=== PATIENT | female | born 1945 | race Caucasian/White ===

== ENCOUNTER 2018-04-03 01:07 | Emergency (ER) | payer OTHER ==
[2018-04-03] MEDS ORDERED: THIAMINE 200 MG/2 ML INJ ONE (03:04)
[2018-04-03] MEDS ORDERED: NA CHLORIDE 0.9% 1,000 ML ONE (03:04)
[2018-04-03 03:07] LABS: Absolute Lymphocytes (CBC) 1.5 K/uL (0.7-4.9); Absolute Monocytes 1.1 K/uL (0.1-1.3); Absolute Neutrophil 6.9 K/uL (1.8-8.0); Basophils % 0.5 % (0-1.3); Eosinophils % 4.6 % (0-4.4); Hematocrit 40.1 % (36.0-45.0); Lymphocytes % 15.4 % (15.3-44.8); MCH 33.7 pg (27.0-35.0); MCV 99.9 fL (80-100); MPV 7.5 fL (7.6-11.3); Monocytes % 10.7 % (3.3-12.3); RBC Red Blood Cell Count 4.02 M/uL (3.86-4.86)
[2018-04-03 03:20] LABS: Protime INR 0.97
[2018-04-03 03:27] LABS: Barbiturates NEGATIVE (NEGATIVE); Benzodiazepines POSITIVE (NEGATIVE); Cocaine NEGATIVE (NEGATIVE); METHAMPHETAM NEGATIVE (NEGATIVE); Methadone NEGATIVE (NEGATIVE); Opiates POSITIVE (NEGATIVE); Phencyclidine NEGATIVE (NEGATIVE); THC Cannibis NEGATIVE (NEGATIVE)
[2018-04-03 03:35] LABS: ALT/SGPT 15 U/L (12-78); AST/SGOT 22 U/L (15-37); Albumin 3.6 g/dL (3.4-5.0); Alkaline Phosphatase 142 U/L (45-117); BUN Blood Urea Nitrogen 12 mg/dL (7-18); Bicarbonate 29 mmol/L (21-32); Bilirubin Direct 0.1 mg/dL (0-0.2); Bilirubin Total 0.4 mg/dL (0.2-1.0); CKMB Creatine Kinase MB 8.2 ng/mL (0.3-3.6); Creatine Phosphokinase 139 U/L (26-192); Glucose Level 91 mg/dL (74-106); Magnesium 1.9 mg/dL (1.8-2.4); NT PRO-BNP 569 pg/mL (<125); Potassium 4.8 mmol/L (3.5-5.1); Protein, Total 7.6 g/dL (6.4-8.2); Sodium Level 136 mmol/L (136-145)
[2018-04-03 03:42] LABS: Alcohol Serum/Plasma < 3 mg/dL (<3)
[2018-04-03 03:45] LABS: Urine Blood NEGATIVE (NEG); Urine Glucose NEGATIVE (NEG); Urine Protein NEGATIVE (NEG); Urine Specific Gravity <1.005 (1.005-1.030)
--- NOTE | 2018-04-03 05:57 | ER ---
Nurse's Notes [facility] Name: Shilpa Richardson Age: 72 yrs Sex: Female : 1945 Arrival Date: 04/03/2018 Time: 01:13 Bed 7 Private MD: Diagnosis: Weakness;Fall due to bumping against object;Chronic obstructive pulmonary disease, unspecified Presentation: 04/03 01:13 Presenting complaint: EMS states: Pt was getting out of bed and felt dizzy and fell and tl2 hit her head on the wall. Denies LOC. Reports dizziness. Contusions noted to right side of forehead. Transition of care: patient was not received from another setting of care. Onset of symptoms was April 03, 2018 at 00:30. Risk Assessment: Do you want to hurt yourself or someone else? Patient reports no desire to harm self or others. Initial Sepsis Screen: Does the patient meet any 2 criteria? No. Patient's initial sepsis screen is negative. Does the patient have a suspected source of infection? No. Patient's initial sepsis screen is negative. Care prior to arrival: None. 01:13 Method Of Arrival: EMS: [facility] tl2 01:13 Acuity: PATRICIA 3 tl2 Triage Assessment: 01:19 General: Appears in no apparent distress. uncomfortable, Behavior is calm, cooperative, tl2 appropriate for age. Pain: Complains of pain in headache, forehead Pain does not radiate. Pain currently is 8 out of 10 on a pain scale. Neuro: Level of Consciousness is awake, alert, obeys commands, Oriented to person, place, time, situation. Neuro: Reports dizziness, headache. Cardiovascular: Denies chest pain. Respiratory: Airway is patent Respiratory effort is even, unlabored, Respiratory pattern is regular, symmetrical. GI: No signs and/or symptoms were reported involving the gastrointestinal system. : No signs and/or symptoms were reported regarding the genitourinary system. Derm: Skin is pink, warm \T\ dry. Injury Description: Head injury sustained to forehead is closed, did not have loss of consciousness, was sustained 1-2 hours ago. Historical: - Allergies: 01:19 Erythromycin; tl2 01:19 PENICILLINS; tl2 - Home Meds: :19 atenolol 50 mg Oral tab 1 tab once daily [Active]; baclofen 10 mg Oral tab 1 tab twice tl2 a day [Active]; clonidine HCl 0.1 mg Oral tab 1 tab PRN [Active]; Norvasc 5 mg Oral tab 1 tab once daily [Active]; Xanax 0.5 mg Oral tab 1 tab as needed [Active]; simvastatin 20 mg Oral tab 1 tab nightly [Active]; Symbicort 160-4.5 mcg/actuation inhalation HFAA 2 puffs 2 times per day [Active]; Restoril 30 mg Oral cap 1 cap once daily [Active]; Amitiza 8 mcg Oral cap 1 cap 2 times per day [Active]; - PMHx: 01:19 Alcoholism; Anxiety; Chronic pain; COPD; Depression; Hypertension; tl2 - PSHx: 01:19 Cholecystectomy; tl2 - Immunization history:: Adult Immunizations up to date. - Social history:: Smoking status: Patient/guardian denies using tobacco, the patient reports quitting approximately 4 years ago. - Ebola Screening: : No symptoms or risks identified at this time. Screenin:22 Abuse screen: Denies threats or abuse. Nutritional screening: No deficits noted. tl2 Tuberculosis screening: No symptoms or risk factors identified. Fall Risk Fall in past 12 months (25 points). Assessment: 01:19 General: see triage assessment. tl2 03:18 Reassessment: Patient appears in no apparent distress at this time. Patient and/or tl2 family updated on plan of care and expected duration. Pain level reassessed. Patient is alert, oriented x 3, equal unlabored respirations, skin warm/dry/pink. 06:04 Reassessment: Assisted patient to [facility]. lp1 06:20 Reassessment: Called taxi service, coming from [place]. Will discharge pt when taxi tl2 arrives. 07:10 Reassessment: Taxi here to transport pt. jl7 Vital Signs: 01:19 BP 156 / 83; Pulse 94; Resp 20; Temp 98.1(O); Pulse Ox 94% on 2 lpm NC; Weight 42.64 tl2 kg; Height 4 ft. 11 in. (149.86 cm); Pain 8/10; 03:16 BP 146 / 81; Pulse 83; Resp 18; Pulse Ox 92% on 2 lpm NC; tl2 04:42 BP 124 / 76; Pulse 85; Resp 18; Pulse Ox 96% on 2 lpm NC; tl2 06:53 BP 148 / 75 Supine; Pulse 84; tl2 06:53 BP 137 / 93 Sitting; Pulse 88; tl2 06:53 BP 156 / 84 Standing; Pulse 97; tl2 07:21 BP 144 / 83; Pulse 85; Resp 19; Pulse Ox 96% on 2 lpm NC; jl7 01:19 Body Mass Index 18.99 (42.64 kg, 149.86 cm) tl2 ED Course: 01:13 Patient arrived in ED. tl2 01:15 Triage completed. tl2 01:19 Arm band placed on right wrist. tl2 01:22 Patient has correct armband on for positive identification. Bed in low position. Call tl2 light in reach. Side rails up X2. 01:30 Inserted saline lock: 22 gauge in left forearm, using aseptic technique. ks6 02:09 Hector Gray MD is Attending Physician. priti 02:[address] via stretcher. kw1 02:14 CT Head Brain wo Cont In Process Unspecified. EDMS 02:25 CT C Spine In Process Unspecified. EDMS 02:40 XRAY Chest (1 view) In Process Unspecified. EDMS 03:14 Nataliia Beckford, ANJUM is Primary Nurse. tl2 07:21 No provider procedures requiring assistance completed. IV discontinued, intact, jl7 bleeding controlled, No redness/swelling at site. Pressure dressing applied. Administered Medications: 03:15 Drug: NS 0.9% 500 ml Route: IV; Rate: bolus; Site: left wrist; tl2 03:15 Drug: NS 0.9% 1000 ml Route: IV; Rate: 125 ml/hr; Site: left wrist; tl2 03:16 Drug: Thiamine 100 mg Route: IV; Rate: bolus; Site: left wrist; tl2 Point of Care Testing: Blood Glucose: 01:19 Blood Glucose: 112 mg/dL; tl2 Ranges: Outcome: 05:56 Discharge ordered by . priti 07:22 Discharged to home via wheelchair. jl7 07:22 Condition: stable 07:22 Discharge instructions given to patient, Instructed on discharge instructions, follow up and referral plans. Demonstrated understanding of instructions, follow-up care. 07:23 Patient left the ED. jl7 Signatures: Dispatcher [employer] EDMS Hector Gray MD MD cha Pena, Laura, RN RN lp1 Nataliia Beckford, RN RN tl2 Wade Hernandez, RN RN jl7 Amanda Cobos1 Elias Delatorre6
--- NOTE | 2018-04-03 05:57 | EDPHYS ---
Physician Documentation [facility] Name: Shilpa Richardson Age: 72 yrs Sex: Female : 1945 Arrival Date: 04/03/2018 Time: 01:13 Bed 7 Private MD: ED Physician Hector Gray HPI: 04/03 02:47 This 72 yrs old Female presents to ER via EMS with complaints of Fall Injury. [facility] 02:47 Details of fall: The patient fell from an upright position, while standing, while priti walking. Onset: The symptoms/episode began/occurred just prior to arrival. Associated injuries: The patient sustained injury to the head, neck injury. Severity of symptoms: At their worst the symptoms were mild, in the emergency department the symptoms are unchanged. The patient has experienced similar episodes in the past, multiple times. Historical: - Allergies: 01:19 Erythromycin; tl2 01:19 PENICILLINS; tl2 - Home Meds: 01:19 atenolol 50 mg Oral tab 1 tab once daily [Active]; baclofen 10 mg Oral tab 1 tab twice tl2 a day [Active]; clonidine HCl 0.1 mg Oral tab 1 tab PRN [Active]; Norvasc 5 mg Oral tab 1 tab once daily [Active]; Xanax 0.5 mg Oral tab 1 tab as needed [Active]; simvastatin 20 mg Oral tab 1 tab nightly [Active]; Symbicort 160-4.5 mcg/actuation inhalation HFAA 2 puffs 2 times per day [Active]; Restoril 30 mg Oral cap 1 cap once daily [Active]; Amitiza 8 mcg Oral cap 1 cap 2 times per day [Active]; - PMHx: 01:19 Alcoholism; Anxiety; Chronic pain; COPD; Depression; Hypertension; tl2 - PSHx: 01:19 Cholecystectomy; tl2 - Immunization history:: Adult Immunizations up to date. - Social history:: Smoking status: Patient/guardian denies using tobacco, the patient reports quitting approximately 4 years ago. - Ebola Screening: : No symptoms or risks identified at this time. ROS: 02:49 Constitutional: Negative for fever, chills, and weight loss, Eyes: Negative for injury, priti pain, redness, and discharge, ENT: Negative for injury, pain, and discharge, Neck: Negative for injury, pain, and swelling, Cardiovascular: Negative for chest pain, palpitations, and edema, Respiratory: Negative for shortness of breath, cough, wheezing, and pleuritic chest pain, Abdomen/GI: Negative for abdominal pain, nausea, vomiting, diarrhea, and constipation, Back: Negative for injury and pain, : Negative for injury, bleeding, discharge, and swelling, MS/Extremity: Negative for injury and deformity, Skin: Negative for injury, rash, and discoloration, Psych: Negative for depression, anxiety, suicide ideation, homicidal ideation, and hallucinations, Allergy/Immunology: Negative for hives, rash, and allergies, Endocrine: Negative for neck swelling, polydipsia, polyuria, polyphagia, and marked weight changes, Hematologic/Lymphatic: Negative for swollen nodes, abnormal bleeding, and unusual bruising. 02:49 Neuro: Positive for dizziness, near syncope, weakness. Exam: 02:49 Constitutional: This is a well developed, well nourished patient who is awake, alert, priti and in no acute distress. Eyes: Pupils equal round and reactive to light, extra-ocular motions intact. Lids and lashes normal. Conjunctiva and sclera are non-icteric and not injected. Cornea within normal limits. Periorbital areas with no swelling, redness, or edema. ENT: Nares patent. No nasal discharge, no septal abnormalities noted. Tympanic membranes are normal and external auditory canals are clear. Oropharynx with no redness, swelling, or masses, exudates, or evidence of obstruction, uvula midline. Mucous membranes moist. Neck: Trachea midline, no thyromegaly or masses palpated, and no cervical lymphadenopathy. Supple, full range of motion without nuchal rigidity, or vertebral point tenderness. No Meningismus. Chest/axilla: Normal chest wall appearance and motion. Nontender with no deformity. No lesions are appreciated. Cardiovascular: Regular rate and rhythm with a normal S1 and S2. No gallops, murmurs, or rubs. Normal PMI, no JVD. No pulse deficits. Respiratory: Lungs have equal breath sounds bilaterally, clear to auscultation and percussion. No rales, rhonchi or wheezes noted. No increased work of breathing, no retractions or nasal flaring. Abdomen/GI: Soft, non-tender, with normal bowel sounds. No distension or tympany. No guarding or rebound. No evidence of tenderness throughout. Back: No spinal tenderness. No costovertebral tenderness. Full range of motion. Skin: Warm, dry with normal turgor. Normal color with no rashes, no lesions, and no evidence of cellulitis. MS/ Extremity: Pulses equal, no cyanosis. Neurovascular intact. Full, normal range of motion. Psych: Awake, alert, with orientation to person, place and time. Behavior, mood, and affect are within normal limits. 02:49 Neuro: Orientation: is normal, appropriate for stated age, no acute changes, Mentation: is normal, appropriate for stated age, no acute changes, Memory: is normal, appropriate for stated age, no acute changes, Cranial nerves: grossly normal, is grossly normal based on the patient's age, no acute changes, Cerebellar function: no acute changes, Romberg testing is negative, normal finger to nose testing, Motor: moves all fours, Sensation: no obvious gross deficits, Gait: shuffling, Deep tendon reflexes are Babinski testing is normal, seizure activity. Vital Signs: 01:19 BP 156 / 83; Pulse 94; Resp 20; Temp 98.1(O); Pulse Ox 94% on 2 lpm NC; Weight 42.64 tl2 kg; Height 4 ft. 11 in. (149.86 cm); Pain 8/10; 03:16 BP 146 / 81; Pulse 83; Resp 18; Pulse Ox 92% on 2 lpm NC; tl2 04:42 BP 124 / 76; Pulse 85; Resp 18; Pulse Ox 96% on 2 lpm NC; tl2 06:53 BP 148 / 75 Supine; Pulse 84; tl2 06:53 BP 137 / 93 Sitting; Pulse 88; tl2 06:53 BP 156 / 84 Standing; Pulse 97; tl2 07:21 BP 144 / 83; Pulse 85; Resp 19; Pulse Ox 96% on 2 lpm NC; jl7 01:19 Body Mass Index 18.99 (42.64 kg, 149.86 cm) tl2 MDM: 02:09 Patient medically screened. [facility] 02:49 Data reviewed: vital signs, nurses notes, lab test result(s), EKG, radiologic studies. [facility] 04/03 02:15 Order name: Basic Metabolic Panel; Complete Time: 03:54 [facility] 04/03 02:15 Order name: CBC with Diff; Complete Time: 03:54 [facility] 04/03 02:15 Order name: Ckmb; Complete Time: 03:54 priti 04/03 02:15 Order name: CPK; Complete Time: 03:54 priti 04/03 02:15 Order name: LFT's; Complete Time: 03:54 priti 04/03 02:15 Order name: Magnesium; Complete Time: 03:54 [facility] 04/03 02:15 Order name: NT PRO-BNP; Complete Time: 03:54 [facility] 04/03 02:15 Order name: PT-INR; Complete Time: 03:54 priti 04/03 02:15 Order name: Ptt, Activated; Complete Time: 03:54 priti 04/03 02:15 Order name: Troponin (emerg Dept Use Only); Complete Time: 03:54 [facility] 04/03 02:15 Order name: Acetaminophen; Complete Time: 03:54 priti 04/03 02:15 Order name: ETOH Level; Complete Time: 03:54 [facility] 04/03 02:15 Order name: Salicylate; Complete Time: 03:54 [facility] 04/03 02:15 Order name: Urine Drug Screen; Complete Time: 03:54 [facility] 04/03 01:24 Order name: CT Head Brain wo Cont tl2 04/03 02:15 Order name: XRAY Chest (1 view) 04/03 02:15 Order name: EKG; Complete Time: 02:16 [facility] 04/03 02:15 Order name: Cardiac monitoring; Complete Time: 02:19 priti 04/03 02:15 Order name: EKG - Nurse/Tech; Complete Time: 02:19 [facility] 04/03 02:15 Order name: IV Saline Lock; Complete Time: 02:18 [facility] 04/03 02:15 Order name: Labs collected and sent; Complete Time: 02:19 [facility] 04/03 02:15 Order name: O2 Per Protocol; Complete Time: 02:18 priti 04/03 02:15 Order name: O2 Sat Monitoring; Complete Time: 02:18 priti 04/03 02:15 Order name: Urine Dipstick-Ancillary (obtain specimen); Complete Time: 03:16 priti 04/03 02:17 Order name: CT C Spine 04/03 03:15 Order name: Urine Dipstick--Ancillary (enter results); Complete Time: 03:54 sd 04/03 05:54 Order name: Orthostatics; Complete Time: 06:55 priti Administered Medications: 03:15 Drug: NS 0.9% 500 ml Route: IV; Rate: bolus; Site: left wrist; tl2 03:15 Drug: NS 0.9% 1000 ml Route: IV; Rate: 125 ml/hr; Site: left wrist; tl2 03:16 Drug: Thiamine 100 mg Route: IV; Rate: bolus; Site: left wrist; tl2 Point of Care Testing: Blood Glucose: 01:19 Blood Glucose: 112 mg/dL; tl2 Ranges: Critical Glucose Levels:Adult <50 mg/dl or >400 mg/dl <40 mg/dl or >180 mg/dl Disposition: 04/03/18 05:56 Discharged to Home. Impression: Weakness, Fall due to bumping against object, Chronic obstructive pulmonary disease, unspecified. - Condition is Stable. - Discharge Instructions: Chronic Bronchitis, Dizziness, Head Injury, Adult, Weakness, Fatigue, Weakness, [id number], Head Injury, Adult, [id number], Dizziness, [id number]. - Medication Reconciliation Form, Thank You Letter, Antibiotic Education, Prescription Opioid Use form. - Follow up: Private Physician; When: 2 - 3 days; Reason: Recheck today's complaints, Continuance of care, Re-evaluation by your physician. - Problem is new. - Symptoms have improved. Signatures: Dispatcher [employer] [facility] Hector Gray MD MD cha Knox, Taylor, RN RN tl2 Wade Hernandez RN RN jl7 Corrections: (The following items were deleted from the chart) 02:27 02:16 Head C Spine MPR Wo Con+CT.RAD.BRZ ordered. [facility] 07:23 05:56 04/03/2018 05:56 Discharged to Home. Impression: Weakness; Fall due to bumping jl7 against object; Chronic obstructive pulmonary disease, unspecified. Condition is Stable. Forms are Medication Reconciliation Form, Thank You Letter, Antibiotic Education, Prescription Opioid Use. Follow up: Private Physician; When: 2 - 3 days; Reason: Recheck today's complaints, Continuance of care, Re-evaluation by your physician. Problem is new. Symptoms have improved. priti
[2018-04-03 07:28] VITALS: TEMP 98.1
[2018-04-03 07:31] VITALS: O2SAT 96
[2018-04-03 07:33] VITALS: BP 144/83
--- NOTE | 2018-04-03 09:28 | EKG ---
Test Date: 2018-04-03 Test Time: 04:04:03 Scourer: AUDREY MEASUREMENT RESULTS: Intervals: Rate: 87 IN: 166 QRSD: 88 QT: 346 QTc: 416 Gerton: P: 95 IN: 166 QRS: 66 T: 66 INTERPRETIVE STATEMENTS: Normal sinus rhythm Normal ECG Compared to ECG 06/03/2017 00:23:59 No significant changes Electronically Signed On 04-03-18 09:28:09 CDT by Kee Haile
--- NOTE | 2018-04-03 11:30 | RAD REPORT ---
EXAM DESCRIPTION: CT - Head Brain Wo Cont - 04/03/2018 4:08 am CLINICAL HISTORY: Dizzy, syncope, fall A preliminary written report was provided at the time of the study, and the report was reviewed prio r to final dictation. COMPARISON: CT head July 2016 TECHNIQUE: Axial 5 mm thick images of the head were obtained without IV contrast. All CT scans are performed using dose optimization technique as appropriate and may include automated exposure control or mA/KV adjustment according to patient size. FINDINGS: No intracranial hemorrhage, mass, edema or shift of mid-line structures. No acute cortical based infarction. Mild to moderate atrophy and chronic ischemic changes are present. Ventricular si ze is in proportion to the volume loss. No abnormal extra-axial fluid collections. Arterial and phys iologic calcifications are present. Mastoid air cells and visualized portions of the paranasal sinuses are clear. No acute bony findings. IMPRESSION: Negative non-contrast CT head examination for acute finding. Atrophy and chronic ischemic changes are present similar to 2016.
--- NOTE | 2018-04-03 11:33 | RAD REPORT ---
EXAM DESCRIPTION: CT - C Spine Wo Con - 04/03/2018 2:25 am CLINICAL HISTORY: Fall, neck pain Preliminary imaging report was not available for correlation. COMPARISON: None. TECHNIQUE: Axial 2 mm thick images of the cervical spine were obtained with sagittal and coronal rec onstruction images generated and reviewed. All CT scans are performed using dose optimization technique as appropriate and may include automated exposure control or mA/KV adjustment according to patient size. FINDINGS: Cervical bodies are normal in height. There is slight anterior subluxation C2. Slight C4 a nd C5 retrolisthesis noted. Advanced degenerative disc disease is present from C2 - C6. Mild bilatera l foraminal encroachment at C4-5 and C5-6. Central spinal stenosis present at C4-5. No pathologic bon e process. No fracture or acute bony abnormality. No paraspinal mass or hematoma. Central canal detail is inherently limited on CT imaging. IMPRESSION: Prominent cervical spine degenerative change as detailed. No acute findings seen.
--- NOTE | 2018-04-03 11:34 | RAD REPORT ---
EXAM DESCRIPTION: RAD - Chest Single View - 04/03/2018 2:41 am CLINICAL HISTORY: Fall, weakness, dizziness, cough and congestion COMPARISON: July 2017 TECHNIQUE: AP portable chest image was obtained 0229 hours . FINDINGS: Interstitial fibrotic pattern is present similar to baseline. No superimposed failure, inf iltrate or mass. Heart and vasculature are normal. No measurable pleural effusion and no pneumothorax . No gross bony abnormality seen. No acute aortic findings suspected. IMPRESSION: No acute cardiopulmonary process. No significant change from comparison.
== END 2018-04-03 07:23 | disposition home or self-care (01) ==
LOC: ER 01:07
DX: R53.1 Weakness (principal); J44.9 Chronic obstructive pulmonary disease, unspecified
CPT/HCPCS: 36415; 70450; 71045; 72125; 80048; 80076; 80307 ×8; 80320; 80329 ×2; 81003; 82550; 82553; 83735; 83880; 84484; 85025; 85610; 85730; 93005; J3411; J7030; 96374; 99284

== ENCOUNTER 2018-04-04 09:30 | Observation (INO) | payer OTHER ==
[2018-04-04] MEDS ORDERED: NA CHLORIDE 0.9% 1,000 ML ONE (10:12)
[2018-04-04] MEDS ORDERED: THIAMINE 200 MG/2 ML INJ ONE (10:26)
[2018-04-04 10:56] LABS: Urine Blood NEGATIVE (NEG); Urine Glucose NEGATIVE (NEG); Urine Protein NEGATIVE (NEG); Urine pH 7.5 (5.0-7.0)
[2018-04-04 11:04] LABS: Barbiturates NEGATIVE (NEGATIVE); Benzodiazepines POSITIVE (NEGATIVE); Cocaine NEGATIVE (NEGATIVE); METHAMPHETAM NEGATIVE (NEGATIVE); Methadone NEGATIVE (NEGATIVE); Opiates NEGATIVE (NEGATIVE); Phencyclidine NEGATIVE (NEGATIVE); THC Cannibis NEGATIVE (NEGATIVE)
--- NOTE | 2018-04-04 11:27 | RAD REPORT ---
EXAM DESCRIPTION: CT - Head Brain Wo Cont - 04/04/2018 11:22 am CLINICAL HISTORY: Dizziness;Syncope Drowsiness COMPARISON: Head Brain Wo Cont dated 04/03/2018; Head Brain Wo Cont dated 07/07/2016 TECHNIQUE: All CT scans are performed using dose optimization technique as appropriate and may inclu de automated exposure control or mA/KV adjustment according to patient size. FINDINGS: No intracranial hemorrhage, hydrocephalus or extra-axial fluid collection.Mild generalized brain atrophy is present with mild periventricular and deep white matter chronic microvascular ische marcella changes.No areas of brain edema or evidence of midline shift. The paranasal sinuses and mastoids are clear. The calvarium is intact. IMPRESSION: No acute intracranial abnormality.
--- NOTE | 2018-04-04 11:49 | RAD REPORT ---
EXAM DESCRIPTION: RAD - Chest Single View - 04/04/2018 11:26 am CLINICAL HISTORY: COUGH Chest pain. COMPARISON: Chest Single View dated 04/03/2018; Chest Pa And Lat (2 Views) dated 07/12/2017; Chest Sin gle View dated 06/03/2017; Chest Single View dated 04/05/2016 FINDINGS: Portable technique limits examination quality. The lungs are grossly clear. The heart is upper limit normal in size. No displaced fractures. IMPRESSION: No acute intrathoracic process suspected.
--- NOTE | 2018-04-04 12:16 | RAD REPORT ---
EXAM DESCRIPTION: VAS - CP - 04/04/2018 11:22 am CLINICAL HISTORY: DIZZINESS Syncope COMPARISON: C Spine Wo Con dated 04/03/2018; Carotid Artery Bilateral dated 04/03/2016; CAROTID ARTERY BILATERAL dated 02/06/2015 TECHNIQUE: Real-time sonographic evaluation of both carotid systems was performed. Doppler interroga tion was performed with waveform tracing bilaterally. FINDINGS: Normal high resistance waveforms are noted in both external carotid arteries. The common c arotid arteries and internal carotid arteries show normal low resistance waveforms. Diffuse intimal thickening is present bilaterally. Multifocal multisegmental atherosclerotic plaquing is present, predominately hard plaque involving both carotid systems. Right common carotid artery mi d aspect demonstrates elevated peak systolic velocity 420 cm/second distal to a moderate stenosis cau sed by atherosclerotic plaque focally. Elevated peak systolic velocity in the left carotid bulb is no arianna to 220 cm/second, likely indicating stenosis of 50-70%. Antegrade flow seen in both vertebral arteries. Right ICA to CCA ratio is 1.6. Left ICA to CCA ratio is 1.8. IMPRESSION: A hemodynamically significant moderate stenosis right mid common carotid artery is suspe cted. Stenosis at the level of the left carotid bulb suspected estimated at 50-70%, caused by atherosclerot ic plaque. MR angiography of the neck vessels could be obtained for further assessment if clinically indicated.
[2018-04-04 12:28] LABS: Protime INR 0.97
--- NOTE | 2018-04-04 12:32 | EDPHYS ---
Physician Documentation [facility] Name: Shilpa Richardson Age: 72 yrs Sex: Female : 1945 Arrival Date: 04/04/2018 Time: 09:34 Bed 4 Private MD: Temo Tran E ED Physician Hector Gray HPI: 04/04 10:29 This 72 yrs old Female presents to ER via Wheelchair with complaints of Fall priti Injury, Doesn't Feel Right. 10:29 Details of fall: The patient fell from an upright position. Onset: The symptoms/episode priti began/occurred just prior to arrival. Associated injuries: The patient sustained injury to the head. Severity of symptoms: At their worst the symptoms were mild, in the emergency department the symptoms are unchanged. The patient has not experienced similar symptoms in the past. Historical: - Allergies: : Erythromycin; iw 09:59 PENICILLINS; iw - Home Meds: :59 Amitiza 8 mcg Oral cap 1 cap 2 times per day [Active]; atenolol 50 mg Oral tab 1 tab iw once daily [Active]; baclofen 10 mg Oral tab 1 tab twice a day [Active]; clonidine HCl 0.1 mg Oral tab 1 tab PRN [Active]; Norvasc 5 mg Oral tab 1 tab once daily [Active]; Restoril 30 mg Oral cap 1 cap once daily [Active]; simvastatin 20 mg Oral tab 1 tab nightly [Active]; Symbicort 160-4.5 mcg/actuation inhalation HFAA 2 puffs 2 times per day [Active]; Xanax 0.5 mg Oral tab 1 tab as needed [Active]; - PMHx: 09:59 Anxiety; Chronic pain; Alcoholism; COPD; Depression; Hypertension; iw - PSHx: 09:59 Cholecystectomy; iw - Immunization history:: Adult Immunizations not up to date. - Social history:: Smoking status: Patient/guardian denies using tobacco, the patient reports quitting approximately 5 years ago. - Ebola Screening: : Patient negative for fever greater than or equal to 101.5 degrees Fahrenheit, and additional compatible Ebola Virus Disease symptoms Patient denies exposure to infectious person Patient denies travel to an Ebola-affected area in the 21 days before illness onset No symptoms or risks identified at this time. - Family history:: not pertinent. ROS: 10:29 Constitutional: Negative for fever, chills, and weight loss, Eyes: Negative for injury, priti pain, redness, and discharge, ENT: Negative for injury, pain, and discharge, Neck: Negative for injury, pain, and swelling, Cardiovascular: Negative for chest pain, palpitations, and edema, Respiratory: Negative for shortness of breath, cough, wheezing, and pleuritic chest pain, Abdomen/GI: Negative for abdominal pain, nausea, vomiting, diarrhea, and constipation, Back: Negative for injury and pain, : Negative for injury, bleeding, discharge, and swelling, MS/Extremity: Negative for injury and deformity, Skin: Negative for injury, rash, and discoloration, Psych: Negative for depression, anxiety, suicide ideation, homicidal ideation, and hallucinations, Allergy/Immunology: Negative for hives, rash, and allergies, Endocrine: Negative for neck swelling, polydipsia, polyuria, polyphagia, and marked weight changes, Hematologic/Lymphatic: Negative for swollen nodes, abnormal bleeding, and unusual bruising. 10:29 Neuro: Positive for altered mental status, near syncope, weakness. Exam: 10:29 Constitutional: This is a well developed, well nourished patient who is awake, alert, priti and in no acute distress. Head/Face: Normocephalic, atraumatic. Eyes: Pupils equal round and reactive to light, extra-ocular motions intact. Lids and lashes normal. Conjunctiva and sclera are non-icteric and not injected. Cornea within normal limits. Periorbital areas with no swelling, redness, or edema. ENT: Nares patent. No nasal discharge, no septal abnormalities noted. Tympanic membranes are normal and external auditory canals are clear. Oropharynx with no redness, swelling, or masses, exudates, or evidence of obstruction, uvula midline. Mucous membranes moist. Neck: Trachea midline, no thyromegaly or masses palpated, and no cervical lymphadenopathy. Supple, full range of motion without nuchal rigidity, or vertebral point tenderness. No Meningismus. Chest/axilla: Normal chest wall appearance and motion. Nontender with no deformity. No lesions are appreciated. Cardiovascular: Regular rate and rhythm with a normal S1 and S2. No gallops, murmurs, or rubs. Normal PMI, no JVD. No pulse deficits. Respiratory: Lungs have equal breath sounds bilaterally, clear to auscultation and percussion. No rales, rhonchi or wheezes noted. No increased work of breathing, no retractions or nasal flaring. Abdomen/GI: Soft, non-tender, with normal bowel sounds. No distension or tympany. No guarding or rebound. No evidence of tenderness throughout. Back: No spinal tenderness. No costovertebral tenderness. Full range of motion. Skin: Warm, dry with normal turgor. Normal color with no rashes, no lesions, and no evidence of cellulitis. MS/ Extremity: Pulses equal, no cyanosis. Neurovascular intact. Full, normal range of motion. Neuro: Awake and alert, GCS 15, oriented to person, place, time, and situation. Cranial nerves II-XII grossly intact. Motor strength 5/5 in all extremities. Sensory grossly intact. Cerebellar exam normal. Normal gait. Psych: Awake, alert, with orientation to person, place and time. Behavior, mood, and affect are within normal limits. Vital Signs: 09:58 BP 179 / 87; Pulse 109; Resp 18 S; Pulse Ox 98% on R/A; Weight 42.64 kg; Height 4 ft. iw 11 in. (149.86 cm); Pain 0/10; 10:59 BP 165 / 89; Pulse 109; Resp 16; Pulse Ox 98% on R/A; mh5 11:30 BP 108 / 66; Pulse 103; Resp 12; Pulse Ox 97% on 2 lpm NC; sv 12:15 BP 150 / 80; Pulse 105; Resp 16; Pulse Ox 97% on 2 lpm NC; sv 13:28 BP 166 / 83; Pulse 110; Resp 20; Pulse Ox 97% on 2 lpm NC; sv 09:58 Body Mass Index 18.99 (42.64 kg, 149.86 cm) iw Raymond Coma Score: 09:55 Eye Response: spontaneous(4). Verbal Response: oriented(5). Motor Response: obeys sv commands(6). Total: 15. Trauma Score (Adult): 09:55 Eye Response: spontaneous(1); Verbal Response: oriented(1); Motor Response: obeys sv commands(2); Systolic BP: > 89 mm Hg(4); Respiratory Rate: 10 to 29 per min(4); Raymond Score: 15; Trauma Score: 12 MDM: 09:55 Patient medically screened. [facility] 10:31 Data reviewed: vital signs, nurses notes, lab test result(s), EKG, radiologic studies, [facility] CT scan. 04/04 10:02 Order name: Basic Metabolic Panel [facility] 04/04 10:02 Order name: CBC with Diff [facility] 04/04 10:02 Order name: Ckmb [facility] 04/04 10:02 Order name: CPK [facility] 04/04 10:02 Order name: LFT's [facility] 04/04 10:02 Order name: Magnesium [facility] 04/04 10:02 Order name: NT PRO-BNP [facility] 04/04 10:02 Order name: PT-INR [facility] 04/04 10:02 Order name: Ptt, Activated [facility] 04/04 10:02 Order name: Troponin (emerg Dept Use Only) [facility] 04/04 10:02 Order name: Lipase [facility] 04/04 10:02 Order name: Acetaminophen [facility] 04/04 10:02 Order name: ETOH Level [facility] 04/04 10:02 Order name: Salicylate [facility] 04/04 10:02 Order name: XRAY Chest (1 view); Complete Time: 12:26 [facility] 04/04 10:02 Order name: US Carotid Artery Bilateral; Complete Time: 12:26 [facility] 04/04 10:02 Order name: Urine Drug Screen; Complete Time: 12:26 [facility] 04/04 10:02 Order name: Echo w/ Doppler [facility] 04/04 10:03 Order name: Basic Metabolic Panel [facility] 04/04 10:03 Order name: CBC with Automated Diff [facility] 04/04 10:03 Order name: CKMB Creatine Kinase MB [facility] 04/04 10:03 Order name: Creatine Phosphokinase [facility] 04/04 10:03 Order name: Liver (Hepatic) Function [facility] 04/04 10:03 Order name: Magnesium [facility] 04/04 10:03 Order name: NT PRO-BNP [facility] 04/04 10:03 Order name: TSH [facility] 04/04 10:03 Order name: Urine Culture [facility] 04/04 10:29 Order name: CT Head Brain wo Cont; Complete Time: 12:26 [facility] 04/04 10:35 Order name: Urine Dipstick--Ancillary (enter results); Complete Time: 12:26 04/04 10:02 Order name: EKG; Complete Time: 10:03 [facility] 04/04 10:02 Order name: Cardiac monitoring; Complete Time: 10:20 priti 04/04 10:02 Order name: EKG - Nurse/Tech; Complete Time: 11:48 priti 04/04 10:02 Order name: IV Saline Lock; Complete Time: 11:47 priti 04/04 10:02 Order name: O2 Per Protocol; Complete Time: 10:20 priti 04/04 10:02 Order name: O2 Sat Monitoring; Complete Time: 10:20 priti 04/04 11:41 Order name: Diet Heart Healthy; Complete Time: 11:41 sv 04/04 12:36 Order name: CONS Physician Consult EDMS 04/04 12:36 Order name: CONS Physician Consult EDMS Administered Medications: 11:39 Drug: Thiamine 100 mg Route: IV; Rate: bolus; Site: left forearm; sv 11:39 Drug: NS 0.9% 500 ml Route: IV; Rate: bolus; Site: left forearm; sv 12:47 Follow up: Response: No adverse reaction; IV Status: Completed infusion; IV Intake: sv 500ml 12:45 Drug: Aspirin 162 mg Route: PO; sg 13:00 Follow up: Response: No adverse reaction sv 12:45 Drug: foLIC Acid 1 mg Route: IVPB; Site: left wrist; sg 12:48 Drug: NS 0.9% 1000 ml Route: IV; Rate: 125 ml/hr; Site: left forearm; sv 13:30 Follow up: Response: No adverse reaction; IV Status: Infusion continued upon admission sv Disposition: 04/04/18 12:31 Hospitalization ordered by Vikram Guevara for Observation. Preliminary diagnosis are Syncope and collapse, Repeated falls, Weakness, Abnormal results of cardiovascular function studies - 50-70% LEFT CAROTID DISEASE. - Bed requested for Telemetry/MedSurg (observation). - Status is Observation. sv - Condition is Fair. - Problem is new. - Symptoms have improved. UTI on Admission? No Signatures: Dispatcher [employer] EDAZ Hollie Kumar Stephanie, RN RN sv Gay, Steven, RN RN sg Anderson, Corey, MD MD cha Williams, Irene RN ANJUM iw Corrections: (The following items were deleted from the chart) 11:06 10:29 Arterial Blood Gas+[id number].BRZ ordered. EDAZ EDMS 12:37 12:31 Hospitalization Ordered by Crystal Irene MD for Observation. Preliminary diagnosis priti is Syncope and collapse; Repeated falls; Weakness; Abnormal results of cardiovascular function studies - 50-70% LEFT CAROTID DISEASE. Bed requested for Telemetry/MedSurg (observation). Status is Observation. Condition is Fair. Problem is new. Symptoms have improved. UTI on Admission? No. priti 13:03 12:37 04/04/2018 12:31 Hospitalization Ordered by Vikram Guevara DO for Observation. bd Preliminary diagnosis is Syncope and collapse; Repeated falls; Weakness; Abnormal results of cardiovascular function studies - 50-70% LEFT CAROTID DISEASE. Bed requested for Telemetry/MedSurg (observation). Status is Observation. Condition is Fair. Problem is new. Symptoms have improved. UTI on Admission? No. priti 13:52 13:03 04/04/2018 12:31 Hospitalization Ordered by Vikram Guevara DO for Observation. sv Preliminary diagnosis is Syncope and collapse; Repeated falls; Weakness; Abnormal results of cardiovascular function studies - 50-70% LEFT CAROTID DISEASE. Bed requested for Telemetry/MedSurg (observation). Status is Observation. Condition is Fair. Problem is new. Symptoms have improved. UTI on Admission? No. bd
--- NOTE | 2018-04-04 12:32 | ER ---
Nurse's Notes [facility] Name: Shilpa Richardson Age: 72 yrs Sex: Female : 1945 Arrival Date: 04/04/2018 Time: 09:34 Bed 4 Private MD: Temo Tran E Diagnosis: Syncope and collapse;Repeated falls;Weakness;Abnormal results of cardiovascular function [id number]% LEFT CAROTID DISEASE Presentation: 04/04 09:55 Presenting complaint: Friend states: pt had a fall on Wednesday, was seen in ER and iw discharged, pt still having generalized weakness, and falls asleep easily when she's just sitting in her chair, pt was supposed to be admitted but she didn't want to stay on Wednesday. Transition of care: patient was not received from another setting of care. Onset of symptoms was April 02, 2018. Risk Assessment: Do you want to hurt yourself or someone else? Patient reports no desire to harm self or others. Initial Sepsis Screen: Does the patient meet any 2 criteria? No. Patient's initial sepsis screen is negative. Does the patient have a suspected source of infection? No. Patient's initial sepsis screen is negative. Care prior to arrival: None. 09:55 Method Of Arrival: Wheelchair iw 09:55 Acuity: PATRICIA 3 iw Historical: - Allergies: : Erythromycin; iw 09:59 PENICILLINS; iw - Home Meds: :59 Amitiza 8 mcg Oral cap 1 cap 2 times per day [Active]; atenolol 50 mg Oral tab 1 tab iw once daily [Active]; baclofen 10 mg Oral tab 1 tab twice a day [Active]; clonidine HCl 0.1 mg Oral tab 1 tab PRN [Active]; Norvasc 5 mg Oral tab 1 tab once daily [Active]; Restoril 30 mg Oral cap 1 cap once daily [Active]; simvastatin 20 mg Oral tab 1 tab nightly [Active]; Symbicort 160-4.5 mcg/actuation inhalation HFAA 2 puffs 2 times per day [Active]; Xanax 0.5 mg Oral tab 1 tab as needed [Active]; - PMHx: 09:59 Anxiety; Chronic pain; Alcoholism; COPD; Depression; Hypertension; iw - PSHx: 09:59 Cholecystectomy; iw - Immunization history:: Adult Immunizations not up to date. - Social history:: Smoking status: Patient/guardian denies using tobacco, the patient reports quitting approximately 5 years ago. - Ebola Screening: : Patient negative for fever greater than or equal to 101.5 degrees Fahrenheit, and additional compatible Ebola Virus Disease symptoms Patient denies exposure to infectious person Patient denies travel to an Ebola-affected area in the 21 days before illness onset No symptoms or risks identified at this time. - Family history:: not pertinent. Screenin:26 Abuse screen: Denies threats or abuse. Denies injuries from another. Nutritional sg screening: No deficits noted. Tuberculosis screening: No symptoms or risk factors identified. Never had TB. Fall Risk None identified. Assessment: 09:55 General: Appears in no apparent distress. uncomfortable, slender, Behavior is sv cooperative, appropriate for age, agitated. Pain: Denies pain. Neuro: Level of Consciousness is awake, alert, obeys commands, Oriented to person, place, time, situation, Moves all extremities. Full function Speech is normal. Cardiovascular: Heart tones S1 S2 present Patient's skin is warm and dry. Pulses are 2+ in right radial artery and left radial artery. Respiratory: Respiratory effort is even, unlabored, Respiratory pattern is regular, symmetrical, Breath sounds are clear bilaterally. Derm: Skin is normal. Musculoskeletal: Range of motion: intact in all extremities, Reports weakness in right leg and left leg. Injury Description: Abrasion sustained to right eye. 11:39 Reassessment: Patient appears in no apparent distress at this time. Patient and/or sv family updated on plan of care and expected duration. Pain level reassessed. Patient is alert, oriented x 3, equal unlabored respirations, skin warm/dry/pink. 13:00 Reassessment: Patient appears in no apparent distress at this time. Patient and/or sg family updated on plan of care and expected duration. Pain level reassessed. Patient is alert, oriented x 3, equal unlabored respirations, skin warm/dry/pink. pt requesting a soft diet d/t issues with dentation, notified, a new diet has been ordered Patient states feeling better. 13:15 Reassessment: Patient appears in no apparent distress at this time. attempt to call sg report, Jim renee for 409 unavailable at this time for report per Jose, will attempt to call again, pt updated and stated understanding, will continue to monitor. Vital Signs: 09:58 BP 179 / 87; Pulse 109; Resp 18 S; Pulse Ox 98% on R/A; Weight 42.64 kg; Height 4 ft. iw 11 in. (149.86 cm); Pain 0/10; 10:59 BP 165 / 89; Pulse 109; Resp 16; Pulse Ox 98% on R/A; mh5 11:30 BP 108 / 66; Pulse 103; Resp 12; Pulse Ox 97% on 2 lpm NC; sv 12:15 BP 150 / 80; Pulse 105; Resp 16; Pulse Ox 97% on 2 lpm NC; sv 13:28 BP 166 / 83; Pulse 110; Resp 20; Pulse Ox 97% on 2 lpm NC; sv 09:58 Body Mass Index 18.99 (42.64 kg, 149.86 cm) iw [place] Coma Score: 09:55 Eye Response: spontaneous(4). Verbal Response: oriented(5). Motor Response: obeys sv commands(6). Total: 15. Trauma Score (Adult): 09:55 Eye Response: spontaneous(1); Verbal Response: oriented(1); Motor Response: obeys sv commands(2); Systolic BP: > 89 mm Hg(4); Respiratory Rate: 10 to 29 per min(4); [place] Score: 15; Trauma Score: 12 ED Course: 09:34 Patient arrived in ED. sb2 09:34 Temo Tran MD is Private Physician. sb2 09:55 Hector Gray MD is Attending Physician. priti 09:57 Saul Castañeda, RN is Primary Nurse. sg 09:57 Primary Nurse role handed off by Saul Castañeda RN sv 09:57 Neelam Brennan, ANJUM is Primary Nurse. sv 09:58 Triage completed. iw 09:58 Arm band placed on. iw 10:02 EKG done, by rv service technician. reviewed by Hector Gray MD. at1 10:10 Patient has correct armband on for positive identification. Placed in gown. Bed in low sg position. Call light in reach. Side rails up X2. Adult w/ patient. child monitor on. Pulse ox on. NIBP on. 10:25 Inserted saline lock: 22 gauge in left wrist, using aseptic technique. unable to obtain sg blood from the IV start, pt requesting gold leaf laborer to draw blood d/t fear of needles and preference to lab draw using butterfly, lab notified for phlebotomy to come draw pt blood. 10:28 ED physician to see patient. sv 10:41 Note: patient not ready, us and echo in with patient at this time. vr 10:49 US Carotid Artery Bilateral In Process Unspecified. EDMS 11:03 Ultrasound completed. Patient tolerated well. Note: us done bedside/portable. lc3 11:[address] via stretcher. sj 11:22 CT Head Brain wo Cont In Process Unspecified. EDMS 11:25 XRAY Chest (1 view) In Process Unspecified. EDMS 11:30 Assisted with bedpan. sg 12:20 Assisted with bedpan. sg 12:28 Crystal Irene MD is Hospitalizing Provider. priti 12:37 Hospitalizing Provider role handed off by Crystal Irene MD priti 12:37 Vikram Guevara DO is Hospitalizing Provider. priti 12:44 Diet: Patient given a heart healthy meal tray. Tolerated well. sg 13:28 No provider procedures requiring assistance completed. Patient admitted, IV remains in sv place. intact. Administered Medications: 11:39 Drug: Thiamine 100 mg Route: IV; Rate: bolus; Site: left forearm; sv 11:39 Drug: NS 0.9% 500 ml Route: IV; Rate: bolus; Site: left forearm; sv 12:47 Follow up: Response: No adverse reaction; IV Status: Completed infusion; IV Intake: sv 500ml 12:45 Drug: Aspirin 162 mg Route: PO; sg 13:00 Follow up: Response: No adverse reaction sv 12:45 Drug: foLIC Acid 1 mg Route: IVPB; Site: left wrist; sg 12:48 Drug: NS 0.9% 1000 ml Route: IV; Rate: 125 ml/hr; Site: left forearm; sv 13:30 Follow up: Response: No adverse reaction; IV Status: Infusion continued upon admission sv Intake: 12:47 IV: 500ml; Total: 500ml. sv Outcome: 12:31 Decision to Hospitalize by Provider. priti 13:29 Admitted to Tele accompanied by tech, via stretcher, room 409, with oxygen, with chart, sv Report called to Jim VALERO 13:29 Condition: stable 13:29 Instructed on the need for admit. 13:52 Patient left the ED. sv Signatures: Dispatcher [employer] Neelam Owen RN RN sv Gay, Steven, RN RN sg Anderson, Corey, MD MD cha Jones, Irma Chawla RN RN iw Davis, Dorene Jovel, basketball commentator EKG Tat1 Cee Cavazos, Lillie 5 oJe, Anjali 2
[2018-04-04 12:36] LABS: Absolute Lymphocytes (CBC) 1.3 K/uL (0.7-4.9); Basophils % 0.6 % (0-1.3); Eosinophils % 3.7 % (0-4.4); Hematocrit 39.4 % (36.0-45.0); MCH 33.6 pg (27.0-35.0); MCV 99.4 fL (80-100); MPV 7.6 fL (7.6-11.3); Monocytes % 13.6 % (3.3-12.3); RBC Red Blood Cell Count 3.97 M/uL (3.86-4.86)
[2018-04-04] MEDS ORDERED: ASPIRIN 81 MG CHEWABLE TABLET ONE (13:01)
[2018-04-04] MEDS ORDERED: FOLIC ACID 5 MG/ML VIAL ONE (13:02)
[2018-04-04] MEDS ORDERED: ONDANSETRON 4 MG/2 ML VIAL IV PRN (13:03)
[2018-04-04] MEDS ORDERED: ALBUTEROL 2.5 MG/3 ML NEB SOL NEB PRN (13:03)
[2018-04-04] MEDS ORDERED: IPRATROPIUM BROM 0.5MG/2.5ML NEB PRN (13:03)
[2018-04-04] MEDS ORDERED: ACETAMINOPHEN 500 MG TAB PO PRN (13:03)
[2018-04-04 13:28] LABS: AST/SGOT 24 U/L (15-37); BUN Blood Urea Nitrogen 11 mg/dL (7-18); Bicarbonate 28 mmol/L (21-32); Glucose Level 87 mg/dL (74-106)
[2018-04-04 13:29] LABS: Bilirubin Direct 0.2 mg/dL (0-0.2); Bilirubin Total 0.4 mg/dL (0.2-1.0)
[2018-04-04 13:31] LABS: Albumin 3.5 g/dL (3.4-5.0)
[2018-04-04 13:32] LABS: Creatine Phosphokinase 154 U/L (26-192)
[2018-04-04 13:33] LABS: Lipase 139 U/L (73-393)
--- NOTE | 2018-04-04 13:39 | P.HP ---
Certification for Inpatient Patient admitted to: Observation With expected LOS: <2 Midnights Patient will require the following post-hospital care: None Practitioner: I am a practitioner with admitting privileges, knowledge of patient current condition, hospital course, and medical plan of care. Services: Services provided to patient in accordance with Admission requirements found in Title 42 Section 412.3 of the Code of Federal Regulations Patient History Date of Service: 04/04/18 Primary Care Provider: Dr. Tran; Cardiology-Dr. Velez Reason for admission: Presyncope, fall History of Present Illness: 72-year-old female presented emergency room with presyncope and fall. Patient was actually seen over the week and in the emergency room for a fall. She apparently lost her balance and fell to the ground. She denied any significant dizziness, headaches, chest pain or shortness of breath. The patient was evaluated in ER and was to be admitted but the patient declined. Today she had fell again. She came into emergency room for further evaluation. Denied any chest pain, headaches, dizziness, or shortness of breath. Patient has history of hypertension, COPD, Raynaud syndrome. In the ER patient was evaluated. Initial blood pressures were elevated at 150/ 80. Heart rate 111. Initial CT scan of the head unremarkable. Carotid Doppler showed significant moderate stenosis to the right mid common carotid artery. Stenosis at the level of the a left carotid was suspected at 50-70%. The patient was admitted for further evaluation. When I saw the patient ER, she appeared comfortable. She denied any significant problems at that time. Allergies adhesive tape Allergy (Verified 06/03/17 07:31) blisters codeine Allergy (Verified 06/03/17 07:31) Itching diphenhydramine [From Benadryl] Allergy (Verified 06/03/17 07:31) Unknown Penicillins Allergy (Verified 06/03/17 07:31) Anaphylaxis Erythromycin Allergy (Severe, Uncoded 06/03/17 07:31) Nausea/Vomiting Home Medications: ALPRAZolam [Xanax*] 0.5 mg PO BID PRN 06/03/17 Amlodipine [Norvasc*] 5 mg PO LUNCH 06/03/17 Atenolol 50 mg PO DAILY 06/03/17 Baclofen [Lioresal*] 10 mg PO BID 06/03/17 Benzonatate [Tessalon Perle] 100 mg PO TID PRN #20 cap 06/03/17 Bimatoprost [Lumigan] 1 drop EACH EYE BEDTIME 06/03/17 Budesonide/Formoterol Fumarate [Symbicort 160-4.5 Mcg Inhaler] 2 puff IH BID Cyclosporine [Restasis] 1 drop EACH EYE BID 06/03/17 Doxepin HCl [Silenor] 6 mg PO BEDTIME 06/03/17 Escitalopram [Lexapro*] 20 mg PO DAILY 06/03/17 Guaifenesin [Mucinex] 600 mg PO BID PRN #20 tablet.er 06/03/17 Hydrocodone/APAP Soln [Lortab Solution *] 1 tbs PO TIDP PRN 06/03/17 Ipratropium/Albuterol Sulfate [Combivent Respimat 20-100 Mcg] 2 puff IH DAILYPRN PRN 06/03/17 Simvastatin 20 mg PO BEDTIME 06/03/17 Tiotropium [Spiriva Handihaler*] 18 mcg IH DAILY 06/03/17 cloNIDine HCl [Catapres*] 0.1 mg PO DAILYPRN PRN 06/03/17 predniSONE [Deltasone] 10 mg PO DAILY #7 tab 06/03/17 - Past Medical/Surgical History Diabetic: No -: COPD -: HTN -: Osteoporosis -: Depression with anxiety -: Carotid arterial disease -: Insomnia -: Hyperlipidemia -: Cataracts -: Cataract sx Rt eye -: Carotid enterectomy -: Cholecystectomy -: C-sections x3 -: Tonsillectomy Psychosocial/ Personal History: She is , she has 2 children, she lives with a sister. She does not work. - Family History Father -: Heart disease, Lung disease Mother Notes: TIA's - Social History Smoking Status: Former smoker Alcohol use: Yes CD- Drugs: No Caffeine use: Yes Place of Residence: Home Review of Systems General: Weakness, As per HPI Eyes: Unremarkable ENT: Unremarkable Respiratory: Unremarkable Cardiovascular: Unremarkable Gastrointestinal: Unremarkable Genitourinary: Unremarkable Musculoskeletal: Unremarkable Integumentary: Unremarkable Neurological: Weakness, As per HPI Lymphatics: Unremarkable Physical Examination - Physical Exam General: Alert, In no apparent distress, Oriented x3, Cooperative HEENT: Atraumatic, Normocephalic, Mucous membr. moist/pink, EOMI Neck: Supple, No Thyromegaly Respiratory: Clear to auscultation bilaterally, Normal air movement Cardiovascular: Abnormal pulses (Mild tachycardia) Gastrointestinal: Normal bowel sounds, Soft and benign, Non-distended, No tenderness, No masses, No rebound, No guarding Musculoskeletal: No erythema, No tenderness, No warmth Integumentary: No tenderness/swelling, No erythema, No warmth, No cyanosis Neurological: Normal speech, Normal strength at 5/5 x4 extr, Normal tone, Normal affect - Studies Laboratory Data (last 24 hrs) 04/04/18 12:08: PT 11.4, INR 0.97, APTT 41.1 H 04/04/18 12:08: WBC 7.7 D, Hgb 13.3, Hct 39.4, Plt Count 350 04/04/18 12:08: Sodium 142, Potassium 4.3, BUN 11, Creatinine 0.56, Glucose 87, Total Bilirubin 0.4, AST 24, Lipase 139 Assessment and Plan - Problems (Diagnosis) (1) Pre-syncope Current Visit: Yes Status: Acute Plan: Patient with recurrent falls. Patient appears to have carotid arterial disease. Patient will be admitted for further evaluation. Will order echocardiogram and stroke protocol MRI. Will continue with aspirin, blood pressure medication and cholesterol medication. Will consult cardiology and neurology to further assess. Will have physical therapy ambulate. Patient may require physical therapy and home health at discharge. I will turn the service over to Dr. Kaba tomorrow. I will go over the plan of care with her. (2) Carotid artery disease Current Visit: Yes Status: Chronic Plan: Bilateral carotid disease noted. Moderate stenosis to the right common carotid. 50-70% to the left carotid bulb. Will order MRA of neck to further assess. Cardiology consulted. Qualifiers: Laterality: bilateral (3) Chronic pain disorder Current Visit: No Status: Chronic Plan: Patient with history of chronic pain. Will review and restart home medication. Will need to limit pain medication as this may be a factor in her falls. (4) Coronary artery disease Onset Date: 06/03/17 Current Visit: No Status: Chronic Plan: Continue with aspirin. Review and restart home medication. Qualifiers: (5) Depression with anxiety Onset Date: 06/03/17 Current Visit: No Status: Chronic Plan: Will need to review and restart home medication. Will need to limit benzodiazepine. Patient was positive for benzodiazepine. This may be a factor for her falls. Will physical therapy assess. (6) Hyperlipidemia Onset Date: 06/03/17 Current Visit: No Status: Chronic Plan: Will check fasting lipid panel. Will provide statin medication. Qualifiers: (7) Hypertension Onset Date: 06/03/17 Current Visit: No Status: Chronic Plan: Will discontinue atenolol. Will start metoprolol. Will continue Norvasc. Will maintain blood pressure control. Qualifiers: Hypertension type: essential hypertension (8) Alcohol abuse Current Visit: No Status: Chronic Plan: Patient reports alcohol is limited. Will need to make sure and investigate this further. (9) COPD (chronic obstructive pulmonary disease) Onset Date: 06/03/17 Current Visit: No Status: Chronic Plan: Will continue with COPD medication. Qualifiers: COPD type: chronic bronchitis Chronic bronchitis type: unspecified Qualified Code(s): J42 - Unspecified chronic bronchitis Discharge Plan: Home Plan to discharge in: 24 Hours - Advance Directives Does patient have a Living Will: No Does patient have a Durable POA for Healthcare: No - Code Status/Comfort Care Code Status Assessed: Yes Time Spent Managing Pts Care (In Minutes): 55
[2018-04-04 13:58] LABS: ALT/SGPT 14 U/L (12-78); Alkaline Phosphatase 134 U/L (45-117); CKMB Creatine Kinase MB 5.8 ng/mL (0.3-3.6); Magnesium 1.8 mg/dL (1.8-2.4); NT PRO-BNP 1230 pg/mL (<125); Protein, Total 7.4 g/dL (6.4-8.2)
[2018-04-04 13:59] LABS: Potassium 4.7 mmol/L (3.5-5.1); Sodium Level 139 mmol/L (136-145)
[2018-04-04 14:00] LABS: Alcohol Serum/Plasma < 3 mg/dL (<3)
[2018-04-04] MEDS: NA CHLORIDE 0.9% 1,000 ML IV SCH ×2 (14:00→20:51)
--- NOTE | 2018-04-04 14:01 | EKG ---
Test Date: 2018-04-04 Test Time: 09:57:58 Steep Tender: ANGEL MEASUREMENT RESULTS: Intervals: Rate: 112 OH: 160 QRSD: 84 QT: 300 QTc: 409 [place]: P: 72 OH: 160 QRS: 67 T: 98 INTERPRETIVE STATEMENTS: Sinus tachycardia Left ventricular hypertrophy with repolarization abnormality Abnormal ECG Compared to ECG 04/03/2018 04:04:03 Left ventricular hypertrophy now present Early repolarization now present Sinus rhythm no longer present Electronically Signed On 04-04-18 14:01:21 CDT by Kee Haile
[2018-04-04 14:34] VITALS: BMI 19.0
--- NOTE | 2018-04-04 14:45 | ECHO ---
HEIGHT: 4 ft 11 in WEIGHT: 94 lb 0 oz DATE OF STUDY: 04/04/[address]: Hector Gray MD 2-DIMENSIONAL: YES M.MODE: YES DOPPLER: YES COLOR FLOW: YES TDS: YES PORTABLE: DEFINITY: BUBBLE STUDY: DIAGNOSIS: SYNCOPE CARDIAC HISTORY: CATHERIZATION: NO SURGERY: NO PROSTHETIC VALVE: NO PACEMAKER: NO MEASUREMENTS (cm) DIASTOLIC (NORMALS) SYSTOLIC (NORMALS) IVSd 0.9 (0.6-1.2) LA Diam 4.0 (1.9-4.0) LVEF 60-69% LVIDd 3.5 (3.5-5.7) LVIDs 2.0 (2.0-3.5) %FS 44% LVPWd 1.0 (0.6-1.2) Ao Diam 2.4 (2.0-3.7) 2 DIMENSIONAL ASSESSMENT: RIGHT ATRIUM: NORMAL LEFT ATRIUM: DILATED RIGHT VENTRICLE: NORMAL LEFT VENTRICLE: NORMAL TRICUSPID VALVE: NORMAL MITRAL VALVE: NORMAL PULMONIC VALVE: NORMAL AORTIC VALVE: NORMAL PERICARDIAL EFFUSION: NONE AORTIC ROOT: NORMAL LEFT VENTRICULAR WALL MOTION: NORMAL DOPPLER/COLOR FLOW: NORMAL COMMENTS: NORMAL LEFT VENTRICULAR EJECTION FRACTION. DILATED LEFT ATRIUM. OTHERWISE NORMAL TWO DIMENSIONAL ECHOCARDIOGRAM WITH DOPPLER. TECHNOLOGIST: MANUELITO THOMASON
[2018-04-04] MEDS: METOPROLOL TAR 25 MG TAB PO SCH (18:00)
[2018-04-04] MEDS: ENOXAPARIN 40 MG/0.4 ML SQ SCH (18:10)
[2018-04-04] MEDS: ALPRAZOLAM 0.25 MG TABLET PO PRN ×2 (18:10→22:58)
[2018-04-04] MEDS ORDERED: LORazepam 2 MG/ML VIAL IV ONE (19:00)
[2018-04-04] MEDS ORDERED: ALPRAZOLAM 0.25 MG TABLET PO ONE (19:00)
--- NOTE | 2018-04-04 20:38 | RAD REPORT ---
EXAM DESCRIPTION: MRI - Stroke Protocol - 04/04/2018 2:08 pm CLINICAL HISTORY: presyncope CVA. COMPARISON: Head Brain Wo Cont dated 04/04/2018; C Spine Wo Con dated 04/03/2018; Head Brain Wo Cont d ated 04/03/2018; Carotid Artery Bilateral dated 04/04/2018 TECHNIQUE: MRI of brain with diffusion-weighted imaging with contrast 3D [id number] non contrast MR angiography of the [place]. 2D [id number] post contrast MR angiography of the neck vessels. Approximately 20 cc of Magnevist contrast was administered during the study. FINDINGS: No intracranial hemorrhage, hydrocephalus or extra-axial fluid collection is seen. Mild ar eas of T2/FLAIR hyperintensity in the periventricular and deep white matter is present compatible wit h chronic microvascular ischemic changes.No areas of brain edema or midline shift. No intracranial ma ss lesion. Diffusion-weighted imaging is negative for acute CVA. The midline structures are normally formed. Post-contrast imaging through the brain shows no abnormal enhancement to suggest tumor or infection. Mastoid air cells and paranasal sinuses are clear. MR angiography of the [place] shows no aneurysm, flow-limiting stenosis or vascular malforma tion. MR angiography of the neck vessels shows moderate stenosis estimated at 70% is noted involving the le ft carotid bulb. Moderate stenosis estimated at 50% is noted involving the mid right common carotid a rtery. Antegrade flow seen in both vertebral arteries. IMPRESSION: Negative for acute CVA or other acute intracranial process. No significant flow abnormality of the [place]. Moderate stenosis involving the left carotid bulb estimated at 70%. Moderate stenosis involving the mid right common carotid artery estimated at 50%.
[2018-04-04] MEDS: ARFORMOTEROL TARTRATE 15 MCG/2 ML VIAL.NEB NEB SCH (20:54)
[2018-04-04] MEDS ORDERED: ATORVASTATIN 40 MG TAB PO SCH (21:00)
[2018-04-04 21:12] LABS: CKMB Creatine Kinase MB 5.9 ng/mL (0.3-3.6)
--- NOTE | 2018-04-04 22:35 | CON ---
History Of Present Illness: Mrs. Richardson is 72. She has fallen twice, once she fell while getting into bed. She suddenly lost her balance, stumbled into the wall. There was no loss of consciousnes s. She came to the ER, went home, came back today at the insistence of family members. She fell one other time. She was cooking in the kitchen, decided to sit down, reached for something to help stea dy herself while she was sitting and it was an oven door that opened, so she fell to the floor. Mrs. Richardson has had a cardiac cath that revealed mild CAD. No stents have been done there. She has h ad severe cerebrovascular disease and in 2014, underwent a right carotid endarterectomy. I believe s he has had some procedures done on leg arteries as well. Less certain about that. I have to check o ld records that are not available at the present time. 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 She is not having chest pain or shortness of breath. She has not had syncope. She has fallen twic e since she has been here in the hospital. Her carotid Doppler reveals a 70% stenosis. It is comple tely unchanged from a carotid Doppler that was done in 2016, about a year after her right carotid end arterectomy. The left carotid is believed to be 50-70% stenosed. She was a cigarette smoker, quit i n 2014. Does not have diabetes. Home Medications: Amitiza, atenolol, baclofen, clonidine, Norvasc, Restoril, simvastatin, Symbicort, Xanax. Past Medical History: Significant for cholecystectomy, right carotid endarterectomy, peripheral vasc ular disease, cerebral vascular disease, anxiety, chronic pain, alcoholism, COPD, depression, and hyp ertension. Physical Examination: Vital Signs: 4 feet 11, 94 pounds. General: Irritable, angry. HEENT: Unremarkable. Neck: There is no carotid bruit. Lungs: No vesicular breath sounds, it is all bronchial. She appears to have severe COPD. Heart: Reveals a regular rate and rhythm. No significant murmur. Abdomen: Soft. Extremities: Reveal diminished, but palpable distal pulses. Diagnostic Studies: Her electrocardiogram shows sinus tachycardia, left ventricular hypertrophy. Impression: Ms. Richardson has cerebral vascular disease that is fairly severe, but stable over time. I do not think it has anything to do with symptoms she is having. An MRI is proposed. I think per haps Dr. Velez or I can visit with her after that has been done. We will get another view of what the carotid looks like, see what we think might be ideal, see what the patient would consent to. I g ot the idea she would probably not consent to have another carotid endarterectomy. Thank you very much for your kind referral of Ms. Richardson. I will follow her with you. GABI/JAMILA Voice ID: [id number] Report ID: [id number]
--- NOTE | 2018-04-05 00:47 | CON ---
Reason For Consultation: Fall and syncope. History Of Present Illness: Ms. Richardson is a 72-year-old patient with medical problems including h ypertension, chronic obstructive pulmonary disease, coronary artery disease, dyslipidemia, who was at home. She said when she got out of bed and walked several steps, then fell. She denied loss of con sciousness. She denied shortness of breath, chest pain, anything preceding the fall, but she did say at times her blood pressure would be low, counting pressure systolic in the 60s at times. After thi s fall, she did not have an immediate blood pressure check but came to [facility]. Review o f the chart indicates that she was actually in the hospital over the weekend for a fall and declined to come into the hospital. Then, she went back home and fell again. It is unclear which fall she de scribed, but the last fall was most likely the reason that precipitated her to come to the hospital d irectly. Her head CT scan showed no acute ischemic or hemorrhagic change; however, the study was rem arkable for a mild amount of generalized brain atrophy. There was no cerebral edema, no chronic isch emic stroke or hemorrhagic stroke. Her complete blood count with differential is essentially unremar kable. Coagulation panel again was essentially unremarkable. Her basic metabolic panel showed a mil dly elevated chloride, but was otherwise normal. Creatinine normal at 0.6. Her liver function studi es are remarkable for slightly elevated alkaline phosphatase of 134. Urinalysis is unremarkable and toxicology screen was positive for benzodiazepines. She is said that since the fall and being in the hospital, she denies any additional sensation, syncope, or near syncopal episodes. Past Medical History: COPD, hypertension, osteoporosis, depression, anxiety, coronary artery disease , insomnia, dyslipidemia. Surgical History: Cataract surgery in the right eye, carotid endarterectomy, cholecystectomy, multip le C-sections, tonsillectomy. Allergies: ADHESIVE TAPE, CODEINE, BENADRYL, PENICILLIN, ERYTHROMYCIN. Home Medications: Xanax 0.5 mg twice daily as needed, Norvasc 5 mg daily, atenolol 50 mg daily, bacl ofen 10 mg twice daily, Tessalon Perles 100 mg 3 times daily, Lumigan 1 drop in each eye at bedtime, formoterol fumarate (Symbicort) 2 puffs twice daily, Restasis 1 drop in each eye twice daily, Silenor for sleep 6 mg at bedtime, Lexapro 200 mg daily, Mucinex 600 mg twice daily, hydrocodone and acetami nophen 3 times daily, albuterol nebulizer (Combivent) 2 puffs daily, simvastatin 20 mg at bedtime, Sp iriva inhaler 18 mcg daily, Catapres 0.1 mg daily as needed, prednisone 10 mg daily. Family History: Positive for heart disease and lung disease in father and mother with transient isch emic attack. Social History: Smoked in the past and drinks alcohol as well and drinks caffeinated beverages. She is , with 2 children. Lives with her sister. Review of Systems: She does report at times getting transiently dizzy after standing and walking several feet and she pa sses blood pressures as indicated previously, may be low with systolics in the 60s at times. Otherwi se, denies any recent fevers or chills. She has a mild cough which is nonproductive, occasional shor tness of breath, and she takes oxygen at home, but denies any cyanosis, edema, or clubbing in the ext remities. Denies any prior stroke, gastrointestinal issues, or genitourinary issues. Physical Examination: Vital Signs: Blood pressure ranged from 108 systolic to 179 systolic over 66 to 89 diastolic, heart rate ranged from 103 to 110, respiratory rate 12 to 20, and temperature 98.9, oxygen saturation 91-97 % on 2 L nasal cannula. Weight 94 pounds, height 4 feet 11 inches, BMI 19. General: Ms. Richardson is sitting at the side of bed, comfortably in no acute distress. HEENT: She is normocephalic, atraumatic. Sclerae anicteric. Oropharynx is pink and moist. Neck: Supple. Chest: Clear. Heart: Regular. Extremities: Show no significant edema or cyanosis. Neurological: She is alert and oriented to person, place, time, and situation. Follows all commands appropriately. Cranial nerves 2 through 12 are intact by exam. Motor examination, she has full str ength in the arms and legs proximally and distally at 5/5. Sensory exam shows stocking-glove loss to light touch temperature in the arms and legs. Reflexes are trace at the patellae, 0 at the heels an d 0 at the biceps, triceps, and brachioradialis. Coordination intact, although slightly slow rapid a lternating movements. Gait; she has had good stance and stride. She will be ambulated further with her gait belt. Assessment: Ms. Richardson is a 72-year-old patient with likely cardiovascular related syncope relate d to low blood pressure, syncope, and near syncope. Likely, she has had transient ischemic attack or a stroke, also unlikely that she has had a central nervous system event such as seizure as a possibl e etiology. Plan: 1.She should continue all medications for comorbid conditions including hypertension, dyslipidemia, and should carefully monitor blood pressures and was recommended orthostatics to be done. 2.We will follow up the patient's brain MRI that is pending. 3.She has actually had an echocardiogram study that showed 60-69% ejection fraction, which is essent ially a normal study. Her carotid Doppler study also done shows hemodynamically moderate stenosis is present in the right common carotid artery and the left suspected to have 50-70% stenosis. It is re commended that the magnetic resonance angiogram of the neck be obtained. 4.The patient should then have a brain MRI with MRA of the head and neck. 5.She should be ambulated with physical therapy and determine the need for possibly outpatient physi maxx and occupational therapy. She will be followed once the pending studies are complete. LELE Voice ID: [id number] Report ID: [id number]
[2018-04-05] MEDS ORDERED: TEMAZEPAM 15 MG CAP PO ONE (01:20)
[2018-04-05 03:29] LABS: Absolute Lymphocytes (CBC) 1.4 K/uL (0.7-4.9); Absolute Monocytes 1.1 K/uL (0.1-1.3); Absolute Neutrophil 4.3 K/uL (1.8-8.0); Basophils % 0.8 % (0-1.3); Eosinophils % 4.1 % (0-4.4); Hematocrit 39.5 % (36.0-45.0); Lymphocytes % 19.3 % (15.3-44.8); MCH 33.5 pg (27.0-35.0); MCV 98.6 fL (80-100); MPV 7.6 fL (7.6-11.3); RBC Red Blood Cell Count 4.01 M/uL (3.86-4.86)
[2018-04-05 03:36] LABS: BUN Blood Urea Nitrogen 8 mg/dL (7-18); Bicarbonate 28 mmol/L (21-32); Glucose Level 92 mg/dL (74-106); HDL Cholesterol 68 mg/dL (40-60); LDL Cholesterol, Calculated 70 (<130); Magnesium 1.7 mg/dL (1.8-2.4); Potassium 3.4 mmol/L (3.5-5.1); Sodium Level 138 mmol/L (136-145)
[2018-04-05] MEDS: METOPROLOL TAR 25 MG TAB PO SCH (05:14)
[2018-04-05] MEDS ORDERED: POTASSIUM 25 MEQ EFFERV TAB PO ONE (05:30)
[2018-04-05] MEDS ORDERED: MAGNESIUM SULFATE 1 gm IVPB 1 GM/100 ML BAG IV ONE (06:00)
[2018-04-05] MEDS ORDERED: PANTOPRAZOLE 40MG TABLET PO SCH (06:30)
[2018-04-05] MEDS: ARFORMOTEROL TARTRATE 15 MCG/2 ML VIAL.NEB NEB SCH (07:54)
[2018-04-05] MEDS ORDERED: AMLODIPINE 5 MG TAB PO SCH (09:00)
[2018-04-05] MEDS ORDERED: ASPIRIN EC 81 MG TAB PO SCH (09:00)
[2018-04-05] MEDS: HYDRALAZINE HCL 20 MG/ML VIAL IV PRN ×2 (09:06→15:06)
[2018-04-05] MEDS: NA CHLORIDE 0.9% 1,000 ML IV SCH (10:00)
[2018-04-05 10:25] VITALS: O2SAT 91
[2018-04-05] MEDS ORDERED: ALPRAZOLAM 0.5 MG TABLET PO SCH (14:00)
[2018-04-05] MEDS ORDERED: HOME MED 1 EA UNK (Simvastatin [Simvastatin] 20 MG) PO SCH (14:00)
[2018-04-05] MEDS ORDERED: HOME MED 1 EA UNK (Pregabalin [Lyrica] 100 MG) PO SCH (14:00)
[2018-04-05] MEDS ORDERED: ATENOLOL 25 MG TAB PO SCH ×2 (14:00→15:00)
[2018-04-05] MEDS ORDERED: PREGABALIN 50 MG CAP PO SCH ×2 (15:00→21:00)
[2018-04-05] MEDS: ENOXAPARIN 40 MG/0.4 ML SQ SCH (17:00)
[2018-04-05 17:14] VITALS: BP 144/66; TEMP 98.3
--- NOTE | 2018-04-05 18:00 | P.SSS ---
Patient History Date of Service: 04/05/18 Primary Care Provider: Dr. Tran; Cardiology-Dr. Velez Reason for admission: Presyncope, fall History of Present Illness: 72-year-old female presented emergency room with presyncope and fall. Patient was actually seen over the week and in the emergency room for a fall. She apparently lost her balance and fell to the ground. She denied any significant dizziness, headaches, chest pain or shortness of breath. The patient was evaluated in ER and was to be admitted but the patient declined. Today she had fell again. She came into emergency room for further evaluation. Denied any chest pain, headaches, dizziness, or shortness of breath. Patient has history of hypertension, COPD, Raynaud syndrome. In the ER patient was evaluated. Initial blood pressures were elevated at 150/ 80. Heart rate 111. Initial CT scan of the head unremarkable. Carotid Doppler showed significant moderate stenosis to the right mid common carotid artery. Stenosis at the level of the a left carotid was suspected at 50-70%. The patient was admitted for further evaluation. When I saw the patient ER, she appeared comfortable. She denied any significant problems at that time. Allergies adhesive tape Allergy (Verified 06/03/17 07:31) blisters codeine Allergy (Verified 06/03/17 07:31) Itching diphenhydramine [From Benadryl] Allergy (Verified 06/03/17 07:31) Unknown Penicillins Allergy (Verified 06/03/17 07:31) Anaphylaxis Erythromycin Allergy (Severe, Uncoded 04/04/18 14:42) Nausea/Vomiting Home Medications: Alprazolam [Xanax] 0.5 mg PO ONCE 04/05/18 Amlodipine [Norvasc*] 2.5 mg PO DAILY 04/05/18 Atenolol [Tenormin] 25 mg PO ONCE 04/05/18 Baclofen 10 mg PO ONCE 04/05/18 Clopidogrel Bisulfate [Plavix] 75 mg PO DAILY #30 tablet 04/05/18 Doxepin HCl [Silenor] 6 mg PO ONCE 04/05/18 Meloxicam 15 mg PO ONCE 04/05/18 Pregabalin [Lyrica] 100 mg PO TID 04/05/18 Simvastatin 20 mg PO ONCE 04/05/18 Triamcinolone 0.1% Oint [Kenalog 0.1% Ointment*] 1 appl BID 04/05/18 - Past Medical/Surgical History Has patient received pneumonia vaccine in the past: Yes Diabetic: No -: COPD -: HTN -: Osteoporosis -: Depression with anxiety -: Carotid arterial disease -: Insomnia -: Hyperlipidemia -: Cataracts -: Cataract sx Rt eye -: Carotid enterectomy -: Cholecystectomy -: C-sections x3 -: Tonsillectomy Psychosocial/ Personal History: She is , she has 2 children, she lives with a sister. She does not work. - Family History Father -: Heart disease, Lung disease Mother Notes: TIA's - Social History Smoking Status: Former smoker Alcohol use: Yes CD- Drugs: No Caffeine use: Yes Place of Residence: Home Review of Systems General: As per HPI Physical Examination - Vital Signs Temperature: 98.3 F Blood Pressure: 144/66 Pulse: 110 Respirations: 18 Pulse Ox (%): 94 - Physical Exam General: Alert, In no apparent distress HEENT: Atraumatic, PERRLA, Mucous membr. moist/pink, EOMI, Sclerae nonicteric Neck: Supple, 2+ carotid pulse no bruit, No LAD, Without JVD or thyroid abnormality Respiratory: Clear to auscultation bilaterally, Normal air movement Cardiovascular: Regular rate/rhythm, Normal S1 S2 Gastrointestinal: Normal bowel sounds, No tenderness Musculoskeletal: No tenderness Integumentary: No rashes Neurological: Normal gait, Normal speech, Normal strength at 5/5 x4 extr, Normal tone, Normal affect Lymphatics: No axilla or inguinal lymphadenopathy - Diagnosis (Problem(s)) (1) Fall Current Visit: No Status: Acute Qualifiers: Encounter type: initial encounter Qualified Code(s): W19.XXXA - Unspecified fall, initial encounter (2) Pre-syncope Onset Date: 04/05/18 Current Visit: Yes Status: Acute (3) Alcohol abuse Onset Date: 04/05/18 Current Visit: Yes Status: Chronic (4) Carotid artery disease Onset Date: 04/05/18 Current Visit: Yes Status: Acute Qualifiers: Carotid artery disease type: stenosis Laterality: bilateral Qualified Code(s): I65.23 - Occlusion and stenosis of bilateral carotid arteries (5) COPD (chronic obstructive pulmonary disease) Onset Date: 06/03/17 Current Visit: No Status: Chronic Qualifiers: COPD type: chronic bronchitis Chronic bronchitis type: unspecified Qualified Code(s): J42 - Unspecified chronic bronchitis (6) Coronary artery disease Onset Date: 06/03/17 Current Visit: No Status: Chronic Qualifiers: Coronary Disease-Associated Artery/Lesion type: [place] artery [place] vs. 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 Patient has multiple falls and has hit her right-sided eye. No loss of consciousness when noted. Patient had extensive workup here in the hospital with head CT which was negative for any acute abnormality and was consistent with chronic ischemic changes. MRI of the head was done which was also consistent with similar findings of the head CT. Neurology was consulted who recommended the patient get a MRI of the neck and head. MRA of the head and neck was done which showed carotid on the left side with 70% stenosis and right-sided carotid with 50% stenosis. Cardiology was consulted who recommended medical therapy for left-sided carotid stenosis. Patient agreed to the plan and thus was discharged home under stable condition after working with physical therapy and resolution of her symptoms. Patient no longer was weak and was able to ambulate 250 feet with minimal assistance around the hospital. Patient was then discharged home under stable condition was asked to follow up with primary care provider and Cardiology in about 1-2 weeks post discharge. Patient was given medications that she was taking at home in addition to Plavix. Which was started for her left-sided carotid stenosis. - Disposition Disposition: ROUTINE DISCHARGE Condition: GOOD Diet: Regular Activity: Ad ely
[2018-04-05] MEDS ORDERED: ATORVASTATIN 10 MG TAB PO SCH (21:00)
[2018-04-06] MEDS ORDERED: AMLODIPINE 2.5 MG TAB PO SCH (09:00)
[2018-04-06] MEDS ORDERED: ALPRAZOLAM 0.5 MG TABLET PO SCH (09:00)
--- NOTE | 2018-04-06 11:36 | PN ---
Date of Progress Note: 04/05/2018 Dr. Haile had seen her on 04/04/2018, because of syncope and history of cerebrovascular disease. Sh e is status post right carotid endarterectomy in the past, has many issues including dyslipidemia, hy pertension, alcohol use, anxiety, depression, and COPD. We do not think her syncope is related to he r carotid disease. MRA showed 70% stenosis on the left ICA. We will suggest adding Plavix to her re gimen. Continue medical therapy. We will observe her carotid stenosis on a yearly basis with a andino tid Dopplers in the office as an outpatient, but she can go home whenever is okay with Dr. Teague. ISATU/JAMILA Voice ID: [id number] Report ID: [id number]
== END 2018-04-05 19:25 | disposition home or self-care (01) ==
LOC: ER 09:30 → ERHOLD 12:33 → 4TH 13:29
PROVIDERS: ADMIT Family Medicine; ATTEND Family Medicine
DX: R55 Syncope and collapse (principal); E78.5 Hyperlipidemia, unspecified; I10 Essential (primary) hypertension; F41.8 Other specified anxiety disorders; J44.9 Chronic obstructive pulmonary disease, unspecified; I65.22 Occlusion and stenosis of left carotid artery; F10.982 Alcohol use, unspecified with alcohol-induced sleep disorder; I25.10 Atherosclerotic heart disease of native coronary artery without angina pectoris; M81.0 Age-related osteoporosis without current pathological fracture; I73.00 Raynaud's syndrome without gangrene; Z88.1 Allergy status to other antibiotic agents; Z88.5 Allergy status to narcotic agent; G89.29 Other chronic pain; Z88.0 Allergy status to penicillin; Z88.8 Allergy status to other drugs, medicaments and biological substances; Z91.048 Other nonmedicinal substance allergy status; Z79.02 Long term (current) use of antithrombotics/antiplatelets; Z87.891 Personal history of nicotine dependence; W18.30XA Fall on same level, unspecified, initial encounter; Y92.009 Unspecified place in unspecified non-institutional (private) residence as the place of occurrence of the external cause
CPT/HCPCS: 36415; 70450; 70544; 70549; 70553; 71045; 80048 ×2; 80061; 80076; 80307 ×8; 80320; 80329 ×2; 81003; 82550 ×2; 82553 ×3; 83690; 83735 ×2; 83880; 84132; 84443; 84484 ×3; 85025 ×2; 85610; 85730; 93005; 93306; 93880; 97116; 97163; 97530; 99285; A9577; G0378 ×2; J0360 ×2; J1650 ×2; J2405; J3411; J3475; J7030 ×2; J7605 ×2

== ENCOUNTER 2018-05-17 16:41 | Inpatient (IN) | payer OTHER ==
[2018-05-17] MEDS ORDERED: NA CHLORIDE 0.9% 500 ML ONE (17:19)
[2018-05-17 17:20] LABS: Absolute Lymphocytes (CBC) 0.7 K/uL (0.7-4.9); Absolute Monocytes 1.1 K/uL (0.1-1.3); Absolute Neutrophil 16.5 K/uL (1.8-8.0); Basophils % 0.2 % (0-1.3); Eosinophils % 0.9 % (0-4.4); Hematocrit 43.3 % (36.0-45.0); Lymphocytes % 3.6 % (15.3-44.8); MCH 32.5 pg (27.0-35.0); MCV 98.9 fL (80-100); MPV 8.1 fL (7.6-11.3); Monocytes % 6.1 % (3.3-12.3); RBC Red Blood Cell Count 4.38 M/uL (3.86-4.86)
[2018-05-17 17:30] LABS: Protime INR 1.03
--- NOTE | 2018-05-17 17:39 | RAD REPORT ---
EXAM DESCRIPTION: CT - Head Brain Wo Cont - 05/17/2018 5:24 pm CLINICAL HISTORY: MENTAL STATUS CHANGE Drowsiness COMPARISON: Head Brain Wo Cont dated 04/04/2018; Head Brain Wo Cont dated 04/03/2018 TECHNIQUE: All CT scans are performed using dose optimization technique as appropriate and may inclu de automated exposure control or mA/KV adjustment according to patient size. FINDINGS: No intracranial hemorrhage, hydrocephalus or extra-axial fluid collection.Mild generalized brain atrophy is present with mild periventricular and deep white matter chronic microvascular ische marcella changes.No areas of brain edema or evidence of midline shift. The paranasal sinuses and mastoids are clear. The calvarium is intact. IMPRESSION: No acute intracranial abnormality.
--- NOTE | 2018-05-17 17:41 | RAD REPORT ---
EXAM DESCRIPTION: RAD - Chest Single View - 05/17/2018 5:22 pm CLINICAL HISTORY: Cough;SOB Chest pain. COMPARISON: Chest Single View dated 04/04/2018; Chest Single View dated 04/03/2018; Chest Pa And Lat ( 2 Views) dated 07/12/2017; Chest Single View dated 06/03/2017 FINDINGS: Portable technique limits examination quality. Emphysematous changes are present throughout the lungs with linear subsegmental atelectasis in the ri ght lung base. The heart is upper limit normal size. No displaced fractures. IMPRESSION: Linear subsegmental atelectasis is present in the right lung base.
[2018-05-17 17:53] LABS: ALT/SGPT 16 U/L (12-78); AST/SGOT 23 U/L (15-37); Albumin 3.6 g/dL (3.4-5.0); Alkaline Phosphatase 136 U/L (45-117); BUN Blood Urea Nitrogen 22 mg/dL (7-18); Bicarbonate 28 mmol/L (21-32); Bilirubin Direct 0.3 mg/dL (0-0.2); Bilirubin Total 0.9 mg/dL (0.2-1.0); CKMB Creatine Kinase MB 5.1 ng/mL (0.3-3.6); Creatine Phosphokinase 275 U/L (26-192); Glucose Level 102 mg/dL (74-106); Magnesium 1.8 mg/dL (1.8-2.4); NT PRO-BNP 804 pg/mL (<125); Potassium 4.3 mmol/L (3.5-5.1); Protein, Total 7.7 g/dL (6.4-8.2); Sodium Level 138 mmol/L (136-145); Troponin (Emerg Dept Use Only) < 0.02 ng/mL (0.0-0.045)
--- NOTE | 2018-05-17 18:04 | RAD REPORT ---
EXAM DESCRIPTION: CT - Stone Protocol - 05/17/2018 5:50 pm CLINICAL HISTORY: Abdominal pain. COMPARISON: 2016 TECHNIQUE: Computed axial tomography of the abdomen pelvis was obtained without oral or IV contrast. Lack of IV and oral contrast limits evaluation of solid organs, bowel, and vessels. Coronal reformat arianna images were obtained and reviewed. All CT scans are performed using dose optimization technique as appropriate and may include automated exposure control or mA/KV adjustment according to patient size. FINDINGS: A renal calculus is not seen. An ureteral calculus is not noted. A bladder calculus is not present. Extrarenal pelves are present bilaterally The gallbladder has been removed. There is considerable dilatation of intra and extrahepatic biliary tree. Small densities are suspected within the common bile duct. Spleen and adrenals appear grossly normal. The pancreatic duct is not dilated. There is no evidence of diverticulitis. An umbilical hernia contains a small portion of transverse co kem. The neck measures 24 millimeters Diverticulum stems from the left aspect of the bladder. Vascular calcifications are noted IMPRESSION: Dilatation of the intra and extrahepatic biliary tree. Vague densities in the common bret e duct may represent stones. Dilatation of the pancreatic duct consistent with chronic pancreatitis
--- NOTE | 2018-05-17 18:10 | EDPHYS ---
Physician Documentation [facility] Name: Shilpa Richardson Age: 72 yrs Sex: Female : 1945 Arrival Date: 05/17/2018 Time: 16:47 Bed 4 Private MD: ED Physician Hector Gray HPI: 05/17 17:40 This 72 yrs old Female presents to ER via EMS with complaints of Altered priti Mental Status. 17:40 The patient presents with decreased mental status, decreased responsiveness. Onset: The priti symptoms/episode began/occurred today. Possible causes: unknown. Associated signs and symptoms: The patient has no apparent associated signs or symptoms. Current symptoms: In the emergency department the patient's symptoms are unchanged from the initial presentation. Patient's baseline: Neuro: alert and fully oriented. The patient has experienced similar episodes in the past, a few times. Historical: - Allergies: 16:51 Erythromycin; aa5 16:51 PENICILLINS; aa5 - Home Meds: 17:30 hydrocodone-acetaminophen 7.5-325 mg/15 mL Oral soln take one tablespoon TID [Active]; aa5 Combivent Inhl [Active]; Stiolto Respimat 2.5-2.5 mcg/actuation inhalation mist 2 puffs once daily [Active]; Restasis ophthalmic ophthalmic 1 drop 2 times per day [Active]; alprazolam 1 mg Oral tab BID [Active]; Silenor 6 mg oral tab 1 tab once daily [Active]; baclofen 10 mg Oral tab BID [Active]; meloxicam 15 mg oral tab 1 tab once daily [Active]; Lyrica 100mg Oral 2 times per day [Active]; atenolol 25 mg Oral tab once daily [Active]; amlodipine 2.5 mg tab 1 tab once daily [Active]; simvastatin 20 mg Oral tab once daily [Active]; - PMHx: 16:51 Alcoholism; Anxiety; Chronic pain; COPD; Depression; Hypertension; Carotid Blockage; aa5 - PSHx: 16:51 Cholecystectomy; aa5 - Immunization history:: Adult Immunizations unknown. - Ebola Screening: : No symptoms or risks identified at this time. - Family history:: not pertinent. - Social history:: Smoking status: unknown. ROS: 17:40 Constitutional: Negative for fever, chills, and weight loss, Eyes: Negative for injury, priti pain, redness, and discharge, ENT: Negative for injury, pain, and discharge, Neck: Negative for injury, pain, and swelling, Cardiovascular: Negative for chest pain, palpitations, and edema, Respiratory: Negative for shortness of breath, cough, wheezing, and pleuritic chest pain, Abdomen/GI: Negative for abdominal pain, nausea, vomiting, diarrhea, and constipation, Back: Negative for injury and pain, : Negative for injury, bleeding, discharge, and swelling, MS/Extremity: Negative for injury and deformity, Skin: Negative for injury, rash, and discoloration, Psych: Negative for depression, anxiety, suicide ideation, homicidal ideation, and hallucinations, Allergy/Immunology: Negative for hives, rash, and allergies, Endocrine: Negative for neck swelling, polydipsia, polyuria, polyphagia, and marked weight changes, Hematologic/Lymphatic: Negative for swollen nodes, abnormal bleeding, and unusual bruising. 17:40 Neuro: Positive for altered mental status, weakness. Exam: 17:40 Constitutional: This is a well developed, well nourished patient who is awake, alert, priti and in no acute distress. Head/Face: Normocephalic, atraumatic. Eyes: Pupils equal round and reactive to light, extra-ocular motions intact. Lids and lashes normal. Conjunctiva and sclera are non-icteric and not injected. Cornea within normal limits. Periorbital areas with no swelling, redness, or edema. Neck: Trachea midline, no thyromegaly or masses palpated, and no cervical lymphadenopathy. Supple, full range of motion without nuchal rigidity, or vertebral point tenderness. No Meningismus. Chest/axilla: Normal chest wall appearance and motion. Nontender with no deformity. No lesions are appreciated. Cardiovascular: Regular rate and rhythm with a normal S1 and S2. No gallops, murmurs, or rubs. Normal PMI, no JVD. No pulse deficits. Respiratory: Lungs have equal breath sounds bilaterally, clear to auscultation and percussion. No rales, rhonchi or wheezes noted. No increased work of breathing, no retractions or nasal flaring. Back: No spinal tenderness. No costovertebral tenderness. Full range of motion. Female : Normal external genitalia. Skin: Warm, dry with normal turgor. Normal color with no rashes, no lesions, and no evidence of cellulitis. MS/ Extremity: Pulses equal, no cyanosis. Neurovascular intact. Full, normal range of motion. Psych: Awake, alert, with orientation to person, place and time. Behavior, mood, and affect are within normal limits. 17:40 ENT: Mouth: Oral mucosa: dry, Gums: normal with healthy appearance, Tongue: is normal, Posterior pharynx: is normal, airway is patent. 18:02 Neck: ROM/movement: is normal, no acute changes, Meningeal signs: are not present, [facility] Kernig's sign is negative, Brudzinski's sign is negative, nuchal rigidity, is not appreciated, is present. Vital Signs: 16:48 BP 131 / 68; Pulse 89; Resp 12 S; Temp 98.6(O); Pulse Ox 98% on 6 lpm NC; Pain 8/10; aa5 17:00 BP 93 / 60; Pulse 86; Resp 10 S; Pulse Ox 95% on 2 lpm NC; aa5 17:10 BP 94 / 57; Pulse 85; Resp 12 S; Pulse Ox 96% on 2 lpm NC; aa5 17:35 BP 129 / 72; Pulse 84; Resp 12 S; Pulse Ox 96% on 2 lpm NC; aa5 18:00 BP 123 / 63; Pulse 85; Resp 10 S; Pulse Ox 97% on 2 lpm NC; aa5 18:33 Weight 42 kg (R); aa5 18:33 BP 114 / 67; Pulse 85; Resp 12 S; Pulse Ox 96% on 2 lpm NC; aa5 19:34 BP 90 / 52; Pulse 93; Resp 7; Pulse Ox 98% on Nebulizer Mask; jb4 20:14 BP 132 / 65; Pulse 99; Resp 12; Pulse Ox 97% on 3 lpm NC; jb4 21:15 BP 118 / 62; Pulse 90; Resp 10; Pulse Ox 94% on 3 lpm NC; lp1 22:16 BP 114 / 79; Pulse 89; Resp 11; Pulse Ox 96% on 3 lpm NC; lp1 MDM: 17:03 Patient medically screened. [facility] 17:44 Data reviewed: vital signs, nurses notes, lab test result(s), EKG, radiologic studies, [facility] CT scan, plain films. 05/17 17:05 Order name: Basic Metabolic Panel [facility] 05/17 17:05 Order name: CBC with Diff; Complete Time: 18:15 [facility] 05/17 17:05 Order name: Ckmb [facility] 05/17 17:05 Order name: CPK [facility] 05/17 17:05 Order name: LFT's [facility] 05/17 17:05 Order name: Magnesium [facility] 05/17 17:05 Order name: NT PRO-BNP [facility] 05/17 17:05 Order name: PT-INR; Complete Time: 17:59 [facility] 05/17 17:05 Order name: Ptt, Activated; Complete Time: 17:59 [facility] 05/17 17:05 Order name: Troponin (emerg Dept Use Only) [facility] 05/17 17:05 Order name: Basic Metabolic Panel [facility] 05/17 17:08 Order name: Basic Metabolic Panel [facility] 05/17 17:08 Order name: CBC with Diff [facility] 05/17 17:08 Order name: Ckmb [facility] 05/17 17:05 Order name: XRAY Chest (1 view); Complete Time: 17:59 [facility] 05/17 17:08 Order name: CPK [facility] 05/17 17:08 Order name: LFT's [facility] 05/17 17:08 Order name: Magnesium [facility] 05/17 17:08 Order name: NT PRO-BNP [facility] 05/17 17:08 Order name: PT-INR [facility] 05/17 17:08 Order name: Ptt, Activated [facility] 05/17 17:08 Order name: Troponin (emerg Dept Use Only) [facility] 05/17 17:08 Order name: Urine Culture [facility] 05/17 17:27 Order name: CBC Smear Scan; Complete Time: 18:15 [facility] 05/17 18:02 Order name: Blood Culture Adult (2) [facility] 05/17 18:34 Order name: Lipase [facility] 05/17 17:05 Order name: Cardiac monitoring; Complete Time: 17:05 [facility] 05/17 17:05 Order name: EKG - Nurse/Tech; Complete Time: 17:46 [facility] 05/17 17:05 Order name: IV Saline Lock; Complete Time: 17:06 [facility] 05/17 17:05 Order name: O2 Per Protocol; Complete Time: 17:06 [facility] 05/17 17:05 Order name: O2 Sat Monitoring; Complete Time: 17:06 [facility] 05/17 17:08 Order name: EKG; Complete Time: 17:09 [facility] 05/17 17:08 Order name: Labs collected and sent; Complete Time: 17:10 [facility] 05/17 17:08 Order name: CT Head Brain wo Cont; Complete Time: 17:59 [facility] 05/17 17:39 Order name: CT Stone Protocol; Complete Time: 18:14 [facility] 05/17 18:36 Order name: Cholangiogram EDMS Administered Medications: 17:11 Drug: NS 0.9% 500 ml Route: IV; Rate: bolus; Site: right antecubital; aa5 18:45 Drug: Albuterol - atroVENT (3:1) (2.5 mg - 0.5 mg) 3 ml Route: Nebulizer; aa5 19:15 Follow up: Response: No adverse reaction jb4 18:48 Drug: SOLU-Medrol 2 mg/kg Route: IVP; Site: right antecubital; aa5 19:20 Follow up: Response: No adverse reaction jb4 18:50 Drug: Thiamine 100 mg Route: IV; Rate: bolus; Site: right antecubital; aa5 18:50 Drug: NS 0.9% 1000 ml Route: IV; Rate: 125 ml/hr; Site: right antecubital; aa5 22:15 Follow up: IV Status: Infusion continued upon admission lp1 19:01 Drug: Rocephin - (cefTRIAXone) 1 grams {Note: administered IVP over [address] [facility] pharmacy protocol at this time. .} Route: IVPB; Infused Over: 30 mins; Site: right antecubital; 19:42 Follow up: Response: No adverse reaction; IV Status: Completed infusion; IV Intake: jb4 10ml ; Given IVP per pharmacy protocol. 19:14 Drug: levofloxacin 500 mg Volume: 100 ml; Route: IVPB; Infused Over: 60 mins; Site: [facility] right antecubital; 20:15 Follow up: IV Status: Completed infusion; IV Intake: 100ml lp1 Disposition: 05/17/18 18:08 Hospitalization ordered by Rashmi Walter for Inpatient Admission. Preliminary diagnosis are Altered mental status, unspecified, Chronic obstructive pulmonary disease with (acute) exacerbation, Hypoxemia, Elevated white blood cell count. - Bed requested for Telemetry/MedSurg (Inpatient). - Status is Inpatient Admission. lp1 - Condition is Fair. - Problem is new. - Symptoms have improved. UTI on Admission? No Signatures: Dispatcher [employer] [facility] Hector Gray MD MD cha Solis, Maria ms PierceTabitha, RN RN aa5 Tanisha Anne RN RN lp1 Francisco Rosen RN jb4 Corrections: (The following items were deleted from the chart) 17:10 17:08 Cardiac monitoring ordered. [place] [id number] 17:10 17:08 EKG - Nurse/Tech ordered. [place] [id number] 17:10 17:08 IV Saline Lock ordered. [place] [id number] 17:11 17:08 Oxygen Per Protocol ordered. [place] [id number] 17:11 17:08 O2 Sat Monitoring ordered. [place] [id number] 17:11 17:08 Urine Dipstick-Ancillary ordered. [place] [id number] 17:11 17:09 Chest Single View+RAD.RAD.BRZ ordered. [facility] 17:12 17:05 Labs collected and sent ordered. [place] [id number] 17:59 17:45 ABG Arterial Blood Gas ordered. [facility] 18:11 18:08 Hospitalization Ordered by Toma Kaba MD for Inpatient Admission. Preliminary [facility] diagnosis is Altered mental status, unspecified; Chronic obstructive pulmonary disease with (acute) exacerbation; Hypoxemia. Bed requested for Telemetry/MedSurg (Inpatient). Status is Inpatient Admission. Condition is Fair. Problem is new. Symptoms have improved. UTI on Admission? No. [facility] 18:29 18:11 05/17/2018 18:08 Hospitalization Ordered by Toma Kaba MD for Inpatient priti Admission. Preliminary diagnosis is Altered mental status, unspecified; Chronic obstructive pulmonary disease with (acute) exacerbation; Hypoxemia; Elevated white blood cell count. Bed requested for Telemetry/MedSurg (Inpatient). Status is Inpatient Admission. Condition is Fair. Problem is new. Symptoms have improved. UTI on Admission? No. priti 18:32 17:09 LIPASE+C.LAB.BRZ ordered. [facility] 18:57 18:34 ERCP-Pancreatic System ordered. [facility] 20:57 18:29 05/17/2018 18:08 Hospitalization Ordered by Rashmi Walter MD for Inpatient ms Admission. Preliminary diagnosis is Altered mental status, unspecified; Chronic obstructive pulmonary disease with (acute) exacerbation; Hypoxemia; Elevated white blood cell count. Bed requested for Telemetry/MedSurg (Inpatient). Status is Inpatient Admission. Condition is Fair. Problem is new. Symptoms have improved. UTI on Admission? No. priti 22:28 20:57 05/17/2018 18:08 Hospitalization Ordered by Rashmi Walter MD for Inpatient lp1 Admission. Preliminary diagnosis is Altered mental status, unspecified; Chronic obstructive pulmonary disease with (acute) exacerbation; Hypoxemia; Elevated white blood cell count. Bed requested for Telemetry/MedSurg (Inpatient). Status is Inpatient Admission. Condition is Fair. Problem is new. Symptoms have improved. UTI on Admission? No. ms
--- NOTE | 2018-05-17 18:10 | ER ---
Nurse's Notes [facility] Name: Shilpa Richardson Age: 72 yrs Sex: Female : 1945 Arrival Date: 05/17/2018 Time: 16:47 Bed 4 Private MD: Diagnosis: Altered mental status, unspecified;Chronic obstructive pulmonary disease with (acute) exacerbation;Hypoxemia;Elevated white blood cell count Presentation: 05/17 16:50 Presenting complaint: EMS states: family reported drowsiness x 1 month ago, O2 sat 69% aa5 RA upon scene arrival with no cyanosis noted or increased work of breathing. EMS reports O2 sat increased to 97% 6 L NC, EMS reports pt was A \\T\\ O x 4 upon scene arrival. Pt currently A \\T\\ O x 4 but drowsy, easy to arouse to verbal stimuli. 16:50 Transition of care: patient was not received from another setting of care. Onset of aa5 symptoms was 2017. Risk Assessment: Do you want to hurt yourself or someone else? Patient reports no desire to harm self or others. Initial Sepsis Screen: Does the patient meet any 2 criteria? No. Patient's initial sepsis screen is negative. Does the patient have a suspected source of infection? No. Patient's initial sepsis screen is negative. Care prior to arrival: Glucose check: 148 Oxygen administered. via nasal cannula. 16:50 Method Of Arrival: EMS: [facility] aa5 16:50 Acuity: PATRICIA 3 aa5 Historical: - Allergies: 16:51 Erythromycin; aa5 16:51 PENICILLINS; aa5 - Home Meds: 17:30 hydrocodone-acetaminophen 7.5-325 mg/15 mL Oral soln take one tablespoon TID [Active]; aa5 Combivent Inhl [Active]; Stiolto Respimat 2.5-2.5 mcg/actuation inhalation mist 2 puffs once daily [Active]; Restasis ophthalmic ophthalmic 1 drop 2 times per day [Active]; alprazolam 1 mg Oral tab BID [Active]; Silenor 6 mg oral tab 1 tab once daily [Active]; baclofen 10 mg Oral tab BID [Active]; meloxicam 15 mg oral tab 1 tab once daily [Active]; Lyrica 100mg Oral 2 times per day [Active]; atenolol 25 mg Oral tab once daily [Active]; amlodipine 2.5 mg tab 1 tab once daily [Active]; simvastatin 20 mg Oral tab once daily [Active]; - PMHx: 16:51 Alcoholism; Anxiety; Chronic pain; COPD; Depression; Hypertension; Carotid Blockage; aa5 - PSHx: 16:51 Cholecystectomy; aa5 - Immunization history:: Adult Immunizations unknown. - Ebola Screening: : No symptoms or risks identified at this time. - Family history:: not pertinent. - Social history:: Smoking status: unknown. Screenin:55 Abuse screen: Denies threats or abuse. Nutritional screening: No deficits noted. aa5 Tuberculosis screening: No symptoms or risk factors identified. 17:10 Fall Risk Fall in past 12 months (25 points). IV access (20 points). Mental Status- aa5 Overestimates/Forgets Limitations (15 pts.). Total Solorzano Fall Scale indicates High Risk Score (45 or more points). Fall prevention measures have been instituted. Side Rails Up X 2 Placed Close to Nursing Station. Assessment: 16:50 General: Appears comfortable, Behavior is calm, cooperative. Pain: Complains of pain in aa5 whole body Pain does not radiate. Pain currently is 8 out of 10 on a pain scale. Quality of pain is described as aching, Pain began Pt reports pain is chronic Is continuous. Neuro: Level of Consciousness is awake, alert, obeys commands, drowsy . 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 Speech is normal, Facial symmetry appears normal, Pupils are PERRLA. Cardiovascular: Heart tones S1 S2 present Rhythm is regular. Respiratory: Reports mild SOB and dry cough x 1 week ago Airway is patent Respiratory effort is even, unlabored, shallow, Respiratory pattern is regular, symmetrical, Breath sounds with rales bilaterally. GI: Abdomen is round Bowel sounds present X 4 quads. Abd is soft and non tender X 4 quads. : No signs and/or symptoms were reported regarding the genitourinary system. EENT: No signs and/or symptoms were reported regarding the EENT system. Derm: Skin is pink, warm \\T\\ dry. Musculoskeletal: Range of motion: intact in all extremities. 17:30 Reassessment: Pt resting with eyes closed, pt easy to arouse to verbal stimuli. aa5 Respirations even and unlabored, skin is pink/warm/dry. . Cardiovascular: Rhythm is sinus rhythm. 18:30 Reassessment: Pt resting in bed with eyes closed, respirations remain shallow and aa5 unlabored, skin is pink/warm/dry. Pt easy to arouse to verbal stimuli. Awaiting room assignment, pt notified of wait time. 19:00 Reassessment: Unable to insert Juarez, attempts by Irma Jimenez RN and greyson Zapata RN. was notified. 19:34 General: Appears in no apparent distress. comfortable, Behavior is calm, cooperative. jb4 Neuro: Level of Consciousness is lethargic, Pt is easy to arouse by verbal stimuli.. Oriented to person, place, time, situation. Cardiovascular: Heart tones Rhythm is sinus rhythm. Respiratory: Airway is patent Respiratory effort is even, unlabored, Respiratory pattern is symmetrical, hypoventilation Breath sounds are clear bilaterally. GI: Abdomen is flat. : No signs and/or symptoms were reported regarding the genitourinary system. EENT: No signs and/or symptoms were reported regarding the EENT system. Derm: Skin is fragile, Skin is pink, warm \\T\\ dry. Musculoskeletal: Circulation, motion, and sensation intact. 20:00 Reassessment: Patient continues to refuse to have ABG drawn, states "You are the second lp1 person to ask me and I am still going to say no, you don't know how much that hurts". 21:15 Reassessment: Patient appears in no apparent distress at this time. Patient and/or jb4 family updated on plan of care and expected duration. Pain level reassessed. Patient is alert, oriented x 3, equal unlabored respirations, skin warm/dry/pink. attempted to call report, receiving nurse unavailable at this time, instructed to wait for call back. 21:40 Reassessment: Attempted to call back to give report. instructed to wait for return call.jb4 21:55 Reassessment: Patient difficult to arouse with verbal stimuli to go for MRI, after lp1 patient awakened, states "I can't go into that machine without some Xanax"; Patient educated on current drowsiness, refuses to have MRI at this time. Vital Signs: 16:48 BP 131 / 68; Pulse 89; Resp 12 S; Temp 98.6(O); Pulse Ox 98% on 6 lpm NC; Pain 8/10; aa5 17:00 BP 93 / 60; Pulse 86; Resp 10 S; Pulse Ox 95% on 2 lpm NC; aa5 17:10 BP 94 / 57; Pulse 85; Resp 12 S; Pulse Ox 96% on 2 lpm NC; aa5 17:35 BP 129 / 72; Pulse 84; Resp 12 S; Pulse Ox 96% on 2 lpm NC; aa5 18:00 BP 123 / 63; Pulse 85; Resp 10 S; Pulse Ox 97% on 2 lpm NC; aa5 18:33 Weight 42 kg (R); aa5 18:33 BP 114 / 67; Pulse 85; Resp 12 S; Pulse Ox 96% on 2 lpm NC; aa5 19:34 BP 90 / 52; Pulse 93; Resp 7; Pulse Ox 98% on Nebulizer Mask; jb4 20:14 BP 132 / 65; Pulse 99; Resp 12; Pulse Ox 97% on 3 lpm NC; jb4 21:15 BP 118 / 62; Pulse 90; Resp 10; Pulse Ox 94% on 3 lpm NC; lp1 22:16 BP 114 / 79; Pulse 89; Resp 11; Pulse Ox 96% on 3 lpm NC; lp1 ED Course: 16:47 Patient arrived in ED. aa5 16:48 Arm band placed on. aa5 16:48 Patient has correct armband on for positive identification. Placed in gown. Bed in low aa5 position. Call light in reach. Side rails up X2. monitor technician on. Pulse ox on. NIBP on. 16:54 Triage completed. aa5 16:54 Tabitha Pierce, RN is Primary Nurse. aa5 16:55 Initial lab(s) drawn, by mo, sent to lab. Inserted saline lock: 20 gauge in right em antecubital area, using aseptic technique. Blood collected. 17:03 Hector Gray MD is Attending Physician. priti 17:[address] via stretcher. jg6 17:20 X-ray completed. Portable x-ray completed in exam room. Patient tolerated procedure az well. 17:22 XRAY Chest (1 view) In Process Unspecified. EDMS 17:23 CT completed. Patient tolerated procedure well. Patient moved back from CT. vm2 17:24 CT Head Brain wo Cont In Process Unspecified. EDMS 17:[address] via stretcher. jg6 17:50 CT Stone Protocol In Process Unspecified. EDMS 18:07 Toma Kaba MD is Hospitalizing Provider. priti 18:29 Rashmi Walter MD is Hospitalizing Provider. priti 19:02 Report given to Sandie RN and Tanisha RN. aa5 19:21 juarez missed attempt x2. sg 22:09 No provider procedures requiring assistance completed. Patient admitted, IV remains in lp1 place. Administered Medications: 17:11 Drug: NS 0.9% 500 ml Route: IV; Rate: bolus; Site: right antecubital; aa5 18:45 Drug: Albuterol - atroVENT (3:1) (2.5 mg - 0.5 mg) 3 ml Route: Nebulizer; aa5 19:15 Follow up: Response: No adverse reaction jb4 18:48 Drug: SOLU-Medrol 2 mg/kg Route: IVP; Site: right antecubital; aa5 19:20 Follow up: Response: No adverse reaction jb4 18:50 Drug: Thiamine 100 mg Route: IV; Rate: bolus; Site: right antecubital; aa5 18:50 Drug: NS 0.9% 1000 ml Route: IV; Rate: 125 ml/hr; Site: right antecubital; aa5 22:15 Follow up: IV Status: Infusion continued upon admission lp1 19:01 Drug: Rocephin - (cefTRIAXone) 1 grams {Note: administered IVP over 2 mintes per aa5 pharmacy protocol at this time. .} Route: IVPB; Infused Over: 30 mins; Site: right antecubital; 19:42 Follow up: Response: No adverse reaction; IV Status: Completed infusion; IV Intake: jb4 10ml ; Given IVP per pharmacy protocol. 19:14 Drug: levofloxacin 500 mg Volume: 100 ml; Route: IVPB; Infused Over: 60 mins; Site: aa5 right antecubital; 20:15 Follow up: IV Status: Completed infusion; IV Intake: 100ml lp1 Intake: 19:42 IV: 10ml; Total: 10ml. jb4 20:15 IV: 100ml; Total: 110ml. lp1 Outcome: 18:08 Decision to Hospitalize by Provider. priti 22:13 Admitted to Med/surg via stretcher, room 219, with oxygen, with chart, Report called to lp1 Deanna Madrigal RN 22:13 Condition: stable 22:13 Instructed on the need for admit. 22:28 Patient left the ED. lp1 Signatures: Dispatcher [employer] Saul Sevilla, RN RN Hector Gomez MD MD cha Munoz, Vin, SEMICONDUCTOR WAFERS SAW OPERATOR SEMICONDUCTOR WAFERS SAW OPERATOR Tabitha Pugh RN RN aa5 Tanisha Anne RN RN lp1 Francisco Rosen RN RN jb4 McGuire, [facility] Kelsey Boggs Jessica jg6 Corrections: (The following items were deleted from the chart) 17:50 17:30 Reassessment: Pt resting with eyes closed, pt easy to arouse to verbal stimuli. aa5 Respirations even and unlabored, skin is pink/warm/dry. . aa5
[2018-05-17 18:14] LABS: Blood Morphology Comment NOT SEEN (NOT SEEN); Platelet Estimate ADEQ; Urine White Blood Cell Casts OK
[2018-05-17 18:39] LABS: Lipase 100 U/L (73-393)
[2018-05-17] MEDS ORDERED: ALBUTEROL 2.5 MG/3 ML NEB SOL ONE ×2 (18:44→20:45)
[2018-05-17] MEDS ORDERED: IPRATROPIUM BROM 0.5MG/2.5ML ONE ×2 (18:45→20:46)
[2018-05-17] MEDS ORDERED: THIAMINE 200 MG/2 ML INJ ONE (18:45)
[2018-05-17] MEDS ORDERED: Levofloxacin500mg IV 500 MG/100 ML BAG IV ONE (18:45)
[2018-05-17] MEDS ORDERED: CEFTRIAXONE/SWI 1gm 1 GM/10 ML SYR ONE (18:45)
[2018-05-17] MEDS ORDERED: NA CHLORIDE 0.9% 1,000 ML ONE (18:45)
[2018-05-17] MEDS: IPRATROPIUM BROM 0.5MG/2.5ML NEB SCH (20:00)
[2018-05-17] MEDS ORDERED: Levofloxacin500mg IV 500 MG/100 ML BAG IV SCH (20:00)
[2018-05-17] MEDS: ALBUTEROL 2.5 MG/3 ML NEB SOL NEB SCH (20:00)
[2018-05-17 23:43] VITALS: BMI 17.4
[2018-05-18] MEDS: NA CHLORIDE 0.9% 1,000 ML IV SCH (00:02)
[2018-05-18] MEDS: METHYLPREDNISOLONE 40 MG INJ IV SCH ×4 (00:03→18:49)
[2018-05-18] MEDS ORDERED: Levofloxacin 250mg IV 250 MG/50 ML BAG IV SCH (01:00)
[2018-05-18] MEDS: ALBUTEROL 2.5 MG/3 ML NEB SOL NEB SCH ×4 (03:00→20:09)
[2018-05-18] MEDS: IPRATROPIUM BROM 0.5MG/2.5ML NEB SCH ×4 (03:00→20:09)
[2018-05-18 04:53] LABS: Absolute Lymphocytes (CBC) 0.5 K/uL (0.7-4.9); Absolute Monocytes 0.1 K/uL (0.1-1.3); Absolute Neutrophil 14.4 K/uL (1.8-8.0); Basophils % 0.2 % (0-1.3); Eosinophils % 0.1 % (0-4.4); Hematocrit 38.9 % (36.0-45.0); MCV 97.6 fL (80-100); MPV 8.6 fL (7.6-11.3); Monocytes % 0.9 % (3.3-12.3); RBC Red Blood Cell Count 3.98 M/uL (3.86-4.86)
[2018-05-18 05:16] LABS: Albumin 2.9 g/dL (3.4-5.0); Bilirubin Total 0.6 mg/dL (0.2-1.0); Magnesium 1.8 mg/dL (1.8-2.4); Phosphorus 4.1 mg/dL (2.5-4.9); Potassium 4.1 mmol/L (3.5-5.1); Protein, Total 6.7 g/dL (6.4-8.2)
[2018-05-18] MEDS ORDERED: MAGNESIUM SULFATE 1 gm IVPB 1 GM/100 ML BAG IV ONE (05:21)
[2018-05-18] MEDS: ENOXAPARIN 40 MG/0.4 ML SQ SCH (09:00)
--- NOTE | 2018-05-18 09:02 | P.HP ---
Certification for Inpatient Patient admitted to: Inpatient With expected LOS: >2 Midnights Patient will require the following post-hospital care: None Practitioner: I am a practitioner with admitting privileges, knowledge of patient current condition, hospital course, and medical plan of care. Services: Services provided to patient in accordance with Admission requirements found in Title 42 Section 412.3 of the Code of Federal Regulations Patient History Date of Service: 05/17/18 Reason for admission: Shortness of breath History of Present Illness: Patient is a 72-year-old female who came into the hospital with altered mentation. Patient has not been feeling well and she was very short of breath. She was clinically getting worse so she came into the emergency room for further evaluation. In the ER she was found to be hypoxic and slightly hypercapnic. She was given O2 and respiratory treatments and her clinical symptoms have improved. However, patient does have significant COPD and would benefit from pulmonary function testing as an outpatient. She will be admitted to the hospital for further evaluation. Allergies adhesive tape Allergy (Verified 05/17/18 23:33) blisters codeine Allergy (Verified 05/17/18 23:33) Itching diphenhydramine [From Benadryl] Allergy (Verified 05/17/18 23:33) Itching Penicillins Allergy (Verified 05/17/18 23:33) Anaphylaxis Erythromycin Allergy (Severe, Uncoded 05/17/18 23:33) Nausea/Vomiting Home Medications: Alprazolam [Xanax] 1 mg PO DAILY 05/17/18 Amlodipine [Norvasc] 2.5 mg PO DAILY 05/17/18 Atenolol [Tenormin] 25 mg PO DAILY 05/17/18 Baclofen 10 mg PO BID PRN 05/17/18 Cyclosporine [Restasis] 1 drop EACH EYE BID 05/17/18 Doxepin HCl [Silenor] 6 mg PO DAILY 05/17/18 Hydrocodone/Acetaminophen [Hydrocodon-Acetamin 7.5-325/15] 15 ml PO BID PRN 07/24 Ipratropium/Albuterol Sulfate [Combivent Respimat Inhal [place]] 2 puff IH PRN 07/24 Meloxicam 15 mg PO DAILY 05/17/18 Pregabalin [Lyrica] 100 mg PO BID 05/17/18 Simvastatin 20 mg PO BEDTIME 05/17/18 Tiotropium Br/Olodaterol HCl [Stiolto Respimat Inhal [place]] 2 puff IH DAILY 07/24 - Past Medical/Surgical History Has patient received pneumonia vaccine in the past: No Diabetic: No -: COPD -: HTN -: Osteoporosis -: Depression with anxiety -: Carotid arterial disease -: Macular Degenartion -: Hyperlipidemia -: Cataracts -: Cataract sx Rt eye -: Carotid enterectomy -: Cholecystectomy -: C-sections x3 -: Tonsillectomy Psychosocial/ Personal History: She is , she has 2 children, she lives with a sister. She does not work. - Family History Father Medical History: Heart disease, Lung disease Mother Medical History: Stroke Notes: TIA's - Social History Smoking Status: Never smoker Alcohol use: Yes CD- Drugs: No Caffeine use: Yes Place of Residence: Home Review of Systems 10-point ROS is otherwise unremarkable Physical Examination - Vital Signs Temperature: 97.5 F Blood Pressure: 129/59 Pulse: 85 Respirations: 16 Pulse Ox (%): 96 - Physical Exam General: Alert, In no apparent distress, Oriented x3 HEENT: Atraumatic, Normocephalic, PERRLA Neck: Supple Respiratory: Diminished, Expiratory wheezes Cardiovascular: No edema, Normal pulses, Regular rate/rhythm, Normal S1 S2, No murmurs Gastrointestinal: Normal bowel sounds, Hypoactive, Soft and benign, Non- distended Musculoskeletal: No clubbing, No swelling Neurological: Normal gait, Normal speech, Normal strength at 5/5 x4 extr, Normal tone, Sensation intact, Cranial nerves 3-12 intact - Studies Laboratory Data (last 24 hrs) 05/17/18 17:08: PT Cancelled, INR Cancelled, APTT Cancelled 05/17/18 17:08: WBC Cancelled, Hgb Cancelled, Hct Cancelled, Plt Count Cancelled 05/17/18 17:08: Sodium Cancelled, Potassium Cancelled, BUN Cancelled, Creatinine Cancelled, Glucose Cancelled, Magnesium Cancelled, Total Bilirubin Cancelled, AST Cancelled, ALT Cancelled, Alkaline Phosphatase Cancelled, Lipase Cancelled 05/17/18 16:55: PT 12.2, INR 1.03, APTT 38.1 H 05/17/18 16:55: WBC 18.4 H, Hgb 14.2, Hct 43.3, Plt Count 412 H 05/17/18 16:55: Sodium 138, Potassium 4.3, BUN 22 H, Creatinine 1.80 H, Glucose 102, Magnesium 1.8, Total Bilirubin 0.9, AST 23, ALT 16, Alkaline Phosphatase 136 H, Lipase 100 Assessment & Plan - Problems (Diagnosis) (1) COPD exacerbation Onset Date: 06/03/17 Current Visit: No Status: Acute (2) Contusion, back Onset Date: 07/08/16 Current Visit: No Status: Acute (3) Fall Current Visit: No Status: Acute Qualifiers: (4) Hyponatremia Onset Date: 07/08/16 Current Visit: No Status: Acute (5) Coronary artery disease Onset Date: 06/03/17 Current Visit: No Status: Chronic Qualifiers: (6) Depression with anxiety Onset Date: 06/03/17 Current Visit: No Status: Chronic (7) Hyperlipidemia Onset Date: 06/03/17 Current Visit: No Status: Chronic Qualifiers: - Plan 1. Continue with IV antibiotics 2. Continue with nebs as needed 3. Repeat chest x-ray 4. CT scan of the chest as an outpt 5. Pulmonary consultation as an outpt 6. O2 per protocol 7. Continue with gentle hydration 8. Repeat labs including CBC and renal function in a.m. 9. GI and DVT prophylaxis Discharge Plan: Home Plan to discharge in: Greater than 2 days - Advance Directives Does patient have a Living Will: Yes Does patient have a Durable POA for Healthcare: Yes - Code Status/Comfort Care Code Status Assessed: Yes Code Status: Full Code Critical Care: No Time Spent Managing PTS Care (In Minutes): 50
[2018-05-18] MEDS ORDERED: BACLOFEN 10 MG TAB PO PRN (09:45)
[2018-05-18 10:49] LABS: Urine Appearance CLEAR; Urine Bilirubin NEGATIVE (NEG); Urine Blood NEGATIVE (NEG); Urine Color YELLOW; Urine Glucose TRACE (NEG); Urine Protein NEGATIVE (NEG); Urine Specific Gravity 1.015 (1.005-1.030); Urine Urobilinogen 0.2 mg/dL (0.2-1.0); Urine pH 5.5 (5.0-7.0)
[2018-05-18 10:52] LABS: Urine Microscopic Reflex NO UMIC
--- NOTE | 2018-05-18 12:12 | EKG ---
Test Date: 2018-05-17 Test Time: 17:16:10 Wheel Truer: RASHAWN MEASUREMENT RESULTS: Intervals: Rate: 82 NH: 150 QRSD: 90 QT: 374 QTc: 436 Fisher: P: 69 NH: 150 QRS: 68 T: 71 INTERPRETIVE STATEMENTS: Normal sinus rhythm Minimal voltage criteria for LVH, may be normal variant Borderline ECG Compared to ECG 04/04/2018 09:57:58 Sinus tachycardia no longer present Early repolarization no longer present Electronically Signed On 05-18-18 12:08:57 CDT by Bill Velez
--- NOTE | 2018-05-18 12:22 | RAD REPORT ---
EXAM DESCRIPTION: RAD - Wrist Left 3 View - 05/18/2018 11:57 am CLINICAL HISTORY: left hand drop Pain COMPARISON: Wrist Left 3 View dated 05/12/2014 FINDINGS: Osteopenia is noted. Mild radiocarpal arthritic changes is seen with mild TFCC chondrocal cinosis. Soft tissue swelling is seen about the wrist. The combination of findings could indicate un derlying inflammatory arthropathy, such as CPPD.
--- NOTE | 2018-05-18 13:53 | P.PN ---
Subjective Date of Service: 05/18/18 Chief Complaint: Shortness of breath Patient seen and examined at bedside with RN. Chart reviewed. Case discussed with patient at bedside. Patient denies having any shortness of breath chest pain or any other associated symptoms. The patient does complain of having problems with her left wrist. States that she does not know if she had any trauma to the area however is unable to lift her hand up. Oxygen removed at bedside recheck pulse ox in about 30 min. Patient is currently pending for MRCP as well. Review of Systems 10-point ROS is otherwise unremarkable Physical Examination - Vital Signs Temperature: 98.6 F Blood Pressure: 137/71 Pulse: 107 Respirations: 18 Pulse Ox (%): 94 - Physical Exam General: Alert, In no apparent distress HEENT: Atraumatic, PERRLA, EOMI Neck: Supple, JVD not distended Respiratory: Normal air movement, Expiratory wheezes, Inspiratory wheezes Cardiovascular: Regular rate/rhythm, Normal S1 S2 Gastrointestinal: Normal bowel sounds, No tenderness Musculoskeletal: Other (The left hand unable to be raised against gravity. 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 Not able to fix) Integumentary: No rashes Neurological: Normal speech, Normal tone, Normal affect Lymphatics: No axilla or inguinal lymphadenopathy - Studies Laboratory Data (last 24 hrs) 05/17/18 17:08: PT Cancelled, INR Cancelled, APTT Cancelled 05/17/18 17:08: WBC Cancelled, Hgb Cancelled, Hct Cancelled, Plt Count Cancelled 05/17/18 17:08: Sodium Cancelled, Potassium Cancelled, BUN Cancelled, Creatinine Cancelled, Glucose Cancelled, Magnesium Cancelled, Total Bilirubin Cancelled, AST Cancelled, ALT Cancelled, Alkaline Phosphatase Cancelled, Lipase Cancelled 05/17/18 16:55: PT 12.2, INR 1.03, APTT 38.1 H 05/17/18 16:55: WBC 18.4 H, Hgb 14.2, Hct 43.3, Plt Count 412 H 05/17/18 16:55: Sodium 138, Potassium 4.3, BUN 22 H, Creatinine 1.80 H, Glucose 102, Magnesium 1.8, Total Bilirubin 0.9, AST 23, ALT 16, Alkaline Phosphatase 136 H, Lipase 100 Medications List Reviewed: Yes Assessment And Plan - Current Problems (Diagnosis) (1) Intrahepatic bile duct dilation Current Visit: Yes Status: Acute Plan: Patient with intrahepatic biliary duct dilation along with extra hepatic dilation as well. Patient also has pancreatic duct dilation noted on her CT of the abdomen. -patient with history of chronic alcohol abuse causing her to have chronic pancreatitis -patient scheduled for MRCP at this time. (2) COPD exacerbation Onset Date: 06/03/17 Current Visit: No Status: Acute Plan: COPD exacerbation -DuoNeb, steroids, oxygen -wean off of oxygen as tolerated (3) Chronic pain disorder Onset Date: 04/05/18 Current Visit: No Status: Chronic (4) Coronary artery disease Onset Date: 06/03/17 Current Visit: No Status: Chronic Qualifiers: (5) Depression with anxiety Onset Date: 06/03/17 Current Visit: No Status: Chronic (6) Hyperlipidemia Onset Date: 06/03/17 Current Visit: No Status: Chronic Qualifiers: (7) Hypertension Onset Date: 06/03/17 Current Visit: No Status: Chronic Qualifiers: Hypertension type: essential hypertension - Plan Currently awaiting MRCP results. Will consult GI post MRCP results. Would try to wean off of oxygen as well at this time. Discharge Plan: Home Plan to discharge in: 24 Hours - Code Status/Comfort Care Code Status Assessed: Yes Critical Care: No
[2018-05-18] MEDS ORDERED: HYDROCOD 2.5mg-ACETAMIN 108mg/5mL Soln PO PRN (20:28)
[2018-05-18] MEDS ORDERED: ATORVASTATIN 10 MG TAB PO SCH (21:00)
[2018-05-18] MEDS: HOME MED 1 EA UNK (Cyclosporine [Restasis] 1 DROP) EACH EYE SCH (21:00)
[2018-05-18] MEDS ORDERED: METOPROLOL TAR 25 MG TAB PO ONE (21:20)
[2018-05-18] MEDS: PREGABALIN 50 MG CAP PO SCH (21:59)
[2018-05-18] MEDS: ENSURE ENLIVE 237 ML CAN PO SCH (22:03)
[2018-05-19] MEDS: METHYLPREDNISOLONE 40 MG INJ IV SCH ×3 (00:24→11:52)
[2018-05-19 01:27] VITALS: TEMP 97.9
[2018-05-19] MEDS: ALBUTEROL 2.5 MG/3 ML NEB SOL NEB SCH ×2 (01:37→07:29)
[2018-05-19] MEDS: IPRATROPIUM BROM 0.5MG/2.5ML NEB SCH ×2 (01:37→07:29)
[2018-05-19] MEDS: NA CHLORIDE 0.9% 1,000 ML IV SCH (05:20)
[2018-05-19 05:52] LABS: BUN Blood Urea Nitrogen 12 mg/dL (7-18); Bicarbonate 28 mmol/L (21-32); Glucose Level 149 mg/dL (74-106); Magnesium 1.9 mg/dL (1.8-2.4); Sodium Level 140 mmol/L (136-145)
[2018-05-19] MEDS ORDERED: METOPROLOL TAR 25 MG TAB PO SCH (06:00)
[2018-05-19] MEDS ORDERED: POTASSIUM CL SA 10 MEQ TAB PO ONE (06:41)
[2018-05-19] MEDS ORDERED: AMLODIPINE 2.5 MG TAB PO SCH (09:00)
[2018-05-19] MEDS: HOME MED 1 EA UNK (Cyclosporine [Restasis] 1 DROP) EACH EYE SCH (09:00)
[2018-05-19] MEDS ORDERED: ATENOLOL 25 MG TAB PO SCH (09:00)
[2018-05-19] MEDS ORDERED: ALPRAZOLAM 1 MG TABLET PO SCH (09:00)
[2018-05-19] MEDS ORDERED: DOXEPIN HCL 6 MG PO SCH (09:00)
[2018-05-19 09:30] VITALS: O2SAT 93
[2018-05-19] MEDS: ENOXAPARIN 40 MG/0.4 ML SQ SCH (09:38)
[2018-05-19] MEDS: PREGABALIN 50 MG CAP PO SCH (09:39)
[2018-05-19 09:41] VITALS: BP 188/92
[2018-05-19] MEDS: ENSURE ENLIVE 237 ML CAN PO SCH (10:16)
--- NOTE | 2018-05-19 14:55 | P.SSS ---
Patient History Date of Service: 05/19/18 Reason for admission: Shortness of breath History of Present Illness: Patient is a 72-year-old female who came into the hospital with altered mentation. Patient has not been feeling well and she was very short of breath. She was clinically getting worse so she came into the emergency room for further evaluation. In the ER she was found to be hypoxic and slightly hypercapnic. She was given O2 and respiratory treatments and her clinical symptoms have improved. However, patient does have significant COPD and would benefit from pulmonary function testing as an outpatient. She will be admitted to the hospital for further evaluation. Allergies adhesive tape Allergy (Verified 05/17/18 23:33) blisters codeine Allergy (Verified 05/17/18 23:33) Itching diphenhydramine [From Benadryl] Allergy (Verified 05/17/18 23:33) Itching Penicillins Allergy (Verified 05/17/18 23:33) Anaphylaxis Erythromycin Allergy (Severe, Uncoded 05/17/18 23:33) Nausea/Vomiting Home Medications: Alprazolam [Xanax] 1 mg PO DAILY 05/17/18 Amlodipine [Norvasc*] 2.5 mg PO DAILY 05/17/18 Atenolol [Tenormin*] 25 mg PO DAILY 05/17/18 Baclofen 10 mg PO BID PRN 05/17/18 Cyclosporine [Restasis] 1 drop EACH EYE BID 05/17/18 Doxepin HCl [Silenor] 6 mg PO DAILY 05/17/18 Hydrocodone/Acetaminophen [Hydrocodone-Acetamn 7.5-325/15] 15 ml PO BID PRN 07/24 Ipratropium/Albuterol Sulfate [Combivent Respimat 20-100 Mcg] 2 puff IH PRN 07/24 Meloxicam 15 mg PO DAILY 05/17/18 Pregabalin [Lyrica] 100 mg PO BID 05/17/18 Simvastatin 20 mg PO BEDTIME 05/17/18 Tiotropium Br/Olodaterol HCl [Stiolto Respimat Inhal [place]] 2 puff IH DAILY 07/24 Ipratropium/Albuterol Sulfate [Iprat-Albut 0.5-3(2.5) mg/3 ml] 3 ml IH Q4H PRN # 1 ampul.neb 05/19/18 predniSONE [Deltasone] 20 mg PO BID #30 tab 05/19/18 - Past Medical/Surgical History Has patient received pneumonia vaccine in the past: No Diabetic: No -: COPD -: HTN -: Osteoporosis -: Depression with anxiety -: Carotid arterial disease -: Macular Degenartion -: Hyperlipidemia -: Cataracts -: Cataract sx Rt eye -: Carotid enterectomy -: Cholecystectomy -: C-sections x3 -: Tonsillectomy Psychosocial/ Personal History: She is , she has 2 children, she lives with a sister. She does not work. - Family History Father -: Heart disease, Lung disease Mother -: Stroke Notes: TIA's - Social History Smoking Status: Never smoker Alcohol use: Yes CD- Drugs: No Caffeine use: Yes Place of Residence: Home Review of Systems 10-point ROS is otherwise unremarkable Physical Examination - Vital Signs Temperature: 97.9 F Blood Pressure: 188/92 Pulse: 106 Respirations: 18 Pulse Ox (%): 90 - Physical Exam General: Alert, In no apparent distress HEENT: Atraumatic, PERRLA, Mucous membr. moist/pink, EOMI, Sclerae nonicteric Neck: Supple, 2+ carotid pulse no bruit, No LAD, Without JVD or thyroid abnormality Respiratory: Clear to auscultation bilaterally, Normal air movement Cardiovascular: Regular rate/rhythm, Normal S1 S2 Gastrointestinal: Normal bowel sounds, No tenderness Musculoskeletal: No tenderness Integumentary: No rashes Neurological: Normal gait, Normal speech, Normal strength at 5/5 x4 extr, Normal tone, Normal affect Lymphatics: No axilla or inguinal lymphadenopathy - Diagnosis (Problem(s)) (1) Intrahepatic bile duct dilation Current Visit: Yes Status: Acute Plan: The patient refused to have MRCP done here in the hospital. States that she will have outpatient workup with GI. Currently just wants medical management. (2) COPD exacerbation Onset Date: 06/03/17 Current Visit: No Status: Acute Plan: Now resolved. (3) Chronic pain disorder Onset Date: 04/05/18 Current Visit: No Status: Chronic (4) Coronary artery disease Onset Date: 06/03/17 Current Visit: No Status: Chronic Qualifiers: (5) Depression with anxiety Onset Date: 06/03/17 Current Visit: No Status: Chronic (6) Hyperlipidemia Onset Date: 06/03/17 Current Visit: No Status: Chronic Qualifiers: (7) Hypertension Onset Date: 06/03/17 Current Visit: No Status: Chronic Qualifiers: Hypertension type: essential hypertension Treatment Summary: Overall during the hospital stay patient remained stable For patient's COPD exacerbation patient was started on duo nebs, steroids, oxygen. Patient was successfully weaned off of oxygen and had no wheezing and was not complaining of having any shortness of breath. Room air saturations were 94-95%. Patient then was discharged home with a nebulizer and prednisone. 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 For patient's dilated intrahepatic and extrahepatic duct initially patient was recommended to get MRCP done here in the hospital which she refused. Patient stated that she just wants medical management nothing to invasive and is not able to sit through the MRI machine for an hr. Patient states that she will follow up with her own GI doctor. Patient was educated on the need to follow up with her doctor for further management. Patient stated that she understands and will follow up with GI Patient was also complaining of having some trouble extending her left wrist. Patient again refused the MRI. X-ray of the wrist was inconclusive. Patient was then asked to follow up with orthopedic surgeon on outpatient basis. Home health was arranged for her to get physical therapy and occupational therapy for the left upper arm. - Disposition Disposition: ROUTINE DISCHARGE Condition: GOOD Patient Discharge Instructions: Please f.u with PCP, GI, Ortho and Pulmonology in 1 to 2 week post discharge. You will need GI f/u for CBD dilation. You will need Ortho f/u for Left wrist droop. Since you are unable to do MRI here in the hospital You will need to be seen by specialist outpt for further treatment. New medication. Duonebs q4h For Wheezing and SOB. Prednisone Taper Dose : Take 20mg BID for 5 days. Take 10mg BID for 5 days. Take 10mg daily for 5 days. Take 5mg Daily for 5 days Diet: Regular Activity: Ad ely
[2018-05-19] MEDS ORDERED: Levofloxacin 250mg IV 250 MG/50 ML BAG IV SCH (19:00)
== END 2018-05-19 14:00 | disposition home health service (06) | DRG 191 ==
LOC: ER 16:41 → ERHOLD 18:31 → 2ND 22:01
PROVIDERS: ADMIT Hospitalist; ATTEND Hospitalist
DX: J44.1 Chronic obstructive pulmonary disease with (acute) exacerbation (principal); E87.1 Hypo-osmolality and hyponatremia; K82.8 Other specified diseases of gallbladder; I25.10 Atherosclerotic heart disease of native coronary artery without angina pectoris; F41.8 Other specified anxiety disorders; E78.5 Hyperlipidemia, unspecified; I10 Essential (primary) hypertension; G89.29 Other chronic pain; H35.30 Unspecified macular degeneration; Z88.0 Allergy status to penicillin
CPT/HCPCS: 36415; 70450; 71045; 74176; 76377; 80048; 80053; 80076; 81003; 82550; 82553; 83690; 83735; 83880; 84100; 84484; 85025; 85610; 85730; 87040; 87086; 87088; 93005; 94640; 96361; 96365; 96375; 99285; J0696; J1650; J2920; J3411; J3475; J7030

== ENCOUNTER 2018-11-18 06:59 | Inpatient (IN) | payer OTHER ==
--- NOTE | 2018-11-18 08:04 | RAD REPORT ---
EXAM DESCRIPTION: CT - Head Brain Wo Cont - 11/18/2018 7:56 am CLINICAL HISTORY: Transient alteration of awareness, seizure like activity COMPARISON: CT head May 17, 2018 TECHNIQUE: Axial 5 mm thick images of the head were obtained without IV contrast. All CT scans are performed using dose optimization technique as appropriate and may include automated exposure control or mA/KV adjustment according to patient size. FINDINGS: No intracranial hemorrhage, mass, edema or shift of mid-line structures. No acute infarcti on changes seen. Moderate atrophy and chronic ischemic changes are present. Ventricles are in proport ion to volume loss. Arterial and physiologic calcifications are present. Small posterior right pariet al scalp hematoma present. Mastoid air cells and visualized portions of the paranasal sinuses are clear. No acute bony findings. IMPRESSION: Moderate atrophy and chronic ischemic change similar to comparison. No acute intracrania l finding. Small right parietal scalp hematoma with underlying bone intact.
[2018-11-18 08:10] LABS: Protime INR 0.92
[2018-11-18 08:22] LABS: Albumin 4.6 g/dL (3.4-5.0); Bilirubin Direct 0.2 mg/dL (0-0.2); Bilirubin Total 0.6 mg/dL (0.2-1.0); CKMB Creatine Kinase MB 3.8 ng/mL (0.3-3.6); Potassium 3.9 mmol/L (3.5-5.1); Protein, Total 8.1 g/dL (6.4-8.2); Troponin (Emerg Dept Use Only) 0.26 ng/mL (0.0-0.045)
[2018-11-18 08:23] LABS: Absolute Lymphocytes (CBC) 0.6 K/uL (0.7-4.9); Absolute Monocytes 0.8 K/uL (0.1-1.3); Absolute Neutrophil 13.1 K/uL (1.8-8.0); Basophils % 0.2 % (0-1.3); Hematocrit 36.2 % (36.0-45.0); Lymphocytes % 4.1 % (15.3-44.8); MPV 6.8 fL (7.6-11.3); Monocytes % 5.6 % (3.3-12.3); RBC Red Blood Cell Count 3.85 M/uL (3.86-4.86)
--- NOTE | 2018-11-18 08:29 | RAD REPORT ---
EXAM DESCRIPTION: RAD - Chest Single View - 11/18/2018 7:57 am CLINICAL HISTORY: COPD, seizure-like activity, altered mental status COMPARISON: May 2018, March 2018 TECHNIQUE: AP portable chest image was obtained . FINDINGS: Fibrotic lung changes are present not appearing different from baseline. No focal mass, co nsolidation failure finding. Heart and vasculature are normal. No measurable pleural effusion and no pneumothorax. Degenerative and scoliotic changes are present and stable. No acute aortic findings jae pected. IMPRESSION: Baseline fibrotic lung pattern seen. No acute cardiopulmonary finding identified.
[2018-11-18] MEDS ORDERED: NA CHLORIDE 0.9% 100 ML IV ONE (08:33)
[2018-11-18] MEDS ORDERED: THIAMINE 200 MG/2 ML INJ ONE (08:33)
[2018-11-18 09:16] LABS: Blood Morphology Comment NOT SEEN (NOT SEEN); Platelet Estimate ADEQ
--- NOTE | 2018-11-18 10:19 | ER ---
Nurse's Notes [facility] Name: Shilpa Richardson Age: 73 yrs Sex: Female : 1945 Arrival Date: 11/18/2018 Time: 07:01 Bed 3 Private MD: Diagnosis: Altered mental status, unspecified;Elevated white blood cell count;Bandemia Presentation: 11/18 07:01 Presenting complaint: EMS states: AMS x1 WK, QUESTIONABLE SZ-LIKE ACTIVITY THIS AM. bp Transition of care: patient was not received from another setting of care. No acute neurological deficit is noted. The patients blood glucose was checked prior to arriving to the hospital and was found to be hyperglycemic. The patient has been moved to a treatment room. Onset of symptoms is unknown. Risk Assessment: Do you want to hurt yourself or someone else? Patient reports no desire to harm self or others. Initial Sepsis Screen: Does the patient meet any 2 criteria? Altered Mental Status. No. Patient's initial sepsis screen is negative. Does the patient have a suspected source of infection? No. Patient's initial sepsis screen is negative. Care prior to arrival: Glucose check: 225. 07:01 Method Of Arrival: EMS: [facility] bp 07:01 Acuity: PATRICIA 2 bp Triage Assessment: 07:11 The onset of the patients symptoms was more than six hours ago. General: Appears in no bp apparent distress. comfortable, slender, Behavior is calm, cooperative, inappropriate for age. Pain: Complains of pain in abdomen. EENT: No deficits noted. Neuro: Reports CONFUSION. Cardiovascular: No deficits noted. Respiratory: Airway is patent Respiratory effort is even, unlabored, Respiratory pattern is regular, symmetrical. GI: Reports lower abdominal pain. : No signs and/or symptoms were reported regarding the genitourinary system. Derm: No deficits noted. Musculoskeletal: Circulation, motion, and sensation intact. Range of motion: intact in all extremities. 07:30 The onset of the patients symptoms was November 11, 2018 at 08:00. bp Stroke Activation: Symptom onset > 6 hours Physician: Stroke Attending; Name: ; Notified At: ; Arrived At: Physician: Chief Stroke Resident; Name: ; Notified At: ; Arrived At: Physician: Stroke Resident; Name: ; Notified At: ; Arrived At: Physician: ED Attending; Name: ; Notified At: ; Arrived At: Physician: ED Resident; Name: ; Notified At: ; Arrived At: Historical: - Allergies: 07:11 Erythromycin; bp 07:11 PENICILLINS; bp - Home Meds: 07:11 alprazolam 1 mg Oral tab BID [Active]; amlodipine 2.5 mg tab 1 tab once daily [Active]; bp atenolol 25 mg Oral tab once daily [Active]; baclofen 10 mg Oral tab BID [Active]; Combivent [place] [Active]; hydrocodone-acetaminophen 7.5-325 mg/15 mL Oral soln take one tablespoon TID [Active]; Lyrica 100mg Oral 2 times per day [Active]; meloxicam 15 mg Oral tab 1 tab once daily [Active]; Restasis ophthalmic 1 drop 2 times per day [Active]; Silenor 6 mg Oral tab 1 tab once daily [Active]; simvastatin 20 mg Oral tab once daily [Active]; Stiolto Respimat 2.5-2.5 mcg/actuation inhalation mist 2 puffs once daily [Active]; - PMHx: 07:11 Alcoholism; Anxiety; Carotid blockage; Chronic pain; COPD; Depression; Hypertension; bp - Immunization history:: Adult Immunizations up to date. - Social history:: Smoking status: Patient uses tobacco products, unknown amount. - Ebola Screening: : Patient negative for fever greater than or equal to 101.5 degrees Fahrenheit, and additional compatible Ebola Virus Disease symptoms Patient denies exposure to infectious person Patient denies travel to an Ebola-affected area in the 21 days before illness onset No symptoms or risks identified at this time. - Family history:: not pertinent. Screenin:11 Abuse screen: Denies threats or abuse. Denies injuries from another. Nutritional bp screening: No deficits noted. Tuberculosis screening: No symptoms or risk factors identified. Fall Risk Fall in past 12 months (25 points). Secondary diagnosis (15 points) TIA, No IV (0 pts). Ambulatory Aid- None/Bed Rest/Nurse Assist (0 pts). Gait- Normal/Bed Rest/Wheelchair (0 pts) Mental Status- Overestimates/Forgets Limitations (15 pts.). Total Solorzano Fall Scale indicates High Risk Score (45 or more points). Fall prevention measures have been instituted. Side Rails Up X 2 Placed Close to Nursing Station Frequent Obs/Assessments Occuring As available patient and family educated on Fall Prevention Program and Strategies. Assessment: 07:11 VAN Scoring: Arm Drift: Patients demonstrates NO arm weakness. Patient is VAN Negative. bp The patient has not been NPO before screening. The patient is not alert and/or unable to follow commands. Bedside swallow screen discontinued. Patient kept NPO until cleared by Speech Therapy or Physician. The patient failed the bedside swallow screening. The patient will be kept NPO until cleared by Speech Therapy or Physician. Provider notified of bedside swallow screening results: Erik Patiño RN. The patient does not exhibit slurred or garbled speech. The patient is not exhibiting difficulty speaking. The patient does not exhibit difficulty understanding words. The patient is able to swallow own secretions with no drooling or need for suction. Patient tolerated one teaspoon of water. No drooling, immediate coughing, gurgling, or clearing of the throat was noted. The patient tolerated 90mL of water. No drooling, immediate coughing, gurgling, or clearing of the throat was noted. T-PA (Activase) Screening: Contraindications: Patient reports onset of signs and symptoms of stroke greater than 6 hours ago: Yes. General: SEE TRIAGE NOTES. 08:30 Reassessment: ALL CURRENT ORDERS COMPLETED, UOP AND RESULTS PENDING. bp 09:59 Reassessment: PT LETHARGIC, AOx 1-2, REMAINS HYPERTENSIVE ON MONITOR. STRAIGHT CATH FOR bp URINE. 12:15 Reassessment: PT RETURNED FROM MRI, RESULTS PENDING. bp Vital Signs: 07:11 BP 211 / 96; Pulse 104; Resp 20; Temp 97; Pulse Ox 99% ; Weight 45.36 kg; bp 07:34 BP 208 / 95; Pulse 101; Resp 20; Pulse Ox 94% on R/A; bp 08:30 BP 193 / 86; Pulse 102; Resp 14; Pulse Ox 95% ; bp 09:00 BP 207 / 92; Pulse 100; Resp 14; Pulse Ox 94% ; bp 09:58 BP 205 / 91; Pulse 106; Resp 16; Pulse Ox 95% ; bp 11:00 BP 223 / 93; Pulse 104; Resp 12; Pulse Ox 92% on R/A; bp 12:00 BP 207 / 93; Pulse 104; Resp 16; Pulse Ox 93% ; bp 13:00 BP 207 / 95; Pulse 98; Resp 14; Pulse Ox 99% ; bp NIH Stroke Scale Scores: 07:11 NIHSS Score: 3 bp ED Course: 07:01 Patient arrived in ED. hj 07:01 Erik Patiño, RN is Primary Nurse. bp 07:04 Triage completed. bp 07:11 Arm band placed on. bp 07:11 Patient has correct armband on for positive identification. Bed in low position. Call bp light in reach. Side rails up X2. 07:27 Hector Gray MD is Attending Physician. priti 07:43 EKG done, by fiber technician. reviewed by Hector Gray MD. at1 07:45 Inserted saline lock: 20 gauge in left antecubital area, using aseptic technique. Blood bp collected. 07:54 X-ray completed. Portable x-ray completed in exam room. Patient tolerated procedure jb2 well. 07:56 Chest Single View XRAY In Process Unspecified. EDMS 07:56 CT completed. Patient tolerated procedure well. Patient moved to CT via stretcher. sj Patient moved back from CT. 07:56 CT Head Brain wo Cont In Process Unspecified. EDMS 10:05 Straight cath inserted, using sterile technique, 16 Fr. Specimen obtained. Returned aa5 clear yellow urine. Patient tolerated well. 10:16 Candace Hatch MD is Hospitalizing Provider. priti 11:50 Patient moved to MRI via stretcher. em2 13:43 No provider procedures requiring assistance completed. Patient admitted, IV remains in bp place. Administered Medications: 08:20 Drug: Thiamine 100 mg Route: IV; Rate: bolus; Site: left antecubital; bp 08:42 Follow up: IV Status: Completed infusion; IV Intake: 100ml bp 10:30 Drug: Cefepime 1 grams Route: IVPB; Rate: 200 ml/hr; Infused Over: 30 mins; Site: left bp antecubital; 11:20 Follow up: IV Status: Completed infusion; IV Intake: 100ml bp 10:31 Drug: Aspirin Chewable Tablet 162 mg Route: PO; bp 11:32 Follow up: Response: No adverse reaction bp 11:20 Drug: vancoMYCIN 1 grams Route: IVPB; Infused Over: 2 hrs; Site: left antecubital; bp 12:30 Follow up: IV Status: Completed infusion; IV Intake: 250ml bp Point of Care Testing: Blood Glucose: 07:05 Blood Glucose: 225 mg/dL; bp Ranges: Intake: 08:42 IV: 100ml; Total: 100ml. bp 11:20 IV: 100ml; Total: 200ml. bp 12:30 IV: 250ml; Total: 450ml. bp Outcome: 10:19 Decision to Hospitalize by Provider. priti 13:42 Admitted to Med/surg accompanied by tech, via stretcher, room 408, with chart, Report bp called to OZZIE VALERO 13:42 Condition: stable 13:42 Instructed on the need for admit. 13:44 Patient left the ED. bp NIH Stroke Scale - NIH Stroke Score Date: 11/18/2018 Time: 07:11 Total Score = 3 1a. Level of Consciousness (LOC) - 1(Not Alert) 1b. Level of Consciousness (LOC) (Year \T\ Age) - 1(One) 1c. LOC Commands (Open \T\ Closes Eyes/Social Work Lecturer) - 0(Both) 2. Best Gaze (Lateral Gaze Paresis) - 0(Normal) 3. Visual Field Loss - 0(No visual loss) 4. Facial Palsy - 0(Normal) 5a. Left Arm: Motor (10-second hold) - 0(No drift) 5b. Right Arm: Motor (10-second hold) - 0(No drift) 6a. Left Leg: Motor (5-second hold - always test supine) - 0(No drift) 6b. Right Leg: Motor (5-second hold - always test supine) - 0(No drift) 7. Limb Ataxia (finger/nose \T\ heel/guerra - test with eyes open) - 0(Absent) 8. Sensory Loss (pinprick arms/legs/face) - 0(Normal) 9. Best Language: Aphasia (description/naming/reading) - 1(Mild to moderate aphasia) 10. Dysarthria (speech clarity - read or repeat words) - 0(Normal) 11. Extinction and Inattention (visual/tactile/auditory/spatial/personal) - 0(No abnormality) Initials: bp Signatures: Dispatcher [employer] EDHector Maciel MD MD cha Buechter, Jesse jb2 Farzaneh Hwang Audri, RN RN aa5 Shahram Hong em2 Dorene Garza, furniture mover EKG Tat1 Danny, Papo, RN RN hj Kaylyn, Erik, RN RN bp Corrections: (The following items were deleted from the chart) 12:08 11:00 BP 207 / 93; Pulse 104bpm; Resp 16bpm; Pulse Ox 93%; bp bp
--- NOTE | 2018-11-18 10:20 | EDPHYS ---
Physician Documentation [facility] Name: Shilpa Richardson Age: 73 yrs Sex: Female : 1945 Arrival Date: 11/18/2018 Time: 07:01 Bed 3 Private MD: ED Physician Hector Gray HPI: 11/18 08:29 This 73 yrs old Female presents to ER via EMS with complaints of S/S of priti Possible Stroke. 08:29 The patient's problem is reported as altered mental status, disoriented to self, place, priti time, confused. Onset: The symptoms/episode began/occurred just prior to arrival. Duration: This was a single incident. Context: the episode(s) was witnessed. The symptoms are alleviated by nothing. The symptoms are aggravated by nothing. Associated signs and symptoms: The patient has no apparent associated signs or symptoms. It is unknown whether or not the patient has had similar symptoms in the past. Historical: - Allergies: 07:11 Erythromycin; bp 07:11 PENICILLINS; bp - Home Meds: 07:11 alprazolam 1 mg Oral tab BID [Active]; amlodipine 2.5 mg tab 1 tab once daily [Active]; bp atenolol 25 mg Oral tab once daily [Active]; baclofen 10 mg Oral tab BID [Active]; Combivent Inhl [Active]; hydrocodone-acetaminophen 7.5-325 mg/15 mL Oral soln take one tablespoon TID [Active]; Lyrica 100mg Oral 2 times per day [Active]; meloxicam 15 mg Oral tab 1 tab once daily [Active]; Restasis ophthalmic 1 drop 2 times per day [Active]; Silenor 6 mg Oral tab 1 tab once daily [Active]; simvastatin 20 mg Oral tab once daily [Active]; Stiolto Respimat 2.5-2.5 mcg/actuation inhalation mist 2 puffs once daily [Active]; - PMHx: 07:11 Alcoholism; Anxiety; Carotid blockage; Chronic pain; COPD; Depression; Hypertension; bp - Immunization history:: Adult Immunizations up to date. - Social history:: Smoking status: Patient uses tobacco products, unknown amount. - Ebola Screening: : Patient negative for fever greater than or equal to 101.5 degrees Fahrenheit, and additional compatible Ebola Virus Disease symptoms Patient denies exposure to infectious person Patient denies travel to an Ebola-affected area in the 21 days before illness onset No symptoms or risks identified at this time. - Family history:: not pertinent. ROS: 08:29 Constitutional: Negative for fever, chills, and weight loss, Eyes: Negative for injury, priti pain, redness, and discharge, ENT: Negative for injury, pain, and discharge, Neck: Negative for injury, pain, and swelling, Cardiovascular: Negative for chest pain, palpitations, and edema, Respiratory: Negative for shortness of breath, cough, wheezing, and pleuritic chest pain, Abdomen/GI: Negative for abdominal pain, nausea, vomiting, diarrhea, and constipation, Back: Negative for injury and pain, : Negative for injury, bleeding, discharge, and swelling, MS/Extremity: Negative for injury and deformity, Skin: Negative for injury, rash, and discoloration, Psych: Negative for depression, anxiety, suicide ideation, homicidal ideation, and hallucinations, Allergy/Immunology: Negative for hives, rash, and allergies, Endocrine: Negative for neck swelling, polydipsia, polyuria, polyphagia, and marked weight changes, Hematologic/Lymphatic: Negative for swollen nodes, abnormal bleeding, and unusual bruising. 08:29 Neuro: Positive for altered mental status, weakness. Exam: 08:29 Constitutional: This is a well developed, well nourished patient who is awake, alert, priti and in no acute distress. Head/Face: Normocephalic, atraumatic. Eyes: Pupils equal round and reactive to light, extra-ocular motions intact. Lids and lashes normal. Conjunctiva and sclera are non-icteric and not injected. Cornea within normal limits. Periorbital areas with no swelling, redness, or edema. ENT: Nares patent. No nasal discharge, no septal abnormalities noted. Tympanic membranes are normal and external auditory canals are clear. Oropharynx with no redness, swelling, or masses, exudates, or evidence of obstruction, uvula midline. Mucous membranes moist. Neck: Trachea midline, no thyromegaly or masses palpated, and no cervical lymphadenopathy. Supple, full range of motion without nuchal rigidity, or vertebral point tenderness. No Meningismus. Chest/axilla: Normal chest wall appearance and motion. Nontender with no deformity. No lesions are appreciated. Cardiovascular: Regular rate and rhythm with a normal S1 and S2. No gallops, murmurs, or rubs. Normal PMI, no JVD. No pulse deficits. Abdomen/GI: Soft, non-tender, with normal bowel sounds. No distension or tympany. No guarding or rebound. No evidence of tenderness throughout. Back: No spinal tenderness. No costovertebral tenderness. Full range of motion. Female : Normal external genitalia. Skin: Warm, dry with normal turgor. Normal color with no rashes, no lesions, and no evidence of cellulitis. MS/ Extremity: Pulses equal, no cyanosis. Neurovascular intact. Full, normal range of motion. Psych: Awake, alert, with orientation to person, place and time. Behavior, mood, and affect are within normal limits. 08:29 Respiratory: the patient does not display signs of respiratory distress, Respirations: normal, Breath sounds: bronchial sounds, that are mild. 08:32 Radiologist reports: nad, old changes [facility] Vital Signs: 07:11 BP 211 / 96; Pulse 104; Resp 20; Temp 97; Pulse Ox 99% ; Weight 45.36 kg; bp 07:34 BP 208 / 95; Pulse 101; Resp 20; Pulse Ox 94% on R/A; bp 08:30 BP 193 / 86; Pulse 102; Resp 14; Pulse Ox 95% ; bp 09:00 BP 207 / 92; Pulse 100; Resp 14; Pulse Ox 94% ; bp 09:58 BP 205 / 91; Pulse 106; Resp 16; Pulse Ox 95% ; bp 11:00 BP 223 / 93; Pulse 104; Resp 12; Pulse Ox 92% on R/A; bp 12:00 BP 207 / 93; Pulse 104; Resp 16; Pulse Ox 93% ; bp 13:00 BP 207 / 95; Pulse 98; Resp 14; Pulse Ox 99% ; bp NIH Stroke Scale Scores: 07:11 NIHSS Score: 3 bp MDM: 07:40 Patient medically screened. [facility] 08:32 Data reviewed: vital signs, nurses notes, lab test result(s), EKG, radiologic studies, [facility] CT scan, plain films. 11/18 07:27 Order name: Basic Metabolic Panel; Complete Time: 10:11 bp 11/18 07:27 Order name: Blood Culture Adult (2) bp 11/18 07:27 Order name: CBC with Diff; Complete Time: 10:11 bp 11/18 07:27 Order name: Ckmb; Complete Time: 10:11 bp 11/18 07:27 Order name: CPK; Complete Time: 10:11 bp 11/18 07:27 Order name: Lactate; Complete Time: 10:11 bp 11/18 07:27 Order name: LFT's; Complete Time: 10:11 bp 11/18 07:27 Order name: Lipase; Complete Time: 10:11 bp 11/18 07:27 Order name: Procalcitonin; Complete Time: 10:11 bp 11/18 07:27 Order name: Protime (+inr); Complete Time: 10:11 bp 11/18 07:27 Order name: Ptt, Activated; Complete Time: 10:11 bp 11/18 07:27 Order name: Troponin (emerg Dept Use Only); Complete Time: 10:11 bp 11/18 07:27 Order name: Urine Microscopic Only bp 11/18 07:33 Order name: ETOH Level; Complete Time: 10:11 bp 11/18 07:27 Order name: Chest Single View XRAY; Complete Time: 10:11 bp 11/18 07:27 Order name: Accucheck; Complete Time: 08:18 bp 11/18 07:27 Order name: Cardiac monitoring; Complete Time: 08:18 bp 11/18 07:27 Order name: EKG - Nurse/Tech; Complete Time: 07:29 bp 11/18 07:27 Order name: IV Saline Lock - Large Bore; Complete Time: 08:18 bp 11/18 07:27 Order name: Labs collected and sent; Complete Time: 08:18 bp 11/18 07:33 Order name: Urine Drug Screen bp 11/18 07:44 Order name: CT Head Brain wo Cont; Complete Time: 08:15 priti 11/18 09:17 Order name: Manual Differential; Complete Time: 10:11 EDMS 11/18 10:18 Order name: Urine Dipstick--Ancillary (enter results) eb 11/18 11:32 Order name: MRI Stroke Protocol bp 11/18 12:35 Order name: MRI EDMS 11/18 07:27 Order name: O2 Per Protocol; Complete Time: 08:18 bp 11/18 07:27 Order name: O2 Sat Monitoring; Complete Time: 08:18 bp 11/18 07:27 Order name: Urine Dipstick-Ancillary (obtain specimen); Complete Time: 10:04 bp 11/18 10:17 Order name: Straight Cath - Urine: VO received at 1000; Complete Time: 10:17 aa5 Administered Medications: 08:20 Drug: Thiamine 100 mg Route: IV; Rate: bolus; Site: left antecubital; bp 08:42 Follow up: IV Status: Completed infusion; IV Intake: 100ml bp 10:30 Drug: Cefepime 1 grams Route: IVPB; Rate: 200 ml/hr; Infused Over: 30 mins; Site: left bp antecubital; 11:20 Follow up: IV Status: Completed infusion; IV Intake: 100ml bp 10:31 Drug: Aspirin Chewable Tablet 162 mg Route: PO; bp 11:32 Follow up: Response: No adverse reaction bp 11:20 Drug: vancoMYCIN 1 grams Route: IVPB; Infused Over: 2 hrs; Site: left antecubital; bp 12:30 Follow up: IV Status: Completed infusion; IV Intake: 250ml bp Point of Care Testing: Blood Glucose: 07:05 Blood Glucose: 225 mg/dL; bp Ranges: Critical Glucose Levels:Adult <50 mg/dl or >400 mg/dl <40 mg/dl or >180 mg/dl Disposition: 11/18/18 10:19 Hospitalization ordered by Candace Hatch for Inpatient Admission. Preliminary diagnosis are Altered mental status, unspecified, Elevated white blood cell count, Bandemia. - Bed requested for Telemetry/MedSurg (Inpatient). - Status is Inpatient Admission. bp - Condition is Fair. - Problem is new. - Symptoms have improved. UTI on Admission? No NIH Stroke Scale - NIH Stroke Score Date: 11/18/2018 Time: 07:11 Total Score = 3 1a. Level of Consciousness (LOC) - 1(Not Alert) 1b. Level of Consciousness (LOC) (Year \T\ Age) - 1(One) 1c. LOC Commands (Open \T\ Closes Eyes/[employer]) - 0(Both) 2. Best Gaze (Lateral Gaze Paresis) - 0(Normal) 3. Visual Field Loss - 0(No visual loss) 4. Facial Palsy - 0(Normal) 5a. Left Arm: Motor (10-second hold) - 0(No drift) 5b. Right Arm: Motor (10-second hold) - 0(No drift) 6a. Left Leg: Motor (5-second hold - always test supine) - 0(No drift) 6b. Right Leg: Motor (5-second hold - always test supine) - 0(No drift) 7. Limb Ataxia (finger/nose \T\ heel/guerra - test with eyes open) - 0(Absent) 8. Sensory Loss (pinprick arms/legs/face) - 0(Normal) 9. Best Language: Aphasia (description/naming/reading) - 1(Mild to moderate aphasia) 10. Dysarthria (speech clarity - read or repeat words) - 0(Normal) 11. Extinction and Inattention (visual/tactile/auditory/spatial/personal) - 0(No abnormality) Initials: bp Signatures: Dispatcher [employer] EDMS Hector Gray MD MD cha Calderon, Audri RN RN aa5 Erik Patiño RN Araceli Tucker Corrections: (The following items were deleted from the chart) 10:16 10:15 Jacinto ordered. priti rubi 11:03 10:19 Hospitalization Ordered by Candace Hatch MD for Inpatient Admission. eb Preliminary diagnosis is Altered mental status, unspecified; Elevated white blood cell count; Bandemia. Bed requested for Telemetry/MedSurg (Inpatient). Status is Inpatient Admission. Condition is Fair. Problem is new. Symptoms have improved. UTI on Admission? No. [facility] 12:45 11:03 11/18/2018 10:19 Hospitalization Ordered by Candace Hatch MD for Inpatient eb Admission. Preliminary diagnosis is Altered mental status, unspecified; Elevated white blood cell count; Bandemia. Bed requested for [facility] ER HOLD. Status is Inpatient Admission. Condition is Fair. Problem is new. Symptoms have improved. UTI on Admission? No. eb 13:44 12:45 11/18/2018 10:19 Hospitalization Ordered by Candace Hatch MD for Inpatient bp Admission. Preliminary diagnosis is Altered mental status, unspecified; Elevated white blood cell count; Bandemia. Bed requested for Telemetry/MedSurg (Inpatient). Status is Inpatient Admission. Condition is Fair. Problem is new. Symptoms have improved. UTI on Admission? No. eb
[2018-11-18 10:29] LABS: Barbiturates NEGATIVE (NEGATIVE); Benzodiazepines NEGATIVE (NEGATIVE); Cocaine NEGATIVE (NEGATIVE); METHAMPHETAM NEGATIVE (NEGATIVE); Methadone NEGATIVE (NEGATIVE); Opiates NEGATIVE (NEGATIVE); Phencyclidine NEGATIVE (NEGATIVE); THC Cannibis NEGATIVE (NEGATIVE)
[2018-11-18] MEDS ORDERED: VANCOMYCIN/NS 1 gm 1 GM/250 ML BAG IV ONE (10:45)
[2018-11-18] MEDS ORDERED: ASPIRIN 81 MG CHEWABLE TABLET ONE (11:01)
[2018-11-18] MEDS ORDERED: CEFEPIME 2 GM VIAL ONE (11:01)
[2018-11-18] MEDS ORDERED: NA CHLORIDE 0.9% 250 ML ONE (11:01)
[2018-11-18 11:02] LABS: Urine Bacteria <20 /HPF (<20); Urine Culture Reflex Order NOT NEEDED; Urine RBC <5 /HPF (NONE SEEN)
[2018-11-18 11:58] LABS: Urine Blood NEGATIVE (NEG); Urine Glucose TRACE (NEG); Urine Protein NEGATIVE (NEG); Urine Specific Gravity 1.015 (1.005-1.030)
--- NOTE | 2018-11-18 12:34 | RAD REPORT ---
EXAM DESCRIPTION: MRI - Brain Wo Cont - 11/18/2018 12:21 pm CLINICAL HISTORY: Alteration of awareness. Seizure COMPARISON: November 18, 2018 TECHNIQUE: Axial, sagittal, and coronal magnetic images of the brain were obtained. Contrast was not requested FINDINGS: Right posterior scalp swelling is present. Mild to moderate signal within periventricular, deep and subcortical white matter likely represents i schemic changes secondary to small vessel disease. Diffusion-weighted/ADC mapping does not reveal evidence of acute infarction. The ventricles are normal caliber. An extra-axial fluid collection is not present. Hippocampal gyri are normal caliber and signal The sinuses and mastoids are clear. IMPRESSION: Right posterior scalp swelling probably posttraumatic. This should correlated clinically . No acute intracranial abnormality
[2018-11-18 15:14] VITALS: BMI 16.1
[2018-11-18] MEDS ORDERED: HYDRALAZINE HCL 20 MG/ML VIAL IV ONE (16:00)
[2018-11-18] MEDS ORDERED: INFLUENZA VACCINE (for 3y+) 0.5 ML DOSE IMVAC ONE (16:00)
[2018-11-18] MEDS ORDERED: PNEUMOCOCCAL VACCINE 0.5 ML IMVAC ONE (16:00)
[2018-11-18] MEDS: D5LR 1,000 ML IV SCH ×2 (16:20→21:08)
--- NOTE | 2018-11-18 18:07 | P.HP ---
Certification for Inpatient Patient admitted to: Inpatient With expected LOS: >2 Midnights Practitioner: I am a practitioner with admitting privileges, knowledge of patient current condition, hospital course, and medical plan of care. Services: Services provided to patient in accordance with Admission requirements found in Title 42 Section 412.3 of the Code of Federal Regulations Patient History Date of Service: 11/18/18 Reason for admission: Altered Mental status History of Present Illness: This is a 73-year-old female with history of COPD, CAD, chronic pain, depression and anxiety admitted for altered mental status. Patient cannot provide any history. She is unable to communicate at this time. History from the ER note and chart review. The patient lives with sister. Per ED, patient has been altered all week and progressively worsening?. Unknown baseline. In the ED, labs significant for sodium of 129 and a WBC count of 14.5. Pro calcitonin was negative, but the lactic acid was elevated at 9.6. Chest x-ray without any acute abnormalities with baseline fibrotic lung changes and head CT was negative. An MRI was ordered by me, negative for any acute stroke/CVA. Blood pressure was elevated at 204/89. At the time of my exam, patient was not really responsive. She was able to follow some commands sometimes, she did shake her head to everything, if asked a yes or no question. Allergies adhesive tape Allergy (Verified 05/17/18 23:33) blisters codeine Allergy (Verified 05/17/18 23:33) Itching diphenhydramine [From Benadryl] Allergy (Verified 05/17/18 23:33) Itching Penicillins Allergy (Verified 05/17/18 23:33) Anaphylaxis Erythromycin Allergy (Severe, Uncoded 05/17/18 23:33) Nausea/Vomiting Home Medications: RX: Alprazolam [Xanax] 1 mg PO DAILY 05/17/18 RX: Amlodipine [Norvasc*] 2.5 mg PO DAILY 05/17/18 RX: Atenolol [Tenormin*] 25 mg PO DAILY 05/17/18 RX: Baclofen 10 mg PO BID PRN 05/17/18 RX: Cyclosporine [Restasis] 1 drop EACH EYE BID 05/17/18 RX: Doxepin HCl [Silenor] 6 mg PO DAILY 05/17/18 RX: Hydrocodone/Acetaminophen [Hydrocodone-Acetamn 7.5-325/15] 15 ml PO BID PRN 05/17/18 RX: Ipratropium/Albuterol Sulfate [Combivent Respimat 20-100 Mcg] 2 puff IH PRN 05/17/18 RX: Meloxicam 15 mg PO DAILY 05/17/18 RX: Pregabalin [Lyrica] 100 mg PO BID 05/17/18 RX: Simvastatin 20 mg PO BEDTIME 05/17/18 RX: Tiotropium Br/Olodaterol HCl [Stiolto Respimat Inhal [place]] 2 puff IH DAILY 05/17/18 RX: Ipratropium/Albuterol Sulfate [Iprat-Albut 0.5-3(2.5) mg/3 ml] 3 ml IH Q4H PRN #1 ampul.neb 05/19/18 predniSONE [Deltasone] 20 mg PO BID #30 tab 05/19/18 - Past Medical/Surgical History Has patient received pneumonia vaccine in the past: No Diabetic: No -: COPD -: HTN -: Osteoporosis -: Depression with anxiety -: Carotid arterial disease -: Macular Degenartion -: Hyperlipidemia -: Cataracts -: Cataract sx Rt eye -: Carotid enterectomy -: Cholecystectomy -: C-sections x3 -: Tonsillectomy Psychosocial/ Personal History: She is , she has 2 children, she lives with a sister. She does not work. - Family History Father -: Heart disease, Lung disease Mother -: Stroke Notes: TIA's - Social History Smoking Status: Unknown if ever smoked Alcohol use: Yes CD- Drugs: No Caffeine use: Yes Place of Residence: Home Review of Systems is unable to be obtained Physical Examination - Vital Signs Temperature: 97.0 F Blood Pressure: 150/90 Pulse: 97 Respirations: 20 Pulse Ox (%): 98 - Physical Exam General: Cachectic, Other (Frail, elderly. Intermittently able to follow some commands, though not really responding.) HEENT: Other (Sluggish pupillary response) Neck: Supple, JVD not distended Respiratory: Clear to auscultation bilaterally, Normal air movement Cardiovascular: Regular rate/rhythm Gastrointestinal: Normal bowel sounds, Soft and benign, Non-distended Musculoskeletal: No clubbing, No swelling Integumentary: No rashes - Studies Laboratory Data (last 24 hrs) 11/18/18 07:45: PT 10.9, INR 0.92, APTT 29.2 11/18/18 07:45: WBC 14.5 H D, Hgb 12.3, Hct 36.2, Plt Count 591 H 11/18/18 07:45: Sodium 129 L, Potassium 3.9, BUN 19 H, Creatinine 0.78, Glucose 155 H, Total Bilirubin 0.6, AST 21, ALT 25, Alkaline Phosphatase 128 H, Lipase 117 Assessment and Plan - Problems (Diagnosis) (1) Sepsis Current Visit: Yes Status: Acute (2) Hyponatremia Onset Date: 07/08/16 Current Visit: No Status: Acute (3) COPD (chronic obstructive pulmonary disease) Onset Date: 06/03/17 Current Visit: No Status: Chronic Qualifiers: COPD type: chronic bronchitis Chronic bronchitis type: unspecified Qualified Code(s): J42 - Unspecified chronic bronchitis (4) Coronary artery disease Onset Date: 06/03/17 Current Visit: No Status: Chronic Qualifiers: (5) Depression with anxiety Onset Date: 06/03/17 Current Visit: No Status: Chronic (6) Hyperlipidemia Onset Date: 06/03/17 Current Visit: No Status: Chronic Qualifiers: (7) Hypertension Onset Date: 06/03/17 Current Visit: No Status: Chronic Qualifiers: Hypertension type: essential hypertension - Plan Admit patient to the floor. Start IV fluids To help correct hyponatremia Empiric antibiotics with vancomycin and cefepime as patient is septic. MRI of the head negative for any acute stroke at this time. Will need to speak to sister to give more history regarding baseline. Sister stated that she will be here tomorrow, will discuss that time. Unsure of code status as unable to get any history from patient. Difficult to discuss with sister via telephone. Will discuss tomorrow in person. - Advance Directives Does patient have a Living Will: No Does patient have a Durable POA for Healthcare: No Time Spent Managing Pts Care (In Minutes): 55
[2018-11-18] MEDS ORDERED: LEVALBUTEROL 0.63 MG/3 ML NEB IH PRN (18:13)
[2018-11-18] MEDS ORDERED: ALBUTEROL INHALER 60 PUFF/8 GM IH PRN (18:23)
[2018-11-18] MEDS ORDERED: POTASSIUM 25 MEQ EFFERV TAB PO ONE (20:00)
[2018-11-18] MEDS ORDERED: HOME MED 1 EA UNK (Simvastatin [Simvastatin] 20 MG) PO SCH (21:00)
[2018-11-18] MEDS ORDERED: VANCOMYCIN 1.5 GM in NA CHLORIDE 0.9% 500 ML IVPB SCH (21:00)
[2018-11-18] MEDS: GABAPENTIN 100 MG CAP PO SCH (21:08)
[2018-11-18] MEDS: ATORVASTATIN 10 MG TAB PO SCH (21:09)
[2018-11-19 07:03] LABS: Absolute Lymphocytes (CBC) 1.7 K/uL (0.7-4.9); Absolute Monocytes 1.9 K/uL (0.1-1.3); Absolute Neutrophil 10.7 K/uL (1.8-8.0); Basophils % 0.3 % (0-1.3); Eosinophils % 0.1 % (0-4.4); Hematocrit 39.5 % (36.0-45.0); Lymphocytes % 11.8 % (15.3-44.8); MPV 6.9 fL (7.6-11.3); Monocytes % 13.5 % (3.3-12.3); RBC Red Blood Cell Count 4.16 M/uL (3.86-4.86)
[2018-11-19 07:52] LABS: Albumin 4.3 g/dL (3.4-5.0); Bilirubin Total 0.9 mg/dL (0.2-1.0); Potassium 3.6 mmol/L (3.5-5.1); Protein, Total 7.5 g/dL (6.4-8.2)
[2018-11-19] MEDS ORDERED: ATENOLOL 50 MG TAB PO SCH (09:00)
[2018-11-19] MEDS ORDERED: HOME MED 1 EA UNK (Omeprazole [Prilosec] 40 MG) PO SCH (09:00)
[2018-11-19] MEDS ORDERED: AMLODIPINE 5 MG TAB PO SCH (09:00)
[2018-11-19] MEDS ORDERED: CEFEPIME 1 GM/VIAL IV SCH (09:00)
--- NOTE | 2018-11-19 09:26 | EKG ---
Test Date: 2018-11-18 Test Time: 06:28:05 Batch Mixer Operator: ANGEL MEASUREMENT RESULTS: Intervals: Rate: 105 TX: 160 QRSD: 82 QT: 332 QTc: 438 [place]: P: 74 TX: 160 QRS: 78 T: -14 INTERPRETIVE STATEMENTS: Sinus tachycardia Left ventricular hypertrophy with repolarization abnormality Abnormal ECG Compared to ECG 05/17/2018 17:16:10 Early repolarization now present Sinus rhythm no longer present Electronically Signed On 11-19-18 09:22:18 CDT by Bill Velez
[2018-11-19] MEDS: FLUOXETINE 20 MG CAP PO SCH (10:21)
[2018-11-19] MEDS: CEFEPIME/SWI 1gm 10 ML IVP SCH (10:22)
[2018-11-19] MEDS: GABAPENTIN 100 MG CAP PO SCH ×2 (10:22→20:26)
[2018-11-19] MEDS: PANTOPRAZOLE 40MG TABLET PO SCH (10:22)
[2018-11-19] MEDS: QUETIAPINE 100MG TAB PO SCH (10:22)
[2018-11-19 13:31] LABS: Magnesium 1.8 mg/dL (1.8-2.4); Phosphorus 2.5 mg/dL (2.5-4.9)
[2018-11-19] MEDS ORDERED: MAGNESIUM SULFATE 1 gm IVPB 1 GM/100 ML BAG IV ONE (14:00)
[2018-11-19] MEDS ORDERED: POTASSIUM PHOS IN 0.9 % NACL 15 MMOL/250 ML BAG IV ONE (15:00)
[2018-11-19] MEDS ORDERED: NA CHLORIDE 0.9% 100 ML ONE (15:02)
--- NOTE | 2018-11-19 17:31 | P.PN ---
Subjective Date of Service: 11/19/18 Chief Complaint: Altered Mental status Subjective: Improving Patient seen and examined at bedside. No family at bedside. Chart reviewed and case discussed with nursing staff. Patient awake and alert this morning. Able to hold a conversation with me. She states that she has fallen multiple times, though is not sure of the details. Seems to have a history of dementia, unable to really tell me her past medical history or medications. Unable to really tell me why she is in the hospital. Though she is oriented x3. States she has not been eating anything, this is a picky eater. She does not want to try anything else. She lives with her sister Review of Systems 10-point ROS is otherwise unremarkable Physical Examination - Vital Signs Temperature: 96.3 F Blood Pressure: 172/83 Pulse: 81 Respirations: 18 Pulse Ox (%): 95 - Physical Exam General: Alert, In no apparent distress, Oriented x3, Cachectic, Other (Elderly , frail) HEENT: Atraumatic, PERRLA, EOMI Neck: Supple, JVD not distended Respiratory: Clear to auscultation bilaterally, Normal air movement Cardiovascular: Regular rate/rhythm, Normal S1 S2 Gastrointestinal: Normal bowel sounds, No tenderness Musculoskeletal: No tenderness Integumentary: No rashes Neurological: Normal speech, Normal tone, Normal affect Lymphatics: No axilla or inguinal lymphadenopathy Assessment And Plan - Current Problems (Diagnosis) (1) Sepsis Current Visit: Yes Status: Acute (2) Hyponatremia Onset Date: 07/08/16 Current Visit: No Status: Acute (3) COPD (chronic obstructive pulmonary disease) Onset Date: 06/03/17 Current Visit: No Status: Chronic Qualifiers: COPD type: chronic bronchitis Chronic bronchitis type: unspecified Qualified Code(s): J42 - Unspecified chronic bronchitis (4) Coronary artery disease Onset Date: 06/03/17 Current Visit: No Status: Chronic Qualifiers: (5) Depression with anxiety Onset Date: 06/03/17 Current Visit: No Status: Chronic (6) Hyperlipidemia Onset Date: 06/03/17 Current Visit: No Status: Chronic Qualifiers: (7) Hypertension Onset Date: 06/03/17 Current Visit: No Status: Chronic Qualifiers: Hypertension type: essential hypertension - Plan This is a 73-year-old female with: Sepsis Afebrile overnight, white count slightly improved, stable. Continues to be on antibiotics Will continue to monitor Cultures pending Hyponatremia Improving with IV fluids. We will continue IV fluids Altered mental status Improved back to baseline. Coronary artery disease Hypertension Stable, will continue home medications Depression with anxiety Hyperlipidemia Debility Patient lives with her sister, who was as elderly S patient. Unsure if she would be safe discharge to go back there. May benefit from a facility placement for short-term. Will get physical therapy to evaluate. Will get social work involved Had discussion regarding code status with patient as she is now alert oriented x3. Patient said that she is not sure and would have to discuss it with her daughter who lives in [place]. DVT prophylaxis: Lovenox GI prophylaxis: None Diet: Regular Disposition: Pending symptomatic improvement.
[2018-11-19] MEDS: D5LR 1,000 ML IV SCH (17:49)
[2018-11-19] MEDS: ATORVASTATIN 10 MG TAB PO SCH (20:26)
[2018-11-19] MEDS: ENSURE ENLIVE 237 ML CAN PO SCH (20:26)
[2018-11-19] MEDS: VANCOMYCIN 750 MG in NA CHLORIDE 0.9% 150 ML IVPB SCH (23:37)
[2018-11-20] MEDS: D5LR 1,000 ML IV SCH ×3 (00:47→21:13)
[2018-11-20 06:56] LABS: Magnesium 1.7 mg/dL (1.8-2.4); Phosphorus 3.3 mg/dL (2.5-4.9)
[2018-11-20 06:59] LABS: Potassium 2.8 mmol/L (3.5-5.1)
[2018-11-20] MEDS: ATENOLOL 50 MG TAB PO SCH (08:01)
[2018-11-20] MEDS: AMLODIPINE 5 MG TAB PO SCH (08:01)
[2018-11-20] MEDS: PANTOPRAZOLE 40MG TABLET PO SCH (08:06)
[2018-11-20] MEDS: GABAPENTIN 100 MG CAP PO SCH ×2 (08:06→21:00)
[2018-11-20] MEDS: QUETIAPINE 100MG TAB PO SCH (08:06)
[2018-11-20] MEDS: FLUOXETINE 20 MG CAP PO SCH (08:06)
[2018-11-20] MEDS: KCL 20 MEQ/100 mL IVPB 20 MEQ/100 ML BAG IV SCH ×2 (08:07→11:13)
[2018-11-20] MEDS: CEFEPIME/SWI 1gm 10 ML IVP SCH (08:07)
[2018-11-20] MEDS: ENSURE ENLIVE 237 ML CAN PO SCH ×2 (08:08→21:00)
[2018-11-20] MEDS ORDERED: MAGNESIUM SULFATE 1 gm IVPB 1 GM/100 ML BAG IV ONE (09:00)
[2018-11-20] MEDS ORDERED: HYDRALAZINE HCL 20 MG/ML VIAL IV ONE (10:02)
[2018-11-20 11:46] LABS: Absolute Lymphocytes (CBC) 0.6 K/uL (0.7-4.9); Absolute Monocytes 1.1 K/uL (0.1-1.3); Basophils % 0.1 % (0-1.3); Eosinophils % 0.1 % (0-4.4); Hematocrit 35.7 % (36.0-45.0); Lymphocytes % 4.3 % (15.3-44.8); MPV 6.8 fL (7.6-11.3); Monocytes % 7.4 % (3.3-12.3); RBC Red Blood Cell Count 3.79 M/uL (3.86-4.86)
[2018-11-20 12:02] LABS: Albumin 4.2 g/dL (3.4-5.0); Bilirubin Total 0.8 mg/dL (0.2-1.0); Potassium 3.9 mmol/L (3.5-5.1); Protein, Total 7.3 g/dL (6.4-8.2)
--- NOTE | 2018-11-20 12:25 | EKG ---
Test Date: 2018-11-20 Test Time: 06:18:10 Hide Trimmer: RT-O MEASUREMENT RESULTS: Intervals: Rate: 100 CO: 196 QRSD: 82 QT: 358 QTc: 461 [place]: P: 59 CO: 196 QRS: 109 T: -87 INTERPRETIVE STATEMENTS: Normal sinus rhythm Rightward axis Left ventricular hypertrophy with repolarization abnormality Abnormal ECG Compared to ECG 11/18/2018 06:28:05 Right-axis deviation now present Sinus tachycardia no longer present Electronically Signed On 11-20-18 12:24:07 CDT by Bill Velez
[2018-11-20] MEDS: LORAZEPAM 0.5 MG TABLET PO SCH ×3 (12:31→21:00)
[2018-11-20] MEDS ORDERED: levETIRAcetam 500 MG in NA CHLORIDE 0.9% 100 ML IV ONE (15:00)
[2018-11-20] MEDS ORDERED: THIAMINE 200 MG/2 ML INJ IVP ONE (16:00)
--- NOTE | 2018-11-20 18:11 | CON ---
Reason: Possible seizures. History: A 73-year-old lady with multiple medical problems; COPD; chronic pain; chronic anxiety, on multiple medications; coronary artery disease, brought to the emergency department with confusion and apparent fall since she has ecchymoses on the knee, back of her occipital region and periorbital reg ion on the right. Sodium slightly low on admission. Brain MRI normal. CT scan of the brain, normal for an age. Is being admitted. Sodium has not really improved and she has had several episodes priti racterized by tonic extension of all 4 extremities and then tonic flexion of all 4 extremities with p upillary dilation consistent with seizure. Last 1 was brought under control with some lorazepam. Th e patient still is not quite to baseline. White count , she is on vancomycin. Creatinine is normal. Sodium still 128. Liver function tests normal. Lactic acid of 9.6, on admission down to 1.1 yesterday. Consultation requested. Past Medical History: As alluded to. Medications: Routine home medications are extensive. Seroquel, meloxicam, Flexeril, simvastatin, Bu Spar, atenolol, baclofen, Antivert, Ativan, gabapentin, Klonopin, Prozac, Norvasc, trazodone, and ome prazole. Allergies: CODEINE, PENICILLIN, ERYTHROMYCIN, BENADRYL, ADHESIVE TAPE. Social History: She lives with her sisters. Smokes. Drinks. Normally is able to ambulate. Review of Systems: Not properly obtainable only as alluded to. Physical Examination: Vital Signs: 97.9, 97, 20, 137/84. Sats 98%. She was quite hypertensive on admission. General: She is a thin lady, lying in bed, in no distress. Follows commands, but has echolalia and will perseverate. HEENT: Pupils reactive. Ocular motion full. [place] full. Face symmetric. Tongue midline. Soft p alate elevates bilaterally. Neck: Supple. Carotid bruit on the right. Neurologic: Sensation intact to pain. Reflexes 1/4. Toes are downgoing. Cerebellar exam demonstra sumeet no ataxia. Gait not tested. Impression: Probable new onset seizures. Plan: Keppra, continuing that intravenously is reasonable given the descriptor, but admin ister IV thiamine as well. EEG is pending. Check a carotid Doppler given the bruit on physical exam . We will continue to follow with you. PAM/JAMILA Voice ID: [id number] Report ID: [id number]
[2018-11-20] MEDS: ATORVASTATIN 10 MG TAB PO SCH (21:00)
--- NOTE | 2018-11-20 21:31 | P.PN ---
Subjective Date of Service: 11/20/18 Chief Complaint: Altered Mental status Patient seen and examined at bedside. No family at bedside. Chart reviewed and case discussed with nursing staff. Patient with multiple tonic clonic episodes this am. Last for a few seconds. Patient seems to be confused afterwards. At the time of my exam, awake but confused. Not talking and not really following most commands. Review of Systems 10-point ROS is otherwise unremarkable Physical Examination - Vital Signs Temperature: 97.9 F Blood Pressure: 119/66 Pulse: 75 Respirations: 20 Pulse Ox (%): 99 - Physical Exam General: In no apparent distress, Confused, Other (Not verbally responsive though will shake head and look when called. ) Neck: JVD not distended, Bruit Respiratory: Clear to auscultation bilaterally, Normal air movement Cardiovascular: Normal S1 S2, Irregular heart rate/rhythm Gastrointestinal: Normal bowel sounds, No tenderness Musculoskeletal: No clubbing Integumentary: Other (echymoses) Neurological: Other (unable to follow commands mostly) Assessment And Plan - Current Problems (Diagnosis) (1) Sepsis Current Visit: Yes Status: Acute (2) Hyponatremia Onset Date: 07/08/16 Current Visit: No Status: Acute (3) COPD (chronic obstructive pulmonary disease) Onset Date: 06/03/17 Current Visit: No Status: Chronic Qualifiers: COPD type: chronic bronchitis Chronic bronchitis type: unspecified Qualified Code(s): J42 - Unspecified chronic bronchitis (4) Coronary artery disease Onset Date: 06/03/17 Current Visit: No Status: Chronic Qualifiers: (5) Depression with anxiety Onset Date: 06/03/17 Current Visit: No Status: Chronic (6) Hyperlipidemia Onset Date: 06/03/17 Current Visit: No Status: Chronic Qualifiers: (7) Hypertension Onset Date: 06/03/17 Current Visit: No Status: Chronic Qualifiers: Hypertension type: essential hypertension - Plan This is a 73-year-old female with: Sepsis Afebrile overnight, white count slightly improved, stable. Continues to be on antibiotics Will continue to monitor Cultures pending Tonic clonic episodes Possible new onset seizures. Patient seems to be on multiple pain medications at home, including two benzodiazepenes. UDS on admission was negative for benzos, unsure if patient starting to withdraw. Also noted a hx of alcohol abuse, though patient unable to tell me much about hx. Unsure if alcohol withdrawal seizures. bruit on physical exam, unsure if cardiac involvement. Will get carotid ultrasound, EEG. Neuro consult. Case discussed in person with Dr. Del Cid. He was nice enough to see patient, Recommendations really appreciated. Restart Ativan (IV) and start keprra at this time. Hyponatremia Improving with IV fluids. We will continue IV fluids Coronary artery disease Hypertension Stable, will continue home medications Depression with anxiety Hyperlipidemia Debility Patient lives with her sister, who was as elderly S patient. Unsure if she would be safe discharge to go back there. May benefit from a facility placement for short-term. Will get physical therapy to evaluate. Will get social work involved Had discussion regarding code status with patient as she is now alert oriented x3. Patient said that she is not sure and would have to discuss it with her daughter who lives in [place]. Unable to get in touch with daughter, will attempt again. DVT prophylaxis: Lovenox GI prophylaxis: None Diet: Regular Disposition: Pending symptomatic improvement. May consider ICU bed if pt worsening. No ICU beds available at this time.
[2018-11-20] MEDS: levETIRAcetam 500 MG in NA CHLORIDE 0.9% 100 ML IV SCH (23:10)
[2018-11-21 05:03] LABS: Magnesium 2.2 mg/dL (1.8-2.4); Potassium 3.3 mmol/L (3.5-5.1)
[2018-11-21] MEDS ORDERED: POTASSIUM 25 MEQ EFFERV TAB PO ONE (06:09)
[2018-11-21] MEDS: D5LR 1,000 ML IV SCH ×2 (06:39→21:55)
[2018-11-21] MEDS: FLUOXETINE 20 MG CAP PO SCH (08:26)
[2018-11-21] MEDS: PANTOPRAZOLE 40MG TABLET PO SCH (08:26)
[2018-11-21] MEDS: GABAPENTIN 100 MG CAP PO SCH ×2 (08:27→20:13)
[2018-11-21] MEDS: QUETIAPINE 100MG TAB PO SCH (08:27)
[2018-11-21] MEDS: ATENOLOL 50 MG TAB PO SCH (08:27)
[2018-11-21] MEDS: LORAZEPAM 0.5 MG TABLET PO SCH ×3 (08:28→20:13)
[2018-11-21] MEDS: AMLODIPINE 5 MG TAB PO SCH (08:28)
[2018-11-21] MEDS: levETIRAcetam 500 MG in NA CHLORIDE 0.9% 100 ML IV SCH ×3 (08:29→21:54)
[2018-11-21] MEDS: ENSURE ENLIVE 237 ML CAN PO SCH ×2 (08:29→20:13)
[2018-11-21] MEDS: CEFEPIME/SWI 1gm 10 ML IVP SCH ×2 (08:30→13:01)
[2018-11-21] MEDS: THIAMINE 200 MG/2 ML INJ IVP SCH ×2 (08:36→13:02)
[2018-11-21] MEDS ORDERED: ALBUTEROL INHALER 60 PUFF/8 GM IH PRN (09:00)
--- NOTE | 2018-11-21 12:21 | EKG ---
Test Date: 2018-11-20 Test Time: 12:12:56 Cellophane Bath Mixer: NIURKA MEASUREMENT RESULTS: Intervals: Rate: 85 SD: 160 QRSD: 76 QT: 364 QTc: 433 Lester: P: 18 SD: 160 QRS: 72 T: 74 INTERPRETIVE STATEMENTS: Normal sinus rhythm Normal ECG Compared to ECG 11/20/2018 06:18:10 Right-axis deviation no longer present Left ventricular hypertrophy no longer present Early repolarization no longer present Electronically Signed On 11-21-18 12:20:52 CDT by Kee Haile
[2018-11-21] MEDS: VANCOMYCIN 750 MG in NA CHLORIDE 0.9% 150 ML IVPB SCH (14:24)
--- NOTE | 2018-11-21 17:14 | P.PN ---
Subjective Date of Service: 11/21/18 Chief Complaint: Altered Mental status Patient seen and examined at bedside. No family at bedside. Chart reviewed and case discussed with nursing staff. Patient without any witnessed seizures overnight. Patient seems to be more awake, though still seems to have waxing and waning mentation. Talking more, though sometimes not making sense. Able to follow some more commands than yesterday Review of Systems 10-point ROS is otherwise unremarkable Physical Examination - Vital Signs Temperature: 98.1 F Blood Pressure: 90/63 Pulse: 78 Respirations: 20 Pulse Ox (%): 99 - Physical Exam General: In no apparent distress, Confused HEENT: Atraumatic, PERRLA, EOMI Neck: Supple, JVD not distended Respiratory: Clear to auscultation bilaterally, Normal air movement Cardiovascular: Regular rate/rhythm, Normal S1 S2 Gastrointestinal: Normal bowel sounds, No tenderness Musculoskeletal: No tenderness Integumentary: No rashes Neurological: Normal speech, Normal tone, Normal affect Assessment And Plan - Current Problems (Diagnosis) (1) Sepsis Current Visit: Yes Status: Acute (2) Hyponatremia Onset Date: 07/08/16 Current Visit: No Status: Acute (3) COPD (chronic obstructive pulmonary disease) Onset Date: 06/03/17 Current Visit: No Status: Chronic Qualifiers: COPD type: chronic bronchitis Chronic bronchitis type: unspecified Qualified Code(s): J42 - Unspecified chronic bronchitis (4) Coronary artery disease Onset Date: 06/03/17 Current Visit: No Status: Chronic Qualifiers: (5) Depression with anxiety Onset Date: 06/03/17 Current Visit: No Status: Chronic (6) Hyperlipidemia Onset Date: 06/03/17 Current Visit: No Status: Chronic Qualifiers: (7) Hypertension Onset Date: 06/03/17 Current Visit: No Status: Chronic Qualifiers: Hypertension type: essential hypertension - Plan This is a 73-year-old female with: Sepsis Afebrile overnight, white count slightly improved, stable. Continues to be on antibiotics Will continue to monitor Cultures pending Tonic clonic episodes Possible new onset seizures. Patient seems to be on multiple pain medications at home, including two benzodiazepenes. UDS on admission was negative for benzos, unsure if patient starting to withdraw. Also noted a hx of alcohol abuse, though patient unable to tell me much about hx. Unsure if alcohol withdrawal seizures. bruit on physical exam, unsure if cardiac involvement. Will get carotid ultrasound, EEG. Pending Neuro consult. Case discussed in person with Dr. Del Cid. He was nice enough to see patient even though he was not on-call, Recommendations really appreciated. Restart Ativan (IV) and continue keprra at this time. Hyponatremia Improving with IV fluids. We will continue IV fluids Coronary artery disease Hypertension Stable, will continue home medications Depression with anxiety Hyperlipidemia Debility Patient lives with her sister, who was as elderly S patient. Unsure if she would be safe discharge to go back there. May benefit from a facility placement for short-term. Will get physical therapy to evaluate. Will get social work involved Had discussion regarding code status with patient when she was alert oriented x3. Patient said that she is not sure and would have to discuss it with her daughter who lives in [place]. Unable to get in touch with daughter, will attempt again. DVT prophylaxis: Lovenox GI prophylaxis: None Diet: Regular Disposition: Pending symptomatic improvement. May consider ICU bed if pt worsening. No ICU beds available at this time.
--- NOTE | 2018-11-21 19:30 | RAD REPORT ---
EXAM DESCRIPTION: US - CP - 11/21/2018 6:19 pm CLINICAL HISTORY: Bruit COMPARISON: Carotid Artery Bilateral dated 04/04/2018Carotid Artery Bilateral dated 04/04/2018; Brain Wo Cont dated 11/18/2018 TECHNIQUE: Real-time sonographic evaluation of both carotid systems was performed. Doppler interroga tion was performed with waveform tracing bilaterally. FINDINGS: Normal high resistance waveforms are noted in both external carotid arteries. The common c arotid arteries and internal carotid arteries show normal low resistance waveforms. Mild to moderate areas of hard plaquing are seen involving right carotid bulb and the right mid commo n carotid artery. Multifocal left common carotid artery hard plaquing also seen. Focal hard plaque is present involving the left carotid bulb resulting in 50-70% stenosis based on NASCET criteria. Peak systolic velocity is elevated in the proximal left ICA to 209 cm/second. Antegrade flow seen in both vertebral arteries. IMPRESSION: Moderate hard plaquing involving the proximal left ICA noted. 50-70% stenosis left carotid bulb suspected based on NASCET criteria.
[2018-11-21] MEDS: ATORVASTATIN 10 MG TAB PO SCH (20:13)
--- NOTE | 2018-11-21 22:54 | PN ---
Date of Progress Note: 11/21/2018 Time: 1730. Reason: Seizures. Interval History: The patient is better today. She is awake. She is following commands. Vitals ar e stable. She is afebrile. Creatinine is stable. EEG demonstrates 7 hertz background with superimp osed 4-6 hertz slowing that is a nonspecific abnormality indicating diffuse cerebral dysfunction. It can be seen as a postictal finding. I think it is prudent to continue the Keppra and to maybe repea t the EEG on Wednesday. If she is still in the hospital, we would like to see a little improvement o n a followup EEG. I do not think this is her baseline. Carotid Doppler is still pending. Physical Examination: The patient is drowsy, arousable, can tell me her name. No further echolalia. Follows simple one-st ep command. Ocular motion is full. [place] full. Strength 4+. Sensation intact. Reflexes suppress ed. Toes are downgoing. Impression And Plan: New-onset seizures. The patient does not appear to be in acute alcohol withdra wal, although she does have a history of alcohol abuse. Continue thiamine. Continue IV Keppra. Gen eral supportive care. Consider repeating EEG on Wednesday if she is still on the hospital to gauge f or interval improvement and again evaluate for epileptiform abnormalities. We will continue to khurram livingston with you. CHRIS Voice ID: [id number] Report ID: [id number]
[2018-11-22] MEDS: THIAMINE 200 MG/2 ML INJ IVP SCH (08:55)
[2018-11-22] MEDS: CEFEPIME/SWI 1gm 10 ML IVP SCH (08:55)
[2018-11-22] MEDS: ATENOLOL 50 MG TAB PO SCH (08:56)
[2018-11-22] MEDS: AMLODIPINE 5 MG TAB PO SCH (08:57)
[2018-11-22] MEDS: GABAPENTIN 100 MG CAP PO SCH ×2 (08:58→20:07)
[2018-11-22] MEDS: LORAZEPAM 0.5 MG TABLET PO SCH ×3 (08:58→20:06)
[2018-11-22] MEDS: QUETIAPINE 100MG TAB PO SCH (08:59)
[2018-11-22] MEDS: FLUOXETINE 20 MG CAP PO SCH (08:59)
[2018-11-22] MEDS: PANTOPRAZOLE 40MG TABLET PO SCH (08:59)
[2018-11-22] MEDS: ENSURE ENLIVE 237 ML CAN PO SCH ×2 (09:00→20:08)
[2018-11-22] MEDS: levETIRAcetam 500 MG in NA CHLORIDE 0.9% 100 ML IV SCH (10:09)
--- NOTE | 2018-11-22 11:48 | EEG ---
CHART: [id number] TEST ID#: [id number] DATE OF STUDY: 11/21/2018 THE EEG WAS RECORDED PORTABLE IN THE PATIENTS ROOM ON A 17 CHANNEL MACHINE. ELECTRODES WERE APPLIED IN THE USUAL MANNER USING THE INTERNATIONAL 10-20 SYSTEM. THE WAKING BACKGROUND RHYTHM IN THIS RECORD CONSISTS OF POORLY DEVELOPED AND POORLY ORGANIZED WAVES OF 7 HZ., MAXIMAL IN THE POSTERIOR HEAD REGIONS WHICH ATTENUATE NORMALLY WITH EYE OPENING. ADMIXED AND SUPERIMPOSED SLOE WAVES OF 4-6 HZ ARE MPTED IN A SHIFTING DISTRIBUTION. THERE ARE NO FOCAL OR LATERALIZING FEATURES. NO EPILEPTIFORM ACTIVITY APPEARS. SLEEP DID NOT OCCUR. HYPERVENTILATION WAS NOT PERFORMED. PHOTIC STIMULATION PRODUCED POOR DRIVING BILATERALLY. IMPRESSION: ABNORMAL EEG BECAUSE OF GENERALIZED AND EXCESSIVE SLOWING OF THE BACKGROUND. THE ABOVE INDICATES DIFFUSE CEREBRAL DYSFUNCTION.
[2018-11-22 11:59] LABS: Absolute Lymphocytes (CBC) 1.8 K/uL (0.7-4.9); Absolute Neutrophil 9.7 K/uL (1.8-8.0); Basophils % 0.5 % (0-1.3); Eosinophils % 1.8 % (0-4.4); Hematocrit 30.6 % (36.0-45.0); Lymphocytes % 13.8 % (15.3-44.8); MPV 6.8 fL (7.6-11.3); Monocytes % 7.6 % (3.3-12.3); RBC Red Blood Cell Count 3.16 M/uL (3.86-4.86)
[2018-11-22] MEDS: D5LR 1,000 ML IV SCH ×2 (13:20→20:38)
[2018-11-22] MEDS: ATORVASTATIN 10 MG TAB PO SCH (20:07)
--- NOTE | 2018-11-22 21:15 | PN ---
Date of Progress Note: 11/22/2018 Subjective: The patient is seen and examined. Chart reviewed and case discussed with RN. The patie nt is asking for regular diet and has been on pureed diet due to her seizure episodes and altered men kerri status. The patient had one episode of recurrent seizure. However since being on Keppra has not had any further episodes. Medications: List reviewed. Code Status: Full code. Physical Examination: Vital Signs: Temperature 98.3, heart rate 79, blood pressure 100/60, respirations 18, O2 of 97% on 3 L via nasal cannula. General: Awake, alert, oriented x3. Elderly female, not in any acute distress. CV: S1, S2. Regular rate and rhythm. Peripheral pulses present. Respiratory: Moving air well bilaterally. No wheezing or stridor. Gastrointestinal: Abdomen is soft, nontender, nondistended. Positive bowel sounds. Extremities: No clubbing, cyanosis, or edema. Neuro: Cranial nerves 2-12 intact grossly. No focal neurological deficits. Speech is normal. Skin: No rashes. Normal skin turgor. Laboratory Data: WBC 12.8, H and H 10.2 and 30.6, platelets 488, neutrophils 76%. Blood cultures no growth to date. Assessment And Plan: A 73-year-old female with: 1.Sepsis, unclear etiology. White count is trending down. The patient is afebrile. Sepsis seems t o have resolved on my examination. 2.Chronic seizure, new onset. The patient is on IV Keppra. May have been possible withdrawal from benzodiazepine. Does not appear to be alcohol withdrawal seizures per Neurology. Appreciate Dr. Moody carney's input. EEG has been done. May need repeat EEG in a.m. The EEG showed abnormal findings of exce ssive and generalized slowing of the background, above indicates diffuse cerebral dysfunction. We wi ll use Ativan p.r.n. 3.Hyponatremia, improving. We will continue IV fluids. 4.Coronary artery disease [place] artery, [place] heart without angina. Stable. 5.Essential hypertension. Blood pressure medications have been resumed as appropriate. 6.Depression with anxiety. 7.Hyperlipidemia. 8.Disuse myopathy and debility. We will have the patient work with PT and the patient may benefit f rom halfway facility versus rehab placement. Talking to the sister who is also ill, the tara ent's sister feels that they would be unable to take care of her at home and this may be an unsafe di scharge. The patient at this point is open to the idea of halfway facility for now. We will obtain PT evaluation. 9.Deep vein thrombosis prophylaxis with Lovenox. DARIUSZ Voice ID: [id number] Report ID: [id number]
[2018-11-22] MEDS: levETIRAcetam 500 MG TAB PO SCH (22:32)
[2018-11-22] MEDS: VANCOMYCIN 750 MG in NA CHLORIDE 0.9% 150 ML IVPB SCH (22:35)
[2018-11-23 05:00] LABS: Absolute Lymphocytes (CBC) 1.8 K/uL (0.7-4.9); Absolute Neutrophil 8.1 K/uL (1.8-8.0); Basophils % 0.9 % (0-1.3); Eosinophils % 3.9 % (0-4.4); Lymphocytes % 15.6 % (15.3-44.8); MPV 7.1 fL (7.6-11.3); Monocytes % 9.1 % (3.3-12.3); RBC Red Blood Cell Count 3.25 M/uL (3.86-4.86)
[2018-11-23 05:26] LABS: ALT/SGPT 18 U/L (12-78); AST/SGOT 20 U/L (15-37); Albumin 3.2 g/dL (3.4-5.0); Alkaline Phosphatase 96 U/L (45-117); BUN Blood Urea Nitrogen 7 mg/dL (7-18); Bicarbonate 34 mmol/L (21-32); Bilirubin Total 0.5 mg/dL (0.2-1.0); Glucose Level 94 mg/dL (74-106); Potassium 3.8 mmol/L (3.5-5.1); Sodium Level 136 mmol/L (136-145)
[2018-11-23] MEDS: D5LR 1,000 ML IV SCH (07:08)
--- NOTE | 2018-11-23 08:07 | PN ---
Reason: Seizures. Interval History: The patient seems back to baseline, wants to go home, complaining about the food i n the hospital. Awake, alert, lucid, following commands. Doppler, 50% to 70% stenosis on the left. The patient is still on oxygen, seems imprudent to send her home without knowing if she will need curran pplemental oxygen. I think those problems can be sorted out overnight and through the day tomorrow. We will change the Keppra from IV to p.o. We will order a repeat EEG for tomorrow. If she declines to have the study, then that is her prerogative. She seems capable of understanding risks and benef its of refusing procedures at this point in time. Physical Examination: She is awake, alert, oriented. Pupils reactive. Ocular motion full. [place] full. Face symmetric. Strength full. Sensation intact. Reflexes symmetric. Gait not tested. The patient normally needs a walker to ambulate. Impression: New-onset seizures, likely from combination of polypharmacy withdrawal and underlying is chemic vascular disease. Plan: Change Keppra to p.o. PT evaluation. Wean oxygen to off. Aspirin daily. Thank you for the consult. PAM/JAMILA Voice ID: [id number] Report ID: [id number]
[2018-11-23] MEDS: ASPIRIN EC 81 MG TAB PO SCH (08:49)
[2018-11-23] MEDS: LORAZEPAM 0.5 MG TABLET PO SCH ×3 (08:50→22:33)
[2018-11-23] MEDS: PANTOPRAZOLE 40MG TABLET PO SCH (08:50)
[2018-11-23] MEDS: ATENOLOL 50 MG TAB PO SCH (08:50)
[2018-11-23] MEDS: AMLODIPINE 5 MG TAB PO SCH (08:50)
[2018-11-23] MEDS: GABAPENTIN 100 MG CAP PO SCH ×2 (08:51→22:50)
[2018-11-23] MEDS: FLUOXETINE 20 MG CAP PO SCH (08:51)
[2018-11-23] MEDS: levETIRAcetam 500 MG TAB PO SCH ×2 (08:51→22:33)
[2018-11-23] MEDS: QUETIAPINE 100MG TAB PO SCH (08:51)
[2018-11-23] MEDS: ENSURE ENLIVE 237 ML CAN PO SCH ×2 (08:52→21:00)
[2018-11-23] MEDS: THIAMINE 200 MG/2 ML INJ IVP SCH (08:54)
[2018-11-23] MEDS: CEFEPIME/SWI 1gm 10 ML IVP SCH (08:58)
[2018-11-23] MEDS ORDERED: POTASSIUM CL SA 10 MEQ TAB PO ONE (09:00)
--- NOTE | 2018-11-23 22:20 | PN ---
Date of Progress Note: 11/23/2018 Subjective: The patient is seen and examined. Chart reviewed and case discussed with RN. The patie nt seems to be doing better. No further seizure episodes. Medications: List reviewed. Physical Examination: Vital Signs: Temperature 97, heart rate 83, blood pressure 93/64, respirations 19, O2 98% on room ai r. General: Awake, alert, oriented x3. Elderly female, frail, cachectic. BMI is 16. CV: S1, S2. Regular rate and rhythm. Peripheral pulses present. Respiratory: Moving air well bilaterally. No wheezing. No stridor. Gastrointestinal: Abdomen is soft, nontender, nondistended. Positive bowel sounds. Extremities: No clubbing, cyanosis, or edema. Neuro: Nonfocal. Laboratory Data: Sodium 136, potassium 3.8, chloride 98, CO2 34, BUN 7, creatinine 0.56, glucose 94, calcium 8.3, albumin 3.2. WBC 11.5, H and H 10.9 and 31, platelets 524, neutrophils 70%. Blood cul tures, no growth to date. Repeat EEG is pending. Assessment: A 73-year-old female with: 1.Sepsis, unclear etiology, trending down. Blood cultures negative. We will discontinue vancomycin . 2.Clonic seizure episode, new onset. Keppra has been switched to p.o. No further episodes. Repeat EEG done today. We will await results prior to releasing the patient. We will discuss further with Dr. Del Cid. 3.Hyponatremia, improved. 4.Coronary artery disease, [place] artery, [place] heart without angina. 5.Essential hypertension, stable. 6.Depression with anxiety, stable. 7.Hyperlipidemia. Continue home medications. 8.Disuse myopathy and debility. The patient still refusing to go to usp facility. Fly aguillon wants the patient to go to SNF. The patient lives with her sister who is also disabled, and sis ter stated that she is unable to take care of the patient. The patient states that she rather be wit h her dogs and does not wish to go to the nursing facility as she will be unable to get her pets ther e. 9.Deep vein thrombosis prophylaxis addressed with Lovenox. Plan: Follow up on repeat EEG. If cleared by Neurology standpoint, then we will discuss further dis charge options. The patient understands that she is not a safe discharge home. She would benefit fr om usp facility placement. She has agreed to home health with PT. For now, we will cont inue to monitor. Daughter states that she wants to appeal the discharge. We will have Case Manageme nt contact family. DARIUSZ Voice ID: [id number] Report ID: [id number]
[2018-11-23] MEDS: ATORVASTATIN 10 MG TAB PO SCH (22:33)
[2018-11-23] MEDS: MUPIROCIN 2% OINT 22GM TUBE TOP SCH (22:33)
[2018-11-23] MEDS ORDERED: VANCOMYCIN 750 MG in NA CHLORIDE 0.9% 150 ML IVPB SCH (23:00)
[2018-11-24] MEDS: D5LR 1,000 ML IV SCH (04:26)
[2018-11-24 04:46] LABS: Absolute Lymphocytes (CBC) 1.3 K/uL (0.7-4.9); Absolute Monocytes 0.9 K/uL (0.1-1.3); Absolute Neutrophil 7.4 K/uL (1.8-8.0); Basophils % 0.8 % (0-1.3); Eosinophils % 4.3 % (0-4.4); Hematocrit 32.5 % (36.0-45.0); MPV 6.9 fL (7.6-11.3); Monocytes % 8.8 % (3.3-12.3); RBC Red Blood Cell Count 3.37 M/uL (3.86-4.86)
[2018-11-24 05:05] LABS: BUN Blood Urea Nitrogen 6 mg/dL (7-18); Bicarbonate 32 mmol/L (21-32); Glucose Level 94 mg/dL (74-106); Potassium 3.9 mmol/L (3.5-5.1); Sodium Level 137 mmol/L (136-145)
[2018-11-24] MEDS ORDERED: POTASSIUM 25 MEQ EFFERV TAB PO ONE (09:00)
[2018-11-24] MEDS: THIAMINE 200 MG/2 ML INJ IVP SCH (09:00)
[2018-11-24] MEDS: GABAPENTIN 100 MG CAP PO SCH (09:00)
[2018-11-24] MEDS: ASPIRIN EC 81 MG TAB PO SCH (09:00)
[2018-11-24] MEDS: CEFEPIME/SWI 1gm 10 ML IVP SCH (09:00)
[2018-11-24] MEDS: ENSURE ENLIVE 237 ML CAN PO SCH (09:00)
[2018-11-24] MEDS: ATENOLOL 50 MG TAB PO SCH (09:33)
[2018-11-24] MEDS: FLUOXETINE 20 MG CAP PO SCH (09:34)
[2018-11-24] MEDS: levETIRAcetam 500 MG TAB PO SCH (09:34)
[2018-11-24] MEDS: QUETIAPINE 100MG TAB PO SCH (09:34)
[2018-11-24] MEDS: AMLODIPINE 5 MG TAB PO SCH (09:34)
[2018-11-24] MEDS: PANTOPRAZOLE 40MG TABLET PO SCH (09:34)
[2018-11-24] MEDS: LORAZEPAM 0.5 MG TABLET PO SCH (09:34)
[2018-11-24] MEDS: MUPIROCIN 2% OINT 22GM TUBE TOP SCH (09:37)
[2018-11-24 10:01] VITALS: O2SAT 92
[2018-11-24 12:08] VITALS: BP 105/61; TEMP 98.3
--- NOTE | 2018-11-25 02:40 | DS ---
Date of Discharge: 11/24/2018 Sales Development Manager: Dr. Del Cid with Neurology. Procedures: EEG on 11/21/2018 and 11/23/2018. Repeat EEG was negative for any acute seizure activit y. Initial EEG showed abnormal EEG because generalized and excessive slowing of the background indic ates diffuse cerebral dysfunction. Admitting Diagnoses: 1.Sepsis. 2.Hyponatremia. 3.COPD, chronic bronchitis. 4.Coronary artery disease, [place] artery and [place] heart without angina. 5.Depression with anxiety. 6.Hyperlipidemia. 7.Essential hypertension. Discharge Diagnoses: 1.Sepsis, ruled out. 2.Tonic-clonic seizure episode, new onset, likely due to withdrawal from multiple substance abuse an d alcohol abuse. 3.Hypokalemia, corrected. 4.Hyponatremia, corrected. 5.Coronary artery disease, [place] artery and [place] heart without angina, stable. 6.Essential hypertension, stable. 7.Depression with anxiety, stable. 8.Hyperlipidemia, mixed, stable. 9.Disuse myopathy and debility. 10.Normocytic normochromic anemia. 11.Carotid artery disease. 12.Scalp hematoma. 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 The patient had a sodium of 129. White count was elevated at 14.5. Lactate was elevated at 9.6. Chest x-ray showed fibrotic lung changes. Head CT was negative. MRI was also negative for any stroke. Her blood pressure was significantly elevated at 204/89. The patient was thought to be possibly withdrawing from her alcoho l and benzodiazepines. According to the daughter, the patient has history of being on chronic benzos and alcohol. The patient did have a seizure episodes and was started on IV Keppra. Dr. Del Cid with Neurology was consulted. Initial EEG showed diffuse cerebral slowing as mentioned above. Repeat EEG however was normal. She did well on Keppra, did not have any further seizures. Regarding her sepsi s, there was no source. Her blood cultures were negative. Most likely this was acute from her withd adrienne causing elevated blood pressure, elevated white count. The patient overall did well. She was then back to her baseline. She was very frail, cachectic with a BMI of 16. She has failure to thriv e. She lives with her sister who is also disabled and is not really able to take care of her. The p atient was recommended to go to longterm facility for rehab, however, the patient adamantly re fused. She is awake, alert, oriented x3, able to make her own decisions, understands the benefits an d risks involved with refusing SNF. The patient understands that if she does not go [facility] a [facility] or [facility], she is at risk of falling at home and she does have new onset seizures and ma y not have anybody at home to help her. She states that she is able to take care of herself. She lincoln s her sister with her. She says that she would rather be with her puppies and then go to skilled [facility] facility. I spoke with the daughter and let her know on multiple occasions that the patient is refusing longterm facility and unfortunately she makes her own decisions and cannot be forced to go to rehab. She understands the risks including falls, bleeding, hip fractures, brain bleed, and even and she again chooses not to go to longterm facility or rehab. The patient does a gree to home health, which was set up. The patient was then cleared from Neurology standpoint, and w as then discharged home with home health. The patient's discharge instructions include following up with primary care physician in 2-3 days, follow up with neurologist, Dr. Del Cid, in 2 weeks, return to ER for worsening condition, complete abstinence from alcohol. Diet: Heart healthy. Activity: Fall precautions. Ambulate with assist. Medications: As per medication reconciliation list. The patient does not require any antibiotics. Sepsis ruled out. No positive cultures. Physical Examination: General: Awake, alert, oriented x3. No acute distress. Frail, cachectic, elderly female. BMI 16. CV: S1, S2. Respiratory: Moving air well bilaterally. Abdomen: Soft, nontender, nondistended. Positive bowel sounds. Extremities: No clubbing, cyanosis, or edema. Neurologic: Nonfocal. Skin: The patient has multiple abrasions on her elbows and upper extremity. Total time spent discharging the patient was 42 minutes. /JAMILA Voice ID: [id number] Report ID: [id number]
--- NOTE | 2018-11-25 12:24 | EEG ---
CHART: [id number] TEST ID#: [id number] DATE OF STUDY: 11/23/2018 THE EEG WAS RECORDED PORTABLE IN THE PATIENTS ROOM ON A 17 CHANNEL MACHINE. ELECTRODES WERE APPLIED IN THE USUAL MANNER USING THE INTERNATIONAL 10-20 SYSTEM. THE WAKING BACKGROUND RHYTHM IN THIS RECORD CONSISTS OF FAIRLY WELL DEVELOPED AND FAIRLY WELL ORGANIZED WAVES OF UP TO 10 HZ., MAXIMAL IN THE POSTERIOR HEAD REGIONS WHICH ATTENUATE NORMALLY WITH EYE OPENING. IN DROWSINESS THE BACKGROUND DROPS TO 9 HZ. THERE ARE NO FOCAL OR LATERALIZING FEATURES. NO EPILEPTIFORM ACTIVITY APPEARS. SLEEP DID NOT OCCUR. HYPERVENTILATION WAS NOT PEFORMED. PHOTIC STIMULATION PRODUCED GOOD DRIVING BILATERALLY. IMPRESSION: NORMAL EEG FOR THE AGE OF THE PATIENT IN WAKE AND DROWSINESS. WHEN COMPARED WITH PATIENTS PRIOR EEG OF 11/21/2018, TODAYS DEMONSTRATES INTERVAL IMPROVEMENT.
== END 2018-11-24 14:28 | disposition home health service (06) | DRG 100 ==
LOC: ER 06:59 → ERHOLD 10:35 → 4TH 13:35
PROVIDERS: ADMIT Family Medicine; ATTEND Family Medicine
DX: G40.89 Other seizures (principal); E43 Unspecified severe protein-calorie malnutrition; F10.239 Alcohol dependence with withdrawal, unspecified; E87.1 Hypo-osmolality and hyponatremia; Z68.1 Body mass index [BMI] 19.9 or less, adult; T51.0X1A Toxic effect of ethanol, accidental (unintentional), initial encounter; F13.10 Sedative, hypnotic or anxiolytic abuse, uncomplicated; E87.6 Hypokalemia; I25.10 Atherosclerotic heart disease of native coronary artery without angina pectoris; I10 Essential (primary) hypertension; F41.8 Other specified anxiety disorders; E78.2 Mixed hyperlipidemia; G72.9 Myopathy, unspecified; D64.9 Anemia, unspecified; I77.89 Other specified disorders of arteries and arterioles; S00.03XA Contusion of scalp, initial encounter; X58.XXXA Exposure to other specified factors, initial encounter; Y92.9 Unspecified place or not applicable
CPT/HCPCS: 36415; 51702; 70450; 70551; 71045; 80048; 80053; 80076; 80202; 80307; 80320; 81003; 81015; 82550; 82553; 82962; 83605; 83690; 83735; 84100; 84132; 84145; 84484; 85025; 85610; 85730; 87040; 92526; 92610; 93005; 93880; 94760; 95816; 96365; 96367; 97162; 97530; 99285; J0360; J0692; J1953; J3370; J3411; J3475

== ENCOUNTER 2018-11-28 16:33 | Observation (INO) | payer OTHER ==
[2018-11-28] MEDS ORDERED: cloNIDine HCl 0.1 MG TAB ONE (17:17)
[2018-11-28 17:28] LABS: Absolute Lymphocytes (CBC) 1.6 K/uL (0.7-4.9); Absolute Neutrophil 11.1 K/uL (1.8-8.0); Basophils % 0.2 % (0-1.3); Eosinophils % 0.4 % (0-4.4); Lymphocytes % 10.6 % (15.3-44.8); MPV 6.7 fL (7.6-11.3); Monocytes % 13.8 % (3.3-12.3); RBC Red Blood Cell Count 4.01 M/uL (3.86-4.86)
[2018-11-28] MEDS ORDERED: NA CHLORIDE 0.9% 1,000 ML ONE (17:32)
--- NOTE | 2018-11-28 17:40 | RAD REPORT ---
EXAM DESCRIPTION: RAD - Chest Single View - 11/28/2018 5:35 pm CLINICAL HISTORY: confusion Chest pain. COMPARISON: Chest Single View dated 11/18/2018; Chest Single View dated 05/17/2018; Chest Single View dated 04/04/2018; Chest Single View dated 04/03/2018 FINDINGS: Portable technique limits examination quality. The lungs are grossly clear. The heart is normal in size. No displaced fractures.Thoracolumbar scolio sis noted. IMPRESSION: No acute intrathoracic process suspected.
[2018-11-28 18:00] LABS: Magnesium 1.5 mg/dL (1.8-2.4); Potassium 3.7 mmol/L (3.5-5.1); Troponin (Emerg Dept Use Only) 0.42 ng/mL (0.0-0.045)
[2018-11-28] MEDS ORDERED: LORazepam 2 MG/ML VIAL ONE (18:26)
--- NOTE | 2018-11-28 18:33 | EDPHYS ---
Physician Documentation [facility] Name: Shilpa Richardson Age: 73 yrs Sex: Female : 1945 Arrival Date: 11/28/2018 Time: 16:34 Bed 14 Private MD: ED Physician Trav Galicia Historical: - Allergies: 11/28 16:47 Erythromycin; jl7 16:47 PENICILLINS; jl7 16:47 Tape; jl7 - Home Meds: 17:01 alprazolam 1 mg Oral tab BID [Active]; amlodipine 2.5 mg tab 1 tab once daily [Active]; jl7 atenolol 25 mg Oral tab once daily [Active]; baclofen 10 mg Oral tab BID [Active]; Combivent Inhl [Active]; hydrocodone-acetaminophen 7.5-325 mg/15 mL Oral soln take one tablespoon TID [Active]; Lyrica 100mg Oral 2 times per day [Active]; meloxicam 15 mg Oral tab 1 tab once daily [Active]; Restasis ophthalmic 1 drop 2 times per day [Active]; Silenor 6 mg Oral tab 1 tab once daily [Active]; simvastatin 20 mg Oral tab once daily [Active]; Stiolto Respimat 2.5-2.5 mcg/actuation inhalation mist 2 puffs once daily [Active]; clonidine HCl 0.1 mg Oral tab [Active]; - PMHx: 16:47 Alcoholism; Anxiety; Carotid blockage; Chronic pain; COPD; Depression; Hypertension; jl7 - Immunization history:: Adult Immunizations unknown, Adult Immunizations. - Social history:: Smoking status: Patient/guardian denies using tobacco. - Ebola Screening: : No symptoms or risks identified at this time. Vital Signs: 16:37 Temp 98.6(O); pc1 17:01 BP 170 / 91; Pulse 125; Resp 14 S; Pulse Ox 100% on R/A; Weight 39.46 kg (R); Pain 0/10;jl7 17:30 BP 157 / 93; Pulse 129; Resp 18 S; Pulse Ox 100% on R/A; jl7 18:00 BP 183 / 90; Pulse 119; Resp 18 S; Pulse Ox 100% on R/A; jl7 18:30 BP 179 / 90; Pulse 119; Resp 18 S; Pulse Ox 100% on R/A; jl7 MDM: 17:02 Patient medically screened. ps1 11/28 17:01 Order name: Basic Metabolic Panel; Complete Time: 18:17 ps1 11/28 17:01 Order name: CBC with Diff; Complete Time: 18:17 ps1 11/28 17:01 Order name: Magnesium; Complete Time: 18:17 ps1 11/28 17:01 Order name: Troponin (emerg Dept Use Only); Complete Time: 18:17 ps1 11/28 17:01 Order name: ETOH Level; Complete Time: 18:17 ps1 11/28 18:41 Order name: Urine Dipstick--Ancillary (enter results); Complete Time: 20:28 bd 11/28 17:01 Order name: XRAY Chest (1 view); Complete Time: 18:17 ps1 11/28 17:01 Order name: EKG; Complete Time: 17:02 ps1 11/28 17:01 Order name: Cardiac monitoring; Complete Time: 17:39 ps1 11/28 17:01 Order name: EKG - Nurse/Tech; Complete Time: 17:39 ps1 11/28 17:01 Order name: IV Saline Lock; Complete Time: 17:39 ps1 11/28 17:01 Order name: Labs collected and sent; Complete Time: 17:39 ps1 11/28 17:01 Order name: O2 Per Protocol; Complete Time: 17:38 ps1 11/28 17:01 Order name: O2 Sat Monitoring; Complete Time: 17:38 ps1 Administered Medications: 17:10 Drug: cloNIDine 0.1 mg Route: PO; jl7 17:20 Drug: NS 0.9% 1000 ml Route: IV; Rate: 1 bolus; Site: right antecubital; jl7 18:15 Drug: Ativan 1 mg Route: IVP; Site: right forearm; jl7 Disposition: 11/28/18 18:32 Hospitalization ordered by Candace Hatch for Observation. Preliminary diagnosis are Elevated troponin, alcohol withdrawal, hypertension. - Bed requested for Telemetry/MedSurg (observation). - Status is Observation. ao - Condition is Fair. - Problem is new. - Symptoms are unchanged. UTI on Admission? No Signatures: Dispatcher [employer] EDMS Aurora Herrera RN RN Kory Beltran RN Wade Merino RN RN jl7 Trav Galicia MD MD ps1 Corrections: (The following items were deleted from the chart) 19:21 18:32 Hospitalization Ordered by Candace Hatch MD for Observation. Preliminary diagnosis cg is Elevated troponin; alcohol withdrawal; hypertension. Bed requested for Telemetry/MedSurg (observation). Status is Observation. Condition is Fair. Problem is new. Symptoms are unchanged. UTI on Admission? No. ps1 20:49 19:21 11/28/2018 18:32 Hospitalization Ordered by Candace Hatch MD for Observation. ao Preliminary diagnosis is Elevated troponin; alcohol withdrawal; hypertension. Bed requested for Telemetry/MedSurg (observation). Status is Observation. Condition is Fair. Problem is new. Symptoms are unchanged. UTI on Admission? No. cg
--- NOTE | 2018-11-28 18:33 | ER ---
Nurse's Notes [facility] Name: Shilpa Richardson Age: 73 yrs Sex: Female : 1945 Arrival Date: 11/28/2018 Time: 16:34 Bed 14 Private MD: Diagnosis: Elevated troponin;alcohol withdrawal;hypertension Presentation: 11/28 16:43 Presenting complaint: EMS states: Family called due to high blood pressure of 180/90, jl7 attempted to administer her Clonidine but unsure if she actually took it. Pt denies chest pain, denies shortness of breath, denies N/V/D, reports possible constipation, denies abdominal pain. Transition of care: patient was not received from another setting of care. Onset of symptoms was November 28, 2018. Risk Assessment: Do you want to hurt yourself or someone else? Patient reports no desire to harm self or others. Initial Sepsis Screen: Does the patient meet any 2 criteria? HR > 90 bpm. No. Patient's initial sepsis screen is negative. Does the patient have a suspected source of infection? No. Patient's initial sepsis screen is negative. Care prior to arrival: None. 16:43 Method Of Arrival: EMS: [facility] emergency room 16:43 Acuity: PATRICIA 3 jl7 Historical: - Allergies: 16:47 Erythromycin; jl7 16:47 PENICILLINS; 16:47 Tape; jl7 - Home Meds: 17:01 alprazolam 1 mg Oral tab BID [Active]; amlodipine 2.5 mg tab 1 tab once daily [Active]; jl7 atenolol 25 mg Oral tab once daily [Active]; baclofen 10 mg Oral tab BID [Active]; Combivent Inhl [Active]; hydrocodone-acetaminophen 7.5-325 mg/15 mL Oral soln take one tablespoon TID [Active]; Lyrica 100mg Oral 2 times per day [Active]; meloxicam 15 mg Oral tab 1 tab once daily [Active]; Restasis ophthalmic 1 drop 2 times per day [Active]; Silenor 6 mg Oral tab 1 tab once daily [Active]; simvastatin 20 mg Oral tab once daily [Active]; Stiolto Respimat 2.5-2.5 mcg/actuation inhalation mist 2 puffs once daily [Active]; clonidine HCl 0.1 mg Oral tab [Active]; - PMHx: 16:47 Alcoholism; Anxiety; Carotid blockage; Chronic pain; COPD; Depression; Hypertension; jl7 - Immunization history:: Adult Immunizations unknown, Adult Immunizations. - Social history:: Smoking status: Patient/guardian denies using tobacco. - Ebola Screening: : No symptoms or risks identified at this time. Screenin:15 Abuse screen: Denies threats or abuse. Denies injuries from another. Nutritional jl7 screening: No deficits noted. Tuberculosis screening: No symptoms or risk factors identified. Fall Risk Fall in past 12 months (25 points). No secondary diagnosis (0 pts). IV access (20 points). Ambulatory Aid- Crutches/Cane/Walker (15 pts). Gait- Weak (10 pts.). Mental Status- Oriented to own ability (0 pts). Total Solorzano Fall Scale indicates High Risk Score (45 or more points). Fall prevention measures have been instituted. Side Rails Up X 2 Placed Close to Nursing Station Frequent Obs/Assessments Occuring As available patient and family educated on Fall Prevention Program and Strategies. Assessment: 16:45 General: Appears in no apparent distress. uncomfortable, Behavior is cooperative, jl7 anxious. Pain: Denies pain. Neuro: Level of Consciousness is awake, alert, obeys commands, confused, Pt unable to say when her last drink of alcohol was, reports she did not have a drink today but unsure if she did yesterday. . Oriented to person, place, time, situation. Cardiovascular: Patient's skin is warm and dry. Rhythm is sinus tachycardia. Respiratory: Airway is patent Respiratory effort is even, unlabored, Respiratory pattern is regular, symmetrical, Denies shortness of breath. GI: Reports constipation, Patient currently denies diarrhea, nausea, vomiting. : Reports urinary frequency, Denies burning with urination. EENT: No signs and/or symptoms were reported regarding the EENT system. Derm: Bruising that is brown, yellow, bilateral arms, pt reports "I don't know where they came from. Everyone said they are from me falling a long time ago.". 18:15 Reassessment: Pt started screaming, stating "I can't breathe! I don't know what's wrong jl7 with me?" Able to get pt to calm down and deep breathe, O2 100%, went to notify ERD and pt began screaming again, ERD notified, see MAR for orders. 19:20 General: Appears in no apparent distress. comfortable, Behavior is calm, cooperative. ao Pain: Denies pain. Neuro: Level of Consciousness is awake, alert, obeys commands, confused, Oriented to person, place, time, situation, Moves all extremities. Full function Speech is normal. Cardiovascular: Patient's skin is warm and dry. Rhythm is sinus tachycardia. Respiratory: Airway is patent Respiratory effort is even, unlabored, Respiratory pattern is regular, symmetrical. GI: Reports constipation. : Reports urinary frequency. EENT: No signs and/or symptoms were reported regarding the EENT system. Derm: Bruising that is. Musculoskeletal: Range of motion: limited in all extremities. 19:58 Reassessment: Called report to ANJUM Hutchinson. ao Vital Signs: 16:37 Temp 98.6(O); pc1 17:01 BP 170 / 91; Pulse 125; Resp 14 S; Pulse Ox 100% on R/A; Weight 39.46 kg (R); Pain 0/10;jl7 17:30 BP 157 / 93; Pulse 129; Resp 18 S; Pulse Ox 100% on R/A; jl7 18:00 BP 183 / 90; Pulse 119; Resp 18 S; Pulse Ox 100% on R/A; jl7 18:30 BP 179 / 90; Pulse 119; Resp 18 S; Pulse Ox 100% on R/A; jl7 ED Course: 16:34 Patient arrived in ED. jl7 16:35 Trav Galicia MD is Attending Physician. ps1 16:43 Wade Hernandez RN is Primary Nurse. jl7 16:45 Triage completed. jl7 16:45 Patient has correct armband on for positive identification. Placed in gown. Bed in low jl7 position. Call light in reach. Side rails up X2. burn center nurse on. Pulse ox on. NIBP on. Warm blanket given. 17:00 Initial lab(s) drawn, by me, sent to lab. Urine collected: clean catch specimen, jl7 cloudy. Inserted saline lock: 20 gauge in right antecubital area, using aseptic technique. Blood collected. 17:01 Arm band placed on right wrist. jl7 17:04 EKG done, by platform power technician. reviewed by Trav Galicia MD. 3 17:35 XRAY Chest (1 view) In Process Unspecified. EDMS 17:45 Inserted saline lock: 22 gauge in right forearm, using aseptic technique. jl7 18:31 Candace Hatch MD is Hospitalizing Provider. ps1 20:48 No provider procedures requiring assistance completed. Patient did not have IV access ao during this emergency room visit. Administered Medications: 17:10 Drug: cloNIDine 0.1 mg Route: PO; jl7 17:20 Drug: NS 0.9% 1000 ml Route: IV; Rate: 1 bolus; Site: right antecubital; jl7 18:15 Drug: Ativan 1 mg Route: IVP; Site: right forearm; jl7 Outcome: 18:32 Decision to Hospitalize by Provider. ps1 20:48 Admitted to Tele accompanied by tech, room 421, with chart, Report called to hilton Hutchinson RN 20:48 Condition: stable 20:48 Instructed on the need for admit. 20:49 Patient left the ED. ao Signatures: Dispatcher [employer] Kory Betancourt, RN RN Wade Foley RN RN Trav Orta MD MD ps1 Cierra Hong sm3 Darnell Cedeno pc1 Corrections: (The following items were deleted from the chart) 16:45 16:35 Presenting complaint: berna coronel
[2018-11-28 19:47] LABS: Urine Blood NEGATIVE (NEG); Urine Glucose NEGATIVE (NEG); Urine Protein 1+ (NEG); Urine pH 6.5 (5.0-7.0)
[2018-11-28] MEDS: POTASSIUM CL SA 10 MEQ TAB PO ONE ×2 (22:30→22:59)
[2018-11-28] MEDS ORDERED: Magnesium Sulfate 2gm IVPB 2 G/50 ML BAG IV ONE (22:32)
[2018-11-28] MEDS: NA CHLORIDE 0.9% 1,000 ML IV SCH (22:59)
[2018-11-28] MEDS ORDERED: POTASSIUM 25 MEQ EFFERV TAB PO ONE (23:04)
[2018-11-29 01:18] VITALS: BMI 2432.4
[2018-11-29] MEDS: TEMAZEPAM 15 MG CAP PO PRN ×2 (02:00→21:03)
[2018-11-29] MEDS ORDERED: METOPROLOL TAR 50 MG TAB PO SCH (02:08)
[2018-11-29] MEDS ORDERED: ASPIRIN EC 81 MG TAB PO ONE (02:14)
[2018-11-29] MEDS ORDERED: NA CHLORIDE 0.9% 250 ML IV ONE (02:15)
[2018-11-29] MEDS ORDERED: METOPROLOL TARTRATE 5 MG/5 ML INJ IV STA (02:16)
[2018-11-29] MEDS ORDERED: HEPARIN/D5W 25,000 UNIT/500 ML BAG IV SCH (03:00)
[2018-11-29 03:49] LABS: Urine Appearance CLEAR; Urine Bilirubin NEGATIVE (NEG); Urine Blood NEGATIVE (NEG); Urine Color YELLOW; Urine Glucose NEGATIVE (NEG); Urine Protein NEGATIVE (NEG); Urine Specific Gravity 1.015 (1.005-1.030)
[2018-11-29 03:57] LABS: Urine Microscopic Reflex NO UMIC
[2018-11-29] MEDS: METOPROLOL TAR 50 MG TAB PO SCH ×2 (05:54→17:06)
[2018-11-29 06:07] LABS: Absolute Lymphocytes (CBC) 1.8 K/uL (0.7-4.9); Absolute Monocytes 1.3 K/uL (0.1-1.3); Absolute Neutrophil 5.7 K/uL (1.8-8.0); Basophils % 1.1 % (0-1.3); Eosinophils % 2.2 % (0-4.4); Hematocrit 30.1 % (36.0-45.0); Lymphocytes % 20.1 % (15.3-44.8); MPV 6.8 fL (7.6-11.3); Monocytes % 14.2 % (3.3-12.3); RBC Red Blood Cell Count 3.19 M/uL (3.86-4.86)
[2018-11-29 06:18] LABS: Albumin 3.2 g/dL (3.4-5.0); Bilirubin Total 0.5 mg/dL (0.2-1.0); Magnesium 2.4 mg/dL (1.8-2.4); Phosphorus 3.3 mg/dL (2.5-4.9); Potassium 4.7 mmol/L (3.5-5.1); Protein, Total 5.8 g/dL (6.4-8.2)
[2018-11-29 06:26] LABS: Thyroid Stimulating Hormone 3.31 uIU/mL (0.360-3.740)
--- NOTE | 2018-11-29 08:16 | P.HP ---
Certification for Inpatient Patient admitted to: Observation With expected LOS: <2 Midnights Patient will require the following post-hospital care: None Practitioner: I am a practitioner with admitting privileges, knowledge of patient current condition, hospital course, and medical plan of care. Services: Services provided to patient in accordance with Admission requirements found in Title 42 Section 412.3 of the Code of Federal Regulations Patient History Date of Service: 11/28/18 Reason for admission: Chest pain rule out acute coronary syndrome History of Present Illness: Patient is a 73-year-old female who was in the hospital recently for altered mental status. Patient was worked up for seizures and was discharged on anti epileptics. Patient has been doing okay until the chest pain started. Her daughter brought her back into the emergency room for evaluation. In the ER her troponins were mildly elevated. These are trending down. Her chest pain has pretty much cleared up. She just has a lot of a complaints. She has been spoken to about [facility] but she wants to be at home. Will go ahead and rule her out for acute coronary syndrome. She did have a cardiac catheterization a couple of years ago. It did not reveal any significant Coronary artery disease. She has had an arteriogram of her peripheral arteries and she has significant peripheral arterial disease including her carotid artery & her femoral arteries. Will Consult Cardiology for further evaluation. Possible discharge if cardiac status is stable. Allergies adhesive tape Allergy (Verified 11/28/18 21:48) blisters codeine Allergy (Verified 11/28/18 21:48) Itching diphenhydramine [From Benadryl] Allergy (Verified 11/28/18 21:48) Itching Penicillins Allergy (Verified 11/28/18 21:48) Anaphylaxis Erythromycin Allergy (Severe, Uncoded 11/28/18 21:48) Nausea/Vomiting Home Medications: Amlodipine [Norvasc*] 2.5 mg PO DAILY 11/18/18 Atenolol [Tenormin] 25 mg PO DAILY 11/18/18 Ipratropium/Albuterol Sulfate [Combivent Respimat 20-100 Mcg] 1 puff IH QID PRN 11/18/18 Meloxicam [Mobic] 15 mg PO DAILY 11/18/18 Ristasis 1 drop EACH EYE BID 11/18/18 Simvastatin 20 mg PO BEDTIME 11/18/18 Tiotropium Br/Olodaterol HCl [Stiolto Respimat Inhal Carbon] 2 puff IH DAILY Baclofen 1 tab PO BID 11/28/18 Alprazolam [Xanax] 1 tab PO BID 11/29/18 Alprazolam [Xanax] 1 tab PO BID 11/29/18 Doxepin HCl [Silenor] 1 tab PO DAILY 11/29/18 Hydrocodone/Acetaminophen [Hydrocodon-Acetamin 7.5-325/15] 1 tbsp PO TID Pregabalin [Lyrica] 1 cap PO BID 11/29/18 - Past Medical/Surgical History Has patient received pneumonia vaccine in the past: No Diabetic: No -: COPD -: HTN -: Osteoporosis -: Depression with anxiety -: Carotid arterial disease -: Macular Degenartion -: Hyperlipidemia -: Cataracts -: Cataract sx Rt eye -: Carotid enterectomy -: Cholecystectomy -: C-sections x3 -: Tonsillectomy Psychosocial/ Personal History: She is , she has 2 children, she lives with a sister. She does not work. - Family History Father Medical History: Heart disease, Lung disease Mother Medical History: Stroke Notes: TIA's - Social History Smoking Status: Former smoker Alcohol use: No CD- Drugs: No Caffeine use: No Place of Residence: Home Review of Systems 10-point ROS is otherwise unremarkable Physical Examination - Vital Signs Temperature: 97.9 F Blood Pressure: 126/73 Pulse: 85 Respirations: 19 Pulse Ox (%): 99 - Physical Exam General: Alert, In no apparent distress, Oriented x3 HEENT: Atraumatic, PERRLA, Mucous membr. moist/pink, EOMI, Sclerae nonicteric Neck: Supple, 2+ carotid pulse no bruit, No LAD, Without JVD or thyroid abnormality Respiratory: Clear to auscultation bilaterally, Normal air movement Cardiovascular: Regular rate/rhythm, Normal S1 S2, No murmurs Gastrointestinal: Normal bowel sounds, Soft and benign, Non-distended, No tenderness Musculoskeletal: No clubbing, No swelling, No tenderness Integumentary: No rashes Neurological: Normal speech, Normal tone, Sensation intact, Cranial nerves 3-12 intact, Normal affect, Abnormal gait, Abnormal strength Lymphatics: No axilla or inguinal lymphadenopathy - Studies Laboratory Data (last 24 hrs) 11/28/18 17:17: WBC 14.8 H D, Hgb 12.8, Hct 38.0 D, Plt Count 809 H D 11/28/18 17:17: Sodium 133 L, Potassium 3.7, BUN 19 H, Creatinine 1.07, Glucose 102, Magnesium 1.5 L D Assessment & Plan - Problems (Diagnosis) (1) Chest pain, rule out acute myocardial infarction Current Visit: Yes Status: Acute (2) Carotid artery disease Onset Date: 04/05/18 Current Visit: No Status: Acute Qualifiers: Carotid artery disease type: stenosis Laterality: bilateral Qualified Code(s): I65.23 - Occlusion and stenosis of bilateral carotid arteries (3) Alcohol abuse Onset Date: 04/05/18 Current Visit: No Status: Chronic (4) COPD (chronic obstructive pulmonary disease) Onset Date: 06/03/17 Current Visit: No Status: Chronic Qualifiers: COPD type: chronic bronchitis Chronic bronchitis type: unspecified Qualified Code(s): J42 - Unspecified chronic bronchitis (5) Chronic pain disorder Onset Date: 04/05/18 Current Visit: No Status: Chronic (6) Coronary artery disease Onset Date: 06/03/17 Current Visit: No Status: Chronic Qualifiers: (7) Depression with anxiety Onset Date: 06/03/17 Current Visit: No Status: Chronic (8) Hyperlipidemia Onset Date: 06/03/17 Current Visit: No Status: Chronic Qualifiers: (9) Hypertension Onset Date: 06/03/17 Current Visit: No Status: Chronic Qualifiers: Hypertension type: essential hypertension - Plan 1. Serial troponins and EKG 2. Cardiology consultation 3. Echocardiogram and possible stress test 4. Anti-platelet therapy, anti coagulation, beta-ramila, statin, and O2 as needed 5. IV morphine for pain 6. Nitro p.r.n. 7. Continue with anti epileptics 8. GI and DVT prophylaxis Discharge Plan: Home Plan to discharge in: 48 Hours - Advance Directives Does patient have a Living Will: Yes Does patient have a Durable POA for Healthcare: Yes - Code Status/Comfort Care Code Status Assessed: Yes Code Status: Full Code Critical Care: No Time Spent Managing PTS Care (In Minutes): 45
[2018-11-29] MEDS: CLOPIDOGREL 75 MG TABLET PO SCH (09:00)
[2018-11-29] MEDS: HYDROCOD 2.5mg-ACETAMIN 108mg/5mL Soln PO SCH ×3 (09:00→21:03)
[2018-11-29] MEDS ORDERED: ENOXAPARIN 40 MG/0.4 ML SQ SCH (09:00)
[2018-11-29] MEDS: ASPIRIN EC 81 MG TAB PO SCH (09:00)
[2018-11-29] MEDS: levETIRAcetam 500 MG TAB PO SCH ×2 (09:00→21:03)
[2018-11-29] MEDS ORDERED: TIOTROPIUM BR IH SCH (09:00)
[2018-11-29] MEDS: ALPRAZOLAM 1 MG TABLET PO SCH ×2 (09:00→21:03)
[2018-11-29] MEDS: PREGABALIN 50 MG CAP PO SCH ×2 (09:00→21:02)
[2018-11-29] MEDS ORDERED: OLODATEROL HCL IH SCH (09:00)
[2018-11-29] MEDS ORDERED: [UNRECOGNIZED DRUG - OTHER] EACH EYE SCH (09:00)
[2018-11-29] MEDS: AMLODIPINE 5 MG TAB PO SCH (09:00)
[2018-11-29] MEDS: BACLOFEN 10 MG TAB PO SCH ×2 (09:00→21:03)
[2018-11-29] MEDS ORDERED: DOXEPIN HCL PO SCH (09:00)
--- NOTE | 2018-11-29 09:22 | CON ---
Chief Complaint: Just feeling bad in general. History Of Present Illness: The patient was in our hospital and left just 2 days ago, and came back, she believes because she was treated poorly by her sister, not given medicines. She depends on her sister to arrange the medicines and give them to her, and she said it was not done properly. She is extremely angry. She was not having chest pain, but she was very angry and out of breath, that was t he main complaint, and since being here, she has abnormal cardiac enzymes consistent with myocardial necrosis. The patient has a history of going through a cardiac cath and carotid angiography, carotid endarterectomy, or stent was done in 2015. She has had abdominal angiography. No stents in leg art dillan. She is a former smoker. She has COPD, chronic pain, depression, anxiety, altered mental status , and now it looks like she probably had a seizure. She was hyponatremic at the time of her seizure about up to a week ago. Her most recent carotid artery ultrasound was just 5 days ago. The left car otid bulb has an intermediate stenosis in it. The right carotid bulb was not mentioned as having any thing abnormal, but I believe she has had an endarterectomy on the right. Physical Examination: General: She is alert, extremely angry, angry at her sister. Chest: Not having chest pain or shortness of breath. Lungs: No crackles or wheeze. Breath tones are mostly bronchial, but no wheezes. Heart: Regular rate and rhythm. No significant murmur. Abdomen: Soft. Extremities: Thin, almost wasted. Vital Signs: She is 5 feet tall, 86 pounds, she has lost 8 pounds of weight since she was in our [facility] last week. Laboratory Data: Reveals a troponin of 0.22. Her creatinine is 0.67. Estimated glomerular filtrati on rate is 87. Impression: Mrs. Richardson has abnormal enzymes. It could be from the seizure she had last week. I am very suspicious she has unstable angina. She is reluctant to do a cardiac cath unless her daught er is called, who lives in [place]. She is reluctant to do a cardiac cath at all, perhaps for good reason. She is a very small person, and in general there are lot more complications in very sma ll people going through heart catheterization and intervention. I will await and see what comes to p ass today. We will redo an echocardiogram, trying to contact family members, and try and decide if t hey want to do a cardiac cath tomorrow. GABI/JAMILA Voice ID: [id number] Report ID: [id number]
--- NOTE | 2018-11-29 11:20 | ECHO ---
HEIGHT: 4 ft 11 in WEIGHT: 86 lb 8 oz DATE OF STUDY: 11/29/[address]: Rashmi Walter MD 2-DIMENSIONAL: YES M.MODE: YES DOPPLER: YES COLOR FLOW: YES TDS: YES PORTABLE: NO DEFINITY: NO BUBBLE STUDY: NO DIAGNOSIS: CHEST PAIN, RULE OUT ACS CARDIAC HISTORY: CATHERIZATION: NO SURGERY: NO PROSTHETIC VALVE: NO PACEMAKER: NO MEASUREMENTS (cm) DIASTOLIC (NORMALS) SYSTOLIC (NORMALS) IVSd 1.0 (0.6-1.2) LA Diam 3.0 (1.9-4.0) LVEF 61% LVIDd 2.7 (3.5-5.7) LVIDs 1.9 (2.0-3.5) %FS 31% LVPWd 1.0 (0.6-1.2) Ao Diam 2.6 (2.0-3.7) 2 DIMENSIONAL ASSESSMENT: RIGHT ATRIUM: NORMAL LEFT ATRIUM: NORMAL RIGHT VENTRICLE: NORMAL LEFT VENTRICLE: NORMAL TRICUSPID VALVE: NORMAL MITRAL VALVE: NORMAL PULMONIC VALVE: NORMAL AORTIC VALVE: NORMAL PERICARDIAL EFFUSION: NONE AORTIC ROOT: NORMAL LEFT VENTRICULAR WALL MOTION: DOPPLER/COLOR FLOW: TRACE TRICUSPID REGURGITATION. NORMAL RIGHT VENTRICULAR SYSTOLIC PRESSURE. COMMENTS: NORMAL 2D ECHOCARDIOGRAM. TRACE TRICUSPID REGURGITATION. TECHNOLOGIST: Alma EVANS
[2018-11-29] MEDS: NA CHLORIDE 0.9% 1,000 ML IV SCH (11:23)
--- NOTE | 2018-11-29 13:45 | P.PN ---
Subjective Date of Service: 11/29/18 Chief Complaint: Chest pain rule out acute coronary syndrome Subjective: Improving Patient seen and examined at bedside. No family at bedside. Patient angry that her sister did not give her medications and states that "no one is looking after her". She denies any chest pain at this time, sob, dizziness, headache, vision changes. She states that she would like us to talk to her daughter in [facility] regarding her moving there to be in a prison. Review of Systems 10-point ROS is otherwise unremarkable Physical Examination - Vital Signs Temperature: 97.8 F Blood Pressure: 102/68 Pulse: 88 Respirations: 18 Pulse Ox (%): 98 - Physical Exam General: Alert, In no apparent distress, Oriented x3, Cachectic HEENT: Atraumatic, PERRLA, EOMI Neck: Supple, JVD not distended Respiratory: Clear to auscultation bilaterally, Normal air movement Cardiovascular: Regular rate/rhythm, Normal S1 S2 Gastrointestinal: Normal bowel sounds, No tenderness Musculoskeletal: No tenderness Integumentary: No rashes Neurological: Normal speech, Normal tone, Normal affect Lymphatics: No axilla or inguinal lymphadenopathy - Studies Laboratory Data (last 24 hrs) 11/28/18 17:17: WBC 14.8 H D, Hgb 12.8, Hct 38.0 D, Plt Count 809 H D 11/28/18 17:17: Sodium 133 L, Potassium 3.7, BUN 19 H, Creatinine 1.07, Glucose 102, Magnesium 1.5 L D Assessment And Plan - Current Problems (Diagnosis) (1) Seizure Current Visit: Yes Status: Acute (2) Chest pain, rule out acute myocardial infarction Current Visit: Yes Status: Acute (3) Alcohol ingestion Onset Date: 07/08/16 Current Visit: No Status: Acute (4) COPD (chronic obstructive pulmonary disease) Onset Date: 06/03/17 Current Visit: No Status: Chronic Qualifiers: COPD type: chronic bronchitis Chronic bronchitis type: unspecified Qualified Code(s): J42 - Unspecified chronic bronchitis (5) Chronic pain disorder Onset Date: 04/05/18 Current Visit: No Status: Chronic (6) Coronary artery disease Onset Date: 06/03/17 Current Visit: No Status: Chronic Qualifiers: (7) Depression with anxiety Onset Date: 06/03/17 Current Visit: No Status: Chronic (8) Hyperlipidemia Onset Date: 06/03/17 Current Visit: No Status: Chronic Qualifiers: (9) Hypertension Onset Date: 06/03/17 Current Visit: No Status: Chronic Qualifiers: Hypertension type: essential hypertension Qualified Code(s): I10 - Essential (primary) hypertension - Plan This is a 73 yr old female: Chest pain, rule out acute myocardial infarction (Acute) R07.9 Coronary artery disease (Chronic 06/03/17) I25.10 Chest pain resolved Conitnue chest pain guidelines Cardiology consulted Troponins trending down ECHO pending. Possibility that patient may require cardiac cath, though patient unsure if she would like to do it or not. States that she has previously had a heart cath and it was normal. She did not like the procedure last time and does not want to go through it again. Fall (Acute) W19.XXXA Patient with a hx of falls recently. She does not remember a lot of her falls Alcohol abuse (Chronic 04/05/18) F10.10 Education of complete alcohol cessation re-iterated. COPD (chronic obstructive pulmonary disease) (Chronic 06/03/17) J44.9 Stable, continue home medications. Chronic pain disorder (Chronic 04/05/18) G89.4 Patient on multiple medications at home, including 2 benzos. Will continue ativan prn Will hold other pain medications at this time. Depression with anxiety (Chronic 06/03/17) F41.8 Restart home medications Hyperlipidemia (Chronic 06/03/17) E78.5 Restart home medications Hypertension (Chronic 06/03/17) I10 Restart home medications Carotid artery disease (Acute 04/05/18) I77.9 Seizures Recently diagnosed; unsure if this was secondary to withdrawal. No episodes after starting keppra at last visit. .Will continue at this time. Continue to monitor. Debility Patient unsafe discharge home, was discussed with her prior to discharge at last visit though patient was adamant about going back to her sister's house. Discussed again with patient regarding possibility of getting patient to SNF. Patient agrees that she would like to go to a SNF DVT prophylaxis: Lovenox GI Prophylaxis: None Diet: Heart Healthy Dispo: pending cardiac workup and symptomatic improvement. SW consulted for discharge planning.
[2018-11-29] MEDS: ATORVASTATIN 10 MG TAB PO SCH (21:03)
[2018-11-30] MEDS: NA CHLORIDE 0.9% 1,000 ML IV SCH ×3 (00:13→21:12)
[2018-11-30] MEDS: METOPROLOL TAR 50 MG TAB PO SCH ×2 (05:03→17:23)
[2018-11-30] MEDS: HYDROCOD 2.5mg-ACETAMIN 108mg/5mL Soln PO SCH ×3 (08:09→21:08)
[2018-11-30] MEDS: PREGABALIN 50 MG CAP PO SCH ×2 (08:09→21:08)
[2018-11-30] MEDS: levETIRAcetam 500 MG TAB PO SCH ×2 (08:10→21:09)
[2018-11-30] MEDS: BACLOFEN 10 MG TAB PO SCH ×2 (08:10→21:09)
[2018-11-30] MEDS: ASPIRIN EC 81 MG TAB PO SCH (08:11)
[2018-11-30] MEDS: AMLODIPINE 5 MG TAB PO SCH (08:11)
[2018-11-30] MEDS: CLOPIDOGREL 75 MG TABLET PO SCH (08:12)
[2018-11-30] MEDS: ALPRAZOLAM 1 MG TABLET PO SCH ×2 (08:12→21:09)
[2018-11-30] MEDS ORDERED: PNEUMOCOCCAL VACCINE 0.5 ML IMVAC ONE (12:00)
[2018-11-30] MEDS: MUPIROCIN 2% OINT 22GM TUBE TOP SCH (13:21)
--- NOTE | 2018-11-30 13:21 | PN ---
Ms. Richardson is much improved today. She would refuse to have a cardiac cath at right wrist and at this point, I think it is not likely to be useful. Her echocardiogram was normal. She is not having angina, so lets proceed with medical therapy for presumed CAD. GABI/JAMILA Voice ID: [id number] Report ID: [id number]
--- NOTE | 2018-11-30 17:52 | P.PN ---
Subjective Date of Service: 11/30/18 Chief Complaint: Chest pain rule out acute coronary syndrome Patient seen and examined at bedside. No family at bedside. Chart reviewed and case discussed with nursing staff and social work. Patient is admitted for elevated troponins. Doing well, no complaints of chest pain, shortness of breath, dizziness, headaches this morning. Review of Systems 10-point ROS is otherwise unremarkable Physical Examination - Vital Signs Temperature: 96.6 F Blood Pressure: 160/68 Pulse: 80 Respirations: 18 Pulse Ox (%): 93 - Physical Exam General: Alert, In no apparent distress, Oriented x3, Cachectic Respiratory: Clear to auscultation bilaterally, Normal air movement Cardiovascular: Regular rate/rhythm, Normal S1 S2 Gastrointestinal: Normal bowel sounds Integumentary: Rash(es), Skin lesion Assessment And Plan - Current Problems (Diagnosis) (1) Seizure Current Visit: Yes Status: Acute (2) Chest pain, rule out acute myocardial infarction Current Visit: Yes Status: Acute (3) Alcohol ingestion Onset Date: 07/08/16 Current Visit: No Status: Acute (4) COPD (chronic obstructive pulmonary disease) Onset Date: 06/03/17 Current Visit: No Status: Chronic Qualifiers: COPD type: chronic bronchitis Chronic bronchitis type: unspecified Qualified Code(s): J42 - Unspecified chronic bronchitis (5) Chronic pain disorder Onset Date: 04/05/18 Current Visit: No Status: Chronic (6) Coronary artery disease Onset Date: 06/03/17 Current Visit: No Status: Chronic Qualifiers: (7) Depression with anxiety Onset Date: 06/03/17 Current Visit: No Status: Chronic (8) Hyperlipidemia Onset Date: 06/03/17 Current Visit: No Status: Chronic Qualifiers: (9) Hypertension Onset Date: 06/03/17 Current Visit: No Status: Chronic Qualifiers: Hypertension type: essential hypertension Qualified Code(s): I10 - Essential (primary) hypertension - Plan This is a 73 yr old female: Chest pain, rule out acute myocardial infarction (Acute) R07.9 Coronary artery disease (Chronic 06/03/17) I25.10 Chest pain resolved Continue chest pain guidelines Cardiology consulted, recommendations appreciated Troponins trending down ECHO normal. No recommendations of cardiac catheterization at this point per cardiology. Will continue medical management for presumed CAD at this time. Fall (Acute) W19.XXXA Patient with a hx of falls recently. She does not remember a lot of her falls Physical therapy consulted Patient will [facility] and physical therapy. Alcohol abuse (Chronic 04/05/18) F10.10 Education of complete alcohol cessation re-iterated. COPD (chronic obstructive pulmonary disease) (Chronic 06/03/17) J44.9 Stable, continue home medications. Chronic pain disorder (Chronic 04/05/18) G89.4 Patient on multiple medications at home, including 2 benzos. Will continue ativan prn Will hold other pain medications at this time. Depression with anxiety (Chronic 06/03/17) F41.8 Restart home medications Hyperlipidemia (Chronic 06/03/17) E78.5 Restart home medications Hypertension (Chronic 06/03/17) I10 Restart home medications Carotid artery disease (Acute 04/05/18) I77.9 Medical management. See above Seizures Recently diagnosed; unsure if this was secondary to withdrawal. No episodes after starting keppra at last visit. .Will continue at this time. Continue to monitor. Debility Patient unsafe discharge home, was discussed with her prior to discharge at last visit though patient was adamant about going back to her sister's house. Discussed again with patient regarding possibility of getting patient to SNF. Patient agrees that she would like to go to a SNF DVT prophylaxis: Lovenox GI Prophylaxis: None Diet: Heart Healthy Dispo: pending cardiac workup and symptomatic improvement. SW consulted for discharge planning.
[2018-11-30] MEDS: ENSURE ENLIVE 237 ML CAN PO SCH (21:00)
[2018-11-30] MEDS: ATORVASTATIN 10 MG TAB PO SCH (21:09)
[2018-11-30] MEDS: TEMAZEPAM 15 MG CAP PO PRN (23:26)
[2018-12-01] MEDS: NA CHLORIDE 0.9% 1,000 ML IV SCH ×2 (03:24→16:44)
[2018-12-01] MEDS: METOPROLOL TAR 50 MG TAB PO SCH ×2 (05:48→18:24)
[2018-12-01] MEDS: MUPIROCIN 2% OINT 22GM TUBE TOP SCH ×2 (09:00→20:34)
[2018-12-01] MEDS: ENSURE ENLIVE 237 ML CAN PO SCH ×2 (09:00→20:34)
[2018-12-01] MEDS: HYDROCOD 2.5mg-ACETAMIN 108mg/5mL Soln PO SCH ×3 (09:00→20:33)
[2018-12-01] MEDS: PREGABALIN 50 MG CAP PO SCH ×2 (09:43→20:33)
[2018-12-01] MEDS: AMLODIPINE 5 MG TAB PO SCH (09:43)
[2018-12-01] MEDS: ASPIRIN EC 81 MG TAB PO SCH (09:44)
[2018-12-01] MEDS: BACLOFEN 10 MG TAB PO SCH ×2 (09:45→20:33)
[2018-12-01] MEDS: levETIRAcetam 500 MG TAB PO SCH ×2 (09:45→20:33)
[2018-12-01] MEDS: CLOPIDOGREL 75 MG TABLET PO SCH (09:45)
[2018-12-01] MEDS: ALPRAZOLAM 1 MG TABLET PO SCH ×2 (09:45→20:34)
--- NOTE | 2018-12-01 13:59 | P.PN ---
Subjective Date of Service: 12/01/18 Chief Complaint: Chest pain rule out acute coronary syndrome Subjective: No C/O voiced Patient seen and examined at bedside. No family at bedside. Chart reviewed and case discussed with nursing staff and social work. Patient is admitted for elevated troponins. Doing well, no complaints of chest pain, shortness of breath, dizziness, headaches this morning. Review of Systems 10-point ROS is otherwise unremarkable Physical Examination - Vital Signs Temperature: 97.8 F Blood Pressure: 137/74 Pulse: 91 Respirations: 20 Pulse Ox (%): 100 - Physical Exam General: Alert, In no apparent distress, Oriented x3, Cachectic HEENT: Atraumatic, PERRLA, EOMI Neck: Supple, JVD not distended Respiratory: Clear to auscultation bilaterally, Normal air movement Cardiovascular: Regular rate/rhythm, Normal S1 S2 Gastrointestinal: Normal bowel sounds, No tenderness Musculoskeletal: No tenderness Integumentary: No rashes Neurological: Normal speech, Normal tone, Normal affect Lymphatics: No axilla or inguinal lymphadenopathy Assessment And Plan - Current Problems (Diagnosis) (1) Seizure Current Visit: Yes Status: Acute (2) Chest pain, rule out acute myocardial infarction Current Visit: Yes Status: Acute (3) Alcohol ingestion Onset Date: 07/08/16 Current Visit: No Status: Acute (4) COPD (chronic obstructive pulmonary disease) Onset Date: 06/03/17 Current Visit: No Status: Chronic Qualifiers: COPD type: chronic bronchitis Chronic bronchitis type: unspecified Qualified Code(s): J42 - Unspecified chronic bronchitis (5) Chronic pain disorder Onset Date: 04/05/18 Current Visit: No Status: Chronic (6) Coronary artery disease Onset Date: 06/03/17 Current Visit: No Status: Chronic Qualifiers: (7) Depression with anxiety Onset Date: 06/03/17 Current Visit: No Status: Chronic (8) Hyperlipidemia Onset Date: 06/03/17 Current Visit: No Status: Chronic Qualifiers: (9) Hypertension Onset Date: 06/03/17 Current Visit: No Status: Chronic Qualifiers: Hypertension type: essential hypertension Qualified Code(s): I10 - Essential (primary) hypertension - Plan This is a 73 yr old female: Chest pain, rule out acute myocardial infarction (Acute) R07.9 Coronary artery disease (Chronic 06/03/17) I25.10 Chest pain resolved Continue chest pain guidelines Cardiology consulted, recommendations appreciated Troponins trending down ECHO normal. No recommendations of cardiac catheterization at this point per cardiology. Will continue medical management for presumed CAD at this time. Fall (Acute) W19.XXXA Patient with a hx of falls recently. She does not remember a lot of her falls Physical therapy consulted Patient will benefit from [facility] facility and physical therapy. Alcohol abuse (Chronic 04/05/18) F10.10 Education of complete alcohol cessation re-iterated. COPD (chronic obstructive pulmonary disease) (Chronic 06/03/17) J44.9 Stable, continue home medications. Chronic pain disorder (Chronic 04/05/18) G89.4 Patient on multiple medications at home, including 2 benzos. Will continue ativan prn Will hold other pain medications at this time. Depression with anxiety (Chronic 06/03/17) F41.8 Restart home medications Hyperlipidemia (Chronic 06/03/17) E78.5 Restart home medications Hypertension (Chronic 06/03/17) I10 Restart home medications Carotid artery disease (Acute 04/05/18) I77.9 Medical management. See above Seizures Recently diagnosed; unsure if this was secondary to withdrawal. No episodes after starting keppra at last visit. .Will continue at this time. Continue to monitor. Debility Patient unsafe discharge home, was discussed with her prior to discharge at last visit though patient was adamant about going back to her sister's house. Discussed again with patient regarding possibility of getting patient to SNF. Patient agrees that she would like to go to a SNF DVT prophylaxis: Lovenox GI Prophylaxis: None Diet: Heart Healthy Dispo: Pending placement
[2018-12-01] MEDS: ATORVASTATIN 10 MG TAB PO SCH (20:33)
[2018-12-01] MEDS: TEMAZEPAM 15 MG CAP PO PRN (20:34)
[2018-12-02] MEDS: METOPROLOL TAR 50 MG TAB PO SCH (06:08)
[2018-12-02] MEDS: levETIRAcetam 500 MG TAB PO SCH (09:36)
[2018-12-02] MEDS: ASPIRIN EC 81 MG TAB PO SCH (09:36)
[2018-12-02] MEDS: AMLODIPINE 5 MG TAB PO SCH (09:36)
[2018-12-02] MEDS: MUPIROCIN 2% OINT 22GM TUBE TOP SCH (09:37)
[2018-12-02] MEDS: ALPRAZOLAM 1 MG TABLET PO SCH (09:37)
[2018-12-02] MEDS: ENSURE ENLIVE 237 ML CAN PO SCH (09:37)
[2018-12-02] MEDS: BACLOFEN 10 MG TAB PO SCH (09:37)
[2018-12-02] MEDS: CLOPIDOGREL 75 MG TABLET PO SCH (09:37)
[2018-12-02] MEDS: HYDROCOD 2.5mg-ACETAMIN 108mg/5mL Soln PO SCH ×2 (09:38→14:00)
[2018-12-02] MEDS: PREGABALIN 50 MG CAP PO SCH (09:41)
--- NOTE | 2018-12-02 10:59 | P.DS ---
Admission Date: 11/28/18 Discharge Date: 12/02/18 Disposition: ROUTINE DISCHARGE Discharge Condition: GOOD Reason for Admission: Chest pain rule out acute coronary syndrome Consultations: Cardiology, Dr. Haile Procedures: 11/29/2018: ECHOCARDIOGRAM REPORT DOPPLER/COLOR FLOW: TRACE TRICUSPID REGURGITATION. NORMAL RIGHT VENTRICULAR SYSTOLIC PRESSURE. COMMENTS: NORMAL 2D ECHOCARDIOGRAM. TRACE TRICUSPID REGURGITATION. - Problems (1) Seizure Current Visit: Yes Status: Acute (2) Chest pain, rule out acute myocardial infarction Current Visit: Yes Status: Acute (3) Alcohol ingestion Onset Date: 07/08/16 Current Visit: No Status: Acute (4) COPD (chronic obstructive pulmonary disease) Onset Date: 06/03/17 Current Visit: No Status: Chronic Qualifiers: COPD type: chronic bronchitis Chronic bronchitis type: unspecified Qualified Code(s): J42 - Unspecified chronic bronchitis (5) Chronic pain disorder Onset Date: 04/05/18 Current Visit: No Status: Chronic (6) Coronary artery disease Onset Date: 06/03/17 Current Visit: No Status: Chronic Qualifiers: (7) Depression with anxiety Onset Date: 06/03/17 Current Visit: No Status: Chronic (8) Hyperlipidemia Onset Date: 06/03/17 Current Visit: No Status: Chronic Qualifiers: (9) Hypertension Onset Date: 06/03/17 Current Visit: No Status: Chronic Qualifiers: Hypertension type: essential hypertension Qualified Code(s): I10 - Essential (primary) hypertension Brief History of Present Illness: Patient is a 73-year-old female who was in the hospital recently for altered mental status. Patient was worked up for seizures and was discharged on anti epileptics. Patient has been doing okay until the chest pain started. Her daughter brought her back into the emergency room for evaluation. In the ER her troponins were mildly elevated. These are trending down. Her chest pain has pretty much cleared up. She just has a lot of a complaints. She has been spoken to about halfway but she wants to be at home. Will go ahead and rule her out for acute coronary syndrome. She did have a cardiac catheterization a couple of years ago. It did not reveal any significant Coronary artery disease. She has had an arteriogram of her peripheral arteries and she has significant peripheral arterial disease including her carotid artery & her femoral arteries. Will Consult Cardiology for further evaluation. Possible discharge if cardiac status is stable. Hospital Course: Patient was admitted for chest pain rule out. Cardio was consulted. She was started on chest pain guidelines. Her troponins were trending down. Her echocardiogram was done, which was normal. Initially, Cardiology did recommend a cardiac catheterization, the patient did not want it. As her symptoms improved, cardiology stated that medical management and continued for presumed coronary artery disease at this time. Patient does not need a heart catheterization at this point, may needed down the line. Her chest pain did resolve prior to discharge. No Plavix prescription was provided to her at discharge as she has a high risk for falls due to her alcohol use. Explained risks and benefits to patient. Patient verbalized understanding. She was discharged home on a beta-ramila. Patient with a history of hypertension, blood pressure elevated at times throughout the stay. Her blood pressure was stabilized on home medications. Please see medication reconciliation for medications. Patient with a history of recent falls which she did not remember a lot of her falls. Physical therapy was consulted. She worked really well with physical therapy. She was referred for a halfway facility placement which was denied by her insurance as she was doing too well with physical therapy. She is recommended to continue with the exercises at home. Patient with a history of alcohol abuse. She was Re educated on complete alcohol cessation. This was reiterated many times throughout this hospitalization. I am not sure if patient is interested in quitting alcohol at this time. Patient with a history of COPD, which remained stable throughout the stay. No medication changes were made for her COPD on discharge. Patient with a history of chronic pain disorder. Reiterated the risks of taking multiple pain medications at home. Patient states that she continues to take them because she has this pain. She will follow up with primary care physician. It was recommended that she does follow up with pain management. Information provided to her on discharge paperwork Patient also has a history of depression with anxiety. She remained stable throughout the stay. Denied any suicidal or homicidal ideations. No medication changes made prior to discharge. Patient with a recent diagnosis of seizures at last admission. Unsure if this was secondary to withdrawal. She has had no episodes of seizures throughout his hospitalization while being on Keppra. Will continue Keppra oral upon discharge. Prescription sent to the pharmacy. Otherwise, she remained stable throughout the stay. No other medication changes were made to her hyperlipidemia medications. Prior to discharge, patient was alert oriented x3, in no acute distress, she is working well with physical therapy, tolerating an oral diet. Her labs were stable and she was doing well. She was then discharged home in a stable manner. Vital Signs/Physical Exam: Temp Pulse Resp BP Pulse Ox 97.0 F 83 18 138/70 96 12/02/18 08:00 12/02/18 09:36 12/02/18 08:00 12/02/18 09:36 12/02/18 08:00 General: Alert, In no apparent distress, Oriented x3 HEENT: Atraumatic, PERRLA, EOMI Neck: Supple, JVD not distended Respiratory: Clear to auscultation bilaterally, Normal air movement Cardiovascular: Regular rate/rhythm, Normal S1 S2 Gastrointestinal: Normal bowel sounds, No tenderness Musculoskeletal: No tenderness Integumentary: No rashes Neurological: Normal speech, Normal tone, Normal affect Lymphatics: No axilla or inguinal lymphadenopathy Laboratory Data at Discharge: WBC 9.2 K/uL (4.3-10.9) D 11/29/18 05:46 Hgb 10.4 g/dL (12.0-15.0) L 11/29/18 05:46 Hct 30.1 % (36.0-45.0) L D 11/29/18 05:46 Plt Count 671 K/uL (152-406) H 11/29/18 05:46 Sodium 137 mmol/L (136-145) 11/29/18 05:46 Potassium 4.7 mmol/L (3.5-5.1) 11/29/18 05:46 BUN 9 mg/dL (7-18) 11/29/18 05:46 Creatinine 0.67 mg/dL (0.55-1.3) 11/29/18 05:46 Glucose 89 mg/dL (74-106) 11/29/18 05:46 Phosphorus 3.3 mg/dL (2.5-4.9) 11/29/18 05:46 Magnesium 2.4 mg/dL (1.8-2.4) D 11/29/18 05:46 Total Bilirubin 0.5 mg/dL (0.2-1.0) 11/29/18 05:46 AST 28 U/L (15-37) 11/29/18 05:46 ALT 22 U/L (12-78) 11/29/18 05:46 Alkaline Phosphatase 109 U/L (45-117) 11/29/18 05:46 Troponin I 0.22 ng/mL (0.0-0.045) H 11/29/18 02:13 Home Medications: Ipratropium/Albuterol Sulfate [Combivent Respimat 20-100 Mcg] 1 puff IH QID PRN 11/18/18 Meloxicam [Mobic] 15 mg PO DAILY 11/18/18 Ristasis 1 drop EACH EYE BID 11/18/18 Simvastatin 20 mg PO BEDTIME 11/18/18 Tiotropium Br/Olodaterol HCl [Stiolto Respimat Inhal [place]] 2 puff IH DAILY Baclofen 1 tab PO BID 11/28/18 Alprazolam [Xanax] 1 tab PO BID 11/29/18 Doxepin HCl [Silenor] 1 tab PO DAILY 11/29/18 Hydrocodone/Acetaminophen [Hydrocodon-Acetamin 7.5-325/15] 1 tbsp PO TID Pregabalin [Lyrica] 1 cap PO BID 11/29/18 Amlodipine [Norvasc*] 2.5 mg PO DAILY #30 tab 12/02/18 Atenolol [Tenormin] 25 mg PO DAILY #30 tablet 12/02/18 Mupirocin Oint [Bactroban 2% Ointment*] 1 appl TOP BID #1 tube 12/02/18 levETIRAcetam [Keppra*] 500 mg PO BID #60 tab 12/02/18 New Medications: Amlodipine [Norvasc*] 2.5 mg PO DAILY #30 tab Atenolol [Tenormin] 25 mg PO DAILY #30 tablet levETIRAcetam [Keppra*] 500 mg PO BID #60 tab Mupirocin Oint [Bactroban 2% Ointment*] 1 appl TOP BID #1 tube Patient Discharge Instructions: Please follow up with the primary care physician in 2-3 days. Please follow up with cardiology, Dr. Haile in 2 weeks. Please remember to take a blood pressure medications. Return to the emergency room for worsening symptoms. Diet: AHA Activity: Fall precautions Followup: Kee Haile MD [ACTIVE - CAN ADMIT] - 1-2 Weeks Jhonatan Frazier DO [ACTIVE - CAN ADMIT] - Time spent managing pt's care (in minutes): 55
[2018-12-02 12:14] VITALS: O2SAT 93
[2018-12-02 13:01] VITALS: BP 131/77; TEMP 97.1
== END 2018-12-02 14:46 | disposition home or self-care (01) ==
LOC: ER 16:33 → 4TH 20:28
PROVIDERS: ADMIT Family Medicine; ATTEND Hospitalist
DX: R07.9 Chest pain, unspecified (principal); R56.9 Unspecified convulsions; I73.9 Peripheral vascular disease, unspecified; E78.5 Hyperlipidemia, unspecified; I10 Essential (primary) hypertension; J44.9 Chronic obstructive pulmonary disease, unspecified; G89.29 Other chronic pain; F41.8 Other specified anxiety disorders; I25.10 Atherosclerotic heart disease of native coronary artery without angina pectoris; F10.10 Alcohol abuse, uncomplicated; Z88.0 Allergy status to penicillin; Z23 Encounter for immunization
CPT/HCPCS: 93005; 93306; 85025 ×2; 80048; 36415; 80320; 83735 ×2; 84100; 87493; 84443; 81003 ×2; 84484 ×2; 84439; 80053; 71045; 90670; 97116 ×2; 97163; 97530 ×2; 94760 ×8; 96374; 99285; G0009; J3475; J7030 ×5; G0378 ×2

== ENCOUNTER 2018-12-07 12:06 | Observation (INO) | payer OTHER ==
--- NOTE | 2018-12-07 12:49 | RAD REPORT ---
EXAM DESCRIPTION: Evin Single View12/07/2018 12:44 pm CLINICAL HISTORY: Chest pain COMPARISON: November 2018 FINDINGS: The lungs are hyperaerated The lungs appear clear of acute infiltrate. The heart is normal size IMPRESSION: No acute abnormalities displayed
--- NOTE | 2018-12-07 12:51 | RAD REPORT ---
EXAM DESCRIPTION: CT - Head Brain Wo Cont - 12/07/2018 12:40 pm CLINICAL HISTORY: Confused;Mental status change Headache, drowsiness COMPARISON: Head Brain Wo Cont dated 11/18/2018; Head Brain Wo Cont dated 05/17/2018 TECHNIQUE: All CT scans are performed using dose optimization technique as appropriate and may inclu de automated exposure control or mA/KV adjustment according to patient size. FINDINGS: No intracranial hemorrhage, hydrocephalus or extra-axial fluid collection.Mild generalized brain atrophy is present with mild periventricular and deep white matter chronic microvascular ische marcella changes.No areas of brain edema or evidence of midline shift. The paranasal sinuses and mastoids are clear. The calvarium is intact. IMPRESSION: No acute intracranial abnormality.
[2018-12-07] MEDS ORDERED: LORazepam 2 MG/ML VIAL ONE (13:17)
[2018-12-07] MEDS ORDERED: NA CHLORIDE 0.9% 1,000 ML ONE (13:17)
[2018-12-07 13:23] LABS: Absolute Lymphocytes (CBC) 0.7 K/uL (0.7-4.9); Absolute Monocytes 0.8 K/uL (0.1-1.3); Absolute Neutrophil 11.9 K/uL (1.8-8.0); Basophils % 0.4 % (0-1.3); Eosinophils % 0.1 % (0-4.4); Hematocrit 39.2 % (36.0-45.0); Lymphocytes % 4.8 % (15.3-44.8); MPV 7.1 fL (7.6-11.3); Monocytes % 6.2 % (3.3-12.3); RBC Red Blood Cell Count 4.13 M/uL (3.86-4.86)
[2018-12-07 13:50] LABS: ALT/SGPT 26 U/L (12-78); AST/SGOT 27 U/L (15-37); Albumin 4.5 g/dL (3.4-5.0); Alkaline Phosphatase 196 U/L (45-117); BUN Blood Urea Nitrogen 16 mg/dL (7-18); Bicarbonate 25 mmol/L (21-32); Bilirubin Direct 0.3 mg/dL (0-0.2); Creatine Phosphokinase 128 U/L (26-192); Glucose Level 101 mg/dL (74-106); Lipase 189 U/L (73-393); Magnesium 1.9 mg/dL (1.8-2.4); Potassium 3.8 mmol/L (3.5-5.1); Protein, Total 8.6 g/dL (6.4-8.2); Sodium Level 137 mmol/L (136-145); Troponin (Emerg Dept Use Only) 0.04 ng/mL (0.0-0.045)
--- NOTE | 2018-12-07 13:58 | RAD REPORT ---
EXAM DESCRIPTION: CT - Abdomen Pelvis Wo Contrast - 12/07/2018 1:50 pm CLINICAL HISTORY: Abdominal pain. abd pain, vomiting, weight loss COMPARISON: Stone Protocol dated 05/17/2018 TECHNIQUE: CT imaging of the abdomen and pelvis was performed without contrast. Solid organ, bowel a nd vascular assessment is limited due to lack of IV and oral contrast. All CT scans are performed using dose optimization technique as appropriate and may include automated exposure control or mA/KV adjustment according to patient size. FINDINGS: The lower lung graham are emphysematous. Cholecystectomy clips are seen. The liver demonstrates [id number] intrahepatic biliary dilatati on. Common bile duct is mildly dilated. The degree of biliary dilatation appears mildly improved sinc e comparative study.The spleen, adrenal glands, pancreas and kidneys are within normal limits. No bowel obstruction, free air, free fluid or abscess. Heavy aortic atherosclerosis. The appendix is normal. Moderate lumbar degenerative changes are present with levoscoliosis. IMPRESSION: No acute intra-abdominal or pelvic findings. Intrahepatic and extrahepatic biliary tree dilatation is again noted, slightly improved relative to c omparative study. MRCP can be obtained if further assessment is clinically warranted. A limited non-contrast examination was performed as detailed.
[2018-12-07 14:21] LABS: Protime INR 1.03
[2018-12-07 15:26] LABS: Barbiturates NEGATIVE (NEGATIVE); Benzodiazepines NEGATIVE (NEGATIVE); Cocaine NEGATIVE (NEGATIVE); METHAMPHETAM NEGATIVE (NEGATIVE); Methadone NEGATIVE (NEGATIVE); Opiates NEGATIVE (NEGATIVE); Phencyclidine NEGATIVE (NEGATIVE); THC Cannibis NEGATIVE (NEGATIVE)
--- NOTE | 2018-12-07 15:32 | EDPHYS ---
Physician Documentation [facility] Name: Shilpa Richardson Age: 73 yrs Sex: Female : 1945 Arrival Date: 12/07/2018 Time: 12:08 Bed 8 Private MD: ED Physician Evaristo Zendejas HPI: 12/07 12:31 This 73 yrs old Female presents to ER via EMS with complaints of Altered rn Mental Status. 12:31 The patient presents with agitation, confusion, decreased mental status, rn disorientation. Onset: The symptoms/episode began/occurred yesterday. Possible causes: unknown. Current symptoms: In the emergency department the patient's symptoms are unchanged from the initial presentation. The patient has experienced similar episodes in the past. Sister called 911 because becoming combative and agitated, is an alcoholic, unclear if drinking or not drinking lately, patient uncooperative and doesn't answer any questions, did tell EMS/nurse that "took some pills". . Historical: - Allergies: 12:33 Erythromycin; tw2 12:33 PENICILLINS; tw2 12:33 Tape; tw2 12:33 adhesive tape; tw2 12:33 Codeine; tw2 12:33 Diphenhydramine; tw2 - Home Meds: 17:18 simvastatin 20 mg Oral tab once daily [Active]; clonidine HCl 0.1 mg Oral tab [Active]; tw2 Combivent Inhl [Active]; baclofen 10 mg Oral tab BID [Active]; alprazolam 1 mg Oral tab BID [Active]; amlodipine 2.5 mg tab 1 tab once daily [Active]; atenolol 25 mg Oral tab once daily [Active]; hydrocodone-acetaminophen 7.5-325 mg/15 mL Oral soln take one tablespoon TID [Active]; Lyrica 100mg Oral 2 times per day [Active]; meloxicam 15 mg Oral tab 1 tab once daily [Active]; Restasis ophthalmic 1 drop 2 times per day [Active]; Silenor 6 mg Oral tab 1 tab once daily [Active]; Stiolto Respimat 2.5-2.5 mcg/actuation inhalation mist 2 puffs once daily [Active]; - PMHx: 12:33 Anxiety; Carotid blockage; Alcoholism; Chronic pain; COPD; Depression; Hypertension; tw2 - Immunization history:: Adult Immunizations. - Social history:: Smoking status: . - Ebola Screening: : Patient denies travel to an Ebola-affected area in the 21 days before illness onset. - Unable to obtain history due to: altered mental status. ROS: 12:31 Unable to obtain ROS due to altered mental status. rn Exam: 12:31 Constitutional: Cachectic female, appears agitated, uncooperative. Head/Face: rn Normocephalic, atraumatic. Eyes: Dilated pupils, equal and reactive, no nystagmus. ENT: dry MM, no stridor Cardiovascular: tachycardic, regular, no murmur Respiratory: Lungs have equal breath sounds bilaterally, clear to auscultation. Mild tachypnea. Abdomen/GI: soft, non-tender MS/ Extremity: Pulses equal, no cyanosis. Neurovascular intact. Full, normal range of motion. Equal circumference. Neuro: Awake, agitated and confused, uncooperative, + bilateral coarse tremors. Vital Signs: 12:08 BP 145 / 112; Pulse 132; Resp 20; Temp 98.2(O); Pulse Ox 93% on R/A; Weight 45.36 kg tw2 (R); Pain 0/10; 13:00 BP 157 / 109; Pulse 122; Resp 17; Pulse Ox 97% on R/A; tw2 13:35 BP 167 / 96; Pulse 115; Resp 15; Pulse Ox 100% on R/A; tw2 15:15 BP 190 / 96; Pulse 117; Resp 19 S; Pulse Ox 96% on R/A; Pain 0/10; iw 16:15 BP 147 / 93; Pulse 120; Resp 17; Pulse Ox 99% on R/A; tw2 17:21 BP 128 / 87; Pulse 118; Resp 17; Pulse Ox 99% on R/A; tw2 MDM: 12:10 Patient medically screened. rn 15:26 Differential Diagnosis: electrolyte abnormality, alcohol intoxication, UTI, volume rn depletion, ETOH withdrawal, adverse effects of medication. Data reviewed: vital signs, nurses notes, lab test result(s), EKG, radiologic studies, CT scan, plain films, and as a result, I will admit patient. Counseling: I had a detailed discussion with the patient and/or guardian regarding: the historical points, exam findings, and any diagnostic results supporting the discharge/admit diagnosis, lab results, radiology results, the need for further work-up and treatment in the hospital. Response to treatment: the patient's symptoms have mildly improved after treatment, and as a result, I will admit patient. Admission orders: after a detailed discussion of the patient's condition and case, the admit orders are written by me. ED course: Admitted to Dr. Irene for continued abnormal vitals, unclear etiologygiven patient reports no ETOH for months, but hypertensive/tachycardic, hx of alcoholism and improvement of symptoms with ativan. Fluids given for abd pain/anorexia/vomiting/dehdyration.. 12/07 12:15 Order name: Magnesium; Complete Time: 14:12 rn 12/07 12:15 Order name: Basic Metabolic Panel; Complete Time: 14:12 rn 12/07 12:15 Order name: CBC with Diff rn 12/07 12:15 Order name: CPK; Complete Time: 14:12 rn 12/07 12:15 Order name: Hepatic Function; Complete Time: 14:12 rn 12/07 12:15 Order name: Lipase; Complete Time: 14:12 rn 12/07 12:15 Order name: Troponin (emerg Dept Use Only); Complete Time: 14:12 rn 12/07 12:15 Order name: ETOH Level; Complete Time: 14:46 rn 12/07 12:15 Order name: Acetaminophen; Complete Time: 14:12 rn 12/07 12:15 Order name: PT-INR; Complete Time: 14:46 rn 12/07 12:15 Order name: Ptt, Activated; Complete Time: 14:46 rn 12/07 12:15 Order name: Salicylate; Complete Time: 14:12 rn 12/07 12:15 Order name: Urine Drug Screen rn 12/07 13:30 Order name: CBC Smear Scan EDMS 12/07 12:15 Order name: CT Head Brain wo Cont; Complete Time: 13:08 rn 12/07 12:15 Order name: EKG; Complete Time: 12:16 rn 12/07 12:15 Order name: Cardiac monitoring; Complete Time: 12:38 rn 12/07 12:15 Order name: EKG - Nurse/Tech; Complete Time: 12:43 rn 12/07 12:15 Order name: IV Saline Lock; Complete Time: 14:45 rn 12/07 12:15 Order name: Labs collected and sent; Complete Time: 14:45 rn 12/07 12:15 Order name: NPO; Complete Time: 12:43 rn 12/07 12:15 Order name: O2 Per Protocol; Complete Time: 12:43 rn 12/07 12:15 Order name: O2 Sat Monitoring; Complete Time: 12:43 rn 12/07 12:15 Order name: XRAY Chest (1 view); Complete Time: 13:08 rn 12/07 13:24 Order name: CT Abd/Pelvis - Without Cont; Complete Time: 14:12 rn 12/07 15:08 Order name: Urine Dipstick--Ancillary (enter results) bd 12/07 15:16 Order name: Diet Regular; Complete Time: 15:17 iw 12/07 12:15 Order name: Urine Dipstick-Ancillary (obtain specimen); Complete Time: 15:16 rn Administered Medications: 13:15 Drug: NS 0.9% 1000 ml Route: IV; Rate: 1000 ml; Site: right antecubital; tw2 14:56 Follow up: Response: No adverse reaction; IV Status: Completed infusion; IV Intake: tw2 1000ml 13:15 Drug: Ativan 1 mg Route: IVP; Site: left antecubital; tw2 14:57 Follow up: Response: No adverse reaction tw2 15:33 Drug: Ativan 1 mg Route: IVP; Site: left antecubital; tw2 17:24 Follow up: Response: No adverse reaction tw2 Disposition: 12/07/18 15:32 Hospitalization ordered by Crystal Irene for Inpatient Admission. Preliminary diagnosis are Dehydration, Altered mental status, unspecified. - Bed requested for Telemetry/MedSurg (Inpatient). - Status is Inpatient Admission. tw2 - Condition is Stable. - Problem is new. - Symptoms have improved. UTI on Admission? No Signatures: Dispatcher [employer] EDMS Hollie Kumar Roman, MD MD rn Wise, Tara, RN RN tw2 Corrections: (The following items were deleted from the chart) 16:55 15:32 Hospitalization Ordered by Crystal Irene MD for Inpatient Admission. Preliminary bd diagnosis is Dehydration; Altered mental status, unspecified. Bed requested for Telemetry/MedSurg (Inpatient). Status is Inpatient Admission. Condition is Stable. Problem is new. Symptoms have improved. UTI on Admission? No. rn 17:42 16:55 12/07/2018 15:32 Hospitalization Ordered by Crystal Irene MD for Inpatient tw2 Admission. Preliminary diagnosis is Dehydration; Altered mental status, unspecified. Bed requested for Telemetry/MedSurg (Inpatient). Status is Inpatient Admission. Condition is Stable. Problem is new. Symptoms have improved. UTI on Admission? No. bd
--- NOTE | 2018-12-07 15:32 | ER ---
Nurse's Notes [facility] Name: Shilpa Richardson Age: 73 yrs Sex: Female : 1945 Arrival Date: 12/07/2018 Time: 12:08 Bed 8 Private MD: Diagnosis: Dehydration;Altered mental status, unspecified Presentation: 12/07 12:08 Presenting complaint: EMS states: was called in by her sister for altered mental tw2 status, she was combative, asulting and biting her sister and throwing things, sister states that she noticed her becoming altered since yesterday, she is pale cool to the touch, pupils are dilated, tachy on monitor. Transition of care: patient was not received from another setting of care. Onset of symptoms was December 07, 2018. Risk Assessment: Do you want to hurt yourself or someone else? Patient reports no desire to harm self or others. Initial Sepsis Screen:. Care prior to arrival: None. 12:08 Method Of Arrival: EMS: [facility] tw2 12:08 Acuity: PATRICIA 2 tw2 12:37 Initial Sepsis Screen: Does the patient meet any 2 criteria? Altered Mental Status. HR tw2 > 90 bpm. Yes Does the patient have a suspected source of infection? No. Patient's initial sepsis screen is negative. If YES to both, name of provider notified: Evaristo Zendejas MD Triage Assessment: 12:08 General: Appears in no apparent distress. slender, Behavior is anxious. Pain: Complains tw2 of pain in abdomen. EENT: pupils are dilated. Neuro: Level of Consciousness is awake, alert, obeys commands, Oriented to person. Cardiovascular: Heart tones S1 S2 Patient's skin is warm and dry. Respiratory: Airway is patent Respiratory effort is even, unlabored, Respiratory pattern is regular, symmetrical, Breath sounds are clear bilaterally. GI: Reports nausea, vomiting. : No signs and/or symptoms were reported regarding the genitourinary system. Derm: Skin is fragile, is thin, Skin is dry, Skin temperature is cool. Musculoskeletal: Range of motion: intact in all extremities. Historical: - Allergies: 12:33 Erythromycin; tw2 12:33 PENICILLINS; tw2 12:33 Tape; tw2 12:33 adhesive tape; tw2 12:33 Codeine; tw2 12:33 Diphenhydramine; tw2 - Home Meds: 17:18 simvastatin 20 mg Oral tab once daily [Active]; clonidine HCl 0.1 mg Oral tab [Active]; tw2 Combivent Inhl [Active]; baclofen 10 mg Oral tab BID [Active]; alprazolam 1 mg Oral tab BID [Active]; amlodipine 2.5 mg tab 1 tab once daily [Active]; atenolol 25 mg Oral tab once daily [Active]; hydrocodone-acetaminophen 7.5-325 mg/15 mL Oral soln take one tablespoon TID [Active]; Lyrica 100mg Oral 2 times per day [Active]; meloxicam 15 mg Oral tab 1 tab once daily [Active]; Restasis ophthalmic 1 drop 2 times per day [Active]; Silenor 6 mg Oral tab 1 tab once daily [Active]; Stiolto Respimat 2.5-2.5 mcg/actuation inhalation mist 2 puffs once daily [Active]; - PMHx: 12:33 Anxiety; Carotid blockage; Alcoholism; Chronic pain; COPD; Depression; Hypertension; tw2 - Immunization history:: Adult Immunizations. - Social history:: Smoking status: . - Ebola Screening: : Patient denies travel to an Ebola-affected area in the 21 days before illness onset. - Unable to obtain history due to: altered mental status. Screenin:37 Abuse screen: Denies threats or abuse. Nutritional screening: No deficits noted. tw2 Tuberculosis screening: No symptoms or risk factors identified. Fall Risk Secondary diagnosis (15 points) impaired mobility. Assessment: 12:36 Reassessment: see triage assessment. tw2 15:14 Reassessment: Patient appears in no apparent distress at this time. Patient and/or iw family updated on plan of care and expected duration. Pain level reassessed. Patient is alert, oriented x 3, equal unlabored respirations, skin warm/dry/pink. pt requesting something to eat, denies need for pain medication, denies pain, denies need for warm blanket. Vital Signs: 12:08 BP 145 / 112; Pulse 132; Resp 20; Temp 98.2(O); Pulse Ox 93% on R/A; Weight 45.36 kg tw2 (R); Pain 0/10; 13:00 BP 157 / 109; Pulse 122; Resp 17; Pulse Ox 97% on R/A; tw2 13:35 BP 167 / 96; Pulse 115; Resp 15; Pulse Ox 100% on R/A; tw2 15:15 BP 190 / 96; Pulse 117; Resp 19 S; Pulse Ox 96% on R/A; Pain 0/10; iw 16:15 BP 147 / 93; Pulse 120; Resp 17; Pulse Ox 99% on R/A; tw2 17:21 BP 128 / 87; Pulse 118; Resp 17; Pulse Ox 99% on R/A; tw2 ED Course: 12:08 Patient arrived in ED. tw2 12:08 Bed in low position. Call light in reach. Side rails up X2. oil changer on. Pulse tw2 ox on. NIBP on. Warm blanket given. 12:10 Evaristo Zendejas MD is Attending Physician. rn 12:17 EKG done, by neurology technologist. reviewed by Evaristo Zendejas MD. at1 12:[address] via stretcher. 12:28 Analisa Jimenes, ANJUM is Primary Nurse. tw2 12:30 Triage completed. tw2 12:30 Missed attempt(s): 20 gauge in right antecubital area. Bleeding controlled, band aid jp3 applied, catheter tip intact. 12:31 Arm band placed on. tw2 12:40 CT completed. Patient tolerated procedure well. Patient moved to CT via stretcher. Patient moved back from CT. 12:41 CT Head Brain wo Cont In Process Unspecified. EDMS 12:43 X-ray completed. Patient tolerated procedure well. Patient moved back from radiology. mh1 12:44 XRAY Chest (1 view) In Process Unspecified. EDMS 12:45 Inserted saline lock: 22 gauge in left antecubital area, using aseptic technique. Blood jp3 collected. drawn by immigration paralegal Oh. 12:45 Initial lab(s) drawn, by ED staff, sent to lab. jp3 13:51 CT Abd/Pelvis - Without Cont In Process Unspecified. EDMS 15:00 Urine collected: clean catch specimen, clear, cassie colored, Amount Voided: 210mL. jp3 15:22 Urine Drug Screen Sent. jp3 15:32 Crystal Irene MD is Hospitalizing Provider. rn 16:33 IV discontinued, intact, bleeding controlled, No redness/swelling at site. Pressure sg dressing applied, pt pulled IV at this time, no iv medications ordered, will wait until prior to leaving ER before attempted new iv. 17:12 No provider procedures requiring assistance completed. tw2 17:41 Inserted saline lock: 24 gauge in right antecubital area, using aseptic technique. tw2 ,using aseptic technique. per Daniel Casiano Blood collected. Administered Medications: 13:15 Drug: NS 0.9% 1000 ml Route: IV; Rate: 1000 ml; Site: right antecubital; tw2 14:56 Follow up: Response: No adverse reaction; IV Status: Completed infusion; IV Intake: tw2 1000ml 13:15 Drug: Ativan 1 mg Route: IVP; Site: left antecubital; tw2 14:57 Follow up: Response: No adverse reaction tw2 15:33 Drug: Ativan 1 mg Route: IVP; Site: left antecubital; tw2 17:24 Follow up: Response: No adverse reaction tw2 Intake: 14:56 IV: 1000ml; Total: 1000ml. tw2 Outcome: 15:32 Decision to Hospitalize by Provider. rn 17:22 Admitted to Med/surg accompanied by daniel, via wheelchair, room 218, on monitor, Report tw2 called to ANJUM Palomino 17:22 Condition: stable 17:22 Instructed on the need for admit. 17:42 Patient left the ED. tw2 Signatures: Dispatcher [employer] EDMS Saul Castañeda, RN Amy Llanos 1 Farzaneh Hwang Irene, RN RN iw Nieto, Roman, MD MD rn Gonzales, Amanda, it disaster recovery manager EKG Tat1 Analisa Jimenes RN RN tw2 Duke Rodgers jp3
[2018-12-07] MEDS ORDERED: LORazepam 2 MG/ML VIAL IV PRN (15:45)
[2018-12-07] MEDS ORDERED: FLUMAZENIL 0.1 MG/ML (5 mL VIAL) IV PRN (15:45)
[2018-12-07] MEDS ORDERED: ONDANSETRON 4 MG/2 ML VIAL IV PRN (15:45)
[2018-12-07 16:02] LABS: Urine Blood TRACE (NEG); Urine Glucose NEGATIVE (NEG); Urine Protein 1+ (NEG); Urine Specific Gravity 1.015 (1.005-1.030)
[2018-12-07 18:21] VITALS: BMI 29.2
[2018-12-07 20:16] LABS: Blood Morphology Comment NOT SEEN (NOT SEEN); Platelet Estimate INCR; Urine White Blood Cell Casts OK
[2018-12-08] MEDS ORDERED: LORazepam 2 MG/ML VIAL IV ONE ×2 (01:28→01:29)
--- NOTE | 2018-12-08 05:07 | P.HP ---
Certification for Inpatient Patient admitted to: Observation With expected LOS: <2 Midnights Practitioner: I am a practitioner with admitting privileges, knowledge of patient current condition, hospital course, and medical plan of care. Services: Services provided to patient in accordance with Admission requirements found in Title 42 Section 412.3 of the Code of Federal Regulations Patient History Date of Service: 12/07/18 Reason for admission: acute encephalopathy History of Present Illness: Ms Richardson is a 73 years old woman with history of COPD, HTN, alcohol abuse, who was brought to ED by her sister due to AMS. The patient has been confused, anxious and agitated since this morning. No history of fever or chills. She is hypertensive and tachycardic. Lab work shows leukocytosis, but the patient is afebrile without any obvious signs of infection. Alcohol level is low. Allergies adhesive tape Allergy (Verified 11/28/18 21:48) blisters codeine Allergy (Verified 11/28/18 21:48) Itching diphenhydramine [From Benadryl] Allergy (Verified 11/28/18 21:48) Itching Penicillins Allergy (Verified 11/28/18 21:48) Anaphylaxis Erythromycin Allergy (Severe, Uncoded 11/28/18 21:48) Nausea/Vomiting Home Medications: Atenolol 1 tab PO NOON 12/07/18 Buspirone HCl [Buspar] 1 tab PO BID 12/07/18 Cyclobenzaprine [Flexeril*] 1 tab PO BID 12/07/18 Cyclosporine [Restasis] 1 drop EACH EYE BID 12/07/18 Fluoxetine HCl [Prozac*] 1 tab PO DAILY 12/07/18 Meloxicam 1 tab PO DAILY 12/07/18 Quetiapine [Seroquel*] 1 tab PO BEDTIME 12/07/18 Bimatoprost [Lumigan Opthalmic Drops*] 1 drop EACH EYE BEDTIME 12/08/18 Fluticasone/Umeclidin/Vilanter [Trelegy Ellipta 100-62.5-25] 1 puff IH DAILY 12/23 Ipratropium/Albuterol Sulfate [Combivent Respimat 20-100 Mcg] 1 puff IH DAILY PRN 12/08/18 LORazepam [Ativan*] 1 tab PO TID PRN 12/08/18 Simvastatin 1 tab PO DAILY 12/08/18 - Past Medical/Surgical History Diabetic: No -: COPD -: HTN -: Osteoporosis -: Depression with anxiety -: Carotid arterial disease -: Macular Degenartion -: Hyperlipidemia -: Cataracts -: Cataract sx Rt eye -: Carotid enterectomy -: Cholecystectomy -: C-sections x3 -: Tonsillectomy Psychosocial/ Personal History: She is , she has 2 children, she lives with a sister. She does not work. - Family History Father -: Heart disease, Lung disease Mother -: Stroke Notes: TIA's - Social History Smoking Status: Never smoker Alcohol use: Yes CD- Drugs: No Caffeine use: Yes Place of Residence: Home Review of Systems 10-point ROS is otherwise unremarkable Physical Examination - Vital Signs Temperature: 98.6 F Blood Pressure: 118/56 Pulse: 129 Respirations: 16 Pulse Ox (%): 94 - Physical Exam General: Alert, Moderate distress, Confused HEENT: Atraumatic, PERRLA, Mucous membr. moist/pink, EOMI, Sclerae nonicteric Neck: Supple, 2+ carotid pulse no bruit, No LAD, Without JVD or thyroid abnormality Respiratory: Clear to auscultation bilaterally, Normal air movement Cardiovascular: Regular rate/rhythm, Normal S1 S2 Gastrointestinal: Normal bowel sounds, No tenderness Musculoskeletal: No tenderness Integumentary: No rashes Neurological: Normal strength at 5/5 x4 extr, Normal tone, Normal affect Lymphatics: No axilla or inguinal lymphadenopathy - Studies Laboratory Data (last 24 hrs) 12/07/18 13:05: PT 12.1, INR 1.03, APTT 37.7 H 12/07/18 13:05: WBC 13.5 H D, Hgb 13.2 D, Hct 39.2 D, Plt Count 820 H D 12/07/18 13:05: Sodium 137, Potassium 3.8, BUN 16, Creatinine 1.33 H, Glucose 101, Magnesium 1.9 D, Total Bilirubin 1.0, AST 27, ALT 26, Alkaline Phosphatase 196 H, Lipase 189 Assessment and Plan - Problems (Diagnosis) (1) Alcohol abuse Onset Date: 04/05/18 Current Visit: No Status: Chronic (2) COPD (chronic obstructive pulmonary disease) Onset Date: 06/03/17 Current Visit: No Status: Chronic Qualifiers: COPD type: unspecified COPD Qualified Code(s): J44.9 - Chronic obstructive pulmonary disease, unspecified (3) Hypertension Onset Date: 06/03/17 Current Visit: No Status: Chronic Qualifiers: Hypertension type: essential hypertension (4) Acute encephalopathy Current Visit: Yes Status: Acute - Plan The patient will be admitted to the hospital due to acute encephalopathy, likely secondary to alcohol withdrawal. Continue close monitoring, order benzodiazepinas per protocol. - Advance Directives Does patient have a Living Will: Yes Does patient have a Durable POA for Healthcare: Yes - Code Status/Comfort Care Code Status Assessed: Yes Code Status: Full Code
[2018-12-08 08:00] LABS: Albumin 3.4 g/dL (3.4-5.0); Bilirubin Total 0.6 mg/dL (0.2-1.0); Potassium 3.1 mmol/L (3.5-5.1); Protein, Total 6.7 g/dL (6.4-8.2)
[2018-12-08 08:04] LABS: Absolute Lymphocytes (CBC) 1.4 K/uL (0.7-4.9); Absolute Monocytes 1.7 K/uL (0.1-1.3); Absolute Neutrophil 9.5 K/uL (1.8-8.0); Basophils % 0.4 % (0-1.3); Eosinophils % 0.7 % (0-4.4); Hematocrit 31.6 % (36.0-45.0); Lymphocytes % 11.2 % (15.3-44.8); MPV 7.2 fL (7.6-11.3); Monocytes % 13.1 % (3.3-12.3); RBC Red Blood Cell Count 3.33 M/uL (3.86-4.86)
[2018-12-08] MEDS ORDERED: HOME MED 1 EA UNK (Ipratropium/Albuterol Sulfate [Combivent Respimat 20-100 Mcg] 1 PUFF) IH PRN (08:31)
[2018-12-08] MEDS ORDERED: LORAZEPAM 0.5 MG TABLET PO PRN (08:31)
[2018-12-08] MEDS ORDERED: FLUOXETINE 10 MG CAP PO SCH (09:00)
[2018-12-08] MEDS ORDERED: HOME MED 1 EA UNK (Cyclosporine [Restasis] 1 DROP) EACH EYE SCH (09:00)
[2018-12-08] MEDS ORDERED: CYCLOBENZAPRINE 10 MG TAB PO SCH (09:00)
[2018-12-08] MEDS ORDERED: HOME MED 1 EA UNK (Fluticasone/Umeclidin/Vilanter [Trelegy Ellipta 100-62.5-25] 1 PUFF) IH SCH (09:00)
[2018-12-08] MEDS ORDERED: FOLIC ACID 1 MG TABLET PO SCH (09:00)
[2018-12-08] MEDS ORDERED: THIAMINE HCL 100 MG TABLET PO SCH (09:00)
[2018-12-08] MEDS ORDERED: BUSPIRONE HCL 5 MG TABLET PO SCH (10:00)
[2018-12-08] MEDS ORDERED: MELOXICAM 7.5 MG TAB PO SCH (10:00)
--- NOTE | 2018-12-08 10:23 | RAD REPORT ---
EXAM DESCRIPTION: RAD - Foot Left 2 View - 12/08/2018 10:14 am CLINICAL HISTORY: pain Pain and swelling COMPARISON: No comparisons FINDINGS: Diffuse osteopenia is present. Mild soft tissue swelling is seen along the dorsum of the m idfoot. No acute fracture or dislocation seen.
[2018-12-08 10:45] VITALS: O2SAT 96
[2018-12-08] MEDS ORDERED: POTASSIUM 25 MEQ EFFERV TAB PO ONE (12:00)
[2018-12-08] MEDS ORDERED: POTASSIUM CL SA 10 MEQ TAB PO ONE (12:00)
[2018-12-08] MEDS ORDERED: ATENOLOL 50 MG TAB PO SCH (12:00)
[2018-12-08 12:36] VITALS: BP 184/78
[2018-12-08 13:20] VITALS: TEMP 97
[2018-12-08] MEDS ORDERED: ATORVASTATIN 10 MG TAB PO SCH (21:00)
[2018-12-08] MEDS ORDERED: QUETIAPINE 100MG TAB PO SCH (21:00)
[2018-12-08] MEDS ORDERED: BIMATOPROST OPHTH DROPS/2.5 ML BTL OPTH SCH (21:00)
--- NOTE | 2018-12-09 05:57 | DS ---
Date of Discharge: 12/08/2018 Discharge Diagnoses: 1.Acute metabolic encephalopathy, resolved. 2.Alcohol abuse. 3.Chronic obstructive pulmonary disease, chronic bronchitis. 4.Essential hypertension. 5.Pain in the left foot. X-ray negative for any fractures. 6.Hypercholesterolemia, continue statin. Hospital Course: The patient is a 73-year-old female who was admitted to the hospital for altered me ntal status. The patient was brought in by the sister for confusion, anxiousness, and agitation. Sh e had elevated blood pressure and was tachycardic, felt to be withdrawing from alcohol. Her UDS show ed alcohol level less than 3, otherwise negative UDS. UA was negative. She did have some elevated c reatinine on admission, likely due to dehydration, which improved with IV fluid resuscitation. The p atient also had some hypokalemia which was replaced. The patient had minimally elevated white count which was likely reactive, which was trending down. The patient did complain of some pain in her lef t foot. Denied any trauma. X-ray did not show any fractures, did show diffuse osteopenia. Her othe r workup including CT scan of the abdomen and pelvis did not show any significant changes. Head CT s can was also negative for any acute bleed or ischemia. Did show some deep white matter chronic micro vascular ischemic changes. Her chest x-ray was clear. The patient was doing better. Her mental sta tus improved. She was back to her baseline. The patient did request a switch in her home health age ncy as she was unsatisfied with her previous home health agency. wafer polishing lead worker was involved to help set that up. The patient was then cleared for discharge and was sent home in a stable condition. Th e patient again refuses any sort of correction facility placement or rehab. Medications: As per medication reconciliation list. Followup: Follow up with primary care physician in 2-3 days. Return to ER for worsening condition. Diet: Heart healthy. Activity: Fall precautions. Physical Examination: General: Awake, alert, oriented x3, not in any acute distress. Appears older than stated age, frail female. CV: S1, S2. Peripheral pulses present. Respiratory: Moving air well bilaterally. No wheezing. Gastrointestinal: Abdomen is soft, nontender, nondistended. Positive bowel sounds. Extremities: No clubbing, cyanosis, or edema. Neurologic: Nonfocal. SA/MODL Voice ID: [id number] Report ID: [id number]
--- NOTE | 2018-12-13 11:16 | EKG ---
Test Date: 2018-12-07 Test Time: 12:09:16 Sales Inspector: ANGEL/S MEASUREMENT RESULTS: Intervals: Rate: 129 DC: 158 QRSD: 66 QT: 310 QTc: 454 [place]: P: 71 DC: 158 QRS: 73 T: 267 INTERPRETIVE STATEMENTS: Sinus tachycardia Left ventricular hypertrophy with repolarization abnormality Abnormal ECG Compared to ECG 11/28/2018 16:58:38 Early repolarization now present ST (T wave) deviation no longer present Possible ischemia no longer present Electronically Signed On 12-07-18 16:59:10 CDT by Kee Haile
== END 2018-12-08 14:15 | disposition home health service (06) ==
LOC: ER 12:06 → ERHOLD 15:42 → 2ND 17:23
PROVIDERS: ADMIT Family Medicine; ATTEND Family Medicine
DX: F10.239 Alcohol dependence with withdrawal, unspecified (principal); J44.9 Chronic obstructive pulmonary disease, unspecified; I10 Essential (primary) hypertension; M79.672 Pain in left foot; E78.00 Pure hypercholesterolemia, unspecified; E86.0 Dehydration; E78.5 Hyperlipidemia, unspecified; F41.8 Other specified anxiety disorders; G93.40 Encephalopathy, unspecified; G93.41 Metabolic encephalopathy; I25.10 Atherosclerotic heart disease of native coronary artery without angina pectoris; M85.80 Other specified disorders of bone density and structure, unspecified site; Z82.3 Family history of stroke; Z82.49 Family history of ischemic heart disease and other diseases of the circulatory system; Z88.0 Allergy status to penicillin; Z88.3 Allergy status to other anti-infective agents; Z88.5 Allergy status to narcotic agent; Z88.8 Allergy status to other drugs, medicaments and biological substances; Z90.49 Acquired absence of other specified parts of digestive tract; Z91.048 Other nonmedicinal substance allergy status
CPT/HCPCS: 96361; 93005; 85025 ×2; 80048; 36415; 80320; 83735; 82550; 80329 ×2; 85610; 80076; 80307 ×8; 85730; 81003; 84484; 83690; 80053; 70450; 74176; 71045; 73620; 94760 ×3; 96374; 99285; J7030; G0378 ×2

== ENCOUNTER 2018-12-10 09:47 | Observation (INO) | payer OTHER ==
[2018-12-10 10:40] LABS: Absolute Lymphocytes (CBC) 0.8 K/uL (0.7-4.9); Absolute Monocytes 0.8 K/uL (0.1-1.3); Absolute Neutrophil 7.8 K/uL (1.8-8.0); Basophils % 0.7 % (0-1.3); Eosinophils % 0.4 % (0-4.4); Hematocrit 33.9 % (36.0-45.0); Lymphocytes % 8.4 % (15.3-44.8); MPV 7.1 fL (7.6-11.3); Monocytes % 7.9 % (3.3-12.3); RBC Red Blood Cell Count 3.59 M/uL (3.86-4.86)
[2018-12-10 10:59] LABS: ALT/SGPT 22 U/L (12-78); AST/SGOT 24 U/L (15-37); Albumin 3.6 g/dL (3.4-5.0); Alkaline Phosphatase 153 U/L (45-117); BUN Blood Urea Nitrogen 13 mg/dL (7-18); Bicarbonate 27 mmol/L (21-32); Bilirubin Direct 0.2 mg/dL (0-0.2); Bilirubin Total 0.6 mg/dL (0.2-1.0); Glucose Level 120 mg/dL (74-106); Lipase 284 U/L (73-393); Magnesium 1.6 mg/dL (1.8-2.4); NT PRO-BNP 1516 pg/mL (<125); Protein, Total 7.1 g/dL (6.4-8.2); Sodium Level 133 mmol/L (136-145); Troponin (Emerg Dept Use Only) < 0.02 ng/mL (0.0-0.045)
[2018-12-10] MEDS ORDERED: NA CHLORIDE 0.9% 1,000 ML ONE (10:59)
[2018-12-10 11:11] LABS: Protime INR 0.99
--- NOTE | 2018-12-10 11:11 | EDPHYS ---
Physician Documentation [facility] Name: Shilpa Richardson Age: 73 yrs Sex: Female : 1945 Arrival Date: 12/10/2018 Time: 09:48 Bed 17 Private MD: ED Physician Hector Gray HPI: 12/10 10:57 This 73 yrs old Female presents to ER via EMS with complaints of Anxiety, priti Shortness Of Breath. 10:57 The patient has shortness of breath at rest, with light activity. Onset: The priti symptoms/episode began/occurred just prior to arrival, this morning. Duration: The symptoms are continuous, and are steadily getting worse. The patient's shortness of breath is aggravated by coughing, anxiety. Associated signs and symptoms: Pertinent positives: chest pain, non-productive cough. The patient has experienced similar episodes in the past, several times. Historical: - Allergies: 09:51 adhesive tape; la1 09:51 Codeine; la1 09:51 Diphenhydramine; la1 09:51 Erythromycin; la1 09:51 PENICILLINS; la1 09:51 Tape; la1 - PMHx: 09:51 Alcoholism; Anxiety; Carotid blockage; Chronic pain; Depression; Hypertension; COPD; la1 - Immunization history:: Adult Immunizations up to date. - Social history:: Smoking status: unknown. - Ebola Screening: : No symptoms or risks identified at this time. - Family history:: not pertinent. ROS: 10:57 Constitutional: Negative for fever, chills, and weight loss, Eyes: Negative for injury, priti pain, redness, and discharge, ENT: Negative for injury, pain, and discharge, Neck: Negative for injury, pain, and swelling, Abdomen/GI: Negative for abdominal pain, nausea, vomiting, diarrhea, and constipation, Back: Negative for injury and pain, : Negative for injury, bleeding, discharge, and swelling, MS/Extremity: Negative for injury and deformity, Skin: Negative for injury, rash, and discoloration, Neuro: Negative for headache, weakness, numbness, tingling, and seizure, Psych: Negative for depression, anxiety, suicide ideation, homicidal ideation, and hallucinations, Allergy/Immunology: Negative for hives, rash, and allergies, Endocrine: Negative for neck swelling, polydipsia, polyuria, polyphagia, and marked weight changes, Hematologic/Lymphatic: Negative for swollen nodes, abnormal bleeding, and unusual bruising. 10:57 Cardiovascular: Positive for chest pain. 10:57 Respiratory: Positive for shortness of breath, at rest. Exam: 10:57 Constitutional: This is a well developed, well nourished patient who is awake, alert, priti and in no acute distress. Head/Face: Normocephalic, atraumatic. Eyes: Pupils equal round and reactive to light, extra-ocular motions intact. Lids and lashes normal. Conjunctiva and sclera are non-icteric and not injected. Cornea within normal limits. Periorbital areas with no swelling, redness, or edema. ENT: Nares patent. No nasal discharge, no septal abnormalities noted. Tympanic membranes are normal and external auditory canals are clear. Oropharynx with no redness, swelling, or masses, exudates, or evidence of obstruction, uvula midline. Mucous membranes moist. Neck: Trachea midline, no thyromegaly or masses palpated, and no cervical lymphadenopathy. Supple, full range of motion without nuchal rigidity, or vertebral point tenderness. No Meningismus. Chest/axilla: Normal chest wall appearance and motion. Nontender with no deformity. No lesions are appreciated. Cardiovascular: Regular rate and rhythm with a normal S1 and S2. No gallops, murmurs, or rubs. Normal PMI, no JVD. No pulse deficits. Abdomen/GI: Soft, non-tender, with normal bowel sounds. No distension or tympany. No guarding or rebound. No evidence of tenderness throughout. Back: No spinal tenderness. No costovertebral tenderness. Full range of motion. Female : Normal external genitalia. Skin: Warm, dry with normal turgor. Normal color with no rashes, no lesions, and no evidence of cellulitis. MS/ Extremity: Pulses equal, no cyanosis. Neurovascular intact. Full, normal range of motion. Neuro: Awake and alert, GCS 15, oriented to person, place, time, and situation. Cranial nerves II-XII grossly intact. Motor strength 5/5 in all extremities. Sensory grossly intact. Cerebellar exam normal. Normal gait. Psych: Awake, alert, with orientation to person, place and time. Behavior, mood, and affect are within normal limits. 10:57 Respiratory: the patient does not display signs of respiratory distress, Respirations: labored breathing, that is mild, Breath sounds: decreased breath sounds, rhonchi, that are mild, are scattered. 11:00 Musculoskeletal/extremity: DVT Exam: No signs of deep vein thrombosis. no pain, no priti swelling, no tenderness, negative Homans' sign noted on exam, no appreciated bluish discoloration, no erythema, no increased warmth. Vital Signs: 09:52 BP 181 / 90; Pulse 85; Resp 18; Pulse Ox 98% on R/A; Weight 38.56 kg; Height 5 ft. 0 la1 in. (152.40 cm); 11:15 BP 145 / 85; Pulse 81; Resp 20; Pulse Ox 97% on R/A; aj1 12:03 BP 162 / 88; Pulse 78; Resp 20; Pulse Ox 98% on R/A; aj1 13:05 BP 155 / 82; Pulse 85; Resp 20; Pulse Ox 97% on R/A; aj1 09:52 Body Mass Index 16.60 (38.56 kg, 152.40 cm) la1 MDM: 10:00 Patient medically screened. [facility] 11:00 Data reviewed: vital signs, nurses notes, lab test result(s), EKG, radiologic studies, [facility] plain films. 12/10 09:59 Order name: Basic Metabolic Panel; Complete Time: 11:05 [facility] 12/10 09:59 Order name: CBC with Diff; Complete Time: 11:13 [facility] 12/10 09:59 Order name: LFT's; Complete Time: 11:05 [facility] 12/10 09:59 Order name: Magnesium; Complete Time: 11:05 [facility] 12/10 09:59 Order name: NT PRO-BNP; Complete Time: 11:05 [facility] 12/10 09:59 Order name: PT-INR; Complete Time: 12:26 [facility] 12/10 09:59 Order name: Troponin (emerg Dept Use Only); Complete Time: 11:05 [facility] 12/10 09:59 Order name: Lipase; Complete Time: 11:05 [facility] 12/10 09:59 Order name: D-Dimer; Complete Time: 12:26 [facility] 12/10 09:59 Order name: Urine Culture [facility] 12/10 11:01 Order name: Urine Dipstick--Ancillary (enter results); Complete Time: 12:26 eb 12/10 11:19 Order name: UDS; Complete Time: 12:26 [facility] 12/10 11:19 Order name: Alcohol Level [facility] 12/10 09:59 Order name: XRAY Chest (1 view); Complete Time: 12:26 [facility] 12/10 09:59 Order name: EKG; Complete Time: 10:00 [facility] 12/10 11:14 Order name: US Extremity Venous W Compression Claudio priti 12/10 11:14 Order name: CT Chest For PE Angio; Complete Time: 12:26 [facility] 12/10 11:21 Order name: Diet Regular; Complete Time: 11:21 aj 12/10 13:39 Order name: US EDMS 12/10 09:59 Order name: Cardiac monitoring; Complete Time: 10:32 [facility] 12/10 09:59 Order name: EKG - Nurse/Tech; Complete Time: 10:33 [facility] 12/10 09:59 Order name: IV Saline Lock; Complete Time: 10:33 [facility] 12/10 09:59 Order name: Labs collected and sent; Complete Time: 10:40 [facility] 12/10 09:59 Order name: O2 Per Protocol; Complete Time: 10:40 [facility] 12/10 09:59 Order name: O2 Sat Monitoring; Complete Time: 10:40 [facility] 12/10 09:59 Order name: Urine Dipstick-Ancillary (obtain specimen); Complete Time: 10:50 [facility] Administered Medications: 11:14 Drug: NS 0.9% 1000 ml Route: IV; Rate: 125 ml/hr; Site: right antecubital; aj1 14:48 Follow up: IV Status: Infusion continued upon admission; IV Intake: 300ml aj1 11:32 Drug: Magnesium Sulfate 1 grams Route: IVPB; Infused Over: 1 hrs; Site: right aj1 antecubital; 14:50 Follow up: IV Status: Infusion continued upon admission aj1 11:33 Drug: Pepcid 20 mg Route: IVP; Site: right antecubital; aj1 12:30 Follow up: Response: No adverse reaction aj1 11:33 Not Given (Patient Refused): Lovenox 1 mg/kg Sub-Q once aj1 11:33 Drug: SOLU-Medrol 2 mg/kg Route: IVP; Site: right antecubital; aj1 12:30 Follow up: Response: No adverse reaction aj1 11:34 Drug: Lopressor 25 mg Route: PO; aj1 12:30 Follow up: Response: No adverse reaction aj1 11:34 Drug: Aspirin Chewable Tablet 162 mg Route: PO; aj1 12:30 Follow up: Response: No adverse reaction aj1 12:07 Drug: Thiamine 100 mg Route: IV; Rate: bolus; Site: right antecubital; aj1 12:30 Follow up: IV Status: Completed infusion; IV Intake: 20ml aj1 12:09 Drug: Xopenex 1.25 mg Route: Inhalation; aj1 12:09 Drug: AtroVENT Aerosol 0.5 mg Route: Inhalation; aj1 14:51 Follow up: Response: No adverse reaction aj1 Disposition: 12/10/18 11:10 Hospitalization ordered by Crystal Irene for Inpatient Admission. Preliminary diagnosis are Anxiety disorder, unspecified, Chest pain, unspecified, Dyspnea, Hypomagnesemia, Chronic obstructive pulmonary disease with (acute) exacerbation. - Bed requested for Telemetry/MedSurg (Inpatient). - Status is Inpatient Admission. aj1 - Condition is Stable. - Problem is new. - Symptoms have improved. UTI on Admission? No Signatures: Dispatcher [employer] EDNH Rachel Russell RN RN aj1 Hector Gray MD MD cha Attema, Lee, RN RN laSharee Sandy RN RN Araceli Fontaine Corrections: (The following items were deleted from the chart) 12:12 10:00 Arterial Blood Gas+[id number] ordered. [facility] ED[facility] 12:31 11:10 Hospitalization Ordered by Crystal Irene MD for Inpatient Admission. Preliminary eb diagnosis is Anxiety disorder, unspecified; Chest pain, unspecified; Dyspnea; Hypomagnesemia; Chronic obstructive pulmonary disease with (acute) exacerbation. Bed requested for Telemetry/MedSurg (Inpatient). Status is Inpatient Admission. Condition is Stable. Problem is new. Symptoms have improved. UTI on Admission? No. priti 14:06 12:31 12/10/2018 11:10 Hospitalization Ordered by Crystal Irene MD for Inpatient df Admission. Preliminary diagnosis is Anxiety disorder, unspecified; Chest pain, unspecified; Dyspnea; Hypomagnesemia; Chronic obstructive pulmonary disease with (acute) exacerbation. Bed requested for Telemetry/MedSurg (Inpatient). Status is Inpatient Admission. Condition is Stable. Problem is new. Symptoms have improved. UTI on Admission? No. eb 14:52 14:06 12/10/2018 11:10 Hospitalization Ordered by Crystal Irene MD for Inpatient aj1 Admission. Preliminary diagnosis is Anxiety disorder, unspecified; Chest pain, unspecified; Dyspnea; Hypomagnesemia; Chronic obstructive pulmonary disease with (acute) exacerbation. Bed requested for Telemetry/MedSurg (Inpatient). Status is Inpatient Admission. Condition is Stable. Problem is new. Symptoms have improved. UTI on Admission? No. df
--- NOTE | 2018-12-10 11:11 | ER ---
Nurse's Notes [facility] Name: Shilpa Richardson Age: 73 yrs Sex: Female : 1945 Arrival Date: 12/10/2018 Time: 09:48 Bed 17 Private MD: Diagnosis: Anxiety disorder, unspecified;Chest pain, unspecified;Dyspnea;Hypomagnesemia;Chronic obstructive pulmonary disease with (acute) exacerbation Presentation: 12/10 09:49 Presenting complaint: EMS states: Pt was at home with sister and they got in a la1 disagreement and she got agitated and worked up, Sister called 911 with concern for her breathing. Pt RA sats 98%, lungs CTA OBEY. Transition of care: patient was not received from another setting of care. Onset of symptoms was December 10, 2018. Risk Assessment: Do you want to hurt yourself or someone else? Patient reports no desire to harm self or others. Initial Sepsis Screen: Does the patient meet any 2 criteria? No. Patient's initial sepsis screen is negative. Does the patient have a suspected source of infection? No. Patient's initial sepsis screen is negative. Care prior to arrival: None. 09:49 Method Of Arrival: EMS: [facility] la1 09:49 Acuity: PATRICIA 3 la1 Historical: - Allergies: 09:51 adhesive tape; la1 09:51 Codeine; la1 09:51 Diphenhydramine; la1 09:51 Erythromycin; la1 09:51 PENICILLINS; la1 09:51 Tape; la1 - PMHx: 09:51 Alcoholism; Anxiety; Carotid blockage; Chronic pain; Depression; Hypertension; COPD; la1 - Immunization history:: Adult Immunizations up to date. - Social history:: Smoking status: unknown. - Ebola Screening: : No symptoms or risks identified at this time. - Family history:: not pertinent. Screenin:05 Abuse screen: Denies threats or abuse. Denies injuries from another. aj1 10:05 Nutritional screening: No deficits noted. Tuberculosis screening: No symptoms or risk aj1 factors identified. 14:47 Fall Risk Fall in past 12 months (25 points). No secondary diagnosis (0 pts). IV access aj1 (20 points). Ambulatory Aid- Crutches/Cane/Walker (15 pts). Gait- Impaired (20 pts.). Mental Status- Oriented to own ability (0 pts). Total Solorzano Fall Scale indicates High Risk Score (45 or more points). As available patient and family educated on Fall Prevention Program and Strategies. Assessment: 10:05 General: Appears in no apparent distress. comfortable, Behavior is cooperative, aj1 anxious. Pain: Denies pain. Neuro: Level of Consciousness is awake, alert, obeys commands, Oriented to person, place, time, situation. Cardiovascular: Reports shortness of breath, chest pain that has now resolved Heart tones S1 S2 present Patient's skin is warm and dry. Rhythm is regular. Respiratory: Airway is patent Respiratory effort is even, unlabored, Respiratory pattern is regular, symmetrical, Breath sounds are clear bilaterally. GI: No signs and/or symptoms were reported involving the gastrointestinal system. : No signs and/or symptoms were reported regarding the genitourinary system. EENT: No signs and/or symptoms were reported regarding the EENT system. Derm: No signs and/or symptoms reported regarding the dermatologic system. Skin is pink, warm \T\ dry. normal. Musculoskeletal: No signs and/or symptoms reported regarding the musculoskeletal system. Circulation, motion, and sensation intact. 11:05 Reassessment: Patient appears in no apparent distress at this time. No changes from aj1 previously documented assessment. Patient and/or family updated on plan of care and expected duration. Pain level reassessed. Patient is alert, oriented x 3, equal unlabored respirations, skin warm/dry/pink. 12:03 Reassessment: Patient appears in no apparent distress at this time. No changes from aj1 previously documented assessment. Patient and/or family updated on plan of care and expected duration. Pain level reassessed. Patient is alert, oriented x 3, equal unlabored respirations, skin warm/dry/pink. 13:07 Reassessment: Patient appears in no apparent distress at this time. No changes from aj1 previously documented assessment. Patient and/or family updated on plan of care and expected duration. Pain level reassessed. Patient is alert, oriented x 3, equal unlabored respirations, skin warm/dry/pink. 14:05 Reassessment: Patient appears in no apparent distress at this time. No changes from aj1 previously documented assessment. Patient and/or family updated on plan of care and expected duration. Pain level reassessed. Patient is alert, oriented x 3, equal unlabored respirations, skin warm/dry/pink. Vital Signs: 09:52 BP 181 / 90; Pulse 85; Resp 18; Pulse Ox 98% on R/A; Weight 38.56 kg; Height 5 ft. 0 la1 in. (152.40 cm); 11:15 BP 145 / 85; Pulse 81; Resp 20; Pulse Ox 97% on R/A; aj1 12:03 BP 162 / 88; Pulse 78; Resp 20; Pulse Ox 98% on R/A; aj1 13:05 BP 155 / 82; Pulse 85; Resp 20; Pulse Ox 97% on R/A; aj1 09:52 Body Mass Index 16.60 (38.56 kg, 152.40 cm) la1 ED Course: 09:48 Patient arrived in ED. la1 09:50 Triage completed. la1 09:52 Arm band placed on left wrist. la1 09:58 Hector Gray MD is Attending Physician. priti 10:05 Patient has correct armband on for positive identification. Bed in low position. Call aj1 light in reach. Side rails up X 1. dance entertainer on. Pulse ox on. NIBP on. 10:05 No provider procedures requiring assistance completed. Initial lab(s) drawn, by ga, aj1 sent to lab. Inserted saline lock: 20 gauge in right antecubital area, using aseptic technique. Blood collected. 10:20 Rachel Russell, ANJUM is Primary Nurse. aj1 10:58 X-ray completed. Portable x-ray completed in exam room. Patient tolerated procedure la2 well. 11:06 XRAY Chest (1 view) In Process Unspecified. EDMS 11:08 Crystal Irene MD is Hospitalizing Provider. priti 11:47 CT Chest For PE Angio In Process Unspecified. EDMS 13:33 Ultrasound completed. Patient tolerated well. sg3 14:46 Patient admitted, IV remains in place. aj1 14:47 Report given to ANJUM Jean on 4th floor. aj1 Administered Medications: 11:14 Drug: NS 0.9% 1000 ml Route: IV; Rate: 125 ml/hr; Site: right antecubital; aj1 14:48 Follow up: IV Status: Infusion continued upon admission; IV Intake: 300ml aj1 11:32 Drug: Magnesium Sulfate 1 grams Route: IVPB; Infused Over: 1 hrs; Site: right aj1 antecubital; 14:50 Follow up: IV Status: Infusion continued upon admission aj1 11:33 Drug: Pepcid 20 mg Route: IVP; Site: right antecubital; aj1 12:30 Follow up: Response: No adverse reaction aj1 11:33 Not Given (Patient Refused): Lovenox 1 mg/kg Sub-Q once aj1 11:33 Drug: SOLU-Medrol 2 mg/kg Route: IVP; Site: right antecubital; aj1 12:30 Follow up: Response: No adverse reaction aj1 11:34 Drug: Lopressor 25 mg Route: PO; aj1 12:30 Follow up: Response: No adverse reaction aj1 11:34 Drug: Aspirin Chewable Tablet 162 mg Route: PO; aj1 12:30 Follow up: Response: No adverse reaction aj1 12:07 Drug: Thiamine 100 mg Route: IV; Rate: bolus; Site: right antecubital; aj1 12:30 Follow up: IV Status: Completed infusion; IV Intake: 20ml aj1 12:09 Drug: Xopenex 1.25 mg Route: Inhalation; aj1 12:09 Drug: AtroVENT Aerosol 0.5 mg Route: Inhalation; aj1 14:51 Follow up: Response: No adverse reaction aj1 Intake: 12:30 IV: 20ml; Total: 20ml. aj1 14:48 IV: 300ml; Total: 320ml. aj1 Outcome: 11:10 Decision to Hospitalize by Provider. [facility] 14:47 Admitted to Tele accompanied by tech, via wheelchair, with chart. aj1 14:47 Condition: stable 14:47 Discharge instructions given to patient, Instructed on the need for admit, Demonstrated understanding of instructions. 14:52 Patient left the ED. aj1 Signatures: Dispatcher [employer] EDMS Rachel Russell RN RN [email or web address] Hector Gray MD MD cha Attema, Lee RN RN Rosio Sanchez Sarah 3
[2018-12-10] MEDS ORDERED: IPRATROPIUM BROM 0.5MG/2.5ML ONE (11:30)
[2018-12-10] MEDS ORDERED: LEVALBUTEROL 1.25 MG/3 ML NEB ONE (11:30)
[2018-12-10] MEDS ORDERED: ASPIRIN 81 MG CHEWABLE TABLET ONE (11:30)
[2018-12-10] MEDS ORDERED: MAGNESIUM SULFATE 1 gm IVPB 1 GM/100 ML BAG IV ONE (11:31)
[2018-12-10] MEDS ORDERED: ENOXAPARIN 40 MG/0.4 ML SQ ONE (11:31)
[2018-12-10] MEDS ORDERED: METHYLPREDNISOLONE 40 MG INJ ONE (11:31)
[2018-12-10] MEDS ORDERED: METOPROLOL TAR 25 MG TAB ONE (11:31)
[2018-12-10] MEDS ORDERED: FAMOTIDINE 20 MG/2 ML VIAL IV ONE (11:32)
--- NOTE | 2018-12-10 11:38 | RAD REPORT ---
EXAM DESCRIPTION: RAD - Chest Single View - 12/10/2018 11:06 am CLINICAL HISTORY: Dyspnea COMPARISON: December 07 TECHNIQUE: AP portable chest image was obtained 1046 hours . FINDINGS: Underlying COPD pattern has not changed. No focal mass, consolidation or failure. Heart an d vasculature are normal. No measurable pleural effusion and no pneumothorax. No acute bony abnormali ty seen. No acute aortic findings suspected. IMPRESSION: Prominent COPD similar to comparison.
[2018-12-10] MEDS ORDERED: THIAMINE 200 MG/2 ML INJ ONE (11:52)
--- NOTE | 2018-12-10 11:59 | RAD REPORT ---
EXAM DESCRIPTION: CT - Chest For Pe Angio - 12/10/2018 11:47 am CLINICAL HISTORY: COPD, shortness of breath COMPARISON: Chest films same date, CT study May 2017 TECHNIQUE: Dynamically enhanced 3 mm thick images of the chest were obtained during administration o f approximately 150mL Isovue 370 IV contrast. Coronal and oblique MIP reconstruction images were gene rated and reviewed. Exam utilizes a protocol to evaluate the pulmonary arterial tree. All CT scans are performed using dose optimization technique as appropriate and may include automated exposure control or mA/KV adjustment according to patient size. FINDINGS: No pulmonary emboli are identified. The aorta as imaged shows no acute or suspicious finding. No pericardial thickening or effusion. Prominent COPD changes are present without focal infiltrate or suspicious mass. Calcified granuloma o r calcified scarring in the posterior right upper lung field noted and stable. No pleural effusion or pleural thickening. No mediastinal or hilar suspicious masses. No chest wall masses or abnormal axillary lymphadenopathy. Bony degenerative changes are present. Scoliosis is present similar to comparison. No acute finding. IMPRESSION: No pulmonary emboli identified. Prominent COPD with no acute finding.
[2018-12-10 12:04] LABS: Barbiturates NEGATIVE (NEGATIVE); Benzodiazepines NEGATIVE (NEGATIVE); Cocaine NEGATIVE (NEGATIVE); METHAMPHETAM NEGATIVE (NEGATIVE); Methadone NEGATIVE (NEGATIVE); Opiates NEGATIVE (NEGATIVE); Phencyclidine NEGATIVE (NEGATIVE); THC Cannibis NEGATIVE (NEGATIVE)
[2018-12-10 12:13] LABS: Urine Blood NEGATIVE (NEG); Urine Glucose NEGATIVE (NEG); Urine Protein NEGATIVE (NEG)
--- NOTE | 2018-12-10 13:38 | RAD REPORT ---
EXAM DESCRIPTION: US - Extrem Venous W Compress Claudio - 12/10/2018 1:32 pm CLINICAL HISTORY: Leg pain and swelling COMPARISON: None. TECHNIQUE: Real-time sonographic evaluation of the bilateral lower extremity common femoral, superfi cial femoral, popliteal and posterior tibial veins was performed. FINDINGS: Normal compressibility, flow augmentation, phasic flow and spontaneous flow are identified in the left and right lower extremity common femoral, superficial femoral, popliteal and posterior t ibial veins. No intraluminal filling defects seen. IMPRESSION: No DVT in either lower extremity.
[2018-12-10] MEDS ORDERED: ALBUTEROL 2.5 MG/3 ML NEB SOL NEB PRN (14:44)
[2018-12-10] MEDS ORDERED: ACETAMINOPHEN 500 MG TAB PO PRN (14:44)
[2018-12-10] MEDS ORDERED: IPRATROPIUM BROM 0.5MG/2.5ML NEB PRN (14:44)
[2018-12-10] MEDS: NA CHLORIDE 0.9% 1,000 ML IV SCH ×2 (14:44→21:27)
[2018-12-10] MEDS ORDERED: MECLIZINE HCL 12.5 MG TAB PO PRN (15:39)
[2018-12-10 16:08] VITALS: BMI 16.4
[2018-12-10] MEDS ORDERED: ENOXAPARIN 40 MG/0.4 ML SQ SCH (17:00)
[2018-12-10] MEDS: METHYLPREDNISOLONE 40 MG INJ IV SCH (17:10)
[2018-12-10] MEDS ORDERED: LORAZEPAM 0.5 MG TABLET PO PRN (20:31)
[2018-12-10] MEDS ORDERED: ATORVASTATIN 10 MG TAB PO SCH (21:00)
[2018-12-10] MEDS ORDERED: TRAZODONE 50 MG TABLET PO SCH (21:00)
[2018-12-10] MEDS ORDERED: BUSPIRONE HCL 5 MG TABLET PO SCH (21:00)
[2018-12-10 21:24] VITALS: O2SAT 100
[2018-12-11] MEDS: METHYLPREDNISOLONE 40 MG INJ IV SCH (01:00)
--- NOTE | 2018-12-11 03:16 | HP ---
Date of Admission: 12/10/2018 Chief Complaint: Shortness of breath, panic attack. Code Status: Full. History Of Present Illness: The patient is a 73-year-old female who has had multiple admissions to the hospital for various etiologies including seizure, altered mental status, most recent admission on 12/07/2018 when the patient was admitted for altered mental status. The patient is very noncompliant, rude, aggressive, and hostile towards hospital staff and nursing staff, who was discharged on 12/07/2018 due to altered mental status. The patient does have significant social issues including not getting along with her sister, issues with having meal at home, and complained of shortness of breath, chest pain on the day of admission. The patient's symptoms are constant, moderate, progressively worsening. She came into the ER for further evaluation. Her workup revealed elevated D-dimer at 1934. She refused ABG. The patient was started on supplemental oxygen. Her white count was normal. CT angio chest was negative for PE and venous Doppler was negative for DVT. The patient was then referred for admission. Past Medical History: COPD, hypertension, osteoporosis, depression with anxiety , carotid artery disease, macular degeneration, hyperlipidemia, cataracts. Surgical History: Cataract surgery in the right eye, carotid endarterectomy, cholecystectomy, x3, tonsillectomy. Allergies: ADHESIVE TAPE, CODEINE, DIPHENHYDRAMINE, PENICILLIN, ERYTHROMYCIN. Medications: List reviewed. Social History: The patient is , has 2 children. Lives with her sister. Does not work. Family History: Father had heart disease and lung disease. Mother had stroke, TIA. Habits: The patient denies any tobacco use. The patient was a heavy drinker. States her last drink was 3 months ago. No illicit drug use. Review of Systems: Ten-point system reviewed, negative except as per HPI. Physical Examination: Vital Signs: heart rate 85, blood pressure 181/90, respirations 18, O2 98% on room air. General: Awake, alert, oriented x3 elderly female, frail, cachectic. BMI 16.5 , not in any acute distress. HEENT: Normocephalic, atraumatic. PERRLA, EOMI. Moist mucous membranes. Oropharynx is clear. Poor dentition. Conjunctivae are anicteric. Neck: Supple. No JVD. Trachea midline. CV: S1, S2. Regular rate and rhythm. Peripheral pulses weak bilaterally. No murmurs. Respiratory: Diminished breath sounds. Some wheezing heard. No use of accessory muscles. No stridor. Gastrointestinal: Abdomen is soft, nontender, nondistended. Positive bowel sounds. No guarding or rigidity. Extremities: No clubbing, cyanosis, or edema. No calf tenderness. Neuro: Cranial nerves 2 through 12 intact grossly. No focal neurological deficit. Strength is 5/5 in bilateral upper and lower extremities, major muscle groups. Skin: No rashes. Normal skin turgor. Psych: Mood is dysphoric. Affect is congruent with mood. Insight and judgment are poor. Laboratory Data: WBC 9.5, H and H 11.7 and 33.9, neutrophils 82%. INR 0.99. D-dimer of 1934. ABG was refused. Sodium 133, potassium 4, chloride 98, CO2 27 , BUN 13, creatinine 0.8, glucose 120, calcium 8.4, magnesium 1.6. Troponin less than 0.02. BNP 1516. Lipase 284. UA is negative. Tox screen is negative. Alcohol level less than 3. Doppler sonogram negative for DVT in either lower extremity. CT angio chest shows prominent COPD with no acute finding. No pulmonary emboli identified. Chest x-ray shows prominent COPD similar to comparison. Assessment And Plan: 1. Shortness of breath, likely related to chronic obstructive pulmonary disease versus panic attack. The patient is doing well on room air. 2. Acute chronic obstructive pulmonary disease exacerbation. Continue on breathing treatments and supplemental oxygen as needed. We will start on steroids. 3. Panic attack, improved. The patient has poor coping skills and would benefit from outpatient psychiatry evaluation. We will start on BuSpar. 4. Noncompliance, intentional. The patient has been counseled. 5. Personality disorder, not otherwise specified. 6. Hyponatremia. We will start on IV fluids. 7. Hypocalcemia. 8. Hypomagnesemia. We will replace and monitor. 9. Elevated D-dimer. CT angio is negative for pulmonary embolism. No deep venous thrombosis on ultrasound Doppler. 10. Seizure disorder. 11. Essential hypertension, stable. Resume home medications. 12. Osteoporosis. 13. Failure to thrive, body mass index 16. 14. Depression with anxiety. 15. Carotid artery disease, status post carotid endarterectomy. 16. Macular degeneration. 17. Hyperlipidemia. We will resume statin. Plan: Admit the patient to Med-Surg, place as observation. I did contact [facility] [employer] for direct placement to nursing facility from the ER. However , as the patient is on managed Medicare, she will need to go through authorization from the insurance company. [employer] for [employer] did evaluate the patient. The patient did not seem to be interested, however initially was asking to be placed in a nursing facility. We will have social workers start on discharge planning. ADDENDUM: Patient left AMA the following morning. Also should be noted she declined help from [employer] outside dealer sales representative regarding placement and stated that her sister needs to be kicked out of her house. DARIUSZ Voice ID: [id number] MTDD
[2018-12-11 05:14] VITALS: BP 171/87; TEMP 98.7
[2018-12-11] MEDS ORDERED: levETIRAcetam 500 MG TAB PO SCH (06:00)
[2018-12-11] MEDS ORDERED: CETIRIZINE HCL 5 MG TABLET PO SCH (09:00)
[2018-12-11] MEDS ORDERED: ATENOLOL 50 MG TAB PO SCH (12:00)
--- NOTE | 2018-12-13 11:33 | EKG ---
Test Date: 2018-12-10 Test Time: 10:02:16 Boating Safety Officer: JOSE MEASUREMENT RESULTS: Intervals: Rate: 81 MI: 142 QRSD: 88 QT: 400 QTc: 464 [place]: P: 67 MI: 142 QRS: 74 T: -53 INTERPRETIVE STATEMENTS: Normal sinus rhythm Voltage criteria for left ventricular hypertrophy T wave abnormality, consider inferior ischemia T wave abnormality, consider anterolateral ischemia Abnormal ECG Compared to ECG 12/10/2018 10:01:08 No significant changes Electronically Signed On 12-11-18 10:51:41 CDT by Kee Haile
--- NOTE | 2018-12-13 11:33 | EKG ---
Test Date: 2018-12-10 Test Time: 11:04:47 Solar Sales Representative And Assessor: JOSE MEASUREMENT RESULTS: Intervals: Rate: 75 AR: 144 QRSD: 84 QT: 406 QTc: 453 [place]: P: 60 AR: 144 QRS: 61 T: 53 INTERPRETIVE STATEMENTS: Normal sinus rhythm Voltage criteria for left ventricular hypertrophy T wave abnormality, consider lateral ischemia Abnormal ECG Compared to ECG 12/10/2018 10:02:16 No significant changes Electronically Signed On 12-11-18 10:51:35 CDT by Kee Haile
== END 2018-12-11 06:04 | disposition left against medical advice (07) ==
LOC: ER 09:47 → ERHOLD 12:42 → 4TH 14:27
PROVIDERS: ADMIT Family Medicine; ATTEND Family Medicine
DX: J44.1 Chronic obstructive pulmonary disease with (acute) exacerbation (principal); I25.10 Atherosclerotic heart disease of native coronary artery without angina pectoris; I10 Essential (primary) hypertension; F41.0 Panic disorder [episodic paroxysmal anxiety]; E87.1 Hypo-osmolality and hyponatremia; E83.51 Hypocalcemia; E83.42 Hypomagnesemia; G40.909 Epilepsy, unspecified, not intractable, without status epilepticus; M81.0 Age-related osteoporosis without current pathological fracture; F60.9 Personality disorder, unspecified; R62.7 Adult failure to thrive; F41.8 Other specified anxiety disorders; H35.30 Unspecified macular degeneration; E78.5 Hyperlipidemia, unspecified; Z68.1 Body mass index [BMI] 19.9 or less, adult; Z88.6 Allergy status to analgesic agent; Z91.19 Patient's noncompliance with other medical treatment and regimen; Z88.0 Allergy status to penicillin
CPT/HCPCS: 96365; 96368; 93005 ×2; 85025; 87086; 80048; 36415; 80320; 83735; 85610; 85379; 80076; 80307 ×8; 81003; 84484; 83690; 83880; 71275; 71045; 93970; 94640; 96375; 99285; 96366; Q9967; J3411; J1650; J3475; J7030 ×3; J2920 ×3; G0378 ×2; 87088

== ENCOUNTER 2018-12-14 12:39 | Observation (INO) | payer OTHER ==
[2018-12-14] MEDS ORDERED: NA CHLORIDE 0.9% 500 ML ONE (13:12)
[2018-12-14] MEDS ORDERED: LORazepam 2 MG/ML VIAL ONE ×2 (13:12→20:29)
[2018-12-14 13:33] LABS: Absolute Lymphocytes (CBC) 1.7 K/uL (0.7-4.9); Absolute Monocytes 1.1 K/uL (0.1-1.3); Absolute Neutrophil 10.6 K/uL (1.8-8.0); Basophils % 0.2 % (0-1.3); Hematocrit 39.8 % (36.0-45.0); Lymphocytes % 12.7 % (15.3-44.8); MPV 7.3 fL (7.6-11.3); Monocytes % 8.3 % (3.3-12.3); RBC Red Blood Cell Count 4.22 M/uL (3.86-4.86)
[2018-12-14 13:46] LABS: Protime INR 0.98
--- NOTE | 2018-12-14 13:46 | RAD REPORT ---
EXAM DESCRIPTION: Evin Single View12/14/2018 1:25 pm CLINICAL HISTORY: Chest pain COMPARISON: December 10, 2018 FINDINGS: The lungs are hyperaerated. The lungs appear clear of acute infiltrate. The heart is norm al size. Scoliosis involves the thoracolumbar spine IMPRESSION: No acute abnormalities displayed
[2018-12-14 13:49] LABS: Albumin 4.4 g/dL (3.4-5.0); Bilirubin Direct 0.3 mg/dL (0-0.2); Bilirubin Total 0.9 mg/dL (0.2-1.0); Magnesium 1.8 mg/dL (1.8-2.4); Potassium 3.6 mmol/L (3.5-5.1); Protein, Total 8.3 g/dL (6.4-8.2); Troponin (Emerg Dept Use Only) 0.02 ng/mL (0.0-0.045)
--- NOTE | 2018-12-14 13:52 | RAD REPORT ---
EXAM DESCRIPTION: RAD - Foot Left 3 View - 12/14/2018 1:34 pm CLINICAL HISTORY: Left Foot pain FINDINGS: No fracture or dislocation is seen. The bones are osteoporotic. Soft tissue swelling is seen
--- NOTE | 2018-12-14 17:47 | EKG ---
Test Date: 2018-12-14 Test Time: 13:00:57 Vegetable Grower: RASHAWN MEASUREMENT RESULTS: Intervals: Rate: 127 OR: 124 QRSD: 68 QT: 314 QTc: 456 [place]: P: 60 OR: 124 QRS: 77 T: 109 INTERPRETIVE STATEMENTS: Sinus tachycardia Left ventricular hypertrophy with repolarization abnormality Abnormal ECG Compared to ECG 12/10/2018 11:04:47 Sinus rhythm no longer present Electronically Signed On 12-14-18 17:46:16 CDT by Kee Haile
--- NOTE | 2018-12-14 18:11 | ER ---
Nurse's Notes [facility] Name: Shilpa Richardson Age: 73 yrs Sex: Female : 1945 Arrival Date: 12/14/2018 Time: 12:44 Bed 2 Private MD: Diagnosis: Confusional arousals;Altered mental status, unspecified;Anxiety disorder, unspecified Presentation: 12/14 12:45 Presenting complaint: EMS states: Sister called for altered mental status, pt severely hb agitated, c/o shortness of breath. Transition of care: patient was not received from another setting of care. Onset of symptoms was December 14, 2018. Risk Assessment: Do you want to hurt yourself or someone else? Patient reports no desire to harm self or others. Care prior to arrival: None. 12:45 Method Of Arrival: EMS: [facility] 12:45 Acuity: PATRICIA 2 hb Triage Assessment: 12:54 General: Appears distressed, uncomfortable, Behavior is agitated, anxious. Pain: Unable bp to use pain scale. Does not appear to understand pain scale. EENT: No deficits noted. Neuro: Level of Consciousness is awake, Oriented to person, situation. Cardiovascular: Rhythm is sinus tachycardia. Respiratory: Airway is patent Respiratory effort is labored, Respiratory pattern is hyperventilation. GI: No signs and/or symptoms were reported involving the gastrointestinal system. : No signs and/or symptoms were reported regarding the genitourinary system. Derm: No deficits noted. Musculoskeletal: Circulation, motion, and sensation intact. Range of motion: intact in all extremities. Historical: - Allergies: 12:49 adhesive tape; hb 12:49 Codeine; hb 12:49 Diphenhydramine; hb 12:49 Erythromycin; hb 12:49 PENICILLINS; hb 12:49 Tape; hb - PMHx: 12:56 Alcoholism; Carotid blockage; Anxiety; COPD; Chronic pain; Depression; Hypertension; hb - Immunization history:: Adult Immunizations unknown. - Social history:: Smoking status: unknown. - Ebola Screening: : No symptoms or risks identified at this time. Screenin:22 Abuse screen: Denies threats or abuse. Denies injuries from another. Nutritional bp screening: No deficits noted. Tuberculosis screening: No symptoms or risk factors identified. Fall Risk No fall in past 12 months (0 pts). Secondary diagnosis (15 points) dementia, IV access (20 points). Ambulatory Aid- None/Bed Rest/Nurse Assist (0 pts). Gait- Normal/Bed Rest/Wheelchair (0 pts) Mental Status- Overestimates/Forgets Limitations (15 pts.). Total Solorzano Fall Scale indicates High Risk Score (45 or more points). Fall prevention measures have been instituted. Side Rails Up X 2 Placed Close to Nursing Station Frequent Obs/Assessments Occuring As available patient and family educated on Fall Prevention Program and Strategies. Assessment: 13:22 General: SEE TRIAGE SHEET. bp 14:00 Reassessment: Patient appears in no apparent distress at this time. Patient and/or hb family updated on plan of care and expected duration. Pain level reassessed. 14:22 Reassessment: Pt pulled out PIV, refusing blood culture set #2, Dr. Montelongo aware. hb 15:57 Reassessment: PT D/C OWN PIV, REFUSING TO STAY IN BED OR HAVE FURTHER VS TAKEN. MD AND bp CN AWARE. 16:48 Reassessment: SAS ADMINISTRATOR FROM [facility] AT B/S FOR PT INTERVIEW AND bp EVALUATION. 18:00 Reassessment: NO ROOM AVAILABLE AT [facility], PER REP. DISPO PENDING. PT INTERMITTENTLY bp ORIENTED. 18:30 Reassessment: ADMIT IN PROCESS, PT JUDGED UNSAFE FOR D/C. PT CONTINUES TO REFUSE bp HEALTH CARE ACTIVITIES. 19:15 Reassessment: Patient appears in no apparent distress at this time. Patient and/or aa1 family updated on plan of care and expected duration. Pain level reassessed. Reassessment: Awaiting admission to floor. Neuro: Level of Consciousness is awake, alert, confused, Oriented to person, Moves all extremities. Full function Gait is steady, Speech is normal. Respiratory: Airway is patent Respiratory effort is even, unlabored, Respiratory pattern is regular, symmetrical. GI: No signs and/or symptoms were reported involving the gastrointestinal system. EENT: No signs and/or symptoms were reported regarding the EENT system. Derm: Skin is intact, is healthy with good turgor, Skin is pink, warm \T\ dry. Musculoskeletal: Circulation, motion, and sensation intact. 19:41 Reassessment: Attempted to call report to 4th floor, was placed on hold with no answer. aa1 Will call back. 19:59 Reassessment: Patient appears in no apparent distress at this time. Patient and/or jd3 family updated on plan of care and expected duration. Pain level reassessed. report given to Jacky VALERO. nurse reported will call back when room is prepared for pt admission. 20:15 Reassessment: notified Dr Walter pt refusing IV and lab draws pt agitated refusing care bb new orders received pt medicated see NOV. 21:30 Reassessment: Patient appears in no apparent distress at this time. No changes from aa1 previously documented assessment. Per household appliances salesperson pt is ok to be taken upstairs at this time. Vital Signs: 12:44 BP 171 / 91; Pulse 137; Resp 30; Temp 98.7; Pulse Ox 94% on R/A; Weight 36.29 kg; bp 13:21 BP 174 / 101; Pulse 112; Resp 24; Pulse Ox 100% on Non-rebreather mask; bp 14:00 BP 180 / 88; Pulse 88; Resp 22; Pulse Ox 99% on R/A; hb 15:58 bp 18:00 bp 19:22 BP 182 / 75; Pulse 90; Resp 22; Pulse Ox 94% on R/A; mt 20:33 BP 144 / 98; Pulse 95; Resp 20; Pulse Ox 98% on R/A; mt 15:58 PT REFUSED bp 18:00 PT REFUSED bp NIH Stroke Scale Scores: 12:54 NIHSS Score: 2 bp ED Course: 12:44 Patient arrived in ED. hb 12:46 Triage completed. hb 12:47 Arm band placed on. hb 12:51 Erik Patiño, RN is Primary Nurse. bp 12:51 Shaheen Montelongo MD is Attending Physician. kdr 13:00 Inserted saline lock: 22 gauge in right upper arm, using aseptic technique. Blood bp collected. 13:18 EKG done, by tool and die technician. reviewed by Shaheen Montelongo MD. sm3 13:22 Patient has correct armband on for positive identification. Bed in low position. Call bp light in reach. Side rails up X2. Pulse ox on. NIBP on. 13:25 XRAY Chest (1 view) In Process Unspecified. EDMS 13:33 Foot Left 3 View XRAY In Process Unspecified. EDMS 15:16 PIV D/C BY PT. bp 18:09 Candace Hatch MD is Hospitalizing Provider. kdr 19:13 No provider procedures requiring assistance completed. aa1 20:30 Inserted saline lock: 22 gauge in right forearm, using aseptic technique. Blood rr5 collected. 20:30 by me, sent to lab. rr5 Administered Medications: 13:04 Drug: NS 0.9% 500 ml Route: IV; Rate: bolus; Site: right antecubital; hb 13:05 Drug: Ativan 0.25 mg Route: IVP; Site: right antecubital; hb 13:24 Follow up: Response: Marked relief of symptoms bp 20:32 Drug: Ativan 1 mg Route: IVP; Site: right forearm; bb Outcome: 18:11 Decision to Hospitalize by Provider. kdr 21:30 Admitted to Med/surg accompanied by tech, via stretcher, room 401, with chart, Report aa1 called to Jacky by Josué Gutiérrez RN 21:30 Condition: stable 21:30 Instructed on the need for admit. 21:45 Patient left the ED. aa1 NIH Stroke Scale - NIH Stroke Score Date: 12/14/2018 Time: 12:54 Total Score = 2 1a. Level of Consciousness (LOC) - 0(Alert) 1b. Level of Consciousness (LOC) (Year \T\ Age) - 2(Neither) 1c. LOC Commands (Open \T\ Closes Eyes/Digital Media Representative) - 0(Both) 2. Best Gaze (Lateral Gaze Paresis) - 0(Normal) 3. Visual Field Loss - 0(No visual loss) 4. Facial Palsy - 0(Normal) 5a. Left Arm: Motor (10-second hold) - 0(No drift) 5b. Right Arm: Motor (10-second hold) - 0(No drift) 6a. Left Leg: Motor (5-second hold - always test supine) - 0(No drift) 6b. Right Leg: Motor (5-second hold - always test supine) - 0(No drift) 7. Limb Ataxia (finger/nose \T\ heel/guerra - test with eyes open) - 0(Absent) 8. Sensory Loss (pinprick arms/legs/face) - 0(Normal) 9. Best Language: Aphasia (description/naming/reading) - 0(No aphasia) 10. Dysarthria (speech clarity - read or repeat words) - 0(Normal) 11. Extinction and Inattention (visual/tactile/auditory/spatial/personal) - 0(No abnormality) Initials: bp Signatures: Dispatcher [employer] EDRandee Flores RN RN aa1 Shaheen Montelongo MD MD [facility] Kristen Lobo RN RN bb Nelly Jackson RN RN Maximo [facility] Josué Gutiérrez RN RN jd3 Erik Patiño RN RN Cierra Hong 3 Alfie Castillo RN RN rr5 Corrections: (The following items were deleted from the chart) 12:53 12:44 BP 161 / 116; Pulse 137bpm; Resp 30bpm; Pulse Ox 94% RA; Temp 98.7F; hb hb 13:21 12:44 BP 171 / 91; Pulse 137bpm; Resp 30bpm; Pulse Ox 94% RA; Temp 98.7F; hb bp 21:46 19:59 Reassessment: Patient appears in no apparent distress at this time. tameka Patient and/or family updated on plan of care and expected duration. Pain level reassessed. report Jacky VALERO. nurse reported will call back when room is prepared for pt admission. tameka
--- NOTE | 2018-12-14 18:11 | EDPHYS ---
Physician Documentation [facility] Name: Shilpa Richardson Age: 73 yrs Sex: Female : 1945 Arrival Date: 12/14/2018 Time: 12:44 Bed 2 Private MD: ED Physician Shaheen Montelongo HPI: 12/14 13:01 This 73 yrs old Female presents to ER via EMS with complaints of Altered kdr Mental Status, Shortness Of Breath. 14:42 The patient presents with agitation, confusion, disorientation, to place, to time. kdr 14:45 Onset: The symptoms/episode began/occurred suddenly, just prior to arrival. Possible kdr causes: unknown. Associated signs and symptoms: Pertinent positives: agitation, confusion, lightheadedness, SOB, cyanotic lips and hyperventilation . Current symptoms: In the emergency department the patient's symptoms are unchanged from the initial presentation. Patient's baseline: Neuro: alert and fully oriented, Motor: no deficits, Ambulation: walks with assist only, Speech: normal for age. It is unknown whether or not the patient has had similar symptoms in the past. The patient has not recently seen a physician. Historical: - Allergies: 12:49 adhesive tape; hb 12:49 Codeine; hb 12:49 Diphenhydramine; hb 12:49 Erythromycin; hb 12:49 PENICILLINS; hb 12:49 Tape; hb - PMHx: 12:56 Alcoholism; Carotid blockage; Anxiety; COPD; Chronic pain; Depression; Hypertension; hb - Immunization history:: Adult Immunizations unknown. - Social history:: Smoking status: unknown. - Ebola Screening: : No symptoms or risks identified at this time. ROS: 14:45 Constitutional: Initially, the patient was too aggitated and confused to respond to kdr questions. Later, she became clear and appropriate for age and situation Eyes: Negative for injury, pain, redness, and discharge, Neck: Negative for injury, pain, and swelling, Cardiovascular: Negative for chest pain, palpitations, and edema, Abdomen/GI: Negative for abdominal pain, nausea, vomiting, diarrhea, and constipation, Back: Negative for injury and pain, MS/Extremity: Negative for injury and deformity, Skin: Negative for injury, rash, and discoloration, Neuro: Negative for headache, weakness, numbness, tingling, and seizure activity. Psych: Negative for depression, anxiety, suicide ideation, homicidal ideation, and hallucinations, Allergy/Immunology: Negative for hives, rash, and allergies, Endocrine: Negative for neck swelling, polydipsia, polyuria, polyphagia, and marked weight changes, Hematologic/Lymphatic: Negative for swollen nodes, abnormal bleeding, and unusual bruising. Exam: 14:45 Constitutional: This is a well developed, poorly nourished patient who is awake, kdr alert, and in moderate distress - aggitated and confused Head/Face: Normocephalic, atraumatic. Eyes: Pupils equal round and reactive to light, extra-ocular motions intact. Lids and lashes normal. Conjunctiva and sclera are non-icteric and not injected. Cornea within normal limits. Periorbital areas with no swelling, redness, or edema. Neck: Trachea midline, no thyromegaly or masses palpated, and no cervical lymphadenopathy. Supple, full range of motion without nuchal rigidity, or vertebral point tenderness. No Meningismus. Chest/axilla: Normal chest wall appearance and motion. Nontender with no deformity. No lesions are appreciated. Cardiovascular: Regular rate and rhythm with a normal S1 and S2. No gallops, murmurs, or rubs. Normal PMI, no JVD. No pulse deficits. 14:45 ENT: Mouth: Oral mucosa: dry. Vital Signs: 12:44 BP 171 / 91; Pulse 137; Resp 30; Temp 98.7; Pulse Ox 94% on R/A; Weight 36.29 kg; bp 13:21 BP 174 / 101; Pulse 112; Resp 24; Pulse Ox 100% on Non-rebreather mask; bp 14:00 BP 180 / 88; Pulse 88; Resp 22; Pulse Ox 99% on R/A; hb 15:58 bp 18:00 bp 19:22 BP 182 / 75; Pulse 90; Resp 22; Pulse Ox 94% on R/A; mt 20:33 BP 144 / 98; Pulse 95; Resp 20; Pulse Ox 98% on R/A; mt 15:58 PT REFUSED bp 18:00 PT REFUSED bp NIH Stroke Scale Scores: 12:54 NIHSS Score: 2 bp MDM: 18:11 Patient medically screened. kdr 18:11 Data reviewed: vital signs, nurses notes, lab test result(s), radiologic studies. kdr Counseling: I had a detailed discussion with the patient and/or guardian regarding: the historical points, exam findings, and any diagnostic results supporting the discharge/admit diagnosis, lab results, radiology results, the need for further work-up and treatment in the hospital. 12/14 12:52 Order name: Basic Metabolic Panel; Complete Time: 14:31 kdr 12/14 12:52 Order name: CBC with Diff; Complete Time: 14:31 kdr 12/14 12:52 Order name: LFT's; Complete Time: 14: kdr 12/14 12:52 Order name: Magnesium; Complete Time: 14:31 kdr 12/14 12:52 Order name: NT PRO-BNP; Complete Time: 14:31 kdr 12/14 12:52 Order name: PT-INR; Complete Time: 14: kdr 12/14 12:52 Order name: Troponin (emerg Dept Use Only); Complete Time: 14:31 kdr 12/14 12:58 Order name: Procalcitonin; Complete Time: 14:31 kdr 12/14 12:58 Order name: Lactate; Complete Time: 14:31 kdr 12/14 12:58 Order name: Blood Culture Adult (2) kdr 12/14 20:47 Order name: Lactate bb 12/14 21:01 Order name: Blood Culture* bb 12/14 21:12 Order name: Lactate EDMS 12/14 21:12 Order name: Blood Culture EDMS 12/14 12:52 Order name: XRAY Chest (1 view); Complete Time: 14:31 kdr 12/14 12:52 Order name: EKG; Complete Time: 12:52 kdr 12/14 12:52 Order name: Cardiac monitoring; Complete Time: 13:24 kdr 12/14 12:52 Order name: EKG - Nurse/Tech; Complete Time: 13:24 kdr 12/14 12:52 Order name: IV Saline Lock; Complete Time: 13:24 kdr 12/14 12:52 Order name: Labs collected and sent; Complete Time: 13:24 kdr 12/14 12:52 Order name: O2 Per Protocol; Complete Time: 13:24 kdr 12/14 12:52 Order name: O2 Sat Monitoring; Complete Time: 13:24 kdr 12/14 13:01 Order name: Foot Left 3 View XRAY; Complete Time: 14: kdr 12/14 18:36 Order name: Diet Mech. Soft (chopped); Complete Time: 18:37 dh3 Administered Medications: 13:04 Drug: NS 0.9% 500 ml Route: IV; Rate: bolus; Site: right antecubital; hb 13:05 Drug: Ativan 0.25 mg Route: IVP; Site: right antecubital; hb 13:24 Follow up: Response: Marked relief of symptoms bp 20:32 Drug: Ativan 1 mg Route: IVP; Site: right forearm; bb Disposition: 12/14/18 18:11 Hospitalization ordered by Candace Hatch for Observation. Preliminary diagnosis are Confusional arousals, Altered mental status, unspecified, Anxiety disorder, unspecified. - Bed requested for Telemetry/MedSurg (Inpatient). - Status is Observation. aa1 - Condition is Fair. - Problem is an acute exacerbation. - Symptoms have improved. UTI on Admission? No NIH Stroke Scale - NIH Stroke Score Date: 12/14/2018 Time: 12:54 Total Score = 2 1a. Level of Consciousness (LOC) - 0(Alert) 1b. Level of Consciousness (LOC) (Year \T\ Age) - 2(Neither) 1c. LOC Commands (Open \T\ Closes Eyes/Public Policy Manager) - 0(Both) 2. Best Gaze (Lateral Gaze Paresis) - 0(Normal) 3. Visual Field Loss - 0(No visual loss) 4. Facial Palsy - 0(Normal) 5a. Left Arm: Motor (10-second hold) - 0(No drift) 5b. Right Arm: Motor (10-second hold) - 0(No drift) 6a. Left Leg: Motor (5-second hold - always test supine) - 0(No drift) 6b. Right Leg: Motor (5-second hold - always test supine) - 0(No drift) 7. Limb Ataxia (finger/nose \T\ heel/guerra - test with eyes open) - 0(Absent) 8. Sensory Loss (pinprick arms/legs/face) - 0(Normal) 9. Best Language: Aphasia (description/naming/reading) - 0(No aphasia) 10. Dysarthria (speech clarity - read or repeat words) - 0(Normal) 11. Extinction and Inattention (visual/tactile/auditory/spatial/personal) - 0(No abnormality) Initials: bp Signatures: Dispatcher [employer] EDMS Hollie Kumar bd Amy Herbert RN ANJUM Randee Landon RN RN aa1 Shaheen Montelongo MD MD [facility] Kristen Lobo RN RN bb Baxter, Heather, Erik Gomez RN, RN bp Corrections: (The following items were deleted from the chart) 18:46 18:11 Hospitalization Ordered by Candace Hatch MD for Observation. Preliminary bd diagnosis is Confusional arousals; Altered mental status, unspecified; Anxiety disorder, unspecified. Bed requested for Telemetry/MedSurg (Inpatient). Status is Observation. Condition is Fair. Problem is an acute exacerbation. Symptoms have improved. UTI on Admission? No. kdr 19:00 18:46 12/14/2018 18:11 Hospitalization Ordered by Candace Hatch MD for Observation. Preliminary diagnosis is Confusional arousals; Altered mental status, unspecified; Anxiety disorder, unspecified. Bed requested for Telemetry/MedSurg (Inpatient). Status is Observation. Condition is Fair. Problem is an acute exacerbation. Symptoms have improved. UTI on Admission? No. bd 19:02 19:00 12/14/2018 18:11 Hospitalization Ordered by Candace Hatch MD for Observation. Preliminary diagnosis is Confusional arousals; Altered mental status, unspecified; Anxiety disorder, unspecified. Bed requested for Telemetry/MedSurg (Inpatient). Status is Observation. Condition is Fair. Problem is an acute exacerbation. Symptoms have improved. UTI on Admission? No. mw 21:45 19:02 12/14/2018 18:11 Hospitalization Ordered by Candace Hatch MD for aa1 Observation. Preliminary diagnosis is Confusional arousals; Altered mental status, unspecified; Anxiety disorder, unspecified. Bed requested for Telemetry/MedSurg (Inpatient). Status is Observation. Condition is Fair. Problem is an acute exacerbation. Symptoms have improved. UTI on Admission? No. mw
--- NOTE | 2018-12-14 18:21 | P.HP ---
Certification for Inpatient Patient admitted to: Observation With expected LOS: <2 Midnights Practitioner: I am a practitioner with admitting privileges, knowledge of patient current condition, hospital course, and medical plan of care. Services: Services provided to patient in accordance with Admission requirements found in Title 42 Section 412.3 of the Code of Federal Regulations Patient History Date of Service: 12/14/18 Reason for admission: Altered mental status History of Present Illness: The patient is a 73-year-old female who has had multiple admissions to the hospital and multiple visits to the ER for various etiologies including seizure , altered mental status, most recent admission on 12/10/2018 when the patient was admitted for altered mental status. The patient is very noncompliant, rude , aggressive, and hostile towards hospital staff and nursing staff, who was discharged on 12/11/2018 due to altered mental status. The patient does have significant social issues including not getting along with her sister, issues with having meal at home, and complained of shortness of breath, chest pain on the day of admission. Symptoms are constant, moderate, progressively worsening. She came into the ER for further evaluation. The patient's symptoms had resolved in the emergency room after being given IV Ativan. The rest of the labs were unremarkable and unchanged from prior admissions. In [facility] was called from the emergency room. She was evaluated by incompetence. Per the company, she will need to be admitted for observation while we pending insurance acceptance. Allergies adhesive tape Allergy (Verified 11/28/18 21:48) blisters codeine Allergy (Verified 11/28/18 21:48) Itching diphenhydramine [From Benadryl] Allergy (Verified 11/28/18 21:48) Itching Penicillins Allergy (Verified 11/28/18 21:48) Anaphylaxis Erythromycin Allergy (Severe, Uncoded 11/28/18 21:48) Nausea/Vomiting Home Medications: Atenolol 1 tab PO NOON 12/07/18 Ipratropium/Albuterol Sulfate [Combivent Respimat 20-100 Mcg] 1 puff IH QID PRN 12/08/18 Simvastatin 1 tab PO DAILY 12/08/18 Amlodipine [Norvasc*] 2.5 mg PO DAILY 12/10/18 Baclofen 10 mg PO TIDP PRN 12/10/18 Benzonatate 200 mg PO DAILY 12/10/18 Cetirizine HCl [All Day Allergy] 10 mg PO DAILY 12/10/18 Folic Acid 1 mg PO DAILY 12/10/18 LORazepam [Ativan*] 0.5 mg PO TIDP PRN 12/10/18 Meclizine HCl 12.5 mg pe PO TID PRN 12/10/18 Omeprazole [Prilosec] 40 mg PO DAILY 12/10/18 Tiotropium Br/Olodaterol HCl [Stiolto Respimat Inhal [place]] 1 puff IN DAILY 02/22 Trazodone HCl 50 mg PO BEDTIME 12/10/18 levETIRAcetam [Keppra*] 500 mg PO BID 6AM 6PM 12/10/18 - Past Medical/Surgical History Diabetic: No -: COPD -: HTN -: Osteoporosis -: Depression with anxiety -: Carotid arterial disease -: Macular Degenartion -: Hyperlipidemia -: Cataracts -: Cataract sx Rt eye -: Carotid enterectomy -: Cholecystectomy -: C-sections x3 -: Tonsillectomy Psychosocial/ Personal History: She is , she has 2 children, she lives with a sister. She does not work. - Family History Father -: Heart disease, Lung disease Mother -: Stroke Notes: TIA's - Social History Alcohol use: No CD- Drugs: No Caffeine use: Yes Review of Systems 10-point ROS is otherwise unremarkable Physical Examination - Physical Exam General: Alert, In no apparent distress, Oriented x3 HEENT: Atraumatic, PERRLA, Mucous membr. moist/pink, EOMI, Sclerae nonicteric Neck: Supple, 2+ carotid pulse no bruit, No LAD, Without JVD or thyroid abnormality Respiratory: Clear to auscultation bilaterally, Normal air movement Cardiovascular: Regular rate/rhythm, Normal S1 S2 Gastrointestinal: Normal bowel sounds, No tenderness Musculoskeletal: No tenderness Integumentary: No rashes Neurological: Normal gait, Normal speech, Normal strength at 5/5 x4 extr, Normal tone, Normal affect Lymphatics: No axilla or inguinal lymphadenopathy - Studies Laboratory Data (last 24 hrs) 12/14/18 13:15: PT 11.6, INR 0.98 12/14/18 13:15: WBC 13.5 H D, Hgb 13.2, Hct 39.8 D, Plt Count 861 H D 12/14/18 13:15: Sodium 135 L, Potassium 3.6, BUN 19 H, Creatinine 1.51 H, Glucose 107 H, Magnesium 1.8, Total Bilirubin 0.9, AST 27, ALT 22, Alkaline Phosphatase 172 H Assessment and Plan - Problems (Diagnosis) (1) Acute encephalopathy Current Visit: No Status: Acute (2) Alcohol ingestion Onset Date: 07/08/16 Current Visit: No Status: Acute (3) Seizure Current Visit: No Status: Acute (4) Alcohol abuse Onset Date: 04/05/18 Current Visit: No Status: Chronic (5) Coronary artery disease Onset Date: 06/03/17 Current Visit: No Status: Chronic Qualifiers: (6) Depression with anxiety Onset Date: 06/03/17 Current Visit: No Status: Chronic (7) Hyperlipidemia Onset Date: 06/03/17 Current Visit: No Status: Chronic Qualifiers: - Plan Admit the patient to the floor for observation. We will reach out to [facility] again tomorrow morning. We will restart home medications once reconciled. Monitor via a.m. labs. - Advance Directives Does patient have a Living Will: No Does patient have a Durable POA for Healthcare: Yes
[2018-12-14] MEDS ORDERED: IPRATROPIUM BROM 0.5MG/2.5ML NEB PRN (22:20)
[2018-12-15] MEDS: NA CHLORIDE 0.9% 1,000 ML IV SCH ×3 (00:36→16:04)
[2018-12-15] MEDS ORDERED: MAGNESIUM SULFATE 1 gm IVPB 1 GM/100 ML BAG IV ONE (01:52)
[2018-12-15 06:11] LABS: Absolute Lymphocytes (CBC) 1.9 K/uL (0.7-4.9); Absolute Neutrophil 6.7 K/uL (1.8-8.0); Basophils % 0.4 % (0-1.3); Eosinophils % 2.3 % (0-4.4); Hematocrit 33.7 % (36.0-45.0); Lymphocytes % 19.1 % (15.3-44.8); Monocytes % 10.1 % (3.3-12.3); RBC Red Blood Cell Count 3.57 M/uL (3.86-4.86)
[2018-12-15 06:32] LABS: Albumin 3.5 g/dL (3.4-5.0); Bilirubin Total 0.8 mg/dL (0.2-1.0); Potassium 3.2 mmol/L (3.5-5.1); Protein, Total 6.3 g/dL (6.4-8.2)
[2018-12-15] MEDS: HEPARIN 5000 UNIT/ML 1 ML VIAL SQ SCH ×3 (09:00→20:14)
[2018-12-15] MEDS ORDERED: ENOXAPARIN 40 MG/0.4 ML SQ SCH (09:00)
[2018-12-15] MEDS: ATENOLOL 50 MG TAB PO SCH (10:15)
[2018-12-15] MEDS ORDERED: POTASSIUM 25 MEQ EFFERV TAB PO ONE ×2 (11:04→21:00)
[2018-12-15 15:14] LABS: Urine Appearance CLEAR; Urine Bilirubin NEGATIVE (NEG); Urine Blood NEGATIVE (NEG); Urine Color YELLOW; Urine Glucose NEGATIVE (NEG); Urine Protein NEGATIVE (NEG); Urine Specific Gravity <=1.005 (1.005-1.030)
[2018-12-15 15:28] LABS: Urine Microscopic Reflex NO UMIC
[2018-12-15] MEDS: AMLODIPINE 2.5 MG TAB PO SCH (16:04)
[2018-12-15] MEDS: HYDRALAZINE HCL 20 MG/ML VIAL IV PRN (18:08)
--- NOTE | 2018-12-15 23:01 | P.PN ---
Subjective Date of Service: 12/15/18 Chief Complaint: Altered mental status Subjective: No C/O voiced, Improving Patient seen and examined at bedside. Chart reviewed and case discussed with nursing staff No family at bedside Patient sleeping comfortably in bed No complaints or concerns this am. Review of Systems 10-point ROS is otherwise unremarkable Physical Examination - Vital Signs Temperature: 98.6 F Blood Pressure: 94/54 Pulse: 85 Respirations: 16 Pulse Ox (%): 95 - Physical Exam General: Alert, In no apparent distress, Oriented x3 HEENT: Atraumatic, PERRLA, EOMI Neck: Supple, JVD not distended Respiratory: Clear to auscultation bilaterally, Normal air movement Cardiovascular: Regular rate/rhythm, Normal S1 S2 Gastrointestinal: Normal bowel sounds, No tenderness Musculoskeletal: No tenderness Integumentary: No rashes Neurological: Normal speech, Normal tone, Normal affect Lymphatics: No axilla or inguinal lymphadenopathy Assessment And Plan - Current Problems (Diagnosis) (1) Acute encephalopathy Current Visit: No Status: Acute (2) Alcohol ingestion Onset Date: 07/08/16 Current Visit: No Status: Acute (3) Seizure Current Visit: No Status: Acute (4) Alcohol abuse Onset Date: 04/05/18 Current Visit: No Status: Chronic (5) Coronary artery disease Onset Date: 06/03/17 Current Visit: No Status: Chronic Qualifiers: (6) Depression with anxiety Onset Date: 06/03/17 Current Visit: No Status: Chronic (7) Hyperlipidemia Onset Date: 06/03/17 Current Visit: No Status: Chronic Qualifiers: - Plan Unable to reach [facility]. We will reach out to [facility] again tomorrow morning. We will restart home medications Strict BP control. IV hydralazine prn Monitor via a.m. labs. Medically stable. Patient has social issues and does not have a stable home situation. Social work consulted for discharge planning. She will benefit form physical therapy
[2018-12-15] MEDS: TEMAZEPAM 15 MG CAP PO PRN (23:38)
[2018-12-16 05:50] LABS: Potassium 3.9 mmol/L (3.5-5.1)
[2018-12-16] MEDS ORDERED: POTASSIUM 25 MEQ EFFERV TAB PO ONE (05:52)
[2018-12-16] MEDS: HEPARIN 5000 UNIT/ML 1 ML VIAL SQ SCH ×2 (09:00→20:22)
[2018-12-16] MEDS: AMLODIPINE 2.5 MG TAB PO SCH (09:39)
[2018-12-16] MEDS: ATENOLOL 50 MG TAB PO SCH (11:54)
--- NOTE | 2018-12-16 12:42 | P.PN ---
Subjective Date of Service: 12/16/18 Chief Complaint: Altered mental status Subjective: No C/O voiced Patient seen and examined at bedside. Chart reviewed and case discussed with nursing staff No family at bedside Patient sleeping comfortably in bed No complaints or concerns this am. Review of Systems 10-point ROS is otherwise unremarkable Physical Examination - Vital Signs Temperature: 98.6 F Blood Pressure: 94/54 Pulse: 85 Respirations: 16 Pulse Ox (%): 95 - Physical Exam General: Alert, In no apparent distress, Oriented x3 HEENT: Atraumatic, PERRLA, EOMI Neck: Supple, JVD not distended Respiratory: Clear to auscultation bilaterally, Normal air movement Cardiovascular: Regular rate/rhythm, Normal S1 S2 Gastrointestinal: Normal bowel sounds, No tenderness Musculoskeletal: No tenderness Integumentary: No rashes Neurological: Normal speech, Normal tone, Normal affect Lymphatics: No axilla or inguinal lymphadenopathy Assessment And Plan - Current Problems (Diagnosis) (1) Acute encephalopathy Current Visit: No Status: Acute (2) Alcohol ingestion Onset Date: 07/08/16 Current Visit: No Status: Acute (3) Seizure Current Visit: No Status: Acute (4) Alcohol abuse Onset Date: 04/05/18 Current Visit: No Status: Chronic (5) Coronary artery disease Onset Date: 06/03/17 Current Visit: No Status: Chronic Qualifiers: (6) Depression with anxiety Onset Date: 06/03/17 Current Visit: No Status: Chronic (7) Hyperlipidemia Onset Date: 06/03/17 Current Visit: No Status: Chronic Qualifiers: - Plan Social work consulted. Continue home medications Strict BP control. IV hydralazine prn Monitor via a.m. labs. Medically stable. Patient has social issues and does not have a stable home situation. Social work consulted for discharge planning. She will benefit form physical therapy
[2018-12-16] MEDS: ALBUTEROL 2.5 MG/3 ML NEB SOL NEB PRN (13:00)
[2018-12-16] MEDS: ENSURE ENLIVE 237 ML CAN PO SCH (20:22)
[2018-12-16] MEDS: TEMAZEPAM 15 MG CAP PO PRN (21:38)
[2018-12-17 06:02] LABS: Phosphorus 3.5 mg/dL (2.5-4.9); Potassium 3.8 mmol/L (3.5-5.1)
[2018-12-17] MEDS: AMLODIPINE 2.5 MG TAB PO SCH (08:52)
[2018-12-17] MEDS: HEPARIN 5000 UNIT/ML 1 ML VIAL SQ SCH ×2 (08:54→21:00)
[2018-12-17] MEDS: ENSURE ENLIVE 237 ML CAN PO SCH ×2 (08:54→21:00)
[2018-12-17] MEDS ORDERED: POTASSIUM CL SA 10 MEQ TAB PO ONE (09:00)
[2018-12-17] MEDS ORDERED: POTASSIUM 25 MEQ EFFERV TAB PO ONE (09:00)
[2018-12-17] MEDS: ATENOLOL 50 MG TAB PO SCH (12:14)
[2018-12-17] MEDS: ALBUTEROL 2.5 MG/3 ML NEB SOL NEB PRN (16:15)
--- NOTE | 2018-12-17 22:32 | P.PN ---
Subjective Date of Service: 12/17/18 Chief Complaint: Altered mental status Subjective: No C/O voiced, Tolerating diet Patient seen and examined at bedside. Chart reviewed and case discussed with nursing staff No family at bedside Patient sleeping comfortably in bed No complaints or concerns this am. Review of Systems 10-point ROS is otherwise unremarkable Physical Examination - Vital Signs Temperature: 97.7 F Blood Pressure: 147/79 Pulse: 84 Respirations: 16 Pulse Ox (%): 99 - Physical Exam General: Alert, In no apparent distress HEENT: Atraumatic, PERRLA, EOMI Neck: Supple, JVD not distended Respiratory: Clear to auscultation bilaterally, Normal air movement Cardiovascular: Regular rate/rhythm, Normal S1 S2 Gastrointestinal: Normal bowel sounds, No tenderness Musculoskeletal: No tenderness Integumentary: No rashes Neurological: Normal speech, Normal tone, Normal affect Lymphatics: No axilla or inguinal lymphadenopathy Assessment And Plan - Current Problems (Diagnosis) (1) Acute encephalopathy Current Visit: No Status: Acute (2) Alcohol ingestion Onset Date: 07/08/16 Current Visit: No Status: Acute (3) Seizure Current Visit: No Status: Acute (4) Alcohol abuse Onset Date: 04/05/18 Current Visit: No Status: Chronic (5) Coronary artery disease Onset Date: 06/03/17 Current Visit: No Status: Chronic Qualifiers: (6) Depression with anxiety Onset Date: 06/03/17 Current Visit: No Status: Chronic (7) Hyperlipidemia Onset Date: 06/03/17 Current Visit: No Status: Chronic Qualifiers: - Plan Social work consulted. Continue home medications Strict BP control. IV hydralazine prn Monitor via a.m. labs. Medically stable. Patient has social issues and does not have a stable home situation. Social work consulted for discharge planning. She will benefit form physical therapy
[2018-12-18 06:09] LABS: Potassium 4.2 mmol/L (3.5-5.1)
[2018-12-18] MEDS: ENSURE ENLIVE 237 ML CAN PO SCH ×2 (08:36→20:36)
[2018-12-18] MEDS: AMLODIPINE 2.5 MG TAB PO SCH (08:36)
[2018-12-18] MEDS: HEPARIN 5000 UNIT/ML 1 ML VIAL SQ SCH ×2 (08:37→20:36)
[2018-12-18] MEDS: ATENOLOL 50 MG TAB PO SCH (12:32)
[2018-12-18] MEDS: ALBUTEROL 2.5 MG/3 ML NEB SOL NEB PRN (15:25)
[2018-12-18 18:09] VITALS: BMI 15.6
--- NOTE | 2018-12-18 19:49 | P.PN ---
Subjective Date of Service: 12/18/18 Chief Complaint: Altered mental status Subjective: No C/O voiced Patient seen and examined at bedside. Chart reviewed and case discussed with nursing staff No family at bedside Patient sleeping comfortably in bed No complaints or concerns this am. Review of Systems 10-point ROS is otherwise unremarkable Physical Examination - Vital Signs Temperature: 98.1 F Blood Pressure: 150/90 Pulse: 72 Respirations: 18 Pulse Ox (%): 100 - Physical Exam General: Alert, In no apparent distress, Oriented x3 HEENT: Atraumatic, PERRLA, EOMI Neck: Supple, JVD not distended Respiratory: Clear to auscultation bilaterally, Normal air movement Cardiovascular: Regular rate/rhythm, Normal S1 S2 Gastrointestinal: Normal bowel sounds, No tenderness Musculoskeletal: No tenderness Integumentary: No rashes Neurological: Normal speech, Normal tone, Normal affect Lymphatics: No axilla or inguinal lymphadenopathy Assessment And Plan - Current Problems (Diagnosis) (1) Acute encephalopathy Current Visit: No Status: Acute (2) Alcohol ingestion Onset Date: 07/08/16 Current Visit: No Status: Acute (3) Seizure Current Visit: No Status: Acute (4) Alcohol abuse Onset Date: 04/05/18 Current Visit: No Status: Chronic (5) Coronary artery disease Onset Date: 06/03/17 Current Visit: No Status: Chronic Qualifiers: (6) Depression with anxiety Onset Date: 06/03/17 Current Visit: No Status: Chronic (7) Hyperlipidemia Onset Date: 06/03/17 Current Visit: No Status: Chronic Qualifiers: - Plan Social work consulted. Continue home medications Strict BP control. IV hydralazine prn Monitor via a.m. labs. Medically stable. Patient has social issues and does not have a stable home situation. Social work consulted for discharge planning. She will benefit form physical therapy
[2018-12-18] MEDS: HYDRALAZINE HCL 20 MG/ML VIAL IV PRN (20:35)
[2018-12-18] MEDS ORDERED: LORAZEPAM 1 MG TABLET PO ONE (21:20)
[2018-12-19] MEDS: AMLODIPINE 2.5 MG TAB PO SCH (08:58)
[2018-12-19] MEDS: ENSURE ENLIVE 237 ML CAN PO SCH ×2 (08:58→21:00)
[2018-12-19] MEDS: HEPARIN 5000 UNIT/ML 1 ML VIAL SQ SCH ×2 (08:58→21:00)
[2018-12-19] MEDS: ATENOLOL 50 MG TAB PO SCH (12:00)
--- NOTE | 2018-12-19 18:41 | P.PN ---
Subjective Date of Service: 12/19/18 Chief Complaint: Altered mental status Subjective: No C/O voiced Patient seen and examined at bedside. Chart reviewed and case discussed with nursing staff No family at bedside No medical complaints at this time. States that she is very overwhelmed with all a lot of stuff that she is to do, social issues. Review of Systems 10-point ROS is otherwise unremarkable Physical Examination - Vital Signs Temperature: 97.5 F Blood Pressure: 145/70 Pulse: 84 Respirations: 18 Pulse Ox (%): 97 - Physical Exam General: Alert, In no apparent distress HEENT: Atraumatic, PERRLA, EOMI Neck: Supple, JVD not distended Respiratory: Clear to auscultation bilaterally, Normal air movement Cardiovascular: Regular rate/rhythm, Normal S1 S2 Gastrointestinal: Normal bowel sounds, No tenderness Musculoskeletal: No tenderness Integumentary: No rashes Neurological: Normal speech, Normal tone, Normal affect Lymphatics: No axilla or inguinal lymphadenopathy - Studies Microbiology Data (last 24 hrs): 12/14/18 13:15 Blood - Blood Aerobic Blood Culture - Final No growth in 5 days. 12/14/18 13:15 Blood - Blood Anaerobic Blood Culture - Final No growth in 5 days. Assessment And Plan - Current Problems (Diagnosis) (1) Acute encephalopathy Current Visit: No Status: Acute (2) Alcohol ingestion Onset Date: 07/08/16 Current Visit: No Status: Acute (3) Seizure Current Visit: No Status: Acute (4) Alcohol abuse Onset Date: 04/05/18 Current Visit: No Status: Chronic (5) Coronary artery disease Onset Date: 06/03/17 Current Visit: No Status: Chronic Qualifiers: (6) Depression with anxiety Onset Date: 06/03/17 Current Visit: No Status: Chronic (7) Hyperlipidemia Onset Date: 06/03/17 Current Visit: No Status: Chronic Qualifiers: - Plan Social work consulted. Continue home medications Strict BP control. IV hydralazine prn Monitor via a.m. labs. Medically stable. Patient has social issues and does not have a stable home situation. Social work consulted for discharge planning. Per social work note, they did speak to daughter regarding the possibility of Medicaid pending facility.
[2018-12-19] MEDS ORDERED: LORAZEPAM 1 MG TABLET PO ONE (21:04)
[2018-12-19 22:14] VITALS: O2SAT 98
[2018-12-20] MEDS: AMLODIPINE 2.5 MG TAB PO SCH (08:50)
[2018-12-20] MEDS: HEPARIN 5000 UNIT/ML 1 ML VIAL SQ SCH ×2 (08:51→20:12)
[2018-12-20] MEDS: ENSURE ENLIVE 237 ML CAN PO SCH ×2 (08:51→21:00)
[2018-12-20] MEDS: ATENOLOL 50 MG TAB PO SCH (12:37)
[2018-12-20] MEDS ORDERED: ALBUTEROL 2.5 MG/3 ML NEB SOL NEB PRN (15:00)
--- NOTE | 2018-12-20 16:19 | PN ---
Date of Progress Note: 12/20/2018 Subjective: The patient seen and examined. Chart reviewed and case discussed with RN. The patient is still awaiting placement. No acute events overnight. Medications: List reviewed. Code Status: Full code. Physical Examination: Vital Signs: Temperature 97.4, heart rate 104, blood pressure 140/83, respirations 20, and O2 98% on room air. General: Awake, alert, and oriented x3. Elderly female, frail, ill-appearing. BMI 15.6. CV: S1 and S2. Sinus tachycardia. Peripheral pulses weak. Respiratory: Moving air well bilaterally. No wheezing. Gastrointestinal: Abdomen is soft, nontender, nondistended. Positive bowel sounds. Extremities: No clubbing, cyanosis, or edema. Neurologic: Nonfocal. Laboratory Data: Pending. Blood cultures negative to date. Assessment And Plan: A 73-year-old female with: 1.Acute metabolic encephalopathy, resolved. The patient now back to baseline. 2.Alcohol ingestion and dependence. Watch for signs of withdrawal. 3.Seizure disorder. We will continue seizure precautions and continue home medications. 4.Coronary artery disease, [place] artery and [place] heart without angina, stable. 5.Depression with anxiety. 6.Mixed hyperlipidemia. 7.Deep vein thrombosis prophylaxis. 8.Failure to thrive. BMI 15.6. 9.Early dementia. CT scan of the head does show mild atrophy. No behavioral disturbance. Plan: Discharged to Medicare facility, once accepted. The patient has a poor social situation at [facility]. APS has been contacted by social service coordinator. DARIUSZ Voice ID: [id number] Report ID: [id number]
[2018-12-20] MEDS: levETIRAcetam 500 MG TAB PO SCH (17:18)
[2018-12-20] MEDS: HYDRALAZINE HCL 20 MG/ML VIAL IV PRN (17:59)
[2018-12-20] MEDS ORDERED: LORAZEPAM 1 MG TABLET PO ONE (20:23)
[2018-12-21] MEDS: levETIRAcetam 500 MG TAB PO SCH (06:50)
[2018-12-21] MEDS: AMLODIPINE 2.5 MG TAB PO SCH (09:00)
[2018-12-21] MEDS: HEPARIN 5000 UNIT/ML 1 ML VIAL SQ SCH (09:00)
[2018-12-21] MEDS: ENSURE ENLIVE 237 ML CAN PO SCH (09:02)
[2018-12-21] MEDS: ATENOLOL 50 MG TAB PO SCH (12:14)
[2018-12-21 12:16] VITALS: BP 138/79
[2018-12-21 12:52] VITALS: TEMP 98.4
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
== END 2018-12-21 16:02 | disposition home or self-care (01) ==
LOC: ER 12:39 → ERHOLD 18:16 → 4TH 21:25
PROVIDERS: ADMIT Family Medicine; ATTEND Family Medicine
DX: G93.40 Encephalopathy, unspecified (principal); Z72.89 Other problems related to lifestyle; I77.89 Other specified disorders of arteries and arterioles; G40.909 Epilepsy, unspecified, not intractable, without status epilepticus; J44.9 Chronic obstructive pulmonary disease, unspecified; G89.29 Other chronic pain; I25.10 Atherosclerotic heart disease of native coronary artery without angina pectoris; F41.8 Other specified anxiety disorders; E78.5 Hyperlipidemia, unspecified; I10 Essential (primary) hypertension; F60.9 Personality disorder, unspecified; Z91.19 Patient's noncompliance with other medical treatment and regimen; R62.7 Adult failure to thrive; Z68.1 Body mass index [BMI] 19.9 or less, adult; F03.90 Unspecified dementia, unspecified severity, without behavioral disturbance, psychotic disturbance, mood disturbance, and anxiety
CPT/HCPCS: 93005; 87040 ×2; 85025 ×2; 80048 ×4; 36415 ×4; 83735 ×3; 84100; 84132; 85610; 80076; 83605 ×2; 81003; 84484; 80053; 84145; 83880; 71045; 73630; 97116 ×4; 97163; 97530 ×2; 94640; 94760 ×13; 99285; J0360 ×3; J1644; J3475; J7030 ×2; G0378 ×2

== ENCOUNTER 2019-02-06 20:13 | Emergency (ER) | payer OTHER ==
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
[2019-02-06 23:47] VITALS: TEMP 98.1; O2SAT 95
[2019-02-06 23:48] VITALS: BP 155/85
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
== END 2019-02-06 23:35 | disposition home or self-care (01) ==
LOC: ER 20:13
DX: S00.83XA Contusion of other part of head, initial encounter (principal); Y04.2XXA Assault by strike against or bumped into by another person, initial encounter; Y93.9 Activity, unspecified; Y92.129 Unspecified place in nursing home as the place of occurrence of the external cause; Z88.0 Allergy status to penicillin; Z88.3 Allergy status to other anti-infective agents; Z88.5 Allergy status to narcotic agent; Z91.048 Other nonmedicinal substance allergy status; I10 Essential (primary) hypertension; F41.9 Anxiety disorder, unspecified
CPT/HCPCS: 70450; 70486; 76377; 99284

== ENCOUNTER 2019-07-21 15:41 | Inpatient (IN) | payer OTHER ==
[2019-07-21 17:33] LABS: Absolute Lymphocytes (CBC) 1.4 K/uL (0.7-4.9); Basophils % 0.7 % (0-1.3); Hematocrit 32.3 % (36.0-45.0); Lymphocytes % 12.9 % (15.3-44.8); MPV 6.5 fL (7.6-11.3); RBC Red Blood Cell Count 3.62 M/uL (3.86-4.86)
[2019-07-21 17:52] LABS: Albumin 4.2 g/dL (3.4-5.0); Bilirubin Total 0.5 mg/dL (0.2-1.0); Potassium 4.6 mmol/L (3.5-5.1); Protein, Total 7.1 g/dL (6.4-8.2)
[2019-07-21] MEDS ORDERED: NA CHLORIDE 0.9% 500 ML ONE (18:38)
--- NOTE | 2019-07-21 20:00 | RAD REPORT ---
EXAM DESCRIPTION: Evin Single View07/21/2019 7:43 pm CLINICAL HISTORY: Hypertension COMPARISON: December 2018 FINDINGS: Lungs are hyperaerated The lungs appear clear of acute infiltrate. The heart is normal size IMPRESSION: No acute abnormalities displayed
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
--- NOTE | 2019-07-21 21:12 | EDPHYS ---
Physician Documentation [facility] Name: Shilpa Richardson Age: 73 yrs Sex: Female : 1945 Arrival Date: 07/21/2019 Time: 15:44 Bed 7 Private MD: ED Physician Shaheen Montelongo HPI: 07/21 16:29 This 73 yrs old Female presents to ER via EMS with complaints of High Blood jmm Pressure. 16:29 The patient presents with confusion. Onset: The symptoms/episode began/occurred jmm gradually, 2 day(s) ago. Possible causes: alcohol, unknown. Associated signs and symptoms: Pertinent positives: agitation, combativeness, Pertinent negatives: blurred vision, chest pain, headache, palpitations, seizure. The patient has experienced similar episodes in the past. Historical: - Allergies: 15:46 adhesive tape; ss 15:46 Codeine; ss 15:46 Diphenhydramine; ss 15:46 Erythromycin; ss 15:46 PENICILLINS; ss 15:46 Tape; ss - Home Meds: 19:15 alprazolam 1 mg Oral tab BID [Active]; amlodipine 2.5 mg tab 1 tab once daily [Active]; cc3 atenolol 25 mg Oral tab once daily [Active]; baclofen 10 mg Oral tab BID [Active]; clonidine HCl 0.1 mg Oral tab [Active]; Combivent Inhl [Active]; hydrocodone-acetaminophen 7.5-325 mg/15 mL Oral soln take one tablespoon TID [Active]; Lyrica 100mg Oral 2 times per day [Active]; meloxicam 15 mg Oral tab 1 tab once daily [Active]; Restasis ophthalmic 1 drop 2 times per day [Active]; Silenor 6 mg Oral tab 1 tab once daily [Active]; simvastatin 20 mg Oral tab once daily [Active]; Stiolto Respimat 2.5-2.5 mcg/actuation inhalation mist 2 puffs once daily [Active]; - PMHx: 15:46 Alcoholism; Anxiety; Carotid blockage; Chronic pain; COPD; Depression; Hypertension; ss - Immunization history:: Adult Immunizations up to date. - Social history:: Smoking status: Patient/guardian denies using tobacco. - Ebola Screening: : Patient denies exposure to infectious person Patient denies travel to an Ebola-affected area in the 21 days before illness onset. ROS: 16:29 Constitutional: Negative for fever, chills, and weight loss, Cardiovascular: Negative jmm for chest pain, palpitations, and edema, Respiratory: Negative for shortness of breath, cough, wheezing, and pleuritic chest pain, Abdomen/GI: Negative for abdominal pain, nausea, vomiting, diarrhea, and constipation. 16:29 Neuro: Positive for confusion. 16:29 All other systems are negative. Exam: 16:29 Constitutional: This is a well developed, well nourished patient who is awake, alert, jmm and in no acute distress. Head/Face: atraumatic. Eyes: EOMI, no conjunctival erythema appreciated ENT: Moist Mucus Membranes Neck: Trachea midline, Supple Chest/axilla: Normal chest wall appearance and motion. Cardiovascular: Regular rate and rhythm. No edema appreciated Respiratory: Normal respirations, no respiratory distress appreciated Abdomen/GI: Non distended, soft Back: Normal ROM Skin: General appearance color normal MS/ Extremity: Moves all extremities, no obvious deformities appreciated, no edema noted to the lower extremities Neuro: Awake and alert, normal gait Psych: Behavior is normal, Mood is normal, Patient is cooperative and pleasant Vital Signs: 15:46 BP 164 / 80; Pulse 77; Resp 16; Temp 98.0(TE); Pulse Ox 100% on R/A; Weight 39.92 kg; ss Height 4 ft. 11 in. (149.86 cm); Pain 0/10; 19:15 BP 180 / 94; Pulse 96; Resp 20 S; Temp 97.9(O); Pulse Ox 98% on R/A; Pain 0/10; cc3 20:02 BP 138 / 92; Pulse 89; Resp 18 S; Pulse Ox 95% on R/A; cc3 20:15 BP 126 / 97; Pulse 95; Resp 19 S; Pulse Ox 95% on R/A; cc3 20:45 BP 166 / 87; Pulse 91; Resp 18 S; Pulse Ox 95% on R/A; cc3 21:15 BP 103 / 87; Pulse 103; Resp 20 S; Pulse Ox 96% on R/A; cc3 22:20 BP 145 / 83; Pulse 85; Resp 20 S; Pulse Ox 96% on R/A; cc3 22:45 BP 153 / 81; Pulse 83; Resp 18 S; Pulse Ox 95% on R/A; cc3 15:46 Body Mass Index 17.78 (39.92 kg, 149.86 cm) ss MDM: 16:29 Patient medically screened. [facility] 21:09 Data reviewed: vital signs, nurses notes. Counseling: I had a detailed discussion with apple the patient and/or guardian regarding: the historical points, exam findings, and any diagnostic results supporting the discharge/admit diagnosis, lab results, the need for further work-up and treatment in the hospital. ED course: i discussed the patient with Dr. Dumas whom accepted admission. . 07/21 16:49 Order name: CBC with Diff; Complete Time: 18:00 [facility] 07/21 16:49 Order name: CMP [facility] 07/21 19:32 Order name: Troponin (emerg Dept Use Only); Complete Time: 20:16 [facility] 07/21 19:45 Order name: Osmolality, Serum; Complete Time: 20:57 [facility] 07/21 19:46 Order name: Urine Osmolality [facility] 07/21 19:46 Order name: Osmolality, Urine [facility] 07/21 17:57 Order name: EKG Electrocardiogram; Complete Time: 18:00 [facility] 07/21 19:26 Order name: CT Head Brain wo Cont; Complete Time: 20:06 [facility] 07/21 19:26 Order name: Chest Single View XRAY; Complete Time: 20:06 [facility] 07/21 20:32 Order name: ETOH Level; Complete Time: 21:31 [facility] 07/21 22:42 Order name: Urine Microscopic Only [facility] 07/21 22:44 Order name: Urine Dipstick--Ancillary (enter results) [facility] 07/21 22:59 Order name: Urine Dipstick-Ancillary; Complete Time: 23:01 [facility] 07/21 16:49 Order name: EKG - Nurse/Tech; Complete Time: 17:07 [facility] 07/21 16:49 Order name: Urine Dipstick-Ancillary (obtain specimen); Complete Time: 22:44 [facility] 07/21 22:30 Order name: Jacinto; Complete Time: 22:30 cc3 Administered Medications: 18:45 Drug: NS 0.9% 500 ml Route: IV; Rate: bolus; Site: left wrist; sg 20:30 Follow up: Response: No adverse reaction; IV Status: Completed infusion; IV Intake: cc3 500ml Disposition: 07/21/19 21:11 Hospitalization ordered by Richard Dumas for Inpatient Admission. Preliminary diagnosis are Hypo-osmolality and hyponatremia, Altered mental status, unspecified. - Bed requested for Telemetry/MedSurg (Inpatient). - Status is Inpatient Admission. cc3 - Condition is Stable. - Problem is new. - Symptoms are unchanged. UTI on Admission? Yes Addendum: 07/25/2019 06:31 Co-signature as Attending Physician, Shaheen Montelongo MD I agree with the assessment and k dr plan of care. Signatures: Dispatcher [employer] EDMS Saul Castañeda RN RN Shaheen Montelongo MD MD [facility] Yanick Spencer PA PA jm Tati Jaramillo RN RN ss Aurora Herrera RN RN Herlinda Herring cc3 Corrections: (The following items were deleted from the chart) 07/21 22:26 21:11 Hospitalization Ordered by Richard Dumas for Inpatient Admission. Preliminary cg diagnosis is Hypo-osmolality and hyponatremia; Altered mental status, unspecified. Bed requested for Telemetry/MedSurg (Inpatient). Status is Inpatient Admission. Condition is Stable. Problem is new. Symptoms are unchanged. UTI on Admission? No. [facility] 22:30 20:58 Jacinto ordered. cc3 cc3 23:01 22:26 07/21/2019 21:11 Hospitalization Ordered by Richard Dumas for Inpatient [facility] Admission. Preliminary diagnosis is Hypo-osmolality and hyponatremia; Altered mental status, unspecified. Bed requested for Telemetry/MedSurg (Inpatient). Status is Inpatient Admission. Condition is Stable. Problem is new. Symptoms are unchanged. UTI on Admission? No. cg 23:05 23:01 07/21/2019 21:11 Hospitalization Ordered by Richard Dumas for Inpatient cc3 Admission. Preliminary diagnosis is Hypo-osmolality and hyponatremia; Altered mental status, unspecified. Bed requested for Telemetry/MedSurg (Inpatient). Status is Inpatient Admission. Condition is Stable. Problem is new. Symptoms are unchanged. UTI on Admission? Yes. [facility]
--- NOTE | 2019-07-21 21:12 | ER ---
Nurse's Notes [facility] Name: Shilpa Richardson Age: 73 yrs Sex: Female : 1945 Arrival Date: 07/21/2019 Time: 15:44 Bed 7 Private MD: Diagnosis: Hypo-osmolality and hyponatremia;Altered mental status, unspecified Presentation: 07/21 15:44 Presenting complaint: EMS states: high blood pressure and confusion that began today. EMS reports that they responded to a call to patient's home for same complaints this morning, but she refused transportation. Transition of care: patient was not received from another setting of care. Onset of symptoms was July 21, 2019. Risk Assessment: Do you want to hurt yourself or someone else? Patient reports no desire to harm self or others. Initial Sepsis Screen: Does the patient meet any 2 criteria? No. Patient's initial sepsis screen is negative. Does the patient have a suspected source of infection? No. Patient's initial sepsis screen is negative. Care prior to arrival: Glucose check: 112. 15:44 Acuity: PATRICIA 3 ss 15:44 Method Of Arrival: EMS: [facility] Historical: - Allergies: 15:46 adhesive tape; ss 15:46 Codeine; ss 15:46 Diphenhydramine; ss 15:46 Erythromycin; ss 15:46 PENICILLINS; ss 15:46 Tape; - Home Meds: 19:15 alprazolam 1 mg Oral tab BID [Active]; amlodipine 2.5 mg tab 1 tab once daily [Active]; cc3 atenolol 25 mg Oral tab once daily [Active]; baclofen 10 mg Oral tab BID [Active]; clonidine HCl 0.1 mg Oral tab [Active]; Combivent Inhl [Active]; hydrocodone-acetaminophen 7.5-325 mg/15 mL Oral soln take one tablespoon TID [Active]; Lyrica 100mg Oral 2 times per day [Active]; meloxicam 15 mg Oral tab 1 tab once daily [Active]; Restasis ophthalmic 1 drop 2 times per day [Active]; Silenor 6 mg Oral tab 1 tab once daily [Active]; simvastatin 20 mg Oral tab once daily [Active]; Stiolto Respimat 2.5-2.5 mcg/actuation inhalation mist 2 puffs once daily [Active]; - PMHx: 15:46 Alcoholism; Anxiety; Carotid blockage; Chronic pain; COPD; Depression; Hypertension; ss - Immunization history:: Adult Immunizations up to date. - Social history:: Smoking status: Patient/guardian denies using tobacco. - Ebola Screening: : Patient denies exposure to infectious person Patient denies travel to an Ebola-affected area in the 21 days before illness onset. Screenin:15 Abuse screen: Denies threats or abuse. Denies injuries from another. Nutritional cc3 screening: No deficits noted. Tuberculosis screening: No symptoms or risk factors identified. Fall Risk Ambulatory Aid- None/Bed Rest/Nurse Assist (0 pts). Gait- Weak (10 pts.). Mental Status- Overestimates/Forgets Limitations (15 pts.). Assessment: 16:32 Reassessment: spoke with sister who reports that she is unable to come get patient from ED and bring her home because she does not have a car. Instructs to call a cab for her on discharge. Patient voiced concern about getting her medication regularly at home. Sister reports that they have a home health aide that helps with things of that nature at home 5 days out of the week. 19:15 General: Appears in no apparent distress. comfortable, Behavior is cooperative, cc3 confused. Pain: Denies pain. Neuro: Level of Consciousness is awake, alert, obeys commands, confused, Oriented to person. Cardiovascular: Denies chest pain, Heart tones S1 S2 present Capillary refill < 3 seconds in bilateral fingers Patient's skin is warm and dry. Respiratory: Airway is patent Respiratory effort is even, unlabored, Respiratory pattern is regular, symmetrical, Breath sounds are clear bilaterally. GI: Abdomen is flat, Bowel sounds present X 4 quads. Abd is soft and non tender X 4 quads. : No signs and/or symptoms were reported regarding the genitourinary system. EENT: No signs and/or symptoms were reported regarding the EENT system. Derm: Skin is intact, is healthy with good turgor, Skin is pink, warm \T\ dry. normal. Musculoskeletal: Circulation, motion, and sensation intact. Range of motion: intact in all extremities. 20:30 Reassessment: Patient appears in no apparent distress at this time. No changes from cc3 previously documented assessment. Tried to put straight cath on the patient 3x with the help of ANJUM Huerta and medical imaging technologist José Miguel but there's no urine output, CARA lua, bladder scan 294 mL. 20:37 Reassessment: Hospitalist Dr. Dumas at bedside assessing the patient. cc3 21:18 Reassessment: Patient appears in no apparent distress at this time. No changes from cc3 previously documented assessment. Patient and/or family updated on plan of care and expected duration. Pain level reassessed. 22:47 Reassessment: Patient appears in no apparent distress at this time. No changes from cc3 previously documented assessment. Room available in 224, report called and handed over to ANJUM Salgado for continuity of care and management. 23:00 Reassessment: Patient appears in no apparent distress at this time. No changes from cc3 previously documented assessment. Patient and/or family updated on plan of care and expected duration. Pain level reassessed. Patient left ER for admission vitally stable by stretcher escorted by medical imaging technologist José Miguel. No valuables left in the patient's room. Patient denies pain at this time. Vital Signs: 15:46 BP 164 / 80; Pulse 77; Resp 16; Temp 98.0(TE); Pulse Ox 100% on R/A; Weight 39.92 kg; ss Height 4 ft. 11 in. (149.86 cm); Pain 0/10; 19:15 BP 180 / 94; Pulse 96; Resp 20 S; Temp 97.9(O); Pulse Ox 98% on R/A; Pain 0/10; cc3 20:02 BP 138 / 92; Pulse 89; Resp 18 S; Pulse Ox 95% on R/A; cc3 20:15 BP 126 / 97; Pulse 95; Resp 19 S; Pulse Ox 95% on R/A; cc3 20:45 BP 166 / 87; Pulse 91; Resp 18 S; Pulse Ox 95% on R/A; cc3 21:15 BP 103 / 87; Pulse 103; Resp 20 S; Pulse Ox 96% on R/A; cc3 22:20 BP 145 / 83; Pulse 85; Resp 20 S; Pulse Ox 96% on R/A; cc3 22:45 BP 153 / 81; Pulse 83; Resp 18 S; Pulse Ox 95% on R/A; cc3 15:46 Body Mass Index 17.78 (39.92 kg, 149.86 cm) ED Course: 15:44 Patient arrived in ED. ss 15:46 Triage completed. ss 15:46 Arm band placed on right wrist. 15:51 EKG done, by surgical scrub technician. reviewed by Shaheen Montelongo MD. 3 16:18 Yanick Spencer PA is PHCP. [facility] 16:18 Shaheen Montelongo MD is Attending Physician. m 17:15 Initial lab(s) drawn, by me, sent to lab. Inserted saline lock: 22 gauge in left dh3 forearm, using aseptic technique. Blood collected. 19:03 Wade Hernandez, ANJUM is Primary Nurse. jl7 19:15 Patient has correct armband on for positive identification. Placed in gown. Bed in low cc3 position. Call light in reach. Side rails up X2. gunstock repairer on. Pulse ox on. NIBP on. 19:40 IV discontinued, intact, bleeding controlled, No redness/swelling at site. Pressure cc3 dressing applied, patient confused and removed the IV cannula. 19:43 Chest Single View XRAY In Process Unspecified. EDMS 19:52 CT Head Brain wo Cont In Process Unspecified. EDMS 20:39 Inserted saline lock: 20 gauge in right antecubital area, using aseptic technique. cc3 Blood collected. 21:11 Richard Dumas is Hospitalizing Provider. [facility] 22:00 Jacinto cath inserted, using sterile technique, 16 Fr., by tn, balloon inflated, urine cc3 specimen collected. returned cassie urine. Patient tolerated well. 22:24 No provider procedures requiring assistance completed. cc3 22:44 Urine Microscopic Only Sent. ds4 22:44 Osmolality, Urine Sent. ds4 Administered Medications: 18:45 Drug: NS 0.9% 500 ml Route: IV; Rate: bolus; Site: left wrist; sg 20:30 Follow up: Response: No adverse reaction; IV Status: Completed infusion; IV Intake: cc3 500ml Intake: 20:30 IV: 500ml; Total: 500ml. cc3 Outcome: 21:11 Decision to Hospitalize by Provider. m 22:24 Admitted to Med/surg accompanied by tech, via stretcher, room 224, with chart, Report cc3 called to ANJUM Salgado 22:24 Condition: stable 22:24 Instructed on the need for admit, Demonstrated understanding of instructions. 23:05 Patient left the ED. cc3 Signatures: Dispatcher [employer] EDMS Saul Castañeda RN RN Yanick Kumari, Tati Garcia RN RN ss José Miguel Rodriguez ds4 Wade Hernandez RN RN jl7 Brittny Schwartz 3 Cierra Hong 3 Herlinda Herring cc3 Corrections: (The following items were deleted from the chart) 17:28 15:46 BP 164 / 80; Pulse 77bpm; Resp 16bpm; Pulse Ox 100% RA; 39.92 kg; Height 4 ft. 11 ss in.; BMI: 17.7; Pain 0/10; ss 20:42 20:00 Reassessment: Patient appears in no apparent distress at this time. No changes cc3 from previously documented assessment. Tried to put straight cath on the patient 3x with the help of ANJUM Huerta and medical imaging technologist José Miguel but there's no urine output, CARA Herndon informed. cc3
--- NOTE | 2019-07-21 21:59 | P.HP ---
Certification for Inpatient Patient admitted to: Observation With expected LOS: <2 Midnights Practitioner: I am a practitioner with admitting privileges, knowledge of patient current condition, hospital course, and medical plan of care. Services: Services provided to patient in accordance with Admission requirements found in Title 42 Section 412.3 of the Code of Federal Regulations Patient History Date of Service: 07/22/19 Reason for admission: Altered Mental status. History of Present Illness: 73-year-old woman with a history of hypertension, COPD, chronic alcohol drinker was transferred from her home to the emergency department to be evaluated for confusion and high blood pressure. Patient reports feeling thirsty most of the time, she stated she drinks beer to quench her thirst. Her sodium level in the ED was as low as 126. Her systolic blood pressure during my examination was 210. Patient looked dry. Serum creatinine is normal. Serum osmolality is low. UA is pending. Patient is placed under observation for further evaluation of altered mental status. Allergies adhesive tape Allergy (Verified 11/28/18 21:48) blisters codeine Allergy (Verified 11/28/18 21:48) Itching diphenhydramine [From Benadryl] Allergy (Verified 11/28/18 21:48) Itching Penicillins Allergy (Verified 11/28/18 21:48) Anaphylaxis Erythromycin Allergy (Severe, Uncoded 11/28/18 21:48) Nausea/Vomiting Home Medications: Atenolol 1 tab PO NOON 12/07/18 Ipratropium/Albuterol Sulfate [Combivent Respimat 20-100 Mcg] 1 puff IH QID PRN 12/08/18 Simvastatin 1 tab PO DAILY 12/08/18 Amlodipine [Norvasc*] 2.5 mg PO DAILY 12/10/18 Baclofen 10 mg PO TIDP PRN 12/10/18 Benzonatate 200 mg PO DAILY 12/10/18 Cetirizine HCl [All Day Allergy] 10 mg PO DAILY 12/10/18 Folic Acid 1 mg PO DAILY 12/10/18 LORazepam [Ativan*] 0.5 mg PO TIDP PRN 12/10/18 Meclizine HCl 12.5 mg pe PO TID PRN 12/10/18 Omeprazole [Prilosec] 40 mg PO DAILY 12/10/18 Tiotropium Br/Olodaterol HCl [Stiolto Respimat Inhal [place]] 1 puff IN DAILY 02/22 Trazodone HCl 50 mg PO BEDTIME 12/10/18 levETIRAcetam [Keppra*] 500 mg PO BID 6AM 6PM 12/10/18 - Past Medical/Surgical History Diabetic: No -: COPD -: HTN -: Osteoporosis -: Depression with anxiety -: Carotid arterial disease -: Macular Degenartion -: Hyperlipidemia -: Cataracts -: Cataract sx Rt eye -: Carotid enterectomy -: Cholecystectomy -: C-sections x3 -: Tonsillectomy Psychosocial/ Personal History: She is , she has 2 children, she lives with a sister. She does not work. - Family History Father -: Heart disease, Lung disease Mother -: Stroke Notes: TIA's - Social History Alcohol use: No CD- Drugs: No Caffeine use: Yes Review of Systems Other: General: No fever, no malaise. Respiratory: No cough, no shortness of breath. CVS: No chest pain, no palpitation, no lightheadedness. GI: No abdominal pain, no nausea no vomit, no constipation, no diarrhea. Genitourinary: No dysuria, no urinary frequency. She has urinary incontinence. Musculoskeletal: No joint pains, or joint swelling. Neurology: No headache, no asymmetric weakness, no problem with swallowing. Except as documented, all other systems reviewed and negative. Physical Examination - Physical Exam General: In no apparent distress, Oriented x3, Cachectic HEENT: Atraumatic, Normocephalic, PERRLA, Other (Dry oral mucosa.) Neck: Supple, JVD not distended Respiratory: Clear to auscultation bilaterally, Normal air movement Cardiovascular: No edema, Regular rate/rhythm, Normal S1 S2, No murmurs Capillary refill: <2 Seconds Gastrointestinal: Normal bowel sounds, Soft and benign, Non-distended, No tenderness Musculoskeletal: No swelling, No erythema Integumentary: No rashes Neurological: Normal speech, Normal strength at 5/5 x4 extr, Cranial nerves 3- 12 intact - Studies Laboratory Data (last 24 hrs) 07/21/19 17:15: Sodium 126 L, Potassium 4.6, BUN 17, Creatinine 0.88, Glucose 78 , Total Bilirubin 0.5, AST 27, ALT 22, Alkaline Phosphatase 153 H 07/21/19 17:15: WBC 11.0 H, Hgb 11.3 L, Hct 32.3 L, Plt Count 577 H Assessment and Plan - Problems (Diagnosis) (1) Metabolic encephalopathy Current Visit: Yes Status: Acute (2) Hyponatremia Onset Date: 07/08/16 Current Visit: No Status: Acute (3) Accelerated hypertension Current Visit: Yes Status: Acute (4) Alcohol abuse Onset Date: 04/05/18 Current Visit: No Status: Chronic (5) Seizure disorder Current Visit: Yes Status: Acute - Plan Place under observation awake overnight monitor IV normal saline Follow urine osmolality and UA Monitor serum sodium q6 hrs. Avoid greater than 10-12 meq correction per day. Continue home antihypertensives Hydralazine IV p.r.n. for BP spikes Neuro check Monitor for alcohol withdrawal and institute CIWA as needed. Continue Keppra for seizure disorder. - Advance Directives Does patient have a Living Will: No Does patient have a Durable POA for Healthcare: No
[2019-07-21 22:59] LABS: Urine Blood TRACE (NEG); Urine Glucose NEGATIVE (NEG); Urine Protein NEGATIVE (NEG); Urine Specific Gravity 1.015 (1.005-1.030); Urine pH 7.5 (5.0-7.0)
[2019-07-21] MEDS ORDERED: HYDRALAZINE HCL 20 MG/ML VIAL IV PRN (23:11)
[2019-07-21] MEDS ORDERED: ACETAMINOPHEN 500 MG TAB PO PRN (23:11)
[2019-07-21] MEDS ORDERED: ONDANSETRON 4 MG/2 ML VIAL IV PRN (23:11)
[2019-07-21] MEDS ORDERED: ALBUTEROL 2.5 MG/3 ML NEB SOL NEB PRN (23:11)
[2019-07-21 23:26] VITALS: BMI 15.0
[2019-07-21 23:38] LABS: Urine Bacteria <20 /HPF (<20); Urine Culture Reflex Order NOT NEEDED; Urine RBC NONE SEEN /HPF (NONE SEEN)
[2019-07-21 23:52] LABS: Thyroid Stimulating Hormone 10.9 uIU/mL (0.360-3.740)
[2019-07-22] MEDS: IPRATROPIUM BROM 0.5MG/2.5ML NEB SCH ×4 (01:35→20:00)
[2019-07-22] MEDS: levETIRAcetam 500 MG in NA CHLORIDE 0.9% 100 ML IV SCH ×2 (03:15→16:59)
[2019-07-22] MEDS ORDERED: LEVETIRACETAM 500 MG/5 ML VIAL IV ONE (03:17)
[2019-07-22] MEDS ORDERED: NA CHLORIDE 0.9% 100 ML ONE (03:22)
[2019-07-22 06:30] LABS: Absolute Lymphocytes (CBC) 0.9 K/uL (0.7-4.9); Basophils % 0.4 % (0-1.3); Hematocrit 30.2 % (36.0-45.0); Lymphocytes % 7.1 % (15.3-44.8); MPV 6.8 fL (7.6-11.3); RBC Red Blood Cell Count 3.41 M/uL (3.86-4.86)
[2019-07-22 06:41] LABS: BUN Blood Urea Nitrogen 13 mg/dL (7-18); Bicarbonate 29 mmol/L (21-32); Glucose Level 128 mg/dL (74-106); Potassium 3.3 mmol/L (3.5-5.1); Sodium Level 129 mmol/L (136-145)
--- NOTE | 2019-07-22 07:08 | P.PN ---
Date of Service: 07/22/19 Nursing staff reported patient became umresponsive and had a brief episode of seizure. BP was elevated during the episode. She was given a dose of IV keppra. CT head done was negative for acute changes.
[2019-07-22 07:09] LABS: Magnesium 1.8 mg/dL (1.8-2.4); Phosphorus 2.3 mg/dL (2.5-4.9); Troponin I 0.04 ng/mL (0.0-0.045)
[2019-07-22 08:01] LABS: Urine Appearance CLEAR; Urine Bilirubin NEGATIVE (NEG); Urine Blood 1+ (NEG); Urine Color YELLOW; Urine Glucose NEGATIVE (NEG); Urine Protein NEGATIVE (NEG); Urine Urobilinogen 0.2 mg/dL (0.2-1.0)
[2019-07-22 08:02] LABS: Urine Bacteria <20 /HPF (<20); Urine Culture Reflex Order REFLEXED; Urine Microscopic Reflex ORDER UMIC; Urine RBC <5 /HPF (NONE SEEN)
--- NOTE | 2019-07-22 08:11 | EKG ---
Test Date: 2019-07-21 Test Time: 15:46:47 Gauntlet Pairer: RASHAWN MEASUREMENT RESULTS: Intervals: Rate: 77 ME: QRSD: 82 QT: 368 QTc: 416 Jeff: P: ME: QRS: 83 T: 76 INTERPRETIVE STATEMENTS: Sinus rhythm Voltage criteria for left ventricular hypertrophy Early repolarization Abnormal ECG Compared to ECG 12/14/2018 13:00:57 Sinus tachycardia no longer present Electronically Signed On 07-22-19 08:11:07 BAG MACHINE OPERATOR HELPER by Kee Haile
[2019-07-22] MEDS: ENOXAPARIN 40 MG/0.4 ML SQ SCH ×2 (09:00→09:15)
[2019-07-22] MEDS: POTASSIUM CL SA 10 MEQ TAB PO ONE ×2 (09:00→09:15)
[2019-07-22] MEDS ORDERED: MAGNESIUM SULFATE 1 gm IVPB 1 GM/100 ML BAG IV ONE (09:00)
[2019-07-22] MEDS: NA CHLORIDE 0.9% 1,000 ML IV SCH ×2 (09:14)
[2019-07-22] MEDS ORDERED: HOME MED 1 EA UNK (Ipratropium/Albuterol Sulfate [Combivent Respimat 20-100 Mcg] 1 PUFF) IH PRN (09:21)
[2019-07-22] MEDS ORDERED: LORAZEPAM 0.5 MG TABLET PO PRN (09:25)
[2019-07-22] MEDS: clonazePAM 0.5 MG TAB PO SCH ×3 (10:04→20:35)
[2019-07-22] MEDS: POTASS/SODIUM PHOSPHATE 1 PKT POWD.PACK PO SCH ×3 (10:04→10:12)
[2019-07-22] MEDS ORDERED: HYDRALAZINE HCL 20 MG/ML VIAL IV PRN (12:19)
--- NOTE | 2019-07-22 13:47 | P.PN ---
Subjective Date of Service: 07/22/19 Chief Complaint: Altered Mental status. Subjective: Other (She is anxious Afraid about getting stroke) Review of Systems 10-point ROS is otherwise unremarkable General: Unremarkable ENT: Unremarkable Respiratory: Unremarkable Cardiovascular: Palpitations Gastrointestinal: Nausea Genitourinary: Unremarkable Physical Examination - Vital Signs Temperature: 98.5 F Blood Pressure: 130/70 Pulse: 99 Respirations: 18 Pulse Ox (%): 84 - Physical Exam General: Alert, Mild distress, Confused, Other HEENT: Atraumatic, Normocephalic Neck: Supple, 2+ carotid pulse no bruit Respiratory: Normal air movement Cardiovascular: Normal pulses, Regular rate/rhythm Capillary refill: <2 Seconds Gastrointestinal: Soft and benign, Non-distended Musculoskeletal: No swelling, No contractures Integumentary: No rashes, No significant lesion Neurological: Normal strength at 5/5 x4 extr, Other (Anxious and condused ) Lymphatics: No axilla or inguinal lymphadenopathy Urinary: Other (no bladder distention) External genitalia: Deferred Rectal: Deferred - Studies Laboratory Data (last 24 hrs) 07/21/19 17:15: Sodium 126 L, Potassium 4.6, BUN 17, Creatinine 0.88, Glucose 78 , Total Bilirubin 0.5, AST 27, ALT 22, Alkaline Phosphatase 153 H 07/21/19 17:15: WBC 11.0 H, Hgb 11.3 L, Hct 32.3 L, Plt Count 577 H Assessment & Plan - Problems (Diagnosis) (1) Accelerated hypertension Current Visit: Yes Status: Acute Plan: Coming home medications titrate as needed hydralazine prn monitor under telemetry (2) Metabolic encephalopathy Current Visit: Yes Status: Acute Plan: Metabolic encephalopathy versus DT will monitor neurovital signs closely CT did not show any acute changes Will get MRI Brain DT precautions (3) Seizure disorder Current Visit: Yes Status: Acute Plan: on Keppra ? DT Start on Ativan prn Neurology consult (4) Hyponatremia Onset Date: 07/08/16 Current Visit: No Status: Acute (5) Seizure Current Visit: No Status: Acute (6) Alcohol abuse Onset Date: 04/05/18 Current Visit: No Status: Chronic Plan: DT precautions Will add Thiamine ., Folic acid ,MVT (7) Chronic pain disorder Onset Date: 04/05/18 Current Visit: No Status: Chronic Plan: Continue home meds Titrate as needed (8) Depression with anxiety Onset Date: 06/03/17 Current Visit: No Status: Chronic Plan: Continue home meds Titrate as needed (9) Hyperlipidemia Onset Date: 06/03/17 Current Visit: No Status: Chronic Plan: Continue home meds Qualifiers: (10) Hypertension Onset Date: 06/03/17 Current Visit: No Status: Chronic Plan: Continue home meds Titrate as needed Hydralazine prm Qualifiers: Hypertension type: essential hypertension Qualified Code(s): I10 - Essential (primary) hypertension Discharge Plan: Home - Code Status/Comfort Care Code Status Assessed: Yes Code Status: Full Code Time Spent Managing Pts Care (In Minutes): 48
[2019-07-22] MEDS: MULTIVITAMIN TAB PO SCH ×2 (13:58→14:39)
[2019-07-22] MEDS ORDERED: THIAMINE HCL 100 MG TABLET PO ONE (13:59)
[2019-07-22] MEDS ORDERED: clonazePAM 0.5 MG TAB PO SCH (14:00)
[2019-07-22] MEDS: NS KCL 20MEQ 20 MEQ/1,000 ML BAG IV SCH (14:38)
[2019-07-22] MEDS ORDERED: MORPHINE 2 MG/ML SYR IV PRN (14:41)
[2019-07-22] MEDS ORDERED: HYDROCODONE/APAP 7.5/325 MG TAB PO PRN (14:41)
[2019-07-22] MEDS: METOPROLOL TAR 50 MG TAB PO SCH (16:57)
[2019-07-22] MEDS: LORazepam 2 MG/ML VIAL IV PRN ×2 (16:57→22:09)
[2019-07-22] MEDS: DICLOFENAC SOD D.R. 75 MG TAB PO SCH (20:35)
[2019-07-22] MEDS: FOLIC ACID 1 MG TABLET PO SCH (20:35)
[2019-07-22] MEDS: ATORVASTATIN 10 MG TAB PO SCH (20:35)
[2019-07-22] MEDS: HOME MED 1 EA UNK (Cyclosporine [Restasis] 1 DROP) EACH EYE SCH (20:41)
[2019-07-23] MEDS: IPRATROPIUM BROM 0.5MG/2.5ML NEB SCH ×4 (02:00→20:30)
[2019-07-23] MEDS: levETIRAcetam 500 MG in NA CHLORIDE 0.9% 100 ML IV SCH ×2 (02:39→14:19)
[2019-07-23] MEDS: METOPROLOL TAR 50 MG TAB PO SCH ×2 (06:09→17:45)
[2019-07-23] MEDS: PANTOPRAZOLE 40MG TABLET PO SCH (06:09)
[2019-07-23] MEDS: NS KCL 20MEQ 20 MEQ/1,000 ML BAG IV SCH ×2 (06:11→17:50)
[2019-07-23 06:42] LABS: Absolute Lymphocytes (CBC) 1.5 K/uL (0.7-4.9); Basophils % 0.9 % (0-1.3); Hematocrit 32.3 % (36.0-45.0); Lymphocytes % 21.7 % (15.3-44.8); RBC Red Blood Cell Count 3.58 M/uL (3.86-4.86)
[2019-07-23 06:47] LABS: ALT/SGPT 17 U/L (12-78); AST/SGOT 22 U/L (15-37); Albumin 3.2 g/dL (3.4-5.0); Alkaline Phosphatase 117 U/L (45-117); BUN Blood Urea Nitrogen 6 mg/dL (7-18); Bicarbonate 25 mmol/L (21-32); Bilirubin Total 0.5 mg/dL (0.2-1.0); Glucose Level 86 mg/dL (74-106); Potassium 4.2 mmol/L (3.5-5.1); Protein, Total 5.8 g/dL (6.4-8.2); Sodium Level 135 mmol/L (136-145)
[2019-07-23] MEDS: TIOTROPIUM BR IN SCH (09:00)
[2019-07-23] MEDS: OLODATEROL HCL IN SCH (09:00)
[2019-07-23] MEDS: HOME MED 1 EA UNK (Cyclosporine [Restasis] 1 DROP) EACH EYE SCH ×2 (09:00→21:00)
[2019-07-23] MEDS ORDERED: BIMATOPROST OPHTH DROPS/2.5 ML BTL OPTH SCH ×2 (09:00)
[2019-07-23] MEDS: DICLOFENAC SOD D.R. 75 MG TAB PO SCH ×2 (10:15→21:12)
[2019-07-23] MEDS: clonazePAM 0.5 MG TAB PO SCH ×3 (10:15→21:11)
[2019-07-23] MEDS: FOLIC ACID 1 MG TABLET PO SCH ×2 (10:15→21:12)
[2019-07-23] MEDS: AMITRIPTYLINE 50 MG TAB PO SCH (10:16)
[2019-07-23] MEDS: DULOXETINE 30 MG CAP PO SCH (10:16)
[2019-07-23] MEDS: THIAMINE HCL 100 MG TABLET PO SCH (10:16)
[2019-07-23] MEDS: MULTIVITAMIN TAB PO SCH (10:17)
--- NOTE | 2019-07-23 11:28 | P.PN ---
Subjective Date of Service: 07/23/19 Chief Complaint: Altered Mental status. Subjective: No new changes, Improving Feeling better Denies any chest pain or shortness of breath More alert awake now Review of Systems 10-point ROS is otherwise unremarkable Physical Examination - Vital Signs Temperature: 97.8 F Blood Pressure: 193/91 Pulse: 77 Respirations: 17 Pulse Ox (%): 92 - Physical Exam General: Alert, In no apparent distress, Cachectic HEENT: Atraumatic, Normocephalic Neck: Supple, JVD not distended Respiratory: Clear to auscultation bilaterally Cardiovascular: Normal pulses, Regular rate/rhythm Capillary refill: <2 Seconds Gastrointestinal: Soft and benign, Non-distended, W/out hepatosplenomegaly Musculoskeletal: No clubbing, No swelling Integumentary: No rashes Neurological: Normal strength at 5/5 x4 extr, Sensation intact Lymphatics: No axilla or inguinal lymphadenopathy Urinary: Other (no bladder distention) External genitalia: Deferred Rectal: Deferred Assessment & Plan - Problems (Diagnosis) (1) Accelerated hypertension Current Visit: Yes Status: Acute Plan: Continue home medications titrate as needed hydralazine prn monitor under telemetry (2) Metabolic encephalopathy Current Visit: Yes Status: Acute Plan: Metabolic encephalopathy versus DT More awake alert now will monitor neurovital signs closely CT did not show any acute changes Will get MRI Brain DT precautions (3) Seizure disorder Current Visit: Yes Status: Acute Plan: on Keppra ? DT Start on Ativan prn Neurology consult Awaited (4) Hyponatremia Onset Date: 07/08/16 Current Visit: No Status: Acute Plan: Monitor sodium levels Monitor neuro vital signs On IV fluids (5) Seizure Current Visit: No Status: Acute (6) Alcohol abuse Onset Date: 04/05/18 Current Visit: No Status: Chronic Plan: DT precautions On Thiamine ., Folic acid ,MVT (7) Chronic pain disorder Onset Date: 04/05/18 Current Visit: No Status: Chronic Plan: Continue home meds Titrate as needed (8) Depression with anxiety Onset Date: 06/03/17 Current Visit: No Status: Chronic Plan: Continue home meds Titrate as needed (9) Hyperlipidemia Onset Date: 06/03/17 Current Visit: No Status: Chronic Plan: Continue home meds Qualifiers: (10) Hypertension Onset Date: 06/03/17 Current Visit: No Status: Chronic Plan: Continue home meds Titrate as needed Hydralazine prm Qualifiers: Hypertension type: essential hypertension Qualified Code(s): I10 - Essential (primary) hypertension Discharge Plan: Prison Plan to discharge in: 48 Hours Time Spent Managing Pts Care (In Minutes): 38
[2019-07-23] MEDS: ATORVASTATIN 10 MG TAB PO SCH (21:11)
[2019-07-24] MEDS: IPRATROPIUM BROM 0.5MG/2.5ML NEB SCH ×4 (01:59→20:00)
[2019-07-24] MEDS: levETIRAcetam 500 MG in NA CHLORIDE 0.9% 100 ML IV SCH ×2 (02:14→15:15)
[2019-07-24] MEDS: LORazepam 2 MG/ML VIAL IV PRN ×2 (04:04→07:59)
[2019-07-24] MEDS: METOPROLOL TAR 50 MG TAB PO SCH ×2 (06:23→18:17)
[2019-07-24] MEDS: PANTOPRAZOLE 40MG TABLET PO SCH (06:23)
[2019-07-24] MEDS: NS KCL 20MEQ 20 MEQ/1,000 ML BAG IV SCH ×2 (06:25→19:20)
[2019-07-24] MEDS: AMITRIPTYLINE 50 MG TAB PO SCH (08:54)
[2019-07-24] MEDS: MULTIVITAMIN TAB PO SCH (08:54)
[2019-07-24] MEDS: clonazePAM 0.5 MG TAB PO SCH ×3 (08:54→20:29)
[2019-07-24] MEDS: DULOXETINE 30 MG CAP PO SCH (08:54)
[2019-07-24] MEDS: DICLOFENAC SOD D.R. 75 MG TAB PO SCH ×2 (08:55→20:28)
[2019-07-24] MEDS: THIAMINE HCL 100 MG TABLET PO SCH (08:55)
[2019-07-24] MEDS: FOLIC ACID 1 MG TABLET PO SCH ×2 (08:55→20:29)
[2019-07-24] MEDS: HOME MED 1 EA UNK (Cyclosporine [Restasis] 1 DROP) EACH EYE SCH ×2 (08:56→20:40)
[2019-07-24] MEDS ORDERED: ENOXAPARIN 30 MG/0.3 ML SQ SCH (09:00)
[2019-07-24] MEDS: OLODATEROL HCL IN SCH (09:00)
[2019-07-24] MEDS: TIOTROPIUM BR IN SCH (09:00)
--- NOTE | 2019-07-24 09:24 | P.PN ---
Subjective Date of Service: 07/24/19 Chief Complaint: Altered Mental status. Subjective: No new changes, Improving Feeling better Denies any chest pain or shortness of breath Review of Systems 10-point ROS is otherwise unremarkable ENT: Unremarkable Respiratory: Unremarkable Physical Examination - Vital Signs Temperature: 97.8 F Blood Pressure: 176/86 Pulse: 79 Respirations: 16 Pulse Ox (%): 96 - Physical Exam General: Alert, In no apparent distress HEENT: Atraumatic, Normocephalic Neck: Supple, 2+ carotid pulse no bruit Respiratory: Clear to auscultation bilaterally, Normal air movement Cardiovascular: Regular rate/rhythm, Normal S1 S2 Capillary refill: <2 Seconds Gastrointestinal: Soft and benign, W/out hepatosplenomegaly Musculoskeletal: No clubbing Integumentary: No rashes Neurological: Normal speech, Normal strength at 5/5 x4 extr Lymphatics: No axilla or inguinal lymphadenopathy Urinary: Other (No bladder distention) External genitalia: Deferred Rectal: Deferred - Studies Microbiology Data (last 24 hrs): 07/22/19 06:35 Clean Catch Urine [place] Count - Final 07/22/19 06:35 Clean Catch Urine - Final No growth. Assessment & Plan - Problems (Diagnosis) (1) Accelerated hypertension Current Visit: Yes Status: Acute Plan: Continue home medications titrate as needed hydralazine prn monitor under telemetry (2) Metabolic encephalopathy Current Visit: Yes Status: Acute Plan: encephalopathy resolved More awake alert now will monitor neurovital signs closely CT did not show any acute changes MRI Brain awaited DT precautions (3) Seizure disorder Current Visit: Yes Status: Acute Plan: on Keppra New episode of seizuress No further episodes of seizures Neurology consult Awaited (4) Hyponatremia Onset Date: 07/08/16 Current Visit: No Status: Acute Plan: Monitor sodium levels Monitor neuro vital signs On IV fluids (5) Seizure Current Visit: No Status: Acute (6) Alcohol abuse Onset Date: 04/05/18 Current Visit: No Status: Chronic Plan: DT precautions On Thiamine ., Folic acid ,MVT (7) Chronic pain disorder Onset Date: 04/05/18 Current Visit: No Status: Chronic Plan: Continue home meds Titrate as needed (8) Depression with anxiety Onset Date: 06/03/17 Current Visit: No Status: Chronic Plan: Continue home meds Titrate as needed (9) Hyperlipidemia Onset Date: 06/03/17 Current Visit: No Status: Chronic Plan: Continue home meds Qualifiers: (10) Hypertension Onset Date: 06/03/17 Current Visit: No Status: Chronic Plan: Continue home meds Titrate as needed Hydralazine prm Qualifiers: Hypertension type: essential hypertension Qualified Code(s): I10 - Essential (primary) hypertension Discharge Plan: Home Plan to discharge in: 48 Hours Time Spent Managing Pts Care (In Minutes): 39
--- NOTE | 2019-07-24 10:45 | RAD REPORT ---
EXAM DESCRIPTION: MRI - Brain Wo Cont - 07/24/2019 9:59 am CLINICAL HISTORY: seizure, hypertension COMPARISON: CT head July 21, MRI brain November 2018 TECHNIQUE: Sagittal T1-weighted images were obtained along with axial PD, heavily T2-weighted and T2 -FLAIR images. Axial DWI and ADC mapping sequences were also obtained along with coronal heavily T2-w eighted images. FINDINGS: No intracranial hemorrhage, mass or acute infarction. There is no edema or shift of midlin e structures. No extra-axial fluid collections. Metz-matter/white matter junction is preserved. Signa l voids are seen as a normal finding in the major intracranial vessels. Patient has advanced chronic ischemic change in the lona. This may be minimally progressive since the November 2018 MRI. The extensive cerebral white matter chronic ischemic change is minimally progressive as well. Atrophy is present as well. Ventricles are in proportion to the amount of volume loss. Atrophy is sta ble. Mastoid air cells and paranasal sinuses are clear. IMPRESSION: No acute infarction changes are present. No hemorrhage, mass or acute intracranial findi ng. Extensive chronic ischemic change throughout the cerebral white matter and brainstem. This has shown some progression since November 2018. Atrophy is present and stable from November. Ventricles remain in proportion to volume loss.
[2019-07-24] MEDS ORDERED: HYDRALAZINE HCL 20 MG/ML VIAL IV ONE (11:20)
[2019-07-24] MEDS ORDERED: ALBUTEROL INHALER 60 PUFF/8 GM IH PRN (11:32)
--- NOTE | 2019-07-24 13:08 | RAD REPORT ---
EXAM DESCRIPTION: CT HEAD WITHOUT CONTRAST CLINICAL HISTORY: AMS, Possible Seizure COMPARISON: CT head without contrast 07/21/2019. TECHNIQUE: Axial [address] imaging of the brain. Reformatted coronal and sagittal images ob tained. This examination was performed according to our departmental dose optimization program, which include s automated exposure control, adjustment of the mA and/or kV according to patient size and/or use of iterative reconstruction technique. FINDINGS: Moderately prominent ventricles and sulci due to age-related cortical loss. Moderate decre ased white matter attenuation due to chronic vascular ischemic change. There is no intracranial hemor rhage. No mass or midline shift. No large acute territorial infarction or hyperdense vessel. Normal cerebellum and vermis. Fourth ventricle is midline. Prepontine cisterns are not effaced. Normal appearance of the intraorbital contents. Clear paranasal sinuses and mastoid air cells. Unrema rkable skull base and calvarium. Image facial bones appear intact. Atherosclerosis noted within the i nternal carotid arteries through the cavernous segments. IMPRESSION: 1. Moderate senescent and chronic microvascular white matter ischemic changes. No intrac ranial acute finding. Electronically signed by: Anna Marie Avalos DO 07/22/2019 4:24 AM SUPERVISOR Due to temporary technical issues with the PACS/Fluency reporting system, reports are being signed by the in house radiologist as a courtesy to ensure prompt reporting. The interpreting radiologist is f ully responsible for the content of the report.
[2019-07-24] MEDS: levETIRAcetam 500 MG TAB PO SCH (20:29)
[2019-07-24] MEDS: HEPARIN 5000 UNIT/ML 1 ML VIAL SQ SCH (20:29)
[2019-07-24] MEDS: ATORVASTATIN 10 MG TAB PO SCH (20:29)
[2019-07-24] MEDS: ENSURE ENLIVE 237 ML CAN PO SCH (20:29)
--- NOTE | 2019-07-24 22:23 | CON ---
Reason For Consultation: Consultation called because of altered mental status and new-onset seizure, likely secondary to alcohol. History Of Present Illness: Ms. Richardson is a 73-year-old right-handed patient with hypertension, c hronic obstructive pulmonary disease, and longstanding chronic alcohol use. Apparently came [facility] the emergency room confused with elevated high blood pressure. Patient apparently was drinking beer to quench her thirst, was found to have hyponatremia and elevated blood pressure up to a systoli c of 210. Workup revealed dehydration and potential alcohol withdrawal. She had imaging including b rain MRI, which identified very advanced chronic ischemic changes throughout the brain and white rosangela er, which was notably minimally progressive from November of 2018 when the patient had prior MRI scan. However, nevertheless, these showed extensive chronic ischemic changes throughout the brain, white ma tter, and brainstem. Since the patient has been hospitalized. She did have the withdrawal-type seiz ure on the 16 as a day following hospitalization. It is reported patient lost consciousness and wa s unresponsive with seizure-like activity. She has been put on Keppra and is receiving 500 mg twice daily. She has Ativan with folic acid for DVT prophylaxis along with Klonopin. At my evaluation with the patient, she was fully oriented, back to herself, and followed all commands appropriately. Past Medical History: COPD, hypertension, osteoporosis, depression, anxiety, coronary artery disease , macular degeneration, dyslipidemia, cataracts. Past Surgical History: Cataract surgery right eye, carotid endarterectomy, cholecystectomy, multiple C-sections, tonsillectomy. Social History: Patient has 2 children. Lives with her sister and is . Family History: Heart disease, lung disease in father and stroke in mother and multiple transient is chemic attacks. Current Medications: Keppra 500 mg twice a day, trazodone 50 mg at bedtime, Prilosec 40 mg daily, me clizine 12.5 mg 3 times daily as needed, Ativan 0.5 mg 3 times daily as needed, folate 1 mg daily, ce tirizine 10 mg daily, benzonatate 200 mg daily, baclofen 10 mg 3 times daily, Norvasc 2.5 mg daily, s imvastatin 40 mg at night, atenolol daily, and Combivent 1 puff up to 4 times daily as needed. Review of Systems: She denies recent fevers, chills, nausea, vomiting, myalgias, arthralgias, rash, headache, weight priti nge. Social History: Reports chronic alcohol use. No tobacco use or caffeine use. Review of Systems: Aside from mentioned above, no recent fevers, chills, nausea, vomiting, myalgias, arthralgias, headac he, weight change, rash, psychiatric complaints, or gastrointestinal issues. Physical Examination: Vital Signs: Blood pressure 130/67, pulse of 90, respiratory rate 16, temperature 97.6, oxygen satur ation 95%. Reported weight of 74 pounds, height 4 feet 11 inches, BMI 14.9. General: Ms. Richardson is resting in bed. She is in no acute distress. HEENT: She is normocephalic, atraumatic. Sclerae anicteric. Oropharynx is pink and moist. Neck: Supple. Chest: Clear. Heart: Regular. Extremities: No edema, cyanosis, or clubbing. Neurological: She is alert and oriented to person, place, situation, time. Follows commands appropr iately. She has no focal cranial nerve deficits. No motor, coordination, sensory deficits except mi ld ataxia noted. Mild dysmetria also noted. She will be ambulated with the physical therapist. Laboratory Studies: White blood cell count normal at 6.9, was as high as 12.2 right after her seizur e; hemoglobin 11.1 and 32.3, platelets 530. Chemistries most recently, sodium now 135, potassium 4.2 , chloride 103, BUN 6, creatinine 0.47. Liver function studies are normal despite her alcohol use. Urinalysis shows a trace esterase, this is on the 16th, 1+ blood and 5-10 epithelial cells. Her seru m plasma alcohol level was less than 3 on admission on the 15 indicating possible withdrawal from a lcohol related seizure. Assessment: Ms. Richardson is a 73-year-old patient with multiple medical problems, who is a chronic alcohol user and likely had an alcohol withdrawal related seizure. She is not currently in delirium tremens as blood pressure, pulse is fine, autonomic function is within normal limits. Brain MRI does show extensive cerebral and brainstem white matter ischemic disease potentially aggravated by chroni c alcohol use. She would benefit from detoxing from alcohol and during this time up to the next 2 we eks she would still be at risk for alcohol-related seizures and so Keppra should be continued. Impor tant to continue folic acid and thiamine 100 mg daily, folic acid 1 mg daily. Continue with aggressi ve management, hypertension, dyslipidemia for stroke risk reduction. She may be discharged home. Fo llow up with Dr. Wright in clinic in 1 month. Plan as indicated. Discharge home. We will review EEG and make determination on adjustment of Keppra level after blood level is done out patient. Patient was instructed on importance of stopping alcohol consumption. THAD/JAMILA Voice ID: [id number] Report ID: [id number]
[2019-07-25] MEDS: IPRATROPIUM BROM 0.5MG/2.5ML NEB SCH ×2 (02:00→08:05)
[2019-07-25] MEDS: METOPROLOL TAR 50 MG TAB PO SCH (06:28)
[2019-07-25] MEDS: PANTOPRAZOLE 40MG TABLET PO SCH (06:28)
[2019-07-25] MEDS: NS KCL 20MEQ 20 MEQ/1,000 ML BAG IV SCH (08:40)
[2019-07-25] MEDS: OLODATEROL HCL IN SCH (09:00)
[2019-07-25] MEDS: HOME MED 1 EA UNK (Cyclosporine [Restasis] 1 DROP) EACH EYE SCH (09:00)
[2019-07-25] MEDS: TIOTROPIUM BR IN SCH (09:00)
[2019-07-25] MEDS: MULTIVITAMIN TAB PO SCH (09:10)
[2019-07-25] MEDS: DICLOFENAC SOD D.R. 75 MG TAB PO SCH (09:10)
[2019-07-25] MEDS: THIAMINE HCL 100 MG TABLET PO SCH (09:11)
[2019-07-25] MEDS: DULOXETINE 30 MG CAP PO SCH (09:11)
[2019-07-25] MEDS: clonazePAM 0.5 MG TAB PO SCH (09:11)
[2019-07-25] MEDS: FOLIC ACID 1 MG TABLET PO SCH (09:11)
[2019-07-25] MEDS: levETIRAcetam 500 MG TAB PO SCH (09:12)
[2019-07-25] MEDS: AMITRIPTYLINE 50 MG TAB PO SCH (09:12)
[2019-07-25] MEDS: HEPARIN 5000 UNIT/ML 1 ML VIAL SQ SCH (09:13)
[2019-07-25] MEDS: ENSURE ENLIVE 237 ML CAN PO SCH (09:14)
[2019-07-25 09:15] VITALS: BP 179/82; TEMP 97.4
--- NOTE | 2019-07-25 09:39 | P.DS ---
Admission Date: 07/22/19 Discharge Date: 07/26/19 Disposition: ROUTINE DISCHARGE Discharge Condition: GOOD Reason for Admission: Altered Mental status. - Problems (1) Accelerated hypertension Status: Acute (2) Metabolic encephalopathy Status: Acute (3) Seizure disorder Status: Acute (4) Hyponatremia Onset Date: 07/08/16 Status: Acute (5) Seizure Status: Acute (6) Alcohol abuse Onset Date: 04/05/18 Status: Chronic (7) Chronic pain disorder Onset Date: 04/05/18 Status: Chronic (8) Depression with anxiety Onset Date: 06/03/17 Status: Chronic (9) Hyperlipidemia Onset Date: 06/03/17 Status: Chronic Qualifiers: (10) Hypertension Onset Date: 06/03/17 Status: Chronic Qualifiers: Hypertension type: essential hypertension Qualified Code(s): I10 - Essential (primary) hypertension Brief History of Present Illness: 73-year-old woman with a history of hypertension, COPD, chronic alcohol drinker was transferred from her home to the emergency department to be evaluated for confusion and high blood pressure. Patient reports feeling thirsty most of the time, she stated she drinks beer to quench her thirst. Her sodium level in the ED was as low as 126. Her systolic blood pressure during my examination was 210. Patient looked dry. Serum creatinine is normal. Serum osmolality is low. UA is pending. Patient is placed under observation for further evaluation of altered mental status. Hospital Course: Patient was admitted with acute encephalopathy possibly metabolic vs alcohol delirium . Patient had a stroke workup including MRI which was negative, she was also found to be anxious , she was started on ativan p.r.n. along with clonazepam as a home medication, neuro vital signs were monitored closely. The patient had an episode of possible seizure-like activity while in house and was started on Keppra. she was also had hyponatremia and was start on IV fluids. Neurology was consulted. hyponatremia was better and patient clinically improved well. She was also started on thiamine and folic acid and other medications Neurology recommended continuing Keppra till an EEG is performed as outpatient . The patient is being discharged home today in a stable condition with advice to follow up with PCP in 1 week and also with Neurology in 1-2 weeks. Was also found to have a accelerated hypertension for which antihypertensives were titrated Vital Signs/Physical Exam: Temp Pulse Resp BP Pulse Ox 97.4 F 88 16 179/82 H 93 07/25/19 08:00 07/25/19 08:00 07/25/19 08:00 07/25/19 08:00 07/25/19 08:00 General: Alert, In no apparent distress HEENT: Atraumatic, Normocephalic Neck: Supple Respiratory: Clear to auscultation bilaterally Cardiovascular: Regular rate/rhythm Capillary refill: <2 Seconds Gastrointestinal: Soft and benign, W/out hepatosplenomegaly Neurological: Normal strength at 5/5 x4 extr Laboratory Data at Discharge: WBC 6.9 K/uL (4.3-10.9) D 07/23/19 05:54 Hgb 11.1 g/dL (12.0-15.0) L 07/23/19 05:54 Hct 32.3 % (36.0-45.0) L 07/23/19 05:54 Plt Count 530 K/uL (152-406) H 07/23/19 05:54 Sodium 135 mmol/L (136-145) L 07/23/19 05:54 Potassium 4.2 mmol/L (3.5-5.1) 07/23/19 05:54 BUN 6 mg/dL (7-18) L 07/23/19 05:54 Creatinine 0.47 mg/dL (0.55-1.3) L 07/23/19 05:54 Glucose 86 mg/dL (74-106) 07/23/19 05:54 Phosphorus 2.3 mg/dL (2.5-4.9) L 07/22/19 05:36 Magnesium 1.8 mg/dL (1.8-2.4) 07/22/19 05:36 Total Bilirubin 0.5 mg/dL (0.2-1.0) 07/23/19 05:54 AST 22 U/L (15-37) 07/23/19 05:54 ALT 17 U/L (12-78) 07/23/19 05:54 Alkaline Phosphatase 117 U/L (45-117) 07/23/19 05:54 Troponin I 0.04 ng/mL (0.0-0.045) 07/22/19 05:36 Home Medications: Ipratropium/Albuterol Sulfate [Combivent Respimat 20-100 Mcg] 1 puff IH QID PRN 12/08/18 Simvastatin 20 tab PO DAILY 12/08/18 Omeprazole [Prilosec] 40 mg PO DAILY 12/10/18 Tiotropium Br/Olodaterol HCl [Stiolto Respimat Inhal [place]] 2 puff IN DAILY 02/22 Amitriptyline HCl 50 mg PO DAILY 07/22/19 Bimatoprost [[place] Opthalmic Drops*] 1 drop EACH EYE DAILY 07/22/19 Cyclosporine [Restasis] 1 drop EACH EYE BID 07/22/19 Diclofenac Na [Voltaren D.r*] 75 mg PO BID 07/22/19 Duloxetine HCl [Cymbalta] 30 mg PO DAILY 07/22/19 Metoprolol Tartrate [Lopressor*] 50 mg PO BID 07/22/19 clonazePAM [Clonazepam] 0.5 mg PO TID 07/22/19 Albuterol Inhaler [Ventolin Inhaler*] 2 puff IH Q6H PRN #1 hfa.aer.ad 07/25/19 Folic Acid 1 mg PO DAILY #30 tablet 07/25/19 Thiamine HCl [Vitamin B-1*] 100 mg PO DAILY #30 tablet 07/25/19 levETIRAcetam [Keppra*] 500 mg PO BID #30 tab 07/25/19 New Medications: Albuterol Inhaler [Ventolin Inhaler*] 2 puff IH Q6H PRN #1 hfa.aer.ad PRN Reason: Shortness Of Breath Folic Acid 1 mg PO DAILY #30 tablet levETIRAcetam [Keppra*] 500 mg PO BID #30 tab Thiamine HCl [Vitamin B-1*] 100 mg PO DAILY #30 tablet Diet: AHA Activity: Ad ely Followup: El Wright MD [ASSOCIATE-ACTIVE - CAN ADMIT] - Time spent managing pt's care (in minutes): 40
[2019-07-25 09:49] VITALS: O2SAT 94
--- NOTE | 2019-07-27 07:20 | EEG ---
CHART: [id number] TEST ID#: [id number] DATE OF STUDY: 07/24/2019 THE EEG WAS RECORDED PORTABLE IN THE PATIENTS ROOM ON A 17 CHANNEL MACHINE. ELECTRODES WERE APPLIED IN THE USUAL MANNER USING THE INTERNATIONAL 10-20 SYSTEM. THE WAKING BACKGROUND RHYTHM IN THIS RECORD CONSISTS OF VERY WELL DEVELOPED AND WELL ORGANIZED WAVES OF 10 HZ., MAXIMAL IN THE POSTERIOR HEAD REGIONS WHICH ATTENUATE NORMALLY WITH EYE OPENING. LOW-VOLTAGE 18-22 HZ ACTIVITY IS EXPRESSED IN THE FRONTAL REGIONS. THERE ARE NO FOCAL OR LATERALIZING FEATURES. NO EPILEPTIFORM ACTIVITY APPEARS. SLEEP OCCURRED NATURALLY. IN ADDITION NORMAL SLEEP PATTERNS ARE PRESENT. HYPERVENTILATION WAS NOT PERFORMED. PHOTIC STIMULATION PRODUCED POOR DRIVING BILATERALLY. IMPRESSION: NORMAL EEG FOR THE AGE OF THE PATIENT IN [place], DROWSINESS AND SLEEP.
== END 2019-07-25 11:43 | disposition home or self-care (01) | DRG 71 ==
LOC: ER 15:41 → ERHOLD 22:30 → 2ND 22:47 → OBSVTOIN 07-22 14:57
PROVIDERS: ADMIT Internal Medicine; ATTEND Internal Medicine
DX: G93.41 Metabolic encephalopathy (principal); E87.1 Hypo-osmolality and hyponatremia; E44.0 Moderate protein-calorie malnutrition; Z68.1 Body mass index [BMI] 19.9 or less, adult; I10 Essential (primary) hypertension; J44.9 Chronic obstructive pulmonary disease, unspecified; G40.909 Epilepsy, unspecified, not intractable, without status epilepticus; F10.10 Alcohol abuse, uncomplicated; G89.29 Other chronic pain; F41.8 Other specified anxiety disorders; E78.5 Hyperlipidemia, unspecified; I25.10 Atherosclerotic heart disease of native coronary artery without angina pectoris; Z88.0 Allergy status to penicillin
CPT/HCPCS: 36415; 51702; 70450; 70551; 71045; 80048; 80053; 80320; 81003; 81015; 82947; 83735; 83930; 83935; 84100; 84132; 84439; 84443; 84484; 85025; 87086; 87088; 93005; 94640; 94760; 95819; 96360; 96361; 97110; 97116; 97530; 99285; G0378; J0360; J1644; J1650; J1953; J2405; J3475; J7030; J7040

== ENCOUNTER 2020-01-03 17:39 | Emergency (ER) | payer OTHER ==
--- OUTSIDE RECORDS SUMMARY | 2020-01-03 17:42 | XMS REPORT ---
:1945 Author Organization [facility] t Address [address] [place] [address] Care Team Providers Name Role Phone Unavailable Unavailable Unavailable Problems Condition Condition Condition Status Onset Resolution Last Treatin g Comments Name Details Category Date Date Treatment Clinician Date High High Problem Active cholesterol cholesterol High blood High blood Problem Active pressure pressure Low back Low back Problem Active pain pain Anxiety Anxiety Problem Active Depression Depression Problem Active Chronic Chronic Problem Active obstructive obstructive pulmonary pulmonary disease, disease, unspecified unspecified COPD type COPD type Gastroesoph Gastroesoph Problem Active ageal ageal reflux reflux disease, disease, esophagitis esophagitis presence presence not not specified specified Other Other Problem Active chronic chronic pain pain Seizures Seizures Problem Active Memory Memory Problem Active problem problem Depression Depression Problem Active with with anxiety anxiety Dry mouth Dry mouth Problem Active 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 History of History of Problem Active carotid carotid endarterect endarterect merna merna Hyperlipide Hyperlipide Problem Active grace, grace, unspecified unspecified hyperlipide hyperlipide grace type grace type Herpes Herpes Diagnosis Active zoster zoster without without complicatio complicatio n n Allergies, Adverse Reactions, Alerts Allergy Allergy Status Severity Reaction(s) Onset Inactive Treating C omments Name Type Date Date Clinician codeine Adverse Active Itching/"clim Reaction christiano the regan" Medications Ordered Filled Start Stop Current Ordering Indication Dosage Frequency Signature Comments Components Medication Medication Date Date Medication? Clinician (SIG) Name Name Gabapentin Gabapentin 2019-0 Yes Libra 1 capsule 4-20 Millender as needed 00:00: for severe 00 pain Acyclovir Acyclovir 2020-0 Yes Libra 1 tablet 4-20 Millender 00:00: 00 HydrOXYzine HydrOXYzine 2019-0 Yes Libra 1 table t HCl HCl 4-20 Millender as needed 00:00: for 00 itching Acetaminoph Acetaminoph 2020-0 2020- Yes Libra 1-2 tab let en en 12-24 04-30 Millender as needed 00:00: 00:00 for 00 :00 pain/fever Gabapentin Gabapentin Yes Libra 1 capsule 3-11 Millender as needed 00:00: for pain 00 Amitriptyli Amitriptyli Yes Libra 1 tablet ne HCl ne HCl Millender at bedtime Omeprazole Omeprazole Yes Libra 1 capsule Millender Simvastatin Simvastatin Yes Libra 1 tablet Millender in the evening Metoprolol Metoprolol Yes Libra 1 tablet Tartrate Tartrate Millender Combivent Combivent Yes Libra 1 puff as Respimat Respimat Millender needed Duloxetine Duloxetine Yes Libra 1 capsule HCl HCl Millender Clonazepam Clonazepam Yes Libra 1 tablet Millender at bedtime Restasis Restasis Yes Libra 1 drop Millender into affected eye Levetiracet Levetiracet Yes Libra 1 tablet am am Millender Amlodipine Amlodipine Yes Libra 1 tablet Besylate Besylate Millender Stiolto Stiolto Yes Libra 2 puffs Respimat Respimat Millender Encounters Start End Encounter Admission Attending Care Care Encounter Date/Time Date/Time Type Type Clinicians Facility Department ID 2019-12-25 2019-12-25 [facility] 3 [id number] 10:00:00 10:00:00 [facility] 2019-11-24 2019-11-24 [facility] [id number] 08:25:00 08:25:00 [facility] 2019-11-15 2019-11-15 [facility] [place] [facility] 2 [id number] 10:30:00 10:30:00 [facility] Medicine
--- OUTSIDE RECORDS SUMMARY | 2020-01-03 17:42 | XMS REPORT ---
:1945 Author Organization [employer] Care Team Providers Name Role Phone Libra Eduardo Provider Role Unavailable Allergies, Adverse Reactions, Alerts Substance Reaction Event Type codeine Itching/"climbing the regan" Non Drug Al lergy Problems Problem Type Condition Code Onset Dates Condition Statu s Problem Other chronic pain G89.29 Active Problem Depression with anxiety F41.8 Acti ve Problem Reflux K21.9 Active Problem COPD (chronic obstructive pulmonary J44.9 Active disease) Problem Anxiety F41.9 Active Problem Essential hypertension I10 Activ e Problem Seizures R56.9 Active Problem Memory problem R41.3 Active Problem Depression F32.9 Active Problem Low back pain M54.5 Active Problem History of carotid endarterectomy Z98.890 Active Problem High blood pressure I10 Active Assessment Herpes zoster without complication B02.9 Active Problem Gastroesophageal reflux disease, K21.9 Active esophagitis presence not specified Problem Chronic obstructive pulmonary J44.9 Active disease, unspecified COPD type Problem Hyperlipidemia, unspecified E78.5 Active hyperlipidemia type Problem High cholesterol E78.00 Active Problem Atherosclerosis of left carotid I65.22 Active artery Problem Dry mouth R68.2 Active Medications Medication Code Code Instructions Start End Date Status Dosage System Date Metoprolol [facility] 43646417046 50 MG Orally Active 1 ta blet Tartrate Twice a day Acetaminophen ND 62936564191 500 MG Orally December Active 1-2 tablet every 6 hrs; 2019 as needed not to exceed 6 for tablets in 24 pain/fever hours Omeprazole ND 68775642881 40 MG Orally Active 1 ca psule Once a day Clonazepam ND 41488681717 0.5 MG Orally Active 1 t ablet Once a day as at bedtime needed Levetiracetam ND 80927655107 500 MG Orally Active 1 tablet Twice a day Amitriptyline ND 61613980782 50 MG Orally Active 1 tablet HCl Once a day at bedtime Gabapentin ND 68572329511 100 MG Orally December Active 1 c apsule Twice a day 2019 as needed for severe pain Stiolto Respimat [facility] 11727688304 2.5mcg/2.5mcg Activ e 2 puffs inhaled Once a day Amlodipine ND 39307656441 5 MG Orally Active 1 tab let Besylate Once a day Duloxetine HCl ND 29882314911 20 MG Orally Active 1 capsule Twice a day Acyclovir ND 38328869388 800 MG Orally December Active 1 ta blet Five times 2019 daily Combivent [facility] 46016989318 20MCG /100 MCG Active 1 p uff as Respimat Oral Inhalation needed 4 times daily Gabapentin ND 03252782387 300 MG Orally November Active 1 c apsule Once a day in 2019 as needed evening for pain Restasis [facility] 70968721276 0.05 % Active 1 drop Ophthalmic into Twice a day affected eye HydrOXYzine HCl [facility] 32930977397 25 MG Orally December Active 1 tablet every 8 hrs 2019 as needed for itching Simvastatin ND 59519084814 20 MG Orally Active 1 t ablet Once a day in the evening Results No Known Results Summary Purpose eClinicalWorks Submission
--- OUTSIDE RECORDS SUMMARY | 2020-01-03 17:42 | XMS REPORT ---
:1945 Author Organization [employer] Care Team Providers Name Role Phone Libra Eduardo Provider Role Unavailable Allergies No Known Allergies Problems Problem Type Condition Code Onset Dates Condition Statu s Problem High cholesterol E78.00 Active Problem High blood pressure I10 Active Assessment Low back pain M54.5 Active Problem Anxiety F41.9 Active Problem Depression F32.9 Active Problem COPD (chronic obstructive pulmonary J44.9 Active disease) Problem Reflux K21.9 Active Problem Other chronic pain G89.29 Active Problem Seizures R56.9 Active Problem Memory problem R41.3 Active Medications Medication Code System Code Instructions Start End Date Status Dos age Date Gabapentin [facility] 58855461319 300 MG Orally November 14, Active 1 capsule Once a day in 2019 as needed evening for pain Results No Known Results Summary Purpose eClinicalWorks Submission
--- OUTSIDE RECORDS SUMMARY | 2020-01-03 17:42 | XMS REPORT ---
:1945 [facility] Team Providers Name Role Phone Libra Eduardo Provider Role Unavailable Allergies, Adverse Reactions, Alerts Substance Reaction Event Type N.K.D.A. Info Not Available Non Drug Allergy Problems Problem Type Condition Code Onset Dates Condition Statu s Assessment Depression with anxiety F41.8 Acti ve Assessment Other chronic pain G89.29 Active Assessment Low back pain M54.5 Active Assessment Seizures R56.9 Active Assessment Dry mouth R68.2 Active Problem High cholesterol E78.00 Active Assessment Gastroesophageal reflux disease, K21.9 Active esophagitis presence not specified Problem Dry mouth R68.2 Active Assessment Chronic obstructive pulmonary J44.9 Active disease, unspecified COPD type Problem Other chronic pain G89.29 Active Problem Depression with anxiety F41.8 Acti ve Problem Reflux K21.9 Active Problem COPD (chronic obstructive pulmonary J44.9 Active disease) Problem Anxiety F41.9 Active Assessment Atherosclerosis of left carotid I65.22 Active artery Assessment History of carotid endarterectomy Z98.890 Active Problem Essential hypertension I10 Activ e Assessment Hyperlipidemia, unspecified E78.5 Active hyperlipidemia type Problem Seizures R56.9 Active Problem Memory problem R41.3 Active Problem Depression F32.9 Active Problem Low back pain M54.5 Active Problem History of carotid endarterectomy Z98.890 Active Problem High blood pressure I10 Active Assessment Essential hypertension I10 Activ e Problem Gastroesophageal reflux disease, K21.9 Active esophagitis presence not specified Problem Chronic obstructive pulmonary J44.9 Active disease, unspecified COPD type Problem Hyperlipidemia, unspecified E78.5 Active hyperlipidemia type Problem Atherosclerosis of left carotid I65.22 Active artery Medications Medication Code Code Instructions Start End Status Dosage System Date Date Amitriptyline [facility] 70857251909 50 MG Orally Active 1 tablet at HCl Once a day bedtime Omeprazole ND 76099745242 40 MG Orally Active 1 ca psule Once a day Simvastatin ND 94288206844 20 MG Orally Active 1 t ablet in Once a day the evening Metoprolol [facility] 22990047375 50 MG Orally Active 1 ta blet Tartrate Twice a day Combivent [facility] 47909772753 20MCG /100 MCG Active 1 p uff as Respimat Oral Inhalation needed 4 times daily Duloxetine HCl [facility] 81800629682 20 MG Orally Active 1 capsule Twice a day Clonazepam [facility] 52884320110 0.5 MG Orally Active 1 t ablet at Once a day as bedtime needed Restasis [facility] 76752873388 0.05 % Active 1 drop into Ophthalmic affected Twice a day eye Levetiracetam [facility] 05383325749 500 MG Orally Active 1 tablet Twice a day Amlodipine [facility] 58362529102 5 MG Orally Active 1 tab let Besylate Once a day Stiolto Respimat [facility] 95628990933 2.5mcg/2.5mcg Activ e 2 puffs inhaled Once a day Gabapentin [facility] 95641056471 100 MG Orally November Active 1 c apsule Once a day in 2019 as needed evening for pain Results No Known Results Summary Purpose eClinicalWorks Submission
--- NOTE | 2020-01-03 18:03 | EDPHYS ---
Physician Documentation [facility] Name: Shilpa Richardson Age: 74 yrs Sex: Female : 1945 Arrival Date: 01/03/2020 Time: 17:40 Bed 16 Private MD: Temo Tran E ED Physician Shaheen Montelongo HPI: 01/02 17:50 This 74 yrs old Female presents to ER via EMS with complaints of Rash. jr8 17:50 The patient's rash thought to be caused by an unknown cause. The rash is located on the jr8 left neck, chest, shoulder, back. The rash can be described as crusted, erythematous, urticarial. Onset: The symptoms/episode began/occurred gradually, 5 day(s) ago. Associated signs and symptoms: Pertinent positives: burning sensation, Pain. Severity of symptoms: At their worst the symptoms were mild in the emergency department the symptoms are unchanged. The patient has not experienced similar symptoms in the past. The patient has not recently seen a physician. Historical: - Allergies: 17:44 adhesive tape; hb 17:44 Codeine; hb 17:44 Diphenhydramine; hb 17:44 Erythromycin; hb 17:44 PENICILLINS; hb 17:44 Tape; hb - Home Meds: 17:44 clonidine HCl 0.1 mg Oral tab [Active]; Combivent Inhl [Active]; hb hydrocodone-acetaminophen 7.5-325 mg/15 mL Oral soln take one tablespoon TID [Active]; Lyrica 100mg Oral 2 times per day [Active]; meloxicam 15 mg Oral tab 1 tab once daily [Active]; Restasis ophthalmic 1 drop 2 times per day [Active]; Silenor 6 mg Oral tab 1 tab once daily [Active]; alprazolam 1 mg Oral tab BID [Active]; amlodipine 2.5 mg tab 1 tab once daily [Active]; atenolol 25 mg Oral tab once daily [Active]; baclofen 10 mg Oral tab BID [Active]; simvastatin 20 mg Oral tab once daily [Active]; Stiolto Respimat 2.5-2.5 mcg/actuation inhalation mist 2 puffs once daily [Active]; - PMHx: 17:44 Anxiety; Alcoholism; Carotid blockage; Chronic pain; COPD; Depression; Hypertension; hb - Immunization history:: Adult Immunizations up to date. - Social history:: Smoking status: Patient denies any tobacco usage or history of. ROS: 17:50 Eyes: Negative for injury, pain, redness, and discharge, ENT: Negative for injury, jr8 pain, and discharge, Neck: Negative for injury, pain, and swelling, Cardiovascular: Negative for chest pain, palpitations, and edema, Respiratory: Negative for shortness of breath, cough, wheezing, and pleuritic chest pain, Abdomen/GI: Negative for abdominal pain, nausea, vomiting, diarrhea, and constipation, Back: Negative for injury and pain, MS/Extremity: Negative for injury and deformity, Neuro: Negative for headache, weakness, numbness, tingling, and seizure. 17:50 Skin: Positive for rash. Exam: 17:50 Eyes: Pupils equal round and reactive to light, extra-ocular motions intact. Lids and jr8 lashes normal. Conjunctiva and sclera are non-icteric and not injected. Cornea within normal limits. Periorbital areas with no swelling, redness, or edema. ENT: Nares patent. No nasal discharge, no septal abnormalities noted. Tympanic membranes are normal and external auditory canals are clear. Oropharynx with no redness, swelling, or masses, exudates, or evidence of obstruction, uvula midline. Mucous membranes moist. Neck: Trachea midline, no thyromegaly or masses palpated, and no cervical lymphadenopathy. Supple, full range of motion without nuchal rigidity, or vertebral point tenderness. No Meningismus. Cardiovascular: Regular rate and rhythm with a normal S1 and S2. No gallops, murmurs, or rubs. Normal PMI, no JVD. No pulse deficits. Respiratory: Lungs have equal breath sounds bilaterally, clear to auscultation and percussion. No rales, rhonchi or wheezes noted. No increased work of breathing, no retractions or nasal flaring. Abdomen/GI: Soft, non-tender, with normal bowel sounds. No distension or tympany. No guarding or rebound. No evidence of tenderness throughout. Back: No spinal tenderness. No costovertebral tenderness. Full range of motion. MS/ Extremity: Pulses equal, no cyanosis. Neurovascular intact. Full, normal range of motion. Neuro: Awake and alert, GCS 15, oriented to person, place, time, and situation. Cranial nerves II-XII grossly intact. Motor strength 5/5 in all extremities. Sensory grossly intact. Cerebellar exam normal. Normal gait. 17:50 Skin: rash a moderate rash is noted, rash can be described as erythematous, vesicular, zoster, on the left chest, neck, shoulder, upper back. Does not cross midline . Vital Signs: 17:41 BP 168 / 93; Pulse 88; Resp 18; Temp 97.8; Pulse Ox 96% on 2 lpm NC; Weight 40.37 kg; hb Height 5 ft. 1 in. (154.94 cm); Pain 8/10; 17:41 Body Mass Index 16.82 (40.37 kg, 154.94 cm) hb MDM: 17:42 Patient medically screened. jr8 17:50 Data reviewed: vital signs, nurses notes, and as a result, I will discharge patient. jr8 Data interpreted: Pulse oximetry: on room air is 96 %. Interpretation: normal. Counseling: I had a detailed discussion with the patient and/or guardian regarding: the historical points, exam findings, and any diagnostic results supporting the discharge/admit diagnosis, the need for outpatient follow up, a family practitioner, to return to the emergency department if symptoms worsen or persist or if there are any questions or concerns that arise at home. Administered Medications: No medications were administered Disposition: 18:40 Co-signature as Attending Physician, Shaheen Montelongo MD I agree with the assessment and kdr plan of care. Disposition: 01/03/20 18:02 Discharged to Home. Impression: Zoster [herpes zoster]. - Condition is Stable. - Discharge Instructions: Shingles. - Prescriptions for Acyclovir 800 mg Oral Tablet - take 1 tablet by ORAL route 5 times per day for 7 days; 35 tablet. Keflex 500 mg Oral Capsule - take 1 capsule by ORAL route every 8 hours for 7 days; 21 capsule. - Medication Reconciliation Form, Thank You Letter, Antibiotic Education, Prescription Opioid Use form. - Follow up: Private Physician; When: As needed; Reason: Wound Recheck, Recheck today's complaints, Continuance of care, Re-evaluation by your physician. - Problem is new. - Symptoms have improved. Signatures: Shaheen Montelongo MD MD kdr Roszak, Josh, PA PA jr8 Nelly Jackson RN RN hb Arleen Tafoya RN RN vc Corrections: (The following items were deleted from the chart) 18:36 18:02 01/03/2020 18:02 Discharged to Home. Impression: Zoster [herpes zoster]. vc Condition is Stable. Forms are Medication Reconciliation Form, Thank You Letter, Antibiotic Education, Prescription Opioid Use. Follow up: Private Physician; When: As needed; Reason: Wound Recheck, Recheck today's complaints, Continuance of care, Re-evaluation by your physician. Problem is new. Symptoms have improved. jr8
--- NOTE | 2020-01-03 18:03 | ER ---
Nurse's Notes [facility] Name: Shilpa Richardson Age: 74 yrs Sex: Female : 1945 Arrival Date: 01/03/2020 Time: 17:40 Bed 16 Private MD: Temo Tran E Diagnosis: Zoster [herpes zoster] Presentation: 01/02 17:41 Chief complaint: EMS states: Painful and itchy rash on trunk and left arm x 3 days. hb Denies fever. Coronavirus screen: Proceed with normal triage. Ebola Screen: No symptoms or risks identified at this time. Risk Assessment: Do you want to hurt yourself or someone else? Patient reports no desire to harm self or others. Onset of symptoms was December 31, 2019. 17:41 Method Of Arrival: EMS: [facility] hb 17:41 Acuity: PATRICIA 4 hb 18:09 Initial Sepsis Screen: Does the patient meet any 2 criteria? No. Patient's initial vc sepsis screen is negative. Does the patient have a suspected source of infection? No. Patient's initial sepsis screen is negative. Triage Assessment: 18:07 General: Appears in no apparent distress. uncomfortable, Behavior is calm, cooperative, vc appropriate for age. Pain:. Historical: - Allergies: 17:44 adhesive tape; hb 17:44 Codeine; hb 17:44 Diphenhydramine; hb 17:44 Erythromycin; hb 17:44 PENICILLINS; hb 17:44 Tape; hb - Home Meds: 17:44 clonidine HCl 0.1 mg Oral tab [Active]; Combivent Inhl [Active]; hb hydrocodone-acetaminophen 7.5-325 mg/15 mL Oral soln take one tablespoon TID [Active]; Lyrica 100mg Oral 2 times per day [Active]; meloxicam 15 mg Oral tab 1 tab once daily [Active]; Restasis ophthalmic 1 drop 2 times per day [Active]; Silenor 6 mg Oral tab 1 tab once daily [Active]; alprazolam 1 mg Oral tab BID [Active]; amlodipine 2.5 mg tab 1 tab once daily [Active]; atenolol 25 mg Oral tab once daily [Active]; baclofen 10 mg Oral tab BID [Active]; simvastatin 20 mg Oral tab once daily [Active]; Stiolto Respimat 2.5-2.5 mcg/actuation inhalation mist 2 puffs once daily [Active]; - PMHx: 17:44 Anxiety; Alcoholism; Carotid blockage; Chronic pain; COPD; Depression; Hypertension; hb - Immunization history:: Adult Immunizations up to date. - Social history:: Smoking status: Patient denies any tobacco usage or history of. Screenin:06 Abuse screen: Denies threats or abuse. Nutritional screening: No deficits noted. vc Tuberculosis screening: No symptoms or risk factors identified. Fall Risk None identified. Assessment: 18:00 General: Appears in no apparent distress. uncomfortable, Behavior is calm, cooperative, vc appropriate for age. Pain: Complains of pain in to the skin of the left side of chest, left neck, and left side of posterior shoulder. Neuro: Level of Consciousness is awake, alert, obeys commands, Oriented to person, place, time, situation, Appropriate for age. Cardiovascular: Capillary refill < 3 seconds Patient's skin is warm and dry. Respiratory: Airway is patent Respiratory effort is even, unlabored, Respiratory pattern is regular, symmetrical. GI: No signs and/or symptoms were reported involving the gastrointestinal system. : No signs and/or symptoms were reported regarding the genitourinary system. EENT: No signs and/or symptoms were reported regarding the EENT system. Derm: Wound noted anterior right chest, right side of neck, right side of posterior shoulder. 18:19 Reassessment:. vc Vital Signs: 17:41 BP 168 / 93; Pulse 88; Resp 18; Temp 97.8; Pulse Ox 96% on 2 lpm NC; Weight 40.37 kg; hb Height 5 ft. 1 in. (154.94 cm); Pain 8/10; 17:41 Body Mass Index 16.82 (40.37 kg, 154.94 cm) hb ED Course: 17:40 Patient arrived in ED. am2 17:42 Enrico Fry PA is PHCP. jr8 17:42 Shaheen Montelongo MD is Attending Physician. jr8 17:43 Triage completed. hb 17:44 Arm band placed on. hb 18:05 Arleen Tafoya, RN is Primary Nurse. vc 18:10 Patient has correct armband on for positive identification. Pulse ox on. NIBP on. vc 18:30 Temo Tran MD is Private Physician. am2 18:32 No provider procedures requiring assistance completed. Patient did not have IV access vc during this emergency room visit. Administered Medications: No medications were administered Outcome: 18:02 Discharge ordered by . mikie 18:33 Discharged to home via ambulance. vc 18:33 Condition: good 18:33 Discharge instructions given to patient, Instructed on discharge instructions, follow up and referral plans. medication usage, Demonstrated understanding of instructions, follow-up care, medications, Prescriptions given X 2. 18:36 Patient left the ED. vc Signatures: Enrico Fry PA PA jr8 Nelly Jackson, RN RN hb Dorene Bell am2 Arleen Tafoya RN RN vc Corrections: (The following items were deleted from the chart) 17:46 17:41 Chief complaint: EMS states: Painful itchy rash on trunk and left arm x 3 days. hb Denies fever. hb
[2020-01-03 18:42] VITALS: BP 168/93; TEMP 97.8; O2SAT 96
== END 2020-01-03 18:36 | disposition home or self-care (01) ==
LOC: ER 17:39
DX: B02.9 Zoster without complications (principal); Z88.6 Allergy status to analgesic agent; Z88.0 Allergy status to penicillin; Z88.3 Allergy status to other anti-infective agents; J44.9 Chronic obstructive pulmonary disease, unspecified; I10 Essential (primary) hypertension
CPT/HCPCS: 99283

== ENCOUNTER 2020-01-10 04:18 | Inpatient (IN) | payer OTHER ==
--- OUTSIDE RECORDS SUMMARY | 2020-01-10 04:21 | XMS REPORT ---
:1945 [facility] Care Team Providers Name Role Phone Libra [...] End Status Dosage System Date Date Amitriptyline [facility] 95368855456 50 MG Orally Active 1 tablet at HCl Once a day bedtime Omeprazole ND 23239649399 40 MG Orally Active 1 ca psule Once a day Simvastatin ND 29145914621 20 MG Orally Active 1 t ablet in Once a day the evening Metoprolol [facility] 82980105970 50 MG Orally Active 1 ta blet Tartrate Twice a day Combivent [facility] 75376879201 20MCG /100 MCG Active 1 p uff as Respimat Oral Inhalation needed 4 times daily Duloxetine HCl [facility] 13091048143 20 MG Orally Active 1 capsule Twice a day Clonazepam [facility] 60424117057 0.5 MG Orally Active 1 t ablet at Once a day as bedtime needed Restasis [facility] 42204173880 0.05 % Active 1 drop into Ophthalmic affected Twice a day eye Levetiracetam [facility] 54490491886 500 MG Orally Active 1 tablet Twice a day Amlodipine [facility] 72262513629 5 MG Orally Active 1 tab let Besylate Once a day Stiolto Respimat [facility] 68895428257 2.5mcg/2.5mcg Activ e 2 puffs inhaled Once a day Gabapentin [facility] 13716144347 100 MG Orally November Active 1 c apsule Once a day in 2019 as needed evening for pain Results No Known Results Summary Purpose eClinicalWorks Submission
--- OUTSIDE RECORDS SUMMARY | 2020-01-10 04:21 | XMS REPORT ---
[...] End Date Status Dos age Date Gabapentin [facility] 35118896754 300 MG Orally November 14, Active 1 capsule Once a day in 2019 as needed evening for pain Results No Known Results Summary Purpose eClinicalWorks Submission
--- OUTSIDE RECORDS SUMMARY | 2020-01-10 04:21 | XMS REPORT ---
:1945 Author Organization [facility] t Address [address] [place] [address] Care Team Providers Name Role Phone Unavailable [...] ID 2019-12-25 2019-12-25 Outpatient [place] 3 [id number] 10:00:00 10:00:00 [facility] 2019-11-24 2019-11-24 Outpatient [facility] [facility] 3 [id number] 08:25:00 08:25:00 [facility] 2019-11-15 2019-11-15 [place] [facility] 2 [id number] 10:30:00 10:30:00 [facility]
--- OUTSIDE RECORDS SUMMARY | 2020-01-10 04:22 | XMS REPORT ---
[...] End Date Status Dosage System Date Metoprolol [facility] 31008057986 50 MG Orally Active 1 ta blet Tartrate Twice a day Acetaminophen ND 02441406104 500 MG Orally December Active 1-2 tablet every 6 hrs; 2019 as needed not to exceed 6 for tablets in 24 pain/fever hours Omeprazole ND 43081957526 40 MG Orally Active 1 ca psule Once a day Clonazepam ND 83539206617 0.5 MG Orally Active 1 t ablet Once a day as at bedtime needed Levetiracetam ND 37716794465 500 MG Orally Active 1 tablet Twice a day Amitriptyline ND 14412797729 50 MG Orally Active 1 tablet HCl Once a day at bedtime Gabapentin ND 95085526909 100 MG Orally December Active 1 c apsule Twice a day 2019 as needed for severe pain Stiolto Respimat [facility] 28290739976 2.5mcg/2.5mcg Activ e 2 puffs inhaled Once a day Amlodipine ND 56833372847 5 MG Orally Active 1 tab let Besylate Once a day Duloxetine HCl ND 16146254272 20 MG Orally Active 1 capsule Twice a day Acyclovir ND 41067874314 800 MG Orally December Active 1 ta blet Five times 2019 daily Combivent [facility] 68548339853 20MCG /100 MCG Active 1 p uff as Respimat Oral Inhalation needed 4 times daily Gabapentin ND 25758291396 300 MG Orally November Active 1 c apsule Once a day in 2019 as needed evening for pain Restasis [facility] 32276837149 0.05 % Active 1 drop Ophthalmic into Twice a day affected eye HydrOXYzine HCl [facility] 04640089869 25 MG Orally December Active 1 tablet every 8 hrs 2019 as needed for itching Simvastatin ND 86643320424 20 MG Orally Active 1 t ablet Once a day in the evening Results No Known Results Summary Purpose eClinicalWorks Submission
[2020-01-10] MEDS ORDERED: NA CHLORIDE 0.9% 1,000 ML ONE (04:46)
[2020-01-10 05:02] LABS: Absolute Lymphocytes (CBC) 2.4 K/uL (0.7-4.9); Basophils % 0.9 % (0-1.3); Hematocrit 33.3 % (36.0-45.0); Lymphocytes % 25.3 % (15.3-44.8); MPV 6.6 fL (7.6-11.3); RBC Red Blood Cell Count 3.61 M/uL (3.86-4.86)
[2020-01-10 05:05] LABS: Protime INR 0.92
[2020-01-10 05:14] LABS: ALT/SGPT 20 U/L (12-78); AST/SGOT 27 U/L (15-37); Albumin 3.6 g/dL (3.4-5.0); Alkaline Phosphatase 144 U/L (45-117); BUN Blood Urea Nitrogen 15 mg/dL (7-18); Bicarbonate 23 mmol/L (21-32); Bilirubin Direct < 0.1 mg/dL (0-0.2); Bilirubin Total 0.3 mg/dL (0.2-1.0); CKMB Creatine Kinase MB 1.2 ng/mL (0.3-3.6); Creatine Phosphokinase 50 U/L (26-192); Glucose Level 84 mg/dL (74-106); Lipase 214 U/L (73-393); Magnesium 1.8 mg/dL (1.8-2.4); Potassium 4.9 mmol/L (3.5-5.1); Protein, Total 7.2 g/dL (6.4-8.2); Sodium Level 129 mmol/L (136-145); Troponin (Emerg Dept Use Only) < 0.02 ng/mL (0.0-0.045)
--- NOTE | 2020-01-10 06:48 | ER ---
Nurse's Notes [facility] Name: Shilpa Richardson Age: 74 yrs Sex: Female : 1945 Arrival Date: 01/10/2020 Time: 04:19 Bed 4 Private MD: Diagnosis: Syncope and collapse;Alcohol abuse with intoxication, unspecified;Bradycardia, unspecified Presentation: 01/09 04:32 Chief complaint: EMS states: pt was found on the ground by her roommate, pt reports she sg is unsure of what happened and unsure of how she ended up on the ground, EMS state pt bradycardic upon arrival with a HR in the 40's and Systolic BP registering in the 80's. Coronavirus screen: Proceed with normal triage. Ebola Screen: Patient negative for fever greater than or equal to 101.5 degrees Fahrenheit, and additional compatible Ebola Virus Disease symptoms Patient denies exposure to infectious person. Patient denies travel to an Ebola-affected area in the 21 days before illness onset. No symptoms or risks identified at this time. Initial Sepsis Screen: Does the patient meet any 2 criteria? No. Patient's initial sepsis screen is negative. Does the patient have a suspected source of infection? No. Patient's initial sepsis screen is negative. Risk Assessment: Do you want to hurt yourself or someone else? Patient reports no desire to harm self or others. Onset of symptoms was January 10, 2020. Care prior to arrival: None. 04:32 Method Of Arrival: EMS: [facility] sg 04:32 Acuity: PATRICIA 2 sg Triage Assessment: 04:35 General: Appears unkempt, emaciated, Behavior is drowsy, Smells of alcohol. Neuro: sg Level of Consciousness is awake, obeys commands, confused, Oriented to person, Speech delayed responses to questioning. Facial symmetry appears normal. Respiratory: Airway is patent Respiratory effort is even, unlabored, Respiratory pattern is regular. Derm: Skin is pale, Skin temperature is cool. Historical: - Allergies: 04:35 adhesive tape; sg 04:35 Codeine; sg 04:35 Diphenhydramine; sg 04:35 Erythromycin; sg 04:35 PENICILLINS; sg 04:35 Tape; sg - PMHx: 04:35 Alcoholism; Anxiety; Carotid blockage; Chronic pain; COPD; Depression; Hypertension; sg - Immunization history:: Adult Immunizations unknown. - Social history:: Smoking status: Patient denies any tobacco usage or history of. Screenin:44 Abuse screen: Denies threats or abuse. Nutritional screening: No deficits noted. ea Tuberculosis screening: No symptoms or risk factors identified. Fall Risk Fall in past 12 months (25 points). IV access (20 points). Assessment: 04:45 General: Appears uncomfortable, Behavior is calm, cooperative, appropriate for age. ea 04:45 Pain: Complains of pain in back. Neuro: Level of Consciousness is responds to verbal ea stimulus. Oriented to person. Cardiovascular: Patient's skin is warm and dry. Respiratory: Airway is patent Respiratory effort is even, unlabored, Respiratory pattern is regular, agonal. Derm: Skin is dry, Skin is pale, Skin temperature is warm. 05:50 Reassessment: Patient and/or family updated on plan of care and expected duration. Pain ea level reassessed. Pt resting with eyes closed, respirations even and unlabored, chest expansions even and symmetrical. 06:50 Reassessment: Patient and/or family updated on plan of care and expected duration. Pain ea level reassessed. Pt resting with eyes closed, respirations even and unlabored, chest expansions even and symmetrical. Vital Signs: 04:44 BP 92 / 50; Pulse 69; Resp 18; Temp 97.2; Pulse Ox 92% on R/A; Weight 39.92 kg; Height ea 4 ft. 11 in. (149.86 cm); 06:50 BP 104 / 61; Pulse 61; Resp 18; Pulse Ox 100% on NC; ea 08:30 BP 112 / 50; Pulse 68; Resp 16; Pulse Ox 99% on R/A; hb 04:44 Body Mass Index 17.77 (39.92 kg, 149.86 cm) ea ED Course: 04:19 Patient arrived in ED. ds1 04:25 Missed attempt(s): 22 gauge in left wrist. Bleeding controlled, band aid applied, sg catheter tip intact. 04:28 José Manuel Salas MD is Attending Physician. tw4 04:30 Inserted saline lock: 20 gauge in right EJ, using aseptic technique. ,using aseptic ea technique. per Dr. salas Blood collected. 04:33 Triage completed. sg 04:35 Arm band placed on. sg 04:44 Sandie Jha, RN is Primary Nurse. ea 04:44 Patient has correct armband on for positive identification. Bed in low position. Call ea light in reach. Side rails up X2. 05:07 CT Head C Spine In Process Unspecified. EDMS 06:30 No provider procedures requiring assistance completed. Patient admitted, IV remains in ea place. 06:47 Rashmi Walter MD is Hospitalizing Provider. tw4 08:07 Primary Nurse role handed off by Sandie Jha RN 09:13 Irma Jimenez, RN is Primary Nurse. iw Administered Medications: No medications were administered Outcome: 06:48 Decision to Hospitalize by Provider. tw4 09:13 Admitted to Med/surg accompanied by tech, via wheelchair, room 212, pt to go to MRI iw prior to going upstairs. 09:13 Condition: good 09:13 Discharge instructions given to patient, Instructed on the need for admit. 09:14 Patient left the ED. iw Signatures: Dispatcher [employer] EDMS Hollie Kumar Saul Castañeda, ANJUM VALERO Alexandra Cloud ds1 Irma Jimenez, ANJUM VALERO Nelly Jackson RN RN Sandie Jha RN RN ea Wadley, Terrence, MD MD tw4 Corrections: (The following items were deleted from the chart) 07:10 04:45 General: Appears uncomfortable, Behavior is calm, cooperative, appropriate for ea age, ea
--- NOTE | 2020-01-10 06:49 | EDPHYS ---
Physician Documentation [facility] Name: Shilpa Richardson Age: 74 yrs Sex: Female : 1945 Arrival Date: 01/10/2020 Time: 04:19 Bed 4 Private MD: ED Physician José Manuel Marie HPI: 01/09 04:38 This 74 yrs old Female presents to ER via EMS with complaints of Altered tw4 Mental Status. 04:38 The patient presents with decreased mental status, decreased responsiveness. Onset: The tw4 symptoms/episode began/occurred today. Possible causes: unknown. Associated signs and symptoms: The patient has no apparent associated signs or symptoms. Patient's baseline: Neuro: alert but confused, Motor: no deficits, Ambulation: walks with assist only, Speech: normal. The patient has not experienced similar symptoms in the past. Historical: - Allergies: 04:35 adhesive tape; sg 04:35 Codeine; sg 04:35 Diphenhydramine; sg 04:35 Erythromycin; sg 04:35 PENICILLINS; sg 04:35 Tape; sg - PMHx: 04:35 Alcoholism; Anxiety; Carotid blockage; Chronic pain; COPD; Depression; Hypertension; sg - Immunization history:: Adult Immunizations unknown. - Social history:: Smoking status: Patient denies any tobacco usage or history of. ROS: 04:38 Constitutional: Negative for fever, chills, and weight loss, Eyes: Negative for injury, tw4 pain, redness, and discharge, Cardiovascular: Negative for chest pain, palpitations, and edema, Respiratory: Negative for shortness of breath, cough, wheezing, and pleuritic chest pain, Abdomen/GI: Negative for abdominal pain, nausea, vomiting, diarrhea, and constipation, Back: Negative for injury and pain. 04:38 Neuro: Positive for syncope, weakness. Exam: 04:38 Chest/axilla: Normal chest wall appearance and motion. Nontender with no deformity. tw4 No lesions are appreciated. Cardiovascular: Regular rate and rhythm with a normal S1 and S2. No gallops, murmurs, or rubs. Normal PMI, no JVD. No pulse deficits. Respiratory: Lungs have equal breath sounds bilaterally, clear to auscultation and percussion. No rales, rhonchi or wheezes noted. No increased work of breathing, no retractions or nasal flaring. Abdomen/GI: Soft, non-tender, with normal bowel sounds. No distension or tympany. No guarding or rebound. No evidence of tenderness throughout. MS/ Extremity: Pulses equal, no cyanosis. Neurovascular intact. Full, normal range of motion. Neuro: Awake and alert, GCS 15, oriented to person, place, time, and situation. Cranial nerves II-XII grossly intact. Motor strength 5/5 in all extremities. Sensory grossly intact. Cerebellar exam normal. Normal gait. 04:38 Constitutional: The patient appears frail, listless, obviously ill. Vital Signs: 04:44 BP 92 / 50; Pulse 69; Resp 18; Temp 97.2; Pulse Ox 92% on R/A; Weight 39.92 kg; Height ea 4 ft. 11 in. (149.86 cm); 06:50 BP 104 / 61; Pulse 61; Resp 18; Pulse Ox 100% on NC; ea 08:30 BP 112 / 50; Pulse 68; Resp 16; Pulse Ox 99% on R/A; hb 04:44 Body Mass Index 17.77 (39.92 kg, 149.86 cm) ea Procedures: 05:32 Peripheral line: by aseptic technique a peripheral line was placed in the right tw4 external jugular vein. 08:50 Peripheral line: by aseptic technique a peripheral line was placed in the left external jr8 jugular vein. MDM: 04:28 Patient medically screened. tw4 06:45 Differential Diagnosis: CVA, electrolyte abnormality, pneumonia, sepsis. Data reviewed: tw4 vital signs, nurses notes, lab test result(s), cardiac enzymes, CBC, hepatic panel, EKG. Data interpreted: Pulse oximetry: Interpretation: normal. Test interpretation: by ED physician or midlevel provider: ECG. Counseling: I had a detailed discussion with the patient and/or guardian regarding: the historical points, exam findings, and any diagnostic results supporting the discharge/admit diagnosis, lab results, radiology results, the need for further work-up and treatment in the hospital. Physician consultation: Rasmhi Walter MD regarding admission, to the telemetry unit. patient's condition, need to come to ED to see patient, and will see patient in ED. 06:48 Physician consultation: was contacted at 06:45. tw4 01/09 04:29 Order name: Basic Metabolic Panel; Complete Time: 05:33 01/09 05:34 Interpretation: Normal except: NA 129; GFR 36; CRE 1.44; CL 95; CA 8.2. 01/09 04:29 Order name: CBC with Diff; Complete Time: 05:33 01/09 05:34 Interpretation: Normal except: RBC 3.61; HGB 11.2; HCT 33.3; PLT 546; MPV 6.6. 01/09 04:29 Order name: Ckmb; Complete Time: 05:33 05 05:34 Interpretation: Within normal limits: CKMB 1.2. 01/09 04:29 Order name: CPK; Complete Time: 05:33 01/09 05:34 Interpretation: Within normal limits: CPK 50. 01/09 04:29 Order name: Hepatic Function; Complete Time: 05:33 01/09 05:34 Interpretation: Normal except: ALK 144; GLOB 3.6; A/G 1.0. 01/09 04:29 Order name: Lipase; Complete Time: 05:33 01/09 05:35 Interpretation: Within normal limits: LIP 214. 01/09 04:29 Order name: Magnesium; Complete Time: 05:33 01/09 05:35 Interpretation: MG 1.8. 01/09 04:29 Order name: Protime (+inr); Complete Time: 05:33 01/09 04:29 Order name: Ptt, Activated; Complete Time: 05:33 01/09 05:34 Interpretation: Within normal limits: PTT 37.9. 01/09 04:29 Order name: Troponin (emerg Dept Use Only); Complete Time: 05:33 01/09 04:35 Order name: Alcohol Level; Complete Time: 05:33 01/09 05:34 Interpretation: Abnormal: ETOH 232. 01/09 07:51 Order name: CBC with Automated Diff EDMS 01/09 07:51 Order name: CBC with Automated Diff EDMS 01/09 07:52 Order name: Comprehensive Metabolic Panel EDMS 01/09 07:52 Order name: Comprehensive Metabolic Panel EDMS 01/09 07:52 Order name: Lipid Profile EDMS 01/09 07:52 Order name: Lipid Profile EDMS 01/09 07:52 Order name: Magnesium EDMS 01/09 07:52 Order name: Magnesium EDMS 01/09 07:52 Order name: Phosphorus EDMS 01/09 07:52 Order name: Phosphorus EDMS 01/09 07:52 Order name: Protime (+INR) EDMS 01/09 07:52 Order name: Protime (+INR) EDMS 01/09 07:52 Order name: Protime (+INR) EDMS 01/09 07:52 Order name: Protime (+INR) EDMS 01/09 07:52 Order name: Protime (+INR) EDMS 01/09 07:52 Order name: Protime (+INR) EDMS 01/09 07:52 Order name: PTT, Activated Partial Thromb EDMS 01/09 07:52 Order name: PTT, Activated Partial Thromb EDMS 01/09 07:52 Order name: PTT, Activated Partial Thromb EDMS 01/09 04:29 Order name: CT Head C Spine tw4 01/09 04:29 Order name: EKG; Complete Time: 04:30 01/09 04:29 Order name: Cardiac monitoring; Complete Time: 07:10 01/09 04:29 Order name: EKG - Nurse/Tech; Complete Time: 07:10 01/09 04:29 Order name: IV Saline Lock; Complete Time: 07:10 01/09 04:29 Order name: Labs collected and sent; Complete Time: 07:10 01/09 04:29 Order name: NPO; Complete Time: 07:10 01/09 04:29 Order name: O2 Per Protocol; Complete Time: 07:10 01/09 04:29 Order name: O2 Sat Monitoring; Complete Time: 07:10 4 01/09 07:51 Order name: Physical Therapy Consult EDMS 01/09 07:51 Order name: Speech Therapy Consult EDMS 01/09 07:51 Order name: Heart Healthy EDMS 01/09 07:51 Order name: Echo with Doppler EDMS 01/09 07:51 Order name: EKG Electrocardiogram EDMS 01/09 07:52 Order name: PTT, Activated Partial Thromb EDMS 01/09 07:52 Order name: PTT, Activated Partial Thromb EDMS 01/09 07:52 Order name: PTT, Activated Partial Thromb EDMS 01/09 07:52 Order name: Stroke Protocol EDSC 01/09 07:53 Order name: Chest Pa And Lat (2 Views) EDSC 01/09 08:40 Order name: RAD [facility] EC:57 Rate is 46 beats/min. Rhythm is regular. QRS [place] is Normal. ND interval is normal. QRS tw4 interval is normal. QT interval is normal. No Q waves. T waves are Normal. No ST changes noted. Clinical impression: Sinus bradycardia. Interpreted by me. Reviewed by me. Administered Medications: No medications were administered Disposition: 17:13 Co-signature as Attending Physician, José Manule Marie MD I agree with the assessment and tw4 plan of care. Disposition: 01/10/20 06:48 Hospitalization ordered by Rashmi Walter for Inpatient Admission. Preliminary diagnosis are Syncope and collapse, Alcohol abuse with intoxication, unspecified, Bradycardia, unspecified. - Bed requested for Telemetry/MedSurg (Inpatient). - Status is Inpatient Admission. iw - Condition is Fair. - Problem is new. - Symptoms are unchanged. Signatures: Dispatcher [employer] [facility] Saul Castañeda, RN RN Irma Jimenez RN RN iw Enrico Fry PA PA jr8 Jackelin Laboy RN RN tl1 José Manuel Marie MD MD tw4 Corrections: (The following items were deleted from the chart) 08:16 06:48 Hospitalization Ordered by Rashmi Walter MD for Inpatient Admission. Preliminary tl1 diagnosis is Syncope and collapse; Alcohol abuse with intoxication, unspecified; Bradycardia, unspecified. Bed requested for Telemetry/MedSurg (Inpatient). Status is Inpatient Admission. Condition is Fair. Problem is new. Symptoms are unchanged. tw4 09:14 08:16 01/10/2020 06:48 Hospitalization Ordered by Rashmi Walter MD for Inpatient iw Admission. Preliminary diagnosis is Syncope and collapse; Alcohol abuse with intoxication, unspecified; Bradycardia, unspecified. Bed requested for Telemetry/MedSurg (Inpatient). Status is Inpatient Admission. Condition is Fair. Problem is new. Symptoms are unchanged. tl1
[2020-01-10] MEDS ORDERED: ACETAMINOPHEN 500 MG TAB PO PRN (07:41)
[2020-01-10] MEDS ORDERED: ONDANSETRON 4 MG/2 ML VIAL IV PRN (07:41)
--- NOTE | 2020-01-10 07:46 | P.HP ---
Certification for Inpatient Patient admitted to: Observation With expected LOS: <2 Midnights Patient will require the following post-hospital care: None Practitioner: I am a practitioner with admitting privileges, knowledge of patient current condition, hospital course, and medical plan of care. Services: Services provided to patient in accordance with Admission requirements found in Title 42 Section 412.3 of the Code of Federal Regulations Patient History Date of Service: 01/10/20 Reason for admission: Altered mental status; alcohol abuse; hyponatremia History of Present Illness: Patient is a 74yo who was admitted to the hospital with AMS. Patient was found on the floor unresponsive. Patient had apparently been drinking quite a bit. She was admitted to our hospital for work up for possible syncope and possible stroke. Patient is a poor historian. Patient is able to remember how old she is, and she also knows her date of . But she doesn't really make conversation and she falls asleep readily. Reviewing her medical history, she does also have a history of seizures. She will be admitted for further evaluation. Allergies adhesive tape Allergy (Verified 11/28/18 21:48) blisters codeine Allergy (Verified 11/28/18 21:48) Itching diphenhydramine [From Benadryl] Allergy (Verified 11/28/18 21:48) Itching Penicillins Allergy (Verified 11/28/18 21:48) Anaphylaxis Erythromycin Allergy (Severe, Uncoded 11/28/18 21:48) Nausea/Vomiting Home Medications: Ipratropium/Albuterol Sulfate [Combivent Respimat 20-100 Mcg] 1 puff IH QID PRN 12/08/18 Simvastatin 20 tab PO DAILY 12/08/18 Omeprazole [Prilosec] 40 mg PO DAILY 12/10/18 Tiotropium Br/Olodaterol HCl [Stiolto Respimat Inhal [place]] 2 puff IN DAILY 12/10/18 Amitriptyline HCl 50 mg PO DAILY 07/22/19 Bimatoprost [Lumigan Opthalmic Drops*] 1 drop EACH EYE DAILY 07/22/19 Cyclosporine [Restasis] 1 drop EACH EYE BID 07/22/19 Diclofenac Na [Voltaren D.r*] 75 mg PO BID 07/22/19 Duloxetine HCl [Cymbalta] 30 mg PO DAILY 07/22/19 Metoprolol Tartrate [Lopressor*] 50 mg PO BID 07/22/19 clonazePAM [Clonazepam] 0.5 mg PO TID 07/22/19 Albuterol Inhaler [Ventolin Inhaler*] 2 puff IH Q6H PRN #1 hfa.aer.ad 07/25/19 Folic Acid 1 mg PO DAILY #30 tablet 07/25/19 Thiamine HCl [Vitamin B-1*] 100 mg PO DAILY #30 tablet 07/25/19 levETIRAcetam [Keppra*] 500 mg PO BID #30 tab 07/25/19 - Past Medical/Surgical History Diabetic: No -: COPD -: HTN -: Osteoporosis -: Depression with anxiety -: Carotid arterial disease -: Macular Degenartion -: Hyperlipidemia -: Cataracts -: Cataract sx Rt eye -: Carotid enterectomy -: Cholecystectomy -: C-sections x3 -: Tonsillectomy Psychosocial/ Personal History: She is , she has 2 children, she lives with a sister. She does not work. - Family History Father Medical History: Heart disease, Lung disease Mother Medical History: Stroke Notes: TIA's - Social History Alcohol use: No CD- Drugs: No Caffeine use: Yes Review of Systems 10-point ROS is otherwise unremarkable Physical Examination - Vital Signs Temperature: 98 F Blood Pressure: 150/90 Pulse: 88 Respirations: 18 Pulse Ox (%): 96 - Physical Exam General: Confused HEENT: Atraumatic, PERRLA, Mucous membr. moist/pink, EOMI, Sclerae nonicteric Neck: Supple, 2+ carotid pulse no bruit, No LAD, Without JVD or thyroid abnormality Respiratory: Clear to auscultation bilaterally, Normal air movement Cardiovascular: Regular rate/rhythm, Normal S1 S2, Systolic murmur Gastrointestinal: Normal bowel sounds, Soft and benign, Non-distended, No tenderness Musculoskeletal: No clubbing, No swelling, No tenderness Integumentary: No rashes Neurological: Sensation intact, Cranial nerves 3-12 intact, Normal affect, Abnormal gait, Abnormal speech, Abnormal strength Lymphatics: No axilla or inguinal lymphadenopathy - Studies Laboratory Data (last 24 hrs) 01/10/20 04:40: PT 10.9, INR 0.92, APTT 37.9 H 01/10/20 04:40: WBC 9.4, Hgb 11.2 L, Hct 33.3 L, Plt Count 546 H 01/10/20 04:40: Sodium 129 L, Potassium 4.9, BUN 15, Creatinine 1.44 H, Glucose 84, Magnesium 1.8, Total Bilirubin 0.3, AST 27, ALT 20, Alkaline Phosphatase 144 H, Lipase 214 Assessment & Plan - Problems (Diagnosis) (1) Acute encephalopathy Current Visit: No Status: Acute (2) Alcohol ingestion Onset Date: 07/08/16 Current Visit: No Status: Acute (3) COPD exacerbation Onset Date: 06/03/17 Current Visit: No Status: Acute (4) Fall Current Visit: No Status: Acute Qualifiers: (5) Seizure Current Visit: No Status: Acute (6) COPD (chronic obstructive pulmonary disease) Onset Date: 06/03/17 Current Visit: No Status: Chronic Qualifiers: (7) Hyperlipidemia Onset Date: 06/03/17 Current Visit: No Status: Chronic Qualifiers: (8) Hypertension Onset Date: 06/03/17 Current Visit: No Status: Chronic Qualifiers: - Plan 1. MRI of the brain 2. Echocardiogram and carotid Doppler 3. Anti-platelet therapy and statin therapy 4. Neurology consultation if symptoms do not improve 5. Physical therapy/occupational therapy/speech therapy evaluation 6. Seizure precautions and DT prevention 7. DVT prophylaxis Discharge Plan: Home Plan to discharge in: 48 Hours - Advance Directives Does patient have a Living Will: No Does patient have a Durable POA for Healthcare: No - Code Status/Comfort Care Code Status Assessed: Yes Code Status: Full Code Critical Care: No Time Spent Managing PTS Care (In Minutes): 45
--- NOTE | 2020-01-10 08:39 | RAD REPORT ---
EXAM DESCRIPTION: RAD - Chest Single View - 01/10/2020 8:14 am CLINICAL HISTORY: Stroke, shortness of breath, Stroke protocol chest film COMPARISON: Portable July 2019 TECHNIQUE: AP portable chest image was obtained 01/10/2020 8:14 am . FINDINGS: Lung volumes are low. Scarring changes are present in the right lung parenchyma. Stranding at the right base is favored to be atelectasis over infiltrate. Small left pleural effusion is prese nt. Linear atelectasis or scarring present in the mid left lung field. There are patchy mid interstit ial and alveolar opacities in the lower left lung field. This is partially atelectasis but left lung base infiltrate suspected. This could be an aspiration pneumonia given the stroke symptoms. Infectiou s pneumonia possible as well. Heart and vasculature are normal. No pneumothorax. No acute bony abnormality seen. No acute aortic f indings suspected. IMPRESSION: Left base infectious or aspiration pneumonia changes along with bilateral lung base atel ectasis.
[2020-01-10] MEDS ORDERED: DIAZEPAM 10 MG/2 ML INJ SYRINGE IV ONE ×2 (09:18→09:22)
[2020-01-10] MEDS ORDERED: DIAZEPAM 10 MG/2 ML INJ SYRINGE ONE (09:38)
--- NOTE | 2020-01-10 10:17 | RAD REPORT ---
EXAM DESCRIPTION: MRI - Brain Wo Cont - 01/10/2020 9:58 am CLINICAL HISTORY: Altered mental status/ status post fall COMPARISON: Brain Wo Cont dated 07/24/2019; Head C Spine Mpr Wo Con dated 01/10/2020 TECHNIQUE: Sagittal T1-weighted images were obtained along with axial PD, heavily T2-weighted and T2 -FLAIR images. Axial DWI and ADC mapping sequences were also obtained along with coronal heavily T2-w eighted images. FINDINGS: No intracranial hemorrhage is present. Diffusion-weighted imaging shows a punctate focus o f hyperintense signal in the midbrain just right of midline. A correlate on the ADC mapping study is only questionable. Patient has a baseline of [id number] atrophy and chronic ischemic change. Ch ronic ischemic changes present in the brainstem. There is no edema or shift of midline structures. No extra-axial fluid collections. Metz-matter/white matter junction is preserved. Signal voids are seen as a normal finding in the major intracranial vessels. Ventricles are in proportion to the volume lo ss. No globe or orbital content acute finding. No sella or supra sella abnormality. Mastoid air cells and paranasal sinuses are clear. IMPRESSION: Suspected punctate acute infarction in the brainstem. This small focus is in the midbrai n just right of midline at the base of the cerebral peduncle. No additional acute intracranial finding. Patient has mild to moderate underlying atrophy and chronic ischemic change.
--- NOTE | 2020-01-10 10:23 | RAD REPORT ---
EXAM DESCRIPTION: CT - [id number] - 01/10/2020 6:39 am CLINICAL HISTORY: Ams , found on floor COMPARISON: CT head 07/22/2019 CT cervical spine 04/03/2018 TECHNIQUE: Head/brain and cervical spine axial images acquired without contrast. Coronal and sagitta l reformats created. Exam performed according to departmental dose-optimization program which include s automated exposure control, adjustment of mA and/or kV according to patient size, and/or use of ite rative reconstruction technique. FINDINGS: Head/brain- No midline shift, mass effect, intracranial hemorrhage, or hydrocephalus. CSF spaces appear overall mildly enlarged likely representing age-appropriate cerebral volume loss. Paranasal sinuses and mastoid air cells clear. No skull fracture or significant skull lesion. Cervical spine- Osteopenia. No acute fracture or traumatic subluxation. Minimal grade 1 anterolisthesis of C2 on C3 again noted due to degenerative disease. Mild dextroscoliosis of cervical spine. Moderate, bilateral, uncovertebral and facet, degenerative joint changes throughout cervical spine. Moderate, atlantodental, degenerative joint changes. Marked disc height loss at C2/C3, C3/C4, C4/C5, and C5/C6 Transverse ligament of atlas calcification may represent CPPD deposition disease. No paraspinal hematoma. Thyroid right lobe hypodense nodule measuring 23 x 18 mm on axial images. IMPRESSION: 1. Head/brain- No CT evidence of acute intracranial abnormality or skull fracture. Mild cerebral white matter disease most likely represents chronic small vessel ischemia. 2. Cervical spine- No CT evidence of cervical spine injury. Marked cervical spine degenerative disease. Osteopenia. Thyroid right lobe hypodense nodule measuring 23 x 18 mm on axial images. Nonemergent elective US thyroid recommended to evaluate for thyroid neoplastic nodule. Electronically signed by: Vel Kirkland MD 01/10/2020 5:53 AM CDT Due to temporary technical issues with the PACS/Fluency reporting system, reports are being signed by the in house radiologist as a courtesy to ensure prompt reporting. The interpreting radiologist is f ully responsible for the content of the report.
[2020-01-10 10:37] VITALS: BMI 17.7
[2020-01-10] MEDS: NA CHLORIDE 0.9% 1,000 ML IV SCH (11:03)
[2020-01-10] MEDS: ASPIRIN EC 81 MG TAB PO SCH (11:04)
[2020-01-10] MEDS: ENOXAPARIN 40 MG/0.4 ML SQ SCH (11:04)
[2020-01-10] MEDS: CLOPIDOGREL 75 MG TABLET PO SCH (11:05)
[2020-01-10] MEDS ORDERED: chlordiazePOXIDE HCl 5 MG CAP PO SCH (12:00)
[2020-01-10] MEDS: levETIRAcetam 500 MG in NA CHLORIDE 0.9% 100 ML IV SCH ×3 (13:12→23:51)
[2020-01-10] MEDS ORDERED: clonazePAM 0.5 MG TAB PO PRN (14:49)
[2020-01-10] MEDS ORDERED: IPRATROPIUM IH PRN (14:49)
[2020-01-10] MEDS ORDERED: [UNRECOGNIZED DRUG - OTHER] IH PRN (14:49)
[2020-01-10] MEDS ORDERED: ALBUTEROL SULFATE IH PRN (14:49)
[2020-01-10] MEDS ORDERED: METOPROLOL TAR 50 MG TAB PO SCH (15:00)
[2020-01-10] MEDS ORDERED: IPRATROPIUM BROM 0.5MG/2.5ML IH PRN (15:17)
[2020-01-10] MEDS ORDERED: ALBUTEROL 2.5 MG/3 ML NEB SOL IH PRN (15:17)
--- NOTE | 2020-01-10 16:18 | EKG ---
Test Date: 2020-01-10 Test Time: 04:42:22 [employer]: LOPEZ MEASUREMENT RESULTS: Intervals: Rate: 46 UT: QRSD: 82 QT: 446 QTc: 390 Alexander: P: UT: QRS: 71 T: 75 INTERPRETIVE STATEMENTS: Atrial fibrillation with slow ventricular response with a competing junctional pacemaker Abnormal ECG Compared to ECG 07/21/2019 15:46:47 Sinus rhythm no longer present Left ventricular hypertrophy no longer present Early repolarization no longer present Electronically Signed On 01-10-20 16:16:51 CDT by Bill Velez
[2020-01-10] MEDS ORDERED: MAGNESIUM SULFATE 1 gm IVPB 1 GM/100 ML BAG IV ONE (17:00)
[2020-01-10] MEDS: chlordiazePOXIDE HCl 5 MG CAP PO SCH (17:49)
[2020-01-10] MEDS: NICOTINE 21 MG/PAT TD SCH (18:00)
[2020-01-10] MEDS ORDERED: ATORVASTATIN 40 MG TAB PO SCH (21:00)
[2020-01-10] MEDS: HOME MED 1 EA UNK (Cyclosporine [Restasis] 1 DROP) EACH EYE SCH (21:00)
[2020-01-10] MEDS: ATORVASTATIN 10 MG TAB PO SCH (21:46)
--- NOTE | 2020-01-10 23:53 | CON ---
Date of Consultation: 01/10/[address] Walter's service on 01/10/2020. I saw the patient on 01/10/2020. Reason For Consultation: Atrial fibrillation and new-onset CVA. History Of Present Illness: Ms. Richardson is a 74-year-old woman who has a history of alcoholism, an xiety, cerebrovascular disease, COPD, hypertension, and depression, came in with altered mental statu s, was found to have atrial fibrillation which is chronic, rate controlled. She also has an aspirati on pneumonia. MRI showed an acute infarction in the brainstem region along with some chronic ischemi c changes and atrophy. No cardiac symptoms reported. Denied chest pain, shortness of breath, nausea , vomiting, diaphoresis, PND, orthopnea, pedal edema, palpitations, or syncope. Past Medical History: As stated above. Allergies: SHE IS ALLERGIC TO CODEINE, PENICILLIN, BENADRYL, ERYTHROMYCIN, AND ADHESIVE TAPE. Review of Systems: Negative. Social History: Positive for alcohol and tobacco. Family History: Noncontributory. Medications: At home include inhalers, Cymbalta, metoprolol, Prilosec, Zocor, Keppra and clonazepam. Physical Examination: General: She was hypertensive at 189/93. She was in atrial fibrillation, rate of 87, afebrile. HEENT: Negative. Neck: Supple with no bruit on the right. She has a bruit on the left carotid. Chest: Clear. Cardiac: Atrial fibrillation. No murmurs, gallops, or rubs. Abdomen: Benign. Extremities: No clubbing, cyanosis, or edema. Diagnostic Data: Chest x-ray shows aspiration pneumonia on the left base. EKG showed atrial fibrill ation, rate of 87. MRI showed acute infarction in the brain stem. Creatinine is 1.44. Sodium was 1 29. Alcohol level was 232. Impression And Plan: Acute cerebrovascular accident, possibly secondary to her cardiovascular diseas e and/or atrial fibrillation. Her alcoholism presents a big problem as far as trying to anticoagulat e her, but I will discuss that further with Dr. Guevara and with Neurology. Speech therapy has been o rdered. I agree with aspirin and Plavix and Lovenox for now. She is also on Keppra, which she shoul d be on. We will continue her metoprolol, inhalers as well as her thiamine. Her other problems incl ude renal insufficiency that needs to be followed. She has a pneumonia for which she is on antibioti cs right now. Other issues include chronic obstructive pulmonary disease, hypertension, anxiety, and depression, seems to be stable at this point. Her cerebrovascular disease has been cared for. I be lieve she has had an endarterectomy in the past at [facility]. Her last carotid showed 50% ramon nosis. We will keep following that as an outpatient if the patient comes to the clinic. For now, we will continue to follow her. No plan as far as atrial fibrillation is concerned as far as cardiover yanet. She has had chronic atrial fibrillation for many years. ISATU/JAMILA Voice ID: [id number] Report ID: [id number]
[2020-01-11] MEDS: chlordiazePOXIDE HCl 5 MG CAP PO SCH ×4 (00:03→17:13)
[2020-01-11] MEDS: NA CHLORIDE 0.9% 1,000 ML IV SCH ×3 (02:58→17:16)
[2020-01-11 04:24] LABS: Absolute Lymphocytes (CBC) 1.1 K/uL (0.7-4.9); Basophils % 0.6 % (0-1.3); Lymphocytes % 13.9 % (15.3-44.8); MPV 6.7 fL (7.6-11.3); RBC Red Blood Cell Count 3.88 M/uL (3.86-4.86)
[2020-01-11 04:47] LABS: ALT/SGPT 20 U/L (12-78); AST/SGOT 23 U/L (15-37); Albumin 3.7 g/dL (3.4-5.0); Alkaline Phosphatase 164 U/L (45-117); BUN Blood Urea Nitrogen 10 mg/dL (7-18); Bicarbonate 27 mmol/L (21-32); Bilirubin Total 0.7 mg/dL (0.2-1.0); Glucose Level 78 mg/dL (74-106); HDL Cholesterol 82 mg/dL (40-60); LDL Cholesterol, Calculated 89 (<130); Magnesium 1.9 mg/dL (1.8-2.4); Phosphorus 2.9 mg/dL (2.5-4.9); Potassium 3.3 mmol/L (3.5-5.1); Protein, Total 7.2 g/dL (6.4-8.2); Sodium Level 136 mmol/L (136-145)
[2020-01-11 04:48] LABS: Protime INR 0.97
[2020-01-11] MEDS ORDERED: POTASSIUM 25 MEQ EFFERV TAB PO ONE (04:56)
[2020-01-11] MEDS: PANTOPRAZOLE 40MG TABLET PO SCH ×2 (06:33→09:23)
--- NOTE | 2020-01-11 08:06 | ECHO ---
HEIGHT: 4 ft 11 in WEIGHT: 88 lb 0 oz DATE OF STUDY: 01/10/[address]: Rashmi Walter MD 2-DIMENSIONAL: YES M.MODE: YES DOPPLER: YES COLOR FLOW: YES TDS: YES PORTABLE: NO DEFINITY: NO BUBBLE STUDY: NO DIAGNOSIS: STROKE CARDIAC HISTORY: CATHERIZATION: NO SURGERY: NO PROSTHETIC VALVE: NO PACEMAKER: NO MEASUREMENTS (cm) DIASTOLIC (NORMALS) SYSTOLIC (NORMALS) IVSd 0.8 (0.6-1.2) LA Diam 3.1 (1.9-4.0) LVEF 75% LVIDd 3.7 (3.5-5.7) LVIDs 2.1 (2.0-3.5) %FS 43% LVPWd 0.8 (0.6-1.2) Ao Diam 2.6 (2.0-3.7) 2 DIMENSIONAL ASSESSMENT: RIGHT ATRIUM: NORMAL LEFT ATRIUM: NORMAL RIGHT VENTRICLE: NORMAL LEFT VENTRICLE: NORMAL TRICUSPID VALVE: NORMAL MITRAL VALVE: NORMAL PULMONIC VALVE: NORMAL AORTIC VALVE: NORMAL PERICARDIAL EFFUSION: NONE AORTIC ROOT: NORMAL LEFT VENTRICULAR WALL MOTION: NORMAL DOPPLER/COLOR FLOW: NORMAL COMMENTS: NORMAL 2D ECHOCARDIOGRAM WITH DOPPLER. NO WALL MOTION ABNORMALITY. NO EFFUSION. TECHNOLOGIST: Radha RIVERS
--- NOTE | 2020-01-11 08:41 | P.PN ---
Subjective Date of Service: 01/11/20 Patient appears to have had a brainstem infarct. Neurology consultation and rehab consultation. Continue with physical therapy and speech therapy and occupational therapy. Patient is more awake and alert today. Will monitor closely as stroke progresses and patient may have worsening symptoms with surrounding edema. Review of Systems 10-point ROS is otherwise unremarkable Physical Examination - Vital Signs Temperature: 97.4 F Blood Pressure: 158/82 Pulse: 93 Respirations: 15 Pulse Ox (%): 98 - Physical Exam General: Alert, In no apparent distress, Oriented x3, Cachectic Respiratory: Clear to auscultation bilaterally, Normal air movement Cardiovascular: Regular rate/rhythm, Normal S1 S2, No murmurs Gastrointestinal: Normal bowel sounds, Soft and benign, Non-distended, No tenderness Musculoskeletal: No clubbing, No swelling, No tenderness Integumentary: No rashes Neurological: Normal speech, Normal tone, Sensation intact, Cranial nerves 3-12 intact, Abnormal strength (4/5) Lymphatics: No axilla or inguinal lymphadenopathy - Studies Medications List Reviewed: Yes Assessment & Plan - Problems (Diagnosis) (1) Acute encephalopathy Current Visit: No Status: Acute (2) Alcohol ingestion Onset Date: 07/08/16 Current Visit: No Status: Acute (3) COPD exacerbation Onset Date: 06/03/17 Current Visit: No Status: Acute (4) Fall Current Visit: No Status: Acute Qualifiers: (5) Seizure Current Visit: No Status: Acute (6) COPD (chronic obstructive pulmonary disease) Onset Date: 06/03/17 Current Visit: No Status: Chronic Qualifiers: (7) Hyperlipidemia Onset Date: 06/03/17 Current Visit: No Status: Chronic Qualifiers: (8) Hypertension Onset Date: 06/03/17 Current Visit: No Status: Chronic Qualifiers: (9) Acute brainstem infarction Current Visit: Yes Status: Acute - Plan Continue with current plan of care as mentioned below 1. MRI of the brain revealed brainstem infarct 2. Echocardiogram and carotid Doppler are pending 3. Anti-platelet therapy and statin therapy 4. Neurology consultation and rehab evaluation 5. Physical therapy/occupational therapy/speech therapy evaluation appreciated 6. Seizure precautions and DT prevention; patient has history of seizures and continue anti epileptics 7. DVT prophylaxis Discharge Plan: Other (Rehabilitation) Plan to discharge in: 48 Hours - Advance Directives Does patient have a Living Will: No Does patient have a Durable POA for Healthcare: No - Code Status/Comfort Care Code Status: Full Code Critical Care: No Time Spent Managing PTS Care (In Minutes): 45
[2020-01-11] MEDS ORDERED: HOME MED [BIMATOPROST OPHTH DROPS/2.5 ML BTL] OPTH SCH (09:00)
[2020-01-11] MEDS ORDERED: SIMVASTATIN PO SCH (09:00)
[2020-01-11] MEDS: HOME MED 1 EA UNK (Cyclosporine [Restasis] 1 DROP) EACH EYE SCH ×2 (09:00→20:55)
[2020-01-11] MEDS ORDERED: HOME MED 1 EA UNK (Omeprazole [Prilosec] 40 MG) PO SCH (09:00)
[2020-01-11] MEDS: levETIRAcetam 500 MG in NA CHLORIDE 0.9% 100 ML IV SCH (09:00)
[2020-01-11] MEDS: NICOTINE 21 MG/PAT TD SCH (09:00)
[2020-01-11] MEDS: ASPIRIN EC 81 MG TAB PO SCH (09:22)
[2020-01-11] MEDS: AMLODIPINE 5 MG TAB PO SCH ×2 (09:23→20:54)
[2020-01-11] MEDS: FOLIC ACID 1 MG TABLET PO SCH (09:23)
[2020-01-11] MEDS: AMITRIPTYLINE 50 MG TAB PO SCH (09:23)
[2020-01-11] MEDS: CLOPIDOGREL 75 MG TABLET PO SCH (09:23)
[2020-01-11] MEDS: DULOXETINE 30 MG CAP PO SCH (09:23)
[2020-01-11] MEDS: THIAMINE HCL 100 MG TABLET PO SCH (09:23)
[2020-01-11] MEDS: ENOXAPARIN 40 MG/0.4 ML SQ SCH (09:24)
--- NOTE | 2020-01-11 11:56 | RAD REPORT ---
EXAM DESCRIPTION: USCarotid Artery Bilateral01/11/2020 7:27 am CLINICAL HISTORY: Acute CVA COMPARISON: None FINDINGS: The velocity of the right internal carotid artery equals 117 cm/sec. The right ICA/CCA rat io .4 The velocity of the left internal carotid artery equals 341 cm/sec. The left ICA/CCA ratio 3.6 Moderate calcified plaque right common carotid artery. Mild plaque right internal carotid artery. Moderate plaque left external carotid artery. Proximal left common internal carotid arteries not well visualized The vertebral arteries demonstrate antegrade flow IMPRESSION: Proximal left internal carotid artery is not well visualized. However the velocity is si gnificantly elevated which indicates severe stenosis is probable. Further evaluation with MRA may be helpful Moderate plaque right common carotid artery NASCET criteria used. Mild 0-49% stenosis Moderate 50-69% stenosis Severe 70-99% stenosis
--- NOTE | 2020-01-11 12:56 | RAD REPORT ---
EXAM DESCRIPTION: RAD - Barium Swallow Modified - 01/11/2020 12:30 pm CLINICAL HISTORY: asp. pneumonia COMPARISON: None. TECHNIQUE: The patient was given liquid, semi-solid and solid forms of barium. Lateral view fluorosc opic imaging was performed in conjunction with speech pathology service. FINDINGS: Cineloop acquisitions: 26 Fluoro time: 3:48 MIN Laryngeal penetration: cleared with cup sip and straw sip x 1 Pharyngeal residue: mild Vallecular, mild Pyriform, mild Posterior wall Increased oral preparation with solid. Swallow is timely for age. There is reduced base of tongue r etraction and reduced laryngeal elevation and protraction. There was pentration of thin liquid that cleared. no aspiration was viewed during this exam. Mild residue in the valleculae, pyriforms and po sterior pharyngeal wall is reduced with a re-swallow. The barium tablet remained in the valleculae m omentarily and was swallowed with additional liquid. There was moderate to significant esophageal st asis. IMPRESSION: Modified barium swallow as summarized above and fully detailed on speech pathology repor goyo
[2020-01-11] MEDS: ENSURE ENLIVE 237 ML CAN PO SCH ×2 (14:00→20:55)
--- NOTE | 2020-01-11 16:56 | PN ---
Date of Progress Note: 01/11/2020 Ms. Richardson was admitted with acute CVA in her brainstem. She has been on seizure precautions sinc e. She has a history of CVD. She had 50% to 70% left carotid stenosis. She has had a right carotid artery repaired in the past. She has a history of COPD, hypertension, depression. She came in with hyponatremia, elevated creatinine, acute CVA in the brainstem. She has a history of alcohol abuse. Overnight, she is back to normal. Her speech is back to normal. She has not ambulated yet. I think she needs to ambulate to see what her balance is like. She is very hesitant to go to the rehab or s magan in the hospital any more than she needs to. Ms. Richardson have chronic atrial fibrillation with a controlled ventricular response that is asymptomatic, although I think with her stroke, I think she should be on anticoagulants, preferably Eliquis. I would keep an eye on her carotid in the office a fter followup. From my standpoint, she can go home and I will see her in the office in the next week or 2. ISATU/JAMILA Voice ID: [id number] Report ID: [id number]
[2020-01-11] MEDS: levETIRAcetam 500 MG TAB PO SCH (20:54)
[2020-01-11] MEDS: ATORVASTATIN 10 MG TAB PO SCH (20:54)
[2020-01-12] MEDS: chlordiazePOXIDE HCl 5 MG CAP PO SCH ×4 (00:54→11:31)
[2020-01-12 05:22] LABS: BUN Blood Urea Nitrogen 6 mg/dL (7-18); Bicarbonate 27 mmol/L (21-32); Glucose Level 97 mg/dL (74-106); Potassium 3.5 mmol/L (3.5-5.1); Sodium Level 136 mmol/L (136-145)
[2020-01-12 05:39] LABS: Protime INR 0.94
[2020-01-12] MEDS ORDERED: POTASSIUM CL SA 10 MEQ TAB PO ONE (05:43)
--- NOTE | 2020-01-12 08:50 | P.DS ---
Discharge Date: 01/12/20 Disposition: ROUTINE DISCHARGE Discharge Condition: GOOD Reason for Admission: Altered mental status; alcohol abuse; hyponatremia Consultations: Neurology and Cardiology - Problems (1) Acute encephalopathy Current Visit: No Status: Acute (2) Alcohol ingestion Onset Date: 07/08/16 Current Visit: No Status: Acute (3) COPD exacerbation Onset Date: 06/03/17 Current Visit: No Status: Acute (4) Fall Current Visit: No Status: Acute Qualifiers: (5) Seizure Current Visit: No Status: Acute (6) COPD (chronic obstructive pulmonary disease) Onset Date: 06/03/17 Current Visit: No Status: Chronic Qualifiers: (7) Hyperlipidemia Onset Date: 06/03/17 Current Visit: No Status: Chronic Qualifiers: (8) Hypertension Onset Date: 06/03/17 Current Visit: No Status: Chronic Qualifiers: (9) Acute brainstem infarction Current Visit: Yes Status: Acute Brief History of Present Illness: Patient is a 74yo who was admitted to the hospital with AMS. Patient was found on the floor unresponsive. Patient had apparently been drinking quite a bit. She was admitted to our hospital for work up for possible syncope and possible stroke. Patient is a poor historian. Patient is able to remember how old she is, and she also knows her date of . But she doesn't really make conversation and she falls asleep readily. Reviewing her medical history, she does also have a history of seizures. She will be admitted for further evaluation. Hospital Course: Patient was found have a brainstem infarct. We will go ahead and arrange for physical therapy, occupational therapy, and speech therapy. Patient will also need to follow with Cardiology and Neurology. Patient ultrasound of the carotid revealed carotid artery stenosis of 70% on the left which will need to be monito red at discharge. Patient will also need to see GI for EGD for possible esophageal stasis. Patient will continue with anti coagulation and medication for rate control per Cardiology. Continue anti-platelet therapy. At this time, patient is stable for discharge with close outpatient follow-up: 4. Patient is to return to the ER if symptoms worsen. Patient also needs to refrain from alcohol use going forward and we of counseled her regarding this as well. Vital Signs/Physical Exam: Temp Pulse Resp BP Pulse Ox 97.4 F 93 H 15 158/82 H 98 01/12/20 08:47 01/12/20 08:47 01/12/20 08:47 01/12/20 08:47 01/12/20 08:47 General: Alert, In no apparent distress, Oriented x3 Laboratory Data at Discharge: WBC 7.9 K/uL (4.3-10.9) D 01/11/20 04:02 Hgb 12.2 g/dL (12.0-15.0) 01/11/20 04:02 Hct 36.0 % (36.0-45.0) 01/11/20 04:02 Plt Count 459 K/uL (152-406) H 01/11/20 04:02 PT 11.1 SECONDS (9.5-12.5) 01/12/20 04:31 INR 0.94 01/12/20 04:31 APTT 37.2 SECONDS (24.3-36.9) H 01/12/20 04:31 Sodium 136 mmol/L (136-145) 01/12/20 04:31 Potassium 3.5 mmol/L (3.5-5.1) 01/12/20 04:31 BUN 6 mg/dL (7-18) L 01/12/20 04:31 Creatinine 0.54 mg/dL (0.55-1.3) L 01/12/20 04:31 Glucose 97 mg/dL (74-106) 01/12/20 04:31 Phosphorus 2.9 mg/dL (2.5-4.9) 01/11/20 04:02 Magnesium 1.9 mg/dL (1.8-2.4) 01/11/20 04:02 Total Bilirubin 0.7 mg/dL (0.2-1.0) 01/11/20 04:02 AST 23 U/L (15-37) 01/11/20 04:02 ALT 20 U/L (12-78) 01/11/20 04:02 Alkaline Phosphatase 164 U/L (45-117) H 01/11/20 04:02 Triglycerides 75 mg/dL (<150) 01/11/20 04:02 Cholesterol 186 mg/dL (<200) 01/11/20 04:02 HDL Cholesterol 82 mg/dL (40-60) H 01/11/20 04:02 Cholesterol/HDL Ratio 2.27 05/07/20 04:02 Lipase 214 U/L (73-393) 01/10/20 04:40 Home Medications: Ipratropium/Albuterol Sulfate [Combivent Respimat 20-100 Mcg] 1 puff IH QID PRN 12/08/18 Simvastatin 20 tab PO DAILY 12/08/18 Omeprazole [Prilosec] 40 mg PO DAILY 12/10/18 Amitriptyline HCl 50 mg PO DAILY 07/22/19 Bimatoprost [Lumigan Opthalmic Drops*] 1 drop EACH EYE DAILY 07/22/19 Cyclosporine [Restasis] 1 drop EACH EYE BID 07/22/19 Duloxetine HCl [Cymbalta] 30 mg PO DAILY 07/22/19 Metoprolol Tartrate [Lopressor*] 50 mg PO BID 07/22/19 clonazePAM [Clonazepam] 0.5 mg PO TID 07/22/19 Folic Acid 1 mg PO DAILY #30 tablet 07/25/19 Thiamine HCl [Vitamin B-1*] 100 mg PO DAILY #30 tablet 07/25/19 levETIRAcetam [Keppra*] 500 mg PO BID #30 tab 07/25/19 Amlodipine [Norvasc*] 10 mg PO DAILY #30 tab 01/12/20 Apixaban [Eliquis] 2.5 mg PO BID #60 tablet 01/12/20 Aspirin [Aspirin EC 81 MG] 162 mg PO DAILY #60 tablet. 01/12/20 chlordiazePOXIDE HCl [Librium*] 5 mg PO Q8HR #40 cap 01/12/20 levETIRAcetam [Keppra*] 500 mg PO BID #60 tab 01/12/20 New Medications: Aspirin [Aspirin EC 81 MG] 162 mg PO DAILY #60 tablet. Apixaban [Eliquis] 2.5 mg PO BID #60 tablet levETIRAcetam [Keppra*] 500 mg PO BID #60 tab chlordiazePOXIDE HCl [Librium*] 5 mg PO Q8HR #40 cap Amlodipine [Norvasc*] 10 mg PO DAILY #30 tab Patient Discharge Instructions: OK TO DC IV AND DC HOME. FOLLOW-UP WITH PRIMARY CARE PROVIDER IN 1-2 WEEKS. Please give patient information for assistance with refraining from alcohol. FOLLOW-UP WITH CARDIOLOGY IN 1-2 WEEKS. Follow up with Neurology in 1-2 weeks. Follow-up with Gastroenterology for esophageal stasis; patient may need EGD. CALL or TEXT DR. FANG AT [phone] IF ANY QUESTIONS REGARDING HOSPITAL STAY. PLEASE CALL THE FLOOR AT [phone] IF ANY MEDICATION OR NURSING QUESTIONS. RETURN TO THE ER IF. CALL or TEXT DR. FANG AT [phone] IF ANY QUESTIONS REGARDING HOSPITAL STAY. PLEASE CALL THE FLOOR AT [phone] IF ANY MEDICATION OR NURSING QUESTIONS. Speech therapy recommendations included a diet that includes mechanical soft foods (ground meats) and regular liquids. They also recommended following swallow precautions: sit upright at 90 degrees, take small bites/sips, eat/drink slowly, swallow twice, alternate liquids and solids, and sit up for 30-60 minutes after meals. Medications should be crushed in puree/pudding. ST is recommended 2 times per week to increase swallow safety/efficiency. Diet: AHA Activity: Fall precautions Time spent managing pt's care (in minutes): 40
[2020-01-12] MEDS: NICOTINE 21 MG/PAT TD SCH (09:00)
[2020-01-12] MEDS: HOME MED 1 EA UNK (Cyclosporine [Restasis] 1 DROP) EACH EYE SCH (09:00)
[2020-01-12] MEDS: ENSURE ENLIVE 237 ML CAN PO SCH ×2 (09:00→13:56)
[2020-01-12] MEDS: ENOXAPARIN 40 MG/0.4 ML SQ SCH (09:06)
[2020-01-12] MEDS: levETIRAcetam 500 MG TAB PO SCH (09:07)
[2020-01-12] MEDS: AMLODIPINE 5 MG TAB PO SCH (09:07)
[2020-01-12] MEDS: DULOXETINE 30 MG CAP PO SCH (09:07)
[2020-01-12] MEDS: CLOPIDOGREL 75 MG TABLET PO SCH (09:07)
[2020-01-12] MEDS: ASPIRIN EC 81 MG TAB PO SCH (09:08)
[2020-01-12] MEDS: THIAMINE HCL 100 MG TABLET PO SCH (09:08)
[2020-01-12] MEDS: FOLIC ACID 1 MG TABLET PO SCH (09:08)
[2020-01-12] MEDS: AMITRIPTYLINE 50 MG TAB PO SCH (09:08)
[2020-01-12 09:14] VITALS: O2SAT 98
[2020-01-12] MEDS: NA CHLORIDE 0.9% 1,000 ML IV SCH ×2 (13:20)
[2020-01-12 16:23] VITALS: BP 137/80; TEMP 99.1
== END 2020-01-12 17:07 | disposition home or self-care (01) | DRG 64 ==
LOC: ER 04:18 → ERHOLD 07:41 → 2ND 08:57 → OBSVTOIN 17:20
PROVIDERS: ADMIT Hospitalist; ATTEND Family Medicine
DX: I63.9 Cerebral infarction, unspecified (principal); J69.0 Pneumonitis due to inhalation of food and vomit; J44.1 Chronic obstructive pulmonary disease with (acute) exacerbation; J44.0 Chronic obstructive pulmonary disease with (acute) lower respiratory infection; G93.40 Encephalopathy, unspecified; I48.20 Chronic atrial fibrillation, unspecified; E87.1 Hypo-osmolality and hyponatremia; R64 Cachexia; Z68.1 Body mass index [BMI] 19.9 or less, adult; Z88.4 Allergy status to anesthetic agent; Z88.5 Allergy status to narcotic agent; Z88.0 Allergy status to penicillin; Z88.8 Allergy status to other drugs, medicaments and biological substances; Z91.048 Other nonmedicinal substance allergy status; Z79.899 Other long term (current) drug therapy; I10 Essential (primary) hypertension; E78.5 Hyperlipidemia, unspecified; Z90.49 Acquired absence of other specified parts of digestive tract; W18.30XA Fall on same level, unspecified, initial encounter; Z88.1 Allergy status to other antibiotic agents; N28.9 Disorder of kidney and ureter, unspecified; F41.9 Anxiety disorder, unspecified; F32.9 Major depressive disorder, single episode, unspecified; F10.20 Alcohol dependence, uncomplicated
CPT/HCPCS: 36415; 70450; 70551; 70553; 71045; 72125; 74230; 80048; 80053; 80061; 80076; 80320; 82550; 82553; 82947; 83690; 83735; 84100; 84145; 84484; 85025; 85610; 85730; 92611; 93005; 93306; 93880; 94640; 97116; 97161; 97530; 99285; G0378; J1650; J1953; J3360; J3475; J7030

== ENCOUNTER 2020-01-27 17:27 | Observation (INO) | payer OTHER ==
--- OUTSIDE RECORDS SUMMARY | 2020-01-27 17:30 | XMS REPORT ---
:1945 Author Organization [facility] t Address [address] [place] [address] Care Team Providers Name Role Phone Unavailable Unavailable Unavailable Problems Condition Condition Condition Status Onset Resolution Last Treating Co mments Source Name Details Category Date Date Treatment Clinician Date High High Problem Active [facility] cholester[facility] cholestero Caridad kes - l [facility] High blood High blood Problem Active [facility] pressure pressure [facility] Low back Low back Problem Active [facility] Anxiety Anxiety Problem Active [facility] Depression Depression Problem Active [facility] Chronic Chronic Problem Active [facility] obstructiv obstructiv Caridad kes - e e Memoria pulmonary pulmonary l disease, disease, Outpat i unspecifie unspecifie en t d COPD d COPD Clinics type type Gastroesop Gastroesop Problem Active [facility] hageal hageal [facility] - reflux reflux Memoria disease, disease, l esophagiti esophagiti Ou tpati s presence s presence en t not not Clinics specified specified Other Other Problem Active [facility] chronic chronic [facility] pain pain [facility] Seizures Seizures Problem [facility] Memory Memory Problem Active [facility] problem problem [facility] Depression Depression Problem Active [facility] with with [facility] - anxiety anxiety [facility] Dry mouth Dry mouth Problem Active [facility] 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 Outpati ent Clinics History of History of Problem Active [facility] carotid carotid [facility] - endarterec endarterec Me moria minda minda l [facility] Hyperlipid Hyperlipid Problem Active [facility] emia, emia, [facility] - unspecifie unspecifie Me moria d d l hyperlipid hyperlipid Ou tpati emia type emia type ent Clinics Herpes Herpes Diagnosis Active [facility] zoster zoster [facility] - without without Memoria complicati complicati l on on [facility] Allergies, Adverse Reactions, Alerts Allergy Allergy Status Severity Reaction(s) Onset Inactive Treating Comm ents Source Name Type Date Date Clinician codeine Adverse Active Itching/"cli [facility] Reaction mbing the [facility] - regan" [facility] l [facility] Medications Ordered Filled Start Stop Current Ordering Indication Dosage Frequency Signature Comments Components Source Medication Medication Date Date Medication? Clinician (SIG) Name Name Gabapentin Gabapentin Yes Libra [address] [facility] 4[facility]20 [place] as needed [facility] - 00:00: for severe Memoria 00 pain l [facility] Acyclovir Acyclovir Yes Libra [address] [facility] 4-20 Mill[place] [facility] - 00:00: Memoria 00 l [facility] HydrOXYzine HydrOXYzine Yes Libra [address] [facility] HCl HCl 4-20 Millender as needed [facility] - 00:00: for Memoria 00 itching l [facility] Acetaminoph Acetaminoph 2020- Yes Libra 1-[address] [facility] en en 4-20 04-30 Millender as needed Luke s - 00:00: 00:00 for Memoria 00 :00 pain/fever l [facility] Gabapentin Gabapentin 0 Yes Libra [address] [facility] 3-11 Millender as needed [facility] - 00:00: for pain Memoria 00 l [facility] Amitriptyli Amitriptyli Yes Libra [address] [facility] ne HCl ne HCl Millender at bedtime [facility] - [facility] Omeprazole Omeprazole Yes Libra [address] [facility] Millender [facility] - Memoria l [facility] Simvastatin Simvastatin Yes Libra [address] [facility] Millender in the [facility] - evening Memoria l [facility] Metoprolol Metoprolol Yes Libra [address] [facility] Tartrate Tartrate Millender Caridad kes - Memoria l [facility] Combivent Combivent Yes Libra [address] [facility] Respimat Respimat Millender needed kes - Memoria l Outpati ent Clinics Duloxetine Duloxetine Yes Libra [address] [facility] HCl HCl Millender [facility] - [facility]ics Clonazepam Clonazepam Yes Libra [address] [facility] Millender at bedtime Luke s - Memoria l Outpati ent Clinics Restasis Restasis Yes Libra [address] [facility] Millender into [facility] - affected Memoria eye l Outpati ent Clinics Levetiracet Levetiracet Yes Libra [address] [facility] Amlodipine Amlodipine Yes Libra [address] [facility] Besylate Besylate Millender Caridad [facility] Outpati ent Clinics Stiolto Stiolto Yes Libra 2 puffs [facility] Respimat Respimat [facility] Procedures This patient has no known procedures. Encounters Start End Encounter Admission Attending Care Care Encounter Source Date/Time Date/Time Type Type Clinicians Facility Department ID 2019-12-25 2019-12-25 [facility] [id number] [facility]00 10:00:00 [facility] Medicine Outpati ent Clinics 2019-11-24 2019-11-24 [facility] [id number] [address] 08:25:00 08:25:00 [facility] Medicine Outpati ent Clinics 2019-11-15 2019-11-15 Out[facility] [id number] 10:30:00 10:30:00 [facility] Medicine Outpati ent Clinics Results This patient has no known results.
--- OUTSIDE RECORDS SUMMARY | 2020-01-27 17:30 | XMS REPORT ---
[...] End Date Status Dos age Date Gabapentin [facility] 76689606082 300 MG Orally November 14, Active 1 capsule Once a day in 2019 as needed evening for pain Results No Known Results Summary Purpose eClinicalWorks Submission
--- OUTSIDE RECORDS SUMMARY | 2020-01-27 17:30 | XMS REPORT ---
[...] End Date Status Dosage System Date Metoprolol [facility] 93399203249 50 MG Orally Active 1 ta blet Tartrate Twice a day Acetaminophen ND 07347459894 500 MG Orally December Active 1-2 tablet every 6 hrs; 2019 as needed not to exceed 6 for tablets in 24 pain/fever hours Omeprazole ND 69017606325 40 MG Orally Active 1 ca psule Once a day Clonazepam ND 22529182607 0.5 MG Orally Active 1 t ablet Once a day as at bedtime needed Levetiracetam ND 41345485646 500 MG Orally Active 1 tablet Twice a day Amitriptyline ND 41616462947 50 MG Orally Active 1 tablet HCl Once a day at bedtime Gabapentin ND 64287719858 100 MG Orally December Active 1 c apsule Twice a day 2019 as needed for severe pain Stiolto Respimat [facility] 16444142754 2.5mcg/2.5mcg Activ e 2 puffs inhaled Once a day Amlodipine ND 56376549439 5 MG Orally Active 1 tab let Besylate Once a day Duloxetine HCl ND 46802983417 20 MG Orally Active 1 capsule Twice a day Acyclovir ND 85975234571 800 MG Orally December Active 1 ta blet Five times 2019 daily Combivent [facility] 43614137759 20MCG /100 MCG Active 1 p uff as Respimat Oral Inhalation needed 4 times daily Gabapentin ND 59088719925 300 MG Orally November Active 1 c apsule Once a day in 2019 as needed evening for pain Restasis [facility] 11623384627 0.05 % Active 1 drop Ophthalmic into Twice a day affected eye HydrOXYzine HCl [facility] 76499469490 25 MG Orally December Active 1 tablet every 8 hrs 2019 as needed for itching Simvastatin ND 00345687666 20 MG Orally Active 1 t ablet Once a day in the evening Results No Known Results Summary Purpose eClinicalWorks Submission
--- OUTSIDE RECORDS SUMMARY | 2020-01-27 17:30 | XMS REPORT ---
:1945 [facility] Care Team Providers Name Role Phone [...] Status Dosage System Date Date Amitriptyline [facility] 50525734141 50 MG Orally Active 1 tablet at HCl Once a day bedtime Omeprazole ND 19573687510 40 MG Orally Active 1 ca psule Once a day Simvastatin ND 09958379345 20 MG Orally Active 1 t ablet in Once a day the evening Metoprolol [facility] 04496960349 50 MG Orally Active 1 ta blet Tartrate Twice a day Combivent [facility] 15245846284 20MCG /100 MCG Active 1 p uff as Respimat Oral Inhalation needed 4 times daily Duloxetine HCl [facility] 47528121540 20 MG Orally Active 1 capsule Twice a day Clonazepam [facility] 07863509295 0.5 MG Orally Active 1 t ablet at Once a day as bedtime needed Restasis [facility] 01737396289 0.05 % Active 1 drop into Ophthalmic affected Twice a day eye Levetiracetam [facility] 22734290020 500 MG Orally Active 1 tablet Twice a day Amlodipine [facility] 94739014625 5 MG Orally Active 1 tab let Besylate Once a day Stiolto Respimat [facility] 37167436171 2.5mcg/2.5mcg Activ e 2 puffs inhaled Once a day Gabapentin [facility] 69409471473 100 MG Orally November Active 1 c apsule Once a day in 2019 as needed evening for pain Results No Known Results Summary Purpose eClinicalWorks Submission
--- NOTE | 2020-01-27 18:06 | RAD REPORT ---
EXAM DESCRIPTION: RAD - Chest Single View - 01/27/2020 5:59 pm CLINICAL HISTORY: syncope Chest pain. COMPARISON: Chest Single View dated 01/10/2020; Chest Single View dated 07/21/2019; Chest Single View dated 12/14/2018; Chest Single View dated 12/10/2018 FINDINGS: Portable technique limits examination quality. Emphysematous changes present throughout the lungs with patchy opacity in left base likely representi ng minimal infiltrate/ pneumonia. The lungs are otherwise clear. The heart is upper limit normal. Mil d dextroscoliosis of the thoracic spine.
[2020-01-27 18:17] LABS: Urine Blood NEGATIVE (NEG); Urine Glucose NEGATIVE (NEG); Urine Protein NEGATIVE (NEG)
[2020-01-27 18:32] LABS: ALT/SGPT 15 U/L (12-78); AST/SGOT 14 U/L (15-37); Albumin 3.2 g/dL (3.4-5.0); Alkaline Phosphatase 134 U/L (45-117); BUN Blood Urea Nitrogen 15 mg/dL (7-18); Bicarbonate 27 mmol/L (21-32); Bilirubin Direct 0.1 mg/dL (0-0.2); Bilirubin Total 0.3 mg/dL (0.2-1.0); Glucose Level 88 mg/dL (74-106); Magnesium 1.9 mg/dL (1.8-2.4); NT PRO-BNP 1320 pg/mL (<125); Potassium 3.9 mmol/L (3.5-5.1); Protein, Total 6.5 g/dL (6.4-8.2); Sodium Level 139 mmol/L (136-145); Troponin (Emerg Dept Use Only) < 0.02 ng/mL (0.0-0.045)
[2020-01-27 18:47] LABS: Protime INR 0.98
[2020-01-27 18:49] LABS: Absolute Lymphocytes (CBC) 1.2 K/uL (0.7-4.9); Basophils % 0.6 % (0-1.3); Hematocrit 34.3 % (36.0-45.0); Lymphocytes % 15.3 % (15.3-44.8); MPV 7.1 fL (7.6-11.3); RBC Red Blood Cell Count 3.63 M/uL (3.86-4.86)
[2020-01-27 19:10] LABS: Barbiturates NEGATIVE (NEGATIVE); Benzodiazepines POSITIVE (NEGATIVE); Cocaine NEGATIVE (NEGATIVE); METHAMPHETAM NEGATIVE (NEGATIVE); Methadone NEGATIVE (NEGATIVE); Opiates NEGATIVE (NEGATIVE); Phencyclidine NEGATIVE (NEGATIVE); THC Cannibis NEGATIVE (NEGATIVE)
--- NOTE | 2020-01-27 19:20 | RAD REPORT ---
EXAM DESCRIPTION: CT - Head Brain Wo Cont - 01/27/2020 6:56 pm CLINICAL HISTORY: SYNCOPE Headache, drowsiness COMPARISON: Ct Stroke Brain Wo Cont dated 07/22/2019; Head Brain Wo Cont dated 07/21/2019 TECHNIQUE: All CT scans are performed using dose optimization technique as appropriate and may inclu de automated exposure control or mA/KV adjustment according to patient size. FINDINGS: No intracranial hemorrhage, hydrocephalus or extra-axial fluid collection.Moderate general ized brain atrophy is present with moderate periventricular and deep white matter chronic microvascul ar ischemic changes.No areas of brain edema or evidence of midline shift. The paranasal sinuses and mastoids are clear. The calvarium is intact. IMPRESSION: No acute intracranial abnormality.
--- NOTE | 2020-01-27 19:35 | EDPHYS ---
Physician Documentation [facility] Name: Shilpa Richardson Age: 74 yrs Sex: Female : 1945 Arrival Date: 01/27/2020 Time: 17:37 Bed 2 Private MD: ED Physician Micha Frazier HPI: 01/26 17:42 This 74 yrs old Female presents to ER via Unassigned with complaints of mh7 Syncope, Possible Overdose. 17:42 The patient has experienced syncope, became unresponsive, collapsed, lost mh7 consciousness. Onset: The symptoms/episode began/occurred just prior to arrival, today. Duration: This was a single episode, that lasted an unknown period of time. Context: the episode(s) was witnessed, by family, sister, occurred at home, occurred while the patient was sitting, Just prior to the episode the patient experienced no apparent symptoms. Associated injury: The patient did not suffer any apparent associated injury. Associated signs and symptoms: Pertinent negatives: abdominal pain, agitation, ataxia, blurred vision, chest pain, combativeness, confusion, diaphoresis, diarrhea, dizziness, headache, lightheadedness, nausea, numbness, palpitations, seizure, shortness of breath, tingling, vertigo, vomiting, weakness. Current symptoms: Currently, the patient is not experiencing any symptoms, the patient feels back to baseline. The patient has experienced similar episodes in the past, several times. According to EMS, patient family member states that she was sitting in a chair then slumped over then fell onto the floor. On arrival to scene, patient had decreased LOC and was bradycardic with a heart rate in the 40's. She was given Atropine with minimal response. She was given Glucagon and heart rate normalized and she she became more responsive.. Historical: - Allergies: 17:46 adhesive tape; em 17:46 Codeine; em 17:46 Diphenhydramine; em 17:46 Erythromycin; em 17:46 PENICILLINS; em 17:46 Tape; em - PMHx: 17:46 Alcoholism; Anxiety; Carotid blockage; Chronic pain; COPD; Depression; Hypertension; em ADD/ADHD; - Immunization history:: Adult Immunizations unknown. - Social history:: Smoking status: unknown. ROS: 17:42 Constitutional: Negative for fever, chills, and weight loss, Eyes: Negative for injury, mh7 pain, redness, and discharge, ENT: Negative for injury, pain, and discharge, Neck: Negative for injury, pain, and swelling, Cardiovascular: Negative for chest pain, palpitations, and edema, Respiratory: Negative for shortness of breath, cough, wheezing, and pleuritic chest pain, Abdomen/GI: Negative for abdominal pain, nausea, vomiting, diarrhea, and constipation, Back: Negative for injury and pain, : Negative for injury, bleeding, discharge, and swelling, MS/Extremity: Negative for injury and deformity, Skin: Negative for injury, rash, and discoloration, Neuro: Negative for headache, weakness, numbness, tingling, and seizure, Psych: Negative for depression, anxiety, suicide ideation, homicidal ideation, and hallucinations, Allergy/Immunology: Negative for hives, rash, and allergies, Endocrine: Negative for neck swelling, polydipsia, polyuria, polyphagia, and marked weight changes, Hematologic/Lymphatic: Negative for swollen nodes, abnormal bleeding, and unusual bruising. Exam: 17:42 Constitutional: This is a well developed, well nourished patient who is awake, alert, mh7 and in no acute distress. Head/Face: Normocephalic, atraumatic. Eyes: Pupils equal round and reactive to light, extra-ocular motions intact. Lids and lashes normal. Conjunctiva and sclera are non-icteric and not injected. Cornea within normal limits. Periorbital areas with no swelling, redness, or edema. ENT: Nares patent. No nasal discharge, no septal abnormalities noted. Tympanic membranes are normal and external auditory canals are clear. Oropharynx with no redness, swelling, or masses, exudates, or evidence of obstruction, uvula midline. Mucous membranes moist. Neck: Trachea midline, no thyromegaly or masses palpated, and no cervical lymphadenopathy. Supple, full range of motion without nuchal rigidity, or vertebral point tenderness. No Meningismus. Chest/axilla: Normal chest wall appearance and motion. Nontender with no deformity. No lesions are appreciated. Cardiovascular: Regular rate and rhythm with a normal S1 and S2. No gallops, murmurs, or rubs. Normal PMI, no JVD. No pulse deficits. Respiratory: Lungs have equal breath sounds bilaterally, clear to auscultation and percussion. No rales, rhonchi or wheezes noted. No increased work of breathing, no retractions or nasal flaring. Abdomen/GI: Soft, non-tender, with normal bowel sounds. No distension or tympany. No guarding or rebound. No evidence of tenderness throughout. Back: No spinal tenderness. No costovertebral tenderness. Full range of motion. Skin: Warm, dry with normal turgor. Normal color with no rashes, no lesions, and no evidence of cellulitis. MS/ Extremity: Pulses equal, no cyanosis. Neurovascular intact. Full, normal range of motion. Neuro: Awake and alert, GCS 15, oriented to person, place, time, and situation. Cranial nerves II-XII grossly intact. Motor strength 5/5 in all extremities. Sensory grossly intact. Cerebellar exam normal. Normal gait. Psych: Awake, alert, with orientation to person, place and time. Behavior, mood, and affect are within normal limits. Vital Signs: 17:39 BP 117 / 76; Pulse 58; Resp 18; Temp 98.4; Pulse Ox 97% on R/A; Pain 0/10; em 19:37 BP 143 / 69; Pulse 48; Resp 13 S; Pulse Ox 95% on R/A; jd3 20:46 BP 168 / 78; Pulse 85; Resp 16 S; Pulse Ox 94% on R/A; Pain 0/10; jd3 21:15 BP 147 / 90; Pulse 88; Resp 17 S; Pulse Ox 94% on R/A; jd3 22:24 BP 122 / 88; Pulse 84; Resp 16 S; Pulse Ox 96% on R/A; jd3 MDM: 17:35 Patient medically screened. mh7 17:37 Patient medically screened. [facility] 19:30 Differential Diagnosis: cardiac arrhythmia, cerebrovascular accident, drug effect, 7 idiopathic syncope, sepsis, vasovagal episode. Data reviewed: vital signs, nurses notes, EMS record, old medical records, lab test result(s), cardiac enzymes, CBC, drug level(s), electrolytes, urinalysis, EKG, radiologic studies, CT scan, plain films. Data interpreted: ekg monitor tech: rate is 60 beats/min, rhythm is normal sinus rhythm, regular, Interpretation: normal rate, normal rhythm, Pulse oximetry: on room air is 97 %. Interpretation: normal. 01/27 07:50 Counseling: I had a detailed discussion with the patient and/or guardian regarding: the [facility] historical points, exam findings, and any diagnostic results supporting the discharge/admit diagnosis, lab results, radiology results, the need for further work-up and treatment in the hospital. 01/26 17:39 Order name: Basic Metabolic Panel [facility] 01/26 17:39 Order name: CBC with Diff [facility] 01/26 17:39 Order name: LFT's [facility] 01/26 17:39 Order name: Magnesium; Complete Time: 18:34 [facility] 01/26 17:39 Order name: NT PRO-BNP; Complete Time: 18:34 [facility] 01/26 17:39 Order name: PT-INR; Complete Time: 19:24 [facility] 01/26 17:39 Order name: Troponin (emerg Dept Use Only); Complete Time: 18:34 [facility] 01/26 17:39 Order name: Basic Metabolic Panel; Complete Time: 18:34 [facility] 01/26 17:39 Order name: CBC with Automated Diff; Complete Time: 19:24 [facility] 01/26 17:39 Order name: Liver (Hepatic) Function; Complete Time: 18:34 [facility] 01/26 17:51 Order name: ETOH Level; Complete Time: 19:00 [facility] 01/26 17:51 Order name: UDS; Complete Time: 19:24 [facility] 01/26 18:09 Order name: Urine Dipstick--Ancillary (enter results) [facility]b 01/26 19:32 Order name: Blood Culture Adult (2) [facility] 01/26 17:39 Order name: XRAY Chest (1 view); Complete Time: 18:25 [facility] 01/26 20:16 Order name: CBC with Automated Diff [facility] 01/26 20:16 Order name: CBC with Automated Diff [facility] 01/26 20:16 Order name: Comprehensive Metabolic Panel [facility] 01/26 20:16 Order name: Comprehensive Metabolic Panel [facility] 01/26 20:16 Order name: Lipid Profile [facility] 01/26 20:16 Order name: Lipid Profile [facility] 01/26 20:16 Order name: Protime (+INR) [facility] 01/26 20:16 Order name: Protime (+INR) [facility] 01/26 20:16 Order name: PTT, Activated Partial Thromb [facility] 01/26 20:16 Order name: PTT, Activated Partial Thromb [facility] 01/26 20:16 Order name: Troponin I [facility] 01/26 20:16 Order name: Troponin I [facility] 01/26 20:16 Order name: Troponin I [facility] 01/26 22:06 Order name: CORONAVIRUS [facility] 01/26 17:39 Order name: EKG; Complete Time: 17:40 [facility] 01/26 17:39 Order name: Cardiac monitoring; Complete Time: 17:52 [facility] 01/26 17:39 Order name: EKG - Nurse/Tech; Complete Time: 17:52 [facility] 01/26 17:39 Order name: IV Saline Lock; Complete Time: 18:40 [facility] 01/26 17:39 Order name: Labs collected and sent; Complete Time: 18:40 [facility] 01/26 17:39 Order name: O2 Per Protocol; Complete Time: 17:52 [facility] 01/26 17:39 Order name: O2 Sat Monitoring; Complete Time: 17:52 [facility] 01/26 17:39 Order name: Urine Dipstick-Ancillary (obtain specimen); Complete Time: 17:52 [facility] 01/26 17:39 Order name: CT Head Brain wo Cont; Complete Time: 19:24 [facility] 01/26 20:00 Order name: Droplet/Contact Precautions; Complete Time: 20:00 01/26 20:16 Order name: CONS Pharmacy Consult [facility] 01/26 20:16 Order name: CONS Physician Consult [facility] 01/26 20:16 Order name: NPO [facility] 01/26 20:16 Order name: EKG Electrocardiogram [facility] 01/26 20:16 Order name: EKG Electrocardiogram [facility] Administered Medications: 01/26 20:32 Drug: LevaQUIN 500 mg Volume: 100 ml; Route: IVPB; Infused Over: 60 mins; Site: left jd3 femoral; 21:30 Follow up: Response: No adverse reaction; IV Status: Completed infusion; IV Intake: jd3 100ml Point of Care Testin:24 no test point of care test ordered [facility] Ranges: Critical Glucose Levels:Adult <50 mg/dl or >400 mg/dl <40 mg/dl or >180 mg/dl Disposition: 01/27/20 19:32 Hospitalization ordered by Rashmi Walter for Inpatient Admission. Preliminary diagnosis are Syncope and collapse, Pneumonia in diseases classified elsewhere, Urinary tract infection, site not specified. - Bed requested for Telemetry/MedSurg (Inpatient). - Status is Inpatient Admission. jd3 - Condition is Stable. - Problem is new. - Symptoms have improved. Signatures: Dispatcher [employer] EDAmy Gorman RN RN Vin Marquez, RN RN Josué Tsai RN RN jd3 Micha Frazier MD MD 7 Corrections: (The following items were deleted from the chart) 20:23 19:32 Hospitalization Ordered by Rashmi Walter MD for Inpatient Admission. Preliminary diagnosis is Syncope and collapse; Pneumonia in diseases classified elsewhere; Urinary tract infection, site not specified. Bed requested for Telemetry/MedSurg (Inpatient). Status is Inpatient Admission. Condition is Stable. Problem is new. Symptoms have improved. [facility] 22:26 20:23 01/27/2020 19:32 Hospitalization Ordered by Rashmi Walter MD for Inpatient jd3 Admission. Preliminary diagnosis is Syncope and collapse; Pneumonia in diseases classified elsewhere; Urinary tract infection, site not specified. Bed requested for Telemetry/MedSurg (Inpatient). Status is Inpatient Admission. Condition is Stable. Problem is new. Symptoms have improved. mw
--- NOTE | 2020-01-27 19:35 | ER ---
Nurse's Notes [facility] Name: Shilpa Richardson Age: 74 yrs Sex: Female : 1945 Arrival Date: 01/27/2020 Time: 17:37 Bed 2 Private MD: Diagnosis: Syncope and collapse;Pneumonia in diseases classified elsewhere;Urinary tract infection, site not specified Presentation: 01/26 17:39 Chief complaint: EMS states: called out for a fall, sister witnessed pt slump over and em fall from chair, EMS showed up, HR was in the 40s, BP in the 90s, EMS gave 0.5 mg atropine IV x 1 and HR remained the same, EMS gave 3 mg of glucagon IV x 1 and brought HR into the 70s and BP up to 140/70s, pt drowsy and denies taking any of her metoprolol medication on purpose, pt c-collared, Dr. Frazier at bedside. Coronavirus screen: Proceed with normal triage. Ebola Screen: Patient negative for fever greater than or equal to 101.5 degrees Fahrenheit, and additional compatible Ebola Virus Disease symptoms Patient denies exposure to infectious person. Patient denies travel to an Ebola-affected area in the 21 days before illness onset. No symptoms or risks identified at this time. Initial Sepsis Screen: Does the patient meet any 2 criteria? No. Patient's initial sepsis screen is negative. Does the patient have a suspected source of infection? No. Patient's initial sepsis screen is negative. Risk Assessment: Do you want to hurt yourself or someone else? Patient reports no desire to harm self or others. Onset of symptoms. 17:39 Method Of Arrival: EMS: [facility] em 17:39 Acuity: PATRICIA 2 em Triage Assessment: 19:30 Neuro: Reports syncope prior to arrival. jd3 Historical: - Allergies: 17:46 adhesive tape; em 17:46 Codeine; em 17:46 Diphenhydramine; em 17:46 Erythromycin; em 17:46 PENICILLINS; em 17:46 Tape; em - PMHx: 17:46 Alcoholism; Anxiety; Carotid blockage; Chronic pain; COPD; Depression; Hypertension; em ADD/ADHD; - Immunization history:: Adult Immunizations unknown. - Social history:: Smoking status: unknown. Screenin:39 Abuse screen: Denies threats or abuse. Nutritional screening: No deficits noted. em Tuberculosis screening: No symptoms or risk factors identified. Fall Risk Fall in past 12 months (25 points). IV access (20 points). Gait- Impaired (20 pts.). Mental Status- Overestimates/Forgets Limitations (15 pts.). Total Solorzano Fall Scale indicates High Risk Score (45 or more points). Side Rails Up X 2 Placed Close to Nursing Station. Assessment: 17:37 General: Appears in no apparent distress. comfortable, ill, Behavior is calm, em cooperative, appropriate for age. Pain: Denies pain. Neuro: Level of Consciousness is awake, obeys commands, drowsy. Oriented to person, place, time, situation, Appropriate for age. Cardiovascular: Rhythm is sinus bradycardia. Respiratory: Airway is patent Respiratory effort is even, unlabored, Respiratory pattern is regular, symmetrical. GI: Abdomen is flat. Derm: Skin is intact, is fragile, is thin, Skin is pink, warm \T\ dry. Musculoskeletal: Range of motion: intact in all extremities. 18:38 Reassessment: Patient appears in no apparent distress at this time. Patient and/or em family updated on plan of care and expected duration. Pain level reassessed. Patient is alert, oriented x 3, equal unlabored respirations, skin warm/dry/pink. 19:30 General: Appears in no apparent distress. comfortable, Behavior is calm, cooperative, jd3 appropriate for age. Pain: Denies pain. Neuro: Level of Consciousness is awake, alert, obeys commands, Oriented to person, place, time, situation. Cardiovascular: Capillary refill < 3 seconds Patient's skin is warm and dry. Respiratory: Airway is patent Respiratory effort is even, unlabored, Respiratory pattern is regular, symmetrical, Breath sounds are clear bilaterally. GI: No signs and/or symptoms were reported involving the gastrointestinal system. : No signs and/or symptoms were reported regarding the genitourinary system. EENT: No signs and/or symptoms were reported regarding the EENT system. Derm: Skin is intact, is fragile, is thin, Skin is dry, Skin is normal, Skin temperature is warm. Musculoskeletal: No signs and/or symptoms reported regarding the musculoskeletal system. 20:48 Reassessment: Patient appears in no apparent distress at this time. Patient and/or jd3 family updated on plan of care and expected duration. Pain level reassessed. Patient is alert, oriented x 3, equal unlabored respirations, skin warm/dry/pink. 21:14 Reassessment: Patient appears in no apparent distress at this time. Patient and/or jd3 family updated on plan of care and expected duration. Pain level reassessed. Patient is alert, oriented x 3, equal unlabored respirations, skin warm/dry/pink. report given to Benito VALERO. Vital Signs: 17:39 BP 117 / 76; Pulse 58; Resp 18; Temp 98.4; Pulse Ox 97% on R/A; Pain 0/10; em 19:37 BP 143 / 69; Pulse 48; Resp 13 S; Pulse Ox 95% on R/A; jd3 20:46 BP 168 / 78; Pulse 85; Resp 16 S; Pulse Ox 94% on R/A; Pain 0/10; jd3 21:15 BP 147 / 90; Pulse 88; Resp 17 S; Pulse Ox 94% on R/A; jd3 22:24 BP 122 / 88; Pulse 84; Resp 16 S; Pulse Ox 96% on R/A; jd3 ED Course: 17:35 Micha Frazier MD is Attending Physician. mh7 17:37 Patient arrived in ED. em 17:39 Patient has correct armband on for positive identification. Bed in low position. Call em light in reach. Side rails up X2. 17:39 Maintain EMS IV. Dressing intact. Good blood return noted. Site clean \T\ dry. Gauge \T\ em site: 20 RFA . 17:45 Triage completed. em 17:46 Arm band placed on. em 17:52 Urine collected: clean catch specimen, clear, cassie colored, EKG done, by ED staff, jb1 reviewed by Micha Frazier MD. 17:59 XRAY Chest (1 view) In Process Unspecified. EDMS 18:14 Vin Marquez, RN is Primary Nurse. em 18:56 CT Head Brain wo Cont In Process Unspecified. EDMS 19:31 Rashmi Walter MD is Hospitalizing Provider. mh7 20:00 Inserted saline lock: 22 gauge in left wrist, using aseptic technique. Blood collected. ds4 20:15 First set of blood cultures drawn by me, Second set of blood cultures drawn by me. ds4 22:23 No provider procedures requiring assistance completed. Patient admitted, IV remains in jd3 place. Administered Medications: 20:32 Drug: LevaQUIN 500 mg Volume: 100 ml; Route: IVPB; Infused Over: 60 mins; Site: left jd3 femoral; 21:30 Follow up: Response: No adverse reaction; IV Status: Completed infusion; IV Intake: jd3 100ml Point of Care Testin:24 no test point of care test ordered j Ranges: Intake: 21:30 IV: 100ml; Total: 100ml. [facility] Outcome: 19:32 Decision to Hospitalize by Provider. [facility] 22:23 Admitted to Med/surg accompanied by tech, via stretcher, room 412. jd3 22:23 Condition: stable 22:23 Instructed on the need for admit, Demonstrated understanding of instructions. 22:26 Patient left the ED. [facility] Signatures: Dispatcher [employer] Oh Ovalles jb1 Vin Marquez, José Miguel De Leon RN4 Josué Gutiérrez RN RN jd3 Holmes, Maurice, MD MD [facility]
[2020-01-27] MEDS ORDERED: Levofloxacin500mg IV 500 MG/100 ML BAG IV ONE (19:44)
[2020-01-27] MEDS ORDERED: MORPHINE 2 MG/ML SYR IV PRN (20:11)
[2020-01-27] MEDS ORDERED: ACETAMINOPHEN 500 MG TAB PO PRN (20:11)
[2020-01-27] MEDS ORDERED: ONDANSETRON 4 MG/2 ML VIAL IV PRN (20:11)
[2020-01-27 22:40] VITALS: O2SAT 96
[2020-01-27] MEDS: NA CHLORIDE 0.9% 1,000 ML IV SCH (22:59)
[2020-01-27] MEDS: levETIRAcetam 500 MG TAB PO SCH (23:00)
[2020-01-27] MEDS: clonazePAM 0.5 MG TAB PO SCH (23:00)
[2020-01-27] MEDS: APIXABAN 2.5 MG TABLET PO SCH (23:00)
[2020-01-28 00:33] VITALS: BMI 17.8
[2020-01-28 04:45] LABS: Absolute Lymphocytes (CBC) 1.5 K/uL (0.7-4.9); Basophils % 0.6 % (0-1.3); Hematocrit 34.6 % (36.0-45.0); Lymphocytes % 17.1 % (15.3-44.8); MPV 6.7 fL (7.6-11.3); RBC Red Blood Cell Count 3.76 M/uL (3.86-4.86)
[2020-01-28 05:10] LABS: ALT/SGPT 16 U/L (12-78); AST/SGOT 16 U/L (15-37); Albumin 3.4 g/dL (3.4-5.0); Alkaline Phosphatase 144 U/L (45-117); BUN Blood Urea Nitrogen 10 mg/dL (7-18); Bicarbonate 26 mmol/L (21-32); Bilirubin Total 0.5 mg/dL (0.2-1.0); Glucose Level 78 mg/dL (74-106); HDL Cholesterol 98 mg/dL (40-60); LDL Cholesterol, Calculated 89 (<130); Potassium 3.4 mmol/L (3.5-5.1); Protein, Total 6.9 g/dL (6.4-8.2); Sodium Level 138 mmol/L (136-145); Troponin I < 0.02 ng/mL (0.0-0.045)
[2020-01-28 05:11] LABS: Protime INR 1.2
--- NOTE | 2020-01-28 08:56 | P.HP ---
Certification for Inpatient Patient admitted to: Inpatient With expected LOS: >2 Midnights Patient will require the following post-hospital care: None Practitioner: I am a practitioner with admitting privileges, knowledge of patient current condition, hospital course, and medical plan of care. Services: Services provided to patient in accordance with Admission requirements found in Title 42 Section 412.3 of the Code of Federal Regulations Patient History Date of Service: 01/27/20 Reason for admission: Bradycardia; altered mentation; hypoglycemia History of Present Illness: Patient is a 74-year-old female who comes into the hospital after possibly overdosing on some medication. However, her drug screen only revealed benzodiazepines in her system. She was at home and she had collapsed and passed out. If her family was with her and they tried to arouse her. EMS came out and they found she was hypoglycemic and bradycardic with a heart rate in the low 40s. She was given atropine if as well as glucose and glucagon. Her heart rate improved after this was done. She came into the emergency room in her blood sugars remained low. She was given additional medications and after review of medications she was found to be on a beta-ramila. This was felt to be most likely causing some of her symptoms. As her heart rate stabilizer mentation starts slowly improved. She was admitted to the hospital and she was tested for COVID-19. She will be admitted to the hospital for further evaluation. Patient does have a history of alcohol abuse. She has cut down on her drinking. She denies any substance abuse recently. Will monitor her closely for delirium tremens. Anticipate discharge once her bradycardia is worked up. Check thyroid studies as well. Allergies adhesive tape Allergy (Verified 11/28/18 21:48) blisters codeine Allergy (Verified 11/28/18 21:48) Itching diphenhydramine [From Benadryl] Allergy (Verified 11/28/18 21:48) Itching Penicillins Allergy (Verified 11/28/18 21:48) Anaphylaxis Erythromycin Allergy (Severe, Uncoded 11/28/18 21:48) Nausea/Vomiting Home Medications: Ipratropium/Albuterol Sulfate [Combivent Respimat 20-100 Mcg] 1 puff IH QID PRN 12/08/18 Simvastatin 20 tab PO DAILY 12/08/18 Omeprazole [Prilosec] 40 mg PO DAILY 12/10/18 Amitriptyline HCl 50 mg PO BEDTIME 07/22/19 Bimatoprost [Lumigan Opthalmic Drops*] 1 drop EACH EYE DAILY 07/22/19 Cyclosporine [Restasis] 1 drop EACH EYE BID 07/22/19 Duloxetine HCl [Cymbalta] 30 mg PO DAILY 07/22/19 Metoprolol Tartrate [Lopressor*] 50 mg PO BID 07/22/19 clonazePAM [Clonazepam] 0.5 mg PO TID 07/22/19 Folic Acid 1 mg PO DAILY #30 tablet 07/25/19 Thiamine HCl [Vitamin B-1*] 100 mg PO DAILY #30 tablet 07/25/19 levETIRAcetam [Keppra*] 500 mg PO BID #30 tab 07/25/19 Amlodipine [Norvasc*] 10 mg PO DAILY #30 tab 01/12/20 Apixaban [Eliquis] 2.5 mg PO BID #60 tablet 01/12/20 Aspirin [Aspirin EC 81 MG] 162 mg PO DAILY #60 tablet. 01/12/20 - Past Medical/Surgical History Has patient received pneumonia vaccine in the past: No Diabetic: No -: COPD -: HTN -: Osteoporosis -: Depression with anxiety -: Carotid arterial disease -: Macular Degenartion -: Hyperlipidemia -: Cataracts -: Cataract sx Rt eye -: Carotid enterectomy -: Cholecystectomy -: C-sections x3 -: Tonsillectomy Psychosocial/ Personal History: She is , she has 2 children, she lives with a sister. She does not work. - Family History Father Medical History: Heart disease, Lung disease Mother Medical History: Stroke Notes: TIA's - Social History Smoking Status: Former smoker Alcohol use: Yes CD- Drugs: No Caffeine use: Yes Place of Residence: Home Review of Systems 10-point ROS is otherwise unremarkable Physical Examination - Vital Signs Temperature: 98.0 F Blood Pressure: 167/72 Pulse: 90 Respirations: 17 Pulse Ox (%): 97 - Physical Exam General: Alert, In no apparent distress, Oriented x3 HEENT: Atraumatic, PERRLA, Mucous membr. moist/pink, EOMI, Sclerae nonicteric Neck: Supple, 2+ carotid pulse no bruit, No LAD, Without JVD or thyroid abnormality Respiratory: Clear to auscultation bilaterally, Normal air movement Cardiovascular: Other (Patient was bradycardic) Gastrointestinal: Normal bowel sounds, Soft and benign, Non-distended, No tenderness Musculoskeletal: No clubbing, No swelling, No tenderness Integumentary: No rashes Neurological: Normal gait, Normal speech, Normal strength at 5/5 x4 extr, Normal tone, Sensation intact, Cranial nerves 3-12 intact, Normal affect Lymphatics: No axilla or inguinal lymphadenopathy - Studies Laboratory Data (last 24 hrs) 01/27/20 18:05: PT 11.6, INR 0.98 01/27/20 18:05: WBC 7.6, Hgb 11.4 L, Hct 34.3 L, Plt Count 453 H 01/27/20 18:05: Sodium 139, Potassium 3.9, BUN 15, Creatinine 0.82, Glucose 88, Magnesium 1.9, Total Bilirubin 0.3, AST 14 L, ALT 15, Alkaline Phosphatase 134 H Microbiology Data (last 24 hrs): 01/27/20 20:04 Nasopharnyx Coronavirus COVID-19 PCR - Final Assessment & Plan - Problems (Diagnosis) (1) Bradycardia Current Visit: Yes Status: Acute (2) Hypoglycemia Current Visit: Yes Status: Acute (3) History of alcohol abuse Current Visit: Yes Status: Acute (4) History of beta adrenergic receptor blocking agent therapy Current Visit: Yes Status: Acute (5) Seizure Current Visit: No Status: Acute (6) Depression with anxiety Onset Date: 06/03/17 Current Visit: No Status: Chronic (7) Hyperlipidemia Onset Date: 06/03/17 Current Visit: No Status: Chronic Qualifiers: (8) Hypertension Onset Date: 06/03/17 Current Visit: No Status: Chronic Qualifiers: (9) Alcohol abuse, continuous drinking behavior Current Visit: Yes Status: Acute - Plan Plan: 1. Will monitor blood sugars closely 2. Monitor on telemetry 3. If blood pressure continues to drop and blood pressure goes down then we may transfer to ICU and put on a dopamine drip 4. Cardiology consultation 5. May need cardiac workup done 6. May need cardiac intervention including possibly a loop recorder 7. Hold Lopressor therapy 8. Monitor for alcohol withdrawals 9. GI and DVT prophylaxis Discharge Plan: Home Plan to discharge in: Greater than 2 days - Advance Directives Does patient have a Living Will: No Does patient have a Durable POA for Healthcare: No - Code Status/Comfort Care Code Status Assessed: Yes Code Status: Full Code Critical Care: No Time Spent Managing PTS Care (In Minutes): 40
--- NOTE | 2020-01-28 08:59 | P.PN ---
Subjective Date of Service: 01/28/20 Patient is improved today. Heart rate is much better. Will need to speak with Cardiology regarding what medication to use for her blood pressure. She has a history of alcohol abuse but looks to be doing well. She say she has cut down on her alcohol use but is still drinking a little bit. Will monitor her closely and she may need further intervention to see if she may have sick sinus syndrome or thyroid abnormalities. Cardiac workup pending. Review of Systems 10-point ROS is otherwise unremarkable Physical Examination - Vital Signs Temperature: 98.0 F Blood Pressure: 167/72 Pulse: 90 Respirations: 17 Pulse Ox (%): 97 - Physical Exam General: Alert, In no apparent distress, Oriented x3 Respiratory: Clear to auscultation bilaterally, Normal air movement Cardiovascular: No murmurs, Irregular heart rate/rhythm Gastrointestinal: Normal bowel sounds, Soft and benign, Non-distended, No tenderness Musculoskeletal: No clubbing, No swelling, No tenderness - Studies Laboratory Data (last 24 hrs) 01/27/20 18:05: PT 11.6, INR 0.98 01/27/20 18:05: WBC 7.6, Hgb 11.4 L, Hct 34.3 L, Plt Count 453 H 01/27/20 18:05: Sodium 139, Potassium 3.9, BUN 15, Creatinine 0.82, Glucose 88, Magnesium 1.9, Total Bilirubin 0.3, AST 14 L, ALT 15, Alkaline Phosphatase 134 H Microbiology Data (last 24 hrs): 01/27/20 20:04 Nasopharnyx Coronavirus COVID-19 PCR - Final Medications List Reviewed: Yes Assessment & Plan - Problems (Diagnosis) (1) Bradycardia Current Visit: Yes Status: Acute (2) Hypoglycemia Current Visit: Yes Status: Acute (3) History of alcohol abuse Current Visit: Yes Status: Acute (4) History of beta adrenergic receptor blocking agent therapy Current Visit: Yes Status: Acute (5) Seizure Current Visit: No Status: Acute (6) Depression with anxiety Onset Date: 06/03/17 Current Visit: No Status: Chronic (7) Hyperlipidemia Onset Date: 06/03/17 Current Visit: No Status: Chronic Qualifiers: (8) Hypertension Onset Date: 06/03/17 Current Visit: No Status: Chronic Qualifiers: (9) Alcohol abuse, continuous drinking behavior Current Visit: Yes Status: Acute - Plan Plan: continue with current plan of care as mentioned below 1. Continue to monitor blood sugars closely 2. Continue to monitor on telemetry 3. Cardiac status is stabilized. Heart rate has improved. Blood pressure is stable. 4. Cardiology consultation pending 5. May need cardiac workup done including monitoring for possible sick sinus syndrome; check thyroid studies 6. May need cardiac intervention including possibly a loop recorder 7. Hold Lopressor therapy 8. Monitor for alcohol withdrawals 9. GI and DVT prophylaxis Discharge Plan: Home Plan to discharge in: Greater than 2 days - Advance Directives Does patient have a Living Will: No Does patient have a Durable POA for Healthcare: No - Code Status/Comfort Care Code Status: Full Code Critical Care: No Time Spent Managing PTS Care (In Minutes): 30
[2020-01-28] MEDS ORDERED: ASPIRIN EC 81 MG TAB PO SCH (09:00)
[2020-01-28] MEDS: AMITRIPTYLINE 50 MG TAB PO SCH ×2 (09:00→10:00)
[2020-01-28] MEDS ORDERED: AMLODIPINE 10 MG TAB PO SCH (09:00)
[2020-01-28] MEDS: clonazePAM 0.5 MG TAB PO SCH ×2 (10:00→13:32)
[2020-01-28] MEDS: APIXABAN 2.5 MG TABLET PO SCH (10:00)
[2020-01-28] MEDS: levETIRAcetam 500 MG TAB PO SCH (10:01)
[2020-01-28 12:17] LABS: Magnesium 1.6 mg/dL (1.8-2.4); Troponin I < 0.02 ng/mL (0.0-0.045)
--- NOTE | 2020-01-28 12:26 | CON ---
Date of Consultation: 01/28/2020 The patient admitted on 01/27/[address] Walter's service. I saw the patient on 01/28/2020. Reason For Consultation: Altered mental status, bradycardia, and syncope. History Of Present Illness: Ms. Richardson is a 74-year-old woman. She just left the hospital after a new-onset CVA. She was placed on Eliquis because of paroxysmal atrial fibrillation. She was broug ht back with altered mental status, bradycardia, syncope, possible drug overdose with her medication. Ms. Richardson herself is awake, alert, oriented this morning x3, but does not recall what happened. She denied any chest pain, nausea, vomiting, diaphoresis, PND, orthopnea, pedal edema, or palpitation . Her heart rate when she came in was 58, it is now 90. Her BNP was 1320, otherwise her workup was within normal limits. Past Medical History: Includes CAD, carotid endarterectomy, alcohol use, COPD, atrial fibrillation, recent onset CVA, anxiety, ADD, CVA, hypertension, and depression. Allergies: TO ERYTHROMYCIN, BENADRYL, PENICILLIN, TAPE, AND CODEINE. Medications: At home include Cymbalta, Elavil, metoprolol, Eliquis, Norvasc, clonazepam, Prilosec, K eppra, and inhalers. Physical Examination: General: She was in no acute distress. Awake, alert, and oriented x3. Vital Signs: Stable. Afebrile. HEENT: Negative. Neck: Supple with no lymphadenopathy, JVD, or thyromegaly. She has bilateral carotid bruit. Chest: Clear. Cardiac: Revealed irregular rhythm and rate. No murmurs, gallops, or rubs. Abdomen: Benign. Extremities: Revealed no clubbing, cyanosis, or edema. Diagnostic Data: As stated earlier. Impression And Plan: Altered mental status secondary to bradycardia, possible syncope, possibly over dose on medication. She does not remember what happened before. She does not remember if she took m ore medicine than she needs. Nevertheless, she is stable now. Alert and oriented x3. No evidence o f new cerebrovascular accident. No evidence of acute coronary syndrome. Ms. Richardson lives with he r sister, but I am not so sure how compliant she is with her medicine. She is on appropriate medical therapy for all of her medical problems including CVD, cerebrovascular accident, chronic obstructive pulmonary disease, atrial fibrillation, depression, hypertension, anxiety, attention deficit disorde r. Alcohol abuse continues to be an issue. I would not change any of her medicine for now except fo r maybe decrease her metoprolol from 50 b.i.d. to 25 b.i.d., continue her Eliquis and other regimen. She can go home today. I will make arrangements for her to see me in the office in the near future. She definitely needs her carotid arteries re-evaluated. She also missed a Lexiscan as well. ISATU/JAMILA Voice ID: [id number] Report ID: [id number]
[2020-01-28 12:29] VITALS: BP 132/92; TEMP 98.2
--- NOTE | 2020-01-28 13:22 | P.DS ---
Admission Date: 01/27/20 Discharge Date: 01/28/20 Primary Care Provider: unknown Disposition: ROUTINE DISCHARGE Discharge Condition: GOOD Reason for Admission: Bradycardia; altered mentation; hypoglycemia Consultations: Cardiology-Dr. Velez Procedures: CT Head: FINDINGS: No intracranial hemorrhage, hydrocephalus or extra-axial fluid collection.Moderate generalized brain atrophy is present with moderate periventricular and deep white matter chronic microvascular ischemic changes.No areas of brain edema or evidence of midline shift. The paranasal sinuses and mastoids are clear. The calvarium is intact. IMPRESSION: No acute intracranial abnormality. CXR: FINDINGS: Portable technique limits examination quality. Emphysematous changes present throughout the lungs with patchy opacity in left base likely representing minimal infiltrate/ pneumonia. The lungs are otherwise clear. The heart is upper limit normal. Mild dextroscoliosis of the thoracic spine. Medical Problem List: Encephalopathy suspect over use of benzodiazepine Hypoglycemia with poor oral intake Bradycardia likely related to medication Atrial fibrillation on chronic anti coagulation therapy History of CVA Hypertension GERD Depression with anxiety Alcohol use Brief History of Present Illness: 74-year-old female with history of CVA, atrial fibrillation on chronic anti coalition therapy, hypertension seizure disorder, depression with anxiety and chronic pain. Patient presented to the hospital with altered mental status. There was some concern patient may have taken too much benzodiazepine. Her family tried to wake her up. She was found hypoglycemic and bradycardic. Patient required atropine and glucose by EMS. When she presented in the emergency room blood sugars were low. The patient was admitted for further evaluation. Hospital Course: Patient presented with altered mental status/encephalopathy likely related to medication-benzodiazepine. This may have been possibly related to overuse of her medication. Patient initially seen could she was hypoglycemic and bradycardic at that time. Patient required glucose and atropine. The patient was monitored overnight. CT head unremarkable. Chest x-ray unremarkable. The patient was seen by Cardiology. Patient has done well during the course of her stay. No further cardiac intervention is required at this time. For her bradycardia heart rate has now significantly improved. Cardiology recommends to decrease metoprolol to 25 mg 1 pill twice daily. Recommend to monitor blood pressure and heart rate closely. Recommend follow up with cardiology to further address. It is also recommended that the patient limit the use of her benzodiazepine. They should be monitored closely. Will have social work provide help on getting home health and physical therapy within the next week. Patient with hypoglycemia. Patient was treated. During the course of her stay patient improved. She is now eating appropriately. At discharge she will continue with Ensure supplementation 3 times a day. Recommend to monitor blood sugar closely. Patient with underlying atrial fibrillation on chronic anti coagulation therapy. Cardiology recommended to decrease metoprolol due to above issues. At discharge patient will continue with metoprolol 25 mg 1 pill twice daily. Patient will also continue with Eliquis 2.5 mg 1 pill twice daily and aspirin 81 mg daily. Recommend follow up with cardiology in 1-2 weeks to follow up hospitalization. Patient with history of CVA. As mentioned above patient will continue with her current medications. Patient with hypertension. As recommended above patient will continue with metoprolol 25 mg 1 pill twice daily. Patient also takes Norvasc 10 mg daily. Patient will continue with this medication. Patient with depression with anxiety. Patient takes Elavil 50 mg at night, Klonopin 0.5 mg 3 times a day as needed. Klonopin may have been over used. It is recommended to hold medication if with increase sedation. This should be monitored closely. Will have home health arranged to monitor her medications. This can be further addressed by her PCP. Patient with GERD. At discharge she will continue with Protonix 40 mg daily. Patient with hyperlipidemia. At discharge she will continue with Zocor 20 mg daily. Patient with alcohol use. Recommend cessation. Patient will continue with folic acid and thiamine daily. Fall precautions in place. Patient should not mix benzodiazepine with alcohol. Vital Signs/Physical Exam: Temp Pulse Resp BP Pulse Ox 98.2 F 96 H 17 132/92 H 96 01/28/20 12:00 01/28/20 12:00 01/28/20 12:00 01/28/20 12:00 01/28/20 12:00 General: Alert, In no apparent distress, Oriented x3, Cooperative HEENT: Atraumatic Neck: Supple Respiratory: Clear to auscultation bilaterally, Normal air movement Cardiovascular: Normal pulses, Regular rate/rhythm Gastrointestinal: Normal bowel sounds, Soft and benign, Non-distended, No masses, No rebound, No guarding Neurological: Normal speech, Normal strength at 5/5 x4 extr, Normal tone Laboratory Data at Discharge: WBC 8.8 K/uL (4.3-10.9) D 01/28/20 04:30 Hgb 11.9 g/dL (12.0-15.0) L 01/28/20 04:30 Hct 34.6 % (36.0-45.0) L 01/28/20 04:30 Plt Count 484 K/uL (152-406) H 01/28/20 04:30 PT 14.1 SECONDS (9.5-12.5) H 01/28/20 04:30 INR 1.20 01/28/20 04:30 APTT 41.6 SECONDS (24.3-36.9) H 01/28/20 04:30 Sodium 138 mmol/L (136-145) 01/28/20 04:30 Potassium 3.4 mmol/L (3.5-5.1) L 01/28/20 04:30 BUN 10 mg/dL (7-18) 01/28/20 04:30 Creatinine 0.62 mg/dL (0.55-1.3) 01/28/20 04:30 Glucose 78 mg/dL (74-106) 01/28/20 04:30 Magnesium 1.6 mg/dL (1.8-2.4) L 01/28/20 11:35 Total Bilirubin 0.5 mg/dL (0.2-1.0) 01/28/20 04:30 AST 16 U/L (15-37) 01/28/20 04:30 ALT 16 U/L (12-78) 01/28/20 04:30 Alkaline Phosphatase 144 U/L (45-117) H 01/28/20 04:30 Troponin I < 0.02 ng/mL (0.0-0.045) 01/28/20 11:35 Triglycerides 36 mg/dL (<150) 01/28/20 04:30 Cholesterol 194 mg/dL (<200) 01/28/20 04:30 HDL Cholesterol 98 mg/dL (40-60) H 01/28/20 04:30 Cholesterol/HDL Ratio 1.98 01/28/20 04:30 Home Medications: Ipratropium/Albuterol Sulfate [Combivent Respimat 20-100 Mcg] 1 puff IH QID PRN 12/08/18 Simvastatin 20 tab PO DAILY 12/08/18 Omeprazole [Prilosec] 40 mg PO DAILY 12/10/18 Amitriptyline HCl 50 mg PO BEDTIME 07/22/19 Bimatoprost [Lumigan Opthalmic Drops*] 1 drop EACH EYE DAILY 07/22/19 Cyclosporine [Restasis] 1 drop EACH EYE BID 07/22/19 Duloxetine HCl [Cymbalta] 30 mg PO DAILY 07/22/19 clonazePAM [Clonazepam] 0.5 mg PO TID 07/22/19 Folic Acid 1 mg PO DAILY #30 tablet 07/25/19 Thiamine HCl [Vitamin B-1*] 100 mg PO DAILY #30 tablet 07/25/19 levETIRAcetam [Keppra*] 500 mg PO BID #30 tab 07/25/19 Amlodipine [Norvasc*] 10 mg PO DAILY #30 tab 01/12/20 Apixaban [Eliquis *] 2.5 mg PO BID #60 tablet 01/12/20 Aspirin [Aspirin EC 81 MG] 162 mg PO DAILY #60 tablet. 01/12/20 Ensure High Protein 237 ml PO TID #90 can 01/28/20 Metoprolol Tartrate [Lopressor*] 25 mg PO BID #60 tab 01/28/20 New Medications: Ensure High Protein 237 ml PO TID #90 can Metoprolol Tartrate [Lopressor*] 25 mg PO BID #60 tab Patient Discharge Instructions: 1. Recommend follow up with PCP in 1 week to follow up this hospitalization. 2. Patient presented with altered mental status/encephalopathy likely related to medication-benzodiazepine. This may have been possibly related to overuse of her medication. Patient initially seen could she was hypoglycemic and bradycardic at that time. Patient required glucose and atropine. The patient was monitored overnight. CT head unremarkable. Chest x-ray unremarkable. The patient was seen by Cardiology. Patient has done well during the course of her stay. No further cardiac intervention is required at this time. For her bradycardia heart rate has now significantly improved. Cardiology recommends to decrease metoprolol to 25 mg 1 pill twice daily. Recommend to monitor blood pressure and heart rate closely. Recommend follow up with cardiology to further address. It is also recommended that the patient limit the use of her benzodiazepine. They should be monitored closely. Will have social work provide help on getting home health and physical therapy within the next week. 3. Patient with hypoglycemia. Patient was treated. During the course of her stay patient improved. She is now eating appropriately. At discharge she will continue with Ensure supplementation 3 times a day. Recommend to monitor blood sugar closely. 4. Patient with unde rlying atrial fibrillation on chronic anti coagulation therapy. Cardiology recommended to decrease metoprolol due to above issues. At discharge patient will continue with metoprolol 25 mg 1 pill twice daily. Patient will also continue with Eliquis 2.5 mg 1 pill twice daily and aspirin 81 mg daily. Recommend follow up with cardiology in 1-2 weeks to follow up hospitalization. 5. Patient with history of CVA. As mentioned above patient will continue with her current medications. 6. Patient with hypertension. As recommended above patient will continue with metoprolol 25 mg 1 pill twice daily. Patient also takes Norvasc 10 mg daily. Patient will continue with this medication. 7. Patient with depression with anxiety. Patient takes Elavil 50 mg at night, Klonopin 0.5 mg 3 times a day as needed. Klonopin may have been over used. It is recommended to hold medication if with increase sedation. This should be monitored closely. Will have home health arranged to monitor her medications. This can be further addressed by her PCP. 8. Patient with GERD. At discharge she will continue with Protonix 40 mg daily. 9. Patient with hyperlipidemia. At discharge she will continue with Zocor 20 mg daily. 10. Patient with alcohol use. Recommend cessation. Patient will continue with folic acid and thiamine daily. Fall precautions in place. Patient should not mix alcohol with benzodiazepine. Diet: AHA Activity: Fall precautions Followup: Bill Velez MD [ACTIVE - CAN ADMIT] - 1 Week ([facility] [employer] [facility] supervisor- call to schedule an appointment ) Mickey Frank MD [ACTIVE - CAN ADMIT] - 1 Week (Follow up with Dr. Frank or your preferred primary care physician ) Time spent managing pt's care (in minutes): 55
[2020-01-28] MEDS: NA CHLORIDE 0.9% 1,000 ML IV SCH (13:32)
--- NOTE | 2020-01-29 08:57 | EKG ---
Test Date: 2020-01-27 Test Time: 17:48:29 Sports Statistician: MALIK MEASUREMENT RESULTS: Intervals: Rate: 60 OK: 166 QRSD: 94 QT: 430 QTc: 430 [place]: P: 62 OK: 166 QRS: 74 T: 74 INTERPRETIVE STATEMENTS: Sinus rhythm with premature atrial complexes Minimal voltage criteria for LVH, may be normal variant Borderline ECG Compared to ECG 01/10/2020 04:42:22 Atrial premature complex(es) now present Left ventricular hypertrophy now present Atrial fibrillation no longer present Electronically Signed On 01-29-20 08:54:14 CDT by Bill Velez
--- NOTE | 2020-01-31 06:14 | EKG ---
Test Date: 2020-01-28 Test Time: 10:08:26 [place]: SOFIE MEASUREMENT RESULTS: Intervals: Rate: 100 MO: 204 QRSD: 88 QT: 348 QTc: 448 [place]: P: 87 MO: 204 QRS: 77 T: 238 INTERPRETIVE STATEMENTS: Normal sinus rhythm ST & T wave abnormality, consider inferolateral ischemia Abnormal ECG Compared to ECG 01/27/2020 17:48:29 ST (T wave) deviation now present Possible ischemia now present Atrial premature complex(es) no longer present Left ventricular hypertrophy no longer present Electronically Signed On 01-31-20 06:11:26 CDT by Bill Velez
== END 2020-01-28 15:33 | disposition home or self-care (01) ==
LOC: ER 17:27 → INTOOBSV 20:11 → ERHOLD 20:11 → 4TH 21:23
PROVIDERS: ADMIT Hospitalist; ATTEND Hospitalist
DX: G93.40 Encephalopathy, unspecified (principal); R00.1 Bradycardia, unspecified; J44.9 Chronic obstructive pulmonary disease, unspecified; I48.91 Unspecified atrial fibrillation; I10 Essential (primary) hypertension; M81.0 Age-related osteoporosis without current pathological fracture; F41.8 Other specified anxiety disorders; H35.30 Unspecified macular degeneration; E78.5 Hyperlipidemia, unspecified; E16.2 Hypoglycemia, unspecified; R56.9 Unspecified convulsions; F10.10 Alcohol abuse, uncomplicated; K21.9 Gastro-esophageal reflux disease without esophagitis; Z79.01 Long term (current) use of anticoagulants; Z86.73 Personal history of transient ischemic attack (TIA), and cerebral infarction without residual deficits; Z87.891 Personal history of nicotine dependence; Z20.828 Contact with and (suspected) exposure to other viral communicable diseases
CPT/HCPCS: 96365; 93005 ×2; 87040 ×2; 85025 ×2; 80048; 36415 ×2; 80320; 83735 ×2; 85610 ×2; 80061; 80076; 80307 ×8; 85730; 84443; 81003; 84484 ×3; 84439; 80053; 83880; 70450; 71045; 99285; U0002; J7030 ×2; G0378 ×2

== ENCOUNTER 2020-02-15 20:51 | Emergency (ER) | payer OTHER ==
--- OUTSIDE RECORDS SUMMARY | 2020-02-15 20:54 | XMS REPORT ---
:1945 Author Organization eClinicalWorks Care Team Providers Name Role Phone Charley Gallo Provider Role Unavailable Allergies, Adverse Reactions, Alerts Substance Reaction Event Type codeine Itching/"climbing the regan" Non Drug Al lergy Problems Problem Type Condition Code Onset Dates Condition Statu s Problem Other chronic pain G89.29 Active Problem Depression with anxiety F41.8 Acti ve Problem Reflux K21.9 Active Problem COPD (chronic obstructive pulmonary J44.9 Active disease) Assessment Reflux K21.9 Active Problem Anxiety F41.9 Active Assessment High blood pressure I10 Active Assessment Depression with anxiety F41.8 Acti ve Problem Essential hypertension I10 Activ e Problem Seizures R56.9 Active Problem Memory problem R41.3 Active Problem Depression F32.9 Active Problem Low back pain M54.5 Active Problem History of carotid endarterectomy Z98.890 Active Problem High blood pressure I10 Active Assessment Hospital discharge follow-up Z09 Active Problem Gastroesophageal reflux disease, K21.9 Active esophagitis presence not specified Problem Chronic obstructive pulmonary J44.9 Active disease, unspecified COPD type Assessment Cachectic R64 Active Problem Hyperlipidemia, unspecified E78.5 Active hyperlipidemia type Problem High cholesterol E78.00 Active Assessment Chronic atrial fibrillation I48.20 Active Problem Atherosclerosis of left carotid I65.22 Active artery Problem Dry mouth R68.2 Active Medications Medication Code Code Instructions Start End Status Dosage System Date Date Omeprazole ND 42252757882 40 MG Orally Active 1 ca psule Once a day Simvastatin ND 12778782346 20 MG Orally Active 1 t ablet in Once a day the evening Clonazepam ND 85698438555 0.5 MG Orally Active 1 t ablet at Once a day as bedtime needed Duloxetine HCl ND 42977257214 20 MG Orally Active 1 capsule Twice a day Restasis ND 20310487714 0.05 % Active 1 drop into Ophthalmic affected Twice a day eye Gabapentin ND 90248457100 100 MG Orally December Active 1 c apsule Twice a day 2019 as needed for severe pain Amlodipine [facility] 40310692410 5 MG Orally Active 1 tab let Besylate Once a day Combivent [facility] 39543806622 20MCG /100 MCG Active 1 p uff as Respimat Oral Inhalation needed 4 times daily HydrOXYzine HCl [facility] 42233115457 25 MG Orally December Active 1 tablet as every 8 hrs 2019 needed for itching Amitriptyline [facility] 05928857447 50 MG Orally Active 1 tablet at HCl Once a day bedtime Acyclovir [facility] 71229862014 800 MG Orally December Active 1 ta blet Five times 2019 daily Metoprolol [facility] 52316347330 25 MG Orally Active 1 ta blet Tartrate Twice a day with food Levetiracetam [facility] 94191447364 500 MG Orally Active 1 tablet Twice a day Gabapentin [facility] 15249120544 300 MG Orally November Active 1 c apsule Once a day in 2019 as needed evening for pain Stiolto Respimat [facility] 01295152633 2.5mcg/2.5mcg Activ e 2 puffs inhaled Once a day Results No Known Results Summary Purpose eClinicalWorks Submission
--- OUTSIDE RECORDS SUMMARY | 2020-02-15 20:54 | XMS REPORT | Continuity of Care Document ---
:1945 Author Organization [facility] t Address [address] [place] [address] Care Team Providers Name Role Phone Unavailable Unavailable Unavailable Problems Condition Condition Condition Status Onset Resolution Last Treating Co mments Source Name Details Category Date Date Treatment Clinician Date High High Problem Active [facility] High blood High blood Problem Active [facility] Low back Low back Problem [facility] Anxiety Anxiety Problem [facility] Depression Depression Problem [facility] Chronic Chronic Problem Active [facility] chronic [facility] Seizures Seizures Problem [facility] Memory Memory Problem Active [facility] problem problem [facility] Depression Depression Problem Active [facility] with with [facility] anxiety anxiety [facility] Dry mouth Dry mouth Problem Active [facility] 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 History of History of Problem Active [facility] carotid carotid [facility] endarterec endarterec Ca daphne perla l [facility] Hyperlipid Hyperlipid Problem Active [facility] emia, emia, [facility] - unspecifie unspecifie Me moria d d l hyperlipid hyperlipid Ou tpati emia type emia type ent Clinics Allergies, Adverse Reactions, Alerts Allergy Allergy Status Severity Reaction(s) Onset Inactive Treating Comm ents Source Name Type Date Date Clinician codeine Adverse Active Itching/"cli [facility] Reaction mbing the [facility]" [facility] Medications Ordered Filled Start Stop Current Ordering Indication Dosage Frequency Signature Comments Components Source Medication Medication Date Date Medication? Clinician (SIG) Name Name Gabapentin Gabapentin Yes Libra [address] [facility] [place] as needed [facility] - 00:[facility]: for severe [facility]oria 00 pain l [facility] Acyclovir Acyclovir Yes Libra [address] [facility]: [facility] 00 l [facility] HydrOXYzine HydrOXYzine Yes Libra [address] [facility] HCl HCl 4-20 [place] as needed [facility] - 00:[facility]: for [facility] 00 itching l [facility] Gabapentin Gabapentin Yes Libra [address] [facility]11 [place] as needed [facility]: for pain [facility] Amitriptyli Amitriptyli Yes Libra [address] [facility] ne HCl ne HCl [place] at bedtime [facility] Simvastatin Simvastatin Yes Libra [address] [facility] [place] in the [facility] - evening [facility] Combivent Combivent Yes Libra [address] [facility] Respimat Respimat [place] needed [facility] Duloxetine Duloxetine Yes Libra [address] [facility] HCl HCl [facility] Clonazepam Clonazepam Yes Libra [address] [facility] [place] at bedtime [facility] - [facility] Restasis Restasis Yes Libra [address] [facility] into [facility] - affected [facility]oria eye l [facility] Levetiracet Levetiracet Yes Libra [address] [facility] am am [place] Amlodipine Amlodipine Yes Libra [address] [facility] Besylate Besylate [place] Caridad [facility] Clinics Stiolto Stiolto Yes Libra 2 puffs [facility] Respimat Respimat [facility] Metoprolol Metoprolol Yes Libra [address] [facility] Tartrate Tartrate [place] with food [facility] Outpat[facility] ent Clinics Omeprazole Omeprazole Yes Libra [address] [facility] [place] [facility] Procedures This patient has no known procedures. Encounters Start End Encounter Admission Attending Care Care Encounter Source Date/Time Date/Time Type Type Clinicians Facility Department ID 2020-02-09 2020-02-09 [facility] [id number] [facility] 16:33[facility]00 16:33:00 [facility] Out[facility] Clinics 2020-02-01 2020-02-01 [facility] [id number] [facility] 09:00:00 09:00:00 [facility] Out[facility] Clin[facility] 2019-12-25 2019-12-25 [facility] [id number] 10:00:00 10:00:00 [facility] Out[facility] Clinics 2019-11-24 2019-11-24 [facility] [id number] [facility] 08:25:00 08:25:00 [facility] Out[facility] Clinics 2019-11-15 2019-11-15 [facility] [id number] [facility] 10:30:00 10:30:00 [facility] Clin[facility] Results This patient has no known results.
--- OUTSIDE RECORDS SUMMARY | 2020-02-15 20:54 | XMS REPORT ---
[...] End Date Status Dos age Date Gabapentin [facility] 88877607232 300 MG Orally November 14, Active 1 capsule Once a day in 2019 as needed evening for pain Results No Known Results Summary Purpose eClinicalWorks Submission
--- OUTSIDE RECORDS SUMMARY | 2020-02-15 20:54 | XMS REPORT ---
:1945 [facility] Team Providers Name Role Phone Libra [...] Problem High blood pressure I10 Active Assessment Gastroesophageal reflux disease, K21.9 Active esophagitis presence not specified Problem Gastroesophageal reflux disease, K21.9 Active esophagitis presence not specified Problem Chronic obstructive pulmonary J44.9 Active disease, unspecified COPD type Problem Hyperlipidemia, unspecified E78.5 Active hyperlipidemia type Problem High cholesterol E78.00 Active Problem Atherosclerosis of left carotid I65.22 Active artery Problem Dry mouth R68.2 Active Medications Medication Code Code Instructions Start End Status Dosage System Date Date Amlodipine ND 20490033027 5 MG Orally Active 1 tab let Besylate Once a day Metoprolol ND 27354644506 25 MG Orally Active 1 ta blet Tartrate Twice a day with food Duloxetine HCl ND 84143546176 20 MG Orally Active 1 capsule Twice a day Clonazepam ND 39578756106 0.5 MG Orally Active 1 t ablet at Once a day as bedtime needed Gabapentin ND 10611325519 300 MG Orally November Active 1 c apsule Once a day in 2019 as needed evening for pain Acyclovir ND 23579922234 800 MG Orally December Active 1 ta blet Five times 2019 daily Omeprazole ND 59450709081 20 MG Orally Active 1 ca psule Once a day Levetiracetam ND 77348438127 500 MG Orally Active 1 tablet Twice a day Simvastatin ND 92895008560 20 MG Orally Active 1 t ablet in Once a day the evening Stiolto Respimat ND 95396104834 2.5mcg/2.5mcg Activ e 2 puffs inhaled Once a day Combivent ND 19235920480 20MCG /100 MCG Active 1 p uff as Respimat Oral Inhalation needed 4 times daily Gabapentin ND 77639974099 100 MG Orally December Active 1 c apsule Twice a day 2019 as needed for severe pain Amitriptyline [facility] 56788976239 50 MG Orally Active 1 tablet at HCl Once a day bedtime HydrOXYzine HCl [facility] 85221119725 25 MG Orally December Active 1 tablet as every 8 hrs 2019 needed for itching Restasis [facility] 91287882815 0.05 % Active 1 drop into Ophthalmic affected Twice a day eye Results No Known Results Summary Purpose eClinicalWorks Submission
--- OUTSIDE RECORDS SUMMARY | 2020-02-15 20:54 | XMS REPORT ---
:1945 [facility] Team Providers Name [...] Status Dosage System Date Date Amitriptyline [facility] 92581234773 50 MG Orally Active 1 tablet at HCl Once a day bedtime Omeprazole ND 45022835684 40 MG Orally Active 1 ca psule Once a day Simvastatin ND 81787234521 20 MG Orally Active 1 t ablet in Once a day the evening Metoprolol [facility] 24275021526 50 MG Orally Active 1 ta blet Tartrate Twice a day Combivent [facility] 93290975571 20MCG /100 MCG Active 1 p uff as Respimat Oral Inhalation needed 4 times daily Duloxetine HCl [facility] 39023974298 20 MG Orally Active 1 capsule Twice a day Clonazepam [facility] 28932109220 0.5 MG Orally Active 1 t ablet at Once a day as bedtime needed Restasis [facility] 50153684742 0.05 % Active 1 drop into Ophthalmic affected Twice a day eye Levetiracetam [facility] 97470720046 500 MG Orally Active 1 tablet Twice a day Amlodipine [facility] 13720281036 5 MG Orally Active 1 tab let Besylate Once a day Stiolto Respimat [facility] 63097910678 2.5mcg/2.5mcg Activ e 2 puffs inhaled Once a day Gabapentin [facility] 16460468344 100 MG Orally November Active 1 c apsule Once a day in 2019 as needed evening for pain Results No Known Results Summary Purpose eClinicalWorks Submission
--- OUTSIDE RECORDS SUMMARY | 2020-02-15 20:54 | XMS REPORT ---
[...] End Date Status Dosage System Date Metoprolol [facility] 64950201344 50 MG Orally Active 1 ta blet Tartrate Twice a day Acetaminophen ND 24875414198 500 MG Orally December Active 1-2 tablet every 6 hrs; 2019 as needed not to exceed 6 for tablets in 24 pain/fever hours Omeprazole ND 88503815892 40 MG Orally Active 1 ca psule Once a day Clonazepam ND 73686094839 0.5 MG Orally Active 1 t ablet Once a day as at bedtime needed Levetiracetam ND 86357817633 500 MG Orally Active 1 tablet Twice a day Amitriptyline ND 62387019832 50 MG Orally Active 1 tablet HCl Once a day at bedtime Gabapentin ND 94403860719 100 MG Orally December Active 1 c apsule Twice a day 2019 as needed for severe pain Stiolto Respimat [facility] 63338246240 2.5mcg/2.5mcg Activ e 2 puffs inhaled Once a day Amlodipine ND 92926089379 5 MG Orally Active 1 tab let Besylate Once a day Duloxetine HCl ND 05850372657 20 MG Orally Active 1 capsule Twice a day Acyclovir ND 09586519257 800 MG Orally December Active 1 ta blet Five times 2019 daily Combivent [facility] 25212117858 20MCG /100 MCG Active 1 p uff as Respimat Oral Inhalation needed 4 times daily Gabapentin ND 48542812463 300 MG Orally November Active 1 c apsule Once a day in 2019 as needed evening for pain Restasis [facility] 18197027983 0.05 % Active 1 drop Ophthalmic into Twice a day affected eye HydrOXYzine HCl [facility] 85188600534 25 MG Orally December Active 1 tablet every 8 hrs 2019 as needed for itching Simvastatin ND 10147822690 20 MG Orally Active 1 t ablet Once a day in the evening Results No Known Results Summary Purpose eClinicalWorks Submission
[2020-02-15] MEDS ORDERED: MEPERIDINE HCL 50 MG/ML ONE (22:18)
[2020-02-15] MEDS ORDERED: dexAMETHasone 10 MG/ML VIAL ONE (22:18)
--- NOTE | 2020-02-15 23:33 | EDPHYS ---
Physician Documentation [facility] Name: Shilpa Richardson Age: 74 yrs Sex: Female : 1945 Arrival Date: 02/15/2020 Time: 20:52 Bed 15 Private MD: ED Physician Evaristo Zendejas HPI: 02/14 21:42 This 74 yrs old Female presents to ER via Ambulatory with complaints of Neck rn Pain, <24hrs Old. 21:42 The patient or guardian complains of pain, that is chronic. The symptoms are located at rn the cervical spine. Onset: The symptoms/episode began/occurred 10 year(s) ago. Associated signs and symptoms: The patient has no apparent associated signs or symptoms, Pertinent negatives: fever, headache, bowel incontinence, weakness. The pain does not radiate. Modifying factors: The symptoms are alleviated by nothing. the symptoms are aggravated by movement. Severity of symptoms: At their worst the symptoms were moderate, in the emergency department the symptoms are unchanged. The patient has experienced similar episodes in the past, chronically. Reports chronic neck and back pain, states for atleast "10 years", no new trauma or symptoms, no bowel incontinence, no weakness, no chest pain/sob/cough/vomiting. No urinary symptoms. Reports multiple MRIs in past and evaluations without definitive treatment or diagnosis offered. She denies any new problems, just tired of the pain. Has tried baclofen in past with some improvement. . Historical: - Allergies: 21:02 adhesive tape; ll1 21:02 Codeine; ll1 21:02 Diphenhydramine; ll1 21:02 Erythromycin; ll1 21:02 PENICILLINS; ll1 21:02 Tape; ll1 - PMHx: 21:02 Depression; Anxiety; Alcoholism; Carotid blockage; COPD; Chronic pain; ADD/ADHD; ll1 Hypertension; - Immunization history:: Adult Immunizations up to date. - Social history:: Smoking status: Patient denies any tobacco usage or history of. Patient/guardian denies using alcohol, street drugs, tobacco products. - Family history:: not pertinent. - Hospitalizations: : The patient was recently seen at [facility]. ROS: 21:44 Constitutional: Negative for fever, chills, and weight loss, Eyes: Negative for injury, rn pain, redness, and discharge, Neck: Negative for injury, and swelling, Cardiovascular: Negative for chest pain, palpitations, and edema, Respiratory: Negative for shortness of breath, cough, wheezing, and pleuritic chest pain, Abdomen/GI: Negative for abdominal pain, nausea, vomiting, diarrhea, and constipation, Back: + low back pain : Negative for injury, bleeding, discharge, and swelling, MS/Extremity: Negative for injury and deformity, Skin: Negative for injury, rash, and discoloration, Neuro: Negative for headache, weakness, and seizure. Exam: 21:44 Constitutional: This is a well developed, well nourished patient who is awake, alert, rn and in no acute distress. LAying on ice pack at neck level. Head/Face: Normocephalic, atraumatic. Neck: Trachea midline, no masses palpated, and no cervical lymphadenopathy. No Meningismus. Cardiovascular: Regular rate and rhythm. No pulse deficits. Respiratory: No increased work of breathing, no retractions or nasal flaring. Abdomen/GI: soft, non-tender MS/ Extremity: Pulses equal, no cyanosis. Neurovascular intact. Full, normal range of motion. Equal circumference. Neuro: Awake and alert, GCS 15, oriented to person, place, time, and situation. Cranial nerves II-XII grossly intact. Motor strength 5/5 in all extremities. Sensory grossly intact. Vital Signs: 21:00 BP 139 / 62; Pulse 80; Resp 17; Temp 97.3; Pulse Ox 94% on R/A; Pain 7/10; ll1 23:00 BP 128 / 60; Pulse 82; Resp 18; Pulse Ox 96% on R/A; vc MDM: 20:53 Patient medically screened. rn 23:30 Differential diagnosis: arthritis, Cervical Discogenic Pain Cervical Facet Syndrome rn Cervical Raiculopathy cervical strain, Degenerative Disc Disease torticollis, chronic pain. Data reviewed: vital signs, nurses notes, old medical records, and as a result, I will discharge patient. Counseling: I had a detailed discussion with the patient and/or guardian regarding: the historical points, exam findings, and any diagnostic results supporting the discharge/admit diagnosis, the need for outpatient follow up, to return to the emergency department if symptoms worsen or persist or if there are any questions or concerns that arise at home. Response to treatment: the patient's symptoms have mildly improved after treatment, and as a result, I will discharge patient. Special discussion: I discussed with the patient/guardian in detail that at this point there is no indication for admission to the hospital. It is understood, however, that if the symptoms persist or worsen the patient needs to return immediately for re-evaluation. Based on the history and exam findings, there is no indication for further emergent testing or inpatient evaluation. I discussed with the patient/guardian the need to see the primary care provider for further evaluation of the symptoms. ED course: No changes neurologically, + chronic neck and back pain without acute changes, improved after demerol, will dc home with steroids and muscle relaxers, has pcp appt in AM. . Administered Medications: 22:19 Drug: Demerol - Meperidine 12.5 mg {Note: given IM in left deltoid per MD .} Route: vc IVP; Site: Other; 23:00 Follow up: Response: No adverse reaction; Pain is decreased vc 22:20 Drug: Decadron - Dexamethasone 10 mg {Note: Administered IM in right deltoid..} Route: vc IVP; Site: Other; 23:00 Follow up: Response: No adverse reaction; Pain is decreased vc Disposition: 02/15/20 23:32 Discharged to Home. Impression: Chronic pain, not elsewhere classified. - Condition is Stable. - Discharge Instructions: Chronic Pain. - Prescriptions for Medrol (Lex) 4 mg Oral Tablets, Dose Pack - take 1 tablet by ORAL route as directed - follow package instructions; 1 packet. Cyclobenzaprine 5 mg Oral Tablet - take 1 tablet by ORAL route every 8-12 hours As needed; 15 tablet. - Medication Reconciliation Form, Thank You Letter, Antibiotic Education, Prescription Opioid Use form. - Follow up: Private Physician; When: Tomorrow; Reason: Recheck today's complaints, Re-evaluation by your physician. - Problem is chronic. - Symptoms have improved. Signatures: Evaristo Zendejas MD MD rn Calcote, Vanessa, RN RN Godwin Velasco RN RN ll1 Corrections: (The following items were deleted from the chart) 23:52 23:32 02/15/2020 23:32 Discharged to Home. Impression: Chronic pain, not elsewhere vc classified. Condition is Stable. Forms are Medication Reconciliation Form, Thank You Letter, Antibiotic Education, Prescription Opioid Use. Follow up: Private Physician; When: Tomorrow; Reason: Recheck today's complaints, Re-evaluation by your physician. Problem is chronic. Symptoms have improved. rn
--- NOTE | 2020-02-15 23:33 | ER ---
Nurse's Notes [facility] Name: Shilpa Richardson Age: 74 yrs Sex: Female : 1945 Arrival Date: 02/15/2020 Time: 20:52 Bed 15 Private MD: Diagnosis: Chronic pain, not elsewhere classified Presentation: 02/14 21:00 Chief complaint: Patient states: Chronic neck and back pain, got worse today. No trauma ll1 or falls recently. Coronavirus screen: Proceed with normal triage. Patient denies a cough. Patient denies shortness of breath or difficulty breathing. Patient denies measured and/or subjective temperature greater than 100.4F prior to today's visit. Patient denies travel on a cruise ship or to a country the [facility] currently lists as an affected area. Patient denies contact with known and/or suspected case of COVID-19. Ebola Screen: Patient denies travel to an Ebola-affected area in the 21 days before illness onset. Initial Sepsis Screen: Does the patient meet any 2 criteria? No. Patient's initial sepsis screen is negative. Does the patient have a suspected source of infection? No. Patient's initial sepsis screen is negative. Risk Assessment: Do you want to hurt yourself or someone else? Patient reports no desire to harm self or others. Onset of symptoms was February 15, 2020. 21:00 Method Of Arrival: Ambulatory ll1 21:00 Acuity: PATRICIA 3 ll1 Triage Assessment: 21:00 General: Appears in no apparent distress. Behavior is calm, cooperative, appropriate vc for age. Historical: - Allergies: 21:02 adhesive tape; ll1 21:02 Codeine; ll1 21:02 Diphenhydramine; ll1 21:02 Erythromycin; ll1 21:02 PENICILLINS; ll1 21:02 Tape; ll1 - PMHx: 21:02 Depression; Anxiety; Alcoholism; Carotid blockage; COPD; Chronic pain; ADD/ADHD; ll1 Hypertension; - Immunization history:: Adult Immunizations up to date. - Social history:: Smoking status: Patient denies any tobacco usage or history of. Patient/guardian denies using alcohol, street drugs, tobacco products. - Family history:: not pertinent. - Hospitalizations: : The patient was recently seen at [facility]. Screenin:00 Abuse screen: Denies threats or abuse. Nutritional screening: No deficits noted. vc Tuberculosis screening: No symptoms or risk factors identified. Fall Risk None identified. Assessment: 21:00 General: Appears in no apparent distress. uncomfortable, Behavior is calm, cooperative, vc appropriate for age. Pain: Complains of pain in left sternocleidomastoid and neck Pain does not radiate. Pain currently is 10 out of 10 on a pain scale. Neuro: Level of Consciousness is awake, alert, obeys commands, Oriented to person, place, time. Cardiovascular: Capillary refill < 3 seconds Patient's skin is warm and dry. Respiratory: Airway is patent Respiratory effort is even, unlabored, Respiratory pattern is regular, symmetrical. GI: No signs and/or symptoms were reported involving the gastrointestinal system. : No signs and/or symptoms were reported regarding the genitourinary system. Musculoskeletal: Circulation, motion, and sensation intact. Reports weakness in cervical spine. 22:00 Reassessment: Patient appears in no apparent distress at this time. Patient and/or vc family updated on plan of care and expected duration. Pain level reassessed. Patient states symptoms have not improved. 23:00 Reassessment: Patient appears in no apparent distress at this time. Patient and/or vc family updated on plan of care and expected duration. Pain level reassessed. Patient states symptoms have improved. Patient states symptoms have not improved. Vital Signs: 21:00 BP 139 / 62; Pulse 80; Resp 17; Temp 97.3; Pulse Ox 94% on R/A; Pain 7/10; ll1 23:00 BP 128 / 60; Pulse 82; Resp 18; Pulse Ox 96% on R/A; vc ED Course: 20:52 Patient arrived in ED. cf2 20:53 Evaristo Zendejas MD is Attending Physician. rn 20:59 Arleen Tafoya RN is Primary Nurse. vc 21:01 Triage completed. ll1 21:02 Arm band placed on Patient placed in an exam room, on a stretcher. ll1 21:02 Patient has correct armband on for positive identification. Bed in low position. Call vc light in reach. Side rails up X2. Pulse ox on. NIBP on. 22:50 No provider procedures requiring assistance completed. Patient did not have IV access vc during this emergency room visit. Administered Medications: 22:19 Drug: Demerol - Meperidine 12.5 mg {Note: given IM in left deltoid per MD .} Route: vc IVP; Site: Other; 23:00 Follow up: Response: No adverse reaction; Pain is decreased vc 22:20 Drug: Decadron - Dexamethasone 10 mg {Note: Administered IM in right deltoid..} Route: vc IVP; Site: Other; 23:00 Follow up: Response: No adverse reaction; Pain is decreased vc Outcome: 23:32 Discharge ordered by . rn 23:50 Discharged to home via wheelchair. vc 23:50 Condition: improved 23:50 Discharge instructions given to patient, Instructed on discharge instructions, follow up and referral plans. medication usage, Demonstrated understanding of instructions, follow-up care, medications, Prescriptions given X 2. 23:52 Patient left the ED. vc Signatures: Evaristo Zendejas MD MD rn Frazier, Celesta cf2 Arleen Tafoya RN RN vc Godwin Calderon RN RN ll1 Corrections: (The following items were deleted from the chart) 21:06 21:00 Chief complaint: Patient states: Neck pain started today. No trauma or falls ll1 recently. ll1
[2020-02-15 23:58] VITALS: BP 139/62; TEMP 97.3; O2SAT 94
== END 2020-02-15 23:52 | disposition home or self-care (01) ==
LOC: ER 20:51
DX: G89.29 Other chronic pain (principal); F10.20 Alcohol dependence, uncomplicated; I10 Essential (primary) hypertension; Z88.0 Allergy status to penicillin; Z88.1 Allergy status to other antibiotic agents; Z88.5 Allergy status to narcotic agent; Z91.048 Other nonmedicinal substance allergy status
CPT/HCPCS: 96375; 96374; 99283; J1100; J2175

== ENCOUNTER 2020-03-01 21:33 | Emergency (ER) | payer OTHER ==
--- OUTSIDE RECORDS SUMMARY | 2020-03-01 21:36 | XMS REPORT ---
:1945 [facility] Care Team Providers Name Role Phone Libra [...] End Status Dosage System Date Date Amitriptyline [facility] 92576355504 50 MG Orally Active 1 tablet at HCl Once a day bedtime Omeprazole ND 07634871649 40 MG Orally Active 1 ca psule Once a day Simvastatin ND 96198216960 20 MG Orally Active 1 t ablet in Once a day the evening Metoprolol [facility] 56454716577 50 MG Orally Active 1 ta blet Tartrate Twice a day Combivent [facility] 81105379545 20MCG /100 MCG Active 1 p uff as Respimat Oral Inhalation needed 4 times daily Duloxetine HCl [facility] 12127633459 20 MG Orally Active 1 capsule Twice a day Clonazepam [facility] 09715584835 0.5 MG Orally Active 1 t ablet at Once a day as bedtime needed Restasis [facility] 72676389944 0.05 % Active 1 drop into Ophthalmic affected Twice a day eye Levetiracetam [facility] 87222065487 500 MG Orally Active 1 tablet Twice a day Amlodipine [facility] 85806527252 5 MG Orally Active 1 tab let Besylate Once a day Stiolto Respimat [facility] 67962468540 2.5mcg/2.5mcg Activ e 2 puffs inhaled Once a day Gabapentin [facility] 58088158277 100 MG Orally November Active 1 c apsule Once a day in 2019 as needed evening for pain Results No Known Results Summary Purpose eClinicalWorks Submission
--- OUTSIDE RECORDS SUMMARY | 2020-03-01 21:36 | XMS REPORT | Continuity of Care Document ---
:[address] [facility] t Address [address] [place] [address] Care Team Providers Name Role Phone Unavailable Unavailable Unavailable Problems Condition Condition Condition Status Onset Resolution Last Treating Co mments Source Name Details Category Date Date Treatment Clinician Date High High Problem Active [facility] cholester[facility] cholestero Caridad kes - l l [facility] High blood High blood Problem Active [facility] Low back Low back Problem Active [facility] Anxiety Anxiety Problem [facility] Depression Depression Problem Active [facility] Chronic Chronic Problem Active [facility] obstructiv obstructiv Caridad kes - e e Memoria pulmonary pulmonary l disease, disease, Outpat i unspecifie unspecifie en t d COPD d COPD Clinics type type Reflux Reflux Problem [facility] Other Other Problem Active [facility] chronic chronic [facility] pain pain [facility] Seizures Seizures Problem Active [facility] Memory Memory Problem Active [facility] problem problem [facility] Depression Depression Problem Active [facility] with with [facility] - anxiety anxiety [facility] Dry mouth Dry mouth Problem Active [facility] 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 Outpati ent Clinics History of History of Problem Active [facility] carotid carotid [facility] - endarterec endarterec Me moria minda minda l [facility] Hyperlipid Hyperlipid Problem Active [facility] emia, emia, [facility] - unspecifie unspecifie Me moria d d l hyperlipid hyperlipid Ou tpati emia type emia type ent Clinics Lumbago Lumbago Problem Active [facility] with with [facility] - sciatica, sciatica, Raghavendra shereen unspecifie unspecifie l d side d side [facility] Allergies, Adverse Reactions, Alerts Allergy Allergy Status Severity Reaction(s) Onset Inactive Treating Comm ents Source Name Type Date Date Clinician codeine Adverse Active Itching/"cli [facility] Reaction mbing the [facility] - regan" [facility] Medications Ordered Filled Start Stop Current Ordering Indication Dosage Frequency Signature Comments Components Source Medication Medication Date Date Medication? Clinician (SIG) Name Name Gabapentin Gabapentin Yes Libra [address] [facility] 4[facility]20 [place] as needed [facility] - 00:00: for severe Memoria 00 pain l [facility] Acyclovir Acyclovir Yes Libra [address] [facility] [place] [facility] - 00:[facility]: Memoria 00 l [facility] HydrOXYzine HydrOXYzine Yes Libra [address] HCl HCl 4-20 [place] as needed [facility] - 00:00: for Memoria 00 itching l [facility] Gabapentin Gabapentin Yes Libra [address] [facility] 3[facility]11 [place] as needed [facility] - 00:00: for pain Memoria 00 l [facility] Amitriptyli Amitriptyli Yes Libra [address] [facility] ne HCl ne HCl [place] at bedtime [facility] Simvastatin Simvastatin Yes Libra [address] [facility] [place] in the [facility] - evening [facility]oria l [facility] Combivent Combivent Yes Libra [address] [facility] Respimat Respimat [place] needed [facility] Duloxetine Duloxetine Yes Libra [address] HCl HCl Mill[facility] l [facility] Clonazepam Clonazepam Yes Libra [address] [facility] [place] at bedtime [place] Restasis Restasis Yes Libra [address] [facility] [place] into [facility] - affected Memoria eye l [facility] Amlodipine Amlodipine Yes Libra [address] [facility] Besylate Besylate [place] Caridad kes - Memoria l Outpati ent Clinics Stiolto Stiolto Yes Libra 2 puffs [facility] Respimat Respimat [place] Caridad kes - Memoria l Outpati ent Clinics Omeprazole Omeprazole Yes Libra [address] [facility] Levetiracet Levetiracet Yes Libra [address] [facility] am am [place] Metoprolol Metoprolol Yes Libra [address] Tartrate Tartrate [place] with food [facility] Lumigan Lumigan Yes Libra [address] [facility] [place] into [facility] - affected Memoria eye in the l evening Outpati ent Clinics Procedures This patient has no known procedures. Encounters Start End Encounter Admission Attending Care Care Encounter Source Date/Time Date/Time Type Type Clinicians Facility Department ID 2020-02-28 2020-02-28 [place] [place] [id number] [facility] 16[facility]00 16:56:00 [facility] Medicine Outpati ent Clinics 2020-02-25 2020-02-25 Outpatient [place] [id number] 18:47[facility]00 18:47:00 [facility] Medicine Outpati ent Clinics 2020-02-21 2020-02-21 [place] [id number] 10:01:00 10:01:00 [facility] Medicine Medicine Outpati ent Clinics 2020-02-16 2020-02-16 [place] [id number] 11[facility]00:00 11:00:00 [facility] Medicine Medicine Outpati ent Clinics 2020-02-14 2020-02-14 [place] [id number] 18:14:00 18:14:00 [facility] Medicine Medicine Outpati ent Clinics 2020-02-09 2020-02-09 [facility] [id number] 16:33:00 16:33:00 [facility] Medicine Medicine Outpati ent Clinics 2020-02-01 2020-02-01 Outpatient Lexi [facility] [id number] 09:00:00 09:00:00 [facility] Outpati ent Clinics 2019-12-25 2019-12-25 Outpatient Lexi Elliottt [id number] 10:00:00 10:00:00 [facility] Outpati ent Clinics 2019-11-24 2019-11-24 Outpatient Lexi Elliottt [id number] 08:25:00 08:25:00 [facility] Medicine Outpati ent Clinics 2019-11-15 2019-11-15 Outpatient Lexi Hines [id number] 10:30:00 10:30:00 [facility] Outpati ent Clinics Results This patient has no known results.
--- OUTSIDE RECORDS SUMMARY | 2020-03-01 21:37 | XMS REPORT ---
[...] End Date Status Dosage System Date Metoprolol [facility] 78330695102 50 MG Orally Active 1 ta blet Tartrate Twice a day Acetaminophen ND 48632595316 500 MG Orally December Active 1-2 tablet every 6 hrs; 2019 as needed not to exceed 6 for tablets in 24 pain/fever hours Omeprazole ND 13110176645 40 MG Orally Active 1 ca psule Once a day Clonazepam ND 47603263966 0.5 MG Orally Active 1 t ablet Once a day as at bedtime needed Levetiracetam ND 66683393340 500 MG Orally Active 1 tablet Twice a day Amitriptyline ND 56028092779 50 MG Orally Active 1 tablet HCl Once a day at bedtime Gabapentin ND 16571264247 100 MG Orally December Active 1 c apsule Twice a day 2019 as needed for severe pain Stiolto Respimat [facility] 77003446659 2.5mcg/2.5mcg Activ e 2 puffs inhaled Once a day Amlodipine ND 30326008290 5 MG Orally Active 1 tab let Besylate Once a day Duloxetine HCl ND 45809792325 20 MG Orally Active 1 capsule Twice a day Acyclovir ND 48614266978 800 MG Orally December Active 1 ta blet Five times 2019 daily [address] [facility] 91346044463 20MCG /100 MCG Active 1 p uff as Respimat Oral Inhalation needed 4 times daily Gabapentin ND 73797620675 300 MG Orally November Active 1 c apsule Once a day in 2019 as needed evening for pain Restasis [facility] 20244615218 0.05 % Active 1 drop Ophthalmic into Twice a day affected eye HydrOXYzine HCl [facility] 82617543391 25 MG Orally December Active 1 tablet every 8 hrs 2019 as needed for itching Simvastatin ND 96916456308 20 MG Orally Active 1 t ablet Once a day in the evening Results No Known Results Summary Purpose eClinicalWorks Submission
--- OUTSIDE RECORDS SUMMARY | 2020-03-01 21:37 | XMS REPORT ---
:1945 [facility] Care Team Providers Name Role Phone [...] Status Dosage System Date Date Amlodipine ND 53198691138 5 MG Orally Active 1 tab let Besylate Once a day Metoprolol ND 38152833139 25 MG Orally Active 1 ta blet Tartrate Twice a day with food Duloxetine HCl ND 03618421297 20 MG Orally Active 1 capsule Twice a day Clonazepam ND 03442442276 0.5 MG Orally Active 1 t ablet at Once a day as bedtime needed Gabapentin ND 63069930108 300 MG Orally November Active 1 c apsule Once a day in 2019 as needed evening for pain Acyclovir ND 72471089051 800 MG Orally December Active 1 ta blet Five times 2019 daily Omeprazole ND 01009124076 20 MG Orally Active 1 ca psule Once a day Levetiracetam ND 14603287530 500 MG Orally Active 1 tablet Twice a day Simvastatin ND 22194085173 20 MG Orally Active 1 t ablet in Once a day the evening Stiolto Respimat ND 53977040735 2.5mcg/2.5mcg Activ e 2 puffs inhaled Once a day Combivent ND 44595094124 20MCG /100 MCG Active 1 p uff as Respimat Oral Inhalation needed 4 times daily Gabapentin ND 37452385820 100 MG Orally December Active 1 c apsule Twice a day 2019 as needed for severe pain Amitriptyline [facility] 93300888465 50 MG Orally Active 1 tablet at HCl Once a day bedtime HydrOXYzine HCl [facility] 57733207594 25 MG Orally December Active 1 tablet as every 8 hrs 2019 needed for itching Restasis [facility] 16726623674 0.05 % Active 1 drop into Ophthalmic affected Twice a day eye Results No Known Results Summary Purpose eClinicalWorks Submission
--- OUTSIDE RECORDS SUMMARY | 2020-03-01 21:37 | XMS REPORT ---
[...] Active Problem High blood pressure I10 Active Problem Gastroesophageal reflux disease, K21.9 Active esophagitis presence not specified Problem Chronic obstructive pulmonary J44.9 Active disease, unspecified COPD type Problem Hyperlipidemia, unspecified E78.5 Active hyperlipidemia type Problem High cholesterol E78.00 Active Problem Atherosclerosis of left carotid I65.22 Active artery Problem Dry mouth R68.2 Active Medications No Known Medications Results No Known Results Summary Purpose eClinicalWorks Submission
--- OUTSIDE RECORDS SUMMARY | 2020-03-01 21:37 | XMS REPORT ---
[...] Status Dosage System Date Date Omeprazole ND 70933693447 40 MG Orally Active 1 ca psule Once a day Simvastatin ND 22595741156 20 MG Orally Active 1 t ablet in Once a day the evening Clonazepam ND 29925179951 0.5 MG Orally Active 1 t ablet at Once a day as bedtime needed Duloxetine HCl ND 79964121627 20 MG Orally Active 1 capsule Twice a day Restasis ND 68904004349 0.05 % Active 1 drop into Ophthalmic affected Twice a day eye Gabapentin ND 13828566119 100 MG Orally December Active 1 c apsule Twice a day 2019 as needed for severe pain Amlodipine [facility] 83419286549 5 MG Orally Active 1 tab let Besylate Once a day Combivent [facility] 40792940930 20MCG /100 MCG Active 1 p uff as Respimat Oral Inhalation needed 4 times daily HydrOXYzine HCl [facility] 06791150158 25 MG Orally December Active 1 tablet as every 8 hrs 2019 needed for itching Amitriptyline [facility] 91914946246 50 MG Orally Active 1 tablet at HCl Once a day bedtime Acyclovir [facility] 25264967573 800 MG Orally December Active 1 ta blet Five times 2019 daily Metoprolol [facility] 02133527121 25 MG Orally Active 1 ta blet Tartrate Twice a day with food Levetiracetam [facility] 59093688673 500 MG Orally Active 1 tablet Twice a day Gabapentin [facility] 21475873561 300 MG Orally November Active 1 c apsule Once a day in 2019 as needed evening for pain Stiolto Respimat [facility] 60946947250 2.5mcg/2.5mcg Activ e 2 puffs inhaled Once a day Results No Known Results Summary Purpose eClinicalWorks Submission
--- OUTSIDE RECORDS SUMMARY | 2020-03-01 21:38 | XMS REPORT ---
:1945 Author Organization eClinicalWorks Care Team Providers Name Role Phone Libra Eduardo Provider Role Unavailable Allergies No Known Allergies Problems Problem Type Condition Code Onset Dates Condition Statu s Problem Anxiety F41.9 Active Problem Essential hypertension I10 Activ e Problem COPD (chronic obstructive pulmonary J44.9 Active disease) Problem Chronic obstructive pulmonary J44.9 Active disease, unspecified COPD type Problem Gastroesophageal reflux disease, K21.9 Active esophagitis presence not specified Problem Lumbago with sciatica, unspecified M54.40 Active side Problem High blood pressure I10 Active Problem History of carotid endarterectomy Z98.890 Active Problem Atherosclerosis of left carotid I65.22 Active artery Problem Hyperlipidemia, unspecified E78.5 Active hyperlipidemia type Problem Dry mouth R68.2 Active Problem Other chronic pain G89.29 Active Problem High cholesterol E78.00 Active Problem Memory problem R41.3 Active Problem Seizures R56.9 Active Problem Reflux K21.9 Active Problem Low back pain M54.5 Active Problem Depression with anxiety F41.8 Acti ve Problem Depression F32.9 Active Medications No Known Medications Results No Known Results Summary Purpose eClinicalWorks Submission
--- OUTSIDE RECORDS SUMMARY | 2020-03-01 21:38 | XMS REPORT ---
:1945 Author [facility] Care Team Providers Name Role Phone Libra [...] J44.9 Active disease, unspecified COPD type Assessment Lumbago with sciatica, unspecified M54.40 Active side Problem Gastroesophageal reflux disease, K21.9 Active esophagitis presence not specified Assessment Other chronic pain G89.29 Active Assessment Follow-up exam Z09 Active Problem Lumbago with sciatica, unspecified M54.40 Active [...] Acti ve Problem Depression F32.9 Active Medications Medication Code Code Instructions Start End Status Dosage System Date Date Simvastatin ND 34365503770 20 MG Orally Active 1 t ablet in Once a day the evening Stiolto Respimat ND 76598074891 2.5mcg/2.5mcg Activ e 2 puffs inhaled Once a day Acyclovir ND 20811862449 800 MG Orally December Active 1 ta blet Five times 2019 daily Amitriptyline ND 24595816623 50 MG Orally Active 1 tablet at HCl Once a day bedtime Restasis ND 22169429258 0.05 % Active 1 drop into Ophthalmic affected Twice a day eye Gabapentin ND 55256390255 100 MG Orally December Active 1 c apsule Twice a day 2019 as needed for severe pain Clonazepam ND 19883255542 0.5 MG Orally Active 1 t ablet at Once a day as bedtime needed Gabapentin ND 00629352814 300 MG Orally November Active 1 c apsule Once a day in 2019 as needed evening for pain HydrOXYzine HCl ND 13823789329 25 MG Orally December Active 1 tablet as every 8 hrs 2019 needed for itching Omeprazole ND 46734114493 20 MG Orally Active 1 ca psule Once a day Duloxetine HCl [facility] 18030947710 20 MG Orally Active 1 capsule Twice a day Levetiracetam [facility] 96745932953 250 MG Orally Active 1 tablet Twice a day Metoprolol [facility] 29839510233 50 MG Orally Active 1 ta blet Tartrate Twice a day with food Lumigan [facility] 33534336538 0.01 % Active 1 drop into Ophthalmic Once affected a day eye in the evening Combivent [facility] 32329274411 20MCG /100 MCG Active 1 p uff Respimat Oral Inhalation 4 times daily, not to exceed 6 in 24 hrs Amlodipine ND 57057375183 5 MG Orally Active 1 tab let Besylate Once a day Combivent [facility] 19514210926 20MCG /100 MCG Active 1 p uff as Respimat Oral Inhalation needed 4 times daily Restasis ND 04369270360 0.05 % Active 1 drop into Ophthalmic affected Twice a day eye Results No Known Results Summary Purpose eClinicalWorks Submission
[2020-03-01 22:22] LABS: Protime INR 0.81
[2020-03-01 22:33] LABS: Absolute Lymphocytes (CBC) 2.4 K/uL (0.7-4.9); Basophils % 0.8 % (0-1.3); Lymphocytes % 33.2 % (15.3-44.8); MPV 6.9 fL (7.6-11.3); RBC Red Blood Cell Count 3.62 M/uL (3.86-4.86)
[2020-03-01 22:41] LABS: ALT/SGPT 26 U/L (12-78); AST/SGOT 26 U/L (15-37); Albumin 3.4 g/dL (3.4-5.0); Alkaline Phosphatase 113 U/L (45-117); BUN Blood Urea Nitrogen 9 mg/dL (7-18); Bicarbonate 25 mmol/L (21-32); Bilirubin Direct < 0.1 mg/dL (0-0.2); Bilirubin Total 0.3 mg/dL (0.2-1.0); Glucose Level 84 mg/dL (74-106); Magnesium 1.9 mg/dL (1.8-2.4); NT PRO-BNP 488 pg/mL (<125); Protein, Total 6.4 g/dL (6.4-8.2); Sodium Level 135 mmol/L (136-145); Troponin (Emerg Dept Use Only) < 0.02 ng/mL (0.0-0.045)
--- NOTE | 2020-03-01 23:11 | EDPHYS ---
Physician Documentation [facility] Name: Shilpa Richardson Age: 74 yrs Sex: Female : 1945 Arrival Date: 03/01/2020 Time: 21:36 Bed 12 Private MD: ED Physician Micha Frazier HPI: 03/01 22:27 This 74 yrs old Female presents to ER via EMS with complaints of Fall Injury. jr8 22:27 Details of fall: The patient fell from an upright position, while standing. Onset: The jr8 symptoms/episode began/occurred acutely, today. Associated injuries: The patient sustained injury to the head. Severity of symptoms: At their worst the symptoms were mild, in the emergency department the symptoms are unchanged. The patient has not experienced similar symptoms in the past. The patient has not recently seen a physician. Patient reports accidental fall. Had alcoholic beverage tonight . Historical: - Allergies: 21:50 adhesive tape; rv 21:50 Codeine; rv 21:50 Diphenhydramine; rv 21:50 Erythromycin; rv 21:50 PENICILLINS; rv 21:50 Tape; rv - PMHx: 21:50 ADD/ADHD; Alcoholism; Anxiety; Carotid blockage; Chronic pain; COPD; Depression; rv Hypertension; - PSHx: 21:50 Unable to obtain; rv - Immunization history: Last tetanus immunization: unknown. - Social history:: Smoking status: unknown. ROS: 22:27 Eyes: Negative for injury, pain, redness, and discharge, ENT: Negative for injury, jr8 pain, and discharge, Neck: Negative for injury, pain, and swelling, Cardiovascular: Negative for chest pain, palpitations, and edema, Respiratory: Negative for shortness of breath, cough, wheezing, and pleuritic chest pain, Abdomen/GI: Negative for abdominal pain, nausea, vomiting, diarrhea, and constipation, Back: Negative for injury and pain, MS/Extremity: Negative for injury and deformity, Skin: Negative for injury, rash, and discoloration, Neuro: Negative for headache, weakness, numbness, tingling, and seizure. Exam: 22:27 Eyes: Pupils equal round and reactive to light, extra-ocular motions intact. Lids and jr8 lashes normal. Conjunctiva and sclera are non-icteric and not injected. Cornea within normal limits. Periorbital areas with no swelling, redness, or edema. ENT: Nares patent. No nasal discharge, no septal abnormalities noted. Tympanic membranes are normal and external auditory canals are clear. Oropharynx with no redness, swelling, or masses, exudates, or evidence of obstruction, uvula midline. Mucous membranes moist. Neck: Trachea midline, no thyromegaly or masses palpated, and no cervical lymphadenopathy. Supple, full range of motion without nuchal rigidity, or vertebral point tenderness. No Meningismus. Cardiovascular: Regular rate and rhythm with a normal S1 and S2. No gallops, murmurs, or rubs. Normal PMI, no JVD. No pulse deficits. Respiratory: Lungs have equal breath sounds bilaterally, clear to auscultation and percussion. No rales, rhonchi or wheezes noted. No increased work of breathing, no retractions or nasal flaring. Abdomen/GI: Soft, non-tender, with normal bowel sounds. No distension or tympany. No guarding or rebound. No evidence of tenderness throughout. Back: No spinal tenderness. No costovertebral tenderness. Full range of motion. Skin: Warm, dry with normal turgor. Normal color with no rashes, no lesions, and no evidence of cellulitis. MS/ Extremity: Pulses equal, no cyanosis. Neurovascular intact. Full, normal range of motion. Neuro: Awake and alert, GCS 15, oriented to person, place, time, and situation. Cranial nerves II-XII grossly intact. Motor strength 5/5 in all extremities. Sensory grossly intact. Vital Signs: 21:47 BP 118 / 68; Pulse 65; Resp 15; Temp 98.4; Pulse Ox 93% on R/A; Weight 45.36 kg; rv 22:19 BP 100 / 69; Pulse 60; Resp 17; Pulse Ox 94% on R/A; rv 22:30 Pulse Ox 88% on R/A; rv 22:40 BP 121 / 66; Pulse 78; Resp 18; Pulse Ox 100% on 3 lpm NC; rv 23:53 BP 128 / 68; Pulse 76; Resp 16; Temp 98.2; Pulse Ox 94% on R/A; rv [place] Coma Score: 21:47 Eye Response: spontaneous(4). Verbal Response: confused(4). Motor Response: obeys rv commands(6). Total: 14. Trauma Score (Adult): 21:47 Eye Response: spontaneous(1); Verbal Response: confused(1); Motor Response: obeys rv commands(2); Systolic BP: > 89 mm Hg(4); Respiratory Rate: 10 to 29 per min(4); [place] Score: 14; Trauma Score: 12 MDM: 21:52 Patient medically screened. [facility] 23:10 Data reviewed: vital signs, nurses notes, lab test result(s), EKG, radiologic studies, [facility] scan, plain films. Data interpreted: Pulse oximetry: on room air is 100 %. Interpretation: normal. Counseling: I had a detailed discussion with the patient and/or guardian regarding: the historical points, exam findings, and any diagnostic results supporting the discharge/admit diagnosis, lab results, radiology results, the need for outpatient follow up, a family practitioner, to return to the emergency department if symptoms worsen or persist or if there are any questions or concerns that arise at home. ED course: Patient stable. No acute findings on labs or images. Will d/c home to f/u with PCP . 03/01 21:54 Order name: Basic Metabolic Panel [facility] 03/01 21:54 Order name: CBC with Diff; Complete Time: 22:50 [facility] 03/01 21:54 Order name: LFT's; Complete Time: 22:43 [facility] 03/01 21:54 Order name: Magnesium; Complete Time: 22:43 [facility] 03/01 21:54 Order name: NT PRO-BNP; Complete Time: 22:43 [facility] 03/01 21:54 Order name: PT-INR; Complete Time: 22:50 [facility] 03/01 21:53 Order name: CT Head C Spine 03/01 21:54 Order name: Troponin (emerg Dept Use Only); Complete Time: 22:43 [facility] 03/01 21:54 Order name: XRAY Chest (1 view) [facility] 03/01 21:54 Order name: EKG; Complete Time: 21:54 [facility] 03/01 21:54 Order name: Cardiac monitoring; Complete Time: 21:54 [facility] 03/01 21:54 Order name: EKG - Nurse/Tech; Complete Time: 23:00 [facility] 03/01 21:54 Order name: Basic Metabolic Panel; Complete Time: 22:43 [facility] 03/01 22:01 Order name: Glucose, Ancillary Testing; Complete Time: 22:32 [facility] 03/01 21:54 Order name: IV Saline Lock; Complete Time: 21:54 [facility] 03/01 21:54 Order name: Labs collected and sent; Complete Time: 21:54 [facility] 03/01 21:54 Order name: O2 Per Protocol; Complete Time: 21:54 [facility] 03/01 21:54 Order name: O2 Sat Monitoring; Complete Time: 21:54 [facility] Administered Medications: No medications were administered Disposition: 03/02 05:40 Co-signature as Attending Physician, Micha Frazier MD. [email or web address] Disposition: 03/01/20 23:11 Discharged to Home. Impression: Superficial injury of head. - Condition is Stable. - Discharge Instructions: Head Injury, Adult. - Medication Reconciliation Form, Thank You Letter, Antibiotic Education, Prescription Opioid Use form. - Follow up: Private Physician; When: 2 - 3 days; Reason: Recheck today's complaints, Continuance of care, Re-evaluation by your physician. - Problem is new. - Symptoms have improved. Signatures: Dispatcher [employer] [facility] Enrico Fry PA PA jr8 Corwin Wilson RN RN Micha Ortega MD MD [email or web address] Corrections: (The following items were deleted from the chart) 03/01 23:55 23:11 03/01/2020 23:11 Discharged to Home. Impression: Superficial injury of head. rv Condition is Stable. Forms are Medication Reconciliation Form, Thank You Letter, Antibiotic Education, Prescription Opioid Use. Follow up: Private Physician; When: 2 - 3 days; Reason: Recheck today's complaints, Continuance of care, Re-evaluation by your physician. Problem is new. Symptoms have improved. jr8
--- NOTE | 2020-03-01 23:11 | ER ---
Nurse's Notes [facility] Name: Shilpa Richardson Age: 74 yrs Sex: Female : 1945 Arrival Date: 03/01/2020 Time: 21:36 Bed 12 Private MD: Diagnosis: Superficial injury of head Presentation: 03/01 21:38 Chief complaint: EMS states: PATIENT HAD A DRINK TONIGHT ACCORDING TO THE SISTER. rv PATIENT FELL FROM STANDING. HURTING HER RIGHT ARM, LOWER BACK, AND BACK OF THE HEAD. ABRASIONS ON THE RIGHT ARM. Care prior to arrival: None. Mechanism of Injury: Fall from standing position. Trauma event details: Injury occurred in the [facility], Injury occurred: at home. Injury occurred: March 01, 2020 Injury occurred at: 21:00. 21:38 Acuity: PATRICIA 2 rv 21:38 Method Of Arrival: EMS: [facility] rv 21:49 Coronavirus screen: Proceed with normal triage. Ebola Screen: No symptoms or risks rv identified at this time. Initial Sepsis Screen: Does the patient meet any 2 criteria? No. Patient's initial sepsis screen is negative. Does the patient have a suspected source of infection? No. Patient's initial sepsis screen is negative. Risk Assessment: Do you want to hurt yourself or someone else? Patient reports no desire to harm self or others. Onset of symptoms was March 01, 2020 at 21:00. Trauma Activation: Alert Physician: ED Physician; Name: JOANNE; Notified At: 21:51; Arrived At: 21:51 Physician: General Surgeon; Name: ; Notified At: 21:51; Arrived At: Physician: Radiology; Name: CAESAR; Notified At: 21:51; Arrived At: Physician: Respiratory; Name: ; Notified At: 21:51; Arrived At: Physician: Lab; Name: ; Notified At: 21:51; Arrived At: Historical: - Allergies: 21:50 adhesive tape; rv 21:50 Codeine; rv 21:50 Diphenhydramine; rv 21:50 Erythromycin; rv 21:50 PENICILLINS; rv 21:50 Tape; rv - PMHx: 21:50 ADD/ADHD; Alcoholism; Anxiety; Carotid blockage; Chronic pain; COPD; Depression; rv Hypertension; - PSHx: 21:50 Unable to obtain; rv - Immunization history: Last tetanus immunization: unknown. - Social history:: Smoking status: unknown. Screenin:47 Abuse screen: CONFUSED. Tuberculosis screening: No symptoms or risk factors identified. rv 21:49 Nutritional screening: No deficits noted. Fall Risk Fall in past 12 months (25 points). rv Secondary diagnosis (15 points) CONFUSED. IV access (20 points). Ambulatory Aid- Crutches/Cane/Walker (15 pts). Gait- Weak (10 pts.). Mental Status- Overestimates/Forgets Limitations (15 pts.). Total Solorzano Fall Scale indicates High Risk Score (45 or more points). Fall prevention measures have been instituted. Side Rails Up X 2 Frequent Obs/Assessments Occuring As available patient and family educated on Fall Prevention Program and Strategies. Primary Survey: 21:44 NO uncontrolled hemorrhage observed. Breathing/Chest: Respiratory pattern: regular. rv Circulation: Cardiac rhythm: sinus rhythm. Disability Alert. Exposure/Environment: There is no evidence of uncontrolled external bleeding. No obvious injuries are noted at this time. Secondary Survey: 21:44 HEENT: Head Other PAIN ON THE BACK OF THE HEAD. NO HEMATOMA OR ABRASION SEEN. rv Gastrointestinal: No deficits noted. : No signs and/or symptoms were reported regarding the genitourinary system. Musculoskeletal: Range of motion: intact in all extremities. Injury Description: Abrasion sustained to right arm. Assessment: 21:41 General: Appears comfortable, Behavior is calm, cooperative. Pain: Complains of pain in rv scalp, back and right arm. Neuro: Level of Consciousness is awake, obeys commands, confused, Oriented to person. EENT: No signs and/or symptoms were reported regarding the EENT system. Cardiovascular: Patient's skin is warm and dry. Rhythm is atrial fibrillation. Respiratory: Airway is patent Respiratory effort is even, unlabored, Breath sounds are clear bilaterally. Derm: Skin has skin tears on RIGHT ARM. Musculoskeletal: Range of motion: intact in all extremities, Reports pain in back and right arm. 23:55 Reassessment: Patient appears in no apparent distress at this time. pt ambulatory with sg assist to the wheelchair with EMS for pt transport back to home, pt left the ED in stable condition at this time. Vital Signs: 21:47 BP 118 / 68; Pulse 65; Resp 15; Temp 98.4; Pulse Ox 93% on R/A; Weight 45.36 kg; rv 22:19 BP 100 / 69; Pulse 60; Resp 17; Pulse Ox 94% on R/A; rv 22:30 Pulse Ox 88% on R/A; rv 22:40 BP 121 / 66; Pulse 78; Resp 18; Pulse Ox 100% on 3 lpm NC; rv 23:53 BP 128 / 68; Pulse 76; Resp 16; Temp 98.2; Pulse Ox 94% on R/A; rv [place] Coma Score: 21:47 Eye Response: spontaneous(4). Verbal Response: confused(4). Motor Response: obeys rv commands(6). Total: 14. Trauma Score (Adult): 21:47 Eye Response: spontaneous(1); Verbal Response: confused(1); Motor Response: obeys rv commands(2); Systolic BP: > 89 mm Hg(4); Respiratory Rate: 10 to 29 per min(4); [place] Score: 14; Trauma Score: 12 ED Course: 21:36 Patient arrived in ED. cl3 21:38 Corwin Wilson, RN is Primary Nurse. rv 21:41 Triage completed. rv 21:45 Inserted saline lock: 22 gauge in left wrist, using aseptic technique. Blood collected. ds4 21:47 Patient has correct armband on for positive identification. Bed in low position. Call rv light in reach. Side rails up X2. 21:48 Patient maintains SpO2 saturation greater than 95% on room air. rv 21:50 Arm band placed on right wrist. Patient placed in the treatment room, on a stretcher, rv Patient notified of wait time. 21:51 Thermoregulation: warm blanket given to patient. rv 21:52 Enrico Fry PA is PHCP. jr8 21:52 Micha Frazier MD is Attending Physician. jr8 22:17 Basic Metabolic Panel Sent. ds4 22:17 PT-INR Sent. ds4 22:17 CBC with Diff Sent. ds4 22:17 LFT's Sent. ds4 22:17 Magnesium Sent. ds4 22:17 NT PRO-BNP Sent. ds4 22:17 Troponin (emerg Dept Use Only) Sent. ds4 22:17 Basic Metabolic Panel Sent. ds4 22:25 CT Head C Spine In Process Unspecified. EDMS 22:39 XRAY Chest (1 view) In Process Unspecified. EDMS 23:01 EKG done, by ED staff, reviewed by Enrico MARROQUIN. ds4 23:55 No provider procedures requiring assistance completed. IV discontinued, intact, rv bleeding controlled, No redness/swelling at site. Pressure dressing applied. Administered Medications: No medications were administered Outcome: 23:11 Discharge ordered by MD. deluna 23:55 Discharged to home via ambulance. rv 23:55 Condition: good 23:55 Discharge instructions given to patient, Instructed on discharge instructions, follow up and referral plans. Demonstrated understanding of instructions, follow-up care. 23:55 Patient left the ED. rv Signatures: Dispatcher [employer] EDSaul Carranza, RN Enrico Vivas PA PA jrJosé Miguel Nuno ds4 Corwin Wilson RN RN rv Noe Calderon cl3 Corrections: (The following items were deleted from the chart) 21:49 21:48 Oxygen administration via nasal cannula \T\ 2L/min rv rv
[2020-03-02 01:40] VITALS: BP 128/68; TEMP 98.2; O2SAT 94
--- NOTE | 2020-03-02 10:55 | RAD REPORT ---
EXAM DESCRIPTION: RAD - Chest Single View - 03/01/2020 10:38 pm CLINICAL HISTORY: TRAUMA Chest pain. COMPARISON: Chest Single View dated 01/27/2020; Chest Single View dated 01/10/2020; Chest Single View d ated 07/21/2019; Chest Single View dated 12/14/2018 FINDINGS: Portable technique limits examination quality. The lungs are mildly emphysematous but grossly clear. The heart is normal in size. No displaced fract ures. IMPRESSION: Mild diffuse COPD.
--- NOTE | 2020-03-02 11:24 | EKG ---
Test Date: 2020-03-01 Test Time: 22:52:38 Crop Duster: CHRISTIANO MEASUREMENT RESULTS: Intervals: Rate: 77 WV: QRSD: 80 QT: 378 QTc: 427 Pollock: P: WV: QRS: 71 T: 76 INTERPRETIVE STATEMENTS: Accelerated Junctional rhythm Abnormal ECG Compared to ECG 01/28/2020 10:08:26 Accelerated junctional rhythm now present Sinus rhythm no longer present ST (T wave) deviation no longer present Possible ischemia no longer present Electronically Signed On 03-02-20 11:23:14 CDT by Bill Velez
--- NOTE | 2020-03-03 11:14 | RAD REPORT ---
EXAM DESCRIPTION: Head C Spine Mpr Wo Con CLINICAL HISTORY: PAIN COMPARISON: None. TECHNIQUE: CT Head and Cervical spine WO contrast on 03/01/2020 9:53 PM CDT This exam was performed according to our departmental dose-optimization program, which includes autom ated exposure control, adjustment of the mA and/or kV according to patient size and/or use of iterati ve reconstruction technique. FINDINGS: Brain: There is no acute hemorrhage, mass effect or midline shift. There is encephalomalac ia in the posterior inferior right frontal lobe. There is no hydrocephalus. There is no significant v olume loss for age. The calvarium is intact. Orbits and globes are unremarkable. The paranasal sinuses are clear. Mastoid air cells are clear. Cervical Spine: There is no acute fracture. There is grade 1 anterolisthesis of C2 on C3. There is mi ld diffuse facet arthritis. There is mild narrowing of the C2-3 disc. There is severe narrowing of the C3-4, C4-5 and C5-6 discs. Vertebral body heights are preserved. Soft tissues are unremarkable. IMPRESSION: No acute postraumatic findings. Electronically signed by: Padilla Grover MD 03/01/2020 10:36 PM CDT Due to temporary technical issues with the PACS/Fluency reporting system, reports are being signed by the in house radiologist without review as a courtesy to ensure prompt reporting. The interpreting r adiologist is fully responsible for the content of the report.
== END 2020-03-01 23:55 | disposition home or self-care (01) ==
LOC: ER 21:33
DX: S00.90XA Unspecified superficial injury of unspecified part of head, initial encounter (principal); W19.XXXA Unspecified fall, initial encounter; Y93.9 Activity, unspecified; Y92.9 Unspecified place or not applicable; I10 Essential (primary) hypertension; F10.20 Alcohol dependence, uncomplicated; Z88.0 Allergy status to penicillin; Z88.3 Allergy status to other anti-infective agents; Z88.5 Allergy status to narcotic agent; Z88.8 Allergy status to other drugs, medicaments and biological substances; Z91.048 Other nonmedicinal substance allergy status
CPT/HCPCS: 36415; 70450; 71045; 72125; 80048; 80076; 82947; 83735; 83880; 84484; 85025; 85610; 93005; 99285

== ENCOUNTER 2020-04-07 22:37 | Emergency (ER) | payer OTHER ==
--- OUTSIDE RECORDS SUMMARY | 2020-04-07 22:40 | XMS REPORT ---
[...] Status Dosage System Date Date Omeprazole ND 40817997247 40 MG Orally Active 1 ca psule Once a day Simvastatin ND 57346680050 20 MG Orally Active 1 t ablet in Once a day the evening Clonazepam ND 09300692632 0.5 MG Orally Active 1 t ablet at Once a day as bedtime needed Duloxetine HCl ND 73234414530 20 MG Orally Active 1 capsule Twice a day Restasis ND 96984210240 0.05 % Active 1 drop into Ophthalmic affected Twice a day eye Gabapentin ND 38914503981 100 MG Orally December Active 1 c apsule Twice a day 2019 as needed for severe pain Amlodipine [facility] 07550909379 5 MG Orally Active 1 tab let Besylate Once a day Combivent [facility] 93331626210 20MCG /100 MCG Active 1 p uff as Respimat Oral Inhalation needed 4 times daily HydrOXYzine HCl [facility] 44886372111 25 MG Orally December Active 1 tablet as every 8 hrs 2019 needed for itching Amitriptyline [facility] 55711411017 50 MG Orally Active 1 tablet at HCl Once a day bedtime Acyclovir [facility] 64110762644 800 MG Orally December Active 1 ta blet Five times 2019 daily Metoprolol [facility] 97928907697 25 MG Orally Active 1 ta blet Tartrate Twice a day with food Levetiracetam [facility] 73213169819 500 MG Orally Active 1 tablet Twice a day Gabapentin [facility] 95909985542 300 MG Orally November Active 1 c apsule Once a day in 2019 as needed evening for pain Stiolto Respimat [facility] 02724546635 2.5mcg/2.5mcg Activ e 2 puffs inhaled Once a day Results No Known Results Summary Purpose eClinicalWorks Submission
--- OUTSIDE RECORDS SUMMARY | 2020-04-07 22:40 | XMS REPORT ---
:1945 [facility] Providers Name Role [...] Status Dosage System Date Date Amlodipine ND 89005496868 5 MG Orally Active 1 tab let Besylate Once a day Metoprolol ND 54645889821 25 MG Orally Active 1 ta blet Tartrate Twice a day with food Duloxetine HCl ND 49162939668 20 MG Orally Active 1 capsule Twice a day Clonazepam ND 69048707878 0.5 MG Orally Active 1 t ablet at Once a day as bedtime needed Gabapentin ND 05668583672 300 MG Orally November Active 1 c apsule Once a day in 2019 as needed evening for pain Acyclovir ND 05501255664 800 MG Orally December Active 1 ta blet Five times 2019 daily Omeprazole ND 12520837694 20 MG Orally Active 1 ca psule Once a day Levetiracetam ND 80377834465 500 MG Orally Active 1 tablet Twice a day Simvastatin ND 55929891520 20 MG Orally Active 1 t ablet in Once a day the evening Stiolto Respimat ND 24986701232 2.5mcg/2.5mcg Activ e 2 puffs inhaled Once a day Combivent ND 78939333933 20MCG /100 MCG Active 1 p uff as Respimat Oral Inhalation needed 4 times daily Gabapentin ND 03719546199 100 MG Orally December Active 1 c apsule Twice a day 2019 as needed for severe pain Amitriptyline [facility] 70257188185 50 MG Orally Active 1 tablet at HCl Once a day bedtime HydrOXYzine HCl [facility] 30441156804 25 MG Orally December Active 1 tablet as every 8 hrs 2019 needed for itching Restasis [facility] 04224162174 0.05 % Active 1 drop into Ophthalmic affected Twice a day eye Results No Known Results Summary Purpose eClinicalWorks Submission
--- OUTSIDE RECORDS SUMMARY | 2020-04-07 22:40 | XMS REPORT | Continuity of Care Document ---
:1945 Author Organization [facility] t Address [address] [place] [address] Care Team Providers Name Role Phone Unavailable Unavailable Unavailable Problems Condition Condition Condition Status Onset Resolution Last Treating Co mments Source Name Details Category Date Date Treatment Clinician Date High High Problem Active [facility] cholester[facility] cholestero Caridad kes - l l [facility] Essential Essential Problem Active [facility] hypertensi hypertensi Caridad kes - on on [facility] Low back Low back Problem [facility] Anxiety Anxiety Problem [facility] Depression Depression Problem Active [facility] COPD COPD Problem Active [facility] (chronic (chronic [facility] - obstructiv obstructiv Me moria e e l pulmonary pulmonary Outp ati disease) disease) ent Clinics Gastroesop Gastroesop Problem Active [facility] hageal hageal [facility] - reflux reflux Memoria disease, disease, l esophagiti esophagiti Ou tpati s presence s presence en t not not Clinics specified specified Other Other Problem Active [facility] chronic chronic [facility] Seizures Seizures Problem [facility] Memory Memory Problem Active [facility] problem problem [facility] Depression Depression Problem Active [facility] with with [facility] anxiety anxiety [facility] Dry mouth Dry mouth Problem Active [facility] 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 Outpati ent Clinics History of History of Problem Active [facility] carotid carotid [facility] - endarterec endarterec Me moria minda minda l [facility] Hyperlipid Hyperlipid Problem Active [facility] emia, emia, [facility] - unspecifie unspecifie Me moria d d l hyperlipid hyperlipid Ou tpati emia type emia type ent Clinics Lumbago Lumbago Problem Active [facility] with with [facility] - sciatica, sciatica, Raghavendra shereen unspecifie unspecifie l d side d side [facility] Scratches Scratches Problem Active [facility] Multiple Multiple Problem Active [facility] bruises bruises [facility] Right arm Right arm Problem Active [facility] pain pain [facility] Status Status Problem Active [facility] post fall post fall [facility] Allergies, Adverse Reactions, Alerts Allergy Allergy Status Severity Reaction(s) Onset Inactive Treating Comm ents Source Name Type Date Date Clinician codeine Adverse Active Itching/"cli [facility] Reaction mbing the [facility] - regan" [facility] Medications Ordered Filled Start Stop Current Ordering Indication Dosage Frequency Signature Comments Components Source Medication Medication Date Date Medication? Clinician (SIG) Name Name Cyclobenzap Cyclobenzap 2020-0 2020- Yes Libra as [facility] rine HCl rine HCl 6-29 07-09 Millender directed [facility] - 00:00: 00:00 Memoria 00 :00 [facility] Gabapentin Gabapentin Yes Libra [address] [facility] 3-11 Millender as needed [facility] - 00:00: for pain Memoria 00 [facility] Amitriptyli Amitriptyli Yes Libra [address] [facility] ne HCl ne HCl Millender at bedtime [facility] Simvastatin Simvastatin Yes Libra [address] [facility] Millender in the [facility] - evening [facility] Combivent Combivent Yes Libra [address] Respimat Respimat Millender Caridad [facility] Duloxetine Duloxetine Yes Libra [address] HCl HCl Millender [facility] Clonazepam Clonazepam Yes Libra [address] [facility] Millender at bedtime [facility] Restasis Restasis Yes Libra [address] [facility] [address] Millender into [facility] - affected Memoria eye l Outpati ent Clinics Amlodipine Amlodipine Yes [...] Date/Time Type Type Clinicians Facility Department ID 2020-04-02 2020-04-02 Outpatient Lexi Elliottt [id number] [facility] 16:41[facility]00 16:41[facility]00 [facility] Medicine Medicine Outpati ent Clinics 2020-03-27 2020-03-27 Outpatient Lexi Elliottt [id number] [facility] 09:05:00 09:05:00 [facility] Medicine Medicine Outpati ent Clinics 2020-03-18 2020-03-18 [place] [id number] [facility] 14:30:00 14:30:00 [facility] Medicine Medicine Outpati ent Clinics 2020-03-04 2020-03-04 [place] [facility] [id number] 15:57:00 15:57:00 [facility] Medicine Medicine Outpati ent Clinics 2020-03-04 2020-03-04 Outpatient [place]i [place] [id number] [facility] 11:00[facility]00 11[facility]:00 [facility] Medicine Medicine Outpati ent Clinics 2020-02-28 2020-02-28 Outpatient [place] [id number] [address] 16:56:00 16:56:00 [facility] Medicine Outpati ent Clinics 2020-02-25 2020-02-25 [place] [id number] 18:47:00 18:47:00 [facility] Medicine Outpati ent Clinics 2020-02-21 2020-02-21 [place] [id number] 10:01:00 10:01:00 [facility] Medicine Outpati ent Clinics 2020-02-16 2020-02-16 [place] [id number] 11[facility]00:00 11:00:00 [facility] Medicine Outpati ent Clinics 2020-02-14 2020-02-14 [place] [place] [id number] 18:14:00 18:14:00 [facility] Medicine Outpati ent Clinics 2020-02-09 2020-02-09 [facility] [place] [id number] 16:33:00 16:33:00 [facility] Medicine Outpati ent Clinics 2020-02-01 2020-02-01 [facility] [id number] [facility] 09:00:00 09:00:00 [facility] Medicine Outpati ent Clinics 2019-12-25 2019-12-25 [place] [id number] 10:00:00 10:00:00 [facility] Medicine Outpati ent Clinics 2019-11-24 2019-11-24 [facility] [place] [id number] 08:25:00 08:25:00 [facility] Medicine Outpati ent Clinics 2019-11-15 2019-11-15 [facility] [id number] [facility] 10:30:00 10:30:00 [facility] Medicine Outpati ent Clinics Results This patient has no known results.
--- OUTSIDE RECORDS SUMMARY | 2020-04-07 22:41 | XMS REPORT ---
:1945 Author Organization [employer] Care Team Providers Name Role Phone Libra Eduardo Provider Role Unavailable Allergies No Known Allergies Problems Problem Type Condition Code Onset Dates Condition Statu s Problem High blood pressure I10 Active Problem Atherosclerosis of left carotid I65.22 Active artery Problem Hyperlipidemia, unspecified E78.5 Active hyperlipidemia type Problem Status post fall Z91.81 Active Problem Depression with anxiety F41.8 Acti ve Problem Multiple bruises T07.XXXA Active Problem Reflux K21.9 Active Problem History of carotid endarterectomy Z98.890 Active Problem Right arm pain M79.601 Active Problem Chronic obstructive pulmonary J44.9 Active disease, unspecified COPD type Problem Gastroesophageal reflux disease, K21.9 Active esophagitis presence not specified Problem Scratches T14.8XXA Active Problem Lumbago with sciatica, unspecified M54.40 Active side Problem Low back pain M54.5 Active Problem Depression F32.9 Active Problem Memory problem R41.3 Active Problem Seizures R56.9 Active Problem Essential hypertension I10 Activ e Problem High cholesterol E78.00 Active Problem Anxiety F41.9 Active Problem Dry mouth R68.2 Active Problem COPD (chronic obstructive J44.9 Ac tive pulmonary disease) Problem Other chronic pain G89.29 Active Medications No Known Medications Results No Known Results Summary Purpose eClinicalWorks Submission
--- OUTSIDE RECORDS SUMMARY | 2020-04-07 22:41 | XMS REPORT ---
:1945 [facility] Team Providers Name [...] Status Dosage System Date Date Simvastatin ND 75482633456 20 MG Orally Active 1 t ablet in Once a day the evening Stiolto Respimat ND 76477045568 2.5mcg/2.5mcg Activ e 2 puffs inhaled Once a day Acyclovir ND 64890160008 800 MG Orally December Active 1 ta blet Five times 2019 daily Amitriptyline ND 87513838770 50 MG Orally Active 1 tablet at HCl Once a day bedtime Restasis ND 08008171479 0.05 % Active 1 drop into Ophthalmic affected Twice a day eye Gabapentin ND 49426069743 100 MG Orally December Active 1 c apsule Twice a day 2019 as needed for severe pain Clonazepam ND 10588560184 0.5 MG Orally Active 1 t ablet at Once a day as bedtime needed Gabapentin ND 39514437578 300 MG Orally November Active 1 c apsule Once a day in 2019 as needed evening for pain HydrOXYzine HCl ND 29689614123 25 MG Orally December Active 1 tablet as every 8 hrs 2019 needed for itching Omeprazole ND 84252874360 20 MG Orally Active 1 ca psule Once a day Duloxetine HCl [facility] 85405873193 20 MG Orally Active 1 capsule Twice a day Levetiracetam [facility] 28176659987 250 MG Orally Active 1 tablet Twice a day Metoprolol [facility] 11899314802 50 MG Orally Active 1 ta blet Tartrate Twice a day with food Lumigan [facility] 34978531700 0.01 % Active 1 drop into Ophthalmic Once affected a day eye in the evening Combivent [facility] 67419544524 20MCG /100 MCG Active 1 p uff Respimat Oral Inhalation 4 times daily, not to exceed 6 in 24 hrs Amlodipine ND 04098562030 5 MG Orally Active 1 tab let Besylate Once a day Combivent [facility] 87601305003 20MCG /100 MCG Active 1 p uff as Respimat Oral Inhalation needed 4 times daily Restasis ND 60780328725 0.05 % Active 1 drop into Ophthalmic affected Twice a day eye Results No Known Results Summary Purpose eClinicalWorks Submission
--- OUTSIDE RECORDS SUMMARY | 2020-04-07 22:41 | XMS REPORT ---
:1945 [facility] Team Providers Name Role Phone Libra Eduardo Provider Role Unavailable Allergies, Adverse Reactions, Alerts Substance Reaction Event Type codeine Itching/"climbing the regan" Non Drug Al lergy Problems Problem Type Condition Code Onset Dates Condition Statu s Assessment Scratches T14.8XXA Active Assessment Multiple bruises T07.XXXA Active Assessment Right arm pain M79.601 Active Assessment Follow-up exam Z09 Active Assessment Status post fall Z91.81 Active Assessment Other chronic pain G89.29 Active Problem Dry mouth R68.2 Active Assessment Low back pain M54.5 Active Problem Other chronic pain G89.29 Active Problem High blood pressure I10 Active Problem Atherosclerosis of left carotid I65.22 Active artery Problem Hyperlipidemia, unspecified E78.5 Active hyperlipidemia type Problem Status post fall Z91.81 Active Problem Multiple bruises T07.XXXA Active Problem Depression with anxiety F41.8 Acti ve Problem Reflux K21.9 Active Problem Right arm pain M79.601 Active Problem History of carotid endarterectomy Z98.890 Active Problem Chronic obstructive pulmonary J44.9 Active [...] E78.00 Active Problem Anxiety F41.9 Active Problem COPD (chronic obstructive J44.9 Ac tive pulmonary disease) Medications Medication Code Code Instructions Start End Status Dosage System Date Date Combivent Respimat [facility] 06813484509 20MCG /100 MCG Ac tive 1 puff as Oral Inhalation needed 4 times daily Duloxetine HCl ND 74578833350 20 MG Orally Active 1 capsule Twice a day Omeprazole ND 53560090412 20 MG Orally Active 1 ca psule Once a day Restasis [facility] 50306736487 0.05 % Active 1 drop Ophthalmic into Twice a day affected eye Cyclobenzaprine ND 24001266520 5 MG Orally 1-2 March 04March Act rosalina as HCl tablets once 2020 05, daily 2019 Restasis [facility] 41474389192 0.05 % Active 1 drop Ophthalmic into Twice a day affected eye Metoprolol [facility] 29594836854 50 MG Orally Active 1 ta blet Tartrate Twice a day with food Clonazepam [facility] 54498181880 0.5 MG Orally Active 1 t ablet Once a day as at bedtime needed Stiolto Respimat [facility] 20898898341 2.5mcg/2.5mcg Activ e 2 puffs inhaled Once a day Combivent Respimat [facility] 66783902797 20MCG /100 MCG Ac tive 1 puff Oral Inhalation 4 times daily, not to exceed 6 in 24 hrs Gabapentin [facility] 84109659458 300 MG Orally November Active 1 c apsule Once a day in 2019 as needed evening for pain Lumigan [facility] 77973581249 0.01 % Active 1 drop Ophthalmic Once into a day affected eye in the evening Levetiracetam ND 97538542420 250 MG Orally Active 1 tablet Twice a day Simvastatin ND 00733210279 20 MG Orally Active 1 t ablet Once a day in the evening Amlodipine ND 82280189329 5 MG Orally Active 1 tab let Besylate Once a day Amitriptyline HCl ND 43917090611 50 MG Orally Activ e 1 tablet Once a day at bedtime Results No Known Results Summary Purpose eClinicalWorks Submission
[2020-04-07] MEDS ORDERED: NA CHLORIDE 0.9% 250 ML ONE (23:31)
[2020-04-07] MEDS ORDERED: ONDANSETRON 4 MG/2 ML VIAL ONE (23:31)
[2020-04-07] MEDS ORDERED: NITROGLYCERIN 0.4 MG/TAB SL ONE (23:31)
[2020-04-08 00:02] LABS: Protime INR 0.91
[2020-04-08 00:03] LABS: Absolute Lymphocytes (CBC) 1.6 K/uL (0.7-4.9); Basophils % 1.1 % (0-1.3); Lymphocytes % 24.8 % (15.3-44.8); MPV 6.7 fL (7.6-11.3); RBC Red Blood Cell Count 3.86 M/uL (3.86-4.86)
[2020-04-08 00:21] LABS: ALT/SGPT 27 U/L (12-78); AST/SGOT 26 U/L (15-37); Albumin 3.7 g/dL (3.4-5.0); Alkaline Phosphatase 163 U/L (45-117); BUN Blood Urea Nitrogen 9 mg/dL (7-18); Bicarbonate 27 mmol/L (21-32); Bilirubin Direct 0.1 mg/dL (0-0.2); Bilirubin Total 0.3 mg/dL (0.2-1.0); Creatine Phosphokinase 55 U/L (26-192); Glucose Level 79 mg/dL (74-106); NT PRO-BNP 383 pg/mL (<125); Potassium 4.3 mmol/L (3.5-5.1); Protein, Total 7.7 g/dL (6.4-8.2); Sodium Level 133 mmol/L (136-145); Troponin (Emerg Dept Use Only) < 0.02 ng/mL (0.0-0.045)
[2020-04-08 01:09] LABS: Blood Morphology Comment NOT SEEN (NOT SEEN); Platelet Estimate INCR
[2020-04-08 02:46] LABS: Urine Blood NEGATIVE (NEG); Urine Glucose NEGATIVE (NEG); Urine Protein NEGATIVE (NEG); Urine Specific Gravity 1.015 (1.005-1.030)
[2020-04-08 02:46] LABS: Urine Bacteria <20 /HPF (<20); Urine RBC <5 /HPF (NONE SEEN); Urine Urothelial Cells <5 /HPF (NONE SEEN)
[2020-04-08 02:47] LABS: Urine Culture Reflex Order NOT NEEDED
--- NOTE | 2020-04-08 03:08 | EDPHYS ---
Physician Documentation [facility] Name: Shilpa Richardson Age: 74 yrs Sex: Female : 1945 Arrival Date: 04/07/2020 Time: 22:39 Bed 15 Private MD: ED Physician José Manuel Marie HPI: 04/07 23:00 This 74 yrs old Female presents to ER via EMS with complaints of Near cp Syncope, Fall. 23:00 Details of fall: The patient fell from an upright position. Onset: The symptoms/episode cp began/occurred today. Found on ground by sister. Unknown down time. 23:00 Associated injuries: The patient sustained injury to the chest, pain with movement, cp tenderness, injury to the abdomen, tenderness. Historical: - Allergies: 22:43 Codeine; ll1 22:43 adhesive tape; ll1 22:43 Diphenhydramine; ll1 22:43 Erythromycin; ll1 22:43 PENICILLINS; ll1 22:43 Tape; ll1 - Home Meds: 23:42 alprazolam 1 mg Oral tab BID [Active]; amlodipine 2.5 mg tab 1 tab once daily [Active]; rr5 atenolol 25 mg Oral tab once daily [Active]; baclofen 10 mg Oral tab BID [Active]; clonidine HCl 0.1 mg Oral tab [Active]; Combivent Inhl [Active]; hydrocodone-acetaminophen 7.5-325 mg/15 mL Oral soln take one tablespoon TID [Active]; Lyrica 100mg Oral 2 times per day [Active]; meloxicam 15 mg Oral tab 1 tab once daily [Active]; Restasis ophthalmic 1 drop 2 times per day [Active]; Silenor 6 mg Oral tab 1 tab once daily [Active]; Stiolto Respimat 2.5-2.5 mcg/actuation inhalation mist 2 puffs once daily [Active]; simvastatin 20 mg Oral tab once daily [Active]; - PMHx: 22:43 ADD/ADHD; Alcoholism; Carotid blockage; Anxiety; Depression; Chronic pain; COPD; ll1 Hypertension; - Immunization history:: Flu vaccine status is unknown. - Social history:: Smoking status: unknown. ROS: 23:05 Eyes: Negative for injury, pain, redness, and discharge. cp 23:05 Constitutional: Negative for body aches, chills, fever, poor PO intake. 23:05 ENT: Negative for ear pain, sore throat, difficulty swallowing, difficulty handling secretions. 23:05 Cardiovascular: Positive for chest pain, Negative for edema, palpitations. 23:05 Respiratory: Negative for cough, shortness of breath, wheezing. 23:05 Abdomen/GI: Negative for abdominal pain, nausea, vomiting, and diarrhea. 23:05 Neuro: Negative for headache. 23:05 All other systems are negative. Exam: 23:10 Constitutional: The patient appears in no acute distress, alert, awake, cp non-diaphoretic, non-toxic, well developed, frail. 23:10 Head/Face: Normocephalic, atraumatic. cp 23:10 Eyes: Periorbital structures: appear normal, Pupils: equal, round, and reactive to light and accomodation, Extraocular movements: intact throughout, Conjunctiva: normal, no exudate, no injection, Sclera: no appreciated abnormality, Lids and lashes: appear normal, bilaterally. 23:10 ENT: External ear(s): are unremarkable, Nose: is normal, Mouth: Lips: moist, Oral mucosa: moist, Posterior pharynx: Airway: no evidence of obstruction, patent. 23:10 Neck: C-spine: vertebral tenderness, is not appreciated, crepitus, is not appreciated. 23:10 Chest/axilla: Inspection: normal, Palpation: is normal, no crepitus, no tenderness. 23:10 Cardiovascular: Rate: normal, Rhythm: regular, Edema: is not appreciated, JVD: is not appreciated. 23:10 Respiratory: the patient does not display signs of respiratory distress, Respirations: normal, no use of accessory muscles, no retractions, labored breathing, is not present, Breath sounds: are clear throughout, no decreased breath sounds, no stridor, no wheezing. 23:10 Abdomen/GI: Inspection: abdomen appears normal, Bowel sounds: active, all quadrants, Palpation: soft, in all quadrants, mild abdominal tenderness, in all quadrants, rebound tenderness, is not appreciated, involuntary guarding, is not appreciated. 23:10 Back: vertebral tenderness, is not appreciated. 23:10 Musculoskeletal/extremity: Exam is negative for decreased range of motion, deformity, injury. 23:10 Skin: no rash present. 23:10 Neuro: Orientation: to person, place, situation, Mentation: able to follow commands, slow to respond. 23:35 ECG was reviewed by the Attending Physician. cp Vital Signs: 22:39 BP 151 / 77; Pulse 72; Resp 19; Temp 98; Pulse Ox 92% ; Weight 39.92 kg; Height 4 ft. rr5 77 in. (317.50 cm); Pain 0/10; 23:31 BP 136 / 81; Pulse 74; Resp 17; Pulse Ox 85% on 2 lpm NC; rr5 23:38 BP 131 / 75; Pulse 79; Resp 16; Pulse Ox 98% on 2 lpm NC; rr5 04/08 00:30 BP 155 / 89; Pulse 75; Resp 16; Temp 98.1; Pulse Ox 99% on 1 lpm NC; rr5 01:30 BP 161 / 89; Pulse 69; Resp 15; Pulse Ox 98% on 1 lpm NC; rr5 02:40 BP 159 / 76; Pulse 72; Resp 16; Pulse Ox 100% on 1 lpm NC; rr5 03:35 BP 126 / 89; Pulse 79; Resp 17; Pulse Ox 98% on 1 lpm NC; rr5 04:41 BP 135 / 65; Pulse 69; Resp 16; Pulse Ox 99% 1 lpm ; rr5 07:00 BP 165 / 74; Pulse 71; Resp 16; Pulse Ox 99% on 1 lpm NC; rr5 04/07 22:39 Body Mass Index 3.96 (39.92 kg, 317.50 cm) rr5 04/07 23:31 hooked to oxygen at 2 liters via nasal cannula rr5 MDM: 22:48 Patient medically screened. cp 23:30 Differential diagnosis: closed head injury, fracture, laceration, multiple trauma, cp cardiac arrythmia, syncope, alcohol intoxication, drug overdose. 04/08 03:00 Data reviewed: vital signs, nurses notes, lab test result(s), EKG, radiologic studies, cp CT scan, I have discussed the patient's presentation/case with the attending Emergency Department Physician;. 03:05 ED course: VSS. Will continue to monitor patient until clinically sober and discharge cp to home. CT trauma negative. 04/07 23:01 Order name: Basic Metabolic Panel; Complete Time: 00:44 cp 04/08 00:44 Interpretation: Normal except: NA 133; CL 96; GFR 85. cp 04/07 23:01 Order name: CBC with Diff; Complete Time: 01:22 cp / 01:22 Interpretation: Normal except: PLT 438; MPV 6.7; MN% 19.1. cp 04/07 23:01 Order name: LFT's; Complete Time: 00:44 cp 04/08 00:44 Interpretation: Normal except: ALK 163; GLOB 4.0; A/G 0.9. cp 04/07 23:01 Order name: Magnesium; Complete Time: 00:44 cp 04/07 23:01 Order name: NT PRO-BNP; Complete Time: 00:44 cp 04/08 02:36 Interpretation: NT PRO-BNP 383; Reviewed. cp 04/07 23:02 Order name: PT-INR; Complete Time: 00:44 cp 04/07 23:02 Order name: Troponin (emerg Dept Use Only); Complete Time: 00:44 cp 04/08 00:45 Interpretation: TROPED < 0.02; Reviewed. cp 04/07 23:02 Order name: Urine Microscopic Only; Complete Time: 02:57 cp 04/08 02:57 Interpretation: Reviewed. cp 04/07 23:12 Order name: ETOH Level; Complete Time: 00:44 cp 04/08 00:44 Interpretation: Abnormal: ETOH 282. cp 04/07 23:16 Order name: CPK cp 04/07 23:57 Order name: Creatine Phosphokinase; Complete Time: 00:44 EDMS 08/03 00:09 Order name: Manual Differential; Complete Time: 01:22 EDMS 03 01:22 Interpretation: Normal except: BANDS [F] 8. cp 04/08 02:38 Order name: Urine Dipstick--Ancillary (enter results); Complete Time: 02:57 tt3 04/07 23:02 Order name: XRAY Chest (1 view) cp 04/07 23:02 Order name: EKG; Complete Time: 23:02 cp 04/07 23:02 Order name: Cardiac monitoring; Complete Time: 23:30 cp 04/07 23:02 Order name: EKG - Nurse/Tech; Complete Time: 23:30 cp 04/07 23:02 Order name: IV Saline Lock; Complete Time: 23:30 cp 04/07 23:02 Order name: Labs collected and sent; Complete Time: 23:30 cp 08 23:02 Order name: O2 Per Protocol; Complete Time: 23:30 cp 08 23:02 Order name: O2 Sat Monitoring; Complete Time: 23:30 cp 08 23:02 Order name: Urine Dipstick-Ancillary (obtain specimen); Complete Time: 02:36 cp 04/08 00:47 Order name: CT Traumagram (Head C Spine CAP W Con) cp EC/02 23:35 Rate is 75 beats/min. Rhythm is regular. AL interval is normal. QRS interval is normal. cp QT interval is normal. T waves are Inverted in lead aVR. Interpreted by me. Reviewed by me. Administered Medications: 23:30 Drug: NS 0.9% 250 ml Route: IV; Rate: bolus; Site: right forearm; rr5 04/08 00:00 Follow up: Response: No adverse reaction; IV Status: Completed infusion; IV Intake: rr5 250ml 04/07 23:31 Drug: Zofran (Ondansetron) 4 mg Route: IVP; Site: right forearm; rr5 04/08 00:38 Follow up: Response: No adverse reaction rr5 04/07 23:31 Drug: Nitroglycerin 0.4 mg Route: Sublingual; rr5 04/08 00:37 Follow up: Response: No adverse reaction rr5 Disposition: 08:35 Co-signature as Attending Physician, José Manuel Marie MD I agree with the assessment and tw4 plan of care. Disposition: 04/08/20 03:07 Discharged to Home. Impression: Fall on same level from slipping, tripping and stumbling, Alcohol abuse with intoxication. - Condition is Stable. - Discharge Instructions: Alcohol Intoxication, Fall Prevention in the Home, Alcohol Abuse and Nutrition. - Medication Reconciliation Form, Thank You Letter, Antibiotic Education, Prescription Opioid Use form. - Follow up: Private Physician; When: 1 - 2 days; Reason: Recheck today's complaints. - Problem is new. - Symptoms have improved. Signatures: Dispatcher [employer] EDIrma Treadwell RN RN iw Page, Corey, PA PA cp Wadley, Terrence, MD MD tw4 Alfie Castillo RN RN rr5 Godwin Calderon RN RN ll1 Corrections: (The following items were deleted from the chart) 08/02 23:56 23:16 Creatine Phosphokinase ordered. EDMS EDMS 04/08 03:00 04/07 23:00 This 74 yrs old Female presents to ER via EMS with complaints of cp Chest Pain. cp 04/08 03:01 02:59 This 74 yrs old Female presents to ER via EMS with complaints of Near cp Syncope, Fall. cp 08:25 03:07 04/08/2020 03:07 Discharged to Home. Impression: Fall on same level from iw slipping, tripping and stumbling; Alcohol abuse with intoxication. Condition is Stable. Forms are Medication Reconciliation Form, Thank You Letter, Antibiotic Education, Prescription Opioid Use. Follow up: Private Physician; When: 1 - 2 days; Reason: Recheck today's complaints. Problem is new. Symptoms have improved. cp
--- NOTE | 2020-04-08 03:08 | ER ---
Nurse's Notes [facility] Name: Shilpa Richardson Age: 74 yrs Sex: Female : 1945 Arrival Date: 04/07/2020 Time: 22:39 Bed 15 Private MD: Diagnosis: Fall on same level from slipping, tripping and stumbling;Alcohol abuse with intoxication Presentation: 04/07 22:39 Chief complaint: EMS states: Sister called EMS because she found her on the floor, ll1 unresponsive but breathing. When EMS arrived she was laying on the couch, alert. Told EMS she fell to the ground and just couldn't get up, and then later stated she might have passed out. VSS. Fingerstick 120. EKG WNL. Coronavirus screen: Client denies travel out of the [place] in the last 14 days. At this time, the client does not indicate any symptoms associated with coronavirus-19. Ebola Screen: Patient denies travel to an Ebola-affected area in the 21 days before illness onset. Onset of symptoms was April 07, 2020. 22:39 Method Of Arrival: EMS: [facility] ll1 22:39 Acuity: PATRICIA 3 ll1 22:39 Initial Sepsis Screen: Does the patient meet any 2 criteria? No. Patient's initial rr5 sepsis screen is negative. Does the patient have a suspected source of infection? No. Patient's initial sepsis screen is negative. Risk Assessment: Do you want to hurt yourself or someone else? Patient reports no desire to harm self or others. Historical: - Allergies: 22:43 Codeine; ll1 22:43 adhesive tape; ll1 22:43 Diphenhydramine; ll1 22:43 Erythromycin; ll1 22:43 PENICILLINS; ll1 22:43 Tape; ll1 - Home Meds: 23:42 alprazolam 1 mg Oral tab BID [Active]; amlodipine 2.5 mg tab 1 tab once daily [Active]; rr5 atenolol 25 mg Oral tab once daily [Active]; baclofen 10 mg Oral tab BID [Active]; clonidine HCl 0.1 mg Oral tab [Active]; Combivent Inhl [Active]; hydrocodone-acetaminophen 7.5-325 mg/15 mL Oral soln take one tablespoon TID [Active]; Lyrica 100mg Oral 2 times per day [Active]; meloxicam 15 mg Oral tab 1 tab once daily [Active]; Restasis ophthalmic 1 drop 2 times per day [Active]; Silenor 6 mg Oral tab 1 tab once daily [Active]; Stiolto Respimat 2.5-2.5 mcg/actuation inhalation mist 2 puffs once daily [Active]; simvastatin 20 mg Oral tab once daily [Active]; - PMHx: 22:43 ADD/ADHD; Alcoholism; Carotid blockage; Anxiety; Depression; Chronic pain; COPD; ll1 Hypertension; - Immunization history:: Flu vaccine status is unknown. - Social history:: Smoking status: unknown. Screenin:00 Abuse screen: Denies threats or abuse. Denies injuries from another. Nutritional rr5 screening: No deficits noted. Tuberculosis screening: No symptoms or risk factors identified. Fall Risk Fall in past 12 months (25 points). IV access (20 points). Total Solorzano Fall Scale indicates High Risk Score (45 or more points). Fall prevention measures have been instituted. Side Rails Up X 2 Frequent Obs/Assessments Occuring As available patient and family educated on Fall Prevention Program and Strategies. Assessment: 22:40 General: Appears in no apparent distress. comfortable, Behavior is calm, cooperative. rr5 Pain: Denies pain. Neuro: Level of Consciousness is awake, alert, obeys commands, Oriented to person, place, time, situation. Cardiovascular: Reports chest pain, Capillary refill < 3 seconds Patient's skin is warm and dry. 22:40 Respiratory: Airway is patent Respiratory effort is even, unlabored, Respiratory rr5 pattern is regular, symmetrical. GI: Abdomen is round distended, Reports nausea. : No signs and/or symptoms were reported regarding the genitourinary system. EENT: No signs and/or symptoms were reported regarding the EENT system. Derm: Skin is fragile, is thin, Skin temperature is warm. Musculoskeletal: Circulation, motion, and sensation intact. Capillary refill < 3 seconds. 23:40 Reassessment: Patient appears in no apparent distress at this time. No changes from rr5 previously documented assessment. Patient is alert, oriented x 3, equal unlabored respirations, skin warm/dry/pink. awaiting for results. 04/08 00:40 Reassessment: Patient appears in no apparent distress at this time. Patient is alert, rr5 oriented x 3, equal unlabored respirations, skin warm/dry/pink. for ct traumagram. 02:30 Reassessment: Patient appears in no apparent distress at this time. Patient is alert, rr5 oriented x 3, equal unlabored respirations, skin warm/dry/pink. awaiting for CT result. 03:32 Reassessment: Patient appears in no apparent distress at this time. resting eyes closed rr5 breathing spontaneously with oxygen at 1 liter per nasal cannula. 04:40 Reassessment: patient is discharge awaiting for her ride home in the morning. rr5 06:00 Reassessment: Patient appears in no apparent distress at this time. Patient is alert, rr5 oriented x 3, equal unlabored respirations, skin warm/dry/pink. 07:00 Reassessment: tried to call patient sister fernando [phone] did not answer. rr5 Vital Signs: 04/07 22:39 BP 151 / 77; Pulse 72; Resp 19; Temp 98; Pulse Ox 92% ; Weight 39.92 kg; Height 4 ft. rr5 77 in. (317.50 cm); Pain 0/10; 23:31 BP 136 / 81; Pulse 74; Resp 17; Pulse Ox 85% on 2 lpm NC; rr5 23:38 BP 131 / 75; Pulse 79; Resp 16; Pulse Ox 98% on 2 lpm NC; rr5 04/08 00:30 BP 155 / 89; Pulse 75; Resp 16; Temp 98.1; Pulse Ox 99% on 1 lpm NC; rr5 01:30 BP 161 / 89; Pulse 69; Resp 15; Pulse Ox 98% on 1 lpm NC; rr5 02:40 BP 159 / 76; Pulse 72; Resp 16; Pulse Ox 100% on 1 lpm NC; rr5 03:35 BP 126 / 89; Pulse 79; Resp 17; Pulse Ox 98% on 1 lpm NC; rr5 04:41 BP 135 / 65; Pulse 69; Resp 16; Pulse Ox 99% 1 lpm ; rr5 07:00 BP 165 / 74; Pulse 71; Resp 16; Pulse Ox 99% on 1 lpm NC; rr5 04/07 22:39 Body Mass Index 3.96 (39.92 kg, 317.50 cm) rr5 04/07 23:31 hooked to oxygen at 2 liters via nasal cannula rr5 ED Course: 22:39 Patient arrived in ED. ll1 22:42 Alfie Castillo, ANJUM is Primary Nurse. rr5 22:42 Triage completed. ll1 22:43 Hector Gomez PA is PHCP. cp 22:43 José Manuel Marie MD is Attending Physician. cp 22:44 Arm band placed on Patient placed in an exam room, on a stretcher. ll1 22:50 Patient has correct armband on for positive identification. Placed in gown. Bed in low rr5 position. Call light in reach. Side rails up X2. developmental mathematics professor on. Pulse ox on. NIBP on. 23:25 EKG done, by ED staff, reviewed by Hector MARROQUIN. rr5 23:25 Missed attempt(s): 22 gauge Bleeding controlled, band aid applied, catheter tip intact. oe 23:30 XRAY Chest (1 view) In Process Unspecified. EDMS 23:30 Inserted saline lock: 22 gauge in right forearm, using aseptic technique. Blood rr5 collected. 08 02:28 CT Traumagram (Head C Spine CAP W Con) In Process Unspecified. EDMS 02:36 Urine collected: clean catch specimen, clear. rr5 03:41 No provider procedures requiring assistance completed. rr5 08:25 IV discontinued, intact, bleeding controlled, No redness/swelling at site. Pressure iw dressing applied. Administered Medications: 04/07 23:30 Drug: NS 0.9% 250 ml Route: IV; Rate: bolus; Site: right forearm; rr5 04/08 00:00 Follow up: Response: No adverse reaction; IV Status: Completed infusion; IV Intake: rr5 250ml 04/07 23:31 Drug: Zofran (Ondansetron) 4 mg Route: IVP; Site: right forearm; rr5 04/08 00:38 Follow up: Response: No adverse reaction rr5 04/07 23:31 Drug: Nitroglycerin 0.4 mg Route: Sublingual; rr5 04/08 00:37 Follow up: Response: No adverse reaction rr5 Intake: 00:00 IV: 250ml; Total: 250ml. rr5 04:42 PO: 0ml; Total: 250ml. rr5 Outcome: 03:07 Discharge ordered by . cp 08:24 Discharged to home ambulatory, via taxi iw 08:24 Condition: good 08:24 Discharge instructions given to patient, Instructed on discharge instructions, follow up and referral plans. Demonstrated understanding of instructions, follow-up care. 08:25 Patient left the ED. iw Signatures: Dispatcher [employer] EDIrma Treadwell RN RN iw Hector Gomez, PA PA diane Lee, Alfie Madison RN RN rr5 Godwin Calderon RN RN ll1 Corrections: (The following items were deleted from the chart) 04/07 23:40 23:30 Inserted saline lock: 22 gauge in left forearm, using aseptic technique. ,using rr5 aseptic technique. inserted by [facility] Blood collected. rr5
--- NOTE | 2020-04-08 07:05 | RAD REPORT ---
EXAM DESCRIPTION: RAD - Chest Single View - 04/07/2020 11:30 pm CLINICAL HISTORY: CHEST PAIN, shortness of breath, unresponsive COMPARISON: Portable March 01, 2020 TECHNIQUE: AP portable chest image was obtained 04/07/2020 11:30 pm . FINDINGS: Interstitial fibrotic pattern is present matching comparison. No failure, infiltrate or ma ss identifiable. Heart and vasculature are normal. No measurable pleural effusion and no pneumothorax . No acute bony abnormality seen. No acute aortic findings suspected. IMPRESSION: No acute cardiopulmonary process. Chronic interstitial fibrotic pattern matches comparison.
[2020-04-08 08:42] VITALS: TEMP 98.1
[2020-04-08 08:47] VITALS: O2SAT 99
[2020-04-08 08:49] VITALS: BP 165/74
--- NOTE | 2020-04-08 10:42 | RAD REPORT ---
EXAM DESCRIPTION: CT - Head C Spine Fred Lujan - 04/08/2020 3:29 am CLINICAL HISTORY: The patient is 74 years old and is Female; fall , pain TECHNIQUE: Axial computed tomography images of the head/brain and cervical spine without intravenous contrast. Sagittal and coronal reformatted images were created and reviewed. This CT exam was pe rformed using one or more of the following dose reduction techniques: automated exposure control, a djustment of the mA and/or kV according to patient size, and/or use of iterative reconstruction techn ique. COMPARISON: CT of the head and C-spine March 01, 2020 FINDINGS: BRAIN: Encephalomalacia within the right frontal lobe is redemonstrated. There is diffus e cerebral atrophy present, consistent with this patient's age. There is patchy hypoattenuation of the deep white matter which is non-specific, but most likely owing to chronic small vessel ischemic c hange in a patient of this age group. No intracranial hemorrhage, mass effect, or midline shift is seen. There are no extra-axial fluid collections. VENTRICLES: There is diffuse prominence of the ventricles, which is likely related to central at rophy. SKULL: No acute fracture. SINUSES: Unremarkable as visualized. No acute sinusitis. MASTOID AIR CELLS: Unremarkable as visualized. No mastoid effusion. VERTEBRAE: Reversal the normal cervical curvature is present. The bones are demineralized and di ffusely heterogeneous. The vertebral body heights are grossly maintained. DISCS/SPINAL CANAL/NEURAL FORAMINA: Significant intervertebral disc space narrowing and osteophy te formation from C3 through C6, most prominent at C3-C4 and C4-C5. Neural foraminal narrowing second diomedes to disc osteophyte complexes at C3-C4 and C4-C5 is noted. Minimal anterolisthesis of C2 on C3 sec ondary to degenerative facet arthropathy is noted. SOFT TISSUES: The soft tissues are normal. LUNG APICES: Unremarkable as visualized. IMPRESSION: No acute intracranial findings. Moderate to severe spondylosis of the cervical spine wit hout acute findings. EXAM: CT Chest, Abdomen and Pelvis With Intravenous Contrast CLINICAL HISTORY: The patient is 74 years old and is Female; fall , pain TECHNIQUE: Axial computed tomography images of the chest, abdomen and pelvis with intravenous contra st. Sagittal and coronal reformatted images were created and reviewed. This CT exam was performed using one or more of the following dose reduction techniques: automated exposure control, adjustme nt of the mA and/or kV according to patient size, and/or use of iterative reconstruction technique. COMPARISON: No relevant prior studies available. FINDINGS: CHEST: LUNGS: Bilateral centrilobular emphysematous changes of the lungs are noted. Flattening of the h emidiaphragms is present. Minimal dependent densities in the lung bases are present. PLEURAL SPACE: Unremarkable. No significant effusion. No pneumothorax. HEART: No cardiomegaly. No pericardial effusion. THYROID: A 2.2 cm nodule within the right lobe of the thyroid is present. ABDOMEN: LIVER: Unremarkable. No mass. GALLBLADDER AND BILE DUCTS: Surgical clips are present in the right upper quadrant, consistent w ith previous cholecystectomy. Moderate biliary dilatation is present. PANCREAS: The pancreas is atrophic. SPLEEN: Unremarkable. ADRENALS: Unremarkable. No mass. KIDNEYS AND URETERS: Prominent bilateral renal pelves is noted. The kidneys enhance symmetricall y. STOMACH AND BOWEL: The stomach is decompressed. The small bowel is relatively normal in caliber. Stool and air are present throughout the colon. There is no mucosal thickening or evidence of bowel obstruction. PELVIS: APPENDIX: No findings to suggest acute appendicitis. BLADDER: The bladder is significantly distended. A left bladder diverticulum is noted. REPRODUCTIVE: Unremarkable as visualized. CHEST, ABDOMEN and PELVIS: INTRAPERITONEAL SPACE: Unremarkable. No significant fluid collection. No free air. BONES/JOINTS: Scoliotic curvature of the spine is present. The bones are osteopenic. Multilevel intervertebral disc space narrowing and osteophyte formation throughout the thoracic and lumbar spine is noted. There is no acute fracture of the visualized axial and appendicular skeleton. SOFT TISSUES: The soft tissues are normal. VASCULATURE: Atherosclerosis of the vasculature is present. No aortic aneurysm. LYMPH NODES: Unremarkable. No enlarged lymph nodes. IMPRESSION: 1. No evidence of solid organ injury or traumatic bony findings on this contrasted CT of the chest, abdomen, and pelvis. 2. Right thyroid nodule. Recommend nonemergent follow-up thyroid ultrasound. Electronically signed by: Kassi Genao MD 04/08/2020 2:51 AM CDT Due to temporary technical issues with the PACS/Fluency reporting system, reports are being signed by the in house radiologist without review as a courtesy to ensure prompt reporting. The interpreting r adiologist is fully responsible for the content of the report.
--- NOTE | 2020-04-09 11:05 | EKG ---
Test Date: 2020-04-07 Test Time: 23:27:15 Garden Worker: RR MEASUREMENT RESULTS: Intervals: Rate: 75 WV: 178 QRSD: 90 QT: 390 QTc: 435 [place]: P: 48 WV: 178 QRS: 67 T: 72 INTERPRETIVE STATEMENTS: Normal sinus rhythm Minimal voltage criteria for LVH, may be normal variant Borderline ECG Compared to ECG 03/01/2020 22:52:38 Left ventricular hypertrophy now present Accelerated junctional rhythm no longer present Electronically Signed On 04-09-20 11:03:03 CDT by Bill Velez
== END 2020-04-08 08:25 | disposition home or self-care (01) ==
LOC: ER 22:37
DX: F10.229 Alcohol dependence with intoxication, unspecified (principal); W01.0XXA Fall on same level from slipping, tripping and stumbling without subsequent striking against object, initial encounter; Y93.9 Activity, unspecified; Y92.9 Unspecified place or not applicable; I10 Essential (primary) hypertension; F32.9 Major depressive disorder, single episode, unspecified; Z88.0 Allergy status to penicillin; Z88.3 Allergy status to other anti-infective agents; Z88.5 Allergy status to narcotic agent; Z88.8 Allergy status to other drugs, medicaments and biological substances; Z91.048 Other nonmedicinal substance allergy status
CPT/HCPCS: 96365; 93005; 85025; 80048; 36415; 80320; 83735; 82550; 85610; 80076; 84484; 83880; 70450; 72125; 71260; 74177; 71045; 96375; 99285; Q9967; J7050; J2405; 81003; 81015

== ENCOUNTER 2020-04-12 21:31 | Emergency (ER) | payer OTHER ==
--- OUTSIDE RECORDS SUMMARY | 2020-04-12 21:35 | XMS REPORT ---
[...] Status Dosage System Date Date Amlodipine ND 23814218769 5 MG Orally Active 1 tab let Besylate Once a day Metoprolol ND 42957793632 25 MG Orally Active 1 ta blet Tartrate Twice a day with food Duloxetine HCl ND 97504945033 20 MG Orally Active 1 capsule Twice a day Clonazepam ND 34382190813 0.5 MG Orally Active 1 t ablet at Once a day as bedtime needed Gabapentin ND 81105115991 300 MG Orally November Active 1 c apsule Once a day in 2019 as needed evening for pain Acyclovir ND 33691165150 800 MG Orally December Active 1 ta blet Five times 2019 daily Omeprazole ND 91382181133 20 MG Orally Active 1 ca psule Once a day Levetiracetam ND 43246219486 500 MG Orally Active 1 tablet Twice a day Simvastatin ND 93795155717 20 MG Orally Active 1 t ablet in Once a day the evening Stiolto Respimat ND 97469548215 2.5mcg/2.5mcg Activ e 2 puffs inhaled Once a day Combivent ND 31884024931 20MCG /100 MCG Active 1 p uff as Respimat Oral Inhalation needed 4 times daily Gabapentin ND 93356494905 100 MG Orally December Active 1 c apsule Twice a day 2019 as needed for severe pain Amitriptyline [facility] 07405935461 50 MG Orally Active 1 tablet at HCl Once a day bedtime HydrOXYzine HCl [facility] 83093927451 25 MG Orally December Active 1 tablet as every 8 hrs 2019 needed for itching Restasis [facility] 22501942226 0.05 % Active 1 drop into Ophthalmic affected Twice a day eye Results No Known Results Summary Purpose eClinicalWorks Submission
--- OUTSIDE RECORDS SUMMARY | 2020-04-12 21:35 | XMS REPORT ---
[...] Status Dosage System Date Date Omeprazole ND 41750551673 40 MG Orally Active 1 ca psule Once a day Simvastatin ND 51324690507 20 MG Orally Active 1 t ablet in Once a day the evening Clonazepam ND 36292754245 0.5 MG Orally Active 1 t ablet at Once a day as bedtime needed Duloxetine HCl ND 16438699637 20 MG Orally Active 1 capsule Twice a day Restasis ND 78014239702 0.05 % Active 1 drop into Ophthalmic affected Twice a day eye Gabapentin ND 22690735843 100 MG Orally December Active 1 c apsule Twice a day 2019 as needed for severe pain Amlodipine [facility] 13673863659 5 MG Orally Active 1 tab let Besylate Once a day Combivent [facility] 59923808862 20MCG /100 MCG Active 1 p uff as Respimat Oral Inhalation needed 4 times daily HydrOXYzine HCl [facility] 47002241624 25 MG Orally December Active 1 tablet as every 8 hrs 2019 needed for itching Amitriptyline [facility] 67545354900 50 MG Orally Active 1 tablet at HCl Once a day bedtime Acyclovir [facility] 14586348583 800 MG Orally December Active 1 ta blet Five times 2019 daily Metoprolol [facility] 96388299946 25 MG Orally Active 1 ta blet Tartrate Twice a day with food Levetiracetam [facility] 46433095220 500 MG Orally Active 1 tablet Twice a day Gabapentin [facility] 27015902469 300 MG Orally November Active 1 c apsule Once a day in 2019 as needed evening for pain Stiolto Respimat [facility] 53253713055 2.5mcg/2.5mcg Activ e 2 puffs inhaled Once a day Results No Known Results Summary Purpose eClinicalWorks Submission
--- OUTSIDE RECORDS SUMMARY | 2020-04-12 21:35 | XMS REPORT | Continuity of Care Document ---
:1945 Author Organization [facility] t Address [address] [place] [address] Care Team Providers Name Role Phone Unavailable Unavailable Unavailable Problems Condition Condition Condition Status Onset Resolution Last Treating Co mments Source Name Details Category Date Date Treatment Clinician Date High High Problem Active [facility] k[facility] Essential Essential Problem Active [facility] hypertensi hypertensi Caridad kes - on [facility] Low back Low back Problem [...] with [facility] Dry mouth Dry mouth Problem Active [facility] 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 [facility] Clinics History of History of Problem Active [facility] carotid carotid [facility] - endarterec endarterec Me moria minda [facility]a [facility] Hyperlipid Hyperlipid Problem Active [facility] emia, emia, [facility] - unspecifie unspecifie Me moria d d l hyperlipid hyperlipid Ou tpati emia type emia type ent Clinics Lumbago Lumbago Problem Active [facility] with with [facility] - sciatica, sciatica, Raghavendra shereen unspecifie unspecifie l d side d side [facility] Scratches Scratches Problem Active [facility] Multiple Multiple Problem Active [facility] bruises bruises [facility] Right arm Right arm Problem Active [facility] pain pain [facility] Status Status Problem Active [facility] post fall post fall [facility] Allergies, Adverse Reactions, Alerts Allergy Allergy Status Severity Reaction(s) Onset Inactive Treating Comm ents Source Name Type Date Date Clinician codeine Adverse Active Itching/"cli [facility] Reaction mbing the [facility] - regan" [facility] Medications Ordered Filled Start Stop Current Ordering Indication Dosage Frequency Signature Comments Components Source Medication Medication Date Date Medication? Clinician (SIG) Name Name Cyclobenzap Cyclobenzap 2020-0 2020- Yes Libra as [facility] rine HCl rine HCl 6-29 07-09 [facility] directed [facility] - 00:00: 00:00 Memoria 00 :00 [facility] Gabapentin Gabapentin Yes Libra [address] [facility] 3-11 Mill[facility] as needed [facility] - 00:00: for pain Memoria 00 [facility] Amitriptyli Amitriptyli Yes Libra [address] [facility] ne HCl ne HCl Millender at bedtime [facility] Simvastatin Simvastatin Yes Libra [address] [facility] Millender in the [facility] - evening [facility] Combivent Combivent Yes Libra [address] Respimat Respimat Millender Caridad [facility] Duloxetine Duloxetine Yes Libra [address] [facility] HCl HCl Millender [facility] Clonazepam Clonazepam Yes Libra [address] [facility] Millender at bedtime [facility] Restasis Restasis Yes Libra 1 drop [facility] [...] ID 2020-04-02 2020-04-02 Outpatient Lexi Elliottt [id number] [facility] 16:41:00 16:41:00 [facility] Medicine Medicine Outpati ent Clinics 2020-03-27 2020-03-27 Outpatient Lexi Elliottt [id number] 09:05:00 09:05:00 [facility] Medicine Medicine Outpati ent Clinics 2020-03-18 2020-03-18 [place] [facility] [id number] 14:30:00 14:30:00 [facility] Medicine Medicine Outpati ent Clinics 2020-03-04 2020-03-04 [place] [id number] 15:57:00 15:57:00 [facility] Medicine Medicine Outpati ent Clinics 2020-03-04 2020-03-04 [place] [id number] [facility] 11:00:00 11:00:00 [facility] Medicine Medicine Outpati ent Clinics 2020-02-28 2020-02-28 [place] [id number] 16:56:00 16:56:00 [facility] Medicine Outpati ent Clinics 2020-02-25 2020-02-25 [place] [facility] [id number] 18:47:00 18:47:00 [facility] Medicine Outpati ent Clinics 2020-02-21 2020-02-21 [place] [id number] 10:01:00 10:01:00 [facility] Medicine Outpati ent Clinics 2020-02-16 2020-02-16 [place] [id number] [facility] 11:00:00 11:00:00 [facility] Medicine Outpati ent Clinics 2020-02-14 2020-02-14 [place] [id number] [facility] 18:14:00 18:14:00 [facility] Medicine Outpati ent Clinics 2020-02-09 2020-02-09 [facility] [id number] 16:33:00 16:33:00 [facility] Medicine Outpati ent Clinics 2020-02-01 2020-02-01 [facility] [id number] 09:00:00 09:00:00 [facility] Medicine Outpati ent Clinics 2019-12-25 2019-12-25 [facility] [id number] [facility] 10:00:00 10:00:00 [facility] Medicine Outpati ent Clinics 2019-11-24 2019-11-24 [facility] [id number] [facility] 08:25:00 08:25:00 [facility] Medicine Outpati ent Clinics 2019-11-15 2019-11-15 [facility] [id number] [facility] 10:30:00 10:30:00 [facility] Medicine Outpati ent Clinics Results This patient has no known results.
--- OUTSIDE RECORDS SUMMARY | 2020-04-12 21:36 | XMS REPORT ---
:1945 [facility] Providers Name Role [...] Status Dosage System Date Date Combivent Respimat [facility] 88300018710 20MCG /100 MCG Ac tive 1 puff as Oral Inhalation needed 4 times daily Duloxetine HCl ND 14116598257 20 MG Orally Active 1 capsule Twice a day Omeprazole ND 01670699470 20 MG Orally Active 1 ca psule Once a day Restasis [facility] 23578943530 0.05 % Active 1 drop Ophthalmic into Twice a day affected eye Cyclobenzaprine ND 96929256808 5 MG Orally 1-2 March 04March Act rosalina as HCl tablets once 2020 05, daily 2019 Restasis [facility] 94917957098 0.05 % Active 1 drop Ophthalmic into Twice a day affected eye Metoprolol [facility] 80853346591 50 MG Orally Active 1 ta blet Tartrate Twice a day with food Clonazepam [facility] 50814231038 0.5 MG Orally Active 1 t ablet Once a day as at bedtime needed Stiolto Respimat [facility] 27740129086 2.5mcg/2.5mcg Activ e 2 puffs inhaled Once a day Combivent Respimat [facility] 22298945961 20MCG /100 MCG Ac tive 1 puff Oral Inhalation 4 times daily, not to exceed 6 in 24 hrs Gabapentin [facility] 42441964866 300 MG Orally November Active 1 c apsule Once a day in 2019 as needed evening for pain Lumigan [facility] 17737142350 0.01 % Active 1 drop Ophthalmic Once into a day affected eye in the evening Levetiracetam ND 43893217761 250 MG Orally Active 1 tablet Twice a day Simvastatin ND 66217337690 20 MG Orally Active 1 t ablet Once a day in the evening Amlodipine ND 22495295006 5 MG Orally Active 1 tab let Besylate Once a day Amitriptyline HCl ND 33624536646 50 MG Orally Activ e 1 tablet Once a day at bedtime Results No Known Results Summary Purpose eClinicalWorks Submission
--- OUTSIDE RECORDS SUMMARY | 2020-04-12 21:36 | XMS REPORT ---
:1945 [facility] Providers Name Role Phone [...] Status Dosage System Date Date Simvastatin ND 39308368992 20 MG Orally Active 1 t ablet in Once a day the evening Stiolto Respimat ND 40124877465 2.5mcg/2.5mcg Activ e 2 puffs inhaled Once a day Acyclovir ND 19114512204 800 MG Orally December Active 1 ta blet Five times 2019 daily Amitriptyline ND 32581791596 50 MG Orally Active 1 tablet at HCl Once a day bedtime Restasis ND 36856401270 0.05 % Active 1 drop into Ophthalmic affected Twice a day eye Gabapentin ND 85281077317 100 MG Orally December Active 1 c apsule Twice a day 2019 as needed for severe pain Clonazepam ND 78399514523 0.5 MG Orally Active 1 t ablet at Once a day as bedtime needed Gabapentin ND 61834526342 300 MG Orally November Active 1 c apsule Once a day in 2019 as needed evening for pain HydrOXYzine HCl ND 33897406021 25 MG Orally December Active 1 tablet as every 8 hrs 2019 needed for itching Omeprazole ND 51188485470 20 MG Orally Active 1 ca psule Once a day Duloxetine HCl [facility] 32379380371 20 MG Orally Active 1 capsule Twice a day Levetiracetam [facility] 77799871521 250 MG Orally Active 1 tablet Twice a day Metoprolol [facility] 56934169166 50 MG Orally Active 1 ta blet Tartrate Twice a day with food Lumigan [facility] 09261934106 0.01 % Active 1 drop into Ophthalmic Once affected a day eye in the evening Combivent [facility] 83274947640 20MCG /100 MCG Active 1 p uff Respimat Oral Inhalation 4 times daily, not to exceed 6 in 24 hrs Amlodipine ND 53586970560 5 MG Orally Active 1 tab let Besylate Once a day Combivent [facility] 27506448370 20MCG /100 MCG Active 1 p uff as Respimat Oral Inhalation needed 4 times daily Restasis ND 40031843029 0.05 % Active 1 drop into Ophthalmic affected Twice a day eye Results No Known Results Summary Purpose eClinicalWorks Submission
[2020-04-12 22:30] LABS: Absolute Lymphocytes (CBC) 1.8 K/uL (0.7-4.9); Basophils % 1.1 % (0-1.3); RBC Red Blood Cell Count 4.12 M/uL (3.86-4.86)
[2020-04-12 22:40] LABS: Hematocrit 38.2 % (36.0-45.0); Lymphocytes % 24.3 % (15.3-44.8); MPV 6.4 fL (7.6-11.3)
[2020-04-12 22:51] LABS: Albumin 3.8 g/dL (3.4-5.0); Bilirubin Direct 0.1 mg/dL (0-0.2); Bilirubin Total 0.4 mg/dL (0.2-1.0); Potassium 3.9 mmol/L (3.5-5.1); Protein, Total 8.2 g/dL (6.4-8.2)
[2020-04-13] MEDS ORDERED: NA CHLORIDE 0.9% 0 ML ONE (00:01)
[2020-04-13 00:47] LABS: Barbiturates NEGATIVE (NEGATIVE); Benzodiazepines NEGATIVE (NEGATIVE); Cocaine NEGATIVE (NEGATIVE); METHAMPHETAM NEGATIVE (NEGATIVE); Methadone NEGATIVE (NEGATIVE); Opiates NEGATIVE (NEGATIVE); Phencyclidine NEGATIVE (NEGATIVE); THC Cannibis NEGATIVE (NEGATIVE)
--- NOTE | 2020-04-13 01:07 | ER ---
Nurse's Notes [facility] Name: Shilpa Richardson Age: 74 yrs Sex: Female : 1945 Arrival Date: 04/12/2020 Time: 21:33 Bed 16 Private MD: Temo Tran E Diagnosis: Constipation, unspecified;Alcohol Intoxication Presentation: 04/12 21:34 Chief complaint: EMS states: pt reports having pain RLQ, pt sister reports the patient sg had a fall from this morning but was not witnessed and was not complaining of any pain from the fall per EMS, just states having had two glasses of scotch, chronic ETOH user per pt and pt family. Coronavirus screen: Client denies travel out of the [place] in the last 14 days. Ebola Screen: Patient negative for fever greater than or equal to 101.5 degrees Fahrenheit, and additional compatible Ebola Virus Disease symptoms Patient denies exposure to infectious person. Patient denies travel to an Ebola-affected area in the 21 days before illness onset. No symptoms or risks identified at this time. Initial Sepsis Screen: Does the patient meet any 2 criteria? No. Patient's initial sepsis screen is negative. Does the patient have a suspected source of infection? No. Patient's initial sepsis screen is negative. Risk Assessment: Do you want to hurt yourself or someone else? Patient reports no desire to harm self or others. Onset of symptoms was April 12, 2020. Care prior to arrival: None. Transition of care: patient was not received from another setting of care. 21:34 Method Of Arrival: EMS: [facility] sg 21:34 Acuity: PATRICIA 3 sg Historical: - Allergies: 21:39 adhesive tape; sg 21:39 Codeine; sg 21:39 Diphenhydramine; sg 21:39 Erythromycin; sg 21:39 PENICILLINS; sg 21:39 Tape; sg - PMHx: 21:39 ADD/ADHD; Alcoholism; Anxiety; Carotid blockage; Chronic pain; COPD; Depression; sg Hypertension; - Immunization history:: Adult Immunizations up to date. - Social history:: Smoking status: Patient denies any tobacco usage or history of. Screenin:45 Abuse screen: Denies threats or abuse. Nutritional screening: No deficits noted. jb4 Tuberculosis screening: No symptoms or risk factors identified. Fall Risk None identified. Assessment: 21:44 General: Appears in no apparent distress. comfortable, Behavior is calm, cooperative, jb4 appropriate for age. Pain: Complains of pain in back Pain does not radiate. Pain currently is 10 out of 10 on a pain scale. Pain began 2006 Unable to use pain scale. FLACC scale score is 0 out of 10. Neuro: Level of Consciousness is awake, alert, obeys commands, Oriented to person, place, time, situation. Cardiovascular: Patient's skin is warm and dry. Respiratory: Airway is patent Respiratory effort is even, unlabored, Respiratory pattern is regular, symmetrical. GI: Bowel sounds present X 4 quads. Abd is soft and non tender X 4 quads. Patient currently denies abdominal pain. : No signs and/or symptoms were reported regarding the genitourinary system. EENT: No signs and/or symptoms were reported regarding the EENT system. Derm: Skin is intact, Skin is pink, warm \T\ dry. Musculoskeletal: Circulation, motion, and sensation intact. Range of motion: intact in all extremities. 22:48 Reassessment: Patient appears in no apparent distress at this time. Patient and/or jb4 family updated on plan of care and expected duration. Pain level reassessed. Patient is alert, oriented x 3, equal unlabored respirations, skin warm/dry/pink. PT back from CT. 23:45 Reassessment: Patient and/or family updated on plan of care and expected duration. Pain jb4 level reassessed. PT resting in bed with eyes closed, respirations are even and unlabored, no s/s of pain or distress noted. 04/13 00:23 Reassessment: Patient appears in no apparent distress at this time. Patient and/or jb4 family updated on plan of care and expected duration. Pain level reassessed. Patient is alert, oriented x 3, equal unlabored respirations, skin warm/dry/pink. PT assisted to the restroom via wheelchair. 01:06 Reassessment: Patient and/or family updated on plan of care and expected duration. Pain jb4 level reassessed. Patient is alert, oriented x 3, equal unlabored respirations, skin warm/dry/pink. Provider at the bedside, updating patient on test results and plan of care. 01:20 Reassessment: D/c pending ride home. jb4 02:02 Reassessment: Patient and/or family updated on plan of care and expected duration. Pain jb4 level reassessed. PT is resting in bed with eyes closed, respirations are even and unlabored. no s/s of pain or distress noted. 02:11 Reassessment: PT assisted to the restroom via wheelchair and back to bed. jb4 02:42 Reassessment: Patient appears in no apparent distress at this time. No changes from [facility] previously documented assessment. Patient and/or family updated on plan of care and expected duration. Pain level reassessed. Vital Signs: 04/12 21:37 BP 137 / 75; Pulse 81; Resp 18; Temp 98.0(O); Pulse Ox 95% on R/A; Weight 39.92 kg (R); jb4 Height 4 ft. 10 in. (147.32 cm); Pain 10/10; 22:55 BP 134 / 73; Pulse 79; Resp 16; Pulse Ox 97% on 2 lpm NC; jb4 04/13 00:30 BP 111 / 58; Pulse 76; Resp 16; Pulse Ox 92% on R/A; jb4 01:00 BP 99 / 66; Pulse 77; Resp 18; Pulse Ox 92% on R/A; jb4 02:02 BP 98 / 66; Pulse 74; Resp 16; Pulse Ox 90% on R/A; jb4 02:30 BP 111 / 76; Pulse 80; Resp 16; Pulse Ox 89% on R/A; jb4 04/12 21:37 Body Mass Index 18.39 (39.92 kg, 147.32 cm) [facility] ED Course: 04/12 21:33 Patient arrived in ED. sg 21:34 Temo Tran MD is Private Physician. sg 21:34 Arm band placed on. sg 21:38 Triage completed. sg 21:44 Francisco Rosen, RN is Primary Nurse. jb4 21:45 Patient has correct armband on for positive identification. Bed in low position. Call [facility] light in reach. Side rails up X 1. Pulse ox on. NIBP on. 21:46 Micha Frazier MD is Attending Physician. [facility] 04/13 03:33 No provider procedures requiring assistance completed. IV discontinued, intact, wh bleeding controlled, No redness/swelling at site. Administered Medications: 00:19 Not Given (Physician Discretion): NS 0.9% 500 ml IV at bolus once jb4 Outcome: 01:07 Discharge ordered by MD. mayers 03:30 Discharged to pt discharged to home via EMS wheelchair van for transport, pt left in stable condition with EMT 03:34 Discharged to home [facility] 03:34 Condition: stable 03:34 Discharge instructions given to patient, Instructed on discharge instructions, follow up and referral plans. medication usage, POC Demonstrated understanding of instructions, follow-up care, medications, POC Prescriptions given X 3. 03:34 Patient left the ED. Signatures: Saul Castañeda, RN RN Francisco Botello RN RN jb4 Deanna Madrigal Micha Frazier MD MD mh7 Corrections: (The following items were deleted from the chart) 04/12 22:03 21:37 BP 137 / 75; Pulse 81bpm; Resp 18bpm; Pulse Ox 95% RA; jb4 jb4
--- NOTE | 2020-04-13 01:07 | EDPHYS ---
Physician Documentation [facility] Name: Shilpa Richardson Age: 74 yrs Sex: Female : 1945 Arrival Date: 04/12/2020 Time: 21:33 Bed 16 Private MD: Temo Tran E ED Physician Micha Frazier HPI: 04/12 22:05 This 74 yrs old Female presents to ER via EMS with complaints of Abdominal mh7 Pain. 22:09 The patient presents with abdominal pain in the lower abdomen. Onset: The mh7 symptoms/episode began/occurred today. The symptoms do not radiate. Associated signs and symptoms: Pertinent negatives: nausea, vomiting, and diarrhea, nausea and vomiting, anorexia, blood in stools, chest pain, constipation, diarrhea, dysuria, fever, headache, hematuria, nausea, palpitations, shortness of breath, vaginal discharge, vomiting, vomiting blood. The symptoms are described as intermittent, vague, waxing/waning. Modifying factors: The symptoms are alleviated by nothing, the symptoms are aggravated by nothing. Severity of pain: At its worst the pain was moderate in the emergency department the pain has resolved and did so just prior to arrival. According to EMS patient's sister called due to patient drinking alcohol today and fell. Patient complained of lower abdominal pain but denies any current pain or other complaints.. Historical: - Allergies: 21:39 adhesive tape; sg 21:39 Codeine; sg 21:39 Diphenhydramine; sg 21:39 Erythromycin; sg 21:39 PENICILLINS; sg 21:39 Tape; sg - PMHx: 21:39 ADD/ADHD; Alcoholism; Anxiety; Carotid blockage; Chronic pain; COPD; Depression; sg Hypertension; - Immunization history:: Adult Immunizations up to date. - Social history:: Smoking status: Patient denies any tobacco usage or history of. ROS: 22:09 Constitutional: Negative for fever, chills, and weight loss, Eyes: Negative for injury, mh7 pain, redness, and discharge, ENT: Negative for injury, pain, and discharge, Neck: Negative for injury, pain, and swelling, Cardiovascular: Negative for chest pain, palpitations, and edema, Respiratory: Negative for shortness of breath, cough, wheezing, and pleuritic chest pain, Back: Negative for injury and pain, : Negative for injury, bleeding, discharge, and swelling, MS/Extremity: Negative for injury and deformity, Skin: Negative for injury, rash, and discoloration, Neuro: Negative for headache, weakness, numbness, tingling, and seizure, Psych: Negative for depression, anxiety, suicide ideation, homicidal ideation, and hallucinations, Allergy/Immunology: Negative for hives, rash, and allergies, Endocrine: Negative for neck swelling, polydipsia, polyuria, polyphagia, and marked weight changes, Hematologic/Lymphatic: Negative for swollen nodes, abnormal bleeding, and unusual bruising. Exam: 22:09 Constitutional: This is a well developed, well nourished patient who is awake, alert, mh7 and in no acute distress. Head/Face: Normocephalic, atraumatic. Eyes: Pupils equal round and reactive to light, extra-ocular motions intact. Lids and lashes normal. Conjunctiva and sclera are non-icteric and not injected. Cornea within normal limits. Periorbital areas with no swelling, redness, or edema. Neck: Trachea midline, no thyromegaly or masses palpated, and no cervical lymphadenopathy. Supple, full range of motion without nuchal rigidity, or vertebral point tenderness. No Meningismus. Chest/axilla: Normal chest wall appearance and motion. Nontender with no deformity. No lesions are appreciated. Cardiovascular: Regular rate and rhythm with a normal S1 and S2. No gallops, murmurs, or rubs. Normal PMI, no JVD. No pulse deficits. Respiratory: Lungs have equal breath sounds bilaterally, clear to auscultation and percussion. No rales, rhonchi or wheezes noted. No increased work of breathing, no retractions or nasal flaring. 22:09 Back: No spinal tenderness. No costovertebral tenderness. Full range of motion. Skin: Warm, dry with normal turgor. Normal color with no rashes, no lesions, and no evidence of cellulitis. MS/ Extremity: Pulses equal, no cyanosis. Neurovascular intact. Full, normal range of motion. Neuro: Awake and alert, GCS 15, oriented to person, place, time, and situation. Cranial nerves II-XII grossly intact. Motor strength 5/5 in all extremities. Sensory grossly intact. Cerebellar exam normal. Normal gait. Psych: Awake, alert, with orientation to person, place and time. Behavior, mood, and affect are within normal limits. 22:09 Abdomen/GI: Inspection: abdomen appears normal, Bowel sounds: normal, in all quadrants, Palpation: mild abdominal tenderness, in all quadrants, Rectal exam: the exam is deferred, because of patient request, Indicators: McBurney's point is not tender, Yoo's sign is negative, Rovsing's sign is negative, Obturator sign is negative, Psoas sign is negative, Liver: no appreciated palpable abnormalities, Hernia: not appreciated. Vital Signs: 21:37 BP 137 / 75; Pulse 81; Resp 18; Temp 98.0(O); Pulse Ox 95% on R/A; Weight 39.92 kg (R); 4 Height 4 ft. 10 in. (147.32 cm); Pain 10/10; 22:55 BP 134 / 73; Pulse 79; Resp 16; Pulse Ox 97% on 2 lpm NC; [facility] 04/13 00:30 BP 111 / 58; Pulse 76; Resp 16; Pulse Ox 92% on R/A; [facility] 01:00 BP 99 / 66; Pulse 77; Resp 18; Pulse Ox 92% on R/A; [facility] 02:02 BP 98 / 66; Pulse 74; Resp 16; Pulse Ox 90% on R/A; [facility] 02:30 BP 111 / 76; Pulse 80; Resp 16; Pulse Ox 89% on R/A; [facility] 04/12 21:37 Body Mass Index 18.39 (39.92 kg, 147.32 cm) [facility] MDM: 04/12 21:58 Patient medically screened. [facility] 04/13 01:03 Differential diagnosis: appendicitis, bowel obstruction, diverticulitis, gastritis, [facility] gastroesophageal reflux disease, non-specific abd pain, pancreatitis, Peptic Ulcer Disease, Perf. Duodenal Ulcer, Perf. Gastric Ulcer, Pyelonephritis, Ureterolithiasis, urinary tract infection, Alcohol Intoxication, Substance Abuse, Constipation. Data reviewed: vital signs, nurses notes, EMS record, old medical records, lab test result(s), CBC, drug level(s), acetaminophen, alcohol, salicylate, electrolytes, urinalysis, urine drug screen. Data interpreted: Pulse oximetry: on room air is 95 %. Interpretation: normal. Counseling: I had a detailed discussion with the patient and/or guardian regarding: the historical points, exam findings, and any diagnostic results supporting the discharge/admit diagnosis, lab results, radiology results, to return to the emergency department if symptoms worsen or persist or if there are any questions or concerns that arise at home. Response to treatment: the patient's symptoms have resolved after treatment, the patient's blood pressure is in an acceptable range, mental status has returned to baseline, the patient no longer shows bradycardia, the patient is not short of breath, the patient is not tachycardic, the patient's pain is gone, the patient's temperature has normalized. 04/12 22:01 Order name: Basic Metabolic Panel [facility] 04/12 22:01 Order name: CBC with Diff [facility] 04/12 22:01 Order name: Hepatic Function [facility] 04/12 22:01 Order name: Lipase [facility] 04/12 22:01 Order name: UDS [facility] 04/12 22:01 Order name: ETOH Level [facility] 04/12 22:43 Order name: CBC with Automated Diff; Complete Time: 22:58 [facility] 04/12 22:50 Order name: CREATININE WHOLE BLOOD; Complete Time: 22:58 [facility] 04/12 22:51 Order name: Basic Metabolic Panel; Complete Time: 22:58 [facility] 04/12 22:51 Order name: Liver (Hepatic) Function; Complete Time: 22:58 [facility] 04/12 22:51 Order name: Lipase; Complete Time: 22:58 [facility] 04/12 23:02 Order name: Alcohol Serum/Plasma; Complete Time: 23:31 [facility] 04/12 23:31 Interpretation: ETOH 298. [facility] 04/12 23:49 Order name: Acetaminophen [facility] 04/12 23:49 Order name: Salicylate [facility] 04/12 22:01 Order name: IV Saline Lock; Complete Time: 22:26 [facility] 04/12 22:01 Order name: Labs collected and sent; Complete Time: 22:26 [facility] 04/12 22:01 Order name: Urine Dipstick-Ancillary (obtain specimen); Complete Time: 00:20 [facility] 04/12 22:04 Order name: CT Head C Spine [facility] 04/12 22:04 Order name: CT Abd/Pelvis - IV Contrast Only [facility] 04/13 00:47 Order name: Urine Drug Screen; Complete Time: 00:48 [facility] 04/13 00:49 Order name: Urine Dipstick--Ancillary (enter results) [facility]3 04/13 00:55 Order name: Salicylates Level; Complete Time: 00:59 [facility] 04/13 00:55 Order name: Acetaminophen Level; Complete Time: 00:59 [facility] 04/13 01:08 Order name: Urine Dipstick-Ancillary EDMS Administered Medications: 00:19 Not Given (Physician Discretion): NS 0.9% 500 ml IV at bolus once jb4 Disposition: 06:24 Co-signature as Attending Physician, Micha Frazier MD. [facility] Disposition: 04/13/20 01:07 Discharged to Home. Impression: Constipation, unspecified, Alcohol Intoxication. - Condition is Stable. - Discharge Instructions: Constipation, Adult, High-Fiber Diet, Alcohol Intoxication, [id number]. - Prescriptions for Colace 100 mg Oral Tablet - take 1 tablet by ORAL route every 12 hours; 14 tablet. Lactulose 10 gram/15 mL Oral Solution - take 30 milliliters by ORAL route once daily for 5 days; 150 milliliter. Dulcolax 10 mg Rectal Suppository - insert 1 suppository by RECTAL route every 6 hours As needed; 5 suppository. - Medication Reconciliation Form, Thank You Letter, Antibiotic Education, Prescription Opioid Use form. - Follow up: Private Physician; When: 1 - 2 days; Reason: Worsening of condition, Recheck today's complaints, Continuance of care, Re-evaluation by your physician. - Problem is an acute exacerbation. - Symptoms have improved. Signatures: Dispatcher [employer] EDOR Saul Castañeda RN RN Micha Frazier MD MD [facility] Francisco Rosen RN jb4 Corrections: (The following items were deleted from the chart) 04/12 22:09 22:05 The patient presents with abdominal pain in the lower abdomen, [place] [address] : 22:05 Onset: The symptoms/episode began/occurred today, [place] [address] : 22:05 The symptoms do not radiate. [place] [address] : 22:05 Associated signs and symptoms: none. [place] [address] : 22:05 The symptoms are described as intermittent, vague, waxing/waning, [place] [address] : 22:07 The patient presents to the emergency department [place] [address] 04/13 01:08 01:07 04/13/2020 01:07 Discharged to Home. Impression: Constipation, unspecified; mh7 Alcohol Withdrawal. Condition is Stable. Forms are Medication Reconciliation Form, Thank You Letter, Antibiotic Education, Prescription Opioid Use. Follow up: Private Physician; When: 1 - 2 days; Reason: Worsening of condition, Recheck today's complaints, Continuance of care, Re-evaluation by your physician. Problem is an acute exacerbation. Symptoms have improved. mh7 03:34 01:08 04/13/2020 01:07 Discharged to Home. Impression: Constipation, unspecified; sg Alcohol Intoxication. Condition is Stable. Discharge Instructions: Constipation, Adult, Alcohol Intoxication, [id number]. Forms are Medication Reconciliation Form, Thank You Letter, Antibiotic Education, Prescription Opioid Use. Follow up: Private Physician; When: 1 - 2 days; Reason: Worsening of condition, Recheck today's complaints, Continuance of care, Re-evaluation by your physician. Problem is an acute exacerbation. Symptoms have improved. mh7
[2020-04-13 01:08] LABS: Urine Blood NEGATIVE (NEG); Urine Glucose NEGATIVE (NEG); Urine Protein NEGATIVE (NEG)
[2020-04-13 03:41] VITALS: TEMP 98
[2020-04-13 03:48] VITALS: BP 111/76; O2SAT 89
--- NOTE | 2020-04-15 12:32 | RAD REPORT ---
EXAM DESCRIPTION: CT - CTHCSPWOC - 04/12/2020 10:49 pm CLINICAL HISTORY: Fall/pain COMPARISON: 04/08/2020 TECHNIQUE: Axial CT of the head obtained from the skull apex to the skull base without contrast. Axi al CT images of the cervical spine obtained from the skull base through the thoracic inlet. Sagittal and coronal reformatted images available. FINDINGS: CT head: No acute intracranial hemorrhage identified. No mass, mass effect, shift of the midline, abnormal ext ra-axial fluid collection or CT evidence of acute ischemic change identified. Mild enlargement of riaz tricular system and sulcal spaces compatible with cerebral atrophy. Confluent areas of hypodensity throughout the supratentorial white matter are nonspecific and may represent sequela of chronic small vessel ischemic change. Focal area of encephalomalacia in the right frontal lobe likely related to r emote infarction. The visualized paranasal sinuses and the mastoids are clear. No skull fracture identified. Visual ized orbits and globes are unremarkable. Cervical CT: Alignment of the cervical spine is maintained without evidence of subluxation. The atlantoaxial, at lantodental, and occipitoatlantal intervals are preserved. No fracture identified. Vertebral body h eight preserved. Prevertebral soft tissues are unremarkable. Multilevel severe degenerative disc height narrowing, endplate spondylosis, and facet arthropathy. Multilevel osseous neural foraminal narrowing. 3 mm anterior subluxation of C2 over C3 is stable and likely degenerative. Visualized skull base is intact. No fracture of the visualized facial bones. Visualized mastoid air c ells and paranasal sinuses are well aerated. Visualized thyroid is unremarkable. No cervical lymphadenopathy. No pneumothorax in the visualized lung apices. Carotid artery atherosclerosis. Right upper lobe granuloma. IMPRESSION: 1. No acute intracranial abnormality. 2. No acute fracture or subluxation of the cervical spine. 3. Severe multilevel degenerative change of the cervical spine. This exam was performed according to our departmental dose-optimization program, which includes autom ated exposure control, adjustment of the mA and/or kV according to patient size and/or use of iterati ve reconstruction technique. Electronically signed by: Scar Cifuentes 04/12/2020 11:05 PM CDT Due to temporary technical issues with the PACS/Fluency reporting system, reports are being signed by the in house radiologist without review as a courtesy to ensure prompt reporting. The interpreting r adiologist is fully responsible for the content of the report.
--- NOTE | 2020-04-15 12:33 | RAD REPORT ---
EXAM DESCRIPTION: CT - Abdomen Pelvis W Contrast - 04/12/2020 10:57 pm CLINICAL HISTORY: ABD PAIN COMPARISON: None. TECHNIQUE: CT ABDOMEN PELVIS WITH IV CONTRAST on 04/12/2020 10:04 PM CDT This exam was performed according to our departmental dose-optimization program, which includes autom ated exposure control, adjustment of the mA and/or kV according to patient size and/or use of iterati ve reconstruction technique. FINDINGS: Lower lungs are clear. Abdomen: The liver is normal in appearance. There is mild to moderate biliary dilatation with the ext rahepatic common bile duct measuring 2 cm. Cholecystectomy was performed. The pancreas and spleen are normal in appearance. The adrenal glands and kidneys are unremarkable. Abdominal aorta is densely calcified without aneurysm. There is no free air. There is no retroperiton eal adenopathy. Pelvis: There is large amount of stool throughout the colon. Urinary bladder is unremarkable. There i s no free fluid. Uterus is normal in size. Appendix is not clearly seen. Skeleton: There are no acute osseous findings. No suspicious bony lesions. IMPRESSION: Extensive biliary dilatation with no clear etiology. Constipation. No definite acute inflammatory process. Electronically signed by: Padilla Grover MD 04/12/2020 11:06 PM CDT Due to temporary technical issues with the PACS/Fluency reporting system, reports are being signed by the in house radiologist without review as a courtesy to ensure prompt reporting. The interpreting r adiologist is fully responsible for the content of the report.
== END 2020-04-13 03:34 | disposition home or self-care (01) ==
LOC: ER 21:31
DX: K59.00 Constipation, unspecified (principal); F10.229 Alcohol dependence with intoxication, unspecified; Z88.0 Allergy status to penicillin; Z88.3 Allergy status to other anti-infective agents; Z88.5 Allergy status to narcotic agent; Z88.8 Allergy status to other drugs, medicaments and biological substances
CPT/HCPCS: 85025; 80048; 36415; 80320; 80329 ×2; 82565; 80076; 80307 ×8; 81003; 83690; 70450; 72125; 74177; 99283; Q9967; J7040

== ENCOUNTER 2020-05-05 15:03 | Observation (INO) | payer OTHER ==
--- OUTSIDE RECORDS SUMMARY | 2020-05-05 15:05 | XMS REPORT ---
[...] Status Dosage System Date Date Amlodipine ND 71524641523 5 MG Orally Active 1 tab let Besylate Once a day Metoprolol ND 03872327370 25 MG Orally Active 1 ta blet Tartrate Twice a day with food Duloxetine HCl ND 29830175932 20 MG Orally Active 1 capsule Twice a day Clonazepam ND 53315346580 0.5 MG Orally Active 1 t ablet at Once a day as bedtime needed Gabapentin ND 25062795440 300 MG Orally November Active 1 c apsule Once a day in 2019 as needed evening for pain Acyclovir ND 92664503931 800 MG Orally December Active 1 ta blet Five times 2019 daily Omeprazole ND 36042903840 20 MG Orally Active 1 ca psule Once a day Levetiracetam ND 56678924392 500 MG Orally Active 1 tablet Twice a day Simvastatin ND 64037605656 20 MG Orally Active 1 t ablet in Once a day the evening Stiolto Respimat ND 68658756457 2.5mcg/2.5mcg Activ e 2 puffs inhaled Once a day Combivent ND 19091522933 20MCG /100 MCG Active 1 p uff as Respimat Oral Inhalation needed 4 times daily Gabapentin ND 09715971179 100 MG Orally December Active 1 c apsule Twice a day 2019 as needed for severe pain Amitriptyline [facility] 11876411177 50 MG Orally Active 1 tablet at HCl Once a day bedtime HydrOXYzine HCl [facility] 24365812154 25 MG Orally December Active 1 tablet as every 8 hrs 2019 needed for itching Restasis [facility] 02293951241 0.05 % Active 1 drop into Ophthalmic affected Twice a day eye Results No Known Results Summary Purpose eClinicalWorks Submission
--- OUTSIDE RECORDS SUMMARY | 2020-05-05 15:05 | XMS REPORT | Continuity of Care Document ---
:1945 Author Organization [facility] t Address [address] [place] [address] Care Team Providers Name Role Phone Unavailable Unavailable Unavailable Problems Condition Condition Condition Status Onset Resolution Last Treating Co mments Source Name Details Category Date Date Treatment Clinician Date High High Problem Active [facility] cholester[facility] cholestero Caridad kes - l l [facility] Essential Essential Problem Active [facility] hypertensi hypertensi Caridad kes - on on [facility] Low back Low back [...] with [facility] anxiety anxiety [facility] Dry mouth Dry mouth Problem Active [facility] 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 Outpati ent Clinics History of History of Problem Active [facility] carotid carotid [facility] - endarterec endarterec Me moria minda minda l [facility] Hyperlipid Hyperlipid Problem Active [facility] emia, emia, [facility] - unspecifie unspecifie Me moria d d l hyperlipid hyperlipid Ou tpati emia type emia type ent Clinics Lumbago Lumbago Problem Active [facility] with with [facility] - sciatica, sciatica, Raghavendra shereen unspecifie unspecifie l d side d side [facility] Scratches Scratches Problem Active [facility] Multiple Multiple Problem Active [facility] bruises [facility]ises [facility] Right arm Right arm Problem Active [facility] pain pain [facility] Status Status Problem Active [facility] post fall post fall [facility] Allergies, Adverse Reactions, Alerts Allergy Allergy Status Severity Reaction(s) Onset Inactive Treating Comm ents Source Name Type Date Date Clinician codeine Adverse Active Itching/"cli [facility] Reaction mbing the [facility] - regan" [facility] Medications Ordered Filled Start Stop Current Ordering Indication Dosage Frequency Signature Comments Components Source Medication Medication Date Date Medication? Clinician (SIG) Name Name Cyclobenzap Cyclobenzap 2020-0 2020- Yes Libra as [facility] rine HCl rine HCl 6 10-09 Millender directed [facility] - 00:00: 00:00 Memoria 00 :00 [facility] [address] Amitriptyli Amitriptyli Yes Libra [address] [facility] ne HCl ne HCl Millender at bedtime [facility] Simvastatin Simvastatin Yes Libra [address] [facility] Millender in the [facility] - evening [facility] Duloxetine Duloxetine Yes Libra [address] [facility] HCl HCl Millender [facility] Clonazepam Clonazepam Yes Libra [address] [facility] Millender at bedtime [facility] Restasis Restasis Yes Libra [address] [facility] Millender into [facility] - affected Memoria eye l [facility] Amlodipine Amlodipine Yes Libra [address] [facility] Besylate Besylate Millender Caridad s - [facility] Omeprazole Omeprazole Yes Libra [address] [facility] Millender [facility] Metoprolol Metoprolol Yes Libra [address] [facility] Tartrate Tartrate Millender Caridad kes - [facility] l Outpat[facility] ent Clinics Lumigan Lumigan Yes Libra [address] [facility] Millender into [facility] - affected Memoria eye in the l evening Outpati ent Clinics Gabapentin Gabapentin Yes Libra [address] [facility] Millender as needed [facility] - for pain [facility] Levetiracet Levetiracet Yes Libra [address] [facility] am am Millender [facility] - [facility] Combivent Combivent 2020- No Libra [address] [facility] Respimat Respimat 01-10 Millender needed [facility] - 00:00 [facility] :[facility] l Outpati ent Clinics Stiolto Stiolto 2020- No Libra [address] Respimat Respimat 07 Millender L ukes - 00:00 Memoria :00 l Outpati ent Clinics Procedures This patient has no known procedures. Encounters Start End Encounter Admission Attending Care Care Encounter Source Date/Time Date/Time Type Type Clinicians Facility Department ID 2020-04-11 2020-04-11 Outpatient Lexi Elliottt [id number] [facility] 15:42[facility]00 15:42:00 [facility] Medicine Medicine Outpati ent Clinics 2020-04-04 2020-04-04 [place] [id number] [facility] 11:00:00 11:00:00 [facility] Medicine l Medicine Outpati ent Clinics 2020-04-02 2020-04-02 [place] [id number] [facility] 16:41:00 16:41:00 [facility] Medicine l Medicine Outpati ent Clinics 2020-03-27 2020-03-27 [place] [facility] [id number] [facility] 09:05:00 09:05:00 [facility] Medicine l Medicine Outpati ent Clinics 2020-03-18 2020-03-18 Outpatient Leix [facility] [id number] [facility] 14:30:00 14:30:00 [facility] Medicine Medicine Outpati ent Clinics 2020-03-04 2020-03-04 [place] [id number] 15:57:00 15:57:[address] [facility] Medicine l Medicine Outpati ent Clinics 2020-03-04 2020-03-04 [place] [facility] [id number] [facility] 11:00:00 11:00:00 [facility] Medicine l Medicine Outpati ent Clinics 2020-02-28 2020-02-28 [place] [id number] [facility] 16:56:00 16:56:[address] [facility] Medicine l Medicine Outpati ent Clinics 2020-02-25 2020-02-25 [place] [id number] [facility] 18:47:00 18:47:00 [facility] Medicine l Medicine Outpati ent Clinics 2020-02-21 2020-02-21 [place] [id number] 10:01:00 10:01:00 [facility] Medicine l Medicine Outpati ent Clinics 2020-02-16 2020-02-16 [facility] [id number] [facility] 11:00:00 11:00:00 [facility] Medicine l Medicine Outpati ent Clinics 2020-02-14 2020-02-14 [facility] [id number] [facility] 18[facility]14:00 18:14:00 [facility] Medicine l Medicine Outpati ent Clinics 2020-02-09 2020-02-09 [place] [id number] [facility] 16[facility]33:00 16:33:[address] [facility] Medicine l Medicine Outpati ent Clinics 2020-02-01 2020-02-01 [place] [id number] [facility] 09:00:00 09:00:00 [facility] Medicine l Medicine Outpati ent Clinics 2019-12-25 2019-12-25 [place] [facility] [id number] [facility] 10:00:00 10:00:00 [facility] Medicine l Medicine Outpati ent Clinics 2019-11-24 2019-11-24 Outpatient Rennytrang Fl[place] [id number] 08:25:00 08:25:00 [facility] 2019-11-15 2019-11-15 Outpatient Lexi Hines [id number] 10:30:00 10:30:00 [facility] ent Clinics Results This patient has no known results.
--- OUTSIDE RECORDS SUMMARY | 2020-05-05 15:06 | XMS REPORT ---
:1945 [facility] Team Providers Name Role [...] Status Dosage System Date Date Combivent Respimat [facility] 90423293072 20MCG /100 MCG Ac tive 1 puff as Oral Inhalation needed 4 times daily Duloxetine HCl ND 95267850244 20 MG Orally Active 1 capsule Twice a day Omeprazole ND 83687079139 20 MG Orally Active 1 ca psule Once a day Restasis [facility] 68833429519 0.05 % Active 1 drop Ophthalmic into Twice a day affected eye Cyclobenzaprine ND 60062140252 5 MG Orally 1-2 March 04March Act rosalina as HCl tablets once 2020 05, daily [address] [facility] 71222042791 0.05 % Active 1 drop Ophthalmic into Twice a day affected eye Metoprolol [facility] 21236457372 50 MG Orally Active 1 ta blet Tartrate Twice a day with food Clonazepam [facility] 93742359523 0.5 MG Orally Active 1 t ablet Once a day as at bedtime needed Stiolto Respimat [facility] 65734862633 2.5mcg/2.5mcg Activ e 2 puffs inhaled Once a day Combivent Respimat [facility] 97090134293 20MCG /100 MCG Ac tive 1 puff Oral Inhalation 4 times daily, not to exceed 6 in [address] [facility] 55302143219 300 MG Orally November Active 1 c apsule Once a day in 2019 as needed evening for pain Lumigan [facility] 56055451431 0.01 % Active 1 drop Ophthalmic Once into a day affected eye in the evening Levetiracetam ND 21821540920 250 MG Orally Active 1 tablet Twice a day Simvastatin ND 19530931047 20 MG Orally Active 1 t ablet Once a day in the evening Amlodipine ND 41268221836 5 MG Orally Active 1 tab let Besylate Once a day Amitriptyline HCl ND 76374816225 50 MG Orally Activ e 1 tablet Once a day at bedtime Results No Known Results Summary Purpose eClinicalWorks Submission
--- OUTSIDE RECORDS SUMMARY | 2020-05-05 15:06 | XMS REPORT ---
:1945 [facility] Team Providers Name Role Phone [...] Status Dosage System Date Date Simvastatin ND 62237379565 20 MG Orally Active 1 t ablet in Once a day the evening Stiolto Respimat ND 66271512468 2.5mcg/2.5mcg Activ e 2 puffs inhaled Once a day Acyclovir ND 43732388353 800 MG Orally December Active 1 ta blet Five times 2019 daily Amitriptyline ND 85823561427 50 MG Orally Active 1 tablet at HCl Once a day bedtime Restasis ND 69446942317 0.05 % Active 1 drop into Ophthalmic affected Twice a day eye Gabapentin ND 53909880558 100 MG Orally December Active 1 c apsule Twice a day 2019 as needed for severe pain Clonazepam ND 10525389826 0.5 MG Orally Active 1 t ablet at Once a day as bedtime needed Gabapentin ND 91035736996 300 MG Orally November Active 1 c apsule Once a day in 2019 as needed evening for pain HydrOXYzine HCl ND 20870823396 25 MG Orally December Active 1 tablet as every 8 hrs 2019 needed for itching Omeprazole ND 11469071782 20 MG Orally Active 1 ca psule Once a day Duloxetine HCl [facility] 63013623368 20 MG Orally Active 1 capsule Twice a day Levetiracetam [facility] 14708252725 250 MG Orally Active 1 tablet Twice a day Metoprolol [facility] 18657720620 50 MG Orally Active 1 ta blet Tartrate Twice a day with food Lumigan [facility] 30168472948 0.01 % Active 1 drop into Ophthalmic Once affected a day eye in the evening Combivent [facility] 45207299409 20MCG /100 MCG Active 1 p uff Respimat Oral Inhalation 4 times daily, not to exceed 6 in 24 hrs Amlodipine ND 96560669037 5 MG Orally Active 1 tab let Besylate Once a day Combivent [facility] 06546876975 20MCG /100 MCG Active 1 p uff as Respimat Oral Inhalation needed 4 times daily Restasis ND 98617415248 0.05 % Active 1 drop into Ophthalmic affected Twice a day eye Results No Known Results Summary Purpose eClinicalWorks Submission
--- OUTSIDE RECORDS SUMMARY | 2020-05-05 15:07 | XMS REPORT ---
:1945 [facility] Care Team Providers Name Role Phone Libra Eduardo Provider Role Unavailable Allergies, Adverse Reactions, Alerts Substance Reaction Event Type codeine Itching/"climbing the regan" Non Drug Al lergy Problems Problem Type Condition Code Onset Dates Condition Statu s Assessment Other chronic pain G89.29 Active Assessment Depression with anxiety F41.8 Acti ve Assessment Seizures R56.9 Active Assessment Low back pain M54.5 Active Assessment Gastroesophageal reflux disease, K21.9 Active esophagitis presence not specified Assessment Chronic obstructive pulmonary J44.9 Active disease, unspecified COPD type Assessment Hyperlipidemia, unspecified E78.5 Active hyperlipidemia type Assessment History of carotid endarterectomy Z98.890 Active Assessment Atherosclerosis of left carotid I65.22 Active artery Problem Dry mouth R68.2 Active Assessment Essential hypertension I10 Activ e Problem Other chronic pain G89.29 Active Problem [...] Start End Status Dosage System Date Date Cyclobenzaprine [facility] 68039013457 5 MG Orally 1-2 March 04Jun Act rosalina as HCl tablets once 2019 09, directed daily 2019 Restasis [facility] 84694684657 0.05 % Active 1 drop Ophthalmic into Twice a day affected eye Simvastatin ND 83187140621 20 MG Orally Active 1 t ablet Once a day in the evening Clonazepam ND 71588631742 0.5 MG Orally Active 1 t ablet Once a day as at bedtime needed Amitriptyline HCl ND 87058688587 50 MG Orally Activ e 1 tablet Once a day at bedtime Duloxetine HCl [facility] 20985323010 20 MG Orally Active 1 capsule Twice a day Omeprazole ND 56748097113 20 MG Orally Active 1 ca psule Once a day for reflux Lumigan ND 72272461792 0.01 % Active 1 drop Ophthalmic Once into a day affected eye in the evening Combivent Respimat [facility] 43003777265 20MCG /100 MCG Ac tive 1 puff Oral Inhalation 4 times daily, not to exceed 6 in 24 hrs Amlodipine ND 24141772511 5 MG Orally Active 1 tab let Besylate Once a day Metoprolol [facility] 06146976966 50 MG Orally Active 1 ta blet Tartrate Twice a day Restasis [facility] 15232237815 0.05 % Active 1 drop Ophthalmic into Twice a day affected eye Stiolto Respimat [facility] 27945045928 2.5mcg/2.5mcg January Activ e 2 puffs inhaled Once a 07, day 2020 Gabapentin [facility] 66083292617 100 MG Orally Active 1 c apsule Once a day in as needed evening for pain Combivent Respimat [facility] 29648217743 20MCG /100 MCG January Ac tive 1 puff as Oral Inhalation 07, needed 4 times daily 2020 Levetiracetam [facility] 07765899275 500 MG Orally Active 1 tablet Twice a day Results No Known Results Summary Purpose eClinicalWorks Submission
[2020-05-05] MEDS ORDERED: NA CHLORIDE 0.9% 2,000 ML ONE (15:39)
[2020-05-05] MEDS ORDERED: ACETAMINOPHEN 325 MG TABLET ONE (15:48)
[2020-05-05 15:58] LABS: Absolute Lymphocytes (CBC) 0.6 K/uL (0.7-4.9); Basophils % 0.1 % (0-1.3); Hematocrit 37.1 % (36.0-45.0); Lymphocytes % 3.4 % (15.3-44.8); MPV 7.2 fL (7.6-11.3); RBC Red Blood Cell Count 4.09 M/uL (3.86-4.86)
[2020-05-05 16:15] LABS: ALT/SGPT 24 U/L (12-78); AST/SGOT 18 U/L (15-37); Albumin 3.5 g/dL (3.4-5.0); Alkaline Phosphatase 160 U/L (45-117); Amylase 51 U/L (25-115); BUN Blood Urea Nitrogen 20 mg/dL (7-18); Bicarbonate 26 mmol/L (21-32); Bilirubin Direct 0.3 mg/dL (0-0.2); Bilirubin Total 0.9 mg/dL (0.2-1.0); CKMB Creatine Kinase MB < 1.0 ng/mL (0.3-3.6); Creatine Phosphokinase 43 U/L (26-192); Glucose Level 93 mg/dL (74-106); Lipase 46 U/L (73-393); Potassium 4.2 mmol/L (3.5-5.1); Protein, Total 7.9 g/dL (6.4-8.2); Sodium Level 130 mmol/L (136-145); Troponin (Emerg Dept Use Only) < 0.02 ng/mL (0.0-0.045)
[2020-05-05] MEDS ORDERED: ACETAMINOPHEN 500 MG TAB PO PRN (16:23)
[2020-05-05] MEDS ORDERED: ALBUTEROL 2.5 MG/3 ML NEB SOL NEB PRN (16:23)
[2020-05-05] MEDS ORDERED: dexAMETHasone 10 MG/ML VIAL ONE (16:25)
[2020-05-05] MEDS ORDERED: Levofloxacin500mg IV 500 MG/100 ML BAG IV ONE (16:25)
--- NOTE | 2020-05-05 16:28 | P.HP ---
Certification for Inpatient With expected LOS: <2 Midnights Practitioner: I am a practitioner with admitting privileges, knowledge of patient current condition, hospital course, and medical plan of care. Services: Services provided to patient in accordance with Admission requirements found in Title 42 Section 412.3 of the Code of Federal Regulations Patient History Date of Service: 05/05/20 (Hospitalist) Reason for admission: COPD exacerbation History of Present Illness: Patient is 74 years of age well known to me became worse over the past 4 days currently I had prescribed a trilogy we she did not like became progressively worse at cough congestion some fever is no oxygen at home denies any other complaint Allergies adhesive tape Allergy (Verified 11/28/18 21:48) blisters codeine Allergy (Verified 11/28/18 21:48) Itching diphenhydramine [From Benadryl] Allergy (Verified 11/28/18 21:48) Itching Penicillins Allergy (Verified 11/28/18 21:48) Anaphylaxis Erythromycin Allergy (Severe, Uncoded 11/28/18 21:48) Nausea/Vomiting Home Medications: Ipratropium/Albuterol Sulfate [Combivent Respimat 20-100 Mcg] 1 puff IH QID PRN 12/08/18 Simvastatin 20 tab PO DAILY 12/08/18 Omeprazole [Prilosec] 40 mg PO DAILY 12/10/18 Amitriptyline HCl 50 mg PO BEDTIME 07/22/19 Bimatoprost [Lumigan Opthalmic Drops*] 1 drop EACH EYE DAILY 07/22/19 Cyclosporine [Restasis] 1 drop EACH EYE BID 07/22/19 Duloxetine HCl [Cymbalta] 30 mg PO DAILY 07/22/19 clonazePAM [Clonazepam] 0.5 mg PO TID 07/22/19 Folic Acid 1 mg PO DAILY #30 tablet 07/25/19 Thiamine HCl [Vitamin B-1*] 100 mg PO DAILY #30 tablet 07/25/19 levETIRAcetam [Keppra*] 500 mg PO BID #30 tab 07/25/19 Amlodipine [Norvasc*] 10 mg PO DAILY #30 tab 01/12/20 Apixaban [Eliquis *] 2.5 mg PO BID #60 tablet 01/12/20 Aspirin [Aspirin EC 81 MG] 162 mg PO DAILY #60 tablet. 01/12/20 Ensure High Protein 237 ml PO TID #90 can 01/28/20 Metoprolol Tartrate [Lopressor*] 25 mg PO BID #60 tab 01/28/20 - Past Medical/Surgical History Diabetic: No -: COPD -: HTN -: Osteoporosis -: Depression with anxiety -: Carotid arterial disease -: Macular Degenartion -: Hyperlipidemia -: Cataracts -: Cataract sx Rt eye -: Carotid enterectomy -: Cholecystectomy -: C-sections x3 -: Tonsillectomy Psychosocial/ Personal History: She is , she has 2 children, she lives with a sister. She does not work. - Family History Father -: Heart disease, Lung disease Mother -: Stroke Notes: TIA's - Social History Alcohol use: Yes CD- Drugs: No Caffeine use: Yes Review of Systems 10-point ROS is otherwise unremarkable General: Weakness Respiratory: Cough, Shortness of Breath Physical Examination - Physical Exam General: Alert, Moderate distress Respiratory: Diminished, Expiratory wheezes Cardiovascular: No edema, Normal S1 S2 Gastrointestinal: Normal bowel sounds, Soft and benign Musculoskeletal: No clubbing, No swelling Integumentary: No rashes, No breakdown Neurological: Normal speech - Studies Laboratory Data (last 24 hrs) 05/05/20 15:25: WBC 18.0 H, Hgb 12.2, Hct 37.1, Plt Count 448 H 05/05/20 15:25: Sodium 130 L, Potassium 4.2, BUN 20 H, Creatinine 1.08, Glucose 93, Total Bilirubin 0.9, AST 18, ALT 24, Alkaline Phosphatase 160 H, Amylase 51, Lipase 46 L Assessment and Plan - Problems (Diagnosis) (1) COPD exacerbation Onset Date: 06/03/17 Current Visit: No Status: Acute Plan: Patient is 74 years of age admitted with COPD exacerbation chest chest x-ray is consistent with COPD there is no evidence of pneumonia are white count is elevated chemistries reviewed coronal virus test is pending patient is low risk continue with bronchodilators steroids and antibiotics evaluate for home O2 - Advance Directives Does patient have a Living Will: No Does patient have a Durable POA for Healthcare: No
--- NOTE | 2020-05-05 16:29 | EDPHYS ---
Physician Documentation [facility] Name: Shilpa Richardson Age: 74 yrs Sex: Female : 1945 Arrival Date: 05/05/2020 Time: 15:08 Bed 7 Private MD: ED Physician Rashmi Coates HPI: 05/05 15:35 This 74 yrs old Female presents to ER via EMS with complaints of Shortness Of cp Breath. 15:35 The patient or guardian reports difficulty breathing. cp 15:35 Onset: The symptoms/episode began/occurred yesterday. Associated signs and symptoms: cp Pertinent positives: fever, Pertinent negatives: chest pain, diarrhea, vomiting. Severity of symptoms: in the emergency department the symptoms are unchanged despite home interventions. The patient has experienced similar episodes in the past. Historical: - Allergies: 15:12 adhesive tape; hb 15:12 Codeine; hb 15:12 Diphenhydramine; hb 15:12 Erythromycin; hb 15:12 PENICILLINS; hb 15:12 Tape; hb - Home Meds: 15:12 alprazolam 1 mg Oral tab BID [Active]; amlodipine 2.5 mg tab 1 tab once daily [Active]; hb atenolol 25 mg Oral tab once daily [Active]; baclofen 10 mg Oral tab BID [Active]; clonidine HCl 0.1 mg Oral tab [Active]; Combivent Inhl [Active]; hydrocodone-acetaminophen 7.5-325 mg/15 mL Oral soln take one tablespoon TID [Active]; Lyrica 100mg Oral 2 times per day [Active]; meloxicam 15 mg Oral tab 1 tab once daily [Active]; Restasis ophthalmic 1 drop 2 times per day [Active]; Silenor 6 mg Oral tab 1 tab once daily [Active]; simvastatin 20 mg Oral tab once daily [Active]; Stiolto Respimat 2.5-2.5 mcg/actuation inhalation mist 2 puffs once daily [Active]; - PMHx: 15:12 Alcoholism; Anxiety; ADD/ADHD; Carotid blockage; Chronic pain; COPD; Depression; hb Hypertension; - Immunization history:: Adult Immunizations up to date. - Social history:: Smoking status: Patient denies any tobacco usage or history of. ROS: 15:40 Constitutional: Positive for chills, fever, Negative for body aches, poor PO intake. cp 15:40 Eyes: Negative for injury, pain, redness, and discharge. cp 15:40 Cardiovascular: Negative for chest pain, edema. 15:40 Respiratory: Positive for shortness of breath, at rest. 15:40 Abdomen/GI: Negative for abdominal pain, nausea, vomiting, and diarrhea. 15:40 : Negative for urinary symptoms. 15:40 Skin: Negative for rash. 15:40 Neuro: Negative for altered mental status. 15:40 All other systems are negative. cp Exam: 15:45 Constitutional: The patient appears alert, awake, non-diaphoretic, well developed, well cp nourished, in obvious distress, mildly distressed, obviously ill. 15:45 Head/Face: Normocephalic, atraumatic. cp 15:45 Eyes: Periorbital structures: appear normal, Pupils: equal, round, and reactive to cp light and accomodation, Conjunctiva: normal, no exudate, no injection, Sclera: no appreciated abnormality, Lids and lashes: appear normal, bilaterally. 15:45 ENT: External ear(s): are unremarkable, Nose: is normal, Posterior pharynx: Airway: no evidence of obstruction, patent. 15:45 Neck: ROM/movement: Meningeal signs: are not present, nuchal rigidity, is not appreciated. 15:45 Chest/axilla: Inspection: normal, Palpation: is normal, no crepitus, no tenderness. 15:45 Cardiovascular: Rate: tachycardic, Rhythm: regular, Edema: is not appreciated, JVD: is not appreciated. 15:45 Respiratory: moderate respiratory distress is noted, Respirations: shallow respirations, that is moderate, tachypnea, that is mild, Breath sounds: decreased breath sounds, that are moderate, throughout, stridor, is not appreciated, wheezing: is not appreciated, Respiratory rate: 22 15:45 Abdomen/GI: Inspection: abdomen appears normal, Palpation: abdomen is soft and non-tender, in all quadrants. 15:45 Back: pain, is absent. 15:45 Skin: cellulitis, is not appreciated, no rash present. 15:45 Neuro: Orientation: to person, place \T\ time. Mentation: slow to respond, Motor: moves all fours. Vital Signs: 15:08 BP 185 / 87; Pulse 88; Resp 19; Temp 102.7(O); Pulse Ox 82% on R/A; Weight 52.16 kg; hb Height 5 ft. 1 in. (154.94 cm); Pain 0/10; 15:30 BP 157 / 97; Pulse 105; Resp 22; Pulse Ox 94% on 3 lpm NC; hb 16:28 BP 166 / 74; Pulse 100; Resp 21; Pulse Ox 96% on 3 lpm NC; hb 16:45 BP 159 / 77; Pulse 98; Resp 21; Pulse Ox 93% on 3 lpm NC; hb 17:39 BP 161 / 85; Pulse 95; Resp 22; Temp 99(O); Pulse Ox 94% 3 lpm ; hb 18:00 BP 172 / 99; Pulse 89; Resp 14; Pulse Ox 98% on 3 lpm NC; hb 18:41 BP 179 / 76; Pulse 86; Resp 21; Pulse Ox 97% on 3 lpm NC; hb 19:15 BP 165 / 86; Pulse 82; Resp 11; Temp 97.7; Pulse Ox 99% on 3 lpm NC; jb4 15:08 Body Mass Index 21.73 (52.16 kg, 154.94 cm) hb MDM: 15:20 Patient medically screened. cp 16:25 Physician consultation: Jerome Abreu MD was contacted at 16:20, regarding admission, cp to the medical/surgical unit. patient's condition, in the emergency department to see patient at 16:20. 17:00 Data reviewed: vital signs, nurses notes, lab test result(s), radiologic studies, plain cp films, I have discussed the patient's presentation/case with the attending Emergency Department Physician; and as a result, I will admit patient. 17:00 Antibiotic administration: Levaquin given. Response to treatment: the patient's cp symptoms have markedly improved after treatment. 17:00 Post IV fluid administration reassessment for Sepsis: Sepsis focused reassessment cp complete. Focused Assessment performed: May 05, 2020 at 17:00 Heart: Regular rate/rhythm noted. Current vital signs reviewed: Yes. Neuro: Neurological examination improved from previous exam. Cardio: Cardiovascular examination improved from previous exam. Heart rate and blood pressure have improved. Respiratory: Respiratory exam improved from previous exam. 05/05 15:17 Order name: Amylase, Serum hb 08/30 15:17 Order name: Basic Metabolic Panel hb 05/05 15:17 Order name: Blood Culture Adult (2) hb 05/05 15:17 Order name: CBC with Diff hb 05/05 15:17 Order name: Ckmb hb 05/05 15:17 Order name: CPK; Complete Time: 16:25 hb 0830 15:17 Order name: Lactate; Complete Time: 16:25 hb 08 15:17 Order name: LFT's; Complete Time: 16:25 hb 08 16:26 Interpretation: Normal except: ALK 160; BILID 0.3; GLOB 4.4; A/G 0.8. cp / 15:17 Order name: Lipase; Complete Time: 16:25 hb 08 15:17 Order name: Procalcitonin; Complete Time: 16:55 hb 08 16:56 Interpretation: Abnormal: Procalcitonin 3.08. cp / 15:17 Order name: Protime (+inr); Complete Time: 16:55 hb 05/05 15:17 Order name: Ptt, Activated; Complete Time: 16:55 hb 05/05 15:17 Order name: Troponin (emerg Dept Use Only); Complete Time: 16:25 hb 08 15:17 Order name: Urine Microscopic Only hb 05/05 15:18 Order name: Amylase; Complete Time: 16:25 EDMS 08 15:18 Order name: Basic Metabolic Panel; Complete Time: 16:25 EDMS 0830 16:26 Interpretation: Normal except: NA 130; CL 93; BUN 20; GFR 50. cp 05/05 15:18 Order name: Blood Culture EDMS 05/05 15:18 Order name: CBC with Automated Diff; Complete Time: 16:55 EDMS 08 16:27 Interpretation: Normal except: WBC 18.0; PLT 448; MPV 7.2; ERVIN% 90.7; LYM% 3.4; NEUT A cp 16.3; LYMA 0.6. 05/05 15:18 Order name: CKMB Creatine Kinase MB; Complete Time: 16:25 EDMS 0830 15:35 Order name: Flu; Complete Time: 16:55 cp 05/05 16:04 Order name: CBC Smear Scan; Complete Time: 16:55 EDMS 05/05 16:25 Order name: Basic Metabolic Panel EDMD 05/05 16:25 Order name: Basic Metabolic Panel EDMD 05/05 16:25 Order name: CBC with Automated Diff EDMS 05/05 16:25 Order name: CBC with Automated Diff EDMD 05/05 16:25 Order name: NT PRO-BNP EDMD 05/05 16:25 Order name: NT PRO-BNP EDMD 05/05 16:25 Order name: Troponin I EDMD 05/05 15:17 Order name: Chest Single View XRAY; Complete Time: 16:55 hb 05/05 15:17 Order name: Cardiac monitoring; Complete Time: 16:54 hb 05/05 15:17 Order name: EKG - Nurse/Tech; Complete Time: 16:54 hb 05/05 15:17 Order name: IV Saline Lock - Large Bore; Complete Time: 16:54 hb 05/05 15:17 Order name: Labs collected and sent; Complete Time: 16:54 hb 05/05 15:17 Order name: O2 Per Protocol; Complete Time: 16:54 hb 05/05 15:17 Order name: O2 Sat Monitoring; Complete Time: 16:54 hb 05/05 15:35 Order name: Document PUI#; Complete Time: 18:08 cp 05/05 15:35 Order name: Droplet/Contact Precautions; Complete Time: 16:04 cp 05/05 15:35 Order name: Notify Health Dept [phone]/ ; Complete Time: 18:08 cp 05/05 16:25 Order name: Regular EDMD 05/05 16:25 Order name: Troponin I EDMD 05/05 16:25 Order name: Troponin I EDMD 05/05 16:26 Order name: Sputum Culture EDMD 05/05 16:26 Order name: Sputum Gram Stain EDMD 05/05 17:17 Order name: SARS-COV-2 RT PCR EDMD Administered Medications: 15:37 Drug: NS 0.9% (30 ml/kg) 30 ml/kg Route: IV; Rate: bolus; Site: left forearm; ll1 16:40 Follow up: Response: No adverse reaction; IV Status: Completed infusion; IV Intake: hb 1700ml 15:40 Drug: Tylenol 650 mg Route: PO; hb 17:45 Follow up: Response: No adverse reaction; Temperature is decreased hb 16:25 Drug: LevaQUIN 500 mg Volume: 100 ml; Route: IVPB; Infused Over: 60 mins; Site: left ll1 forearm; 17:30 Follow up: Response: No adverse reaction; IV Status: Completed infusion; IV Intake: hb 100ml 16:25 Drug: Decadron - Dexamethasone 6 mg Route: IVP; Site: left forearm; ll1 16:53 Follow up: Response: No adverse reaction hb Disposition: 05/05/20 16:28 Hospitalization ordered by Jerome Abreu for Inpatient Admission. Preliminary diagnosis are Respiratory failure, unspecified with hypoxia, Chronic obstructive pulmonary disease with acute lower respiratory infection, Other sepsis. - Bed requested for Telemetry/MedSurg (Inpatient). - Status is Inpatient Admission. jb4 - Condition is Stable. - Problem is new. - Symptoms have improved. Critical care time excluding procedures: 17:30 Critical care time: Bedside Care: 5 minutes, Consultation: 20 minutes, Family cp Intervention: 5 minutes. Total time: 30 minutes Addendum: 05/12/2020 09:53 Co-signature as Attending Physician, Rashmi Coates MD. m a2 Signatures: Dispatcher [employer] EDMS Hector Gomez PA PA cp Nelly Jackson RN RN hb Bryson, James, RN RN jb4 Rashmi Coates MD MD ma2 Araceli Cano Lynsay, RN RN ll1 Corrections: (The following items were deleted from the chart) 05/05 16:04 16:00 Manual Differential ordered. EDMD EDMS 16:20 15:36 CORONAVIRUS+MR.LAB.BRZ ordered. EDMS EDMS 16:27 16:27 Normal except: WBC 18.0; PLT 448; MPV 7.2; ERVIN% 90.7; LYM% 3.4; NEUT A 16.3. cp cp 18:41 16:28 Hospitalization Ordered by Jerome Abreu MD for Inpatient Admission. eb Preliminary diagnosis is Respiratory failure, unspecified with hypoxia; Chronic obstructive pulmonary disease with acute lower respiratory infection; Other sepsis. Bed requested for Telemetry/MedSurg (Inpatient). Status is Inpatient Admission. Condition is Stable. Problem is new. Symptoms have improved. cp 19:46 18:41 05/05/2020 16:28 Hospitalization Ordered by Jerome Abreu MD for Inpatient jb4 Admission. Preliminary diagnosis is Respiratory failure, unspecified with hypoxia; Chronic obstructive pulmonary disease with acute lower respiratory infection; Other sepsis. Bed requested for Telemetry/MedSurg (Inpatient). Status is Inpatient Admission. Condition is Stable. Problem is new. Symptoms have improved. eb 05/06 12:17 12:17 Constitutional: The patient appears alert, awake, non-diaphoretic, well cp developed, well nourished, in obvious distress, mildly distressed, obviously ill, cp
--- NOTE | 2020-05-05 16:29 | ER ---
Nurse's Notes [facility] Name: Shilpa Richardson Age: 74 yrs Sex: Female : 1945 Arrival Date: 05/05/2020 Time: 15:08 Bed 7 Private MD: Diagnosis: Respiratory failure, unspecified with hypoxia;Chronic obstructive pulmonary disease with acute lower respiratory infection;Other sepsis Presentation: 05/05 15:08 Chief complaint: EMS states: SOB since this morning. SpO2 80% on RA, improved to 90% on hb 2LNC. Coronavirus screen: cough unrelated to allergies, difficulty breathing, fever, Client presents with at least one sign or symptom that may indicate coronavirus-19. Standard/surgical mask placed on the client. Provider contacted for isolation considerations. Ebola Screen: No symptoms or risks identified at this time. Initial Sepsis Screen: Does the patient meet any 2 criteria? Temp <36.0*C (96.8*F)) or > 38.3*C (100.9*F). No. Patient's initial sepsis screen is negative. Does the patient have a suspected source of infection? No. Patient's initial sepsis screen is negative. Risk Assessment: Do you want to hurt yourself or someone else? Patient reports no desire to harm self or others. Onset of symptoms was May 05, 2020. 15:08 Method Of Arrival: EMS: [facility] 15:08 Acuity: PATRICIA 2 hb Triage Assessment: 15:19 General: Appears distressed, Behavior is cooperative, anxious. Pain: Denies pain. EENT: hb No signs and/or symptoms were reported regarding the EENT system. Neuro: Level of Consciousness is awake, alert, obeys commands, Oriented to person, place, time, situation. Cardiovascular: Patient's skin is warm and dry. Rhythm is sinus tachycardia. GI: No signs and/or symptoms were reported involving the gastrointestinal system. : No signs and/or symptoms were reported regarding the genitourinary system. Derm: Skin is dry, Skin is pale, Skin temperature is warm. Musculoskeletal: No signs and/or symptoms reported regarding the musculoskeletal system. 15:20 Respiratory: Reports shortness of breath at rest cough that is productive, Airway is hb patent Respiratory effort is labored, Respiratory pattern is tachypnea Breath sounds are coarse bilaterally. Onset: The symptoms/episode began/occurred today, the patient has moderate shortness of breath. Historical: - Allergies: 15:12 adhesive tape; hb 15:12 Codeine; hb 15:12 Diphenhydramine; hb 15:12 Erythromycin; hb 15:12 PENICILLINS; hb 15:12 Tape; hb - Home Meds: 15:12 alprazolam 1 mg Oral tab BID [Active]; amlodipine 2.5 mg tab 1 tab once daily [Active]; hb atenolol 25 mg Oral tab once daily [Active]; baclofen 10 mg Oral tab BID [Active]; clonidine HCl 0.1 mg Oral tab [Active]; Combivent Inhl [Active]; hydrocodone-acetaminophen 7.5-325 mg/15 mL Oral soln take one tablespoon TID [Active]; Lyrica 100mg Oral 2 times per day [Active]; meloxicam 15 mg Oral tab 1 tab once daily [Active]; Restasis ophthalmic 1 drop 2 times per day [Active]; Silenor 6 mg Oral tab 1 tab once daily [Active]; simvastatin 20 mg Oral tab once daily [Active]; Stiolto Respimat 2.5-2.5 mcg/actuation inhalation mist 2 puffs once daily [Active]; - PMHx: 15:12 Alcoholism; Anxiety; ADD/ADHD; Carotid blockage; Chronic pain; COPD; Depression; hb Hypertension; - Immunization history:: Adult Immunizations up to date. - Social history:: Smoking status: Patient denies any tobacco usage or history of. Screenin:12 Abuse screen: Denies threats or abuse. Denies injuries from another. Nutritional hb screening: No deficits noted. Tuberculosis screening: No symptoms or risk factors identified. Fall Risk Total Solorzano Fall Scale indicates Low Risk Score (25-44 pts). Fall prevention measures have been instituted. Side Rails Up X 2 Frequent Obs/Assesments occuring As available Patient and Family Educated on Fall Prevention Program and strategies. Assessment: 15:22 General: see triage assessment. hb 16:15 Reassessment: No changes from previously documented assessment. Patient and/or family hb updated on plan of care and expected duration. Pain level reassessed. 17:00 Reassessment: No changes from previously documented assessment. Patient and/or family hb updated on plan of care and expected duration. Pain level reassessed. Admission ordered, awaiting room assignment at this time. 18:00 Reassessment: Patient appears in no apparent distress at this time. Patient and/or hb family updated on plan of care and expected duration. Pain level reassessed. Admission ordered, awaiting room assignment at this time. 18:41 Reassessment: Patient appears in no apparent distress at this time. No changes from hb previously documented assessment. Patient and/or family updated on plan of care and expected duration. Pain level reassessed. 19:05 Reassessment: Patient and/or family updated on plan of care and expected duration. Pain jb4 level reassessed. Pt is resting comfortably in bed with no s/s of pain or distress noted, respirations are even and unlabored. 19:34 Reassessment: No changes from previously documented assessment. Patient and/or family jb4 updated on plan of care and expected duration. Pain level reassessed. Report called to ANJMU Mauricio. Vital Signs: 15:08 BP 185 / 87; Pulse 88; Resp 19; Temp 102.7(O); Pulse Ox 82% on R/A; Weight 52.16 kg; hb Height 5 ft. 1 in. (154.94 cm); Pain 0/10; 15:30 BP 157 / 97; Pulse 105; Resp 22; Pulse Ox 94% on 3 lpm NC; hb 16:28 BP 166 / 74; Pulse 100; Resp 21; Pulse Ox 96% on 3 lpm NC; hb 16:45 BP 159 / 77; Pulse 98; Resp 21; Pulse Ox 93% on 3 lpm NC; hb 17:39 BP 161 / 85; Pulse 95; Resp 22; Temp 99(O); Pulse Ox 94% 3 lpm ; hb 18:00 BP 172 / 99; Pulse 89; Resp 14; Pulse Ox 98% on 3 lpm NC; hb 18:41 BP 179 / 76; Pulse 86; Resp 21; Pulse Ox 97% on 3 lpm NC; hb 19:15 BP 165 / 86; Pulse 82; Resp 11; Temp 97.7; Pulse Ox 99% on 3 lpm NC; jb4 15:08 Body Mass Index 21.73 (52.16 kg, 154.94 cm) hb ED Course: 15:08 Patient arrived in ED. hb 15:11 Triage completed. hb 15:12 Arm band placed on. hb 15:12 Patient has correct armband on for positive identification. Bed in low position. Call hb light in reach. Side rails up X2. toy assembler wood on. Pulse ox on. NIBP on. 15:13 Nelly Jackson, RN is Primary Nurse. hb 15:18 Hector Gomez PA is PHCP. cp 15:18 Rashmi Coates MD is Attending Physician. cp 15:50 Chest Single View XRAY In Process Unspecified. EDMS 16:27 Jerome Abreu MD is Hospitalizing Provider. cp 19:41 No provider procedures requiring assistance completed. Patient admitted, IV remains in jb4 place. Administered Medications: 15:37 Drug: NS 0.9% (30 ml/kg) 30 ml/kg Route: IV; Rate: bolus; Site: left forearm; ll1 16:40 Follow up: Response: No adverse reaction; IV Status: Completed infusion; IV Intake: hb 1700ml 15:40 Drug: Tylenol 650 mg Route: PO; hb 17:45 Follow up: Response: No adverse reaction; Temperature is decreased hb 16:25 Drug: LevaQUIN 500 mg Volume: 100 ml; Route: IVPB; Infused Over: 60 mins; Site: left ll1 forearm; 17:30 Follow up: Response: No adverse reaction; IV Status: Completed infusion; IV Intake: hb 100ml 16:25 Drug: Decadron - Dexamethasone 6 mg Route: IVP; Site: left forearm; ll1 16:53 Follow up: Response: No adverse reaction hb Intake: 16:40 IV: 1700ml; Total: 1700ml. hb 17:30 IV: 100ml; Total: 1800ml. hb Outcome: 16:28 Decision to Hospitalize by Provider. cp 19:41 Admitted to Med/surg accompanied by tech, via wheelchair, room 232, with oxygen, with jb4 chart, Report called to ANJUM Mauricio 19:41 Condition: stable 19:41 Discharge instructions given to patient, Instructed on the need for admit, Demonstrated understanding of instructions. 19:46 Patient left the ED. jb4 Signatures: Dispatcher [employer] EDNM Hector Gomez PA PA cp Nelly Jackson RN RN Francisco Rosen RN RN jb4 Godwin Calderon RN RN ll1 Corrections: (The following items were deleted from the chart) 16:56 15:19 Respiratory: Reports hb hb 19:35 19:05 Reassessment: No changes from previously documented assessment. Patient and/or jb4 family updated on plan of care and expected duration. Pain level reassessed. Pt is resting comfortably in bed with no s/s of pain or distress noted, respirations are even and unlabored. jb4
[2020-05-05 16:32] LABS: Blood Morphology Comment NOT SEEN (NOT SEEN); Platelet Estimate INCR; White Blood Cell Scan OK
[2020-05-05 16:48] LABS: Protime INR 1.06
--- NOTE | 2020-05-05 16:54 | RAD REPORT ---
EXAM DESCRIPTION: Evin Single View05/05/2020 3:51 pm CLINICAL HISTORY: Shortness breath COMPARISON: April 07, 2020 FINDINGS: Lungs are hyperaerated. The lungs appear clear of acute infiltrate. The heart is normal size IMPRESSION: No acute abnormalities displayed
[2020-05-05] MEDS: IPRATROPIUM BROM 0.5MG/2.5ML NEB SCH (20:00)
[2020-05-05] MEDS: METHYLPREDNISOLONE 40 MG INJ IV SCH (20:31)
[2020-05-05] MEDS ORDERED: HYDRALAZINE HCL 20 MG/ML VIAL IV PRN (21:05)
[2020-05-05 23:11] VITALS: BMI 20.1
[2020-05-06] MEDS: METHYLPREDNISOLONE 40 MG INJ IV SCH ×3 (00:53→16:57)
[2020-05-06] MEDS: IPRATROPIUM BROM 0.5MG/2.5ML NEB SCH ×3 (01:45→13:54)
[2020-05-06 06:03] LABS: Absolute Lymphocytes (CBC) 0.7 K/uL (0.7-4.9); Basophils % 0.2 % (0-1.3); Hematocrit 33.8 % (36.0-45.0); Lymphocytes % 4.9 % (15.3-44.8); MPV 7.1 fL (7.6-11.3); RBC Red Blood Cell Count 3.66 M/uL (3.86-4.86)
[2020-05-06 06:17] LABS: Potassium 4.2 mmol/L (3.5-5.1)
[2020-05-06] MEDS ORDERED: clonazePAM 0.5 MG TAB PO PRN (08:56)
[2020-05-06] MEDS ORDERED: AMITRIPTYLINE 50 MG TAB PO PRN (08:56)
[2020-05-06] MEDS ORDERED: HOME MED 1 EA UNK (Cyclosporine [Restasis] 1 DROP) EACH EYE SCH (09:00)
[2020-05-06] MEDS ORDERED: PNEUMOCOCCAL VACCINE 0.5 ML IMVAC ONE (09:00)
[2020-05-06] MEDS ORDERED: DULOXETINE 30 MG CAP PO SCH (09:00)
[2020-05-06] MEDS ORDERED: THIAMINE HCL 100 MG TABLET PO SCH (09:00)
[2020-05-06] MEDS ORDERED: METOPROLOL TAR 25 MG TAB PO SCH ×3 (09:00→21:00)
[2020-05-06] MEDS ORDERED: HOME MED 1 EA UNK (Fluticasone/Umeclidin/Vilanter [Trelegy Ellipta 100-62.5-25] 1 PUFF) IH SCH (09:00)
[2020-05-06] MEDS ORDERED: SIMVASTATIN PO SCH (09:00)
[2020-05-06] MEDS ORDERED: BIMATOPROST OPHTH DROPS/2.5 ML BTL OPTH SCH (09:00)
[2020-05-06] MEDS ORDERED: ASPIRIN EC 81 MG TAB PO SCH (09:00)
[2020-05-06] MEDS ORDERED: HOME MED 1 EA UNK (Omeprazole [Prilosec] 20 MG) PO SCH (09:00)
[2020-05-06 09:08] VITALS: O2SAT 97
--- NOTE | 2020-05-06 09:20 | P.DS ---
Admission Date: 05/05/20 Discharge Date: 05/06/20 Primary Care Provider: Dr. Almodovar; Pulmonary-Dr. Abreu Disposition: DC HOME/HOME HEALTH CARE Discharge Condition: GOOD Reason for Admission: COPD exacerbation Consultations: Pulmonary-Dr. Abreu Procedures: CXR: FINDINGS: Lungs are hyperaerated. The lungs appear clear of acute infiltrate. The heart is normal size IMPRESSION: No acute abnormalities displayed Medical problem list: Dyspnea secondary to COPD exacerbation with hypoxia Hypertension Depression with anxiety Chronic pain Hyperlipidemia Brief History of Present Illness: 74-year-old female with history of COPD presented to the emergency room with increased shortness of breath. Patient found to have COPD exacerbation with hypoxia. Patient admitted for further evaluation and treatment. Hospital Course: Patient presented with dyspnea secondary to COPD exacerbation with hypoxia. Patient was seen and evaluated by pulmonology. Patient has done well. Patient now requires home oxygen to maintain sats above 93%. Patient previously on Trelegy inhaler for COPD. This was apparently causing dry mouth and shortness of breath. Pulmonology recommends to discontinue this inhaler. At discharge patient will continue with Symbicort inhaler 2 puffs twice daily for COPD. Patient will continue with Combivent inhaler and nebulizer at home for shortness of breath. At discharge patient will continue with prednisone 20 mg 1 pill twice daily for 5 days then 1 pill once daily for 5 days. Pulmonology also recommends Levaquin 500 mg once daily for 7 days due to her history of COPD exacerbations. Patient will also go home with home oxygen to maintain sats above 93%. Recommend follow up with pulmonology in 1-2 weeks to follow up this hospitalization. Patient with hypertension. At discharge this has remained stable. She may continue with Norvasc 5 mg daily and Lopressor 25 mg 1 pill twice daily. Recommend to maintain blood pressure less 150/80. Further adjustment can be done by her PCP. Patient with depression with anxiety. At discharge she may continue with her medications of Cymbalta 30 mg twice daily and Elavil 50 mg at bedtime. Patient with chronic pain. At discharge she may continue with her current med ications. Patient with GERD. At discharge she will continue with Prilosec 20 mg daily. Patient with hyperlipidemia. At discharge she will continue with Zocor 20 mg daily. Vital Signs/Physical Exam: Temp Pulse Resp BP Pulse Ox 97.2 F 80 16 109/50 L 98 05/06/20 04:00 05/06/20 04:00 05/06/20 04:00 05/06/20 04:00 05/06/20 04:00 General: Alert, In no apparent distress, Oriented x3, Cooperative HEENT: Atraumatic Neck: Supple Respiratory: Clear to auscultation bilaterally, Other (On nasal cannula at 3 L) Cardiovascular: Normal pulses, Regular rate/rhythm Gastrointestinal: Normal bowel sounds, Soft and benign, Non-distended Integumentary: No tenderness/swelling, No erythema, No warmth, No cyanosis Neurological: Normal speech, Normal strength at 5/5 x4 extr, Normal tone, Normal affect Laboratory Data at Discharge: WBC 13.8 K/uL (4.3-10.9) H D 05/06/20 05:36 Hgb 11.4 g/dL (12.0-15.0) L 05/06/20 05:36 Hct 33.8 % (36.0-45.0) L 05/06/20 05:36 Plt Count 419 K/uL (152-406) H 05/06/20 05:36 PT 12.5 SECONDS (9.5-12.5) 05/05/20 16:20 INR 1.06 05/05/20 16:20 APTT 33.8 SECONDS (24.3-36.9) 05/05/20 16:20 Sodium 134 mmol/L (136-145) L 05/06/20 05:36 Potassium 4.2 mmol/L (3.5-5.1) 05/06/20 05:36 BUN 18 mg/dL (7-18) 05/06/20 05:36 Creatinine 0.86 mg/dL (0.55-1.3) 05/06/20 05:36 Glucose 131 mg/dL (74-106) H 05/06/20 05:36 Total Bilirubin 0.9 mg/dL (0.2-1.0) 05/05/20 15:25 AST 18 U/L (15-37) 05/05/20 15:25 ALT 24 U/L (12-78) 05/05/20 15:25 Alkaline Phosphatase 160 U/L (45-117) H 05/05/20 15:25 Troponin I < 0.02 ng/mL (0.0-0.045) 05/05/20 23:58 Amylase 51 U/L (25-115) 05/05/20 15:25 Lipase 46 U/L (73-393) L 05/05/20 15:25 Home Medications: Ipratropium/Albuterol Sulfate [Combivent Respimat 20-100 Mcg] 1 puff IH QID PRN 12/08/18 Simvastatin 20 tab PO DAILY 12/08/18 Omeprazole [Prilosec] 20 mg PO DAILY 12/10/18 Amitriptyline HCl 50 mg PO BEDTIME 07/22/19 Bimatoprost [Lumigan Opthalmic Drops*] 1 drop EACH EYE DAILY 07/22/19 Cyclosporine [Restasis] 1 drop EACH EYE BID 07/22/19 Duloxetine HCl [Cymbalta] 30 mg PO BID 07/22/19 clonazePAM [Clonazepam] 0.5 mg PO TID 07/22/19 Amlodipine Besylate [Norvasc] 1 tab PO DAILY 05/05/20 Budesonide/Formoterol Fumarate [Symbicort 160-4.5 Mcg Inhaler] 2 puff IH BID #1 hfa.aer.ad 05/06/20 Levofloxacin [Levaquin] 500 mg PO DAILY #7 tablet 05/06/20 Metoprolol Tartrate [Lopressor*] 1 tab PO BID 05/06/20 predniSONE [Prednisone*] 20 mg PO SEECOM #15 tab 05/06/20 New Medications: Levofloxacin [Levaquin] 500 mg PO DAILY #7 tablet predniSONE [Prednisone*] 20 mg PO SEECOM #15 tab Budesonide/Formoterol Fumarate [Symbicort 160-4.5 Mcg Inhaler] 2 puff IH BID #1 hfa.aer.ad Patient Discharge Instructions: 1. Follow up with PCP in one week to follow up hospitalization. 2. Patient presented with dyspnea secondary to COPD exacerbation with hypoxia. Patient was seen and evaluated by pulmonology. Patient has done well. Patient now requires home oxygen to maintain sats above 93%. Patient previously on Trelegy inhaler for COPD. This was apparently causing dry mouth and shortness of breath. Pulmonology recommends to discontinue this inhaler. At discharge patient will continue with Symbicort inhaler 2 puffs twice daily for COPD. Patient will continue with Combivent inhaler and nebulizer at home for shortness of breath. At discharge patient will continue with prednisone 20 mg 1 pill twice daily for 5 days then 1 pill once daily for 5 days. Pulmonology also recommends Levaquin 500 mg once daily for 7 days due to her history of COPD exacerbations. Patient will also go home with home oxygen to maintain sats above 93%. Recommend follow up with pulmonology in 1-2 weeks to follow up this hospitalization. Patient with hypertension. At discharge this has remained stable. She may continue with Norvasc 5 mg daily and Lopressor 25 mg 1 pill twice daily. Recommend to maintain blood pressure less 150/80. Further adjustment can be done by her PCP. 3. Patient with depression with anxiety. At discharge she may continue with her medications of Cymbalta 30 mg twice daily and Elavil 50 mg at bedtime. 4. Patient with chronic pain. At discharge she may continue with her current medications. 5. Patient with GERD. At discharge she will continue with Prilosec 20 mg daily. 6. Patient with hyperlipidemia. At discharge she will continue with Zocor 20 mg daily. Diet: AHA Activity: Fall precautions Time spent managing pt's care (in minutes): 55
[2020-05-06 17:50] VITALS: BP 159/70; TEMP 98.2
[2020-05-06] MEDS ORDERED: ATORVASTATIN 10 MG TAB PO SCH (21:00)
[2020-05-07] MEDS ORDERED: AMLODIPINE 5 MG TAB PO SCH (09:00)
[2020-05-07] MEDS ORDERED: LUMIGAN OPTH OPTH SCH (09:00)
[2020-05-07] MEDS ORDERED: PANTOPRAZOLE 40MG TABLET PO SCH (09:00)
[2020-05-07] MEDS ORDERED: levoFLOXacin 500 MG TAB PO SCH (15:00)
== END 2020-05-06 19:40 | disposition home health service (06) ==
LOC: ER 15:03 → ERHOLD 17:35 → INTOOBSV 17:35 → 2ND 19:12
PROVIDERS: ADMIT Internal Medicine Sleep Medicine; ATTEND Family Medicine
DX: J44.1 Chronic obstructive pulmonary disease with (acute) exacerbation (principal); R09.02 Hypoxemia; R06.00 Dyspnea, unspecified; R50.9 Fever, unspecified; R06.02 Shortness of breath; Z20.828 Contact with and (suspected) exposure to other viral communicable diseases; I10 Essential (primary) hypertension; F41.8 Other specified anxiety disorders; G89.29 Other chronic pain; E78.5 Hyperlipidemia, unspecified; K21.9 Gastro-esophageal reflux disease without esophagitis; M81.0 Age-related osteoporosis without current pathological fracture; Z79.1 Long term (current) use of non-steroidal anti-inflammatories (NSAID); Z79.899 Other long term (current) drug therapy
CPT/HCPCS: 96365; 87040 ×2; 85025 ×2; 80048 ×2; 36415; 82150; 82550; 85610; 80076; 83605; 85730; 84484 ×3; 82553; 83690; 84145; 83880; 87804 ×2; 71045; 94760; 96375; 99285; U0003; J0360; J1100; J7030; J2920 ×4; G0378 ×3

== ENCOUNTER 2020-10-16 15:19 | Emergency (ER) | payer OTHER ==
[2020-10-16 15:56] LABS: Absolute Lymphocytes (CBC) 2.2 K/uL (0.7-4.9); Hematocrit 33.9 % (36.0-45.0); Lymphocytes % 23.8 % (15.3-44.8); MPV 6.8 fL (7.6-11.3); RBC Red Blood Cell Count 3.71 M/uL (3.86-4.86)
[2020-10-16 15:57] LABS: Protime INR 0.91
[2020-10-16 16:12] LABS: ALT/SGPT 13 U/L (12-78); AST/SGOT 21 U/L (15-37); Albumin 3.5 g/dL (3.4-5.0); Alkaline Phosphatase 173 U/L (45-117); BUN Blood Urea Nitrogen 10 mg/dL (7-18); Bicarbonate 26 mmol/L (21-32); Bilirubin Direct 0.1 mg/dL (0-0.2); Bilirubin Total 0.6 mg/dL (0.2-1.0); Glucose Level 92 mg/dL (74-106); Magnesium 1.9 mg/dL (1.8-2.4); NT PRO-BNP 647 pg/mL (<125); Potassium 4.7 mmol/L (3.5-5.1); Protein, Total 7.1 g/dL (6.4-8.2); Sodium Level 137 mmol/L (136-145); Troponin (Emerg Dept Use Only) < 0.02 ng/mL (0.0-0.045)
[2020-10-16 16:25] LABS: Urine Blood NEGATIVE (NEG); Urine Glucose NEGATIVE (NEG); Urine Protein NEGATIVE (NEG); Urine Specific Gravity 1.015 (1.005-1.030)
--- NOTE | 2020-10-16 16:33 | RAD REPORT ---
EXAM DESCRIPTION: Evin Single View10/16/2020 3:54 pm CLINICAL HISTORY: Hypotension COMPARISON: 2019 FINDINGS: Lungs are hyperaerated. Calcified granuloma right lung. The lungs appear clear of acute in filtrate. The heart is normal size IMPRESSION: No acute abnormalities displayed
[2020-10-16 16:45] LABS: Urine Bacteria NONE SEEN /HPF (<20); Urine RBC NONE SEEN /HPF (NONE SEEN)
[2020-10-16] MEDS ORDERED: MECLIZINE HCL 12.5 MG TAB ONE (17:19)
[2020-10-16] MEDS ORDERED: ONDANSETRON 4 MG/2 ML VIAL ONE (17:19)
--- NOTE | 2020-10-16 18:18 | RAD REPORT ---
EXAM DESCRIPTION: CT - Head Brain Wo Cont - 10/16/2020 6:07 pm CLINICAL HISTORY: Syncope COMPARISON: 2019 TECHNIQUE: Computed axial tomography of the head was obtained. IV contrast was not requested. All CT scans are performed using dose optimization technique as appropriate and may include automated exposure control or mA/KV adjustment according to patient size. FINDINGS: An intracranial bleed is not seen . The ventricles are normal in caliber. No extra-axial fluid collection is noted. Old right frontal lobe infarct Mild to moderate low-density areas within periventricular, deep and subcortical white matter likely r epresent ischemic changes secondary to small vessel disease. Fluid within the sinuses/ mastoids is not seen. IMPRESSION: No acute intracranial abnormality is seen. If patient's symptoms persist MRI of the bra in would be recommended.
--- NOTE | 2020-10-16 18:26 | RAD REPORT ---
EXAM DESCRIPTION: Zoraida Angio10/16/2020 6:07 pm CLINICAL HISTORY: Syncope COMPARISON: None TECHNIQUE: 50 cc Isovue 370 was administered intravenously. 3D MIP reconstruction performed All CT scans are performed using dose optimization technique as appropriate and may include automated exposure control or mA/KV adjustment according to patient size. FINDINGS: Occlusion of the left internal carotid artery at its origin. Severe stenosis proximal left external carotid artery Mild to moderate plaque within the right common carotid artery. Minimal plaque within the left common carotid artery. Mild plaque within the right internal carotid artery 23 millimeter right thyroid nodule IMPRESSION: Occlusion of the entire visualized left internal carotid artery likely chronic Severe stenosis proximal left external carotid artery NASCET criteria used. Mild 0-49% stenosis Moderate 50-69% stenosis Severe 70-99% stenosis
--- NOTE | 2020-10-16 18:32 | RAD REPORT ---
EXAM DESCRIPTION: CTHead angio10/16/2020 6:07 pm CLINICAL HISTORY: Syncope COMPARISON: None TECHNIQUE: CT angiogram of the head was obtained. 3D MIPS reconstruction performed. All CT scans are performed using dose optimization technique as appropriate and may include automated exposure control or mA/KV adjustment according to patient size. FINDINGS: Almost all of the left internal carotid artery is occluded. There is a small amount of baltazar w within the very distal left internal carotid artery. A patent anterior communicating artery is present. Anterior cerebral, middle cerebral and posterior cerebral arteries bilaterally appear unremarkable No abnormality of the basilar artery. No aneurysm seen IMPRESSION: Chronic occlusion of the left internal carotid artery. The left anterior cerebral and le ft middle cerebral arteries are likely supplied by the patent anterior communicating artery
--- NOTE | 2020-10-16 18:57 | ER ---
Nurse's Notes [facility] Name: Shilpa Richardson Age: 75 yrs Sex: Female : 1945 Arrival Date: 10/16/2020 Time: 15:24 Bed 8 Private MD: Diagnosis: Dizziness and giddiness;Chronic atrial fibrillation Presentation: 10/16 15:24 Chief complaint: Patient states: "I woke up dizzy and I felt like passing out, like my aa5 sugar was low but it was my blood pressure that was low". EMS reports BP of 78 systolic and increased to 100 systolic after 200 cc NS bolus, IV infiltrated upon arrival to ER and was dc'd, catheter intact, pressure dressing applied to L FA. EMS reports FSBG 85. 15:24 Coronavirus screen: Client denies travel out of the [place] in the last 14 days. At this aa5 time, the client does not indicate any symptoms associated with coronavirus-19. The client reports previous COVID testing was negative. Ebola Screen: Patient negative for fever greater than or equal to 101.5 degrees Fahrenheit, and additional compatible Ebola Virus Disease symptoms. Initial Sepsis Screen: Does the patient meet any 2 criteria? No. Patient's initial sepsis screen is negative. Does the patient have a suspected source of infection? No. Patient's initial sepsis screen is negative. Risk Assessment: Do you want to hurt yourself or someone else? Patient reports no desire to harm self or others. Onset of symptoms was October 16, 2020. 15:24 Acuity: PATRICIA 3 aa5 15:24 Method Of Arrival: EMS: [facility] aa5 Historical: - Allergies: 15:25 adhesive tape; aa5 15:25 Codeine; aa5 15:25 Diphenhydramine; aa5 15:25 Erythromycin; aa5 15:25 Tape; aa5 15:25 PENICILLINS; aa5 - Home Meds: 16:01 metoprolol tartrate 25 mg Oral tab 1 tab 2 times per day [Active]; clonazepam 0.5 mg aa5 Oral tab at bedtime PRN [Active]; duloxetine 20 mg oral cpDR 2 times per day [Active]; duloxetine 20 mg oral cpDR 1 cap 2 times per day [Active]; omeprazole 20 mg Oral cpDR 1 cap once daily [Active]; omeprazole 20 mg Oral cpDR 1 cap once daily [Active]; amitriptyline 50 mg Oral tab once daily [Active]; Combivent Inhl one puff as needed 4 times a day [Active]; simvastatin 20 mg Oral tab 1 tab once daily [Active]; Restasis 0.05 % ophthalmic dpet once a day [Active]; Lumigan 0.01 % ophthalmic drop twice a day [Active]; - PMHx: 15:25 ADD/ADHD; Alcoholism; Anxiety; Carotid blockage; Chronic pain; COPD; Depression; aa5 Hypertension; - Immunization history:: Adult Immunizations unknown. Screenin:00 Abuse screen: Denies threats or abuse. Nutritional screening: No deficits noted. aa5 Tuberculosis screening: No symptoms or risk factors identified. Fall Risk IV access (20 points). Total Solorzano Fall Scale indicates No Risk (0-24 pts). Assessment: 15:28 General: Appears comfortable, Behavior is calm, cooperative. Pain: Complains of pain in aa5 back Pain currently is 8 out of 10 on a pain scale. Pain began is chronic Is continuous. Neuro: Level of Consciousness is awake, alert, obeys commands, Oriented to person, place, time, situation. Cardiovascular: Heart tones S1 S2 present Patient's skin is warm and dry. Rhythm is irregular. Respiratory: Airway is patent Respiratory effort is even, unlabored, Respiratory pattern is regular, symmetrical, Denies cough. GI: Abdomen is flat, non-distended, Bowel sounds present X 4 quads. Abd is soft and non tender X 4 quads. Patient currently denies diarrhea, nausea, vomiting. : No signs and/or symptoms were reported regarding the genitourinary system. EENT: No signs and/or symptoms were reported regarding the EENT system. Derm: Skin is pink, warm \\T\\ dry. Musculoskeletal: Range of motion: intact in all extremities. 16:05 Reassessment: Patient is alert, oriented x 3, equal unlabored respirations, skin aa5 warm/dry/pink. Pt assisted to bathroom via wheelchair, accompanied by technical sales engineer . 16:30 Reassessment: Pt assisted with bedpan, voided once. aa5 16:30 Reassessment: Patient is alert, oriented x 3, equal unlabored respirations, skin aa5 warm/dry/pink. 17:00 Reassessment: Patient is alert, oriented x 3, equal unlabored respirations, skin aa5 warm/dry/pink. Pt assisted with bedpan, voided once. Pt denies any complaints at this time. . 18:00 Reassessment: Patient is alert, oriented x 3, equal unlabored respirations, skin aa5 warm/dry/pink. 19:10 Reassessment: Pt calling for ride home, pt will be d/c'd by service technician copier nurse. . aa5 19:35 Reassessment: Patient is alert, oriented x 3, equal unlabored respirations, skin ea warm/dry/pink. Discharge instruction given to patient verbalized the understanding of instruction. pt left ED via wheelchair [facility]. Pt tolerated well. Vital Signs: 15:24 BP 124 / 94; Pulse 68; Resp 15 S; Temp 98.2(TE); Pulse Ox 97% on R/A; Weight 40.82 kg jd3 (R); Height 4 ft. 10 in. (147.32 cm) (R); Pain 5/10; 16:45 BP 144 / 82 Supine; Pulse 80; aa5 16:47 BP 126 / 86 Sitting; Pulse 84; aa5 16:49 BP 114 / 74 Standing; Pulse 96; aa5 19:30 BP 112 / 70; Pulse 90; Resp 18; Temp 98; Pulse Ox 98% ; ea 15:24 Body Mass Index 18.81 (40.82 kg, 147.32 cm) jd3 16:49 Pt denied dizziness during orthostatics but complained of dizziness after she was aa5 placed back in bed. PA was notified of findings. ED Course: 15:24 Patient arrived in ED. jd3 15:24 Hector Gomez PA is PHCP. cp 15:24 Shaheen Montelongo MD is Attending Physician. cp 15:28 Arm band placed on. jd3 15:28 Patient has correct armband on for positive identification. Bed in low position. Call aa5 light in reach. Side rails up X2. ekg monitor tech on. Pulse ox on. NIBP on. 15:28 No provider procedures requiring assistance completed. aa5 15:35 Missed attempt(s): 20 gauge in right antecubital area. Bleeding controlled, band aid aa5 applied, catheter tip intact. 15:40 Initial lab(s) drawn, by ne, sent to lab. Inserted saline lock: 22 gauge in right aa5 forearm, using aseptic technique. Blood collected. 15:44 Tabitha Pierce, RN is Primary Nurse. aa5 15:48 Triage completed. aa5 15:53 XRAY Chest (1 view) In Process Unspecified. EDMS 16:21 Urine Microscopic Only Sent. em1 17:40 Inserted saline lock: 22 gauge in left forearm, using aseptic technique. ,using aseptic aa5 technique. by Erik Patiño RN (diffusics IV). 18:07 CT Head Brain wo Cont In Process Unspecified. EDMS 18:07 CT Head Angio In Process Unspecified. EDMS 18:07 CT Neck Angio In Process Unspecified. EDMS 19:18 Primary Nurse role handed off by Tabitha Pierce, RN tt3 19:30 IV discontinued, intact, bleeding controlled, No redness/swelling at site. Pressure ea dressing applied. Administered Medications: 17:00 Drug: Meclizine 12.5 mg Route: PO; aa5 19:00 Follow up: Response: No adverse reaction ea 17:00 Drug: Zofran (Ondansetron) 4 mg Route: IVP; Site: right forearm; aa5 19:00 Follow up: Response: No adverse reaction ea Outcome: 18:57 Discharge ordered by MD. cp 19:35 Discharged to home via wheelchair, with friend. ea 19:35 Condition: stable 19:35 Discharge instructions given to patient, Instructed on discharge instructions, follow up and referral plans. medication usage, Demonstrated understanding of instructions, follow-up care, medications, Prescriptions given X 2. 19:37 Patient left the ED. ea Signatures: Dispatcher [employer] EDKeon Palmer em1 Tabitha Pierce, RN RN aa5 Hector Gomez PA PA cp Antunez, Elena, RN RN ea Davies, Jonathon, RN RN Richie Florentino tt3 Corrections: (The following items were deleted from the chart) 15:49 15:24 Chief complaint: Patient states: "I woke up dizzy and I felt like passing out, aa5 like my sugar was low but it was my blood pressure that was low". EMS reports BP of 78 systolic and increased to 100 systolic after 200 cc NS bolus, IV infiltrated upon arrival to ER and was dc'd, catheter intact, pressure dressing applied to L FA. aa5
--- NOTE | 2020-10-16 18:57 | EDPHYS ---
Physician Documentation [facility] Name: Shilpa Richardson Age: 75 yrs Sex: Female : 1945 Arrival Date: 10/16/2020 Time: 15:24 Bed 8 Private MD: ED Physician Shaheen Montelongo HPI: 10/16 15:30 This 75 yrs old Female presents to ER via EMS with complaints of Dizziness. cp 15:30 The patient's problem is reported as dizziness. cp 15:30 Onset: The symptoms/episode began/occurred this morning. Duration: This was a single cp incident. Context: occurred at home, occurred while the patient was standing. Associated signs and symptoms: Pertinent negatives: abdominal pain, chest pain, confusion, diarrhea, vomiting, weakness, syncope. Patient's baseline: Neuro: alert and fully oriented, Motor: no deficits, Ambulation: walks without assistance, Speech: normal. Patient reports dizziness since this morning. EMS called and reports low blood pressure upon arrival with systolic pressure of 78. Patient given 250 mL NS. Historical: - Allergies: 15:25 adhesive tape; aa5 15:25 Codeine; aa5 15:25 Diphenhydramine; aa5 15:25 Erythromycin; aa5 15:25 Tape; aa5 15:25 PENICILLINS; aa5 - Home Meds: 16:01 metoprolol tartrate 25 mg Oral tab 1 tab 2 times per day [Active]; clonazepam 0.5 mg aa5 Oral tab at bedtime PRN [Active]; duloxetine 20 mg oral cpDR 2 times per day [Active]; duloxetine 20 mg oral cpDR 1 cap 2 times per day [Active]; omeprazole 20 mg Oral cpDR 1 cap once daily [Active]; omeprazole 20 mg Oral cpDR 1 cap once daily [Active]; amitriptyline 50 mg Oral tab once daily [Active]; Combivent Inhl one puff as needed 4 times a day [Active]; simvastatin 20 mg Oral tab 1 tab once daily [Active]; Restasis 0.05 % ophthalmic dpet once a day [Active]; Lumigan 0.01 % ophthalmic drop twice a day [Active]; - PMHx: 15:25 ADD/ADHD; Alcoholism; Anxiety; Carotid blockage; Chronic pain; COPD; Depression; aa5 Hypertension; - Immunization history:: Adult Immunizations unknown. ROS: 15:35 Constitutional: Negative for body aches, chills, fever, poor PO intake. cp 15:35 Eyes: Negative for injury, pain, redness, and discharge. cp 15:35 ENT: Negative for ear pain, sore throat. 15:35 Cardiovascular: Negative for chest pain, edema, palpitations. 15:35 Respiratory: Negative for cough, shortness of breath, wheezing. 15:35 Abdomen/GI: Negative for abdominal pain, nausea, vomiting, and diarrhea, diarrhea, constipation, black/tarry stool, rectal bleeding. 15:35 Neuro: Positive for dizziness, Negative for altered mental status, headache, numbness, syncope, weakness. 15:35 All other systems are negative. Exam: 15:40 Constitutional: The patient appears in no acute distress, alert, awake, cp non-diaphoretic, non-toxic, well developed, frail. 15:40 Head/Face: Normocephalic, atraumatic. cp 15:40 Eyes: Periorbital structures: appear normal, Pupils: equal, round, and reactive to light and accomodation, Extraocular movements: intact throughout, Conjunctiva: normal, no exudate, no injection, Sclera: no appreciated abnormality, Lids and lashes: appear normal, bilaterally. 15:40 ENT: External ear(s): are unremarkable, Nose: is normal, Mouth: Lips: moist, Oral mucosa: moist, Posterior pharynx: Airway: no evidence of obstruction, patent. 15:40 Neck: ROM/movement: is normal, is supple, without pain, no range of motions limitations, no nuchal rigidity. 15:40 Chest/axilla: Inspection: normal, Palpation: is normal, no crepitus, no tenderness. 15:40 Cardiovascular: Rate: normal, Rhythm: regular, Edema: is not appreciated, JVD: is not appreciated. 15:40 Respiratory: the patient does not display signs of respiratory distress, Respirations: normal, no use of accessory muscles, no retractions, labored breathing, is not present, Breath sounds: are clear throughout, no decreased breath sounds, no stridor, no wheezing. 15:40 Abdomen/GI: Inspection: abdomen appears normal, Bowel sounds: active, all quadrants, Palpation: abdomen is soft and non-tender, in all quadrants, rebound tenderness, is not appreciated, voluntary guarding, is not appreciated, involuntary guarding, is not appreciated. 15:40 Back: pain, is absent, ROM is normal. 15:40 Skin: cellulitis, is not appreciated, no rash present. 15:40 Neuro: Orientation: to person, place \T\ time. Mentation: is normal, Cerebellar function: is grossly normal, Motor: moves all fours, strength is normal, Sensation: is normal. 15:50 ECG was reviewed by the Attending Physician. cp 18:30 Radiologist reports: no acute findings cp Vital Signs: 15:24 BP 124 / 94; Pulse 68; Resp 15 S; Temp 98.2(TE); Pulse Ox 97% on R/A; Weight 40.82 kg jd3 (R); Height 4 ft. 10 in. (147.32 cm) (R); Pain 5/10; 16:45 BP 144 / 82 Supine; Pulse 80; aa5 16:47 BP 126 / 86 Sitting; Pulse 84; aa5 16:49 BP 114 / 74 Standing; Pulse 96; aa5 19:30 BP 112 / 70; Pulse 90; Resp 18; Temp 98; Pulse Ox 98% ; ea 15:24 Body Mass Index 18.81 (40.82 kg, 147.32 cm) jd3 16:49 Pt denied dizziness during orthostatics but complained of dizziness after she was aa5 placed back in bed. PA was notified of findings. MDM: 15:29 Patient medically screened. cp 16:00 Differential diagnosis: metabolic disorder, drug effects, volume depletion, UTI, sepsis.cp 18:54 ED course: VSS. Reviewed results of labs, EKG and radiology studies. No recorded cp systolic pressure below 100 observed while patient in ED. Symptoms improved. Will discharge to home for continued monitoring. 18:55 Data reviewed: vital signs, nurses notes, lab test result(s), EKG, radiologic studies, cp CT scan, plain films. 18:55 Counseling: I had a detailed discussion with the patient and/or guardian regarding: the cp historical points, exam findings, and any diagnostic results supporting the discharge/admit diagnosis, lab results, radiology results, to return to the emergency department if symptoms worsen or persist or if there are any questions or concerns that arise at home. Response to treatment: the patient's symptoms have markedly improved after treatment, and as a result, I will discharge patient. 10/16 15:29 Order name: Basic Metabolic Panel; Complete Time: 16:47 cp /10 16:49 Interpretation: Normal except: GFR 67; CA 8.3. cp / 15:29 Order name: CBC with Diff; Complete Time: 16:47 cp / 16:48 Interpretation: Normal except: RBC 3.71; HGB 11.2; HCT 33.9; PLT 454; MPV 6.8; MN% 13.8.cp / 15:29 Order name: LFT's; Complete Time: 16:47 cp / 16:48 Interpretation: Normal except: ALK 173; GLOB 3.6; A/G 1.0. cp / 15:29 Order name: Magnesium; Complete Time: 16:47 cp 10/16 15:29 Order name: NT PRO-BNP; Complete Time: 16:47 cp / 16:49 Interpretation: NT PRO-BNP 647; Reviewed. cp 10/16 15:29 Order name: PT-INR; Complete Time: 16:47 cp 10/16 15:29 Order name: Troponin (emerg Dept Use Only); Complete Time: 16:47 cp /10 18:42 Interpretation: TROPED < 0.02; Reviewed. cp 10/16 15:29 Order name: XRAY Chest (1 view); Complete Time: 16:47 cp 10/16 15:29 Order name: Urine Microscopic Only; Complete Time: 16:47 cp /10 16:21 Order name: Urine Dipstick--Ancillary (enter results); Complete Time: 16:47 em1 10/16 16:54 Order name: CT Head Brain wo Cont; Complete Time: 18:27 cp /10 18:27 Interpretation: Report reviewed. cp / 16:54 Order name: CT Head Angio; Complete Time: 18:39 cp /10 18:41 Interpretation: Report reviewed. cp / 16:54 Order name: CT Neck Angio; Complete Time: 18:39 cp / 15:29 Order name: EKG; Complete Time: 15:30 cp / 15:29 Order name: Cardiac monitoring; Complete Time: 15:50 cp 02/ 15:29 Order name: EKG - Nurse/Tech; Complete Time: 15:50 cp 02/ 15:29 Order name: IV Saline Lock; Complete Time: 15:50 cp 10/16 15:29 Order name: Labs collected and sent; Complete Time: 15:50 cp 10/16 15:29 Order name: O2 Per Protocol; Complete Time: 15:50 cp 10/16 15:29 Order name: O2 Sat Monitoring; Complete Time: 15:50 cp 10/16 15:29 Order name: Urine Dipstick-Ancillary (obtain specimen); Complete Time: 16:20 cp 10/16 15:50 Order name: Orthostatics; Complete Time: 17:41 cp EC:50 Rate is 71 beats/min. QRS interval is normal. QT interval is normal. T waves are cp Inverted in lead aVR. Interpreted by me. Reviewed by me. Administered Medications: 17:00 Drug: Meclizine 12.5 mg Route: PO; aa5 19:00 Follow up: Response: No adverse reaction ea 17:00 Drug: Zofran (Ondansetron) 4 mg Route: IVP; Site: right forearm; aa5 19:00 Follow up: Response: No adverse reaction ea Disposition: 10/17 16:55 Co-signature as Attending Physician, Shaheen Montelongo MD I agree with the assessment and kdr plan of care. Disposition: 10/16/20 18:57 Discharged to Home. Impression: Dizziness and giddiness, Chronic atrial fibrillation. - Condition is Stable. - Discharge Instructions: Atrial Fibrillation, Dizziness. - Prescriptions for Meclizine 25 mg Oral Tablet - take 0.5 tablet by ORAL route every 8 hours As needed; 30 tablet. Zofran 4 mg Oral Tablet - take 1 tablet by ORAL route every 12 hours As needed; 20 tablet. - Medication Reconciliation Form, Thank You Letter, Antibiotic Education, Prescription Opioid Use form. - Follow up: Private Physician; When: 1 - 2 days; Reason: Recheck today's complaints. - Problem is new. - Symptoms have improved. Signatures: Dispatcher [employer] EDMS Shaheen Montelongo MD MD kdr Calderon, Audri RN RN aa5 Hector Gomez PA PA cp Antunez, Elena RN RN ea Corrections: (The following items were deleted from the chart) 10/16 16:49 16:48 Normal except: GFR 67. cp cp 19:37 18:57 10/16/2020 18:57 Discharged to Home. Impression: Dizziness and giddiness; Chronic ea atrial fibrillation. Condition is Stable. Forms are Medication Reconciliation Form, Thank You Letter, Antibiotic Education, Prescription Opioid Use. Follow up: Private Physician; When: 1 - 2 days; Reason: Recheck today's complaints. Problem is new. Symptoms have improved. cp 10/17 16:16 10/16 15:30 Patient reports dizziness since this morning. EMS called and reports low cp blood pressure. cp
--- OUTSIDE RECORDS SUMMARY | 2020-10-16 19:35 | XMS REPORT ---
:1945 Author Organization [facility] Address [address] Garza, [address]. [address] [place] [address] Care Team Providers Name Role Phone Aubrie Unavailable [phone] PROBLEMS Type Condition ICD9-CM XCW11-RC Onset Condition SNOMED Code Notes Code Code Dates Status Problem Benign I11.9 Active 29622854 hypertensive heart disease Problem Depression with F41.8 Active 403049878 anxiety Problem Seizures R56.9 Active 62032310 Problem Dry mouth R68.2 Active 50637264 Problem Memory problem R41.3 Active 831694864 Problem History of carotid Z98.890 Active 526611324 Rig ht endarterectomy carotid artery. Problem Other chronic pain G89.29 Active 94023958 Problem Atherosclerosis of I65.22 Active 3100539964062 05 left carotid artery Problem Gastroesophageal K21.9 Active 744121234 reflux disease, esophagitis presence not specified Problem Lumbago with M54.40 Active 454056871 sciatica, unspecified side Problem Macular H35.30 Active 578248812 degeneration Problem Hyperlipidemia, E78.5 Active 83327167 unspecified hyperlipidemia type Problem Cataract H26.9 Active 938545439 recurrent and b/l Problem COPD (chronic J44.9 Active 88673678 obstructive pulmonary disease) Problem Hypoxia R09.02 Active 385101028 intermitte nt, 80s% Problem On supplemental Z78.9 Active 345465418 oxygen by nasal cannula Problem Status post fall Z91.81 Active 929292824 On 03/01/2020. Problem Glaucoma H40.9 Active 57640970 ALLERGIES Allergen (clinical Drug/Non Drug Reaction Allergy Type Onset Date S tatus drug ingredient) Allergy documented on EMR codeine Itching/"climbin Non Drug Active g the regan" Allergy ENCOUNTERS from 1945 to 2020-07-18 Encounter Location Date Provider Diagnosis [facility] [address] [place] Jul, Josefina Aubrie [facility] R41.3 ; [address], Seizures R 56.9 ; [place] [address] degeneration H 35.30 ; Glaucoma H40.9 ; Cataract H26.9 ; COPD (chronic obstru ctive pulmonary disea se) J44.9 ; Other chronic pain G89.29 ; Hyperl ipidemia, unspecified hyperlipidemia type E78.5 ; Depress ion with anxiety F41.8 ; Atherosclerosis of left carotid artery I65.22 ; History of andino tid endarterectomy Z98.890 ; Dry mouth R68.2 ; Gastroesophagea l reflux disease, esopha gitis presence not sp ecified K21.9 ; Lumbago with sciatica, unspe cified side M54.40 ; S tatus post fall Z91.8 1 ; Hypoxia R09.02 ; On supplemental ox ygen by nasal cannula Z 78.9 and Benign hyperten sive heart disease I 11.9 IMMUNIZATIONS No Information SOCIAL HISTORY Tobacco Use: Social History Observation Description Date Details (start date - stop date) Former Smoker Sex Assigned At : Social History Observation Description Sex Assigned At Unknown PHQ9 Question Answer Notes Little interest or pleasure in doing things Several days Feeling down, depressed, or hopeless Several days Trouble falling or staying asleep or sleeping too much More than half the days Feeling tired or having little energy Nearly every day Poor appetite or overeating More than half the days Feeling bad about yourself, or that you are a failure, Sever al days or have let yourself or your family down Trouble concentrating on things, such as reading the Several days newspaper or watching television Moving or speaking so slowly that other people could Not at all have noticed; or the opposite, being so fidgety or restless that you have been moving around a lot more than usual Total Score 11 Interpretation Moderate Depression Thoughts that you would be better off or of Not at all hurting yourself in some way Alcohol Screen Question Answer Notes Did you have a drink containing alcohol in Yes the past year? Points 3 Interpretation Positive How often did you have 6 or more drinks on Never (0 points) one occasion in the past year? How many drinks did you have on a typical 1 or 2 (0 points) day when you were drinking in the past year? How often did you have a drink containing Two to three times per week (3 alcohol in the past year? points) Tobacco Use/Smoking Question Answer Notes Are you a former smoker REASON FOR REFERRAL No Information VITAL SIGNS Height 58.00 in Jul, Weight 90.6 lbs Jul, Temperature 97.5 degrees Fahrenheit Jul, BMI 18.93 kg/m2 Jul, Oximetry 98 % Jul, Respiratory Rate 18 /min Jul, Blood pressure systolic 102 mm Hg Jul, Blood pressure diastolic 60 mm Hg Jul, MEDICATIONS Medication SIG (Take, Route, Start Date End Date Status Frequency, Duration) Omeprazole 20 MG 1 capsule Orally Once a Active day for reflux Trelegy Ellipta 100-62.5-25 1 puff Inhalation Once a Active MCG/INH day Lumigan 0.01 % 1 drop into affected eye A ctive in the evening Ophthalmic Once a day Combivent Respimat 20MCG /100 1 puff Oral Inhalation 4 Active MCG times daily, not to exceed 6 in 24 hrs Metoprolol Tartrate 50 MG 1 tablet Orally Twice a Active day Simvastatin 20 MG 1 tablet in the evening Active Orally Once a day Duloxetine HCl 20 MG 1 capsule Orally Twice a Active day Amitriptyline HCl 50 MG 1 tablet at bedtime Orally Active Once a day Clonazepam 0.5 MG 1 tablet at bedtime Orally Active Once a day as needed Gabapentin 300 MG/6ML 2 ml Orally Once a day Active Amlodipine Besylate 5 MG 1 tablet Orally Once a day Active Restasis 0.05 % 1 drop into affected eye Active Ophthalmic Twice a day Cyclobenzaprine HCl 5 MG 1 tablet at bedtime as Active needed Orally Once a day for 30 days PROCEDURES No Information RESULTS No Results REASON FOR VISIT Re-establish Jayce prince''s PT. In office. MEDICAL (GENERAL) HISTORY Type Description Date Medical History mammogram- not sure Medical History DEXA scan- complete at the age of 67 yo Medical History colonscopy- never, refuses Medical History Tdap vaccine- never, Medical History flu vaccine- never Medical History shingles vaccine- never, but had shingle s Medical History PCV vaccines- had one in the hospital,bu t can remember Medical History Memory problem Medical History Seizures Medical History COPD (chronic obstructive pulmonary dise ase) Medical History Other chronic pain Medical History Hyperlipidemia, unspecified hyperlipidem ia type Medical History Depression with anxiety Medical History Atherosclerosis of left carotid artery Medical History History of carotid endarterectomy Medical History Dry mouth Medical History Gastroesophageal reflux disease, esophag itis presence not specified Medical History Lumbago with sciatica, unspecified side Medical History Status post fall Medical History Hypoxia Medical History On supplemental oxygen by nasal cannula Medical History Benign hypertensive heart disease Medical History Macular degeneration Medical History Glaucoma Medical History Cataract Surgical History 3 C sections Surgical History Gallbladder 2016 Surgical History Right Carotid Artery 2018 Surgical History Bilateral cataract removal; left then ri ght; done 1 month apart; done per Dr. Stewart Hospitalization History snycope 01/27/2020 Goals Section No Information Health Concerns No Information MEDICAL EQUIPMENT No Information MENTAL STATUS No Information FUNCTIONAL STATUS No Information ASSESSMENTS Encounter Date Diagnosis Notes Jul, Other chronic pain (ICD-10 - G89.29) Jul, Benign hypertensive heart disease (ICD-1 0 - I11.9) Jul, COPD (chronic obstructive pulmonary dise ase) (ICD-10 - J44.9) Jul, On supplemental oxygen by nasal cannula (ICD-10 - Z78.9) Jul, Depression with anxiety (ICD-10 - F41.8) Jul, Hyperlipidemia, unspecified hyperlipidem ia type (ICD-10 - E78.5) Jul, Macular degeneration (ICD-10 - H35.30) Jul, Lumbago with sciatica, unspecified side (ICD-10 - M54.40) Jul, Gastroesophageal reflux disease, esophag itis presence not specified (ICD-10 - K21.9) Jul, Cataract (ICD-10 - H26.9) recurrent and b/l Jul, Hypoxia (ICD-10 - R09.02) intermittent, 80s% Jul, Glaucoma (ICD-10 - H40.9) Jul, Status post fall (ICD-10 - Z91.81) On . Jul, History of carotid endarterectomy (ICD-1 0 - Right carotid artery. Z98.890) Jul, Atherosclerosis of left carotid artery ( ICD-10 - I65.22) Jul, Seizures (ICD-10 - R56.9) Jul, Memory problem (ICD-10 - R41.3) Jul, Dry mouth (ICD-10 - R68.2) PLAN OF TREATMENT Medication Medication Name Sig Start Date Stop Date Metoprolol Tartrate 50 MG 1 tablet Orally Twice a day Restasis 0.05 % 1 drop into affected eye Ophthalmic Twice a day Combivent Respimat 20MCG /100 MCG 1 puff Oral Inhalation 4 times daily, not to exceed 6 in 24 hrs Lumigan 0.01 % 1 drop into affected eye in the evening Ophthalmic Once a day Duloxetine HCl 20 MG 1 capsule Orally Twice a day Omeprazole 20 MG 1 capsule Orally Once a day for reflux Amitriptyline HCl 50 MG 1 tablet at bedtime Orally Once a day Trelegy Ellipta 100-62.5-25 MCG/INH 1 puff Inhalation Once a day Gabapentin 300 MG/6ML 2 ml Orally Once a day Cyclobenzaprine HCl 5 MG 1 tablet at bedtime as needed Orally Once a day for 30 days Simvastatin 20 MG 1 tablet in the evening Orally Once a day Clonazepam 0.5 MG 1 tablet at bedtime Orally Once a day as needed Amlodipine Besylate 5 MG 1 tablet Orally Once a day Treatment Notes Assessment Notes Clinical Notes Lumbago with sciatica, unspecified controlled on current med s side Memory problem chronic conditionbut pt made no compliants of memory issues todayrecommend daily fish oil and brain excerises like cross word puzzles to help with memoryshe does have family assisting her and supporting her as well Gastroesophageal reflux disease, controlled on current med esophagitis presence not specified Seizures pt and her daughter states she was [facility] longer on any medsdenies any seizures since last encounter Hypoxia improved, but still intermittent improves with supplemental O2O2 can drop into the 80s without supplemental O2 Macular degeneration f/u optho Status post fall denies any recent falls since last encounterstates her DEXA scan showed she had "good bones" Glaucoma f/u optho Benign hypertensive heart disease recommend to half Norvasc into half and take half in AM and half in PMRTC to check BP in 2 weeksrecommend pt to continue checking her BP in AM and PMwill adjust accordingly Cataract f/u opthoalready had surgery in the past, but are currently reoccuring on both sidespossible surgery again in the future On supplemental oxygen by nasal patient with COPD and does cannula experience episodes of hypoxia. Her O2 at home can drop to the 80s. Her peak flow in office today of 70. lungs CTAB. pt and her family are trying to get insurance to approve of home O2. recommend to f/u pulm for further guidance, but will provide notes and recommendations that patient should be approved for home O2 because she needs it COPD (chronic obstructive pulmonary f/u pulm (Dr Rich)pea k flow of disease) 70 in officeper pt, slight improvement with new medicationlungs CTAB on exam Other chronic pain stable on current med Dry mouth stable on no medscontrolled with lifestyle changes History of carotid endarterectomy as mentioned above Hyperlipidemia, unspecified f/u lipid panel and will treat hyperlipidemia type accordingly Depression with anxiety stable on current medsdenies any si or hidoes recieve clonazepam from cardio (Dr Velez) Atherosclerosis of left carotid f/u cardiocontinue current m eds artery Treatment Notes Test Name Order Date Comp. Metabolic Panel (14) (CMP) 2020-07-18 Ferritin, Serum 2020-07-18 Thyroid Panel With TSH 2020-07-18 Hemoglobin A1c 2020-07-18 Iron and TIBC 2020-07-18 CBC w/ Diff w/o Plt 2020-07-18 Lipid Panel 2020-07-18 Microalbumin, Random Urine 2020-07-18 Next Appt Details 2 Weeks Reason:f/u lab work results, BP check Provider Name:Josefina Alfred, 2020-08-05 1 0:00:00 AM, [address], [address], [place], [address], Provider Name:Libra Eduardo, 2020-08-06 5 01:20:00 PM, [address], [address], [place], [address], Follow Up:2 Weeksf/u lab work results, BP check Insurance Providers Payer Name Payer Payer Insured Patient Coverage Coverage End Address Phone Name Relationship to Start Date Ubaldo e Insured [employer] [phone] Kole Richardson self [facility] [id number] [id number] [place] [id number]
--- OUTSIDE RECORDS SUMMARY | 2020-10-16 19:35 | XMS REPORT ---
:1945 Author Organization [facility] Address [address] Garza, [address] [place] [address] Care Team Providers Name Role Phone Aubrie Unavailable [phone] PROBLEMS Type Condition ICD9-CM [id number] Onset Condition SNOMED Code Notes Code Code Dates Status Problem COPD (chronic J44.9 Active 01523003 obstructive pulmonary disease) Problem Benign I11.9 Active 89214088 hypertensive heart disease Problem Dry mouth R68.2 Active 72228625 Problem Seizures R56.9 Active 84837646 Problem Depression with F41.8 Active 062944524 anxiety Problem Other chronic pain G89.29 Active 13309416 Problem History of carotid Z98.890 Active 469477054 Rig ht endarterectomy carotid artery. Problem Memory problem R41.3 Active 534249356 Problem Gastroesophageal K21.9 Active 358609337 reflux disease, esophagitis presence not specified Problem Lumbago with M54.40 Active 258417239 sciatica, unspecified side Problem On supplemental Z78.9 Active 550392883 oxygen by nasal cannula Problem Cataract H26.9 Active 760507757 recurrent and b/l Problem Atherosclerosis of I65.22 Active 2864965799989 05 left carotid artery Problem CKD (chronic N18.9 Active 371539797 kidney disease) Problem Hyperlipidemia, E78.5 Active 50068500 unspecified hyperlipidemia type Problem Hypoxia R09.02 Active 193857983 intermitte nt, 80s% Problem Status post fall Z91.81 Active 615093793 On 03/01/2020. Problem Glaucoma H40.9 Active 74539029 Problem Macular H35.30 Active 827659096 degeneration ALLERGIES Allergen (clinical Drug/Non Drug Reaction Allergy Type Onset Date S tatus drug ingredient) Allergy documented on EMR codeine Itching/"climbin Non Drug Active g the regan" Allergy ENCOUNTERS from 1945 to 2020-09-16 Encounter Location Date Provider Diagnosis [facility] [address] Taj ROJO Sep, Josefina Aubrie Seizures R56.9 ; [address] [place] [place], problem R4 1.3 ; [place] [address] degeneration H 35.30 ; Glaucoma H40.9 ; [...] ox ygen by nasal cannula Z 78.9 ; Benign hyperten sive heart disease I 11.9 ; CKD (chronic ki dney disease) N18.9 and Abnormal thyroi d blood test R79.89 IMMUNIZATIONS No Information SOCIAL HISTORY Tobacco Use: [...] No Information VITAL SIGNS Height 58.00 in Sep, Weight 90.3 lbs Sep, Temperature 98.1 degrees Fahrenheit Sep, BMI 18.87 kg/m2 Sep, Oximetry 98 % Sep, Respiratory Rate 18 /min Sep, Blood pressure systolic 130 mm Hg Sep, Blood pressure diastolic 60 mm Hg Sep, MEDICATIONS Medication SIG (Take, Route, Notes Start Date End Date Status Frequency, Duration) Omeprazole 20 MG 1 capsule Orally Once Active a day for reflux for 90 days Cyclobenzaprine HCl 5 MG 1 tablet at bedtime as Active needed Orally Once a day for 30 days Gabapentin 300 MG/6ML 2 ml Orally Once a day Active Simvastatin 20 MG 1 tablet in the Ac tive evening Orally Once a day Amitriptyline HCl 50 MG 1 tablet at bedtime Active Orally Once a day Duloxetine HCl 20 MG 1 capsule Orally Twice Active a day Acetaminophen 500 MG 1 tablet as needed Active Orally every 12 hrs for 90 days Combivent Respimat 20MCG 1 puff Oral Inhalation Active /100 MCG 4 times daily, not to exceed 6 in 24 hrs Trelegy Ellipta 100-62.5-25 1 puff Inhalation Once Active MCG/INH a day Lumigan 0.01 % 1 drop into affected Active eye in the evening Ophthalmic Once a day Gabapentin 250 MG/5ML 2 ml Orally Once a day Active in evening Levetiracetam 500 MG 1 tablet Orally Twice Active a day Metoprolol Tartrate 50 MG 1 tablet Orally Twice Active a day Amlodipine Besylate 5 MG 1 tablet Orally Once a Active day Restasis 0.05 % 1 drop into affected Active eye Ophthalmic Twice a day Clonazepam 0.5 MG 1 tablet at bedtime Active Orally Once a day as needed Pro Comfort Tens Unit - as directed topically Sep, Active TID for 90 days Stiolto Respimat 2 puffs inhaled Once a Active 2.5mcg/2.5mcg day for 90 days PROCEDURES No Information RESULTS No Results REASON FOR VISIT 6 wk f/u MEDICAL (GENERAL) HISTORY Type Description Date Medical History High cholesterol Medical History Depression Medical History High blood pressure Medical History Memory problem Medical History Reflux Medical History Anxiety Medical History Seizures Medical History COPD (chronic obstructive pulmonary dise ase) Medical History mammogram- Medical History colonscopy- Medical History DEXA scan- Medical History Tdap vaccine- Medical History Flu vaccine- Medical History Shingles vaccine- Medical History PCV series vaccines- Surgical History 3 C sections Surgical History Gallbladder 2016 Surgical History Right Carotid Artery 2017 Surgical History Bilateral cataract removal; left then ri ght; done 1 month apart; done per Dr. Stewart Hospitalization History snycope 01/27/2020 Goals Section No Information Health Concerns No Information MEDICAL EQUIPMENT No Information MENTAL STATUS No Information FUNCTIONAL STATUS No Information ASSESSMENTS Encounter Date Diagnosis Assessment Treatment Notes Treatment Notes Clinical Notes Sep, Seizures (ICD-10 - pt and her daughter R56.9) states she was removed from [facility] no longer on any meds denies any seizures since last encou nter f/u neurology (Dr Bender) Sep, Memory problem chronic conditio n (ICD-10 - R41.3) but pt made no compliants of memory issues today recommend daily fish oil and brain excerises like cross word puzzles to help with memory she does have family assisting her and supporting her as well Sep, Macular degeneration f/u optho (ICD-10 - H35.30) Sep, Glaucoma (ICD-10 - f/u optho H40.9) Sep, Cataract (ICD-10 - recurrent and f/u optho H26.9) b/l already had surgery in the past, but are currently reoccuring on both sides possible surgery again in the future Sep, COPD (chronic f/u pulm ( obstructive pulmonary Aggrwal) disease) (ICD-10 - peak flow of 70 in J44.9) office per pt, slight improvement with new medication lungs CTAB on exam Sep, Other chronic pain per pt not (ICD-10 - G89.29) controlled she is concern of OA, unable to rx mobic, recommend along with other meds, high dose APAP discussed pain goals will try TENS unit, if no improvment, consider referral to pain management Sep, Hyperlipidemia, controlled on unspecified current dose of hyperlipidemia type statin (ICD-10 - E78.5) Sep, Depression with stable on current anxiety (ICD-10 - meds F41.8) denies any si or hi does recieve clonazepam from cardio (Dr Velez) Sep, Atherosclerosis of f/u cardio left carotid artery continue current (ICD-10 - I65.22) meds Sep, History of carotid Right carotid as mentioned above endarterectomy artery. (ICD-10 - Z98.890) Sep, Dry mouth (ICD-10 - stable on no meds R68.2) controlled with lifestyle changes Sep, Gastroesophageal controlled on reflux disease, current med esophagitis presence not specified (ICD-10 - K21.9) Sep, Lumbago with continue current sciatica, unspecified meds, but will try side (ICD-10 - TENS unit M54.40) worsening neuropathy- recommend to f/u with neurology Sep, Status post fall On 03/01/2020. denies any recent (ICD-10 - Z91.81) falls since last encounter states her DEXA scan showed she had "good bones" Sep, Hypoxia (ICD-10 - intermittent, improved, but still R09.02) 80s% intermittent improves with supplemental O2 O2 can drop into the 80s without supplemental O2 Sep, On supplemental patient with COPD oxygen by nasal and does experience cannula (ICD-10 - episodes of hypoxia. Z78.9) Her O2 at home can drop to the 80s. Her peak flow in office today of 70. lungs CTAB. pt and her family are trying to get insurance to approve of home O2. recommend to f/u pulm for further guidance, but will provide notes and recommendations that patient should be approved for home O2 because she needs it Sep, Benign hypertensive recommend to half heart disease (ICD-10 Norvasc into half - I11.9) and take half in AM and half in PM recommend pt to continue checking her BP in AM and PM will adjust accordingly Sep, CKD (chronic kidney will monitor kidney disease) (ICD-10 - function and refer N18.9) to nephrology. Current eGFR in the 40s__. Avoid NSAIDS. Drink plenty of fluids (at least 75 oz daily). Recommend low sodium, low carb and low protein diet. Advised on tight blood glucose and blood pressue control. Quit smoking and drinking EtOH if patient engages in such activities. normal microalbumin referred to nephrology. f/u recommendations Sep, Abnormal thyroid elevated TSH with blood test (ICD-10 - normal T3 a nd T4 R79.89) will repeat today and will treat accordingly Sep, Other -- Medication(s) reviewed and updated. Dietary and lifestyle modifications discussed with aptient regarding low fat, low carb, low sodium/salt diet, excerise and weight managemen t. -- Treatment options, risks and benefits, side effects reviewed in detail. patient accepts risk. -- Advised on signs/symptoms to monitor and when to call clinic and/or visit the nearest ED. Patient verbalized understanding and agreed with plan of care. -- Greater than 30 mins was spent with the patient during this encounter, of which over 50% of the time was spent counseling and coordinating care including but not limited to discussion of test results, diagnostic or treatment recommendations, prognosis, risks and benefits of management options, instructions, education, compliance and or risk reduction. -- Take med(s) as directed. All risks, benefits and side effects were discussed. All questions and concerns were addressed. PLAN OF TREATMENT Medication Medication Name Sig Start Date Stop Date Trelegy Ellipta 100-62.5-25 1 puff Inhalation Once a day MCG/INH Clonazepam 0.5 MG 1 tablet at bedtime Orally Once a day as needed Combivent Respimat 20MCG /100 MCG 1 puff Oral Inhalation 4 times daily, not to exceed 6 in 24 hrs Acetaminophen 500 MG 1 tablet as needed Orally every 12 hrs for 90 days Restasis 0.05 % 1 drop into affected eye Ophthalmic Twice a day Lumigan 0.01 % 1 drop into affected eye in the evening Ophthalmic Once a day Pro Comfort Tens Unit - as directed topically TID Sep, for 90 days Duloxetine HCl 20 MG 1 capsule Orally Twice a day Simvastatin 20 MG 1 tablet in the evening Orally Once a day Amlodipine Besylate 5 MG 1 tablet Orally Once a day Metoprolol Tartrate 50 MG 1 tablet Orally Twice a day Omeprazole 20 MG 1 capsule Orally Once a day for reflux for 90 days Cyclobenzaprine HCl 5 MG 1 tablet at bedtime as needed Orally Once a day for 30 days Gabapentin 300 MG/6ML 2 ml Orally Once a day Amitriptyline HCl 50 MG 1 tablet at bedtime Orally Once a day Treatment Notes Assessment Notes Clinical Notes Lumbago with sciatica, continue current meds, but will try unspecified side TENS unitworsening neuropathy- recommend to f/u with neurology Seizures pt and her daughter states she was [facility] longer on any medsdenies any seizures since last encounterf/u neurology (Dr Bender) Gastroesophageal reflux disease, controlled on current med esophagitis presence not specified Memory problem chronic conditionbut pt made no compliants of memory issues todayrecommend daily fish oil and brain excerises like cross word puzzles to help with memoryshe does have family assisting her and supporting her as well Hypoxia improved, but still intermittent improves with supplemental O2O2 can drop into the 80s without supplemental O2 Macular degeneration f/u optho Status post fall denies any recent falls since last encounterstates her DEXA scan showed she had "good bones" Glaucoma f/u optho Benign hypertensive heart disease recommend to half Norvasc into half and take half in AM and half in PMrecommend pt to continue checking her BP in AM and PMwill adjust accordingly Cataract f/u opthoalready had surgery in the past, but are currently reoccuring on both sidespossible surgery again in the future On supplemental oxygen by nasal patient with COPD and does e xperience cannula episodes of hypoxia. Her O2 at home [...] because she needs it COPD (chronic obstructive f/u pulm (Dr Rich)peak flow of 70 pulmonary disease) in officeper pt, slight improvement with new medicationlungs CTAB on exam Abnormal thyroid blood test elevated TSH with normal T3 and T4will repeat today and will treat accordingly Other chronic pain per pt not controlledshe is concern of OA, unable to rx mobic, recommend along with other meds, high dose APAPdiscussed pain goalswill try TENS unit, if no improvment, consider referral to pain management CKD (chronic kidney disease) will monitor kidney function an d refer to nephrology. Current eGFR in the 40s__. Avoid NSAIDS. Drink plenty of fluids (at least 75 oz daily). Recommend low sodium, low carb and low protein diet. Advised on tight blood glucose and blood pressue control. Quit smoking and drinking EtOH if patient engages in such activities. normal microalbuminreferred to nephrology. f/u recommendations Dry mouth stable on no medscontrolled with lifestyle changes History of carotid endarterectomy as mentioned above Hyperlipidemia, unspecified controlled on current dose of st atin hyperlipidemia type Depression with anxiety stable on current medsdenies any si or hidoes recieve clonazepam from cardio (Dr Velez) Atherosclerosis of left carotid f/u cardiocontinue current m eds artery Treatment Notes Test Name Order Date Thyroid Panel With TSH 2020-09-16 Next Appt Details Provider Name:Josefina Alfred, 2020-12-16 1 0:20:00 AM, [address], [place], [address], Insurance Providers Payer Name Payer Payer Insured Patient Coverage Coverage End Address Phone Name Relationship to Start Date Ubaldo e Insured [employer] [phone] Kole Richardson self pring [id number] [place] Replace [phone]
--- OUTSIDE RECORDS SUMMARY | 2020-10-16 19:35 | XMS REPORT ---
:1945 Author Organization [facility] Address [address], [address] [place] [address] Care Team Providers Name Role Phone Aubrie Unavailable [phone] PROBLEMS Type Condition ICD9-CM [id number] Onset Condition SNOMED Code Notes Code Code Dates Status Problem COPD (chronic J44.9 Active 52349108 obstructive pulmonary disease) Problem Benign I11.9 Active 22853683 hypertensive heart disease Problem Dry mouth R68.2 Active 50045795 Problem Seizures R56.9 Active 13230761 Problem Depression with F41.8 Active 849733922 anxiety Problem Other chronic pain G89.29 Active 58298845 Problem History of carotid Z98.890 Active 716743166 Rig ht endarterectomy carotid artery. Problem Memory problem R41.3 Active 960509121 Problem Gastroesophageal K21.9 Active 021115864 reflux disease, esophagitis presence not specified Problem Lumbago with M54.40 Active 914752973 sciatica, unspecified side Problem On supplemental Z78.9 Active 608615010 oxygen by nasal cannula Problem Cataract H26.9 Active 249039501 recurrent and b/l Problem Atherosclerosis of I65.22 Active 4055680811686 05 left carotid artery Problem CKD (chronic N18.9 Active 182757595 kidney disease) Problem Hyperlipidemia, E78.5 Active 03157248 unspecified hyperlipidemia type Problem Hypoxia R09.02 Active 851078928 intermitte nt, 80s% Problem Status post fall Z91.81 Active 677817662 On 03/01/2020. Problem Glaucoma H40.9 Active 45760278 Problem Macular H35.30 Active 743113894 degeneration ALLERGIES Allergen (clinical Drug/Non Drug Reaction Allergy Type Onset Date S tatus drug ingredient) Allergy documented on EMR codeine Itching/"climbin Non Drug Active g the regan" Allergy ENCOUNTERS from 1945 to 2020-09-18 Encounter Location Date Provider Diagnosis [address] Sep, 2020 [place] [address] IMMUNIZATIONS No Information SOCIAL HISTORY Tobacco Use: [...] REASON FOR REFERRAL No Information VITAL SIGNS No information MEDICATIONS Medication SIG (Take, Route, Notes Start [...] Information RESULTS No Results REASON FOR VISIT f/u lab MEDICAL (GENERAL) HISTORY Type Description Date Medical [...] History 3 C sections Surgical History Gallbladder 2017 Surgical History Right Carotid Artery 2018 Surgical History Bilateral cataract removal; left then ri ght; done 1 month apart; done per Dr. Stewart Hospitalization History snycope 01/27/2020 Goals Section No Information Health Concerns No Information MEDICAL EQUIPMENT No Information MENTAL STATUS No Information FUNCTIONAL STATUS No Information ASSESSMENTS No Information PLAN OF TREATMENT Medication Medication Name Sig [...] tablet at bedtime Orally Once a day Next Appt Details Provider Name:Josefina Alfred, 2020-12-16 1 0:20:00 AM, [address], [place], [address], Insurance Providers Payer Name Payer Payer Insured Patient Coverage Coverage End Address Phone Name Relationship to Start Date Ubaldo e Insured [employer] [phone] Kole Richardson self prin [id number] [phone] [place] Replace [phone]
--- OUTSIDE RECORDS SUMMARY | 2020-10-16 19:35 | XMS REPORT ---
:1945 Author Organization [facility] Address [address], [address] [place] [address] Care Team Providers Name Role Phone Aubrie Unavailable [phone] PROBLEMS Type Condition ICD9-CM [id number] Onset Condition SNOMED Code Notes Code Code Dates Status Problem COPD (chronic J44.9 Active 97101989 obstructive pulmonary disease) Problem Benign I11.9 Active 59043292 hypertensive heart disease Problem Dry mouth R68.2 Active 23695588 Problem Seizures R56.9 Active 22082477 Problem Depression with F41.8 Active 807053188 anxiety Problem Other chronic pain G89.29 Active 91400330 Problem History of carotid Z98.890 Active 792158625 Rig ht endarterectomy carotid artery. Problem Memory problem R41.3 Active 369597147 Problem Gastroesophageal K21.9 Active 186027897 reflux disease, esophagitis presence not specified Problem Lumbago with M54.40 Active 629923999 sciatica, unspecified side Problem On supplemental Z78.9 Active 558715962 oxygen by nasal cannula Problem Cataract H26.9 Active 864188498 recurrent and b/l Problem Atherosclerosis of I65.22 Active 1746641730116 05 left carotid artery Problem CKD (chronic N18.9 Active 754056212 kidney disease) Problem Hyperlipidemia, E78.5 Active 21855276 unspecified hyperlipidemia type Problem Hypoxia R09.02 Active 420114316 intermitte nt, 80s% Problem Status post fall Z91.81 Active 506122762 On 03/01/2020. Problem Glaucoma H40.9 Active 87753362 Problem Macular H35.30 Active 509012980 degeneration ALLERGIES Allergen (clinical Drug/Non Drug Reaction Allergy Type Onset Date S tatus drug ingredient) Allergy documented on EMR codeine Itching/"climbin Non Drug Active g the regan" Allergy ENCOUNTERS from 1945 to 2020-08-14 Encounter Location Date Provider Diagnosis [facility] [address] [facility] [address], [place] [address] IMMUNIZATIONS No Information SOCIAL HISTORY Tobacco Use: [...] Start Date End Date Status Frequency, Duration) Gabapentin 300 MG/6ML 2 ml Orally Once a day Active Restasis 0.05 % 1 drop into affected Active eye Ophthalmic Twice a day Metoprolol Tartrate 50 MG 1 tablet Orally Twice a Active day Cyclobenzaprine HCl 5 MG 1 tablet at bedtime as Active needed Orally Once a day for 30 days Amlodipine Besylate 5 MG 1 tablet Orally Once a Active day Duloxetine HCl 20 MG 1 capsule Orally Twice Active a day Acetaminophen 500 MG 1 tablet as needed Active Orally every 12 hrs for 90 days Lumigan 0.01 % 1 drop into affected Active eye in the evening Ophthalmic Once a day Amitriptyline HCl 50 MG 1 tablet at bedtime Active Orally Once a day Trelegy Ellipta 100-62.5-25 1 puff Inhalation Once Active MCG/INH a day Clonazepam 0.5 MG 1 tablet at bedtime Active Orally Once a day as needed Simvastatin 20 MG 1 tablet in the evening Active Orally Once a day Combivent Respimat 20MCG /100 1 puff Oral Inhalation Active MCG 4 times daily, not to exceed 6 in 24 hrs Omeprazole 20 MG 1 capsule Orally Once a Active day for reflux for 90 days PROCEDURES No Information RESULTS No Results REASON FOR VISIT Lab Results MEDICAL (GENERAL) HISTORY Type Description Date Medical [...] Medication Name Sig Start Date Stop Date Amlodipine Besylate 5 MG 1 tablet Orally Once a day Simvastatin 20 MG 1 tablet in the evening Orally Once a day Cyclobenzaprine HCl 5 MG 1 tablet at bedtime as needed Orally Once a day for 30 days Metoprolol Tartrate 50 MG 1 tablet Orally Twice a day Acetaminophen 500 MG 1 tablet as needed Orally every 12 hrs for 90 days Gabapentin 300 MG/6ML 2 ml Orally Once a day Lumigan 0.01 % 1 drop into affected eye in the evening Ophthalmic Once a day Restasis 0.05 % 1 drop into affected eye Ophthalmic Twice a day Trelegy Ellipta 100-62.5-25 MCG/INH 1 puff Inhalation Once a day Combivent Respimat 20MCG /100 MCG 1 puff Oral Inhalation 4 times daily, not to exceed 6 in 24 hrs Duloxetine HCl 20 MG 1 capsule Orally Twice a day Amitriptyline HCl 50 MG 1 tablet at bedtime Orally Once a day Clonazepam 0.5 MG 1 tablet at bedtime Orally Once a day as needed Omeprazole 20 MG 1 capsule Orally Once a day for reflux for 90 days Next Appt Details Provider Name:Josefina Alfred, 2020-09-16 1 0:40:00 AM, [address], [address], [place], [address], Insurance Providers Payer Name Payer Payer Insured Patient Coverage Coverage End Address Phone Name Relationship to Start Date [facility]baldo e [facility] [phone] Kole Richardson self prin [id number] [place] Replace [phone]
--- OUTSIDE RECORDS SUMMARY | 2020-10-16 19:35 | XMS REPORT ---
:1945 Author Organization [facility] Address [address] Garza, Carlos. [address] [place] [address] Care Team Providers Name Role Phone Aubrie Unavailable [phone] PROBLEMS Type Condition ICD9-CM [id number] Onset Condition SNOMED Code Notes Code Code Dates Status Problem Benign I11.9 Active 87313427 hypertensive heart disease Problem Depression with F41.8 Active 720442499 anxiety Problem Seizures R56.9 Active 75717925 Problem Dry mouth R68.2 Active 00762322 Problem Memory problem R41.3 Active 679036087 Problem History of carotid Z98.890 Active 446729357 Rig ht endarterectomy carotid artery. Problem Other chronic pain G89.29 Active 28196679 Problem Atherosclerosis of I65.22 Active 7671421042964 05 left carotid artery Problem Gastroesophageal K21.9 Active 220325174 reflux disease, esophagitis presence not specified Problem Lumbago with M54.40 Active 608412604 sciatica, unspecified side Problem Macular H35.30 Active 193063476 degeneration Problem Hyperlipidemia, E78.5 Active 04592647 unspecified hyperlipidemia type Problem Cataract H26.9 Active 996546903 recurrent and b/l Problem COPD (chronic J44.9 Active 67336617 obstructive pulmonary disease) Problem Hypoxia R09.02 Active 260236645 intermitte nt, 80s% Problem On supplemental Z78.9 Active 566618747 oxygen by nasal cannula Problem Status post fall Z91.81 Active 939634584 On 03/01/2020. Problem Glaucoma H40.9 Active 44253820 ALLERGIES Allergen (clinical Drug/Non Drug Reaction Allergy Type Onset Date S tatus drug ingredient) Allergy documented on EMR codeine Itching/"climbin Non Drug Active g the regan" Allergy ENCOUNTERS from 1945 to 2020-07-23 Encounter Location Date Provider Diagnosis [facility] Julissa Vang [address] Jul, 2020 [place] [address] IMMUNIZATIONS No Information SOCIAL HISTORY Tobacco Use: [...] 1 capsule Orally Twice Active a day Amitriptyline HCl 50 MG 1 tablet at bedtime Active Orally Once a day Clonazepam 0.5 MG 1 tablet at bedtime Active Orally Once a day as needed Gabapentin 300 MG/6ML 2 ml Orally Once a day Active Amlodipine Besylate 5 MG 1 tablet Orally Once a Active day Restasis 0.05 % 1 drop into affected Active eye Ophthalmic Twice a day Cyclobenzaprine HCl 5 MG 1 tablet at bedtime as Active needed Orally Once a day for 30 days PROCEDURES No Information RESULTS No Results REASON FOR VISIT No Information MEDICAL (GENERAL) HISTORY Type Description Date Medical [...] MG 1 tablet Orally Once a day Next Appt Details Provider Name:Josefina Alfred, 2020-08-05 1 0:00:00 AM, [address], [address], [place], [address], Insurance Providers Payer Name Payer Payer Insured Patient Coverage Coverage End Address Phone Name Relationship to Start Date Ubaldo e Insured [email or web address] [phone] Kole Richardson self prin [id number] [place] Replace [phone]
--- OUTSIDE RECORDS SUMMARY | 2020-10-16 19:35 | XMS REPORT ---
:1945 Author Organization [facility] Address [address] Garza, Carlos. [address] [place] [address] Care Team Providers Name Role Phone Aubrie Unavailable [phone] PROBLEMS Type Condition ICD9-CM [id number] Onset Condition SNOMED Code Notes Code Code Dates Status Problem COPD (chronic J44.9 Active 20191861 obstructive pulmonary disease) Problem Benign I11.9 Active 57392384 hypertensive heart disease Problem Dry mouth R68.2 Active 71787046 Problem Seizures R56.9 Active 50317243 Problem Depression with F41.8 Active 155753047 anxiety Problem Other chronic pain G89.29 Active 61682666 Problem History of carotid Z98.890 Active 893555145 Rig ht endarterectomy carotid artery. Problem Memory problem R41.3 Active 905935400 Problem Gastroesophageal K21.9 Active 902988200 reflux disease, esophagitis presence not specified Problem Lumbago with M54.40 Active 233508771 sciatica, unspecified side Problem On supplemental Z78.9 Active 321670135 oxygen by nasal cannula Problem Cataract H26.9 Active 479648039 recurrent and b/l Problem Atherosclerosis of I65.22 Active 6873413207596 05 left carotid artery Problem CKD (chronic N18.9 Active 499387114 kidney disease) Problem Hyperlipidemia, E78.5 Active 82196829 unspecified hyperlipidemia type Problem Hypoxia R09.02 Active 895593741 intermitte nt, 80s% Problem Status post fall Z91.81 Active 227839749 On 03/01/2020. Problem Glaucoma H40.9 Active 25600489 Problem Macular H35.30 Active 938956098 degeneration ALLERGIES Allergen (clinical Drug/Non Drug Reaction Allergy Type Onset Date S tatus drug ingredient) Allergy documented on EMR codeine Itching/"climbin Non Drug Active g the regan" Allergy ENCOUNTERS from 1945 to 2020-08-05 Encounter Location Date Provider Diagnosis [facility] [place] [address] [place] Jul, Josefina Aubrie Memory pr oblem R41.3 ; [address] [place], Seizures R 56.9 ; [place] [address] degeneration H 35.30 ; Glaucoma H40.9 ; [...] VITAL SIGNS Height 58.00 in Jul, Weight 90.2 lbs Jul, Temperature 97.7 degrees Fahrenheit Jul, BMI 18.85 kg/m2 Jul, Respiratory Rate 16 /min Jul, Blood pressure systolic 102 mm Hg Jul, Blood pressure diastolic 60 mm Hg Jul, MEDICATIONS Medication SIG (Take, Route, Notes Start [...] Information RESULTS No Results REASON FOR VISIT Follow up MEDICAL (GENERAL) HISTORY Type Description Date Medical [...] Assessment Treatment Notes Treatment Notes Clinical Notes Jul, Memory problem chronic conditio n (ICD-10 - R41.3) but pt made no compliants of memory issues today recommend daily fish oil and brain excerises like cross word puzzles to help with memory she does have family assisting her and supporting her as well Jul, Seizures (ICD-10 - pt and her daughter R56.9) states she was removed from [facility] no longer on any meds denies any seizures since last encou nter f/u neurology (Dr Bender) Jul, Macular degeneration f/u optho (ICD-10 - H35.30) Jul, Glaucoma (ICD-10 - f/u optho H40.9) Jul, Cataract (ICD-10 - recurrent and f/u optho H26.9) b/l already had surgery in the past, but are currently reoccuring on both sides possible surgery again in the future Jul, COPD (chronic f/u pulm ( obstructive pulmonary Aggrwal) disease) (ICD-10 - peak flow of 70 in J44.9) office per pt, slight improvement with new medication lungs CTAB on exam Jul, Other chronic pain stable on current (ICD-10 - G89.29) med she is concern of OA, unable to rx mobic, recommend along with other meds, high dose APAP discussed pain goals will f/u in 6 weeks Jul, Hyperlipidemia, controlled on unspecified current dose of hyperlipidemia type statin (ICD-10 - E78.5) Jul, Depression with stable on current anxiety (ICD-10 - meds F41.8) denies any si or hi does recieve clonazepam from cardio (Dr Velez) Jul, Atherosclerosis of f/u cardio left carotid artery continue current (ICD-10 - I65.22) meds Jul, History of carotid Right carotid as mentioned above endarterectomy artery. (ICD-10 - Z98.890) Jul, Dry mouth (ICD-10 - stable on no meds R68.2) controlled with lifestyle changes Jul, Gastroesophageal controlled on reflux disease, current med esophagitis presence not specified (ICD-10 - K21.9) Jul, Lumbago with controlled on sciatica, unspecified current me ds side (ICD-10 - worsening M54.40) neuropathy- recommend to f/u with neurology Jul, Status post fall On 03/01/2020. denies any recent (ICD-10 - Z91.81) falls since last encounter states her DEXA scan showed she had "good bones" Jul, Hypoxia (ICD-10 - intermittent, improved, but still R09.02) 80s% intermittent improves with supplemental O2 O2 can drop into the 80s without supplemental O2 Jul, On supplemental patient with COPD oxygen by [...] for home O2 because she needs it Jul, Benign hypertensive recommend to half heart disease (ICD-10 Norvasc into half - I11.9) and take half in AM and half in PM recommend pt to continue checking her BP in AM and PM will adjust accordingly Jul, CKD (chronic kidney will monitor kidney disease) (ICD-10 - function and refer N18.9) to nephrology. Current eGFR in the 40s__. Avoid NSAIDS. Drink plenty of fluids (at least 75 oz daily). Recommend low sodium, low carb and low protein diet. Advised on tight blood glucose and blood pressue control. Quit smoking and drinking EtOH if patient engages in such activities.f/u microalbumin Jul, Abnormal thyroid elevated TSH with blood test (ICD-10 - normal T3 a nd T4 R79.89) will repeat in 6 weeks and will treat accordingly Jul, Other -- Medication(s) reviewed and updated. Dietary [...] a day for reflux for 90 days Treatment Notes Assessment Notes Clinical Notes Lumbago with sciatica, unspecified controlled on current side medsworsening neuropathy- recommend to f/u with neurology Memory problem chronic conditionbut pt made no compliants of memory issues todayrecommend daily fish oil and brain excerises like cross word puzzles to help with memoryshe does have family assisting her and supporting her as well Gastroesophageal reflux disease, controlled on current med esophagitis presence not specified Seizures pt and her daughter states [facility] longer on any medsdenies any seizures since last encounterf/u neurology (Dr Bender) Hypoxia improved, but still intermittent improves with [...] COPD (chronic obstructive pulmonary f/u pulm (Dr iRch)pea k flow of disease) 70 in officeper pt, slight improvement with new medicationlungs CTAB on exam Abnormal thyroid blood test elevated TSH with normal T3 and T4will repeat in 6 weeks and will treat accordingly Other chronic pain stable on current medshe is concern of OA, unable to rx mobic, recommend along with other meds, high dose APAPdiscussed pain goalswill f/u in 6 weeks CKD (chronic kidney disease) will monitor kidney function an d refer to nephrology. Current eGFR in the 40s__. Avoid NSAIDS. Drink plenty of fluids (at least 75 oz daily). Recommend low sodium, low carb and low protein diet. Advised on tight blood glucose and blood pressue control. Quit smoking and drinking EtOH if patient engages in such activities.f/u microalbumin Dry mouth stable on no medscontrolled with lifestyle changes History of carotid endarterectomy as mentioned above Hyperlipidemia, unspecified controlled on current dose of hyperlipidemia type statin Depression with anxiety stable on current medsdenies any si or hidoes recieve clonazepam from cardio (Dr Velez) Atherosclerosis of left carotid f/u cardiocontinue current m eds artery Treatment Notes Test Name Order Date Microalbumin, Random Urine 2020-08-05 Next Appt Details 6 Weeks Reason:f/u symptoms, f/u thyroid Provider Name:Josefina Alfred, 2020-09-16 1 0:40:00 AM, [address] Vang, [address], [place], [address], Follow Up:6 Weeksf/u symptoms, f/u thyroid Insurance Providers Payer Name Payer Payer Insured Patient Coverage Coverage End Address Phone Name Relationship to Start Date Ubaldo e Insured [employer] [phone] Kole Richardson self prin [id number] [place] Replace [phone]
--- OUTSIDE RECORDS SUMMARY | 2020-10-16 19:35 | XMS REPORT ---
:1945 Author Organization [facility] Address [address] Garza, Carlos. [address] [place] [address] Care Team Providers Name Role Phone Aubrie Unavailable [phone] PROBLEMS Type Condition ICD9-CM AIE01-RN Onset Condition SNOMED Code Notes Code Code Dates Status Problem COPD (chronic J44.9 Active 09290510 obstructive pulmonary disease) Problem Benign I11.9 Active 43169179 hypertensive heart disease Problem Dry mouth R68.2 Active 82741547 Problem Seizures R56.9 Active 31129208 Problem Depression with F41.8 Active 168860531 anxiety Problem Other chronic pain G89.29 Active 67058753 Problem History of carotid Z98.890 Active 043401889 Rig ht endarterectomy carotid artery. Problem Memory problem R41.3 Active 582824173 Problem Gastroesophageal K21.9 Active 746291368 reflux disease, esophagitis presence not specified Problem Lumbago with M54.40 Active 031068694 sciatica, unspecified side Problem On supplemental Z78.9 Active 866818330 oxygen by nasal cannula Problem Cataract H26.9 Active 203370519 recurrent and b/l Problem Atherosclerosis of I65.22 Active 7050108561530 05 left carotid artery Problem CKD (chronic N18.9 Active 052151306 kidney disease) Problem Hyperlipidemia, E78.5 Active 42605700 unspecified hyperlipidemia type Problem Hypoxia R09.02 Active 192656604 intermitte nt, 80s% Problem Status post fall Z91.81 Active 393185318 On 03/01/2020. Problem Glaucoma H40.9 Active 49099090 Problem Macular H35.30 Active 323248499 degeneration ALLERGIES Allergen (clinical Drug/Non Drug Reaction Allergy Type Onset Date S tatus drug ingredient) Allergy documented on EMR codeine Itching/"climbin Non Drug Active g the regan" Allergy ENCOUNTERS from 1945 to 2020-09-30 Encounter Location Date Provider Diagnosis [facility] [address] [facility] [address], [place] [address] IMMUNIZATIONS No Information SOCIAL HISTORY Tobacco Use: [...] Information RESULTS No Results REASON FOR VISIT Heart racing MEDICAL (GENERAL) HISTORY Type Description Date Medical [...] Name:Josefina Alfred, 2020-12-16 1 0:20:00 AM, [address], [address], [place], [address], Insurance Providers Payer Name Payer Payer Insured Patient Coverage Coverage End Address Phone Name Relationship to Start Date Ubaldo e Insured [employer] [phone] Kole Richardson self prin [id number] [phone] [place] Replace [phone]
--- OUTSIDE RECORDS SUMMARY | 2020-10-16 19:35 | XMS REPORT | Continuity of Care Document ---
:1945 Author Organization [facility] t Address [address] [place] [address] Care Team Providers Name Role Phone Unavailable Unavailable Unavailable Problems This patient has no known problems. Allergies, Adverse Reactions, Alerts Allergy Allergy Status Severity Reaction(s) Onset Inactive Treating Comm ents Source Name Type Date Date Clinician codeine Adverse Active Itching/"[facility] Medications Ordered Filled Start Stop Current Ordering Indication Dosage Frequency Signature Comments Components Source Medication Medication Date Date Medication? Clinician (SIG) Name Name Cyclobenzap Cyclobenzap 2020-0 2020- No Libra as [facility] rine HCl rine HCl 6-29 10-09 Millender directed [facility] Amitriptyli Amitriptyli Yes Libra [address] [facility] ne HCl ne HCl Millender at bedtime [facility] Simvastatin Simvastatin Yes Libra [address] [facility] Millender in the [facility] Duloxetine Duloxetine Yes Libra [address] [facility] HCl HCl Millender [facility] Clonazepam Clonazepam Yes Libra [address] [facility] Millender at bedtime [facility] Restasis Restasis Yes Libra [address] [facility] Millender into [facility] affected [facility] Amlodipine Amlodipine Yes Libra 1 [...] [address] [facility] Respimat Respimat 05-07 Millender needed [facility] Stiolto Stiolto 2020- No Libra [address] [facility] Respimat Respimat 05-07 Millender L [facility] - 00:00 [facility] Procedures This patient has no known procedures. Encounters Start End Encounter Admission Attending Care Care Encounter Source Date/Time Date/Time Type Type Clinicians Facility Department ID 2020-09-30 2020-09-30 Outpatient [facility] [id number] [facility] 2020-09-18 2020-09-18 Outpatient [facility] [id number] [facility] 2020-09-16 2020-09-16 Outpatient [facility] [id number] [facility] 2020-08-13 2020-08-13 Outpatient [facility] [id number] [facility] 2020-08-05 2020-08-05 Outpatient [facility] [id number] [facility] 2020-07-23 2020-07-23 Out[facility] [id number] [facility] 2020-07-18 2020-07-18 Out[facility] [id number] [facility] 2020-07-10 2020-07-10 Out[facility] [id number] [facility] 2020-07-04 2020-07-04 [facility] [id number] [facility] 2020-06-13 2020-06-13 Out[facility] [id number] [facility] 2020-06-12 2020-06-12 Out[facility] [id number] [facility] 2020-06-05 2020-06-05 Out[facility] [id number] [facility] 2020-06-05 2020-06-05 Out[facility] [id number] [facility] 2020-05-21 2020-05-21 Out[facility] [id number] [facility] 2020-04-11 2020-04-11 [facility] [id number] 15:42:00 15:42:00 [facility] l Medicine Outpati ent Clinics 2020-04-04 2020-04-04 [facility] [id number] 11:00:00 11:00:00 [facility] Medicine l Medicine Outpati ent Clinics 2020-04-02 2020-04-02 [facility] [id number] 16:41:00 16:41:00 [facility] Medicine Medicine Outpati ent Clinics 2020-03-27 2020-03-27 [facility] [id number] 09:05:00 09:05:[address] [facility] Medicine Outpati ent Clinics 2020-03-18 2020-03-18 [facility] [id number] 14:30:00 14:30:00 t [facility] Medicine Medicine Outpati ent Clinics 2020-03-04 2020-03-04 [facility] [id number] 15[facility]57:00 15:57:[address] [facility] Medicine Outpati ent Clinics 2020-03-04 2020-03-04 [facility] [id number] 11:00:00 11:00:00 [facility] Medicine Outpati ent Clinics 2020-02-28 2020-02-28 [facility] [id number] 16:56:00 16:56:00 t [facility] Medicine Medicine Outpati ent Clinics 2020-02-25 2020-02-25 [facility] [id number] 18:47:00 18:47:00 [facility] Medicine Outpati ent Clinics 2020-02-21 2020-02-21 [facility] [id number] 10:01:00 10:01:00 [facility] Medicine Medicine Outpati ent Clinics 2020-02-16 2020-02-16 [facility] [id number] 11:00:00 11:00:00 t [facility] Medicine Medicine Outpati ent Clinics 2020-02-14 2020-02-14 [facility] [id number] 18:14:00 18:14:[address] [facility] Medicine Outpati ent Clinics 2020-02-09 2020-02-09 [facility] [id number] 16:33:00 16:33:00 [facility] Medicine Outpati ent Clinics 2020-02-01 2020-02-01 [facility] [id number] 09:00:00 09:00:00 [facility] Medicine Outpati ent Clinics 2019-12-25 2019-12-25 [facility] [id number] 10:00:00 10:00:00 [facility] Medicine Outpati ent Clinics 2019-11-24 2019-11-24 [facility] [id number] 08:25:00 08:25:00 [facility] Medicine Outpati ent Clinics 2019-11-15 2019-11-15 [facility] [id number] 10:30:00 10:30:00 [facility] Results This patient has no known results.
[2020-10-16 19:46] VITALS: BP 112/70; TEMP 98; O2SAT 98
== END 2020-10-16 19:37 | disposition home or self-care (01) ==
LOC: ER 15:19
DX: I48.20 Chronic atrial fibrillation, unspecified (principal); F10.20 Alcohol dependence, uncomplicated; I10 Essential (primary) hypertension; J44.9 Chronic obstructive pulmonary disease, unspecified; F41.8 Other specified anxiety disorders; I65.29 Occlusion and stenosis of unspecified carotid artery; Z88.3 Allergy status to other anti-infective agents; Z88.5 Allergy status to narcotic agent; Z88.8 Allergy status to other drugs, medicaments and biological substances; Z91.048 Other nonmedicinal substance allergy status
CPT/HCPCS: 85025; 80048; 36415; 83735; 85610; 80076; 84484; 83880; 70450; 70496; 70498; 71045; Q9967; J2405; 81003; 81015; 93005; 96374; 99285

== ENCOUNTER 2020-12-09 06:21 | Observation (INO) | payer OTHER ==
[2020-12-06 13:16] LABS: Absolute Lymphocytes (CBC) 1.6 K/uL (0.7-4.9); Basophils % 1.3 % (0-1.3); Hematocrit 36.2 % (36.0-45.0); Lymphocytes % 20.2 % (15.3-44.8); MPV 6.9 fL (7.6-11.3); RBC Red Blood Cell Count 3.92 M/uL (3.86-4.86)
[2020-12-06 13:35] LABS: Protime INR 0.93
[2020-12-06 13:53] LABS: Potassium 5.2 mmol/L (3.5-5.1)
[2020-12-06 14:07] LABS: SARS-COV-2 RT PCR NEGATIVE (NEGATIVE)
[2020-12-09] MEDS ORDERED: NA CHLORIDE 0.9% 500 ML ONE (06:55)
[2020-12-09] MEDS ORDERED: HEPA 1000U/500MLS 1,000 UNIT/500 ML BAG IV ONE ×2 (07:10→09:28)
[2020-12-09] MEDS ORDERED: LIDOCAINE 1% 20 ML MDV ONE (07:10)
[2020-12-09] MEDS ORDERED: HEPARIN 5000 UNIT/ML 1 ML VIAL ONE (07:37)
[2020-12-09] MEDS ORDERED: ATROPINE SULF 1 MG/10 ML SYR IV ONE (07:38)
[2020-12-09] MEDS ORDERED: MIDAZOLAM HCL 2 MG/2 ML INJ ONE ×3 (07:38→08:21)
[2020-12-09] MEDS ORDERED: FENTANYL CITR 100 MCG/2 ML ONE ×2 (07:38→08:37)
[2020-12-09] MEDS ORDERED: CLOPIDOGREL 75 MG TABLET ONE (08:42)
[2020-12-09] MEDS ORDERED: HEPARIN IV ONE (09:18)
--- NOTE | 2020-12-09 13:00 | OP ---
Date of Procedure: 12/09/2020 Surgeon: Bill Velez MD [place] Guide: Margarito Duval. Patient was brought to the laboratory sampler on 12/09/2020 as an outpatient. Indication For Procedure: Peripheral arterial disease. Procedure In Detail: Ms. Richardson is 75, has a history of peripheral arterial disease in the past. She has history of heavy tobacco use, hypertension, dyslipidemia, severe claudication, abnormal kashmir pheral arterial Doppler in the past, brought to the laboratory sampler today as an outpatient, prepped and drap ed in the routine sterile fashion. Given Versed and fentanyl for sedation. She really had no pulse in the arterial femoral region. She had 10 cc of Xylocaine for numbness and initially introduced a v enous sheath 6-Thai for landmark. Following that, I was able to access the common femoral artery w ith a 6-Thai sheath using Seldinger technique. A pigtail catheter was advanced above the renals. Abdominal angiogram with runoff showed normal renal, diffusely diseased aorta, but no focal stenosis. There was an 80% stenosis in the right common femoral artery, 80% stenosis in the right common liz c artery. There was an 80% stenosis in the left common femoral artery and an 80% stenosis in the lef t external iliac artery. We decided to intervene. The pigtail was pulled out. 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 We decided to place a stent in the previous stenosis to cover the dissection; however, a picture before we did that showed that the dissection has resolv ed spontaneously. Nevertheless, a 6 x 39 Omnilink stent was placed over 0.035 long exchange Wholey w soheila. 0% residual in that area. No dissection was visible. The patient tolerated the procedure well . No significant complication. Blood loss was 5 mL. StarClose was used to close the case. Postoperative Diagnosis: Severe peripheral arterial disease, status post successful primary stent wi th common iliac artery and common femoral artery and 1 stent. We will plan to bring her back one day to do the left side with stenting of the common femoral and external iliac on the left. Patient did receive Plavix, aspirin. I will give her heparin for about 8 hours only because of the d issection above. Anesthesia: Total conscious sedation was 60 minutes. NB/MODL Voice ID: [id number] Report ID: [id number]
[2020-12-09 14:47] LABS: Protime INR 1.01
[2020-12-09] MEDS ORDERED: HEPARIN/D5W 25,000 UNIT/500 ML BAG IV PRN (16:00)
[2020-12-09] MEDS ORDERED: NA CHLORIDE 0.9% 1,000 ML ONE (16:39)
--- OUTSIDE RECORDS SUMMARY | 2020-12-09 18:12 | XMS REPORT | Continuity of Care Document ---
:1945 Author Organization [facility] t Address [address] [place] [address] Care Team Providers Name Role Phone Unavailable Unavailable Unavailable Problems This patient has no known problems. Allergies, Adverse Reactions, Alerts Allergy Allergy Status Severity Reaction(s) Onset Inactive Treating Comm ents Source Name Type Date Date Clinician codeine Adverse Active Itching/"cli [facility] Medications Ordered Filled Start Stop Current Ordering Indication Dosage Frequency Signature Comments Components Source Medication Medication Date Date Medication? Clinician (SIG) Name Name Cyclobenzap Cyclobenzap 2020-0 2020- No Libra as [facility] rine HCl rine HCl 6-29 10-09 Millender directed [facility] Amitriptyli Amitriptyli Yes Libra [address] [facility] ne HCl ne HCl Millender at bedtime [facility] Simvastatin Simvastatin Yes Libra [address] [facility] Millender in the [facility] Duloxetine Duloxetine Yes Libra [address] [facility] HCl HCl Millender [facility] Clonazepam Clonazepam Yes Libra [address] [facility] Millender at bedtime [facility] Restasis Restasis Yes Lirba [address] [facility] Millender into [facility] affected [facility] Amlodipine Amlodipine Yes Libra 1 [...] Date/Time Type Type Clinicians Facility Department ID 2020-11-25 2020-11-[address] [facility] [id number] [facility] 2020-11-08 2020-11-08 [facility] [id number] [facility] 2020-11-04 2020-11-04 [facility] [id number] [facility] 2020-10-29 2020-10-29 [facility] [id number] [facility] 2020-09-30 2020-09-30 [facility] [id number] [facility] 2020-09-18 2020-09-18 Outpatient [facility] [id number] [facility] 2020-09-16 2020-09-16 Out[facility] [id number] [facility] 2020-08-13 2020-08-13 Out[facility] [id number] [facility] 2020-08-05 2020-08-05 Out[facility] [id number] [facility] 2020-07-23 2020-07-23 Out[facility] [id number] [facility] 2020-07-18 2020-07-18 Out[facility] [id number] [facility] 2020-07-10 2020-07-10 Out[facility] [id number] [facility] 2020-07-04 2020-07-04 Out[facility] [id number] [facility] 2020-06-13 2020-06-13 Out[facility] [id number] [facility] 2020-06-12 2020-06-12 Out[facility] [id number] [facility] 2020-06-05 2020-06-05 Out[facility] [id number] [facility] 2020-06-05 2020-06-05 Outpatient [facility] [id number] [facility] 2020-05-21 2020-05-21 [facility] [id number] [facility]00 [facility] Out[facility] Clin[facility] 2020-04-11 2020-04-11 [facility] [id number] 15:42:00 15:42:00 [facility] Outpat[facility] Clinics 2020-04-04 2020-04-04 [facility] [id number] [address] 11:00:00 11:00:00 [facility] Clin[facility] 2020-04-02 2020-04-02 [facility] [id number] 16:41:00 16:41:00 [facility] Out[facility] Clin[facility] 2020-03-27 2020-03-27 [facility] [id number] 09:05:00 09:05:00 [facility] Out[facility] Clin[facility] 2020-03-18 2020-03-18 [facility] [id number] 14:30:00 14:30:00 [facility] Out[facility] Clin[facility] 2020-03-04 2020-03-04 [facility] [id number] 15:57:00 15:57:00 [facility] Out[facility] Clin[facility] 2020-03-04 2020-03-04 [facility] [id number] 11:00:00 11:00:00 [facility] Out[facility] Clin[facility] 2020-02-28 2020-02-28 [facility] [id number] [address] 16:56:00 16:56:00 [facility] Out[facility] Clin[facility] 2020-02-25 2020-02-25 [facility] [id number] 18:47:00 18:47:00 [facility] Out[facility] Clin[facility] 2020-02-21 2020-02-21 [facility] [id number] 10:01:00 10:01:00 [facility] Out[facility] Clin[facility] 2020-02-16 2020-02-16 [facility] [id number] 11:00:00 11:00:00 [facility] Out[facility] Clin[facility] 2020-02-14 2020-02-14 [facility] [id number] 18:14:00 18:14:00 [facility] Outpat[facility] Clinics 2020-02-09 2020-02-09 [facility] [id number] [address] 16:33:00 16:33:00 [facility] Clin[facility] 2020-02-01 2020-02-01 [facility] [id number] 09:00:00 09:00:00 [facility] Out[facility] Clin[facility] 2019-12-25 2019-12-25 [facility] [id number] 10:00:00 10:00:00 [facility] Clin[facility] 2019-11-24 2019-11-24 [facility] [id number] 08:25:00 08:25:00 [facility] Out[facility] Clin[facility] 2019-11-15 2019-11-15 [facility] [id number] 10:30:00 10:30:00 [facility] Out[facility] Clinics Results This patient has no known results.
[2020-12-09 18:19] VITALS: O2SAT 100
[2020-12-09] MEDS ORDERED: ACETAMINOPHEN 325 MG TABLET ONE (19:30)
[2020-12-09 20:10] VITALS: BMI 18.3
[2020-12-09] MEDS: FENTANYL CITR 100 MCG/2 ML IV PRN (22:53)
[2020-12-10] MEDS: FENTANYL CITR 100 MCG/2 ML IV PRN (02:30)
[2020-12-10] MEDS: ACETAMINOPHEN 325 MG TABLET PO PRN ×2 (04:12→09:11)
[2020-12-10 08:55] VITALS: BP 151/73; TEMP 97
--- NOTE | 2020-12-12 04:19 | DS ---
Date of Discharge: 12/10/2020 The patient was admitted on 12/09/2020. She was discharged on 12/10/2020 Admission Diagnosis: Peripheral arterial disease. Discharge Diagnosis: Peripheral arterial disease status post right common iliac artery stent. Discharge Medications: Include her home medications plus Plavix 75 mg daily. Discharge Instructions: For her to resume normal activities and to see me in the office in [address] discharge. Diet instruction was a low-fat, low-cholesterol diet, and for her to quit tobacco use . Hospital Course: Ms. Richardson is a 75-year-old woman with history of hypertension, dyslipidemia, to bacco use, peripheral arterial disease, carotid disease status post carotid endarterectomy in the [facility]. Has had claudication, admitted, underwent a right common iliac artery stent. Following that, she developed some right leg pain and mild discoloration. She was placed on heparin overnight and overn ight, she did very well. She had dopplerable pulses. Her right foot was warm. She was pain free. She will be discharged with home medication plus Plavix, and we will see her in the office in about a week. ISATU/JAMILA Voice ID: [id number] Report ID: [id number]
== END 2020-12-10 10:58 | disposition home or self-care (01) ==
LOC: CCL 06:21 → 2ND 18:10
DX: I70.213 Atherosclerosis of native arteries of extremities with intermittent claudication, bilateral legs (principal); I10 Essential (primary) hypertension; E78.5 Hyperlipidemia, unspecified; J44.9 Chronic obstructive pulmonary disease, unspecified; G47.00 Insomnia, unspecified; H40.9 Unspecified glaucoma; H35.30 Unspecified macular degeneration; M51.36 Other intervertebral disc degeneration, lumbar region; I48.0 Paroxysmal atrial fibrillation; I25.10 Atherosclerotic heart disease of native coronary artery without angina pectoris; F17.210 Nicotine dependence, cigarettes, uncomplicated; E78.2 Mixed hyperlipidemia; M15.0 Primary generalized (osteo)arthritis; F41.0 Panic disorder [episodic paroxysmal anxiety]; Z20.822 Contact with and (suspected) exposure to COVID-19
CPT/HCPCS: 0240U; 36200; 36415; 37221; 75630; 80048; 85025; 85610; 85730; 93005; C1725; C1893; G0378; J1644; J2250; J3010; J7030; J7040

== ENCOUNTER 2022-04-07 22:57 | Emergency (ER) | payer OTHER ==
--- OUTSIDE RECORDS SUMMARY | 2022-04-07 23:00 | XMS REPORT | Continuity of Care Document ---
:1945 Author Organization [facility] t Address [address] [place] [address] Care Team Providers Name Role Phone Jessica Baltazar Attending Clinician Unavailable Qasim Kaba Attending Clinician Unavailable Josefina Alfred Attending Clinician Unavailable Libra Eduardo Attending Clinician Unavailable Problems This patient has no known problems. Allergies, Adverse Reactions, Alerts Allergy Allergy Status Severity Reaction(s) Onset Inactive Treating Comm ents Source Name Type Date Date Clinician codeine Adverse Active Itching/"cli Co mmon Reaction mbing the [facility] Medications Ordered Filled Start Stop Current Ordering Indication Dosage Frequency Signature Comments Components Source Medication Medication Date Date Medication? Clinician (SIG) Name Name Cyclobenzap Cyclobenzap 2020-0 2020- No Libra as Common rine HCl rine HCl 6-29 10 Millender directed [facility] 00:00: 00:00 - [facility] 00 :00 [facility] Amitriptyli Amitriptyli Yes Libra 1 tablet Common ne HCl ne HCl Millender at bedtime [facility] Simvastatin Simvastatin Yes Libra 1 tablet Common Millender in the [facility] evening [facility] Duloxetine Duloxetine Yes Libra 1 capsule Common HCl HCl Millender [facility] Clonazepam Clonazepam Yes Libra 1 tablet Common Millender at bedtime [facility] it - [facility] Restasis Restasis Yes Libra 1 drop Comm on Millender into [facility] affected - [facility] eye [facility] Amlodipine Amlodipine Yes Libra 1 tablet Common Besylate Besylate Millender [facility] Omeprazole Omeprazole Yes Libra 1 capsule Common Millender [facility] Metoprolol Metoprolol Yes Libra 1 tablet Common Tartrate Tartrate Millender [facility] Lumigan Lumigan Yes Libra 1 drop Common Millender into [facility] affected - [facility] eye in the [facility] Gabapentin Gabapentin Yes Libra 1 capsule Common Millender as needed Spiri t for pain [facility] Levetiracet Levetiracet Yes Libra 1 tablet Common am am Millender [facility] Combivent Combivent 2020- No Libra 1 puff as Common Respimat Respimat 01-10 Millender needed [facility] 00:00 - [facility] : [facility] Stiolto Stiolto 2020- No Libra 2 puffs Comm on Respimat Respimat -07 Millender S pirit 00:00 - [facility]I :00 [facility] Procedures This patient has no known procedures. Encounters Start End Encounter Admission Attending Care Care Encounter Source Date/Time Date/Time Type Type Clinicians Facility Department ID 2021-10-01 Outpatient Baltazar, Na [facility] [id number] Common 13:15:58 [id number] [facility] 2021-10-01 Outpatient Baltazar, Na [facility] [id number] Common 13:15:25 [id number] [facility] 2021-10-01 Outpatient Baltazar, Na [facility] [id number] Common 13:14:48 [id number] [facility] 2021-10-01 Outpatient Baltazar, Na [facility] [id number] Common 12:59:52 [id number] [facility] 2021-10-01 Outpatient Kaba, [facility] [id number] Common 12:54:48 [facility] [id number] [facility] 2021-10-01 Outpatient Kaba, [facility] ST[facility] [id number] Common 12:50:49 [facility] [id number] [facility] 2021-10-01 Outpatient Kaba, STLMLC ST[facility]C [id number] Common 12:48:26 [facility] [id number] [facility] 2021-10-01 Outpatient Aubrie, STLMLC ST[facility]C [id number] Common 12:42:41 Josefina 13647 [facility] 2021-10-01 Outpatient Aubrie, STLMLC STL[facility]C [id number] Common 12:18:47 Josefina [id number] [facility] 2021-10-01 Outpatient Aubrie, STLMLC ST[facility] [id number] Common 12:09:28 Josefina 29063 [facility] 2021-10-01 Outpatient Aubrie, STLMLC STL[facility]C [id number] Common 12:08:26 Josefina 64708 [facility] 2021-10-01 Outpatient Aubrie, STLMLC STL[facility]C [id number] Common 12:08:02 Josefina [id number] [facility] 2021-10-01 Outpatient Aubrie, STLMLC STL[facility]C [id number] Common 12:04:39 Josefina 26939 [facility] 2021-10-01 Outpatient Aubrie, STLMLC STL[facility]C [id number] Common 12:04:17 Josefina [id number] [facility] 2021-10-01 Outpatient Millender, STLMLC STL[facility]C [id number] 12:01:54 Libra [id number] [facility] 2021-10-01 Outpatient Millender, STLMLC STL[facility]C [id number] Common 11:28:52 Libra [id number] [facility] 2021-10-01 Outpatient Millender, STLMLC STLMLC [id number] Common 11:26:07 Libra [id number] [facility] 2021-10-01 Outpatient Millender, STLMLC STLMLC [id number] 11:24:38 Libra 59926 [facility] 2021-10-01 Outpatient Millender, STLMLC STL[facility]C [id number] Common 11:15:03 Libra [id number] [facility] 2021-10-01 Outpatient Millender, STLMLC STL[facility]C [id number] Common 11:13:14 Libra [id number] [facility] 2021-07-08 2021-07-08 ambulatory [facility] ST[facility] [id number] Common 00:00:00 00:00:00 [facility] 2021-06-26 2021-06-26 Outpatient [facility] [id number] Common 00:00:00 00:00:00 [facility] 2021-06-23 2021-06-23 Outpatient [facility] [id number] Common 00:00:00 00:00:00 [facility] 2021-06-12 2021-06-12 Outpatient [facility] [id number] Common 00:00:00 00:00:00 [facility] 2021-06-10 2021-06-10 Outpatient [facility] [id number] Common 00:00:00 00:00:00 [facility] 2021-06-04 2021-06-04 Outpatient [facility] [id number] Common 00:00:00 00:00:00 [facility] 2021-05-30 2021-05-30 Outpatient [facility] [id number] Common 00:00:00 00:00:00 [facility] 2021-05-02 2021-05-02 Outpatient [facility] [id number] Common 00:00:00 00:00:00 [facility] 2021-02-20 2021-02-20 Outpatient [facility] [id number] Common 00:00:00 00:00:00 [facility] 2021-02-05 2021-02-05 Outpatient [facility] [id number] Common 00:00:00 00:00:00 [facility] 2020-12-25 2020-12-25 Outpatient [facility] [id number] Common 00:00:00 00:00:00 [facility] 2020-12-11 2020-12-11 Outpatient [facility] [id number] Common 00:00:00 00:00:00 [facility] 2020-11-25 2020-11-25 Outpatient [facility] [id number] Common 00:00:00 00:00:00 [facility] 2020-11-08 2020-11-08 Outpatient [facility] [id number] Common 00:00:00 00:00:00 [facility] 2020-11-04 2020-11-04 Outpatient [facility] [id number] Common 00:00:00 00:00:00 [facility] 2020-10-29 2020-10-29 Outpatient [facility] [id number] Common 00:00:00 00:00:00 [facility] 2020-09-30 2020-09-30 Outpatient [facility] ST[facility] [id number] Common 00:00:00 00:00:00 [facility] 2020-09-18 2020-09-18 Outpatient [facility] ST[facility] [id number] Common 00:00:00 00:00:00 [facility] 2020-09-16 2020-09-16 Outpatient [facility] [id number] Common 00:00:00 00:00:00 [facility] 2020-08-13 2020-08-13 Outpatient [facility] ST[facility] [id number] Common 00:00:00 00:00:00 [facility] 2020-08-05 2020-08-05 Outpatient [facility] [id number] Common 00:00:00 00:00:00 [facility] 2020-07-23 2020-07-23 Outpatient [facility] [id number] Common 00:00:00 00:00:00 [facility] 2020-07-18 2020-07-18 Outpatient [facility] ST[facility] [id number] Common 00:00:00 00:00:00 [facility] 2020-07-10 2020-07-10 Outpatient [facility] [id number] Common 00:00:00 00:00:00 [facility] 2020-07-04 2020-07-04 Outpatient [facility] ST[facility]C [id number] Common 00:00:00 00:00:00 [facility] 2020-06-13 2020-06-13 Outpatient [facility] [id number] Common 00:00:00 00:00:00 [facility] 2020-06-12 2020-06-12 Outpatient [facility] ST[facility] [id number] Common 00:00:00 00:00:00 [facility] 2020-06-05 2020-06-05 Outpatient [facility] ST[facility] [id number] Common 00:00:00 00:00:00 [facility] 2020-06-05 2020-06-05 Outpatient [facility] ST[facility] [id number] Common 00:00:00 00:00:00 [facility] 2020-05-21 2020-05-21 Outpatient [facility] ST[facility] [id number] Common 00:00:00 00:00:00 [facility] 2020-04-11 2020-04-11 [id number] Common 15:42:00 15:42:00 [facility] [address] [facility] 2020-04-04 2020-04-04 [facility] [id number] Common 11:00:00 11:00:00 [facility] [address] [facility] 2020-04-02 2020-04-02 [facility] [id number] Common 16:41:00 16:41:00 [facility] [address] [facility] 2020-03-27 2020-03-27 [facility] [id number] Common 09:05:00 09:05:00 [facility] [address] [facility] 2020-03-18 2020-03-18 [facility] [id number] Common 14:30:00 14:30:[address] [facility] 2020-03-04 2020-03-04 [facility] [id number] Common 15:57:00 15:57:[address] [facility] 2020-03-04 2020-03-04 [facility] [id number] Common 11:00:00 11:00:[address] [facility] 2020-02-28 2020-02-28 [facility] [id number] Common 16:56:00 16:56:[address] [facility] 2020-02-25 2020-02-25 [facility] [id number] Common 18:47:00 18:47:[address] [facility] 2020-02-21 2020-02-21 [facility] [id number] Common 10:01:00 10:01:[address] [facility] 2020-02-16 2020-02-16 [facility] [id number] Common 11:00:00 11:00:[address] [facility] 2020-02-14 2020-02-14 [facility] [id number] Common 18:14:00 18:14:[address] [facility] 2020-02-09 2020-02-09 [facility] [id number] Common 16:33:00 16:33:[address] [facility] 2020-02-01 2020-02-01 [facility] [id number] Common 09:00:00 09:00:[address] [facility] 2019-12-25 2019-12-25 [facility] [id number] Common 10:00:00 10:00:00 [facility] [address] [facility] 2019-11-24 2019-11-24 Outpatient Lexi Hines [id number] Common 08:25:00 08:25:00 [facility] Sp[address] [facility] 2019-11-15 2019-11-15 Outpatient Lexi Hines [id number] Common 10:30:00 10:30:00 [facility] Results Test Description Test Time Test Comments Results Result Comments Source SARS-COV2/RT-PCR ([facility]) 2020-01-28 04:54:00 Test Item Value Reference Range Interpretation Comme nts SARS-COV2/RT-PCR (test code = [id number]) Not Detected Not Detected, N egative SARS-COV-2 PERFORMING LAB (test code = [id number][facility] Negative results do not preclude SARS-CoV-2 infection and should not be used as the sole basis for patient management decisions. Negative results must be combined with clinical observations, patient history, and epidemiological information. A false negative result may occur if a specimen is improperly collected, transported or handled.The limit of detection for this assay is 250 copies/mL.This SARS CoV-2 test is a rapid, real-time RT-PCR test intended for the qualitative detection of nucleic acid from SARS-CoV-2 in a nasopharyngeal swab specimen collected from individuals suspected of COVID-19 by their healthcare provider.This test has not been Food and Drug Administration (FDA) cleared or approved and has been authorized by FDA under an Emergency Use Authorization (EUA). This EUA will be effective until the declaration that circumstances exist justifying the authorization of the emergency use of in vitro diagnostic tests for detection and/or diagnosis of COVID-19 is terminated under Section 564(b)(2) of the Act or the EUA is revoked under Section 564(g) of the Act.Fact Sheet for Healthcare Pro viders:https://www.Top10.com.com/Documents/Xpert%20Xpress%20SARS%20CoV-2/Fact%20Sh eets/3023802%87MLOQ-IJD-3%20HEALTHCARE%20PROVIDERS%20FACT%20SHEET.pdfFact Sheet for Healthcare Patients:https://www.Lookout[employer] ([place])/Documents/Xpert%20Xpress%20SARS%20CoV-2/Fact%20Sheets/302-0420%20SARS-COV -2%20PATIENT%20FACT%20SHEET.pdfPerforming Laboratory:[facility] [place] [address]
[2022-04-08 08:46] VITALS: BP 115/63; TEMP 98.4; O2SAT 100
--- NOTE | 2022-04-08 10:41 | ER ---
Nurse's Notes [facility] Name: Shilpa Richardson Age: 76 yrs Sex: Female : 1945 Arrival Date: 04/07/2022 Time: 23:00 Bed 15 Private MD: Diagnosis: Fall on same level, unspecified;Contusion of lower back and pelvis Presentation: 04/07 23:01 Chief complaint: EMS states: pt got up out of bed without her walker and fell onto her sm5 buttocks. Coronavirus screen: Vaccine status: Patient reports being unvaccinated. Ebola Screen: No symptoms or risks identified at this time. Initial Sepsis Screen: Does the patient meet any 2 criteria? No. Patient's initial sepsis screen is negative. Does the patient have a suspected source of infection? No. Patient's initial sepsis screen is negative. Risk Assessment: Do you want to hurt yourself or someone else? Patient reports no desire to harm self or others. Onset of symptoms was April 07, 2022. 23:01 Method Of Arrival: EMS: [facility] 23:01 Acuity: PATRICIA 4 sm5 Triage Assessment: 23:03 General: Appears in no apparent distress. Behavior is cooperative. Pain: Complains of sm5 pain in buttocks. Neuro: Level of Consciousness is awake, alert, obeys commands, Oriented to person, place, time, situation. Cardiovascular: Capillary refill < 3 seconds Patient's skin is warm and dry. Respiratory: Airway is patent Trachea midline Respiratory effort is even, unlabored. Musculoskeletal: Circulation, motion, and sensation intact. Historical: - Allergies: 23:04 adhesive tape; sm5 23:04 Codeine; sm5 23:04 Diphenhydramine; sm5 23:04 Erythromycin; sm5 23:04 PENICILLINS; sm5 23:04 Tape; sm5 - Home Meds: 23:04 amlodipine 5 mg oral tab 1 tab once daily [Active]; Combivent Inhl one puff as needed 4 sm5 times a day [Active]; Lumigan 0.01 % ophthalmic drop twice a day [Active]; meloxicam 7.5 mg oral tab 1 tab once daily [Active]; metoprolol tartrate 50 mg oral tab 1 tab 2 times per day [Active]; omeprazole 20 mg Oral cpDR 1 cap once daily [Active]; simvastatin 20 mg Oral tab 1 tab once daily [Active]; acetaminophen 500 mg Oral cap 1 cap every 12 hours [Active]; Ambien 10 mg Oral tab 1 tab once daily [Active]; clopidogrel 75 mg oral tab 1 tab once daily [Active]; cyclobenzaprine 5 mg Oral tab 1 tab every 12 hours [Active]; duloxetine 60 mg oral CDRS 1 cap twice a day [Active]; gabapentin 300 mg oral cap 1 cap 3 times per day [Active]; Keppra 500 mg Oral tab 1 tab 2 times per day [Active]; levothyroxine 25 mcg cap 1 cap once daily [Active]; lorazepam 0.5 mg Oral tab 1 tab daily [Active]; simvastatin 20 mg Oral tab 1 tab once daily [Active]; tramadol 50 mg Oral tab 1 tab twice a day [Active]; - PMHx: 23:04 ADD/ADHD; Alcoholism; Hypertension; Depression; COPD; Chronic pain; Carotid blockage; sm5 Anxiety; Epilepsy; Gastroesophageal reflux disease; Emphysema; - Immunization history:: Client reports having NOT received the Covid vaccine. - Social history:: Smoking status: Patient/guardian denies using tobacco, the patient reports quitting approximately 40 years ago. - Family history:: not pertinent. - Hospitalizations: : No recent hospitalization is reported. Screenin:04 Abuse screen: Denies threats or abuse. Denies injuries from another. Nutritional 5 screening: No deficits noted. Tuberculosis screening: No symptoms or risk factors identified. Fall Risk Fall in past 12 months (25 points). No secondary diagnosis (0 pts). No IV (0 pts). Ambulatory Aid- Crutches/Cane/Walker (15 pts). Gait- Normal/Bed Rest/Wheelchair (0 pts) Mental Status- Oriented to own ability (0 pts). Total Solorzano Fall Scale indicates Low Risk Score (25-44 pts). Fall prevention measures have been instituted. Side Rails Up X 2 Placed close to Nursing Station Frequent Obs/Assesments occuring As available Patient and Family Educated on Fall Prevention Program and strategies. Assessment: 23:30 Reassessment: see triage assessment. 5 04/08 00:58 Reassessment: No changes from previously documented assessment. Patient and/or family 5 updated on plan of care and expected duration. Pain level reassessed. Patient is alert, oriented x 3, equal unlabored respirations, skin warm/dry/pink. Vital Signs: 04/07 23:01 BP 115 / 63; Pulse 61; Resp 17; Temp 98.4(O); Pulse Ox 100% on 3 lpm NC; Weight 42.64 sm5 kg; Pain 4/10; ED Course: 23:00 Patient arrived in ED. rn 23:00 Evaristo Zendejas MD is Attending Physician. rn 23:01 Munira Hickman RN is Primary Nurse. sm5 23:03 Triage completed. sm5 23:04 Arm band placed on right wrist. sm5 23:15 Patient has correct armband on for positive identification. Bed in low position. Call sm5 light in reach. Side rails up X2. Pulse ox on. NIBP on. 23:40 Lumbar Spine 3 Views In Process Unspecified. EDMS 23:40 Pelvis In Process Unspecified. EDMS 08 00:58 No provider procedures requiring assistance completed. Patient did not have IV access sm5 during this emergency room visit. Administered Medications: No medications were administered Medication: 04/07 23:15 VIS not applicable for this client. sm5 Outcome: 04/08 00:41 Discharge ordered by . rn 00:58 Discharged to care home. Transfer form completed. sm5 00:58 Condition: stable 00:58 Discharge instructions given to patient, Instructed on discharge instructions, follow up and referral plans. Demonstrated understanding of instructions, follow-up care. 01:10 Patient left the ED. sm5 Signatures: Dispatcher [employer] EDDE Evaristo Zendejas MD MD rn Mazur, Sarah, RN RN sm5 Corrections: (The following items were deleted from the chart) 04/07 23:14 23:04 Home Meds: alprazolam 0.5 mg Oral tab 1 tab as needed; sm5 sm5
--- NOTE | 2022-04-08 10:41 | EDPHYS ---
Physician Documentation [facility] Name: Shilpa Richardson Age: 76 yrs Sex: Female : 1945 Arrival Date: 04/07/2022 Time: 23:00 Bed 15 Private MD: ED Physician Evaristo Zendejas HPI: 04/07 23:01 This 76 yrs old Female presents to ER via Unassigned with complaints of fall, low back rn pain. 23:01 The patient presents with pain that is acute. The symptoms are located in the low back. rn Onset: The symptoms/episode began/occurred just prior to arrival. The pain does not radiate. Associated signs and symptoms: Pertinent negatives: abdominal pain, chest pain, dysuria, fever, hematuria, incontinence, nausea, numbness, tingling, urinary retention, vomiting, weakness. Modifying factors: The patient symptoms are alleviated by remaining still. Severity of symptoms: At their worst the symptoms were mild, in the emergency department the symptoms are unchanged. The patient has experienced similar episodes in the past. The patient has not recently seen a physician. EMS and patient report fall from standing, was trying to walk without walker, landed on buttocks, no head injury, no direct back trauma, reports only pain to lower back, is mild, denies hip or ext injury/pain. Historical: - Allergies: 23:04 adhesive tape; sm5 23:04 Codeine; sm5 23:04 Diphenhydramine; sm5 23:04 Erythromycin; sm5 23:04 PENICILLINS; sm5 23:04 Tape; sm5 - Home Meds: 23:04 amlodipine 5 mg oral tab 1 tab once daily [Active]; Combivent Inhl one puff as needed 4 sm5 times a day [Active]; Lumigan 0.01 % ophthalmic drop twice a day [Active]; meloxicam 7.5 mg oral tab 1 tab once daily [Active]; metoprolol tartrate 50 mg oral tab 1 tab 2 times per day [Active]; omeprazole 20 mg Oral cpDR 1 cap once daily [Active]; simvastatin 20 mg Oral tab 1 tab once daily [Active]; acetaminophen 500 mg Oral cap 1 cap every 12 hours [Active]; Ambien 10 mg Oral tab 1 tab once daily [Active]; clopidogrel 75 mg oral tab 1 tab once daily [Active]; cyclobenzaprine 5 mg Oral tab 1 tab every 12 hours [Active]; duloxetine 60 mg oral CDRS 1 cap twice a day [Active]; gabapentin 300 mg oral cap 1 cap 3 times per day [Active]; Keppra 500 mg Oral tab 1 tab 2 times per day [Active]; levothyroxine 25 mcg cap 1 cap once daily [Active]; lorazepam 0.5 mg Oral tab 1 tab daily [Active]; simvastatin 20 mg Oral tab 1 tab once daily [Active]; tramadol 50 mg Oral tab 1 tab twice a day [Active]; - PMHx: 23:04 ADD/ADHD; Alcoholism; Hypertension; Depression; COPD; Chronic pain; Carotid blockage; sm5 Anxiety; Epilepsy; Gastroesophageal reflux disease; Emphysema; - Immunization history:: Client reports having NOT received the Covid vaccine. - Social history:: Smoking status: Patient/guardian denies using tobacco, the patient reports quitting approximately 40 years ago. - Family history:: not pertinent. - Hospitalizations: : No recent hospitalization is reported. ROS: 23:01 Constitutional: Negative for fever, chills, and weight loss, Eyes: Negative for injury, rn pain, redness, and discharge, Neck: Negative for injury, pain, and swelling, Cardiovascular: Negative for chest pain, palpitations, and edema, Respiratory: Negative for shortness of breath, cough, wheezing, and pleuritic chest pain, Abdomen/GI: Negative for abdominal pain, nausea, vomiting, diarrhea, and constipation, Back: + lower back pain MS/Extremity: Negative for injury and deformity, Neuro: Negative for headache, weakness, numbness, tingling, and seizure. Exam: 23:01 Constitutional: This is a well developed, well nourished patient who is awake, alert, rn and in no acute distress, legs crossed and appears comfortable Head/Face: Normocephalic, atraumatic. Eyes: Periorbital areas with no swelling, redness, or edema. Neck: No cervical tenderness Cardiovascular: Regular rate and rhythm. No pulse deficits. Respiratory: No increased work of breathing, no retractions or nasal flaring. Abdomen/GI: Soft, non-tender Back: Mild lower lumbar tenderness, no stepoff MS/ Extremity: Pulses equal, no cyanosis. Neurovascular intact. Full, normal range of motion. Equal circumference. FROM bilateral hips and no pain with rotation. Neuro: Awake and alert, GCS 15 Vital Signs: 23:01 BP 115 / 63; Pulse 61; Resp 17; Temp 98.4(O); Pulse Ox 100% on 3 lpm NC; Weight 42.64 sm5 kg; Pain 4/10; MDM: 23:00 Patient medically screened. rn 04/08 00:39 Differential diagnosis: arthritis, chronic back pain, Fracture Osteoarthritis sprain, rn vertebral fracture. Data reviewed: vital signs, nurses notes, radiologic studies, plain films, and as a result, I will discharge patient. Counseling: I had a detailed discussion with the patient and/or guardian regarding: the historical points, exam findings, and any diagnostic results supporting the discharge/admit diagnosis, radiology results, the need for outpatient follow up, to return to the emergency department if symptoms worsen or persist or if there are any questions or concerns that arise at home. Special discussion: I discussed with the patient/guardian in detail that at this point there is no indication for admission to the hospital. It is understood, however, that if the symptoms persist or worsen the patient needs to return immediately for re-evaluation. ED course: NO acute findings on xray, minimal pain per patient, pt declines pain medication. Will dc home. . 04/07 23:04 Order name: Lumbar Spine 3 Views EDMS 04/07 23:04 Order name: Pelvis EDMS Administered Medications: No medications were administered Disposition Summary: 04/08/22 00:41 Discharge Ordered Location: Home rn Problem: new rn Symptoms: have improved rn Condition: Stable rn Diagnosis - Fall on same level, unspecified rn - Contusion of lower back and pelvis rn Followup: rn - With: Private Physician - When: As needed - Reason: Recheck today's complaints, Re-evaluation by your physician Discharge Instructions: - Discharge Summary Sheet rn - Acute Back Pain, Adult rn - Contusion rn - Fall Prevention in the Home, Adult rn Forms: - Medication Reconciliation Form rn - Thank You Letter rn - Antibiotic biology internship - Prescription Opioid Use rn - SBAR form mw2 Signatures: Dispatcher [employer] EDMS Evaristo Zendejas MD MD rn Mazur, Sarah, RN ANJUM sm5 Corrections: (The following items were deleted from the chart) 04/07 23:14 23:04 Home Meds: alprazolam 0.5 mg Oral tab 1 tab as needed; sm5 sm5
--- NOTE | 2022-04-08 12:00 | RAD REPORT ---
EXAM DESCRIPTION: RAD - Lumbar Spine 3 Views - 04/07/2022 11:38 pm CLINICAL HISTORY: 76 years Female pain TECHNIQUE: Three views of the lumbar spine were submitted. COMPARISON: No prior exams provided for comparison. FINDINGS: There is pronounced levoconvex curvature of the lumbar spine. There is no acute lumbar fra cture or spondylolisthesis. No aggressive osseous lesion. Mild multilevel degenerative disc disease. Stent in the right common iliac artery. Diffuse atherosclerosis. Cholecystectomy clips. Nonspecific b owel gas pattern. 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 Electronically signed by: Stefani Bundy MD 04/08/2022 12:23 AM CDT Due to temporary technical issues with the PACS/Fluency reporting system, reports are being signed by the in house radiologists without review as a courtesy to insure prompt reporting. The interpreting radiologist is fully responsible for the content of the report.
--- NOTE | 2022-04-08 12:06 | RAD REPORT ---
EXAM DESCRIPTION: RAD - Pelvis - 04/07/2022 11:38 pm CLINICAL HISTORY: 76 years Female fall injury TECHNIQUE: One view of the pelvis is compared to the prior CT scan dated 04/12/2020 COMPARISON: No prior exams provided for comparison. FINDINGS: There is no acute pelvic fracture or dislocation. Levoconvex curvature of the lumbar spine . The hip joints appear normal. Mild degenerative changes at the sacroiliac joints and pubic symphysi s. Atherosclerotic calcifications of a stent in the right common iliac artery. IMPRESSION: No acute pelvic injury visualized. Electronically signed by: Stefani Bundy MD 04/08/2022 12:24 AM CDT Due to temporary technical issues with the PACS/Fluency reporting system, reports are being signed by the in house radiologists without review as a courtesy to insure prompt reporting. The interpreting radiologist is fully responsible for the content of the report.
== END 2022-04-08 01:10 | disposition home or self-care (01) ==
LOC: ER 22:57
DX: S30.0XXA Contusion of lower back and pelvis, initial encounter (principal); W18.30XA Fall on same level, unspecified, initial encounter; F10.20 Alcohol dependence, uncomplicated; I10 Essential (primary) hypertension; Z88.0 Allergy status to penicillin; Z88.3 Allergy status to other anti-infective agents; Z88.5 Allergy status to narcotic agent; Z88.8 Allergy status to other drugs, medicaments and biological substances; Z91.048 Other nonmedicinal substance allergy status
CPT/HCPCS: 72100; 72170; 99283

== ENCOUNTER 2022-04-28 00:13 | Emergency (ER) | payer OTHER ==
--- OUTSIDE RECORDS SUMMARY | 2022-04-28 00:17 | XMS REPORT | Continuity of Care Document ---
:1945 Author Organization [facility] t Address [address] [place] [address] Care Team Providers Name Role Phone Jessica [...] Co mmon Reaction mbing the Spiri t regan"[facility] Medications Ordered Filled Start Stop Current Ordering Indication Dosage Frequency Signature Comments Components Source Medication Medication Date Date Medication? Clinician (SIG) Name Name Cyclobenzap Cyclobenzap 2020-0 2020- No Libra as Common rine HCl rine HCl 6-29 1009 Millender directed Spirit 00:00: 00:00 - [facility] 00 :00 [facility] Amitriptyli Amitriptyli Yes Libra 1 tablet Common ne HCl ne HCl Millender at bedtime [facility] Simvastatin Simvastatin Yes Libra 1 tablet Common Millender in the Spirit evening [facility] Duloxetine Duloxetine Yes Libra 1 capsule Common HCl HCl Millender [facility] Clonazepam Clonazepam Yes Libra 1 tablet Common Millender at bedtime Spir it - [facility] Restasis Restasis Yes Libra 1 drop Comm on Millender into Spirit affected - [facility] eye [facility] Amlodipine Amlodipine Yes Libra 1 tablet Common Besylate Besylate Millender Sp [facility] Omeprazole Omeprazole Yes Libra 1 capsule Common Millender [facility] Metoprolol Metoprolol Yes Libra 1 tablet Common Tartrate Tartrate Millender Sp bel[facility] Lumigan Lumigan Yes Libra 1 drop Common Millender into Spirit affected - [facility] eye in the [facility] Gabapentin Gabapentin Yes Libra 1 capsule Common Millender as needed Spiri t for pain - [facility] Levetiracet Levetiracet Yes Libra 1 tablet Common am am Millender [facility] Combivent Combivent 2020- No Libra 1 puff as Common Respimat Respimat - Millender needed Spirit 00:00 - CHI :00 [facility] Stiolto Stiolto 2020- No Libra 2 puffs Comm on Respimat Respimat 07 Millender S pirit 00:00 - CHI :00 [facility] Procedures This patient has no known procedures. Encounters Start End Encounter Admission Attending Care Care Encounter Source Date/Time Date/Time Type Type Clinicians Facility Department ID 2021-10-01 [facility] [id number] Common 13:15:58 60177 [facility] 2021-10-01 Outpatient Baltazar, [facility] [id number] Common 13:15:25 02379 [facility] 2021-10-01 Outpatient Baltazar, [facility] [id number] Common 13:14:48 31315 [facility] 2021-10-01 Outpatient Baltazar, [facility] [id number] Common 12:59:52 62287 [facility] 2021-10-01 Outpatient Kaba, [facility] [id number] Common 12:54:48 [facility] 75993 [facility] 2021-10-01 Outpatient Kaba, [facility] [id number] Common 12:50:49 [facility] 87528 [facility] 2021-10-01 Outpatient Kaba, [facility] [id number] Common 12:48:26 [facility] 55903 [facility] 2021-10-01 Outpatient Aubrie, [facility] [id number] Common 12:42:41 Josefina 51150 [facility] 2021-10-01 Outpatient Aubrie, [facility] [id number] Common 12:18:47 Josefina 82228 [facility] 2021-10-01 Outpatient Aubrie, [facility] [id number] Common 12:09:28 Josefina 13621 [facility] 2021-10-01 Outpatient Aubrie, [facility] [id number] Common 12:08:26 Josefina 37031 [facility] 2021-10-01 Outpatient Aubrie, [facility] [id number] Common 12:08:02 Josefina 05671 [facility] 2021-10-01 Outpatient Aubrie, [facility] [id number] Common 12:04:39 Josefina 69258 [facility] 2021-10-01 Outpatient Aubrie, [facility] [id number] Common 12:04:17 Josefina 86686 [facility] 2021-10-01 Outpatient Millender, [facility] [id number] 12:01:54 Libra 17862 [facility] 2021-10-01 Outpatient Millender, [facility] [id number] Common 11:28:52 Libra 87545 [facility] 2021-10-01 Outpatient Millender, [facility] [id number] 11:26:07 Libra 08032 [facility] 2021-10-01 Outpatient Millender, [facility] [id number] 11:24:38 Libra 25505 [facility] 2021-10-01 Outpatient Millender, [facility] [id number] Common 11:15:03 Libra 40365 [facility] 2021-10-01 Outpatient Millender, [facility] [id number] Common 11:13:14 Libra 93250 [facility] 2021-07-08 2021-07-08 ambulatory [facility] [id number] Common 00:00:00 00:00:00 [facility] 2021-06-26 2021-06-26 Outpatient [facility] [id number] Common 00:00:00 00:00:00 [facility] 2021-06-23 2021-06-23 Outpatient [facility] [id number] Common 00:00:00 00:00:00 [facility] 2021-06-12 2021-06-12 Outpatient [facility] [id number] Common 00:00:00 00:00:00 [facility] 2021-06-10 2021-06-10 Outpatient [facility] [id number] Common 00:00:00 00:00:00 [facility] 2021-06-04 2021-06-04 Outpatient [facility] [id number] Common 00:00:00 00:00:00 [facility] 2021-05-30 2021-05-30 Outpatient [facility] [id number] Common 00:00:00 00:00:00 [facility] 2021-05-02 2021-05-02 Outpatient [facility] [id number] Common 00:00:00 00:00:00 [facility] 2021-02-20 2021-02-20 Outpatient [facility] [id number] Common 00:00:00 00:00:00 [facility] 2021-02-05 2021-02-05 Outpatient [facility] [id number] Common 00:00:00 00:00:00 [facility] 2020-12-25 2020-12-25 Outpatient [facility] [id number] Common 00:00:00 00:00:00 [facility] 2020-12-11 2020-12-11 Outpatient [facility] [id number] Common 00:00:00 00:00:00 [facility] 2020-11-25 2020-11-25 Outpatient [facility] [id number] Common 00:00:00 00:00:00 [facility] 2020-11-08 2020-11-08 Outpatient [facility] [id number] Common 00:00:00 00:00:00 [facility] 2020-11-04 2020-11-04 Outpatient [facility] [id number] Common 00:00:00 00:00:00 [facility] 2020-10-29 2020-10-29 Outpatient [facility] [id number] Common 00:00:00 00:00:00 [facility] 2020-09-30 2020-09-30 Outpatient [facility] [id number] Common 00:00:00 00:00:00 [facility] 2020-09-18 2020-09-18 Outpatient [facility] [id number] Common 00:00:00 00:00:00 [facility] 2020-09-16 2020-09-16 Outpatient [facility] [id number] Common 00:00:00 00:00:00 [facility] 2020-08-13 2020-08-13 Outpatient [facility] [id number] Common 00:00:00 00:00:00 [facility] 2020-08-05 2020-08-05 Outpatient [facility] [id number] Common 00:00:00 00:00:00 [facility] 2020-07-23 2020-07-23 Outpatient [facility] [id number] Common 00:00:00 00:00:00 [facility] 2020-07-18 2020-07-18 Outpatient [facility] [id number] Common 00:00:00 00:00:00 [facility] 2020-07-10 2020-07-10 Outpatient [facility] [id number] Common 00:00:00 00:00:00 [facility] 2020-07-04 2020-07-04 Outpatient [facility] [id number] Common 00:00:00 00:00:00 [facility] 2020-06-13 2020-06-13 Outpatient [facility] [id number] Common 00:00:00 00:00:00 [facility] 2020-06-12 2020-06-12 Outpatient [facility] [id number] Common 00:00:00 00:00:00 [facility] 2020-06-05 2020-06-05 Outpatient [facility] [id number] Common 00:00:00 00:00:00 [facility] 2020-06-05 2020-06-05 Outpatient [facility] [id number] Common 00:00:00 00:00:00 [facility] 2020-05-21 2020-05-21 Outpatient [facility] [id number] Common 00:00:00 00:00:00 [facility] 2020-04-11 2020-04-11 [id number] Common 15:42:00 15:42:00 [facility] 2020-04-04 2020-04-04 [facility] [id number] Common 11:00:00 11:00:00 [facility] [address] [facility] 2020-04-02 2020-04-02 [facility] [id number] Common 16:41:00 16:41:00 [facility] [address] [facility] 2020-03-27 2020-03-27 [facility] [id number] Common 09:05:00 09:05:00 [facility] [address] [facility] 2020-03-18 2020-03-18 [facility] [id number] Common 14:30:00 14:30:[address] [facility] 2020-03-04 2020-03-04 [facility] [id number] Common 15:57:00 15:57:[address] [facility] 2020-03-04 2020-03-04 [facility] [id number] Common 11:00:00 11:00:[address] [facility] 2020-02-28 2020-02-28 [facility] [id number] Common 16:56:00 16:56:[address] [facility] 2020-02-25 2020-02-25 [facility] [id number] Common 18:47:00 18:47:[address] [facility] 2020-02-21 2020-02-21 [facility] [id number] Common 10:01:00 10:01:[address] [facility] 2020-02-16 2020-02-16 [facility] [id number] Common 11:00:00 11:00:[address] [facility] 2020-02-14 2020-02-14 [facility] [id number] Common 18:14:00 18:14:[address] [facility] 2020-02-09 2020-02-09 [facility] [id number] Common 16:33:00 16:33:[address] [facility] 2020-02-01 2020-02-01 [facility] [id number] Common 09:00:00 09:00:[address] [facility] 2019-12-25 2019-12-25 [facility] [id number] Common 10:00:00 10:00:[address] Spir it [facility] 2019-11-24 2019-11-24 Outpatient Lexi Hines [id number] Common 08:25:00 08:25:00 [facility] Sp[address] Road [facility] 2019-11-15 2019-11-15 Outpatient Lexi Hines [id number] Common 10:30:00 10:30:00 [facility] Results Test Description Test Time Test Comments Results Result Comments Source SARS-COV2/RT-PCR ([facility]) 2020-01-28 04:54:00 Test Item Value Reference Range Interpretation Comme nts SARS-COV2/RT-PCR (test code = [id number]) Not Detected Not Detected, N egative SARS-COV-2 PERFORMING LAB (test code = [facility] [id number]) Negative results do not preclude SARS-CoV-2 infection [...] of the Act.Fact Sheet for Healthcare Pro viders:https://www.[employer].Hordspot/Documents/Xpert%20Xpress%20SARS%20CoV-2/Fact%20Sh eets/302-0069%15BDFH-TJD-9%20HEALTHCARE%20PROVIDERS%20FACT%20SHEET.pdfFact Sheet for Healthcare Patients:https://www.[employer].H[employer]spot/Documents/Xpert%20Xpress%20SARS%20CoV-2/Fact%20Sheets/302-8876%20SARS-COV -2%20PATIENT%20FACT%20SHEET.pdfPerforming Laboratory:[facility] [place] [address]
[2022-04-28] MEDS ORDERED: ACETAMINOPHEN 500 MG TAB ONE (00:47)
[2022-04-28] MEDS ORDERED: LIDOCAINE 1% W/EPI 1:100,000 MDV 50 ML VIAL ONE (02:04)
--- NOTE | 2022-04-28 02:49 | EDPHYS ---
Physician Documentation [facility] Name: Shilpa Richardson Age: 76 yrs Sex: Female : 1945 Arrival Date: 04/28/2022 Time: 00:18 Bed 20 Private MD: ED Physician Hector Gray HPI: 04/28 00:35 This 76 yrs old Female presents to ER via EMS with complaints of Fall Injury. cp 00:35 The patient or guardian reports a laceration, irregular. The complaints affect the cp forehead. Context of injury: The problem was sustained at a senior living or assisted living facility, resulted from reported fall. Onset: The symptoms/episode began/occurred this morning. Associated signs and symptoms: Pertinent positives: headache, left elbow injury, Pertinent negatives: incontinence, seizure, vomiting. 00:35 Patient reports she is unable to recall events leading up to injury. cp Historical: - Allergies: 00:28 adhesive tape; lp1 00:28 Codeine; lp1 00:28 Diphenhydramine; lp1 00:28 Erythromycin; lp1 00:28 PENICILLINS; lp1 00:28 Tape; lp1 - Home Meds: 00:28 acetaminophen 500 mg Oral cap 1 cap every 12 hours [Active]; Ambien 10 mg Oral tab 1 lp1 tab nightly [Active]; amlodipine 5 mg tab 1 tab once daily [Active]; clopidogrel 75 mg Oral tab 1 tab once daily [Active]; Combivent Inhl daily [Active]; cyclobenzaprine 5 mg Oral tab 1 tab every 12 hours [Active]; cyclosporine 0.05 % ophthalmic (eye) dpet 1 drop every 12 hours [Active]; duloxetine 60 mg Oral CDRS 1 cap twice a day [Active]; gabapentin 600 mg oral tab twice a day [Active]; ipratropium-albuterol 0.5 mg-3 mg(2.5 mg base)/3 mL Inhl nebu 3 mL 4 times per day [Active]; Keppra 500 mg Oral tab 1 tab 2 times per day [Active]; levothyroxine 25 mcg cap 1 cap once daily [Active]; lorazepam 0.5 mg Oral tab 1 tab daily [Active]; Lumigan 0.01 % ophthalmic drop nightly [Active]; meloxicam 7.5 mg Oral tab 1 tab once daily [Active]; metoprolol tartrate 50 mg Oral tab 1 tab 2 times per day [Active]; omeprazole 20 mg Oral cpDR 1 cap once daily [Active]; simvastatin 20 mg Oral tab 1 tab nightly [Active]; tramadol 50 mg Oral tab 1 tab twice a day [Active]; 00:39 Trelegy Ellipta 100-62.5-25 mcg inhalation dsdv 1 puff once daily [Active]; Ubrelvy 100 lp1 mg oral tab 1 tab daily [Active]; Zofran 4 mg Oral tab every 8 hours [Active]; - PMHx: 00:28 ADD/ADHD; Alcoholism; Anxiety; Carotid blockage; Chronic pain; COPD; Depression; lp1 Emphysema; epilepsy; Gastroesophageal reflux disease; Hypertension; - Immunization history:: Adult Immunizations up to date. - Social history:: Smoking status: Patient denies any tobacco usage or history of. - Immunization history: Last tetanus immunization: unknown. ROS: 00:40 Constitutional: Negative for fever. cp 00:40 Cardiovascular: Negative for chest pain. cp 00:40 Respiratory: Negative for cough, shortness of breath. 00:40 Abdomen/GI: Negative for abdominal pain, vomiting, diarrhea, constipation. 00:40 MS/extremity: Negative for injury or acute deformity, paresthesias. 00:40 Neuro: Positive for headache, Negative for altered mental status. 00:40 All other systems are negative. Exam: 00:45 Constitutional: The patient appears in no acute distress, alert, awake, cp non-diaphoretic, non-toxic, well developed, frail. 00:45 Head/face: Noted is a laceration(s), that is deep, of the forehead, swelling, that is cp mild, of the forehead, tenderness, that is moderate, of the forehead. 00:45 Eyes: Periorbital structures: appear normal, Pupils: equal, round, and reactive to light and accomodation, Extraocular movements: intact throughout, Conjunctiva: normal, no exudate, no injection, Lids and lashes: appear normal, bilaterally. 00:45 ENT: External ear(s): are unremarkable, Nose: is normal, Mouth: Lips: moist, Oral mucosa: pink and intact, moist, Posterior pharynx: Airway: no evidence of obstruction, patent. 00:45 Neck: C-spine: C-collar placed in ED, vertebral tenderness, that is mild, appreciated at C5 and C6, crepitus, is not appreciated. 00:45 Chest/axilla: Inspection: normal, Palpation: is normal, no crepitus, no tenderness. 00:45 Cardiovascular: Rate: normal. 00:45 Respiratory: the patient does not display signs of respiratory distress, Respirations: normal, no use of accessory muscles, no retractions, labored breathing, is not present, Breath sounds: are clear throughout, no decreased breath sounds, no stridor, no wheezing. 00:45 Abdomen/GI: Inspection: abdomen appears normal, Palpation: abdomen is soft and non-tender, in all quadrants. 00:45 Back: pain, is absent, ROM is normal. 00:45 Musculoskeletal/extremity: Extremities: noted in the left elbow: contusion, tenderness, There is no evidence of decreased ROM, deformity, ROM: full active range of motion, in the left elbow, Pulses: noted to be 2+ in the left radial artery. 00:45 Neuro: Orientation: no acute changes, per EMS, Mentation: no acute changes, per EMS. Vital Signs: 00:23 BP 161 / 68; Pulse 79; Resp 18; Temp 98.5(O); Pulse Ox 100% on 2 lpm NC; Weight 40.28 lp1 kg (R); 01:53 BP 140 / 71; Pulse 78; Resp 14; Pulse Ox 98% on R/A; ll3 03:38 BP 150 / 75; Pulse 73; Resp 12; Pulse Ox 100% on R/A; ll3 Raymond Coma Score: 00:30 Eye Response: spontaneous(4). Verbal Response: oriented(5). Motor Response: obeys ll3 commands(6). Total: 15. 00:35 Eye Response: spontaneous(4). Verbal Response: oriented(5). Motor Response: obeys cp commands(6). Total: 15. Trauma Score (Adult): 00:30 Eye Response: spontaneous(1); Verbal Response: oriented(1); Motor Response: obeys ll3 commands(2); Systolic BP: > 89 mm Hg(4); Respiratory Rate: 10 to 29 per min(4); Raymond Score: 15; Trauma Score: 12 Laceration: 02:50 Wound Repair of 3cm ( 1.2in ) subcutaneous laceration to forehead. Irregularly shaped.. cp Distal neuro/vascular/tendon intact. Anesthesia: Wound infiltrated with 5 mls of 1% lidocaine w/ Epi. Wound prep: Simple cleansing by nurse by me. Skin closed with 6 6-0 Prolene using interrupted sutures and sterile technique. Dressed with 4x4's. Patient tolerated well. MDM: 00:29 Patient medically screened. cp 02:48 Data reviewed: vital signs, nurses notes, radiologic studies, CT scan, plain films. cp 02:48 Test interpretation: by ED physician or midlevel provider: plain radiologic studies. cp Counseling: I had a detailed discussion with the patient and/or guardian regarding: the historical points, exam findings, and any diagnostic results supporting the discharge/admit diagnosis, radiology results, the need for outpatient follow up, a family practitioner, to return to the emergency department if symptoms worsen or persist or if there are any questions or concerns that arise at home. 04/28 00:29 Order name: CT Head C Spine cp 04/28 00:29 Order name: XRAY Elbow LEFT 3 view cp 04/28 01:44 Order name: Wound Care: please clean wounds; Complete Time: 02:38 cp Administered Medications: 00:43 Drug: Tylenol 500 mg Route: PO; ll3 03:50 Follow up: Response: No adverse reaction; Pain is decreased ll3 Disposition Summary: 04/28/22 02:48 Discharge Ordered Location: Home cp Problem: new cp Symptoms: have improved cp Condition: Stable cp Diagnosis - Laceration without foreign body of unspecified part of head, initial encounter cp - Contusion of left elbow cp Followup: cp - With: Private Physician - When: 1 week - Reason: Staple/Suture removal Discharge Instructions: - Discharge Summary Sheet cp - Head Injury, Adult cp - Laceration Care, Adult cp - Elbow Contusion cp Forms: - Medication Reconciliation Form cp - Thank You Letter cp - Antibiotic Education cp - Prescription Opioid Use cp - SBAR form mw2 Signatures: Dispatcher [employer] Tanisha Valadez, RN RN lp1 Hector Gomez PA PA cp Janna Galeas, RN RN ll3
--- NOTE | 2022-04-28 02:49 | ER ---
Nurse's Notes [facility] Name: Shilpa Richardson Age: 76 yrs Sex: Female : 1945 Arrival Date: 04/28/2022 Time: 00:18 Bed 20 Private MD: Diagnosis: Laceration without foreign body of unspecified part of head, initial encounter;Contusion of left elbow Presentation: 04/28 00:22 Acuity: PATRICIA 2 lp1 00:23 Chief complaint: EMS states: Called for patient with unwitnessed fall, shelter lp1 staff reports patient took scheduled Ambien earlier tonight; laceration to forehead; patient is on blood thinners. Coronavirus screen: At this time, the client does not indicate any symptoms associated with coronavirus-19. Ebola Screen: No symptoms or risks identified at this time. Initial Sepsis Screen: Does the patient meet any 2 criteria? No. Patient's initial sepsis screen is negative. Does the patient have a suspected source of infection? No. Patient's initial sepsis screen is negative. Risk Assessment: Do you want to hurt yourself or someone else? Patient reports no desire to harm self or others. Onset of symptoms was April 28, 2022. 00:23 Method Of Arrival: EMS: [facility] lp1 00:26 Care prior to arrival: IV initiated. 20 GA, in the right. Transition of care: patient lp1 was received from another setting of care (long-term care facility), [facility]. 03:37 Care prior to arrival:. Mechanism of Injury: Fall from standing position. Trauma event ll3 details: Injury occurred in the [facility]. Trauma Activation: Stat Physician: ED Physician; Name: ; Notified At: ; Arrived At: Physician: General Surgeon; Name: ; Notified At: ; Arrived At: Physician: Radiology; Name: ; Notified At: ; Arrived At: Physician: Respiratory; Name: ; Notified At: ; Arrived At: Physician: Lab; Name: ; Notified At: ; Arrived At: Historical: - Allergies: 00:28 adhesive tape; lp1 00:28 Codeine; lp1 00:28 Diphenhydramine; lp1 00:28 Erythromycin; lp1 00:28 PENICILLINS; lp1 00:28 Tape; lp1 - Home Meds: 00:28 acetaminophen 500 mg Oral cap 1 cap every 12 hours [Active]; Ambien 10 mg Oral tab 1 lp1 tab nightly [Active]; amlodipine 5 mg tab 1 tab once daily [Active]; clopidogrel 75 mg Oral tab 1 tab once daily [Active]; Combivent Inhl daily [Active]; cyclobenzaprine 5 mg Oral tab 1 tab every 12 hours [Active]; cyclosporine 0.05 % ophthalmic (eye) dpet 1 drop every 12 hours [Active]; duloxetine 60 mg Oral CDRS 1 cap twice a day [Active]; gabapentin 600 mg oral tab twice a day [Active]; ipratropium-albuterol 0.5 mg-3 mg(2.5 mg base)/3 mL Inhl nebu 3 mL 4 times per day [Active]; Keppra 500 mg Oral tab 1 tab 2 times per day [Active]; levothyroxine 25 mcg cap 1 cap once daily [Active]; lorazepam 0.5 mg Oral tab 1 tab daily [Active]; Lumigan 0.01 % ophthalmic drop nightly [Active]; meloxicam 7.5 mg Oral tab 1 tab once daily [Active]; metoprolol tartrate 50 mg Oral tab 1 tab 2 times per day [Active]; omeprazole 20 mg Oral cpDR 1 cap once daily [Active]; simvastatin 20 mg Oral tab 1 tab nightly [Active]; tramadol 50 mg Oral tab 1 tab twice a day [Active]; 00:39 Trelegy Ellipta 100-62.5-25 mcg inhalation dsdv 1 puff once daily [Active]; Ubrelvy 100 lp1 mg oral tab 1 tab daily [Active]; Zofran 4 mg Oral tab every 8 hours [Active]; - PMHx: 00:28 ADD/ADHD; Alcoholism; Anxiety; Carotid blockage; Chronic pain; COPD; Depression; lp1 Emphysema; epilepsy; Gastroesophageal reflux disease; Hypertension; - Immunization history:: Adult Immunizations up to date. - Social history:: Smoking status: Patient denies any tobacco usage or history of. - Immunization history: Last tetanus immunization: unknown. Screenin:06 Abuse screen: Denies threats or abuse. Nutritional screening: No deficits noted. ll3 Tuberculosis screening: No symptoms or risk factors identified. Fall Risk Fall in past 12 months (25 points). Secondary diagnosis (15 points) seizures, IV access (20 points). Ambulatory Aid- None/Bed Rest/Nurse Assist (0 pts). Gait- Weak (10 pts.). Mental Status- Oriented to own ability (0 pts). Total Solorzano Fall Scale indicates High Risk Score (45 or more points). Fall prevention measures have been instituted. Side Rails Up X 2 Placed Close to Nursing Station Frequent Obs/Assessments Occuring. Primary Survey: 00:30 NO uncontrolled hemorrhage observed. A: The client is awake and alert. The airway is ll3 patent. Breathing/Chest: Spontaneous respiratory effort, equal unlabored respirations, breath sounds clear bilaterally, regular pattern, symmetrical chest rise and fall. Circulation: No external hemorrhage present. Regular and strong central pulse, skin warm/dry/normal color. Disability Pupils are equal, round, reactive to light and accommodation. Exposure/Environment: There is no evidence of uncontrolled external bleeding. Obvious injury(ies) are noted at this time: Laceration to forehead. 03:36 Reassessment Alertness and Airway: Awake and alert. The airway is patent. Breathing: ll3 Spontaneous respiratory effort, equal unlabored respirations, breath sounds clear bilaterally, regular pattern with symmetrical chest rise and fall. Circulation: No external hemorrhage noted. Regular and strong central pulse, skin warm/dry/normal color. Disability: Pupils Pupils are equal, round, reactive to light and accomodation. Alert. Assessment: 00:30 General: Appears in no apparent distress. uncomfortable, Behavior is calm, cooperative. ll3 Pain: Complains of pain in palmar aspect of proximal phalanx of right thumb, forehead Pain currently is 4 out of 10 on a pain scale. Neuro: Level of Consciousness is awake, alert, obeys commands, Oriented to person, place, time, situation. Cardiovascular: Patient's skin is warm and dry. Respiratory: Respiratory effort is even, unlabored, Respiratory pattern is regular, symmetrical. Derm: Wound noted forehead Wound is Laceration after fall. Musculoskeletal: Circulation, motion, and sensation intact. Reports pain in palmar aspect of proximal phalanx of right thumb. 01:53 Reassessment: No changes from previously documented assessment. Patient and/or family ll3 updated on plan of care and expected duration. Pain level reassessed. Patient is alert, oriented x 3, equal unlabored respirations, skin warm/dry/pink. 03:38 Reassessment: No changes from previously documented assessment. Patient and/or family ll3 updated on plan of care and expected duration. Pain level reassessed. Patient is alert, oriented x 3, equal unlabored respirations, skin warm/dry/pink. Vital Signs: 00:23 BP 161 / 68; Pulse 79; Resp 18; Temp 98.5(O); Pulse Ox 100% on 2 lpm NC; Weight 40.28 lp1 kg (R); 01:53 BP 140 / 71; Pulse 78; Resp 14; Pulse Ox 98% on R/A; ll3 03:38 BP 150 / 75; Pulse 73; Resp 12; Pulse Ox 100% on R/A; ll3 Raymond Coma Score: 00:30 Eye Response: spontaneous(4). Verbal Response: oriented(5). Motor Response: obeys ll3 commands(6). Total: 15. 00:35 Eye Response: spontaneous(4). Verbal Response: oriented(5). Motor Response: obeys cp commands(6). Total: 15. Trauma Score (Adult): 00:30 Eye Response: spontaneous(1); Verbal Response: oriented(1); Motor Response: obeys ll3 commands(2); Systolic BP: > 89 mm Hg(4); Respiratory Rate: 10 to 29 per min(4); Clinton Score: 15; Trauma Score: 12 ED Course: 00:18 Patient arrived in ED. mw2 00:22 Hector Gomez PA is PHCP. cp 00:22 Hector Gray MD is Attending Physician. cp 00:23 Triage completed. lp1 00:23 Arm band placed on. lp1 01:00 CT Head C Spine In Process Unspecified. EDMS 01:04 Janna Galeas, ANJUM is Primary Nurse. ll3 01:06 XRAY Elbow LEFT 3 view In Process Unspecified. EDMS 01:06 Patient has correct armband on for positive identification. Bed in low position. Call ll3 light in reach. Side rails up X2. 01:06 Maintain EMS IV. Dressing intact. Good blood return noted. Site clean \T\ dry. Gauge \T\ ll 3 site: 20 RFA. 03:37 No provider procedures requiring assistance completed. IV discontinued, intact, ll3 bleeding controlled, No redness/swelling at site. Pressure dressing applied. 03:37 Oxygen administration via nasal cannula \T\ 2L/min. ll3 03:38 Thermoregulation: warm blanket given to patient. ll3 Administered Medications: 00:43 Drug: Tylenol 500 mg Route: PO; ll3 03:50 Follow up: Response: No adverse reaction; Pain is decreased ll3 Medication: 03:38 VIS not applicable for this client. ll3 Intake: 00:30 PO: 30ml; Total: 30ml. ll3 Outcome: 02:48 Discharge ordered by . diane 03:38 Patient's length of stay was not longer than 2 hours. ll3 03:48 Discharged to intermediate. Report called to Receiving RN ll3 03:48 Condition: stable 03:48 Discharge instructions given to patient, EMS, Instructed on discharge instructions, follow up and referral plans. Demonstrated understanding of instructions, follow-up care. 03:50 Patient left the ED. ll3 Signatures: Dispatcher [employer] EDTanisha Navarro RN RN lp1 Hector Gomez PA PA cp [place], MyKena mw2 Janna Galeas RN RN ll3 Corrections: (The following items were deleted from the chart) 01:08 01:06 Maintain EMS IV. Dressing intact. Good blood return noted. Site clean \T\ dry. ll3 ll3
[2022-04-28 05:59] VITALS: TEMP 98.5
[2022-04-28 06:03] VITALS: BP 150/75; O2SAT 100
--- NOTE | 2022-04-28 14:47 | RAD REPORT ---
EXAM DESCRIPTION: RAD - Elbow Left 3 View - 04/28/2022 1:04 am CLINICAL HISTORY: Pain COMPARISON: None. TECHNIQUE: Left Elbow 3 Views FINDINGS: No fracture or dislocation. No significant sclerotic/lytic bone lesion. Osteopenia or diffuse decreased bone density. Joint spaces unremarkable. Soft tissues unremarkable. IMPRESSION: Osteopenia. Electronically signed by: Vel Kirkland MD 04/28/2022 1:32 AM CDT Due to temporary technical issues with the PACS/Fluency reporting system, reports are being signed by the in house radiologists without review as a courtesy to insure prompt reporting. The interpreting radiologist is fully responsible for the content of the report
--- NOTE | 2022-04-28 14:49 | RAD REPORT ---
EXAM DESCRIPTION: CT - Head C Spine Mpr Wo Con - 04/28/2022 6:44 am CLINICAL HISTORY: The patient is 76 years old and is Female; head injury TECHNIQUE: Axial computed tomography images of the head/brain and cervical spine without intravenous contrast. Sagittal and coronal reformatted images were created and reviewed. This CT exam was pe rformed using one or more of the following dose reduction techniques: automated exposure control, a djustment of the mA and/or kV according to patient size, and/or use of iterative reconstruction techn ique. COMPARISON: CT of the head October 16, 2020, CT April 08, 2020 FINDINGS: BRAIN: Encephalomalacia within the right frontal lobe is present. There is diffuse cereb ral atrophy present, consistent with this patient's age. There is patchy hypoattenuation of the soham p white matter which is non-specific, but most likely owing to chronic small vessel ischemic change i n a patient of this age group. 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 No intra cranial hemorrhage, mass effect, midline shift is seen. There are no extra-axial fluid collections. VENTRICLES: Unremarkable. No ventriculomegaly. SKULL: The bones are diffusely osteopenic with associated cystic change. The appearance is simila r to prior exam. SINUSES: Unremarkable as visualized. No acute sinusitis. MASTOID AIR CELLS: A right mastoid effusion is present. VERTEBRAE: The vertebral body heights and alignment are grossly maintained. No acute fracture. DISCS/SPINAL CANAL/NEURAL FORAMINA: There is multi-level intervertebral disc height loss. There a re disc-osteophyte complexes at several levels, with associated mild spinal canal narrowing. There is also facet hypertrophy and uncovertebral joint osteophytosis, with associated multilevel neural fora katlyn narrowing. SOFT TISSUES: The soft tissues are normal. THYROID: A large 2.7 cm nodule within the right lobe of the thyroid is present. LUNG APICES: Emphysematous changes the lung apices is noted. IMPRESSION: 1. No acute intracranial findings. 2. Moderate spondylosis of the cervical spine without acute findings. 3. Right thyroid nodule. Recommend thyroid ultrasound follow-up. Electronically signed by: Kassi Genao MD 04/28/2022 1:17 AM CDT Due to temporary technical issues with the PACS/Fluency reporting system, reports are being signed by the in house radiologists without review as a courtesy to insure prompt reporting. The interpreting radiologist is fully responsible for the content of the report
== END 2022-04-28 03:50 | disposition home or self-care (01) ==
LOC: ER 00:13
PROC: 0JQ10ZZ Repair Face Subcutaneous Tissue and Fascia, Open Approach (ICD-10-PCS; principal; 2022-04-28)
DX: S01.81XA Laceration without foreign body of other part of head, initial encounter (principal); S50.02XA Contusion of left elbow, initial encounter; F10.20 Alcohol dependence, uncomplicated; J44.9 Chronic obstructive pulmonary disease, unspecified; F32.A Depression, unspecified; I10 Essential (primary) hypertension; G40.909 Epilepsy, unspecified, not intractable, without status epilepticus; Z88.0 Allergy status to penicillin; Z88.5 Allergy status to narcotic agent; Z88.8 Allergy status to other drugs, medicaments and biological substances; Z91.048 Other nonmedicinal substance allergy status
CPT/HCPCS: 70450; 72125

== ENCOUNTER 2023-02-08 12:19 | Emergency (ER) | payer OTHER ==
--- OUTSIDE RECORDS SUMMARY | 2023-02-08 12:25 | XMS REPORT | Continuity of Care Document ---
:1945 Author Organization [facility] t Address [address] [facility] [address] [facility] [address] [place] [address] Care Team Providers Name Role Phone Jessica Baltazar Attending Clinician Unavailable Qasim Kaba Attending Clinician Unavailable Josefina Alfred Attending Clinician Unavailable Libra Eduardo Attending Clinician Unavailable Payers Payer Name Policy Type Policy Number Effective Date Expiration Date S nan [employer] C1 [id number] Common S pirit ing Medicare - [facility] [employer] C1 [id number] Common S pirit ing Medicare - [facility] [employer] C1 [id number] Common S pirit ing Medicare - [facility] [employer] C1 [id number] Common S pirit ing Medicare - [facility] [employer] C1 [id number] Common S pirit ing Medicare - [facility] [employer] C1 [id number] Common S pirit ing Medicare - [facility] [employer] C1 [id number] Common S pirit ing Medicare - [facility] Replace [facility] [employer] C1 [id number] Common S pirit ing Medicare [facility] [employer] C1 [id number] Common S pirit ing Medicare - [facility] Replace [facility] [employer] C1 [id number] Common S pirit ing Medicare - [facility] [employer] C1 [id number] Common S pirit ing Medicare - [facility] [employer] C1 [id number] Common S pirit ing Medicare - [facility] Replace [facility] [employer] C1 [id number] Common S pirit ing Medicare - [facility] Replace [facility] [employer] C1 [id number] Common S pirit ing Medicare - [facility] Replace [facility] [employer] C1 [id number] Common S pirit ing Medicare - [facility] Replace [facility] [employer] C1 [id number] Common S pirit ing Medicare - [facility] [employer] C1 [id number] Common S pirit ing Medicare - [facility] [employer] C1 [id number] Common S pirit ing Medicare - [facility] [employer] C1 [id number] Common S pirit ing Medicare - [facility] [employer] C1 [id number] Common S pirit ing Medicare - [facility] [employer] C1 [id number] Common S pirit ing Medicare - [facility] [employer] C1 [id number] Common S pirit ing Medicare - [facility] [employer] C1 [id number] Common S pirit ing Medicare - [facility] Replace [facility] [employer] C1 [id number] Common S pirit ing Medicare - [facility] Replace [facility] Problems Condition Condition Condition Status Onset Resolution Last Treating Co mments Source Name Details Category Date Date Treatment Clinician Date Chronic CKD Problem Common kidney (chronic Spirit disease kidney - [facility] disease) [facility] [id number] Chronic Problem Commo n atrial Spirit fibrillati - [facility] on [facility] Essential Essential Problem Com mon hypertensi (primary) Spi rit on hypertensi - [facility] on [facility] [id number] Anemia in Problem Com mon chronic Spirit kidney - [facility] disease [facility] [id number] Dark Problem Common stools Spirit - [facility] 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 - [facility] arteries of [facility] extremitie [facility] [id number] History of Problem Co mmon carotid Spirit endarterec - [facility] minda [facility] [id number] Chronic Problem Common obstructiv [facility] Center type Gastroesop Gastroesop Problem C ommon hageal hageal Spirit reflux reflux - [facility], [facility] Medica l not Center specified [id number] 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 [facility] Seizure Seizures Problem Common Spirit - [facility] Memory Memory Problem Common problem problem [facility] Cataract Cataract Problem Commo n Spirit [facility] Chronic 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, - [facility]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 3A stage [facility]a [facility] [id number] Closed Problem Common displaced [facility] fracture - [facility] trochanter [facility] of right Medical femur, Center initial encounter [id number] Lumbago Problem Commo n with Spirit sciatica, - [facility] unspecifie [facility] [id number] Other Problem Common chronic Spirit pain - [facility] [id number] Dry mouth Problem Comm on Spirit CHI [facility] [id number] Hyperlipid Problem Com mon emia, Spirit unspecifie - CHI d hyperlipid [facility] emia type [facility] [id number] Status Problem Common post fall Spirit - CHI [facility] [id number] Depression Problem Co mmon with Spirit anxiety - [facility] [id number] On Problem Common supplement Spirit al oxygen - CHI by nasal [facility] [id number] Hypoxia Problem Commo n Spirit [facility] Benign Benign Problem Common hypertensi hypertensi Sp bela ve heart ve heart - CHI disease disease [facility] 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 - [facility]I of macula [facility] Glaucoma Glaucoma Problem Commo n Spirit [facility] Allergies, Adverse Reactions, Alerts Allergy Allergy Status Severity Reaction(s) Onset Inactive Treating Comm ents Source Name Type Date Date Clinician Isra Dhaliwal Active Itching/"cli Co mmon mbing the [facility] Social History Social Habit Start Date Stop Date Quantity Comments Source History of Tobacco Use Co mmon [facility] Sex Assigned At Com mon [facility] Smoking Status Start Date Stop Date Source Former Smoker 2022-06-30 00:00:00 2022-06-30 00:00:00 Common S [facility] Medications Ordered Filled Start Stop Current Ordering Indication Dosage Frequency Signature Comments Components Source Medication Medication Date Date Medication? Clinician (SIG) Name Name CeleBREX CeleBREX 2020- No 1{capsu BID CeleBREX 100 MG 100 MG 02-20 le_with 100 MG 00:00: 00:00 _food} 00 :00 CeleBREX CeleBREX 2020- No 1{capsu BID CeleBREX 100 MG 100 MG 02-20 le_with 100 MG 00:00: 00:00 _food} 00 :00 Clopidogrel Clopidogrel No 1{table QD Clopidogre Bisulfate Bisulfate 4-07 t} l 75 MG 75 MG 00:00: Bisulfate 00 75 MG Clopidogrel Clopidogrel 0 No 1{table QD Clopidogre Bisulfate Bisulfate 4-07 t} l 75 MG 75 MG 00:00: Bisulfate 00 75 MG Clopidogrel Clopidogrel No 1{table QD Clopidogre Bisulfate Bisulfate 4-07 t} l 75 MG 75 MG 00:00: Bisulfate 00 75 MG Pro Comfort Pro Comfort 0 No TID Pro Tens Unit - Tens Unit - 09-16 Comfort 00:00: Tens Unit 00 - Pro Comfort Pro Comfort 2020-0 No TID Pro Tens Unit - Tens Unit - 09-16 Comfort 00:00: Tens Unit 00 - Pro Comfort Pro Comfort 2020-0 No TID Pro Tens Unit - Tens Unit - 09-16 Comfort 00:00: Tens Unit 00 - Pro Comfort Pro Comfort 2020-0 No TID Pro Tens Unit - Tens Unit - 09-16 Comfort 00:00: Tens Unit 00 - Pro Comfort Pro Comfort 2020-0 No TID Pro Tens Unit - Tens Unit - 1-11 Comfort 00:00: Tens Unit 00 - Pro Comfort Pro Comfort 2020-0 No TID Pro Tens Unit - Tens Unit - 1-11 Comfort 00:00: Tens Unit 00 - Pro Comfort Pro Comfort 2020-0 No TID Pro Tens Unit - Tens Unit - 1-11 Comfort 00:00: Tens Unit 00 - Pro Comfort Pro Comfort 2020-0 No TID Pro Tens Unit - Tens Unit - 1-11 Comfort 00:00: Tens Unit 00 - Pro Comfort Pro Comfort 2020-0 No TID Pro Tens Unit - Tens Unit - 1-11 Comfort 00:00: Tens Unit 00 - Pro Comfort Pro Comfort 2020-0 No TID Pro Tens Unit - Tens Unit - 1-11 Comfort 00:00: Tens Unit 00 - Pro Comfort Pro Comfort 2020-0 No TID Pro Tens Unit - Tens Unit - 1-11 Comfort 00:00: Tens Unit 00 - Pro Comfort Pro Comfort 2020-0 No TID Pro Tens Unit - Tens Unit - 1-11 Comfort 00:00: Tens Unit 00 - Pro Comfort Pro Comfort 2020-0 No TID Pro Tens Unit - Tens Unit - 1-11 Comfort 00:00: Tens Unit 00 - Pro Comfort Pro Comfort 2020-0 No TID Pro Tens Unit - Tens Unit - 1-11 Comfort 00:00: Tens Unit 00 - Pro Comfort Pro Comfort 2020-0 No TID Pro Tens Unit - Tens Unit - 1-11 Comfort 00:00: Tens Unit 00 - Pro Comfort Pro Comfort 2020-0 No TID Pro Tens Unit - Tens Unit - 1-11 Comfort 00:00: Tens Unit 00 - Pro Comfort Pro Comfort 2020-0 No TID Pro Tens Unit - Tens Unit - 1-11 Comfort 00:00: Tens Unit 00 - Pro Comfort Pro Comfort 2020-0 No TID Pro Tens Unit - Tens Unit - 1-11 Comfort 00:00: Tens Unit 00 - Pro Comfort Pro Comfort 2020-0 No TID Pro Tens Unit - Tens Unit - 1-11 Comfort 00:00: Tens Unit 00 - Pro Comfort Pro Comfort 2020-0 No TID Pro Tens Unit - Tens Unit - 1-11 Comfort 00:00: Tens Unit 00 - Pro Comfort Pro Comfort 2020-0 No TID Pro Tens Unit - Tens Unit - 1-11 Comfort 00:00: Tens Unit 00 - Cyclobenzap Cyclobenzap 2020-0 2020- No Libra as Common rine HCl rine HCl 03-04 Millender directed Spirit 00:00: 00:00 - CHI 00 :00 [facility] Amitriptyli Amitriptyli Yes Libra 1 tablet Common ne HCl ne HCl Millender at bedtime [facility] Simvastatin Simvastatin Yes Libra 1 tablet Common Millender in the [facility] evening [facility] Duloxetine Duloxetine Yes Libra 1 capsule Common HCl HCl Millender [facility] Clonazepam Clonazepam Yes Libra 1 tablet Common Millender at bedtime Spir it [facility] Restasis Restasis Yes Libra 1 drop Comm on Millender into [facility] affected - CHI eye [facility] Amlodipine Amlodipine Yes Libra 1 tablet Common Besylate Besylate Millender [facility] Omeprazole Omeprazole Yes Libra 1 capsule Common Millender [facility] Metoprolol Metoprolol Yes Libra 1 tablet Common Tartrate Tartrate Millender Sp [facility] Lumigan Lumigan Yes Libra 1 drop Common Millender into [facility] affected - [facility] eye in the [facility] Gabapentin Gabapentin Yes Libra 1 capsule Common Millender as needed Spiri t for [facility] Levetiracet Levetiracet Yes Libra 1 tablet Common am am Millender [facility] Omeprazole Omeprazole No 1{capsu Omeprazole 20 MG 20 MG le} 20 MG Trelegy Trelegy No 1{puff} QD Trelegy Ellipta Ellipta Ellipta 100-62.5-25 100-62.5-25 100-62.5-2 MCG/INH MCG/INH 5 MCG/INH Lumigan Lumigan No 1{drop_ QD Lumigan 0.01 % 0.01 % into_af 0.01 % fected_ eye_in_ the_eve [place]} Combivent Combivent No 1{puff} Combivent Respimat Respimat Respimat 20MCG /100 20MCG /100 20MCG /100 MCG MCG MCG Metoprolol Metoprolol No 1{table BID Metoprolol Tartrate 50 Tartrate 50 t} Tartrate MG MG 50 MG Simvastatin Simvastatin No 1{table QD Simvastati 20 MG 20 MG t_in_th n 20 MG e_eveni ng} Duloxetine Duloxetine No 1{capsu BID Duloxetine HCl 20 MG HCl 20 MG le} HCl 20 MG Amitriptyli Amitriptyli No 1{table QD Amitriptyl ne HCl 50 ne HCl 50 t_at_be ine HCl 50 MG MG dtime} MG Clonazepam Clonazepam No 1{table Clonazepam 0.5 MG 0.5 MG t_at_be 0.5 MG dtime} Gabapentin Gabapentin No 2{ml} QD Gabapentin 300 MG/6ML 300 MG/6ML 300 MG/6ML Amlodipine Amlodipine No 1{table QD Amlodipine Besylate 5 Besylate 5 t} Besylate 5 MG MG MG Restasis Restasis No 1{drop_ BID Restasis 0.05 % 0.05 % into_af 0.05 % fected_ eye} Cyclobenzap Cyclobenzap No 1{table QD Cyclobenza rine HCl 5 rine HCl 5 t_at_be julián HCl MG MG dtime_a 5 MG s_neede d} Omeprazole Omeprazole No 1{capsu Omeprazole 20 MG 20 MG le} 20 MG Trelegy Trelegy No 1{puff} QD Trelegy Ellipta Ellipta Ellipta 100-62.5-25 100-62.5-25 100-62.5-2 MCG/INH MCG/INH 5 MCG/INH Lumigan Lumigan No 1{drop_ QD Lumigan 0.01 % 0.01 % into_af 0.01 % fected_ eye_in_ the_eve [place]} Combivent Combivent No 1{puff} Combivent Respimat Respimat Respimat 20MCG /100 20MCG /100 20MCG /100 MCG MCG MCG Metoprolol Metoprolol No 1{table BID Metoprolol Tartrate 50 Tartrate 50 t} Tartrate MG MG 50 MG Simvastatin Simvastatin No 1{table QD Simvastati 20 MG 20 MG t_in_th n 20 MG e_eveni ng} Duloxetine Duloxetine No 1{capsu BID Duloxetine HCl 20 MG HCl 20 MG le} HCl 20 MG Amitriptyli Amitriptyli No 1{table QD Amitriptyl ne HCl 50 ne HCl 50 t_at_be ine HCl 50 MG MG dtime} MG Clonazepam Clonazepam No 1{table Clonazepam 0.5 MG 0.5 MG t_at_be 0.5 MG dtime} Gabapentin Gabapentin No 2{ml} QD Gabapentin 300 MG/6ML 300 MG/6ML 300 MG/6ML Amlodipine Amlodipine No 1{table QD Amlodipine Besylate 5 Besylate 5 t} Besylate 5 MG MG MG Restasis Restasis No 1{drop_ BID Restasis 0.05 % 0.05 % into_af 0.05 % fected_ eye} Cyclobenzap Cyclobenzap No 1{table QD Cyclobenza rine HCl 5 rine HCl 5 t_at_be julián HCl MG MG dtime_a 5 MG s_neede d} Gabapentin Gabapentin No 2{ml} QD Gabapentin 300 MG/6ML 300 MG/6ML 300 MG/6ML Restasis Restasis No 1{drop_ BID Restasis 0.05 % 0.05 % into_af 0.05 % fected_ eye} Metoprolol Metoprolol No 1{table BID Metoprolol Tartrate 50 Tartrate 50 t} Tartrate MG MG 50 MG Cyclobenzap Cyclobenzap No 1{table QD Cyclobenza rine HCl 5 rine HCl 5 t_at_be julián HCl MG MG dtime_a 5 MG s_neede d} Amlodipine Amlodipine No 1{table QD Amlodipine Besylate 5 Besylate 5 t} Besylate 5 MG MG MG Duloxetine Duloxetine No 1{capsu BID Duloxetine HCl 20 MG HCl 20 MG le} HCl 20 MG Acetaminoph Acetaminoph No 1{table BID Acetaminop en 500 MG en 500 MG t_as_ne hen 500 MG eded} Lumigan Lumigan No 1{drop_ QD Lumigan 0.01 % 0.01 % into_af 0.01 % fected_ eye_in_ the_eve [place]} Amitriptyli Amitriptyli No 1{table QD Amitriptyl ne HCl 50 ne HCl 50 t_at_be ine HCl 50 MG MG dtime} MG Trelegy Trelegy No 1{puff} QD Trelegy Ellipta Ellipta Ellipta 100-62.5-25 100-62.5-25 100-62.5-2 MCG/INH MCG/INH 5 MCG/INH Clonazepam Clonazepam No 1{table Clonazepam 0.5 MG 0.5 MG t_at_be 0.5 MG dtime} Simvastatin Simvastatin No 1{table QD Simvastati 20 MG 20 MG t_in_th n 20 MG e_eveni ng} Combivent Combivent No 1{puff} Combivent Respimat Respimat Respimat 20MCG /100 20MCG /100 20MCG /100 MCG MCG MCG Omeprazole Omeprazole No 1{capsu Omeprazole 20 MG 20 MG le} 20 MG Gabapentin Gabapentin No 2{ml} QD Gabapentin 300 MG/6ML 300 MG/6ML 300 MG/6ML Restasis Restasis No 1{drop_ BID Restasis 0.05 % 0.05 % into_af 0.05 % fected_ eye} Metoprolol Metoprolol No 1{table BID Metoprolol Tartrate 50 Tartrate 50 t} Tartrate MG MG 50 MG Cyclobenzap Cyclobenzap No 1{table QD Cyclobenza rine HCl 5 rine HCl 5 t_at_be julián HCl MG MG dtime_a 5 MG s_neede d} Amlodipine Amlodipine No 1{table QD Amlodipine Besylate 5 Besylate 5 t} Besylate 5 MG MG MG Duloxetine Duloxetine No 1{capsu BID Duloxetine HCl 20 MG HCl 20 MG le} HCl 20 MG Acetaminoph Acetaminoph No 1{table BID Acetaminop en 500 MG en 500 MG t_as_ne hen 500 MG eded} Lumigan Lumigan No 1{drop_ QD Lumigan 0.01 % 0.01 % into_af 0.01 % fected_ eye_in_ the_eve [place]} Amitriptyli Amitriptyli No 1{table QD Amitriptyl ne HCl 50 ne HCl 50 t_at_be ine HCl 50 MG MG dtime} MG Trelegy Trelegy No 1{puff} QD Trelegy Ellipta Ellipta Ellipta 100-62.5-25 100-62.5-25 100-62.5-2 MCG/INH MCG/INH 5 MCG/INH Clonazepam Clonazepam No 1{table Clonazepam 0.5 MG 0.5 MG t_at_be 0.5 MG dtime} Simvastatin Simvastatin No 1{table QD Simvastati 20 MG 20 MG t_in_th n 20 MG e_eveni ng} Combivent Combivent No 1{puff} Combivent Respimat Respimat Respimat 20MCG /100 20MCG /100 20MCG /100 MCG MCG MCG Omeprazole Omeprazole No 1{capsu Omeprazole 20 MG 20 MG le} 20 MG Omeprazole Omeprazole No 1{capsu Omeprazole 20 MG 20 MG le} 20 MG Cyclobenzap Cyclobenzap No 1{table QD Cyclobenza rine HCl 5 rine HCl 5 t_at_be julián HCl MG MG dtime_a 5 MG s_neede d} Gabapentin Gabapentin No 2{ml} QD Gabapentin 300 MG/6ML 300 MG/6ML 300 MG/6ML Simvastatin Simvastatin No 1{table QD Simvastati 20 MG 20 MG t_in_th n 20 MG e_eveni ng} Amitriptyli Amitriptyli No 1{table QD Amitriptyl ne HCl 50 ne HCl 50 t_at_be ine HCl 50 MG MG dtime} MG Duloxetine Duloxetine No 1{capsu BID Duloxetine HCl 20 MG HCl 20 MG le} HCl 20 MG Acetaminoph Acetaminoph No 1{table BID Acetaminop en 500 MG en 500 MG t_as_ne hen 500 MG eded} Combivent Combivent No 1{puff} Combivent Respimat Respimat Respimat 20MCG /100 20MCG /100 20MCG /100 MCG MCG MCG Trelegy Trelegy No 1{puff} QD Trelegy Ellipta Ellipta Ellipta 100-62.5-25 100-62.5-25 100-62.5-2 MCG/INH MCG/INH 5 MCG/INH Lumigan Lumigan No 1{drop_ QD Lumigan 0.01 % 0.01 % into_af 0.01 % fected_ eye_in_ the_eve [place]} Gabapentin Gabapentin No 2{ml} Gabapentin 250 MG/5ML 250 MG/5ML 250 MG/5ML Levetiracet Levetiracet No 1{table BID Levetirace am 500 MG am 500 MG t} liang 500 MG Metoprolol Metoprolol No 1{table BID Metoprolol Tartrate 50 Tartrate 50 t} Tartrate MG MG 50 MG Amlodipine Amlodipine No 1{table QD Amlodipine Besylate 5 Besylate 5 t} Besylate 5 MG MG MG Restasis Restasis No 1{drop_ BID Restasis 0.05 % 0.05 % into_af 0.05 % fected_ eye} Clonazepam Clonazepam No 1{table Clonazepam 0.5 MG 0.5 MG t_at_be 0.5 MG dtime} Stiolto Stiolto No 2{puffs QD Stiolto Respimat Respimat } Respimat 2.5mcg/2.5m 2.5mcg/2.5m 2.5mcg/2.5 cg cg mcg Omeprazole Omeprazole No 1{capsu Omeprazole 20 MG 20 MG le} 20 MG Cyclobenzap Cyclobenzap No 1{table QD Cyclobenza rine HCl 5 rine HCl 5 t_at_be julián HCl MG MG dtime_a 5 MG s_neede d} Gabapentin Gabapentin No 2{ml} QD Gabapentin 300 MG/6ML 300 MG/6ML 300 MG/6ML Simvastatin Simvastatin No 1{table QD Simvastati 20 MG 20 MG t_in_th n 20 MG e_eveni ng} Amitriptyli Amitriptyli No 1{table QD Amitriptyl ne HCl 50 ne HCl 50 t_at_be ine HCl 50 MG MG dtime} MG Duloxetine Duloxetine No 1{capsu BID Duloxetine HCl 20 MG HCl 20 MG le} HCl 20 MG Acetaminoph Acetaminoph No 1{table BID Acetaminop en 500 MG en 500 MG t_as_ne hen 500 MG eded} Combivent Combivent No 1{puff} Combivent Respimat Respimat Respimat 20MCG /100 20MCG /100 20MCG /100 MCG MCG MCG Trelegy Trelegy No 1{puff} QD Trelegy Ellipta Ellipta Ellipta 100-62.5-25 100-62.5-25 100-62.5-2 MCG/INH MCG/INH 5 MCG/INH Lumigan Lumigan No 1{drop_ QD Lumigan 0.01 % 0.01 % into_af 0.01 % fected_ eye_in_ the_eve [place]} Gabapentin Gabapentin No 2{ml} Gabapentin 250 MG/5ML 250 MG/5ML 250 MG/5ML Levetiracet Levetiracet No 1{table BID Levetirace am 500 MG am 500 MG t} liang 500 MG Metoprolol Metoprolol No 1{table BID Metoprolol Tartrate 50 Tartrate 50 t} Tartrate MG MG 50 MG Amlodipine Amlodipine No 1{table QD Amlodipine Besylate 5 Besylate 5 t} Besylate 5 MG MG MG Restasis Restasis No 1{drop_ BID Restasis 0.05 % 0.05 % into_af 0.05 % fected_ eye} Clonazepam Clonazepam No 1{table Clonazepam 0.5 MG 0.5 MG t_at_be 0.5 MG dtime} Stiolto Stiolto No 2{puffs QD Stiolto Respimat Respimat } Respimat 2.5mcg/2.5m 2.5mcg/2.5m 2.5mcg/2.5 cg cg mcg Omeprazole Omeprazole No 1{capsu Omeprazole 20 MG 20 MG le} 20 MG Cyclobenzap Cyclobenzap No 1{table QD Cyclobenza rine HCl 5 rine HCl 5 t_at_be julián HCl MG MG dtime_a 5 MG s_neede d} Gabapentin Gabapentin No 2{ml} QD Gabapentin 300 MG/6ML 300 MG/6ML 300 MG/6ML Simvastatin Simvastatin No 1{table QD Simvastati 20 MG 20 MG t_in_th n 20 MG e_eveni ng} Amitriptyli Amitriptyli No 1{table QD Amitriptyl ne HCl 50 ne HCl 50 t_at_be ine HCl 50 MG MG dtime} MG Duloxetine Duloxetine No 1{capsu BID Duloxetine HCl 20 MG HCl 20 MG le} HCl 20 MG Acetaminoph Acetaminoph No 1{table BID Acetaminop en 500 MG en 500 MG t_as_ne hen 500 MG eded} Combivent Combivent No 1{puff} Combivent Respimat Respimat Respimat 20MCG /100 20MCG /100 20MCG /100 MCG MCG MCG Trelegy Trelegy No 1{puff} QD Trelegy Ellipta Ellipta Ellipta 100-62.5-25 100-62.5-25 100-62.5-2 MCG/INH MCG/INH 5 MCG/INH Lumigan Lumigan No 1{drop_ QD Lumigan 0.01 % 0.01 % into_af 0.01 % fected_ eye_in_ the_eve [place]} Gabapentin Gabapentin No 2{ml} Gabapentin 250 MG/5ML 250 MG/5ML 250 MG/5ML Levetiracet Levetiracet No 1{table BID Levetirace am 500 MG am 500 MG t} liang 500 MG Metoprolol Metoprolol No 1{table BID Metoprolol Tartrate 50 Tartrate 50 t} Tartrate MG MG 50 MG Amlodipine Amlodipine No 1{table QD Amlodipine Besylate 5 Besylate 5 t} Besylate 5 MG MG MG Restasis Restasis No 1{drop_ BID Restasis 0.05 % 0.05 % into_af 0.05 % fected_ eye} Clonazepam Clonazepam No 1{table Clonazepam 0.5 MG 0.5 MG t_at_be 0.5 MG dtime} Stiolto Stiolto No 2{puffs QD Stiolto Respimat Respimat } Respimat 2.5mcg/2.5m 2.5mcg/2.5m 2.5mcg/2.5 cg cg mcg Omeprazole Omeprazole No 1{capsu Omeprazole 20 MG 20 MG le} 20 MG Cyclobenzap Cyclobenzap No 1{table QD Cyclobenza rine HCl 5 rine HCl 5 t_at_be julián HCl MG MG dtime_a 5 MG s_neede d} Gabapentin Gabapentin No 2{ml} QD Gabapentin 300 MG/6ML 300 MG/6ML 300 MG/6ML Gabapentin Gabapentin No 2{ml} Gabapentin 250 MG/5ML 250 MG/5ML 250 MG/5ML Amitriptyli Amitriptyli No 1{table QD Amitriptyl ne HCl 50 ne HCl 50 t_at_be ine HCl 50 MG MG dtime} MG Levetiracet Levetiracet No 1{table BID Levetirace am 500 MG am 500 MG t} liang 500 MG Combivent Combivent No 1{puff} Combivent Respimat Respimat Respimat 20MCG /100 20MCG /100 20MCG /100 MCG MCG MCG Duloxetine Duloxetine No 1{capsu BID Duloxetine HCl 20 MG HCl 20 MG le} HCl 20 MG Acetaminoph Acetaminoph No 1{table BID Acetaminop en 500 MG en 500 MG t_as_ne hen 500 MG eded} Restasis Restasis No 1{drop_ BID Restasis 0.05 % 0.05 % into_af 0.05 % fected_ eye} Lumigan Lumigan No 1{drop_ QD Lumigan 0.01 % 0.01 % into_af 0.01 % fected_ eye_in_ the_eve [place]} Clonazepam Clonazepam No 1{table Clonazepam 0.5 MG 0.5 MG t_at_be 0.5 MG dtime} Simvastatin Simvastatin No 1{table QD Simvastati 20 MG 20 MG t_in_th n 20 MG e_eveni ng} Metoprolol Metoprolol No 1{table BID Metoprolol Tartrate 50 Tartrate 50 t} Tartrate MG MG 50 MG Trelegy Trelegy No 1{puff} QD Trelegy Ellipta Ellipta Ellipta 100-62.5-25 100-62.5-25 100-62.5-2 MCG/INH MCG/INH 5 MCG/INH Amlodipine Amlodipine No 1{table QD Amlodipine Besylate 5 Besylate 5 t} Besylate 5 MG MG MG Stiolto Stiolto No 2{puffs QD Stiolto Respimat Respimat } Respimat 2.5mcg/2.5m 2.5mcg/2.5m 2.5mcg/2.5 cg cg mcg Omeprazole Omeprazole No 1{capsu Omeprazole 20 MG 20 MG le} 20 MG Cyclobenzap Cyclobenzap No 1{table QD Cyclobenza rine HCl 5 rine HCl 5 t_at_be julián HCl MG MG dtime_a 5 MG s_neede d} Gabapentin Gabapentin No 2{ml} QD Gabapentin 300 MG/6ML 300 MG/6ML 300 MG/6ML Gabapentin Gabapentin No 2{ml} Gabapentin 250 MG/5ML 250 MG/5ML 250 MG/5ML Amitriptyli Amitriptyli No 1{table QD Amitriptyl ne HCl 50 ne HCl 50 t_at_be ine HCl 50 MG MG dtime} MG Levetiracet Levetiracet No 1{table BID Levetirace am 500 MG am 500 MG t} liang 500 MG Combivent Combivent No 1{puff} Combivent Respimat Respimat Respimat 20MCG /100 20MCG /100 20MCG /100 MCG MCG MCG Duloxetine Duloxetine No 1{capsu BID Duloxetine HCl 20 MG HCl 20 MG le} HCl 20 MG Acetaminoph Acetaminoph No 1{table BID Acetaminop en 500 MG en 500 MG t_as_ne hen 500 MG eded} Restasis Restasis No 1{drop_ BID Restasis 0.05 % 0.05 % into_af 0.05 % fected_ eye} Lumigan Lumigan No 1{drop_ QD Lumigan 0.01 % 0.01 % into_af 0.01 % fected_ eye_in_ the_eve [place]} Clonazepam Clonazepam No 1{table Clonazepam 0.5 MG 0.5 MG t_at_be 0.5 MG dtime} Simvastatin Simvastatin No 1{table QD Simvastati 20 MG 20 MG t_in_th n 20 MG e_eveni ng} Metoprolol Metoprolol No 1{table BID Metoprolol Tartrate 50 Tartrate 50 t} Tartrate MG MG 50 MG Trelegy Trelegy No 1{puff} QD Trelegy Ellipta Ellipta Ellipta 100-62.5-25 100-62.5-25 100-62.5-2 MCG/INH MCG/INH 5 MCG/INH Amlodipine Amlodipine No 1{table QD Amlodipine Besylate 5 Besylate 5 t} Besylate 5 MG MG MG Stiolto Stiolto No 2{puffs QD Stiolto Respimat Respimat } Respimat 2.5mcg/2.5m 2.5mcg/2.5m 2.5mcg/2.5 cg cg mcg Omeprazole Omeprazole No 1{capsu Omeprazole 20 MG 20 MG le} 20 MG Cyclobenzap Cyclobenzap No 1{table QD Cyclobenza rine HCl 5 rine HCl 5 t_at_be julián HCl MG MG dtime_a 5 MG s_neede d} Gabapentin Gabapentin No 2{ml} QD Gabapentin 300 MG/6ML 300 MG/6ML 300 MG/6ML Gabapentin Gabapentin No 2{ml} Gabapentin 250 MG/5ML 250 MG/5ML 250 MG/5ML Amitriptyli Amitriptyli No 1{table QD Amitriptyl ne HCl 50 ne HCl 50 t_at_be ine HCl 50 MG MG dtime} MG Levetiracet Levetiracet No 1{table BID Levetirace am 500 MG am 500 MG t} liang 500 MG Combivent Combivent No 1{puff} Combivent Respimat Respimat Respimat 20MCG /100 20MCG /100 20MCG /100 MCG MCG MCG Duloxetine Duloxetine No 1{capsu BID Duloxetine HCl 20 MG HCl 20 MG le} HCl 20 MG Acetaminoph Acetaminoph No 1{table BID Acetaminop en 500 MG en 500 MG t_as_ne hen 500 MG eded} Restasis Restasis No 1{drop_ BID Restasis 0.05 % 0.05 % into_af 0.05 % fected_ eye} Lumigan Lumigan No 1{drop_ QD Lumigan 0.01 % 0.01 % into_af 0.01 % fected_ eye_in_ the[place]} Clonazepam Clonazepam No 1{table Clonazepam 0.5 MG 0.5 MG t_at_be 0.5 MG dtime} Simvastatin Simvastatin No 1{table QD Simvastati 20 MG 20 MG t_in_th n 20 MG e_eveni ng} Metoprolol Metoprolol No 1{table BID Metoprolol Tartrate 50 Tartrate 50 t} Tartrate MG MG 50 MG Trelegy Trelegy No 1{puff} QD Trelegy Ellipta Ellipta Ellipta 100-62.5-25 100-62.5-25 100-62.5-2 MCG/INH MCG/INH 5 MCG/INH Amlodipine Amlodipine No 1{table QD Amlodipine Besylate 5 Besylate 5 t} Besylate 5 MG MG MG Stiolto Stiolto No 2{puffs QD Stiolto Respimat Respimat } Respimat 2.5mcg/2.5m 2.5mcg/2.5m 2.5mcg/2.5 cg cg mcg Omeprazole Omeprazole No 1{capsu Omeprazole 20 MG 20 MG le} 20 MG Cyclobenzap Cyclobenzap No 1{table QD Cyclobenza rine HCl 5 rine HCl 5 t_at_be julián HCl MG MG dtime_a 5 MG s_neede d} Gabapentin Gabapentin No 2{ml} QD Gabapentin 300 MG/6ML 300 MG/6ML 300 MG/6ML Gabapentin Gabapentin No 2{ml} Gabapentin 250 MG/5ML 250 MG/5ML 250 MG/5ML Amitriptyli Amitriptyli No 1{table QD Amitriptyl ne HCl 50 ne HCl 50 t_at_be ine HCl 50 MG MG dtime} MG Levetiracet Levetiracet No 1{table BID Levetirace am 500 MG am 500 MG t} liang 500 MG Combivent Combivent No 1{puff} Combivent Respimat Respimat Respimat 20MCG /100 20MCG /100 20MCG /100 MCG MCG MCG Duloxetine Duloxetine No 1{capsu BID Duloxetine HCl 20 MG HCl 20 MG le} HCl 20 MG Acetaminoph Acetaminoph No 1{table BID Acetaminop en 500 MG en 500 MG t_as_ne hen 500 MG eded} Restasis Restasis No 1{drop_ BID Restasis 0.05 % 0.05 % into_af 0.05 % fected_ eye} Lumigan Lumigan No 1{drop_ QD Lumigan 0.01 % 0.01 % into_af 0.01 % fected_ eye_in_ the[place]} Clonazepam Clonazepam No 1{table Clonazepam 0.5 MG 0.5 MG t_at_be 0.5 MG dtime} Simvastatin Simvastatin No 1{table QD Simvastati 20 MG 20 MG t_in_th n 20 MG e_eveni ng} Metoprolol Metoprolol No 1{table BID Metoprolol Tartrate 50 Tartrate 50 t} Tartrate MG MG 50 MG Trelegy Trelegy No 1{puff} QD Trelegy Ellipta Ellipta Ellipta 100-62.5-25 100-62.5-25 100-62.5-2 MCG/INH MCG/INH 5 MCG/INH Amlodipine Amlodipine No 1{table QD Amlodipine Besylate 5 Besylate 5 t} Besylate 5 MG MG MG Stiolto Stiolto No 2{puffs QD Stiolto Respimat Respimat } Respimat 2.5mcg/2.5m 2.5mcg/2.5m 2.5mcg/2.5 cg cg mcg Amitriptyli Amitriptyli No 1{table QD Amitriptyl ne HCl 50 ne HCl 50 t_at_be ine HCl 50 MG MG dtime} MG Omeprazole Omeprazole No 1{capsu Omeprazole 20 MG 20 MG le} 20 MG Cyclobenzap Cyclobenzap No 1{table QD Cyclobenza rine HCl 5 rine HCl 5 t_at_be julián HCl MG MG dtime_a 5 MG s_neede d} Amlodipine Amlodipine No 1{table QD Amlodipine Besylate 5 Besylate 5 t} Besylate 5 MG MG MG Simvastatin Simvastatin No 1{table QD Simvastati 20 MG 20 MG t_in_th n 20 MG e_eveni ng} Duloxetine Duloxetine No 1{capsu BID Duloxetine HCl 60 MG HCl 60 MG le} HCl 60 MG Metoprolol Metoprolol No 1{table BID Metoprolol Tartrate 50 Tartrate 50 t} Tartrate MG MG 50 MG Acetaminoph Acetaminoph No 1{table BID Acetaminop en 500 MG en 500 MG t_as_ne hen 500 MG eded} Stiolto Stiolto No 2{puffs QD Stiolto Respimat Respimat } Respimat 2.5mcg/2.5m 2.5mcg/2.5m 2.5mcg/2.5 cg cg mcg Levetiracet Levetiracet No 1{table BID Levetirace am 500 MG am 500 MG t} liang 500 MG Lumigan Lumigan No 1{drop_ QD Lumigan 0.01 % 0.01 % into_af 0.01 % fected_ eye_in_ the[place]} Trelegy Trelegy No 1{puff} QD Trelegy Ellipta Ellipta Ellipta 100-62.5-25 100-62.5-25 100-62.5-2 MCG/INH MCG/INH 5 MCG/INH Gabapentin Gabapentin No 5{ml} BID Gabapentin 250 MG/5ML 250 MG/5ML 250 MG/5ML Combivent Combivent No 1{puff} Combivent Respimat Respimat Respimat 20MCG /100 20MCG /100 20MCG /100 MCG MCG MCG Restasis Restasis No 1{drop_ BID Restasis 0.05 % 0.05 % into_af 0.05 % fected_ eye} Amitriptyli Amitriptyli No 1{table QD Amitriptyl ne HCl 50 ne HCl 50 t_at_be ine HCl 50 MG MG dtime} MG Omeprazole Omeprazole No 1{capsu Omeprazole 20 MG 20 MG le} 20 MG Cyclobenzap Cyclobenzap No 1{table QD Cyclobenza rine HCl 5 rine HCl 5 t_at_be julián HCl MG MG dtime_a 5 MG s_neede d} Amlodipine Amlodipine No 1{table QD Amlodipine Besylate 5 Besylate 5 t} Besylate 5 MG MG MG Simvastatin Simvastatin No 1{table QD Simvastati 20 MG 20 MG t_in_th n 20 MG e_eveni ng} Duloxetine Duloxetine No 1{capsu BID Duloxetine HCl 60 MG HCl 60 MG le} HCl 60 MG Metoprolol Metoprolol No 1{table BID Metoprolol Tartrate 50 Tartrate 50 t} Tartrate MG MG 50 MG Acetaminoph Acetaminoph No 1{table BID Acetaminop en 500 MG en 500 MG t_as_ne hen 500 MG eded} Stiolto Stiolto No 2{puffs QD Stiolto Respimat Respimat } Respimat 2.5mcg/2.5m 2.5mcg/2.5m 2.5mcg/2.5 cg cg mcg Levetiracet Levetiracet No 1{table BID Levetirace am 500 MG am 500 MG t} liang 500 MG Lumigan Lumigan No 1{drop_ QD Lumigan 0.01 % 0.01 % into_af 0.01 % fected_ eye_in_ the[place]} Trelegy Trelegy No 1{puff} QD Trelegy Ellipta Ellipta Ellipta 100-62.5-25 100-62.5-25 100-62.5-2 MCG/INH MCG/INH 5 MCG/INH Gabapentin Gabapentin No 5{ml} BID Gabapentin 250 MG/5ML 250 MG/5ML 250 MG/5ML Combivent Combivent No 1{puff} Combivent Respimat Respimat Respimat 20MCG /100 20MCG /100 20MCG /100 MCG MCG MCG Restasis Restasis No 1{drop_ BID Restasis 0.05 % 0.05 % into_af 0.05 % fected_ eye} Omeprazole Omeprazole No 1{capsu Omeprazole 20 MG 20 MG le} 20 MG Restasis Restasis No 1{drop_ BID Restasis 0.05 % 0.05 % into_af 0.05 % fected_ eye} amLODIPine amLODIPine No 1{table QD amLODIPine Besylate 5 Besylate 5 t} Besylate 5 MG MG MG Amitriptyli Amitriptyli No 1{table QD Amitriptyl ne HCl 50 ne HCl 50 t_at_be ine HCl 50 MG MG dtime} MG Simvastatin Simvastatin No 1{table QD Simvastati 20 MG 20 MG t_in_th n 20 MG e_eveni ng} DULoxetine DULoxetine No 1{capsu BID DULoxetine HCl 60 MG HCl 60 MG le} HCl 60 MG Metoprolol Metoprolol No 1{table BID Metoprolol Tartrate 50 Tartrate 50 t} Tartrate MG MG 50 MG Acetaminoph Acetaminoph No 1{table BID Acetaminop en 500 MG en 500 MG t_as_ne hen 500 MG eded} levETIRAcet levETIRAcet No 1{table BID levETIRAce am 500 MG am 500 MG t} liang 500 MG Cyclobenzap Cyclobenzap No 1{table QD Cyclobenza rine HCl 5 rine HCl 5 t_at_be julián HCl MG MG dtime_a 5 MG s_neede d} Gabapentin Gabapentin No 5{ml} BID Gabapentin 250 MG/5ML 250 MG/5ML 250 MG/5ML Trelegy Trelegy No 1{puff} QD Trelegy Ellipta Ellipta Ellipta 100-62.5-25 100-62.5-25 100-62.5-2 MCG/INH MCG/INH 5 MCG/INH Stiolto Stiolto No 2{puffs QD Stiolto Respimat Respimat } Respimat 2.5mcg/2.5m 2.5mcg/2.5m 2.5mcg/2.5 cg cg mcg Combivent Combivent No 1{puff} Combivent Respimat Respimat Respimat 20MCG /100 20MCG /100 20MCG /100 MCG MCG MCG Lumigan Lumigan No 1{drop_ QD Lumigan 0.01 % 0.01 % into_af 0.01 % fected_ eye_in_ the[place]} Amitriptyli Amitriptyli No 1{table QD Amitriptyl ne HCl 50 ne HCl 50 t_at_be ine HCl 50 MG MG dtime} MG Lumigan Lumigan No 1{drop_ QD Lumigan 0.01 % 0.01 % into_af 0.01 % fected_ eye_in_ the[place]} Restasis Restasis No 1{drop_ BID Restasis 0.05 % 0.05 % into_af 0.05 % fected_ eye} DULoxetine DULoxetine No 1{capsu BID DULoxetine HCl 60 MG HCl 60 MG le} HCl 60 MG Acetaminoph Acetaminoph No 1{table BID Acetaminop en 500 MG en 500 MG t_as_ne hen 500 MG eded} Trelegy Trelegy No 1{puff} QD Trelegy Ellipta Ellipta Ellipta 100-62.5-25 100-62.5-25 100-62.5-2 MCG/INH MCG/INH 5 MCG/INH Simvastatin Simvastatin No 1{table QD Simvastati 20 MG 20 MG t_in_th n 20 MG e_eveni ng} amLODIPine amLODIPine No 1{table QD amLODIPine Besylate 5 Besylate 5 t} Besylate 5 MG MG MG Omeprazole Omeprazole No 1{capsu Omeprazole 20 MG 20 MG le} 20 MG Combivent Combivent No 1{puff} Combivent Respimat Respimat Respimat 20MCG /100 20MCG /100 20MCG /100 MCG MCG MCG Gabapentin Gabapentin No 5{ml} BID Gabapentin 250 MG/5ML 250 MG/5ML 250 MG/5ML Clopidogrel Clopidogrel No 1{table QD Clopidogre Bisulfate Bisulfate t} l 75 MG 75 MG Bisulfate 75 MG Cyclobenzap Cyclobenzap No 1{table QD Cyclobenza rine HCl 5 rine HCl 5 t_at_be julián HCl MG MG dtime_a 5 MG s_neede d} Metoprolol Metoprolol No 1{table BID Metoprolol Tartrate 50 Tartrate 50 t} Tartrate MG MG 50 MG Stiolto Stiolto No 2{puffs QD Stiolto Respimat Respimat } Respimat 2.5mcg/2.5m 2.5mcg/2.5m 2.5mcg/2.5 cg cg mcg levETIRAcet levETIRAcet No 1{table BID levETIRAce am 500 MG am 500 MG t} liang 500 MG Omeprazole Omeprazole No 1{capsu Omeprazole 20 MG 20 MG le} 20 MG Amitriptyli Amitriptyli No 1{table QD Amitriptyl ne HCl 50 ne HCl 50 t_at_be ine HCl 50 MG MG dtime} MG Restasis Restasis No 1{drop_ BID Restasis 0.05 % 0.05 % into_af 0.05 % fected_ eye} DULoxetine DULoxetine No 1{capsu BID DULoxetine HCl 60 MG HCl 60 MG le} HCl 60 MG Acetaminoph Acetaminoph No 1{table BID Acetaminop en 500 MG en 500 MG t_as_ne hen 500 MG eded} Trelegy Trelegy No 1{puff} QD Trelegy Ellipta Ellipta Ellipta 100-62.5-25 100-62.5-25 100-62.5-2 MCG/INH MCG/INH 5 MCG/INH Simvastatin Simvastatin No 1{table QD Simvastati 20 MG 20 MG t_in_th n 20 MG e_eveni ng} amLODIPine amLODIPine No 1{table QD amLODIPine Besylate 5 Besylate 5 t} Besylate 5 MG MG MG Combivent Combivent No 1{puff} Combivent Respimat Respimat Respimat 20MCG /100 20MCG /100 20MCG /100 MCG MCG MCG Gabapentin Gabapentin No 5{ml} BID Gabapentin 250 MG/5ML 250 MG/5ML 250 MG/5ML levETIRAcet levETIRAcet No 1{table BID levETIRAce am 500 MG am 500 MG t} liang 500 MG Cyclobenzap Cyclobenzap No 1{table QD Cyclobenza rine HCl 5 rine HCl 5 t_at_be julián HCl MG MG dtime_a 5 MG s_neede d} Clopidogrel Clopidogrel No 1{table QD Clopidogre Bisulfate Bisulfate t} l 75 MG 75 MG Bisulfate 75 MG Metoprolol Metoprolol No 1{table BID Metoprolol Tartrate 50 Tartrate 50 t} Tartrate MG MG 50 MG Stiolto Stiolto No 2{puffs QD Stiolto Respimat Respimat } Respimat 2.5mcg/2.5m 2.5mcg/2.5m 2.5mcg/2.5 cg cg mcg Lumigan Lumigan No 1{drop_ QD Lumigan 0.01 % 0.01 % into_af 0.01 % fected_ eye_in_ the[place]} Trelegy Trelegy No 1{puff} QD Trelegy Ellipta Ellipta Ellipta 100-62.5-25 100-62.5-25 100-62.5-2 MCG/INH MCG/INH 5 MCG/INH Lumigan Lumigan No 1{drop_ QD Lumigan 0.01 % 0.01 % into_af 0.01 % fected_ eye_in_ the[place]} Metoprolol Metoprolol No 1{table BID Metoprolol Tartrate 50 Tartrate 50 t} Tartrate MG MG 50 MG Omeprazole Omeprazole No 1{capsu Omeprazole 20 MG 20 MG le} 20 MG Simvastatin Simvastatin No 1{table QD Simvastati 20 MG 20 MG t_in_th n 20 MG e_eveni ng} levETIRAcet levETIRAcet No 1{table BID levETIRAce am 500 MG am 500 MG t} liang 500 MG Gabapentin Gabapentin No 5{ml} BID Gabapentin 250 MG/5ML 250 MG/5ML 250 MG/5ML DULoxetine DULoxetine No 1{capsu BID DULoxetine HCl 60 MG HCl 60 MG le} HCl 60 MG Stiolto Stiolto No 2{puffs QD Stiolto Respimat Respimat } Respimat 2.5mcg/2.5m 2.5mcg/2.5m 2.5mcg/2.5 cg cg mcg Celecoxib Celecoxib No Celecoxib 100 MG 100 MG 100 MG Acetaminoph Acetaminoph No 1{table BID Acetaminop en 500 MG en 500 MG t_as_ne hen 500 MG eded} Cyclobenzap Cyclobenzap No 1{table QD Cyclobenza rine HCl 5 rine HCl 5 t_at_be julián HCl MG MG dtime_a 5 MG s_neede d} Amitriptyli Amitriptyli No 1{table QD Amitriptyl ne HCl 50 ne HCl 50 t_at_be ine HCl 50 MG MG dtime} MG Clopidogrel Clopidogrel No 1{table QD Clopidogre Bisulfate Bisulfate t} l 75 MG 75 MG Bisulfate 75 MG Restasis Restasis No 1{drop_ BID Restasis 0.05 % 0.05 % into_af 0.05 % fected_ eye} amLODIPine amLODIPine No 1{table QD amLODIPine Besylate 5 Besylate 5 t} Besylate 5 MG MG MG Combivent Combivent No 1{puff} Combivent Respimat Respimat Respimat 20MCG /100 20MCG /100 20MCG /100 MCG MCG MCG Trelegy Trelegy No 1{puff} QD Trelegy Ellipta Ellipta Ellipta 100-62.5-25 100-62.5-25 100-62.5-2 MCG/INH MCG/INH 5 MCG/INH Lumigan Lumigan No 1{drop_ QD Lumigan 0.01 % 0.01 % into_af 0.01 % fected_ eye_in_ the[place]} Metoprolol Metoprolol No 1{table BID Metoprolol Tartrate 50 Tartrate 50 t} Tartrate MG MG 50 MG Omeprazole Omeprazole No 1{capsu Omeprazole 20 MG 20 MG le} 20 MG Simvastatin Simvastatin No 1{table QD Simvastati 20 MG 20 MG t_in_th n 20 MG e_eveni ng} levETIRAcet levETIRAcet No 1{table BID levETIRAce am 500 MG am 500 MG t} liang 500 MG Gabapentin Gabapentin No 5{ml} BID Gabapentin 250 MG/5ML 250 MG/5ML 250 MG/5ML DULoxetine DULoxetine No 1{capsu BID DULoxetine HCl 60 MG HCl 60 MG le} HCl 60 MG Stiolto Stiolto No 2{puffs QD Stiolto Respimat Respimat } Respimat 2.5mcg/2.5m 2.5mcg/2.5m 2.5mcg/2.5 cg cg mcg Celecoxib Celecoxib No Celecoxib 100 MG 100 MG 100 MG Acetaminoph Acetaminoph No 1{table BID Acetaminop en 500 MG en 500 MG t_as_ne hen 500 MG eded} Cyclobenzap Cyclobenzap No 1{table QD Cyclobenza rine HCl 5 rine HCl 5 t_at_be julián HCl MG MG dtime_a 5 MG s_neede d} Amitriptyli Amitriptyli No 1{table QD Amitriptyl ne HCl 50 ne HCl 50 t_at_be ine HCl 50 MG MG dtime} MG Clopidogrel Clopidogrel No 1{table QD Clopidogre Bisulfate Bisulfate t} l 75 MG 75 MG Bisulfate 75 MG Restasis Restasis No 1{drop_ BID Restasis 0.05 % 0.05 % into_af 0.05 % fected_ eye} amLODIPine amLODIPine No 1{table QD amLODIPine Besylate 5 Besylate 5 t} Besylate 5 MG MG MG Combivent Combivent No 1{puff} Combivent Respimat Respimat Respimat 20MCG /100 20MCG /100 20MCG /100 MCG MCG MCG Lumigan Lumigan No 1{drop_ QD Lumigan 0.01 % 0.01 % into_af 0.01 % fected_ eye_in_ the[place]} Combivent Combivent No 1{puff} Combivent Respimat Respimat Respimat 20MCG /100 20MCG /100 20MCG /100 MCG MCG MCG Simvastatin Simvastatin No 1{table QD Simvastati 20 MG 20 MG t_in_th n 20 MG e_eveni ng} amLODIPine amLODIPine No 1{table QD amLODIPine Besylate 5 Besylate 5 t} Besylate 5 MG MG MG Trelegy Trelegy No 1{puff} QD Trelegy Ellipta Ellipta Ellipta 100-62.5-25 100-62.5-25 100-62.5-2 MCG/INH MCG/INH 5 MCG/INH Stiolto Stiolto No 2{puffs QD Stiolto Respimat Respimat } Respimat 2.5mcg/2.5m 2.5mcg/2.5m 2.5mcg/2.5 cg cg mcg Cyclobenzap Cyclobenzap No 1{table QD Cyclobenza rine HCl 5 rine HCl 5 t_at_be julián HCl MG MG dtime_a 5 MG s_neede d} Restasis Restasis No 1{drop_ BID Restasis 0.05 % 0.05 % into_af 0.05 % fected_ eye} Clopidogrel Clopidogrel No 1{table QD Clopidogre Bisulfate Bisulfate t} l 75 MG 75 MG Bisulfate 75 MG Omeprazole Omeprazole No 1{capsu Omeprazole 20 MG 20 MG le} 20 MG Gabapentin Gabapentin No 5{ml} BID Gabapentin 250 MG/5ML 250 MG/5ML 250 MG/5ML Celecoxib Celecoxib No Celecoxib 100 MG 100 MG 100 MG levETIRAcet levETIRAcet No 1{table BID levETIRAce am 500 MG am 500 MG t} liang 500 MG Acetaminoph Acetaminoph No 1{table BID Acetaminop en 500 MG en 500 MG t_as_ne hen 500 MG eded} Metoprolol Metoprolol No 1{table BID Metoprolol Tartrate 50 Tartrate 50 t} Tartrate MG MG 50 MG DULoxetine DULoxetine No 1{capsu BID DULoxetine HCl 60 MG HCl 60 MG le} HCl 60 MG Amitriptyli Amitriptyli No 1{table QD Amitriptyl ne HCl 50 ne HCl 50 t_at_be ine HCl 50 MG MG dtime} MG Lumigan Lumigan No 1{drop_ QD Lumigan 0.01 % 0.01 % into_af 0.01 % fected_ eye_in_ the[place]} Combivent Combivent No 1{puff} Combivent Respimat Respimat Respimat 20MCG /100 20MCG /100 20MCG /100 MCG MCG MCG Simvastatin Simvastatin No 1{table QD Simvastati 20 MG 20 MG t_in_th n 20 MG e_eveni ng} amLODIPine amLODIPine No 1{table QD amLODIPine Besylate 5 Besylate 5 t} Besylate 5 MG MG MG Trelegy Trelegy No 1{puff} QD Trelegy Ellipta Ellipta Ellipta 100-62.5-25 100-62.5-25 100-62.5-2 MCG/INH MCG/INH 5 MCG/INH Stiolto Stiolto No 2{puffs QD Stiolto Respimat Respimat } Respimat 2.5mcg/2.5m 2.5mcg/2.5m 2.5mcg/2.5 cg cg mcg Cyclobenzap Cyclobenzap No 1{table QD Cyclobenza rine HCl 5 rine HCl 5 t_at_be julián HCl MG MG dtime_a 5 MG s_neede d} Restasis Restasis No 1{drop_ BID Restasis 0.05 % 0.05 % into_af 0.05 % fected_ eye} Clopidogrel Clopidogrel No 1{table QD Clopidogre Bisulfate Bisulfate t} l 75 MG 75 MG Bisulfate 75 MG Omeprazole Omeprazole No 1{capsu Omeprazole 20 MG 20 MG le} 20 MG Gabapentin Gabapentin No 5{ml} BID Gabapentin 250 MG/5ML 250 MG/5ML 250 MG/5ML Celecoxib Celecoxib No Celecoxib 100 MG 100 MG 100 MG levETIRAcet levETIRAcet No 1{table BID levETIRAce am 500 MG am 500 MG t} liang 500 MG Acetaminoph Acetaminoph No 1{table BID Acetaminop en 500 MG en 500 MG t_as_ne hen 500 MG eded} Metoprolol Metoprolol No 1{table BID Metoprolol Tartrate 50 Tartrate 50 t} Tartrate MG MG 50 MG DULoxetine DULoxetine No 1{capsu BID DULoxetine HCl 60 MG HCl 60 MG le} HCl 60 MG Amitriptyli Amitriptyli No 1{table QD Amitriptyl ne HCl 50 ne HCl 50 t_at_be ine HCl 50 MG MG dtime} MG Lumigan Lumigan No 1{drop_ QD Lumigan 0.01 % 0.01 % into_af 0.01 % fected_ eye_in_ the[place]} Combivent Combivent No 1{puff} Combivent Respimat Respimat Respimat 20MCG /100 20MCG /100 20MCG /100 MCG MCG MCG Simvastatin Simvastatin No 1{table QD Simvastati 20 MG 20 MG t_in_th n 20 MG e_eveni ng} amLODIPine amLODIPine No 1{table QD amLODIPine Besylate 5 Besylate 5 t} Besylate 5 MG MG MG Trelegy Trelegy No 1{puff} QD Trelegy Ellipta Ellipta Ellipta 100-62.5-25 100-62.5-25 100-62.5-2 MCG/INH MCG/INH 5 MCG/INH Stiolto Stiolto No 2{puffs QD Stiolto Respimat Respimat } Respimat 2.5mcg/2.5m 2.5mcg/2.5m 2.5mcg/2.5 cg cg mcg Cyclobenzap Cyclobenzap No 1{table QD Cyclobenza rine HCl 5 rine HCl 5 t_at_be julián HCl MG MG dtime_a 5 MG s_neede d} Restasis Restasis No 1{drop_ BID Restasis 0.05 % 0.05 % into_af 0.05 % fected_ eye} Clopidogrel Clopidogrel No 1{table QD Clopidogre Bisulfate Bisulfate t} l 75 MG 75 MG Bisulfate 75 MG Omeprazole Omeprazole No 1{capsu Omeprazole 20 MG 20 MG le} 20 MG Gabapentin Gabapentin No 5{ml} BID Gabapentin 250 MG/5ML 250 MG/5ML 250 MG/5ML Celecoxib Celecoxib No Celecoxib 100 MG 100 MG 100 MG levETIRAcet levETIRAcet No 1{table BID levETIRAce am 500 MG am 500 MG t} liang 500 MG Acetaminoph Acetaminoph No 1{table BID Acetaminop en 500 MG en 500 MG t_as_ne hen 500 MG eded} Metoprolol Metoprolol No 1{table BID Metoprolol Tartrate 50 Tartrate 50 t} Tartrate MG MG 50 MG DULoxetine DULoxetine No 1{capsu BID DULoxetine HCl 60 MG HCl 60 MG le} HCl 60 MG Amitriptyli Amitriptyli No 1{table QD Amitriptyl ne HCl 50 ne HCl 50 t_at_be ine HCl 50 MG MG dtime} MG Lumigan Lumigan No 1{drop_ QD Lumigan 0.01 % 0.01 % into_af 0.01 % fected_ eye_in_ the[place]} Combivent Combivent No 1{puff} Combivent Respimat Respimat Respimat 20MCG /100 20MCG /100 20MCG /100 MCG MCG MCG Simvastatin Simvastatin No 1{table QD Simvastati 20 MG 20 MG t_in_th n 20 MG e_eveni ng} amLODIPine amLODIPine No 1{table QD amLODIPine Besylate 5 Besylate 5 t} Besylate 5 MG MG MG Trelegy Trelegy No 1{puff} QD Trelegy Ellipta Ellipta Ellipta 100-62.5-25 100-62.5-25 100-62.5-2 MCG/INH MCG/INH 5 MCG/INH Stiolto Stiolto No 2{puffs QD Stiolto Respimat Respimat } Respimat 2.5mcg/2.5m 2.5mcg/2.5m 2.5mcg/2.5 cg cg mcg Cyclobenzap Cyclobenzap No 1{table QD Cyclobenza rine HCl 5 rine HCl 5 t_at_be julián HCl MG MG dtime_a 5 MG s_neede d} Restasis Restasis No 1{drop_ BID Restasis 0.05 % 0.05 % into_af 0.05 % fected_ eye} Clopidogrel Clopidogrel No 1{table QD Clopidogre Bisulfate Bisulfate t} l 75 MG 75 MG Bisulfate 75 MG Omeprazole Omeprazole No 1{capsu Omeprazole 20 MG 20 MG le} 20 MG Gabapentin Gabapentin No 5{ml} BID Gabapentin 250 MG/5ML 250 MG/5ML 250 MG/5ML Celecoxib Celecoxib No Celecoxib 100 MG 100 MG 100 MG levETIRAcet levETIRAcet No 1{table BID levETIRAce am 500 MG am 500 MG t} liang 500 MG Acetaminoph Acetaminoph No 1{table BID Acetaminop en 500 MG en 500 MG t_as_ne hen 500 MG eded} Metoprolol Metoprolol No 1{table BID Metoprolol Tartrate 50 Tartrate 50 t} Tartrate MG MG 50 MG DULoxetine DULoxetine No 1{capsu BID DULoxetine HCl 60 MG HCl 60 MG le} HCl 60 MG Amitriptyli Amitriptyli No 1{table QD Amitriptyl ne HCl 50 ne HCl 50 t_at_be ine HCl 50 MG MG dtime} MG Lumigan Lumigan No 1{drop_ QD Lumigan 0.01 % 0.01 % into_af 0.01 % fected_ eye_in_ the[place]} Combivent Combivent No 1{puff} Combivent Respimat Respimat Respimat 20MCG /100 20MCG /100 20MCG /100 MCG MCG MCG Simvastatin Simvastatin No 1{table QD Simvastati 20 MG 20 MG t_in_th n 20 MG e_eveni ng} amLODIPine amLODIPine No 1{table QD amLODIPine Besylate 5 Besylate 5 t} Besylate 5 MG MG MG Trelegy Trelegy No 1{puff} QD Trelegy Ellipta Ellipta Ellipta 100-62.5-25 100-62.5-25 100-62.5-2 MCG/INH MCG/INH 5 MCG/INH Stiolto Stiolto No 2{puffs QD Stiolto Respimat Respimat } Respimat 2.5mcg/2.5m 2.5mcg/2.5m 2.5mcg/2.5 cg cg mcg Cyclobenzap Cyclobenzap No 1{table QD Cyclobenza rine HCl 5 rine HCl 5 t_at_be julián HCl MG MG dtime_a 5 MG s_neede d} Restasis Restasis No 1{drop_ BID Restasis 0.05 % 0.05 % into_af 0.05 % fected_ eye} Clopidogrel Clopidogrel No 1{table QD Clopidogre Bisulfate Bisulfate t} l 75 MG 75 MG Bisulfate 75 MG Omeprazole Omeprazole No 1{capsu Omeprazole 20 MG 20 MG le} 20 MG Gabapentin Gabapentin No 5{ml} BID Gabapentin 250 MG/5ML 250 MG/5ML 250 MG/5ML Celecoxib Celecoxib No Celecoxib 100 MG 100 MG 100 MG levETIRAcet levETIRAcet No 1{table BID levETIRAce am 500 MG am 500 MG t} liang 500 MG Acetaminoph Acetaminoph No 1{table BID Acetaminop en 500 MG en 500 MG t_as_ne hen 500 MG eded} Metoprolol Metoprolol No 1{table BID Metoprolol Tartrate 50 Tartrate 50 t} Tartrate MG MG 50 MG DULoxetine DULoxetine No 1{capsu BID DULoxetine HCl 60 MG HCl 60 MG le} HCl 60 MG Amitriptyli Amitriptyli No 1{table QD Amitriptyl ne HCl 50 ne HCl 50 t_at_be ine HCl 50 MG MG dtime} MG amLODIPine amLODIPine No 1{table QD amLODIPine Besylate 5 Besylate 5 t} Besylate 5 MG MG MG levETIRAcet levETIRAcet No 1{table BID levETIRAce am 500 MG am 500 MG t} liang 500 MG Gabapentin Gabapentin No 5{ml} BID Gabapentin 250 MG/5ML 250 MG/5ML 250 MG/5ML Trelegy Trelegy No 1{puff} QD Trelegy Ellipta Ellipta Ellipta 100-62.5-25 100-62.5-25 100-62.5-2 MCG/INH MCG/INH 5 MCG/INH Stiolto Stiolto No 2{puffs QD Stiolto Respimat Respimat } Respimat 2.5mcg/2.5m 2.5mcg/2.5m 2.5mcg/2.5 cg cg mcg Cyclobenzap Cyclobenzap No 1{table QD Cyclobenza rine HCl 5 rine HCl 5 t_at_be julián HCl MG MG dtime_a 5 MG s_neede d} Omeprazole Omeprazole No 1{capsu Omeprazole 20 MG 20 MG le} 20 MG Lumigan Lumigan No 1{drop_ QD Lumigan 0.01 % 0.01 % into_af 0.01 % fected_ eye_in_ the_[place]} Restasis Restasis No 1{drop_ BID Restasis 0.05 % 0.05 % into_af 0.05 % fected_ eye} Metoprolol Metoprolol No 1{table BID Metoprolol Tartrate 50 Tartrate 50 t} Tartrate MG MG 50 MG Amitriptyli Amitriptyli No 1{table QD Amitriptyl ne HCl 50 ne HCl 50 t_at_be ine HCl 50 MG MG dtime} MG Celecoxib Celecoxib No Celecoxib 100 MG 100 MG 100 MG Clopidogrel Clopidogrel No 1{table QD Clopidogre Bisulfate Bisulfate t} l 75 MG 75 MG Bisulfate 75 MG Simvastatin Simvastatin No 1{table QD Simvastati 20 MG 20 MG t_in_th n 20 MG e_eveni ng} Acetaminoph Acetaminoph No 1{table BID Acetaminop en 500 MG en 500 MG t_as_ne hen 500 MG eded} Combivent Combivent No 1{puff} Combivent Respimat Respimat Respimat 20MCG /100 20MCG /100 20MCG /100 MCG MCG MCG DULoxetine DULoxetine No 1{capsu BID DULoxetine HCl 60 MG HCl 60 MG le} HCl 60 MG amLODIPine amLODIPine No 1{table QD amLODIPine Besylate 5 Besylate 5 t} Besylate 5 MG MG MG levETIRAcet levETIRAcet No 1{table BID levETIRAce am 500 MG am 500 MG t} liang 500 MG Gabapentin Gabapentin No 5{ml} BID Gabapentin 250 MG/5ML 250 MG/5ML 250 MG/5ML Trelegy Trelegy No 1{puff} QD Trelegy Ellipta Ellipta Ellipta 100-62.5-25 100-62.5-25 100-62.5-2 MCG/INH MCG/INH 5 MCG/INH Stiolto Stiolto No 2{puffs QD Stiolto Respimat Respimat } Respimat 2.5mcg/2.5m 2.5mcg/2.5m 2.5mcg/2.5 cg cg mcg Cyclobenzap Cyclobenzap No 1{table QD Cyclobenza rine HCl 5 rine HCl 5 t_at_be julián HCl MG MG dtime_a 5 MG s_neede d} Omeprazole Omeprazole No 1{capsu Omeprazole 20 MG 20 MG le} 20 MG Lumigan Lumigan No 1{drop_ QD Lumigan 0.01 % 0.01 % into_af 0.01 % fected_ eye_in_ the_[place]} Restasis Restasis No 1{drop_ BID Restasis 0.05 % 0.05 % into_af 0.05 % fected_ eye} Metoprolol Metoprolol No 1{table BID Metoprolol Tartrate 50 Tartrate 50 t} Tartrate MG MG 50 MG Amitriptyli Amitriptyli No 1{table QD Amitriptyl ne HCl 50 ne HCl 50 t_at_be ine HCl 50 MG MG dtime} MG Celecoxib Celecoxib No Celecoxib 100 MG 100 MG 100 MG Clopidogrel Clopidogrel No 1{table QD Clopidogre Bisulfate Bisulfate t} l 75 MG 75 MG Bisulfate 75 MG Simvastatin Simvastatin No 1{table QD Simvastati 20 MG 20 MG t_in_th n 20 MG e_eveni ng} Acetaminoph Acetaminoph No 1{table BID Acetaminop en 500 MG en 500 MG t_as_ne hen 500 MG eded} Combivent Combivent No 1{puff} Combivent Respimat Respimat Respimat 20MCG /100 20MCG /100 20MCG /100 MCG MCG MCG DULoxetine DULoxetine No 1{capsu BID DULoxetine HCl 60 MG HCl 60 MG le} HCl 60 MG Combivent Combivent No 1{puff_ Combivent Respimat Respimat as_need Respimat 20MCG /100 20MCG /100 ed} 20MCG /100 MCG MCG MCG Stiolto Stiolto No 2{puffs QD Stiolto Respimat Respimat } Respimat 2.5mcg/2.5m 2.5mcg/2.5m 2.5mcg/2.5 cg cg mcg Duloxetine Duloxetine No 1{capsu BID Duloxetine HCl 20 MG HCl 20 MG le} HCl 20 MG Restasis Restasis No 1{drop_ BID Restasis 0.05 % 0.05 % into_af 0.05 % fected_ eye} Omeprazole Omeprazole No 1{capsu Omeprazole 20 MG 20 MG le} 20 MG Combivent Combivent No 1{puff} Combivent Respimat Respimat Respimat 20MCG /100 20MCG /100 20MCG /100 MCG MCG MCG Cyclobenzap Cyclobenzap No 1{table QD Cyclobenza rine HCl 5 rine HCl 5 t_at_be julián HCl MG MG dtime_a 5 MG s_neede d} Amlodipine Amlodipine No 1{table QD Amlodipine Besylate 5 Besylate 5 t} Besylate 5 MG MG MG Amitriptyli Amitriptyli No 1{table QD Amitriptyl ne HCl 50 ne HCl 50 t_at_be ine HCl 50 MG MG dtime} MG Gabapentin Gabapentin No Gabapentin 100 MG 100 MG 100 MG Simvastatin Simvastatin No 1{table QD Simvastati 20 MG 20 MG t_in_th n 20 MG e_eveni ng} Lumigan Lumigan No 1{drop_ QD Lumigan 0.01 % 0.01 % into_af 0.01 % fected_ eye_in_ the_eve milton} Clonazepam Clonazepam No 1{table Clonazepam 0.5 MG 0.5 MG t_at_be 0.5 MG dtime} Levetiracet Levetiracet No 1{table BID Levetirace am 500 MG am 500 MG t} liang 500 MG Restasis Restasis No 1{drop_ BID Restasis 0.05 % 0.05 % into_af 0.05 % fected_ eye} Metoprolol Metoprolol No 1{table BID Metoprolol Tartrate 50 Tartrate 50 t} Tartrate MG MG 50 MG Combivent Combivent 2020- No Libra 1 puff as Common Respimat Respimat 01-10 [facility]00 [facility] Stiolto Stiolto 2020- No Libra 2 puffs Comm on Respimat Respimat 01-10 [facility] 00:[facility] - [facility] :00 [facility] Vital Signs Vital Name Observation Time Observation Value Comments Source height 2022-06-29 14:30:00 58.00 [in_i] [facility] weight 2022-06-29 14:30:00 97 [lb_av] [facility] temperature 2022-06-29 14:30:00 97.6 [degF] [facility] bmi 2022-06-29 14:30:00 20.27 kg/m2 [facility] blood pressure 2022-06-29 14:30:00 133 mm[Hg] [facility] - [facility] blood pressure 2022-06-29 14:30:00 67 mm[Hg] [facility] - diastolic [facility] height 2021-06-04 10:00:00 58.00 [in_i] Common [facility] weight 2021-06-04 10:00:00 95 [lb_av] [facility] bmi 2021-06-04 10:00:00 19.85 kg/m2 [facility] height 2020-09-16 10:40:00 58.00 [in_i] Common [facility] weight 2020-09-16 10:40:00 90.3 [lb_av] Common [facility] temperature 2020-09-16 10:40:00 98.1 [degF] [facility] bmi 2020-09-16 10:40:00 18.87 kg/m2 [facility] oximetry 2020-09-16 10:40:00 98 % [facility] respiratory rate 2020-09-16 10:40:00 18 /min Comm on [facility] blood pressure 2020-09-16 10:40:00 130 mm[Hg] Common [facility] - systolic [facility] blood pressure 2020-09-16 10:40:00 60 mm[Hg] Common [facility] - diastolic [facility] height 2020-08-05 10:00:00 58.00 [in_i] Common [facility] weight 2020-08-05 10:00:00 90.2 [lb_av] [facility] temperature 2020-08-05 10:00:00 97.7 [degF] [facility] bmi 2020-08-05 10:00:00 18.85 kg/m2 [facility] respiratory rate 2020-08-05 10:00:00 16 /min Comm on [facility] blood pressure 2020-08-05 10:00:00 102 mm[Hg] Common [facility] - systolic [facility] blood pressure 2020-08-05 10:00:00 60 mm[Hg] Common [facility] - diastolic [facility] height 2020-07-18 11:00:00 58.00 [in_i] [facility] weight 2020-07-18 11:00:00 90.6 [lb_av] [facility] temperature 2020-07-18 11:00:00 97.5 [degF] Common [facility] bmi 2020-07-18 11:00:00 18.93 kg/m2 [facility] oximetry 2020-07-18 11:00:00 98 % [facility] respiratory rate 2020-07-18 11:00:00 18 /min Comm on [facility] blood pressure 2020-07-18 11:00:00 102 mm[Hg] [facility] - systolic [facility] blood pressure 2020-07-18 11:00:00 60 mm[Hg] Common [facility] - diastolic [facility] Procedures This patient has no known procedures. Encounters Start End Encounter Admission Attending Care Care Encounter Source Date/Time Date/Time Type Type Clinicians Facility Department ID 2022-06-29 Outpatient Baltazar, Na STLMLC STLMLC [id number] Common 15:04:01 [facility] 2022-06-23 Outpatient Baltazar, Na STLMLC STLMLC [id number] Common 09:40:01 [facility] 2022-06-17 Outpatient Baltazar, Na STLMLC STLMLC [id number] Common 10:40:00 [facility] 2021-10-01 Outpatient Baltazar, Na STLMLC STLMLC [id number] Common 13:15:58 [facility] 2021-10-01 Outpatient Baltazar, Na STLMLC STLMLC [id number] Common 13:15:25 [id number] [facility] 2021-10-01 Outpatient Baltazar, Na STLMLC STLMLC [id number] Common 13:14:48 [id number] [facility] 2021-10-01 Outpatient Giovanny, Na STLMLC STLMLC [id number] Common 12:59:52 [id number] [facility] 2021-10-01 Outpatient Kaba, STLMLC STLMLC [id number] Common 12:54:48 [facility] 21881 [facility] 2021-10-01 Outpatient Kaba, STLMLC STLMLC [id number] Common 12:50:49 [facility] 72147 [facility] 2021-10-01 Outpatient Kaba, STLMLC STLMLC [id number] Common 12:48:26 [facility] 55554 [facility] 2021-10-01 Outpatient Aubrie, STLMLC STLMLC [id number] Common 12:42:41 Josefina 51036 [facility] 2021-10-01 Outpatient Aubrie, STLMLC STLMLC [id number] Common 12:18:47 Josefina 94782 [facility] 2021-10-01 Outpatient Aubrie, STLMLC STLMLC [id number] Common 12:09:28 Josefina 14562 [facility] 2021-10-01 Outpatient Aubrie, STLMLC STLMLC [id number] Common 12:08:26 Josefina 75115 [facility] 2021-10-01 Outpatient Aubrie, STLMLC STLMLC [id number] Common 12:08:02 Josefina 54344 [facility] 2021-10-01 Outpatient Aubrie, STLMLC STLMLC [id number] Common 12:04:39 Josefina 72387 [facility] 2021-10-01 Outpatient Aubrie, STLMLC STLMLC [id number] Common 12:04:17 Josefina 91840 [facility] 2021-10-01 Outpatient Millender, STLMLC STLMLC [id number] Common 12:01:54 Libra 77635 [facility] 2021-10-01 Outpatient Millender, STLMLC STLMLC [id number] 11:28:52 Libra 89850 [facility] 2021-10-01 Outpatient Millender, STLMLC STLMLC [id number] 11:26:07 Libra 01162 [facility] 2021-10-01 Outpatient Millender, STLMLC STLMLC [id number] Common 11:24:38 Libra 39888 [facility] 2021-10-01 Outpatient Millender, STLMLC STLMLC [id number] Common 11:15:03 Libra 63496 [facility] 2021-10-01 Outpatient Millender, STLMLC STLMLC [id number] 11:13:14 Libra 50814 [facility] 2022-06-29 2022-06-29 OFFICE STLMLC STLMLC [id number] Co mmon 00:00:00 00:00:00 VISIT [facility] PT LEVEL 3 [facility] 2022-06-23 2022-06-23 (TEL) STLMLC STLMLC [id number] Co mmon 00:00:00 00:00:00 [facility] 2021-07-08 2021-07-08 (TEL) STLMLC STLMLC [id number] Co mmon 00:00:00 00:00:00 [facility] 2021-06-26 2021-06-26 (TEL) STLMLC STLMLC [id number] Co mmon 00:00:00 00:00:00 [facility] 2021-06-23 2021-06-23 (TEL) STLMLC STLMLC [id number] Co mmon 00:00:00 00:00:00 [facility] 2021-06-12 2021-06-12 (TEL) STLMLC STLMLC [id number] Co mmon 00:00:00 00:00:00 [facility] 2021-06-10 2021-06-10 (TEL) STLMLC STLMLC [id number] Co mmon 00:00:00 00:00:00 [facility] 2021-06-04 2021-06-04 OFFICE STLMLC STLMLC [id number] Co mmon 00:00:00 00:00:00 VISIT [facility] LEVEL 3 [facility] 2021-05-30 2021-05-30 (TEL) STLMLC STLMLC [id number] Co mmon 00:00:00 00:00:00 [facility] 2021-05-02 2021-05-02 (TEL) STLMLC STLMLC [id number] Co mmon 00:00:00 00:00:00 [facility] 2021-02-20 2021-02-20 OFFICE STLMLC STLMLC [id number] Co mmon 00:00:00 00:00:00 VISIT [facility] PT LEVEL 3 [facility] 2021-02-05 2021-02-05 (TEL) STLMLC STLMLC [id number] Co mmon 00:00:00 00:00:00 [facility] 2020-12-25 2020-12-25 (TEL) STLMLC STLMLC [id number] Co mmon 00:00:00 00:00:00 [facility] 2020-12-11 2020-12-11 OFFICE STLMLC STLMLC [id number] Co mmon 00:00:00 00:00:00 VISIT [facility] - [facility] LEVEL 4 [facility] 2020-11-25 2020-11-25 (TEL) STLMLC STLMLC [id number] Co mmon 00:00:00 00:00:00 [facility] 2020-11-08 2020-11-08 (TEL) STLMLC STLMLC [id number] Co mmon 00:00:00 00:00:00 [facility] 2020-11-04 2020-11-04 (TEL) STLMLC STLMLC [id number] Co mmon 00:00:00 00:00:00 [facility] 2020-10-29 2020-10-29 (TEL) STLMLC STLMLC [id number] Co mmon 00:00:00 00:00:00 [facility] 2020-09-30 2020-09-30 (TEL) STLMLC STLMLC [id number] Co mmon 00:00:00 00:00:00 [facility] 2020-09-18 2020-09-18 (TEL) STLMLC STLMLC [id number] Co mmon 00:00:00 00:00:00 [facility] 2020-09-16 2020-09-16 OFFICE STLMLC STLMLC [id number] Co mmon 00:00:00 00:00:00 VISIT [facility] PT LEVEL 3 - [facility] 2020-08-13 2020-08-13 (TEL) STLMLC STLMLC [id number] Co mmon 00:00:00 00:00:00 [facility] 2020-08-05 2020-08-05 OFFICE STLMLC STLMLC [id number] Co mmon 00:00:00 00:00:00 VISIT [facility] PT LEVEL 3 - [facility] 2020-07-23 2020-07-23 (TEL) STLMLC STLMLC [id number] Co mmon 00:00:00 00:00:00 [facility] 2020-07-18 2020-07-18 OFFICE STLMLC STLMLC [id number] Co mmon 00:00:00 00:00:00 VISIT [facility] PT - [facility] LEVEL 4 [facility] 2020-07-10 2020-07-10 (TEL) STLMLC STLMLC [id number] Co mmon 00:00:00 00:00:00 [facility] 2020-07-04 2020-07-04 Outpatient STLMLC STLMLC [id number] Common 00:00:00 00:00:00 [facility] 2020-06-13 2020-06-13 Outpatient STLMLC STLMLC [id number] Common 00:00:00 00:00:00 [facility] 2020-06-12 2020-06-12 Outpatient STLMLC STLMLC [id number] Common 00:00:00 00:00:00 [facility] 2020-06-05 2020-06-05 Outpatient STLMLC STLMLC [id number] Common 00:00:00 00:00:00 [facility] 2020-06-05 2020-06-05 Outpatient STLMLC STLMLC [id number] Common 00:00:00 00:00:00 [facility] 2020-05-21 2020-05-21 Outpatient STLMLC STLMLC [id number] Common 00:00:00 00:00:00 [facility] 2020-04-11 2020-04-11 [id number] Common 15:42:00 15:42:[address] [facility] 2020-04-04 2020-04-04 [id number] Common 11:00:00 11:00:[address] [facility] 2020-04-02 2020-04-02 [id number] Common 16:41:00 16:41:[address] [facility] 2020-03-27 2020-03-27 [facility] [id number] Common 09:05:00 09:05:[address] [facility] 2020-03-18 2020-03-18 [facility] [id number] Common 14:30:00 14:30:[address] [facility] 2020-03-04 2020-03-04 [facility] [id number] Common 15:57:00 15:57:[address] [facility] 2020-03-04 2020-03-04 [facility] [id number] Common 11:00:00 11:00:[address] [facility] 2020-02-28 2020-02-28 [facility] [id number] Common 16:56:00 16:56:[address] [facility] 2020-02-25 2020-02-25 [facility] [id number] Common 18:47:00 18:47:[address] [facility] 2020-02-21 2020-02-21 [id number] Common 10:01:00 10:01:[address] [facility] 2020-02-16 2020-02-16 [id number] Common 11:00:00 11:00:[address] [facility] 2020-02-14 2020-02-14 [facility] [id number] Common 18:14:00 18:14:[address] [facility] 2020-02-09 2020-02-09 [facility] [id number] Common 16:33:00 16:33:[address] [facility] 2020-02-01 2020-02-01 [facility] [id number] Common 09:00:00 09:00:[address] [facility] 2019-12-25 2019-12-25 [facility] [id number] Common 10:00:00 10:00:[address] [facility] 2019-11-24 2019-11-24 [facility] [id number] Common 08:25:00 08:25:[address] [facility] 2019-11-15 2019-11-15 [facility] [id number] Common 10:30:00 10:30:[address] [facility] Results This patient has no known results.
--- NOTE | 2023-02-08 13:15 | RAD REPORT ---
EXAM DESCRIPTION: CT - [id number] - 02/08/2023 1:02 pm CLINICAL HISTORY: Trauma, head and neck injury. TRAUMA COMPARISON: <Comparisons> TECHNIQUE: Axial 5 mm thick images of the head were obtained. Axial 2 mm thick images of the cervical spine were obtained with sagittal and coronal reconstruction images generated and reviewed. All CT scans are performed using dose optimization technique as appropriate and may include automated exposure control or mA/KV adjustment according to patient size. FINDINGS: CT HEAD WITHOUT CONTRAST: No acute hemorrhage, hydrocephalus or extra-axial collection is identified.Advanced generalized brain atrophy is present with advanced periventricular and deep white matter chronic microvascular ischemi c changes. 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 The paranasal sinuses and mastoids are clear.The calvarium is intact. CT CERVICAL SPINE WITHOUT CONTRAST: No fracture or subluxation.4 mm degenerative anterolisthesis of C2 on 3 is present. 3 mm degenerative retrolisthesis of C5 on 6. Moderate multilevel degenerative changes midcervical spine with disc thin milton and posterior osteophyte.No prevertebral soft tissues swelling is identified. Moderate degenerat rosalina dextroscoliosis. IMPRESSION: No acute intracranial or cervical spine findings. Moderately severe degenerative change with dextroscoliosis of the cervical spine.
[2023-02-08 13:38] LABS: Absolute Lymphocytes (CBC) 1.5 K/uL (0.7-4.9); Hematocrit 37.4 % (36.0-45.0); Lymphocytes % 15.2 % (15.3-44.8); MCV 91.7 fL (80-100); MPV 7.5 fL (7.6-11.3); RBC Red Blood Cell Count 4.08 M/uL (3.86-4.86)
--- NOTE | 2023-02-08 13:45 | RAD REPORT ---
EXAM DESCRIPTION: RAD - Chest Single View - 02/08/2023 1:40 pm CLINICAL HISTORY: fall Chest pain. COMPARISON: Chest Single View dated 06/16/2022; Chest Single View dated 10/16/2020; Chest Single View dated 05/05/2020; Chest Single View dated 04/07/2020 FINDINGS: Portable technique limits examination quality. The lungs are emphysematous but grossly clear. The heart is normal in size. No displaced fractures. IMPRESSION: No acute intrathoracic process suspected.
[2023-02-08 13:52] LABS: Albumin 3.5 g/dL (3.4-5.0); Bilirubin Total 0.6 mg/dL (0.2-1.0); Potassium 3.9 mEq/L (3.5-5.1); Protein, Total 7.7 g/dL (6.4-8.2); Troponin High Sensitivity 7.7 pg/mL (<58.9)
--- NOTE | 2023-02-08 13:59 | EDPHYS ---
Physician Documentation [facility] Name: Shilpa Richardson Age: 77 yrs Sex: Female : 1945 Arrival Date: 02/08/2023 Time: 12:19 Bed 6 Private MD: ED Physician Kunal Roche HPI: 02/08 13:14 This 77 yrs old Female presents to ER via EMS with complaints of Elbow Injury. rt 13:14 Patient presents to the ED with a fall that occurred yesterday. The patient cannot rt recall the events surrounding the fall. No clear the patient had a syncopal event or mechanical fall. There was reportedly pain to the right elbow, none currently. Patient states that she feels well has no complaints at this time. Symptoms are moderate severity, no other aggravating or alleviating factors.. Historical: - Allergies: 12:45 adhesive tape; bp 12:45 Codeine; bp 12:45 Diphenhydramine; bp 12:45 Erythromycin; bp 12:45 PENICILLINS; bp 12:45 Tape; bp - PMHx: 12:45 Hypertension; Emphysema; COPD; ADD/ADHD; Carotid blockage; Gastroesophageal reflux bp disease; Depression; Chronic pain; epilepsy; Anxiety; Alcoholism; - Immunization history:: Adult Immunizations up to date. - Social history:: Smoking status: Patient denies any tobacco usage or history of. ROS: 13:14 Constitutional: Negative for fever, chills, and weight loss, Cardiovascular: Negative rt for chest pain, palpitations, and edema, Respiratory: Negative for shortness of breath, cough, wheezing, and pleuritic chest pain, Abdomen/GI: Negative for abdominal pain, nausea, vomiting, diarrhea, and constipation, MS/Extremity: Negative for injury and deformity, Skin: Negative for injury, rash, and discoloration, Neuro: Negative for headache, weakness, numbness, tingling, and seizure, Psych: Negative for depression, anxiety, suicide ideation, homicidal ideation, and hallucinations. Exam: 13:14 Constitutional: This is a well developed, well nourished patient who is awake, alert, rt and in no acute distress. Head/Face: Normocephalic, atraumatic. Chest/axilla: Normal chest wall appearance and motion. Nontender with no deformity. No lesions are appreciated. Cardiovascular: Regular rate and rhythm with a normal S1 and S2. No gallops, murmurs, or rubs. Normal PMI, no JVD. No pulse deficits. Respiratory: Lungs have equal breath sounds bilaterally, clear to auscultation and percussion. No rales, rhonchi or wheezes noted. No increased work of breathing, no retractions or nasal flaring. Abdomen/GI: Soft, non-tender, with normal bowel sounds. No distension or tympany. No guarding or rebound. No evidence of tenderness throughout. Skin: Warm, dry with normal turgor. Normal color with no rashes, no lesions, and no evidence of cellulitis. MS/ Extremity: Pulses equal, no cyanosis. Neurovascular intact. Full, normal range of motion. Neuro: Awake and alert, GCS 15, oriented to person, place, time, and situation. Cranial nerves II-XII grossly intact. Motor strength 5/5 in all extremities. Sensory grossly intact. Cerebellar exam normal. Normal gait. Psych: Awake, alert, with orientation to person, place and time. Behavior, mood, and affect are within normal limits. 13:14 ECG was reviewed by the Attending Physician. Vital Signs: 12:43 BP 136 / 77; Pulse 67; Resp 16; Temp 98; Pulse Ox 98% on 3 lpm NC; bp 14:00 BP 165 / 83; Pulse 68; Resp 16; Pulse Ox 97% ; bp MDM: 12:44 Patient medically screened. rt 13:58 Differential diagnosis: Closed head injury, spinal fracture, electrolyte disturbance, rt dysrhythmia. Data reviewed: vital signs, nurses notes, lab test result(s), EKG, radiologic studies. Consideration of Admission/Observation Escalation of care including admission/observation considered. Care significantly affected by the following chronic conditions: Hypertension. Counseling: I had a detailed discussion with the patient and/or guardian regarding: the historical points, exam findings, and any diagnostic results supporting the discharge/admit diagnosis, the presence of at least one elevated blood pressure reading (>120/80) during this emergency department visit, lab results, radiology results, the need for outpatient follow up, to return to the emergency department if symptoms worsen or persist or if there are any questions or concerns that arise at home. 02/08 12:45 Order name: CBC with Diff; Complete Time: 13:49 rt 02/08 12:45 Order name: CMP; Complete Time: 13:55 rt 02/08 12:45 Order name: Troponin High Sensitivity; Complete Time: 13:55 rt 02/08 12:45 Order name: CT Head C Spine; Complete Time: 13:49 rt 02/08 12:45 Order name: Chest Single View XRAY; Complete Time: 13:49 rt 02/08 12:45 Order name: EKG; Complete Time: 12:47 rt 02/08 12:45 Order name: EKG - Nurse/Tech; Complete Time: 14:07 rt EC:14 Rate is 73 beats/min. Rhythm is regular, Normal Sinus Rhythm with No ectopy, Tremor rt artifact severely limits EKG interpretation. Interpreted by me. Administered Medications: No medications were administered Disposition Summary: 02/08/23 13:58 Discharge Ordered Location: Home rt Problem: new rt Symptoms: have improved rt Condition: Stable rt Diagnosis - Fall on same level, unspecified rt Followup: rt - With: Private Physician - When: 2 - 3 days - Reason: Discharge Instructions: - Discharge Summary Sheet rt - Fall Prevention in the Home, Adult rt Forms: - Medication Reconciliation Form rt - Thank You Letter rt - Antibiotic Education rt - Prescription Opioid Use rt Signatures: Dispatcher [employer] Erik Sawyer, ANJUM RN Kunal Cavazos MD MD rt
--- NOTE | 2023-02-08 13:59 | ER ---
Nurse's Notes [facility] Name: Shilpa Richardson Age: 77 yrs Sex: Female : 1945 Arrival Date: 02/08/2023 Time: 12:19 Bed 6 Private MD: Diagnosis: Fall on same level, unspecified Presentation: 02/08 12:43 Chief complaint: EMS states: FALL YESTERDAY AT [facility]. Coronavirus screen: At bp this time, the client does not indicate any symptoms associated with coronavirus-19. Ebola Screen: No symptoms or risks identified at this time. Initial Sepsis Screen: Does the patient meet any 2 criteria? No. Patient's initial sepsis screen is negative. Does the patient have a suspected source of infection? No. Patient's initial sepsis screen is negative. Risk Assessment: Do you want to hurt yourself or someone else? Patient reports no desire to harm self or others. Onset of symptoms is unknown. 12:43 Method Of Arrival: EMS: [facility] bp 12:43 Acuity: PATRICIA 3 bp Triage Assessment: 12:45 General: Appears in no apparent distress. Behavior is calm, cooperative. Pain: Denies bp pain. EENT: No deficits noted. Neuro: Level of Consciousness is awake, alert, Oriented to person, place. Cardiovascular: No deficits noted. Respiratory: No deficits noted. GI: No signs and/or symptoms were reported involving the gastrointestinal system. : No signs and/or symptoms were reported regarding the genitourinary system. Derm: No deficits noted. Musculoskeletal: Circulation, motion, and sensation intact. Injury Description: NONE. Historical: - Allergies: 12:45 adhesive tape; bp 12:45 Codeine; bp 12:45 Diphenhydramine; bp 12:45 Erythromycin; bp 12:45 PENICILLINS; bp 12:45 Tape; bp - PMHx: 12:45 Hypertension; Emphysema; COPD; ADD/ADHD; Carotid blockage; Gastroesophageal reflux bp disease; Depression; Chronic pain; epilepsy; Anxiety; Alcoholism; - Immunization history:: Adult Immunizations up to date. - Social history:: Smoking status: Patient denies any tobacco usage or history of. Screenin:46 [facility] ED Fall Risk Assessment (Adult) History of falling in the last 3 months, bp including since admission No falls in past 3 months (0 pts). Abuse screen: Denies threats or abuse. Denies injuries from another. Nutritional screening: No deficits noted. Tuberculosis screening: No symptoms or risk factors identified. Assessment: 12:46 General: SEE TRIAGE NOTE. bp 14:12 Reassessment: VARUN CONTACTED. PT TBDC. bp Vital Signs: 12:43 BP 136 / 77; Pulse 67; Resp 16; Temp 98; Pulse Ox 98% on 3 lpm NC; bp 14:00 BP 165 / 83; Pulse 68; Resp 16; Pulse Ox 97% ; bp ED Course: 12:43 Patient arrived in ED. bp 12:43 Erik Patiño, ANJUM is Primary Nurse. bp 12:44 Kunal Roche MD is Attending Physician. rt 12:44 Triage completed. bp 12:45 Arm band placed on. bp 12:46 Patient has correct armband on for positive identification. Bed in low position. Call bp light in reach. Side rails up X2. 13:04 CT Head C Spine In Process Unspecified. EDMS 13:42 Chest Single View XRAY In Process Unspecified. EDMS 14:12 IV discontinued, intact, bleeding controlled, No redness/swelling at site. Pressure bp dressing applied. 14:13 No provider procedures requiring assistance completed. bp Administered Medications: No medications were administered Outcome: 13:58 Discharge ordered by MD. rt 14:12 Discharged to [facility]. bp 14:43 Condition: stable bp 14:43 Instructed on discharge instructions, follow up and referral plans. 14:44 Patient left the ED. bp Signatures: Dispatcher [employer] EDErik Cardona RN RN bp Kunal Roche MD MD rt Corrections: (The following items were deleted from the chart) 14:44 14:12 Discharged to home bp bp
[2023-02-08 14:48] VITALS: TEMP 98
[2023-02-08 14:50] VITALS: BP 165/83; O2SAT 97
--- NOTE | 2023-02-10 07:22 | EKG ---
Test Date: 2023-02-08 Test Time: 13:08:28 Screedman/Laborer: BP MEASUREMENT RESULTS: Intervals: Rate: 73 MI: 158 QRSD: 80 QT: 400 QTc: 440 [place]: P: 37 MI: 158 QRS: 79 T: -8 INTERPRETIVE STATEMENTS: Normal sinus rhythm ST & T wave abnormality, consider inferior ischemia Abnormal ECG Compared to ECG 06/16/2022 14:32:42 ST (T wave) deviation now present Possible ischemia now present Left ventricular hypertrophy no longer present Electronically Signed On 02-10-23 07:15:15 CDT by Bill Velez
== END 2023-02-08 14:44 | disposition home or self-care (01) ==
LOC: ER 12:19
DX: M25.521 Pain in right elbow (principal); W18.30XA Fall on same level, unspecified, initial encounter; I10 Essential (primary) hypertension; F10.20 Alcohol dependence, uncomplicated; Z88.0 Allergy status to penicillin; Z88.3 Allergy status to other anti-infective agents; Z88.5 Allergy status to narcotic agent; Z88.8 Allergy status to other drugs, medicaments and biological substances; Z91.048 Other nonmedicinal substance allergy status
CPT/HCPCS: 36415; 70450; 71045; 72125; 80053; 84484; 85025; 93005; 99283